=== PATIENT | female | born 1945 | race Caucasian/White ===

== ENCOUNTER 2017-10-21 12:00 | Outpatient (RCR) | payer MEDICARE, SELFPAY ==
--- NOTE | 2017-09-13 13:21 | HP.PTEVAL_ITS ---
Patient's Visit Information PETE SCHUMACHER is a 72 year old F referred to Physical Therapy by Jh Hewitt with a diagnosis of SPONDYLOSIS OF LUMBAR REGION WITHOUT MYELOPATHY, OA KNEES. Date of Evaluation: 09/13/17 Physical Therapist: Tomer Gonzalez PT, - Visit Plan Frequency: 2x /Week Duration: 4 Weeks Plan: Aquatic PT for GRADED PROGRESSION DLS ABD/BACK,POSTURAL EX'S ,LE ROM , STRENGTHEING - Subjective Subjective: This 72 y/o female presents to physical therapy with lumbar pain with radicular symptoms in legs. Patient has had lumbar pain and radicular symptosmfor about 4 months. Pain located right lumbar radicular symtpoms buttuck hams . Symptoms worse walking,standing less than 5 min,sitting,bending , lifting. Symptoms better with heat. Bowel/bladder good. Cough/sneezing increase symptoms. Pain affects sleeepnig. Patient pain affects ADL'S and housework tasks washing ,dishing,brushing teeth. Patient symptoms affect QOL . Patient has no prior PT or falls.Patient has h/o Alzheimers. Patient ambulates with rollator. SOCIAL: single. VOCATION: retired - Pain Right Back Pain Intensity (Out of 10): 10 Pain Intensity Range: 10 Right Lower Extremity Pain Intensity (Out of 10): 10 Pain Intensity Range: 10 - Objective POSTURE: mild foward posture. GAIT: ambulates with rollator reciprocal pattern mild foward posture. NEURO: c/o parathesia/tingling right leg ,reflexes L3-4,L4 -5,L5-S1 1/3. MMT: quads/hams/hip flexion 4-/5,ankle 4/5. SYMMTRIES: align. PALPATION: tender SI/LS. LUMBAR ROM: flexion mod loss pain,extension mod/ severe loss pain,side glides mod loss pain. FLEXABLITY: hams mod tight. AROM : supine knee flexion 0-130 degrees bilateral - Special Tests L/S Slump test left side: Negative L/S Slump test right side: Positive L/S Left Straight Leg Raise: Negative L/S Right Straight Leg Raise: Positive - Goals Goal 1:: Patient to be Independant with Aquatic PT Goal Time Frame: 4-6 Weeks Goal 2:: Patient to be Independant with posture to manage lumbar pain Goal Time Frame: 4-6 Weeks Goal 3:: Patient to decrease lumbar pain and radicylar symptosm by 50% or greater to improve function. Goal Time Frame: 4-6 Weeks Goal 4:: Patient to increase strength of BLE to 4/5 to improve walking and standing. Goal Time Frame: 4-6 Weeks Goal 5:: Patient be able to walk and standing greater than 10 min to improve ADL 'S Goal Time Frame: 4-6 Weeks - Rehabilitation Potential Physical Therapy Diagnosis: This patient complexity issues with lumbar pain with poor ROM ,decrease strength ,uses rollator ,thus affects standing and ADL' S . Patient will benifit from skilled PT Rehabilitation Potential: Good - Anticipated Interventions Patient/Client Instruction: Educate patient on: Condition, Plan of Care For the Purpose of:: To decrease pain, To increase ROM, To improve muscle performance and motor function, To increase tolerance to activity/condition/ position, To improve ability of physical actions for home/community/work/leisure , To improve health of tissue, To decrease soft tissue restriction, To improve ability to perform tasks related to life management Therapeutic Exercise to Include: Strength training, Body mechanics, Postural training, Flexibilty training, In an aquatic setting, Dynamic Lumbar Stabilization For the Purpose of:: To decrease pain, To increase ROM, To improve muscle performance and motor function, To improve ability to perform ADL's, To increase tolerance to activity/condition/position, To improve ability of physical actions for home/community/work/leisure, To improve health of tissue, To decrease soft tissue restriction, To increase flexibility/ROM, To improve ability to perform tasks related to life management Thank you for the opportunity to evaluate your patient. For Medicare and Medicare HMO plans, please review the plan of care and approve it. It will need to be FAXED BACK to us at [phone] for Medicare purposes. Please let me know if there are questions or concerns regarding this plan of care. Physician Signature: Date:
--- NOTE | 2017-10-21 12:25 | HP.PTREVAL_ITS ---
Jh Hewitt, It has been my pleasure to treat PETE SCHUMACHER over the last 5 visits for SPONDYLOSIS OF LUMBAR REGION WITHOUT MYELOPATHY,OA KNEES. Please see the progress note below for an update on the physical therapy plan of care! Subjective: Seen orthopedic Lumbar surgery .. Patient is high risk for. lumbar surgery. Plan for epidural injection. MD wants to cont with Aquatic Objective/Function: POSTURE: mod foward posture ,trunk flexed foward ,hips/ knees flexed. GAIT: ambulates with rollator hips/knees flexed foward posture reciprocal pattern slow christina. MMT: quads/hams3+/5 right,left 4-/5,hip flexion right. 3+/5,left 4-/5,ankle 4/5. LUMBAR ROM: flexion mod loss, extension severe loss Plan Plan: Cont with poc Goals Goal 1:: Patient to be Independant with Aquatic PT Goal Time Frame: 4-6 Weeks Goal Progress: Progressing Goal 2:: Patient to be Independant with posture to manage lumbar pain Goal Time Frame: 4-6 Weeks Goal Progress: Progressing Goal 3:: Patient to decrease lumbar pain and radicylar symptosm by 50% or greater to improve function. Goal Time Frame: 4-6 Weeks Goal Progress: Progressing Goal 4:: Patient to increase strength of BLE to 4/5 to improve walking and standing. Goal Time Frame: 4-6 Weeks Goal Progress: Progressing Goal 5:: Patient be able to walk and standing greater than 10 min to improve ADL 'S Goal Time Frame: 4-6 Weeks Anticipated Interventions Patient/Client Instruction: Educate patient on: Condition, Plan of Care For the Purpose of:: To decrease pain, To increase ROM, To improve muscle performance and motor function, To increase tolerance to activity/condition/ position, To improve ability of physical actions for home/community/work/leisure , To improve health of tissue, To decrease soft tissue restriction, To improve ability to perform tasks related to life management Therapeutic Exercise to Include: Strength training, Body mechanics, Postural training, Flexibilty training, In an aquatic setting, Dynamic Lumbar Stabilization For the Purpose of:: To decrease pain, To increase ROM, To improve muscle performance and motor function, To improve ability to perform ADL's, To increase tolerance to activity/condition/position, To improve ability of physical actions for home/community/work/leisure, To improve health of tissue, To decrease soft tissue restriction, To increase flexibility/ROM, To improve ability to perform tasks related to life management Please do not hesitate to contact me at [phone] by phone or Fax: if you have questions or concerns regarding this new plan of care! Sincerely, Tomer Gonzalez, PT,
--- NOTE | 2018-01-27 16:24 | HP.PTDCNRP_ITS ---
HP - Discharge Summary (1) - Patient Information PETE SCHUMACHER was seen in my office for initial evaluation on 09/13/17. The following Plan of Care was established for this patient: Initial Frequency: 2x /Week Initial Duration: 4 Weeks - Anticipated Interventions Patient/Client Instruction: Educate patient on: Condition, Plan of Care For the Purpose of:: To decrease pain, To increase ROM, To improve muscle performance and motor function, To increase tolerance to activity/condition/position, To improve ability of physical actions for home/community/work/leisure, To improve health of tissue, To decrease soft tissu e restriction, To improve ability to perform tasks related to life management Therapeutic Exercise to Include: Strength training, Body mechanics, Postural training, Flexibilty training, In an aquatic setting, Dynamic Lumbar Stabilization For the Purpose of:: To decrease pain, To increase ROM, To improve muscle performance and motor function, To improve ability to perform ADL's, To increase tolerance to activity/condition/position, To improve ability of physical actions for home/community/work/leisure, To improve health of tissue, To decrease soft tissue restriction, To increase flexibility/ROM, To improve ability to perform tasks related to life management This patient was last seen in our office 10/21/17. Pertinent comments regarding their Physical therapy will appear below: Patient seen for PT for lumbar pain for Aquatic PT for DLS,postural ex's,LE STRENGTHENING. Patient plans to have epidural injection and seen Orthopedic assistive technology specialist . Thus is d/c but plan to return. At this point I will be discontinuing this patient from physical therapy. I would be happy to see this patient again in the future if found appropriate by the physician. Thank you! Tomer Gonzalez, PT, Cert MDT, OCS
== END 2017-10-21 19:00 | disposition home or self-care (01) ==
LOC: PT 12:00
PROVIDERS: Family Provider Internal Medicine; PCP Internal Medicine; Visit Provider Internal Medicine
DX: M47.816 Spondylosis without myelopathy or radiculopathy, lumbar region (principal); M17.0 Bilateral primary osteoarthritis of knee
CPT/HCPCS: 97113; 97162; 97530

== ENCOUNTER 2018-04-07 10:30 | Outpatient (RCR) | payer MEDICARE, SELFPAY ==
--- NOTE | 2018-02-03 12:49 | HP.PTEVAL_ITS ---
Patient's Visit Information PETE SCHUMACHER is a 72 year old F referred to Physical Therapy by Tanner Lopez MD with a diagnosis of LUMBOSACRAL RADICULITIS,DDD OF LUMBOSACRAL INTERVERTBRAL DISC,SPONDYLOSIOS. Date of Evaluation: 02/03/18 Physical Therapist: Tomer Gonzalez, PT, Cert MDT, OCS - Visit Plan Frequency: 2x /Week Duration: 4 Weeks Plan: Aquatic PT for lumbar ROM ,strength/flexablity BLE ,conditioning - Subjective Findings: This 72 y/o female presents to physical therapy with lumbar pain for many years. Patient pain located symmtrical lumbar described as ache. Symptoms worse with walking,standing ,standing and ADL'S. Patient has DEVELOPMENT ADMINISTRATOR assist with bathing,cleaning and cooking. Patient symptoms better with rest and sitting. Symptoms affect sleeping . Patient has parathesia legs. Patient uses QC with gait for extended distances. Bowel/bladder good. Coughing/sneezing-. Patient seen pain management for injections which helped pain. Patient pain and weakness in legs affect QOL and function. Patient has had prior PT -Aquatics. SOCIAL: single. VOCATION: retired - Pain Bilateral Back Pain Intensity (Out of 10): 8 Pain Intensity Range: 10 - Objective POSTURE: mild foward posture hips/knees flexed. PALAPTION:tender L-S. NEURO: parathesia/tingling legs ,reflexes L3-4,L4-5,L5-S1 1/3. SYMMTRIES: align. GAIT: slow cadAnce mild foward posture with 2point using QC. MMT: quads/hams 4- /5,hip flexion 3+/5,ankle 4-/5. LUMBAR ROM: mod/severe loss flexion,extension severe,side glides mod/severe. FLEXABLITY: hams min tight - Special Tests L/S Slump test left side: Negative L/S Slump test right side: Negative L/S Left Straight Leg Raise: Negative L/S Right Straight Leg Raise: Negative - Goals Goal 1:: Independant with Aquatic PT Goal Time Frame: 4-6 Weeks Goal 2:: Patient to decrease lumbar pain by 50 % or greater to improve function Goal Time Frame: 4-6 Weeks Goal 3:: Patient to improve gait with less pain by 50% community distances Goal Time Frame: 4-6 Weeks Goal 4:: Patient to improve lumbar ROM for function recovery Goal Time Frame: 4-6 Weeks Goal 5:: Patient improve ANIKA lumbar score by 5 points for QOL. Goal Time Frame: 4-6 Weeks Goal 6:: Patient to participate with ADL'S with min limitations - Rehabilitation Potential Physical Therapy Diagnosis: This patient has multiple comorbities along with pain back and legs ,poor lumbar ROM ,strength,decrease gait and standing thus benifit from skilled PT Rehabilitation Potential: Good - Anticipated Interventions Patient/Client Instruction: Educate patient on: Condition, Plan of Care For the Purpose of:: To decrease pain, To increase ROM, To improve muscle performance and motor function, To improve ability to perform ADL's, To improve performance and independence with ADL's, To improve ability of physical actions for home/community/work/leisure, To improve health of tissue, To decrease soft tissue restriction, To increase flexibility/ROM, To improve ability to perform tasks related to life management Therapeutic Exercise to Include: Strength training, Body mechanics, Postural training, Flexibilty training, In an aquatic setting, Active ROM, Dynamic Lumbar Stabilization For the Purpose of:: To decrease pain, To increase ROM, To improve muscle performance and motor function, To improve ability to perform ADL's, To increase tolerance to activity/condition/position, To improve ability of physical actions for home/community/work/leisure, To improve gait and locomotor functions, To decrease soft tissue restriction, To improve balance, To improve ability to perform tasks related to life management Thank you for the opportunity to evaluate your patient. For Medicare and Medicare HMO plans, please review the plan of care and approve it. It will need to be FAXED BACK to us at [phone] for Medicare purposes. For Medicare only, by signing this I certify the plan of care. Please let me know if there are questions or concerns regarding this plan of care. Physician Signature: Date:
--- NOTE | 2018-03-08 10:57 | HP.PTREVAL ---
Tanner Lopez MD, It has been my pleasure to treat PETE SCHUMACHER over the last 5 visits for LUMBOSACRAL RADICULITIS,DDD OF LUMBOSACRAL INTERVERTBRAL DISC,SPONDYLOSIOS. Please see the progress note below for an update on the physical therapy plan of care! Subjective: Doing better overall ..able to bend. Able to perform my ADLS at home Objective/Function: POSTURE: mild foward posture. GAIT: ambulates with rollator mild foward posture reciprocal pattern. MMT: quads/hams 4/5,hip flexion 4-/5. LUMBAR ROM: flexion min loss,extension ,mod loss,side glides min/mod loss Plan Plan: cont with POC with Aquatic PT DLS,POSTURE EX'S,LUMBAR ROM,LE STRENGTHENING Goals Goal 1:: Independant with Aquatic PT Goal Time Frame: 4-6 Weeks Goal Progress: Progressing Goal 2:: Patient to decrease lumbar pain by 50 % or greater to improve function Goal Time Frame: 4-6 Weeks Goal 3:: Patient to improve gait with less pain by 50% community distances Goal Time Frame: 4-6 Weeks Goal 4:: Patient to improve lumbar ROM for function recovery Goal Time Frame: 4-6 Weeks Goal 5:: Patient improve ANIKA lumbar score by 5 points for QOL. Goal Time Frame: 4-6 Weeks Goal 6:: Patient to participate with ADL'S with min limitations Anticipated Interventions Patient/Client Instruction: Educate patient on: Condition, Plan of Care For the Purpose of:: To decrease pain, To increase ROM, To improve muscle performance and motor function, To improve ability to perform ADL's, To improve performance and independence with ADL's, To improve ability of physical actions for home/community/work/leisure, To improve health of tissue, To decrease soft tissue restriction, To increase flexibility/ROM, To improve ability to perform tasks related to life management Therapeutic Exercise to Include: Strength training, Body mechanics, Postural training, Flexibilty training, In an aquatic setting, Active ROM, Dynamic Lumbar Stabilization For the Purpose of:: To decrease pain, To increase ROM, To improve muscle performance and motor function, To improve ability to perform ADL's, To increase tolerance to activity/condition/position, To improve ability of physical actions for home/community/work/leisure, To improve gait and locomotor functions, To decrease soft tissue restriction, To improve balance, To improve ability to perform tasks related to life management Please do not hesitate to contact me at [phone] by phone or if you have questions or concerns regarding this new plan of care! Sincerely, Tomer Gonzalez, PT, Cert MDT, OCS
--- NOTE | 2018-07-20 10:10 | HP.PT.NRP ---
HP - Discharge Summary (1) - Patient Information PETE SCHUMACHER was seen in my office for initial evaluation on 02/03/18. The following Plan of Care was established for this patient: Initial Frequency: 2x /Week Initial Duration: 4 Weeks - Anticipated Interventions Patient/Client Instruction: Educate patient on: Condition, Plan of Care For the Purpose of:: To decrease pain, To increase ROM, To improve muscle performance and motor function, To improve ability to perform ADL's, To improve performance and independence with ADL's, To improve ability of physical actions for home/community/work/leisure, To improve health of tissue, To decrease soft tissue restriction, To increase flexibility/ROM, To improve ability to perform tasks related to life management Therapeutic Exercise to Include: Strength training, Body mechanics, Postural training, Flexibilty training, In an aquatic setting, Active ROM, Dynamic Lumbar Stabilization For the Purpose of:: To decrease pain, To increase ROM, To improve muscle performance and motor function, To improve ability to perform ADL's, To increase tolerance to activity/condition/position, To improve ability of physical actions for home/community/work/leisure, To improve gait and locomotor functions, To decrease soft tissue restriction, To improve balance, To improve ability to perform tasks related to life management This patient was last seen in our office . Pertinent comments regarding their Physical therapy will appear below: Patient seen for PT for lumbar radiculopathy for Aquatic therapy focusing on ROM,strength,thus is d/c. At this point I will be discontinuing this patient from physical therapy. I would be happy to see this patient again in the future if found appropriate by the physician. Thank you! Tomer Gonzalez, PT, Cert MDT, OCS
== END 2018-04-07 19:00 | disposition home or self-care (01) ==
LOC: PT 10:30
PROVIDERS: Family Provider Internal Medicine; PCP Internal Medicine; Referring Provider Anesthesiology Pain Medicine; Visit Provider Anesthesiology Pain Medicine
DX: M54.17 Radiculopathy, lumbosacral region (principal); M51.37 Other intervertebral disc degeneration, lumbosacral region; M47.817 Spondylosis without myelopathy or radiculopathy, lumbosacral region; M79.10 Myalgia, unspecified site; M46.96 Unspecified inflammatory spondylopathy, lumbar region
CPT/HCPCS: 97113; 97162; 97530

== ENCOUNTER 2018-05-10 01:23 | Emergency (ER) | payer MEDICARE, SELFPAY ==
[2018-05-10 01:24] VITALS: BP 111/67; PULSE 75; RESP 18; TEMP 36.6; O2SAT 95; BMI 30.4
--- NOTE | 2018-05-10 01:42 | CT_ITS ---
STUDY: CT BRAIN WITHOUT CONTRAST REASON FOR EXAM: Female, 73 years old. Passed out hitting head. Dementia. RADIATION DOSAGE (If Supplied By Facility): CTDIvol = ( 44.99 ) mGy, DLP = ( 762.36 ) mGycm TECHNIQUE: Transaxial CT imaging of the brain was performed without administration of intravenous contrast material. Individualized dose optimization techniques were used for this CT. COMPARISON: January 06, 2017. FINDINGS: Normal soft tissue structures. Normal calvarium. Normal size ventricles and extra-axial spaces for the patient's age. Normal white matter tracts of the cerebral hemispheres. Normal basal ganglia and thalami. Normal brainstem. Normal cerebellum. There is no intracranial hemorrhage. There are no findings of an acute ischemic infarction. Mild ethmoid, right maxillary and left sphenoid sinus mucosal thickening. CT/Brain/Head without Contrast IMPRESSION: Normal unenhanced CT scan of the brain for the patient's age. Mild paranasal sinus mucosal thickening which has developed since the prior study. Electronically Signed: Fitz Schilling MD at 3:35 EDT , Service support ,
--- NOTE | 2018-05-10 01:42 | EKG12_ITS ---
Test Reason : Blood Pressure : / mmHG Vent. Rate : 075 BPM Atrial Rate : 075 BPM P-R Int : 160 ms QRS Dur : 082 ms QT Int : 404 ms P-R-T Axes : 062 025 063 degrees QTc Int : 451 ms Sinus rhythm with Premature atrial complexes Low voltage QRS (Limb leads) Borderline ECG Confirmed by ISHAAN FELICIANO, NORMA ([id number]), rewrite editor AUDELIA PRASAD ([id number]) on 05/13/2018 11:36:33 AM Referred By: Tanner Lopez Confirmed By:NORMA QUIROS MD
--- NOTE | 2018-05-10 01:43 | RAD_ITS ---
HISTORY: fall, bilateral hip pain COMPARISON: 12/17/2015 FINDINGS: XR AP pelvis and bilateral hips 5 views With comparison to previous, no significant change. No fracture or dislocation. Degenerative arthritis with mild narrowing of the right hip and moderate narrowing of the left hip. The SI joints are not widened. Extensive atherosclerotic calcifications. Left SFA stent graft in place. RAD/Hips B/L min 2 views w/ Pelvis IMPRESSION: 1. No fracture or acute osseous abnormality. 2. Chronic changes, as above. at 0244 Reported and signed by: Sukh Chery MD Electronically Signed: Sukh Chery, at 2:43 EDT Tel , Service support ,
--- NOTE | 2018-05-10 01:44 | ED.VIS.GEN ---
History of Present Illness Chief Complaint: Fall Narrative: She stated that she got up to use the bathroom this evening. She had a syncopal episode in the bathroom. She got lightheaded and passed out. She fell onto her buttocks. She stated she had the back of her head. She is having worsening pain in her low back. She has chronic low back pain and gets injections. She is having some pain in her buttock bilateral in the hips as well. She was able to stand up and get herself back to the couch. She is normally supposed to walk with a walker but did not take it tonight. Patient has minimal head pain. She denies any neck pain. Family and patient stated that she gets frequent syncope. She states is not uncommon for her to get up too quickly and get lightheaded and passed out. She feels no dizziness currently. Denies any other symptoms. No home treatment. Brought in by EMS. - Past Medical History (1) Dehydration Status: Acute (2) Gastroenteritis Status: Acute (3) Renal azotemia Status: Acute (4) Anxiety disorder Status: Chronic (5) History of CVA (cerebrovascular accident) Status: Chronic (6) History of DVT (deep vein thrombosis) Status: Chronic Comment: 1982 (7) Hyperlipidemia Status: Chronic (8) Peripheral vascular disease Status: Chronic (9) Type 2 diabetes mellitus Status: Chronic (10) basal ganglion bleed, history of Status: Chronic Past Medical History - Allergies and Home Meds Allergies/Adverse Reactions: Allergies atorvastatin calcium [From Lipitor] Allergy (Verified 05/10/18 01:29) Unknown calcium Allergy (Verified 05/10/18 01:29) Unknown ibuprofen [From Motrin] Allergy (Verified 05/10/18 01:29) Unknown Primary Care Physician: Jh Hewitt MD [Primary Care Provider] - Prior records reviewed: Yes Surgical History: cholecystectomy Lives: With Family Smoking Status: Current every day smoker Alcohol: None Drugs: None - Family History Paternal Family History: Reports: No pertinent history Review of Systems General: Denies: Chills, Fever, Sweats Eyes: Denies: Visual changes - bilaterally, Diplopia ENT: Denies: Rhinorrhea, Sore throat Cardiovascular: Denies: Chest pain, Palpitations Respiratory: Denies: Dyspnea, Cough, Dyspnea on exertion Gastrointestinal: Denies: Abdominal pain, Nausea, Vomiting, Diarrhea, Melena, Hematochezia Genitourinary: Denies: Dysuria, Hematuria, Frequency Musculoskeletal: Reports: Back pain, Extremity Pain Skin: Denies: Rash, Wounds Neurological: Denies: Weakness, Numbness Physical Exam Vital Signs/Narrative: Vital Signs Temp Pulse Resp BP Pulse Ox 05/10/18 01:24 97.8 F 75 18 111/67 95 General: Well nourished, Well developed, No Acute Distress Head: Normocephalic, Atraumatic Eyes: Perrl, EOMI ENT: Moist mucous membranes, No rhinorrhea Neck: Supple, Nontender Cardiovascular: Regular rate, Regular rhythm, No murmurs Respiratory: No distress, CTA bilaterally, Chest nontender Abdomen: Soft, Nontender, Nondistended, Normal bowel sounds Back: Normal Inspection, Spinal tenderness - Lower lumbar diffuse tenderness without swelling or deformity. Negative for: Nontender Extremities: Nontender, No edema, - - Tenderness to her bilateral buttock. Decreased range of motion secondary to pain in the bilateral buttock. Skin: Normal color, No rash Neurological: Alert, Oriented x3, Cranial nerves II-XII grossly intact, Normal Strength, Normal Sensation Psychological: Normal affect, Normal Mood Diagnostic/Tx/Re-eval - Medical Decision Making Given IV fluids and a dose of morphine for the pain in her back and hips. Lab work and x-ray of her low back and bilateral hips obtained as well as EKG. x-ray of the hips showed nothing acute. X-ray of the lumbar spine shows L1 compression fracture indeterminate. Patient stated this is old and she is being treated for this chronically. I do not think she needs a CT of this area. She just fell on her buttocks. He has showed nothing acute. Reevaluation patient resting comfortably. I feel she can be discharged. He had multiple episodes like this in the past. Instructed to get up slowly and use her walker. I think she likely just had an orthostatic episode. ED Disposition - Plan for ED Patient: Diagnosis: Syncope, Acute exacerbation of chronic low back pain Instructions: What Is Syncope? Referrals: Jh Hewitt MD [Primary Care Provider] -
[2018-05-10] MEDS: Morphine 2 MG/ML Syringe IV (01:49)
[2018-05-10 01:54] VITALS: O2SAT 90
[2018-05-10 01:54] LABS: Absolute Lymphocyte Count 4.07 X10^3/ul (0.83-4.51); Absolute Neutrophil Count 3.9 X10^3/uL (2.0-7.7); Basophil# 0.03 X10^3/uL; Basophil% 0.3 % (0-1); Eosinophil# 0.18 X10^3/uL; Eosinophils% 2.1 % (0-5); Hematocrit 34.7 % (37-47); Hemoglobin 11.6 g/dl (12.0-15.0); Lymphocyte # 4.07 X10^3/ul (4.0); Lymphocyte % 46.6 % (19-41); Mean Corp Hgb Conc 33.4 g/gl (32-36); Mean Corpuscular Hgb 30.1 pg (27.0-32.0); Mean Corpuscular Volume 89.9 fL (81-99); Mean Platelet Vol. 10.6 fl (6.2-12.0); Monocyte# 0.57 X10^3/uL; Monocyte% 6.5 % (0-10); Neutrophil # 3.87 X10^3/uL (2.7-7.7); Neutrophil % 44.4 % (47-70); Platelet Count 212 K/mm3 (150-450); RBC Distribution Width CV 13.4 % (11.6-14.6); RBC Distribution Width SD 43.4 fl (35.1-43.9); Red Blood Count 3.86 M/mm3 (4.2-5.4); White Blood Count 8.7 K/mm3 (4.4-11.0)
[2018-05-10 01:55] LABS: POSITIVE COUNT NO; POSITIVE DIFFERENTIAL NO; POSITIVE MORPHOLOGY NO
[2018-05-10 02:13] LABS: Anion Gap 6 (5-15); BUN 22 mg/dL (7-18); BUN/Creat Ratio 22.6 RATIO (10-20); Calcium,Total 8.8 mg/dL (8.5-10.1); Chloride 105 mmol/L (98-107); Creatinine, Serum 0.97 mg/dL (0.55-1.02); EST Glomerular Filtration Rate 60 mL/min (>60); Est Glom Filt Rate - Afr Amer 73 mL/min (>60); Glucose 169 mg/dL (74-106); Potassium 3.7 mmol/L (3.5-5.1); Sodium Level 138 mmol/L (136-145)
--- NOTE | 2018-05-10 02:15 | RAD_ITS ---
STUDY: X-RAY - LUMBAR SPINE REASON FOR EXAM: Female, 73 years old. Low back pain after fall. TECHNIQUE: 3 view(s) of the lumbar spine were obtained. COMPARISON: December 17, 2015. FINDINGS: Normal lumbar lordosis. There is no substantial scoliosis. There is a normal alignment of the vertebrae. There is now a [id number] compression fracture L1 which has developed since the prior study. An acute fracture line is not identified. Mild disc space narrowing L1-L2 and L5-S1 not significantly changed. Small marginal osteophytes at several levels. Atherosclerotic calcification of the abdominal aorta without aneurysmal dilatation visualized. The soft tissue structures are unremarkable. RAD/Lumbar Spine 2 or 3 Views IMPRESSION: Compression fracture of L1 age indeterminate. If the patient has focal tenderness at this specific location correlate with cross-sectional imaging. Mild multilevel degenerative changes. Electronically Signed: Fitz Schilling MD at 3:31 EDT , Service support ,
[2018-05-10 03:14] VITALS: BP 113/68; PULSE 76; RESP 20; O2SAT 94
[2018-05-10 03:35] VITALS: BP 110/83; PULSE 81; RESP 16; O2SAT 95
== END 2018-05-10 03:48 | disposition home or self-care (01) ==
PROVIDERS: Emergency Provider Emergency Medicine; Family Provider Internal Medicine; PCP Internal Medicine
DX: R55 Syncope and collapse (principal); W19.XXXA Unspecified fall, initial encounter; Y93.9 Activity, unspecified; Y92.9 Unspecified place or not applicable; Y99.9 Unspecified external cause status; M54.5 Low back pain; G89.29 Other chronic pain; M25.552 Pain in left hip; M25.551 Pain in right hip; R51 Headache; E11.9 Type 2 diabetes mellitus without complications; E78.5 Hyperlipidemia, unspecified; I73.9 Peripheral vascular disease, unspecified; F41.9 Anxiety disorder, unspecified; F17.200 Nicotine dependence, unspecified, uncomplicated; Z79.82 Long term (current) use of aspirin; Z79.4 Long term (current) use of insulin; Z79.899 Other long term (current) drug therapy; Z86.718 Personal history of other venous thrombosis and embolism; Z86.73 Personal history of transient ischemic attack (TIA), and cerebral infarction without residual deficits
CPT/HCPCS: 70450; 72100; 73521; 80048; 84484; 85025; 93005; 96361; 96374; 99285; J7040; A4216

== ENCOUNTER 2018-11-16 19:04 | Observation (INO) | payer MEDICARE, SELFPAY ==
[2018-11-16 19:06] VITALS: BP 168/76; PULSE 79; PULSE 83; RESP 15; RESP 17; TEMP 36.4; TEMP 36.6; O2SAT 97; O2SAT 99; BMI 30.9
--- NOTE | 2018-11-16 19:57 | CT_ITS ---
STUDY: CT BRAIN WITHOUT CONTRAST REASON FOR EXAM: Female, 73 years old. Fall. Pain. RADIATION DOSAGE (If Supplied By Facility): CTDIvol = ( 44.99 ) mGy, DLP = ( 762.36 ) mGycm TECHNIQUE: Transaxial CT imaging of the brain was performed without administration of intravenous contrast material. Individualized dose optimization techniques were used for this CT. COMPARISON: 05/10/2018 FINDINGS: Normal soft tissue structures. Normal calvarium. Normal size ventricles and extra-axial spaces for the patient's age. Normal white matter tracts of the cerebral hemispheres. Normal basal ganglia and thalami. Normal brainstem. Normal cerebellum. There is no intracranial hemorrhage. There are no findings of an acute ischemic infarction. Normal visualized paranasal sinuses. CT/Brain/Head without Contrast IMPRESSION: Normal unenhanced CT scan of the brain. Electronically Signed: Mick Padron MD at 21:00 EDT , Service support ,
--- NOTE | 2018-11-16 19:58 | RAD_ITS ---
STUDY: X-RAY - PELVIS AND RIGHT HIP REASON FOR EXAM: Female, 73 years old. Fall. Pain. TECHNIQUE: 3 views of the pelvis and hip. COMPARISON: None. FINDINGS: There is a non-specific bowel gas pattern. There are atherosclerotic vascular calcifications of the pelvic arteries. Normal bilateral iliac wings, sacroiliac joints and visualized sacrum. Normal bilateral superior and inferior pubic rami. Normal pubic symphysis. Normal bilateral ischial tuberosities. Normal visualized femoral head. Normal acetabulum. Normal hip joint. RAD/HIP, UNI W/ Pelvis 2-3 Views IMPRESSION: No definite fractures or dislocations. Electronically Signed: Mick Padron MD at 21:01 EDT , Service support ,
--- NOTE | 2018-11-16 19:58 | EKG12_ITS ---
Test Reason : FALL Blood Pressure : / mmHG Vent. Rate : 085 BPM Atrial Rate : 085 BPM P-R Int : 160 ms QRS Dur : 082 ms QT Int : 380 ms P-R-T Axes : 062 029 054 degrees QTc Int : 452 ms Normal sinus rhythm Low voltage QRS Borderline ECG Confirmed by KAREEN FELICIANO, KARINA ([id number]), writer editor AUDELIA PRASAD ([id number]) on 11/23/2018 9:32:49 A M Referred By: Augustin Burciaga Confirmed By:KJ MATHUR MD
--- NOTE | 2018-11-16 20:04 | ED.DCSUM_ITS ---
- ER Visit Summary Date of Service: 11/16/18 Chief Complaint: Fall History of Present Illness: The patient is a 73 F presenting after fall. Patient was walking with her walker. She states the next thing she knows she woke up on the floor. She complains of right hip pain. She was able to get help to stand and was able to ambulate with pain after the fall. She states she has been getting dizzy recently and was seen by her primary care physician and had orthostatic vitals which were positive in the office. She denies chest pain or shortness of breath. Family states she has a history of dementia. She lives with her grandson. Physical Examination: Vitals are stable. Patient is afebrile. Alert no acute distress. HEENT exam is unremarkable. Neck is nontender Lungs are clear and equal bilaterally. Heart is regular rate and rhythm. Abdomen is soft nontender nondistended. Extremities right hip tenderness to palpation Skin is warm and dry. No focal neurologic deficit. Remainder of exam is unremarkable. Emergency Department Course and Treatment: EKG is sinus rate of 85. CBC normal except hemoglobin 11.5. Chemistries normal except BUN 25, creatinine 1.22. Urinalysis shows over 100 white blood cells. Urine culture was sent. Troponin is negative. Right hip x-ray shows no fracture. CT head shows no acute process. Patient was given Rocephin IV. She was given IV fluids, morphine, Zofran. Discussed with the hospitalist for observation. Disposition: Observation Impression: Syncope, UTI, right hip contusion This note was generated with [employer] dictation software. It may contain incorrect words, spelling, and punctuation that were not noted in review of the chart prior to signing ED Disposition - Plan for ED Patient: Referrals: Jh Hewitt MD [Primary Care Provider] -
[2018-11-16 20:20] LABS: Absolute Neutrophil Count 5.7 X10^3/uL (2.0-7.7); Basophil# 0.04 X10^3/uL; Basophil% 0.4 % (0-1); Hematocrit 36.4 % (37-47); Hemoglobin 11.5 g/dL (12.0-15.0); Lymphocyte % 39.2 % (19-41); Mean Corp Hgb Conc 31.6 g/dL (32-36); Mean Corpuscular Hgb 28.9 pg (27.0-32.0); Mean Corpuscular Volume 91.5 fL (81-99); Mean Platelet Vol. 11.9 fl (6.2-12.0); Monocyte% 4.8 % (0-10); NRBC Flagged by Analyzer 0 % (0-5); Neutrophil # 5.68 X10^3/uL (2.7-7.7); Neutrophil % 54.2 % (47-70); Platelet Count 209 K/mm3 (150-450); RBC Distribution Width SD 49.9 fl (35.1-43.9); Red Blood Count 3.98 M/mm3 (4.2-5.4); White Blood Count 10.5 K/mm3 (4.4-11.0)
[2018-11-16] MEDS: Ondansetron 4 MG/2 ML Vial IV (20:22)
[2018-11-16] MEDS: Morphine 2 MG/ML Syringe IV ×2 (20:24→21:52)
[2018-11-16 20:35] LABS: Anion Gap 9 (5-15); BUN 25 mg/dL (7-18); BUN/Creat Ratio 20.5 RATIO (10-20); Calcium,Total 8.9 mg/dL (8.5-10.1); Chloride 106 mmol/L (98-107); Creatinine, Serum 1.22 mg/dL (0.55-1.02); EST Glomerular Filtration Rate 46 mL/min (>60); Est Glom Filt Rate - Afr Amer 56 mL/min (>60); Estimated Creatinine Clearance 34.99 ml/min; Glucose 63 mg/dL (74-106); Potassium 4.2 mmol/L (3.5-5.1); Sodium Level 143 mmol/L (136-145)
[2018-11-16 20:36] LABS: Color, Urine Yellow (Yellow); Glucose, Dipstick Normal (Normal); Ketone-Dipstick Negative (Negative); Leukocyte Esterase-Dipstick 500 /ul (Negative); Mucous, Urine 0 SEEN /hpf (<or=2+); Nitrite-Dipstick Positive (Negative); Occult Blood-Urine 25 /ul (Negative); Protein-Dipstick 15 mg/dl (Negative); Red Blood Cells-Urine 0 SEEN /hpf (0-5); Urine Bilirubin Dipstick Negative (Negative); Urine Clarity Sl. Cloudy (Clear); Urine Urobilinogen Normal (Normal)
[2018-11-16 20:52] LABS: Bacteria 4+ /hpf (None Seen); Squamous Epithelial Cells - UA 0-5 SEEN /hpf (5-10); White Blood Cells >100 SEEN /hpf (0-5)
[2018-11-16 21:11] VITALS: BP 161/74; PULSE 85; RESP 20; O2SAT 97
[2018-11-16] MEDS: Ceftriaxone 1 GM/50 ML BAG IV (21:16)
[2018-11-16 21:54] VITALS: BP 153/73; PULSE 88; RESP 20; O2SAT 98
--- NOTE | 2018-11-16 21:56 | PCM.HP.STD ---
Problem List (1) Acute on recurrent syncope with collapse Status: Acute (2) Gastroenteritis Status: Inactive (3) Peripheral vascular disease Status: Chronic (4) History of DVT (deep vein thrombosis) Status: Chronic Comment: 1981 (5) basal ganglion bleed, history of Status: Chronic (6) Hyperlipidemia Status: Chronic (7) Type 2 diabetes mellitus Status: Chronic (8) History of CVA (cerebrovascular accident) Status: Chronic (9) Renal azotemia Status: Inactive (10) Anxiety disorder Status: Chronic (11) Acute on recurrent fall Status: Acute History of Present Illness Date of Admission: 11/16/18 Chief Complaint: Syncope with fall and collapse The patient is a 73 year old F with multiple comorbidities including 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 Patient said she was walking with walker and suddenly she passed out and fell on her right hip. Patient denies prodromal symptoms of dizziness, blurry vision. She passed out for a few minutes and woke up with drowsiness/lethargic and came back to normal senses after an hour. Similar event happened about a month ago when she also passed out with fall and at that time her walker was caught. She is back to her normal since. Complain of pain over right hip. Initial evaluation in ED with x-ray and CT head does not show acute change. No fracture or dislocation of hip and pelvis. At home, patient is on midodrine all the exact indication unclear what might have POTS/orthostatic hypotension. Vitals are stable. EKG shows normal sinus rhythm at 85 bpm. Previous EKG of May 2018 was also noted normal sinus rhythm with PACs. Patient complain of dysuria/burning micturition along with skin urgency for about 3 days. Patient also has suprapubic/perineal pain. UA is positive of pyuria more than 100 cells, 4+ bacteria, LE and nitrite positive. No leukocytosis on WBC count.. [] Past Medical History Past Medical History (Chronic Problems): Chronic Problems Peripheral vascular disease (Chronic) History of DVT (deep vein thrombosis) (Chronic) 1981 basal ganglion bleed, history of (Chronic) Hyperlipidemia (Chronic) Type 2 diabetes mellitus (Chronic) History of CVA (cerebrovascular accident) (Chronic) Anxiety disorder (Chronic) Allergies atorvastatin calcium [From Lipitor] Allergy (Verified 11/16/18 19:05) Unknown calcium Allergy (Verified 11/16/18 19:05) Unknown ibuprofen [From Motrin] Allergy (Verified 11/16/18 19:05) Unknown Home Medications: Ambulatory Orders Medication Instructions Recorded Aspirin [Aspirin, Baby] 81 mg PO DAILY@0800 03/09/13 Gabapentin [Neurontin] 100 mg PO TID 03/09/13 Metformin HCl [Glucophage] 1,000 mg PO BID 03/09/13 Pioglitazone [Actos] 45 mg PO DAILY 03/09/13 Clonazepam 0.5 mg PO BID PRN PRN 10/19/13 Omeprazole [Prilosec] 20 mg PO BID 10/19/13 Venlafaxine HCl [Effexor] 75 mg PO BID 10/19/13 Albuterol Inhaler [Ventolin Hfa] 1 puff INHALATION Q4H PRN PRN 01/03/14 Olanzapine [Zyprexa] 5 mg PO QHS 01/03/14 Fluticasone/Salmeterol [Advair 1 puff INHALATION BID #1 inhaler 05/15/14 250/50 Mcg Diskus] Insulin Glargine [Lantus SoloStar 65 units SC BID 05/15/14 Pen] Adalimumab [Humira] 40 mg SQ Q14D 05/25/15 Cholecalciferol (VIT D3) [Vitamin 1,000 mg PO DAILY 01/06/17 D3] Midodrine HCl [Proamatine] 10 mg PO TID 01/06/17 Rosuvastatin Calcium [Crestor] 20 mg PO QHS 01/06/17 Calcium Carbonate 500 mg PO BID 11/16/18 Hydrocortisone 2.5% Crm [Hytone] 1 applic TOPICAL BID 11/16/18 Insulin Lispro [Humalog KwikPen] 6 unit SQ TID 11/16/18 Memantine HCl 5 mg PO BID 11/16/18 Surgical History: cholecystectomy Smoking Status: Current every day smoker - *Family History Paternal History Items: No pertinent history Review of Systems Constitutional: Reports: Fatigue. Denies: Chills, Fever, Weight Change HEENT: Denies: Head Aches, Sinus Congestion, Sinus Drainage Cardiovascular: Denies: Chest Pain, Palpitations Respiratory: Denies: Cough, Shortness of breath at rest, Sputum production Gastrointestinal: Denies: Abdominal Pain, Nausea, Vomiting Genitourinary: Reports: Dysuria, Frequency, Hesitancy, Incontinence, Urgency Musculoskeletal: Reports: Joint Pain, Joint stiffness. Denies: Joint Tenderness Skin: Denies: Rash, Wounds Neurological: Reports: Balance problems - On walker, Incoordination. Denies: Blurred vision, Double vision, Focal weakness, Numbness, Tingling Psychiatric: Reports: Anxiety, Depression. Denies: Homicidal Ideations, Suicidal Ideations Hematologic/ Lymphatic: Denies: Easy Bruising, Easy Bleeding VTE Information - Inpt Only VTE Present on Admission: No VTE Mechan Device Prophylaxis: None VTE Pharm Prophylaxis ordered?: Yes Patient Problems: Active and Suspected Problems Acute on recurrent syncope with collapse (Acute) Acute on recurrent fall (Acute) - Physical Exam General: Alert, Oriented x3, Cooperative HEENT: Atraumatic, PERRLA, EOMI, Normocephalic Oral: Dry Mucosa Neck: Supple, No JVD, Negative Carotid Bruits Lungs: Clear to auscultation, Normal air movement, No rhonchi, No wheeze, No rales Cardiovascular: Regular rate, Regular Rhythm, Normal S1, Normal S2, No murmurs Abdomen: Bowel Sounds Present, Soft, Non-Distended, - - Mild suprapubic tenderness. Extremities: No edema, Capillary Refill Less than 3 Seconds Skin: No rashes, No breakdown Musculoskeletal: Arthritic Changes, Tenderness - Tenderness present over lateral aspect of right hip and pelvis. No point tenderness over groin area/hip joint Neurological: Cranial nerves II-XII grossly intact, Deep Tendon Reflexes 2+/4 and Symmetrical, Neuro grossly intact Psych/Mental Status: Normal Affect, Appropriate Vital Signs Temp Pulse Resp BP Pulse Ox 97.9 F 88 20 H 153/73 H 98 11/16/18 19:06 11/16/18 21:54 11/16/18 21:54 11/16/18 21:54 11/16/18 21:54 Oxygen Delivery Method Room Air Weight: 174 lb 6.17 oz Body Mass Index (BMI) 30.9 Laboratory Tests Past 24 Hrs 11/16/18 11/16/18 11/16/18 19:31 19:31 20:26 WBC 10.5 RBC 3.98 L Hgb 11.5 L Hct 36.4 L MCV 91.5 MCH 28.9 MCHC 31.6 L RDW Std Deviation 49.9 H RDW Coeff of Fadumo 15.0 H Plt Count 209 MPV 11.9 Immature Gran % (Auto) 0.400 Neut % (Auto) 54.2 Lymph % (Auto) 39.2 [place] % (Auto) 4.8 Eos % (Auto) 1.0 Baso % (Auto) 0.4 Absolute Neuts (auto) 5.7 Absolute Lymphs (auto) 4.10 Nucleated RBC % 0 Sodium 143 Potassium 4.2 Chloride 106 Carbon Dioxide 28.0 Anion Gap 9 BUN 25 H Creatinine 1.22 H Estim Creat Clear Calc 34.99 Est GFR (MDRD) Af Amer 56 L Est GFR (MDRD) Non-Af 46 L BUN/Creatinine Ratio 20.5 H Glucose 63 L Calcium 8.9 Troponin I < 0.015 Urine Color Yellow Urine Clarity Sl. 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 Patient said she was walking with walker and suddenly she passed out and fell on her right hip. Patient denies prodromal symptoms of dizziness, blurry vision. She passed out for a few minutes and woke up with drowsiness/lethargic and came back to normal senses after an hour. EKG shows normal sinus rhythm at 85 bpm. Previous EKG of May 2018 was also noted normal sinus rhythm with PACs. 1. Syncope with collapse and fall 2 times in last 1 month; possible related to UTI/polypharmacy as she is on multiple antipsychotic medications: Patient is being admitted in PCU. Orthostatic vitals, 2D echo tomorrow morning. Serial troponin enzymes. Patient denies history of coronary artery disease but has peripheral arterial disease. Previous echo of January 2017 shows EF 65% with a stage I diastolic dysfunction. Age-related changes of valves. Mild aortic stenosis. Otherwise unremarkable. IV fluid normal saline at 100 mL/h. PT and OT ordered 2. Cystitis/UTI: Patient HAS dysuria/burning micturition along with skin urgency for about 3 days. UA is positive of pyuria more than 100 cells, 4+ bacteria, LE and nitrite positive. No leukocytosis on WBC count.This may be degenerative for her syncope/fall. Started on IV Rocephin. Follow urine culture. Boyer catheter was inserted in ED, indication unclear 3. Type 2 diabetes mellitus: Accu-Chek before meals and at bedtime and cover with Humalog sliding scale. Glucose is 63 mg in BMP. Oral hypoglycemic agents on hold. 4. Multiple comorbidities including history of DVT and history of CVA, peripheral arterial disease of visceral arteries, celiac trunk and SMA.: Home meds reconciliation done. She is not on oral anticoagulants at home. 5. Patient also has dementia, anxiety and depression: Patient is on memantine, clonazepam, Zyprexa and Effexor. Hold medication if patient is lethargic, disoriented or confusion/sedated. DVT prophylaxis: Lovenox 40 mg subcu daily. Laboratory Results 11/16/18 19:31: WBC 10.5, RBC 3.98 L, Hgb 11.5 L, Hct 36.4 L, MCV 91.5, MCH 28.9, MCHC 31.6 L, RDW Std Deviation 49.9 H, RDW Coeff of Fadumo 15.0 H, Plt Count 209, MPV 11.9, Immature Gran % (Auto) 0.400, Neut % (Auto) 54.2, Lymph % (Auto) 39.2, [place] % (Auto) 4.8, Eos % (Auto) 1.0, Baso % (Auto) 0.4, Absolute Neuts (auto) 5.7, Absolute Lymphs (auto) 4.10, Nucleated RBC % 0 11/16/18 19:31: Sodium 143, Potassium 4.2, Chloride 106, Carbon Dioxide 28.0, Anion Gap 9, BUN 25 H, Creatinine 1.22 H, Estim Creat Clear Calc 34.99, Est GFR (MDRD) Af Amer 56 L, Est GFR (MDRD) Non-Af 46 L, BUN/Creatinine Ratio 20.5 H, Glucose 63 L, Calcium 8.9, Troponin I < 0.015 11/16/18 20:26: Urine Color Yellow, Urine Clarity Sl. Cloudy, Urine pH 8.0, Ur Specific Speculator 1.010, Urine Protein 15 H, Urine Glucose (UA) Normal, Urine Ketones Negative, Urine Occult Blood 25 H, Urine Nitrite Positive H, Urine Bilirubin Negative, Urine Urobilinogen Normal, Ur Leukocyte Esterase 500 H, Urine RBC 0 SEEN, Urine WBC >100 SEEN, Ur Squamous Epith Cells 0-5 SEEN, Urine Bacteria 4+, Urine Mucus 0 SEEN Clinical Impression(s) from Imaging Studies Brain CT 11/16/18 19:57 IMPRESSION: Normal unenhanced CT scan of the brain. Hip/Pelvis X-Ray 11/16/18 19:58 IMPRESSION: No definite fractures or dislocations. Code Visit OBSV E&M: 17396 Initial observation care L3
[2018-11-16 22:08] VITALS: BMI 29.6
[2018-11-16 22:15] VITALS: PULSE 82
[2018-11-16 22:17] VITALS: BP 120/64; BP 130/66; PULSE 82; RESP 18; TEMP 36.6; O2SAT 93
[2018-11-16 22:18] VITALS: BMI 29.6
[2018-11-16 22:55] LABS: Magnesium 1.4 mg/dL (1.6-2.6)
[2018-11-16 22:57] VITALS: BP 125/66; BP 66/36; BP 97/56; PULSE 82; PULSE 85; PULSE 90
[2018-11-16] MEDS: 0.9% Normal Saline 1,000 ML 75 ML IV (23:04)
[2018-11-16 23:26] LABS: Bedside Glucose 67 mg/dL (70-110)
[2018-11-16] MEDS: 0.9% NaCl Peripheral Flush Adult/Peds IV (23:48)
[2018-11-16] MEDS: 0.9% Normal Saline 1,000 ML 100 ML IV (23:50)
[2018-11-16] MEDS: Midodrine HCl 5 MG Tablet 10 MG PO (23:52)
[2018-11-16] MEDS: Gabapentin 100 MG Capsule PO (23:52)
[2018-11-16] MEDS: Enoxaparin 40 MG/0.4 ML Syringe SC (23:53)
[2018-11-16] MEDS: Rosuvastatin 20 MG Tablet PO (23:55)
[2018-11-16] MEDS: OLANZapine 5 MG/TAB TAB.RAPDIS PO (23:56)
[2018-11-17] VITALS (13 sets, daily range): BP systolic 95–123; BP diastolic 41–61; PULSE 78–95; RESP 16–18; TEMP 36.6–36.9; O2SAT 91–99
--- NOTE | 2018-11-17 02:30 | NURSING ---
Minerva self given report and taking over care of pt at this time.
[2018-11-17 03:03] LABS: ALB/GLOB Ratio 0.9 RATIO (0.9-2.4); AST(SGOT) 106 U/L (15-37); Alanine Aminotransfer ALT/SGPT 43 U/L (13-56); Alkaline Phosphatase 119 U/L (45-117); Anion Gap 4 (5-15); BUN 21 mg/dL (7-18); Calcium,Total 8.5 mg/dL (8.5-10.1); Chloride 109 mmol/L (98-107); Cholesterol 112 mg/dL (200); EST Glomerular Filtration Rate 58 mL/min (>60); Est Glom Filt Rate - Afr Amer 70 mL/min (>60); Estimated Creatinine Clearance 42.68 ml/min; Globulin 3.2 g/dL (2.2-4.2); Glucose 121 mg/dL (74-106); High Density Lipoprotein 41 mg/dL; Potassium 4.1 mmol/L (3.5-5.1); Protein, Total 6.2 g/dL (6.4-8.2); Sodium Level 142 mmol/L (136-145); Thyroid Stim Hormone (TSH) 2.32 uIU/mL (0.358-3.74); Triglycerides 132 mg/dL; Very Low Density Lipoprotein 26 mg/dL (5-40)
[2018-11-17 03:12] LABS: Hemoglobin A1c 7.9 % (4.2-6.3)
[2018-11-17] MEDS: oxyCODONE 5 MG Tablet PO ×3 (05:54→21:47)
[2018-11-17] MEDS: Gabapentin 100 MG Capsule PO ×3 (05:55→21:50)
[2018-11-17] MEDS: Midodrine HCl 5 MG Tablet 10 MG PO ×3 (05:55→21:49)
--- NOTE | 2018-11-17 05:55 | ECHOD_ITS ---
Reason For Study: SYNCOPE Procedure This was a 2D Doppler, Color Flow transthoracic echocardiogram. Exam performed portable in patient room. Left Ventricle Normal LV size. Concentric left ventricular hypertrophy. The estimated ejection fraction is 75 %. Stage 2 diastolic dysfunction. No regional wall motion abnormalities noted. Right Ventricle Normal RV size. Normal systolic function. Atria Normal left atrium. Normal right atrium. No doppler evidence for ASD. Mitral Valve There is mild to moderate mitral annular calcification. There is no mitral valve stenosis. No mitral valve insufficiency. Tricuspid Valve There is no tricuspid stenosis. Trivial tricuspid valve insufficiency. Pulmonary artery systolic pressure is 35 mmHg. Aortic Valve Trisinus/trileaflet aortic valve. Mild diffuse aortic valve thickening. Mild aortic stenosis. No aortic valve insufficiency. Pulmonic Valve There is no pulmonic valvular stenosis. No pulmonic valve insufficiency. Great Vessels Normal aortic root. Pericardium/Pleural No pericardial effusion. MMode/2D Measurements & Calculations LVIDd: 3.5 cm IVSd: 1.2 cm LVOT diam: 1.7 cm LVIDs: 2.1 cm LVPWd: 0.91 cm LVOT area: 2.4 cm2 RVDd: 3.3 cm FS: 39.9 % Ao root diam: 3.0 cm LAV(MOD-bp): 50.8 ml Aortic Valve Planimetry: 1.9 cm2 LAV(MOD-bp) Indexed: 28.4 ml/m2 LAV(MOD-sp2): 49.3 ml LAV(MOD-sp4): 48.3 ml LA dimension(2D): 4.2 cm LA A4 area: 19.2 cm2 RA A4 area: 15.1 cm2 Time Measurements MV dec time: 0.36 sec Doppler Measurements & Calculations MV E max rubio: 122.2 cm/sec Lat Peak E' Rubio: 8.9 cm/sec Med Peak E' Rubio: 5.6 cm/sec MV A max rubio: 150.6 cm/sec E/E' lat: 13.7 E/E' med: 22.0 MV E/A: 0.81 MV V2 max: 153.7 cm/sec Ao V2 max: 159.5 cm/sec LV V1 max: 121.5 cm/sec MV max P.5 mmHg Ao max P.2 mmHg LV V1 max P.9 mmHg MV V2 mean: 105.9 cm/sec Ao V2 mean: 118.2 cm/sec LV V1 mean P.8 mmHg MV mean P.8 mmHg Ao mean P.1 mmHg LV V1 mean: 94.2 cm/sec MV V2 VTI: 45.0 cm Ao V2 VTI: 36.5 cm LV V1 VTI: 29.5 cm MVA(VTI): 1.5 cm2 GRANT(I,D): 1.9 cm2 GRANT(V,D): 1.8 cm2 SV(LVOT): 69.5 ml TR max rubio: 259.6 cm/sec MV P1/2t-pr_phl: 109.2 msec TR max P.1 mmHg Interpretation Summary The estimated ejection fraction is 75 %. Stage 2 diastolic dysfunction. Mild diffuse aortic valve thickening. Mild aortic stenosis. Ordering Physician: Augustin Burciaga Referring Physician: JESS HART Performed By: Maxine Patel RDCS, RVT
--- NOTE | 2018-11-17 06:40 | NURSING ---
called breakfast for patient.
[2018-11-17 06:55] LABS: Bedside Glucose 120 mg/dL (70-110)
[2018-11-17] MEDS: Budesonide Respules 0.5 MG/2 ML AMPUL.NEB. INHALATION ×2 (07:23→19:30)
[2018-11-17] MEDS: Albuterol 2.5 MG/3 ML VIAL.NEB. INHALATION ×2 (07:23→19:30)
[2018-11-17] MEDS: Calcium (Elemental) 500 MG Tablet PO ×2 (08:25→16:19)
[2018-11-17] MEDS: Aspirin 81 MG TAB.CHEW PO (08:25)
[2018-11-17] MEDS: Venlafaxine HCl 75 MG Tablet PO ×2 (08:25→21:44)
[2018-11-17] MEDS: Polyethylene Glycol 3350 17 GM PACKET PO (08:26)
[2018-11-17] MEDS: Pantoprazole Sodium 20 MG Tablet PO ×2 (08:26→21:49)
[2018-11-17] MEDS: Enoxaparin 40 MG/0.4 ML Syringe SC (08:26)
[2018-11-17] MEDS: 0.9% Normal Saline 1,000 ML 100 ML IV ×2 (08:29→18:30)
[2018-11-17] MEDS: Insulin Lispro 100 UNIT/ML INSULN.PEN SC ×2 (11:28→21:45)
[2018-11-17 11:36] LABS: Bedside Glucose 164 mg/dL (70-110)
--- NOTE | 2018-11-17 12:39 | PN_ITS ---
<Avelina Goodwin - Last Filed: 11/17/18 12:48> Patient Problems: Active and Suspected Problems Acute on recurrent syncope with collapse (Acute) Acute on recurrent fall (Acute) Subjective: Patient seen and examined. Drowsy during assessment. Patient reports she has had recurrent falls in the past month. Denies current complaints. - Physical Exam General: Alert, Oriented x3, Cooperative HEENT: Atraumatic, PERRLA, EOMI, Normocephalic Neck: Supple, No JVD, Negative Carotid Bruits Lungs: Clear to auscultation, Normal air movement Cardiovascular: Regular rate, Regular Rhythm, Normal S1, Normal S2, No murmurs Abdomen: Bowel Sounds Present, Soft, Non Tender, Non-Distended, Obese Extremities: No clubbing, No cyanosis, No edema, Capillary Refill Less than 3 Seconds Skin: No rashes, No breakdown Musculoskeletal: No Tenderness to Palpation of Joints or Extremities Neurological: Cranial nerves II-XII grossly intact, Neuro grossly intact Psych/Mental Status: Flat Affect Vital Signs Temp Pulse Resp BP Pulse Ox 97.8 F 85 16 112/54 L 99 11/17/18 11:00 11/17/18 11:00 11/17/18 11:00 11/17/18 11:00 11/17/18 11:00 Oxygen Delivery Method Room Air Weight: 167 lb 5.294 oz Body Mass Index (BMI) 29.6 Orthostatic Vital Signs Start: 11/16/18 22:57 Freq: q24h Status: Active Protocol: Activity Type Activity Date Activity User E-Sign Co-Sign Detail Recorded Client Recorded Date Recorded By Document 11/17/18 06:12 AMB [id number] 11/17/18 06:13 AMB 11/17/18 06:12 Orthostatic Vitals Standing -Blood Pressure (90/60-120/80) 96/41 L -Extremity Use Right Arm -Pulse Rate (60-100) 90 Sitting -Blood Pressure (90/60-120/80) 95/54 L -Extremity Use Right Arm -Pulse Rate (60-100) 95 Lying -Blood Pressure (90/60-120/80) 107/55 L -Extremity Use Right Arm -Pulse Rate (60-100) 79 Intake and Output for Last 24 Hours 11/15/18 11/16/18 11/17/18 23:59 23:59 23:59 Intake Total 606.25 / 966.25 2944 / 2944 Output Total 1650 / 1650 Balance 606.25 / 966.25 1294 / 1294 Laboratory Tests Past 24 Hrs 11/16/18 11/16/18 11/16/18 19:31 19:31 19:31 WBC 10.5 RBC 3.98 L Hgb 11.5 L Hct 36.4 L MCV 91.5 MCH 28.9 MCHC 31.6 L RDW Std Deviation 49.9 H RDW Coeff of Fadumo 15.0 H Plt Count 209 MPV 11.9 Immature Gran % (Auto) 0.400 Neut % (Auto) 54.2 Lymph % (Auto) 39.2 [place] % (Auto) 4.8 Eos % (Auto) 1.0 Baso % (Auto) 0.4 Absolute Neuts (auto) 5.7 Absolute Lymphs (auto) 4.10 Nucleated RBC % 0 Sodium 143 Potassium 4.2 Chloride 106 Carbon Dioxide 28.0 Anion Gap 9 BUN 25 H Creatinine 1.22 H Estim Creat Clear Calc 34.99 Est GFR (MDRD) Af Amer 56 L Est GFR (MDRD) Non-Af 46 L BUN/Creatinine Ratio 20.5 H Glucose 63 L Hemoglobin A1c Calcium 8.9 Magnesium 1.4 L Total Bilirubin AST ALT Alkaline Phosphatase Troponin I < 0.015 Total Protein Albumin Globulin Albumin/Globulin Ratio Triglycerides Cholesterol LDL Cholesterol VLDL Cholesterol HDL Cholesterol TSH Urine Color Urine Clarity Urine pH Ur Specific [place] Urine Protein Urine Glucose (UA) Urine Ketones Urine Occult Blood Urine Nitrite Urine Bilirubin Urine Urobilinogen Ur Leukocyte Esterase Urine RBC Urine WBC Ur Squamous Epith Cells Urine Bacteria Urine Mucus 11/16/18 11/16/18 11/17/18 20:26 22:50 01:45 WBC RBC Hgb Hct MCV MCH MCHC RDW Std Deviation RDW Coeff of Fadumo Plt Count MPV Immature Gran % (Auto) Neut % (Auto) Lymph % (Auto) [place] % (Auto) Eos % (Auto) Baso % (Auto) Absolute Neuts (auto) Absolute Lymphs (auto) Nucleated RBC % Sodium 142 Potassium 4.1 Chloride 109 H Carbon Dioxide 29.0 Anion Gap 4 L BUN 21 H Creatinine 1.00 Estim Creat Clear Calc 42.68 Est GFR (MDRD) Af Amer 70 Est GFR (MDRD) Non-Af 58 L BUN/Creatinine Ratio 21.0 H Glucose 121 H Hemoglobin A1c Calcium 8.5 Magnesium Total Bilirubin 0.20 AST 106 H ALT 43 Alkaline Phosphatase 119 H Troponin I < 0.015 Total Protein 6.2 L Albumin 3.0 L Globulin 3.2 Albumin/Globulin Ratio 0.9 Triglycerides 132 Cholesterol 112 LDL Cholesterol 45 VLDL Cholesterol 26 HDL Cholesterol 41 TSH 2.32 Urine Color Yellow Urine Clarity Sl. Cloudy Urine pH 8.0 Ur Specific Gilbert 1.010 Urine Protein 15 H Urine Glucose (UA) Normal Urine Ketones Negative Urine Occult Blood 25 H Urine Nitrite Positive H Urine Bilirubin Negative Urine Urobilinogen Normal Ur Leukocyte Esterase 500 H Urine RBC 0 SEEN Urine WBC >100 SEEN Ur Squamous Epith Cells 0-5 SEEN Urine Bacteria 4+ Urine Mucus 0 SEEN 11/17/18 11/17/18 01:45 01:45 WBC RBC Hgb Hct MCV MCH MCHC RDW Std Deviation RDW Coeff of Fadumo Plt Count MPV Immature Gran % (Auto) Neut % (Auto) Lymph % (Auto) [place] % (Auto) Eos % (Auto) Baso % (Auto) Absolute Neuts (auto) Absolute Lymphs (auto) Nucleated RBC % Sodium Potassium Chloride Carbon Dioxide Anion Gap BUN Creatinine Estim Creat Clear Calc Est GFR (MDRD) Af Amer Est GFR (MDRD) Non-Af BUN/Creatinine Ratio Glucose Hemoglobin A1c 7.9 H Calcium Magnesium Total Bilirubin AST ALT Alkaline Phosphatase Troponin I < 0.015 Total Protein Albumin Globulin Albumin/Globulin Ratio Triglycerides Cholesterol LDL Cholesterol VLDL Cholesterol HDL Cholesterol TSH Urine Color Urine Clarity Urine pH Ur Specific [place] Urine Protein Urine Glucose (UA) Urine Ketones Urine Occult Blood Urine Nitrite Urine Bilirubin Urine Urobilinogen Ur Leukocyte Esterase Urine RBC Urine WBC Ur Squamous Epith Cells Urine Bacteria Urine Mucus POC Glucose 11/17/18 11/17/18 11/16/18 11:26 06:50 23:15 POC Glucose 164 H 120 H 67 L Medical Necessity - Tobacco Use Smoking Status: Current every day smoker Tobacco Use: Cigarettes Assessment/Plan All Active Problems Acute on recurrent syncope with collapse (Acute) Acute on recurrent fall (Acute) 1. Syncope with collapse-troponin negative. Orthostatic vitals negative. Obtain echocardiogram. Fall precautions. Treat underlying UTI. PT/OT. 2. Recent history of falls- PT/OT. CM consult for DC planning. PT recommending further therapy. 3. Acute UTI-urinalysis with 4+ bacteria, positive nitrite. Urine culture pending. Continue IV Rocephin. 4. Type 2 diabetes [id number] ACHS with sliding scale insulin. Continue home insulin regimen. Hold metformin. 5. History of CVA-continue aspirin, statin. 6. History of DVT-no longer on anticoagulation. 7. PAD-continue aspirin, statin. 8. Dementia/anxiety/depression-continue memantine, clonazepam, Zyprexa and Effexor regimen. DVT prophylaxis-Lovenox subcu This patient was seen by REBA Ramos under the supervision of Dr. Trammell. <Alin Trammell - Last Filed: 11/17/18 13:00> - Physical Exam Vital Signs Temp Pulse Resp BP Pulse Ox 97.8 F 85 16 112/54 L 99 11/17/18 11:00 11/17/18 11:00 11/17/18 11:00 11/17/18 11:00 11/17/18 11:00 Oxygen Delivery Method Room Air Weight: 75.9 kg Body Mass Index (BMI) 29.6 Orthostatic Vital Signs Start: 11/16/18 22:57 Freq: q24h Status: Active Protocol: Activity Type Activity Date Activity User E-Sign Co-Sign Detail Recorded Client Recorded Date Recorded By Document 11/17/18 06:12 AMB [id number] 11/17/18 06:13 AMB 11/17/18 06:12 Orthostatic Vitals Standing -Blood Pressure (90/60-120/80) 96/41 L -Extremity Use Right Arm -Pulse Rate (60-100) 90 Sitting -Blood Pressure (90/60-120/80) 95/54 L -Extremity Use Right Arm -Pulse Rate (60-100) 95 Lying -Blood Pressure (90/60-120/80) 107/55 L -Extremity Use Right Arm -Pulse Rate (60-100) 79 Intake and Output for Last 24 Hours 11/15/18 11/16/18 11/17/18 23:59 23:59 23:59 Intake Total 606.25 / 966.25 2944 / 2944 Output Total 1650 / 1650 Balance 606.25 / 966.25 1294 / 1294 Microbiology Past 72 Hours 11/16/18 20:26 Urine Culture - Preliminary Urine Catheter - Catheter GNR lactose horse doctor Laboratory Tests Past 24 Hrs 11/16/18 11/16/18 11/16/18 19:31 19:31 19:31 WBC 10.5 RBC 3.98 L Hgb 11.5 L Hct 36.4 L MCV 91.5 MCH 28.9 MCHC 31.6 L RDW Std Deviation 49.9 H RDW Coeff of Fadumo 15.0 H Plt Count 209 MPV 11.9 Immature Gran % (Auto) 0.400 Neut % (Auto) 54.2 Lymph % (Auto) 39.2 [place] % (Auto) 4.8 Eos % (Auto) 1.0 Baso % (Auto) 0.4 Absolute Neuts (auto) 5.7 Absolute Lymphs (auto) 4.10 Nucleated RBC % 0 Sodium 143 Potassium 4.2 Chloride 106 Carbon Dioxide 28.0 Anion Gap 9 BUN 25 H Creatinine 1.22 H Estim Creat Clear Calc 34.99 Est GFR (MDRD) Af Amer 56 L Est GFR (MDRD) Non-Af 46 L BUN/Creatinine Ratio 20.5 H Glucose 63 L Hemoglobin A1c Calcium 8.9 Magnesium 1.4 L Total Bilirubin AST ALT Alkaline Phosphatase Troponin I < 0.015 Total Protein Albumin Globulin Albumin/Globulin Ratio Triglycerides Cholesterol LDL Cholesterol VLDL Cholesterol HDL Cholesterol TSH Urine Color Urine Clarity Urine pH Ur Specific [place] Urine Protein Urine Glucose (UA) Urine Ketones Urine Occult Blood Urine Nitrite Urine Bilirubin Urine Urobilinogen Ur Leukocyte Esterase Urine RBC Urine WBC Ur Squamous Epith Cells Urine Bacteria Urine Mucus 11/16/18 11/16/18 11/17/18 20:26 22:50 01:45 WBC RBC Hgb Hct MCV MCH MCHC RDW Std Deviation RDW Coeff of Fadumo Plt Count MPV Immature Gran % (Auto) Neut % (Auto) Lymph % (Auto) [place] % (Auto) Eos % (Auto) Baso % (Auto) Absolute Neuts (auto) Absolute Lymphs (auto) Nucleated RBC % Sodium 142 Potassium 4.1 Chloride 109 H Carbon Dioxide 29.0 Anion Gap 4 L BUN 21 H Creatinine 1.00 Estim Creat Clear Calc 42.68 Est GFR (MDRD) Af Amer 70 Est GFR (MDRD) Non-Af 58 L BUN/Creatinine Ratio 21.0 H Glucose 121 H Hemoglobin A1c Calcium 8.5 Magnesium Total Bilirubin 0.20 AST 106 H ALT 43 Alkaline Phosphatase 119 H Troponin I < 0.015 Total Protein 6.2 L Albumin 3.0 L Globulin 3.2 Albumin/Globulin Ratio 0.9 Triglycerides 132 Cholesterol 112 LDL Cholesterol 45 VLDL Cholesterol 26 HDL Cholesterol 41 TSH 2.32 Urine Color Yellow Urine Clarity Sl. Cloudy Urine pH 8.0 Ur Specific Gilbert 1.010 Urine Protein 15 H Urine Glucose (UA) Normal Urine Ketones Negative Urine Occult Blood 25 H Urine Nitrite Positive H Urine Bilirubin Negative Urine Urobilinogen Normal Ur Leukocyte Esterase 500 H Urine RBC 0 SEEN Urine WBC >100 SEEN Ur Squamous Epith Cells 0-5 SEEN Urine Bacteria 4+ Urine Mucus 0 SEEN 11/17/18 11/17/18 01:45 01:45 WBC RBC Hgb Hct MCV MCH MCHC RDW Std Deviation RDW Coeff of Fadumo Plt Count MPV Immature Gran % (Auto) Neut % (Auto) Lymph % (Auto) [place] % (Auto) Eos % (Auto) Baso % (Auto) Absolute Neuts (auto) Absolute Lymphs (auto) Nucleated RBC % Sodium Potassium Chloride Carbon Dioxide Anion Gap BUN Creatinine Estim Creat Clear Calc Est GFR (MDRD) Af Amer Est GFR (MDRD) Non-Af BUN/Creatinine Ratio Glucose Hemoglobin A1c 7.9 H Calcium Magnesium Total Bilirubin AST ALT Alkaline Phosphatase Troponin I < 0.015 Total Protein Albumin Globulin Albumin/Globulin Ratio Triglycerides Cholesterol LDL Cholesterol VLDL Cholesterol HDL Cholesterol TSH Urine Color Urine Clarity Urine pH Ur Specific [place] Urine Protein Urine Glucose (UA) Urine Ketones Urine Occult Blood Urine Nitrite Urine Bilirubin Urine Urobilinogen Ur Leukocyte Esterase Urine RBC Urine WBC Ur Squamous Epith Cells Urine Bacteria Urine Mucus POC Glucose 11/17/18 11/17/18 11/16/18 11:26 06:50 23:15 POC Glucose 164 H 120 H 67 L Assessment/Plan This patient was seen in conjunction with REBA Ramos . I have independently interviewed and examined the patient and reviewed pertinent h istorical, laboratory, and other data. Please refer to REBA Ramos note for details of this patient's presentation, findings, and recommendations. I have reviewed REBA Ramos note and concur with documented findings. In brief, patient is a 73-year-old female admitted following syncopal episode Physical Examination: GENERAL: cooperative HEENT: Atraumatic; EYES; Anicteric, Normal Conjunctiva NECK; supple, normal thyroid, RESPIRATORY: Diminished to auscultation CARDIOVASCULAR: Regular S1 S2, GI: soft, non-tender, normoactive bowel sounds, SKIN: No Rash PSYCH; flat affect Assessment: Syncopal episode 2. Positive orthostatics 3. Acute cystitis 4. Physical deconditioning with recurrent falls 5. Diabetes mellitus type 2 6. Previous history of DVT completed anticoagulation treatment 7. History of CVA 8. Peripheral arterial disease 9. Dementia 10. Depression with anxiety Recommendations: 1. I have discussed the results of my overview and impressions with the patient 2. Options for management were reviewed Code Visit Inpatient E&M: 91437 Subs Hosp L3
[2018-11-17 17:20] LABS: Bedside Glucose 137 mg/dL (70-110)
[2018-11-17] MEDS: Ceftriaxone 1 GM/50 ML BAG IV (21:42)
[2018-11-17] MEDS: Rosuvastatin 20 MG Tablet PO (21:44)
[2018-11-17 22:01] LABS: Bedside Glucose 179 mg/dL (70-110)
[2018-11-18] VITALS (7 sets, daily range): BP systolic 117–154; BP diastolic 56–75; PULSE 57–86; RESP 18; TEMP 36.6–36.9; O2SAT 94–96
--- NOTE | 2018-11-18 01:18 | NURSING ---
Report given to Zac DOUGLASS at this time, he took over care of pt at this time.
[2018-11-18] MEDS: 0.9% Normal Saline 1,000 ML 100 ML IV (03:47)
[2018-11-18] MEDS: oxyCODONE 5 MG Tablet PO ×2 (03:58→08:30)
[2018-11-18] MEDS: 0.9% NaCl Peripheral Flush Adult/Peds IV (04:26)
[2018-11-18 05:15] LABS: Absolute Lymphocyte Count 3.63 X10^3/uL (0.83-4.51); Absolute Neutrophil Count 3.5 X10^3/uL (2.0-7.7); Basophil# 0.05 X10^3/uL; Basophil% 0.6 % (0-1); Eosinophil# 0.14 X10^3/uL; Eosinophils% 1.8 % (0-5); Hematocrit 34.8 % (37-47); Hemoglobin 10.7 g/dL (12.0-15.0); Lymphocyte # 3.63 X10^3/ul (4.0); Lymphocyte % 46.4 % (19-41); Mean Corp Hgb Conc 30.7 g/dL (32-36); Mean Corpuscular Hgb 28.5 pg (27.0-32.0); Mean Corpuscular Volume 92.6 fL (81-99); Mean Platelet Vol. 11.2 fl (6.2-12.0); Monocyte# 0.52 X10^3/uL; Monocyte% 6.6 % (0-10); NRBC Flagged by Analyzer 0 % (0-5); Neutrophil # 3.46 X10^3/uL (2.7-7.7); Neutrophil % 44.3 % (47-70); Platelet Count 230 K/mm3 (150-450); RBC Distribution Width CV 15.4 % (11.6-14.6); RBC Distribution Width SD 52.1 fl (35.1-43.9); Red Blood Count 3.76 M/mm3 (4.2-5.4); White Blood Count 7.8 K/mm3 (4.4-11.0)
[2018-11-18 05:31] LABS: Anion Gap 6 (5-15); BUN 20 mg/dL (7-18); BUN/Creat Ratio 21.7 RATIO (10-20); Calcium,Total 8.3 mg/dL (8.5-10.1); Chloride 111 mmol/L (98-107); Creatinine, Serum 0.92 mg/dL (0.55-1.02); EST Glomerular Filtration Rate 64 mL/min (>60); Est Glom Filt Rate - Afr Amer 77 mL/min (>60); Glucose 159 mg/dL (74-106); Magnesium 1.4 mg/dL (1.6-2.6); Potassium 4.5 mmol/L (3.5-5.1); Sodium Level 144 mmol/L (136-145)
[2018-11-18] MEDS: Midodrine HCl 5 MG Tablet 10 MG PO (06:01)
[2018-11-18] MEDS: Gabapentin 100 MG Capsule PO (06:01)
[2018-11-18] MEDS: Insulin Lispro 100 UNIT/ML INSULN.PEN SC ×2 (06:39→11:27)
[2018-11-18 06:45] LABS: Bedside Glucose 164 mg/dL (70-110)
[2018-11-18] MEDS: Budesonide Respules 0.5 MG/2 ML AMPUL.NEB. INHALATION (06:57)
[2018-11-18] MEDS: Albuterol 2.5 MG/3 ML VIAL.NEB. INHALATION (06:57)
[2018-11-18] MEDS: Enoxaparin 40 MG/0.4 ML Syringe SC (08:17)
[2018-11-18] MEDS: Venlafaxine HCl 75 MG Tablet PO (08:17)
[2018-11-18] MEDS: Calcium (Elemental) 500 MG Tablet PO (08:17)
[2018-11-18] MEDS: Pantoprazole Sodium 20 MG Tablet PO (08:17)
[2018-11-18] MEDS: Aspirin 81 MG TAB.CHEW PO (08:18)
[2018-11-18] MEDS: Polyethylene Glycol 3350 17 GM PACKET PO (08:18)
--- NOTE | 2018-11-18 10:04 | CASEMGMT ---
BRAYAN called [facility] and spoke with Diane on the coverage line. Patient is active with [employer]. Her Auto Design Detailer is Mya Das. She has [facility] for her aides. They come daily for 2 hours a day. They also come M,W, and F for an hour to help her get ready for daycare. She goes to [facility] M,W, and F. She also has a life alert button. BRAYAN notified Diane that patient will likely be discharged today. Daly ARCHULETA MSW
--- NOTE | 2018-11-18 10:34 | CASEMGMT ---
RAFAT HIGGINBOTHAM NOTE: To room to meet with pt. Pt sitting up in recliner chair. Awake/alert/oriented. Introduced self and role of RAFAT HIGGINBOTHAM. Reviewed [facility] form with pt. Form signed by pt, copy made and placed on chart, and original given to pt. She denies having any questions. PT/OT evals have been reviewed and further therapy has been recommended. To room to talk with pt. Pt states she has been to [facility] in the past for OP therapy and wishes to go there again. Script obtained from ROSA Ramos, and given to pt. She states she does not want RAFAT HIGGINBOTHAM to fax it to [facility]. She states she wishes to take the script in to [facility] on her own and make the appts. She plans to get transportation to [facility] through [employer]. Pt denies having any further questions/concerns/needs. Pt made aware to ask for RAFAT HIGGINBOTHAM if she has any questions or concerns w/discharge. She voices understanding. Emilia ESQUEDA RN, CM
--- NOTE | 2018-11-18 10:55 | DCINST_ITS ---
- Discharge Diagnoses Current Active Problems: Current Active and Chronic Problems Acute on recurrent syncope with collapse (Acute) Acute UTI You will use the following diet at home:: Calorie/Carbohydrate Controlled (specify 1200, 1400, etc), Cardiac Discharge Activity: Return to Normal Activity Call your doctor if you observe: Dizziness, Fainting spells, Chest pain Allergies/Adverse Reactions: Allergies atorvastatin calcium [From Lipitor] Allergy (Verified 11/16/18 19:05) Unknown calcium Allergy (Verified 11/16/18 19:05) Unknown ibuprofen [From Motrin] Allergy (Verified 11/16/18 19:05) Unknown Medications to take at Discharge Aspirin [Aspirin, Baby] 81 mg PO DAILY@0800 03/09/13 Gabapentin [Neurontin] 100 mg PO TID 03/09/13 Metformin HCl [Glucophage] 1,000 mg PO BID 03/09/13 Pioglitazone [Actos] 45 mg PO DAILY 03/09/13 Clonazepam 0.5 mg PO BID PRN PRN 10/19/13 Omeprazole [Prilosec] 20 mg PO BID 10/19/13 Venlafaxine HCl [Effexor] 75 mg PO BID 10/19/13 Albuterol Inhaler [Ventolin Hfa] 1 puff INHALATION Q4H PRN PRN 01/03/14 Olanzapine [Zyprexa] 5 mg PO QHS 01/03/14 Insulin Glargine [Lantus SoloStar Pen] 65 units SC BID 05/15/14 Cholecalciferol (VIT D3) [Vitamin D3] 1,000 mg PO DAILY 01/06/17 Midodrine HCl [Proamatine] 10 mg PO TID 01/06/17 Rosuvastatin Calcium [Crestor] 20 mg PO QHS 01/06/17 Calcium Carbonate 500 mg PO BID 11/16/18 Fluticasone/Salmeterol [Advair 250/50 Mcg Diskus] 1 puff INHALATION BID 11/16/18 Hydrocortisone 2.5% Crm [Hytone] 1 applic TOPICAL BID 11/16/18 Insulin Lispro [Humalog KwikPen] 6 unit SQ TIDCM 11/16/18 Memantine HCl 5 mg PO BID 11/16/18 Acetaminophen [Tylenol Extra Strength] 1,000 mg PO Q8H PRN PRN #20 tab 11/18/18 Cefadroxil [Duricef] 500 mg PO BID #10 cap 11/18/18 The following prescriptions were given: Cefadroxil [Duricef] 500 mg PO BID #10 cap Transmission Status: Pending to [id number] Acetaminophen [Tylenol Extra Strength] 1,000 mg PO Q8H PRN PRN #20 tab PRN Reason: Pain Transmission Status: Pending to [id number] Primary Care Physician: Jh Hewitt MD [Primary Care Provider] - Please follow up with your Primary Care Physician in: 1 Week Test Results: Test results from this visit will be discussed in further detail at your follow- up appointment, if applicable. Proposed Discharge Date: 11/18/18
--- NOTE | 2018-11-18 10:57 | DS.PCM_ITS ---
<Avelina Goodwin - Last Filed: 11/18/18 11:05> Discharge Date and Diagnosis Date of Admission: 11/16/18 Date of Discharge: 11/18/18 - Primary Discharge Diagnosis Active and Suspected Problems 1. Syncope with collapse, suspect secondary to orthostasis 2. Recent history of falls 3. Acute GNR UTI 4. Type 2 diabetes mellitus 5. History of CVA 6. History of DVT 7. PAD 8. Dementia/anxiety/depression - Secondary Discharge Diagnosis Chronic Problems Peripheral vascular disease (Chronic) History of DVT (deep vein thrombosis) (Chronic) 1982 basal ganglion bleed, history of (Chronic) Hyperlipidemia (Chronic) Type 2 diabetes mellitus (Chronic) History of CVA (cerebrovascular accident) (Chronic) Anxiety disorder (Chronic) Hospital Course and Treatment Imaging Results: Diagnostic Data Brain CT 11/16/18 19:57 IMPRESSION: Normal unenhanced CT scan of the brain. Electronically Signed: Mick Padron MD at 21:00 EDT , Service support , Hip/Pelvis X-Ray 11/16/18 19:58 IMPRESSION: No definite fractures or dislocations. Electronically Signed: Mick Padron MD at 21:01 EDT , Service support , Operations: None Procedures: 2-D Echocardiogram Summary of Care Provided: The patient is a 73 year old F admitted 11/16/2017 due to syncope with fall and collapse. 1. Syncope with collapse-suspect secondary to orthostasis. Complicated by underlying UTI. Troponin negative. Initially positive, repeat negative following fluids. Echocardiogram demonstrated an EF of 75%, stage II diastolic dysfunction, mild aortic stenosis. No arrhythmias on telemetry. Follow-up with primary care provider in 1 week. 2. Recent history of falls- Home PT at discharge. Patient previously has home health aide. 3. Acute GNR UTI-urinalysis with 4+ bacteria, positive nitrite. Urine culture preliminary GNR. Final culture pending. IV Rocephin during admission. Discharge on Duricef 500 mg twice daily for 5 days. 4. Type 2 diabetes mellitus-continue home oral and insulin regimen. 5. History of CVA-continue aspirin, statin. 6. History of DVT-no longer on anticoagulation. 7. PAD-continue aspirin, statin. 8. Dementia/anxiety/depression-continue memantine, clonazepam, Zyprexa and Effexor regimen. General: Alert, Oriented x3, Cooperative HEENT: Atraumatic, PERRLA, EOMI, Normocephalic Neck: Supple, No JVD, Negative Carotid Bruits Lungs: Clear to auscultation, Normal air movement Cardiovascular: Regular rate, Regular Rhythm, Normal S1, Normal S2, No murmurs Abdomen: Bowel Sounds Present, Soft, Non Tender, Non-Distended, Obese Extremities: No clubbing, No cyanosis, No edema, Capillary Refill Less than 3 Seconds Skin: No rashes, No breakdown Musculoskeletal: No Tenderness to Palpation of Joints or Extremities Neurological: Cranial nerves II-XII grossly intact, Neuro grossly intact Psych/Mental Status: Normal Affect, appropriate Patient seen and examined prior to discharge. Physical assessment as noted above. Patient is stable for discharge with follow up recommendations as noted above. This patient was seen by REBA Ramos under the supervision of Dr. Trammell. - Physical Exam Vital Signs Temp Pulse Resp BP Pulse Ox 97.8 F 57 L 18 138/68 H 96 11/18/18 08:14 11/18/18 08:14 11/18/18 08:14 11/18/18 08:14 11/18/18 08:14 Oxygen Delivery Method Room Air Weight: 167 lb 5.294 oz Body Mass Index (BMI) 29.6 Orthostatic Vital Signs Start: 11/16/18 22:57 Freq: q24h Status: Active Protocol: Activity Type Activity Date Activity User E-Sign Co-Sign Detail Recorded Client Recorded Date Recorded By Document 11/18/18 05:46 [facility] [id number] 11/18/18 05:55 CMS 11/18/18 05:46 Orthostatic Vitals Standing -Blood Pressure (90/60-120/80) 154/73 H -Extremity Use Left Arm Sitting -Blood Pressure (90/60-120/80) 152/75 H -Extremity Use Left Arm -Pulse Rate (60-100) 77 Lying -Blood Pressure (90/60-120/80) 143/71 H -Extremity Use Left Arm -Pulse Rate (60-100) 74 Intake and Output for Last 24 Hours 11/16/18 11/17/18 11/18/18 23:59 23:59 23:59 Intake Total 606.25 / 966.25 4895.67 / 4895.67 986.67 / 986.67 Output Total 1650 / 1650 Balance 606.25 / 966.25 3245.67 / 3245.67 986.67 / 986.67 Microbiology Past 72 Hours 11/16/18 20:26 Urine Culture - Final Urine Catheter - Catheter Klebsiella pneumoniae sp pneum Laboratory Tests Past 24 Hrs 11/18/18 11/18/18 04:48 04:48 WBC 7.8 RBC 3.76 L Hgb 10.7 L Hct 34.8 L MCV 92.6 MCH 28.5 MCHC 30.7 L RDW Std Deviation 52.1 H RDW Coeff of Fadumo 15.4 H Plt Count 230 MPV 11.2 Immature Gran % (Auto) 0.300 Neut % (Auto) 44.3 L Lymph % (Auto) 46.4 H Frontier % (Auto) 6.6 Eos % (Auto) 1.8 Baso % (Auto) 0.6 Absolute Neuts (auto) 3.5 Absolute Lymphs (auto) 3.63 Nucleated RBC % 0 Sodium 144 Potassium 4.5 Chloride 111 H Carbon Dioxide 27.0 Anion Gap 6 BUN 20 H Creatinine 0.92 Estim Creat Clear Calc 46.40 Est GFR (MDRD) Af Amer 77 Est GFR (MDRD) Non-Af 64 BUN/Creatinine Ratio 21.7 H Glucose 159 H Calcium 8.3 L Magnesium 1.4 L POC Glucose 11/18/18 11/17/18 11/17/18 06:37 21:34 16:18 POC Glucose 164 H 179 H 137 H 11/17/18 11:26 POC Glucose 164 H Discharge Diet: Low fat/ Low Cholesterol, Carb Control Diet Discharge Activity: Return to Normal Activity Call your doctor if you observe: Dizziness, Fainting spells, Chest pain Home Medications: Medications to take at Discharge Aspirin [Aspirin, Baby] 81 mg PO DAILY@0800 03/09/13 Gabapentin [Neurontin] 100 mg PO TID 03/09/13 Metformin HCl [Glucophage] 1,000 mg PO BID 03/09/13 Pioglitazone [Actos] 45 mg PO DAILY 03/09/13 Clonazepam 0.5 mg PO BID PRN PRN 10/19/13 Omeprazole [Prilosec] 20 mg PO BID 10/19/13 Venlafaxine HCl [Effexor] 75 mg PO BID 10/19/13 Albuterol Inhaler [Ventolin Hfa] 1 puff INHALATION Q4H PRN PRN 01/03/14 Olanzapine [Zyprexa] 5 mg PO QHS 01/03/14 Insulin Glargine [Lantus SoloStar Pen] 65 units SC BID 05/15/14 Cholecalciferol (VIT D3) [Vitamin D3] 1,000 mg PO DAILY 01/06/17 Midodrine HCl [Proamatine] 10 mg PO TID 01/06/17 Rosuvastatin Calcium [Crestor] 20 mg PO QHS 01/06/17 Calcium Carbonate 500 mg PO BID 11/16/18 Fluticasone/Salmeterol [Advair 250/50 Mcg Diskus] 1 puff INHALATION BID 11/16/18 Hydrocortisone 2.5% Crm [Hytone] 1 applic TOPICAL BID 11/16/18 Insulin Lispro [Humalog KwikPen] 6 unit SQ TIDCM 11/16/18 Memantine HCl 5 mg PO BID 11/16/18 Acetaminophen [Tylenol Extra Strength] 1,000 mg PO Q8H PRN PRN #20 tab 11/18/18 Cefadroxil [Duricef] 500 mg PO BID #10 cap 11/18/18 Following Prescrptions Were Given to Patient: Cefadroxil [Duricef] 500 mg PO BID #10 cap Transmission Status: Received by [facility] #[id number] Acetaminophen [Tylenol Extra Strength] 1,000 mg PO Q8H PRN PRN #20 tab PRN Reason: Pain Transmission Status: Received by [id number] Primary Care Physician: Jh Hewitt MD [Primary Care Provider] - Please follow up with your Primary Care Physician in: 1 Week Disposition: Home Minutes spent on discharge:: 35 Patient Condition:: Stable Medical Necessity - Tobacco Use Smoking Status: Current every day smoker Tobacco Use: Cigarettes Meaningful Use Info Meaningful Use Diagnoses (Choose all that apply): None applicable <Alin Trammell - Last Filed: 11/18/18 11:15> Discharge Date and Diagnosis - Secondary Discharge Diagnosis Chronic Problems Peripheral vascular disease (Chronic) History of DVT (deep vein thrombosis) (Chronic) 1982 basal ganglion bleed, history of (Chronic) Hyperlipidemia (Chronic) Type 2 diabetes mellitus (Chronic) History of CVA (cerebrovascular accident) (Chronic) Anxiety disorder (Chronic) Hospital Course and Treatment Summary of Care Provided: This patient was seen in conjunction with REBA Ramos . I have independently interviewed and examined the patient and reviewed pertinent historical, laboratory, and other data. Please refer to REBA Ramos note for details of this patient's presentation, findings, and recommendations. I have reviewed REBA Ramos note and concur with documented findings. In brief, patient is a 73-year-old female admitted following syncopal episode Assessment: Syncopal episode 2. Positive orthostatics 3. Acute cystitis 4. Physical deconditioning with recurrent falls 5. Diabetes mellitus type 2 6. Previous history of DVT completed anticoagulation treatment 7. History of CVA 8. Peripheral arterial disease 9. Dementia 10. Depression with anxiety Hospital course; as documented above - Physical Exam Vital Signs Temp Pulse Resp BP Pulse Ox 97.8 F 57 L 18 138/68 H 96 11/18/18 08:14 11/18/18 08:14 11/18/18 08:14 11/18/18 08:14 11/18/18 08:14 Oxygen Delivery Method Room Air Weight: 75.9 kg Body Mass Index (BMI) 29.6 Orthostatic Vital Signs Start: 11/16/18 22:57 Freq: q24h Status: Active Protocol: Activity Type Activity Date Activity User E-Sign Co-Sign Detail Recorded Client Recorded Date Recorded By Document 11/18/18 05:46 [facility] [id number] 11/18/18 05:55 [facility] 11/18/18 05:46 Orthostatic Vitals Standing -Blood Pressure (90/60-120/80) 154/73 H -Extremity Use Left Arm Sitting -Blood Pressure (90/60-120/80) 152/75 H -Extremity Use Left Arm -Pulse Rate (60-100) 77 Lying -Blood Pressure (90/60-120/80) 143/71 H -Extremity Use Left Arm -Pulse Rate (60-100) 74 Intake and Output for Last 24 Hours 11/16/18 11/17/18 11/18/18 23:59 23:59 23:59 Intake Total 606.25 / 966.25 4895.67 / 4895.67 2434.00 / 2434.00 Output Total 1650 / 1650 Balance 606.25 / 966.25 3245.67 / 3245.67 2434.00 / 2434.00 Microbiology Past 72 Hours 11/16/18 20:26 Urine Culture - Final Urine Catheter - Catheter Klebsiella pneumoniae sp pneum Laboratory Tests Past 24 Hrs 11/18/18 11/18/18 04:48 04:48 WBC 7.8 RBC 3.76 L Hgb 10.7 L Hct 34.8 L MCV 92.6 MCH 28.5 MCHC 30.7 L RDW Std Deviation 52.1 H RDW Coeff of Fadumo 15.4 H Plt Count 230 MPV 11.2 Immature Gran % (Auto) 0.300 Neut % (Auto) 44.3 L Lymph % (Auto) 46.4 H Frontier % (Auto) 6.6 Eos % (Auto) 1.8 Baso % (Auto) 0.6 Absolute Neuts (auto) 3.5 Absolute Lymphs (auto) 3.63 Nucleated RBC % 0 Sodium 144 Potassium 4.5 Chloride 111 H Carbon Dioxide 27.0 Anion Gap 6 BUN 20 H Creatinine 0.92 Estim Creat Clear Calc 46.40 Est GFR (MDRD) Af Amer 77 Est GFR (MDRD) Non-Af 64 BUN/Creatinine Ratio 21.7 H Glucose 159 H Calcium 8.3 L Magnesium 1.4 L POC Glucose 11/18/18 11/18/18 11/17/18 11:07 06:37 21:34 POC Glucose 247 H 164 H 179 H 11/17/18 11/17/18 16:18 11:26 POC Glucose 137 H 164 H Code Visit Inpatient E&M: 87394 Disch Hosp
[2018-11-18 11:10] LABS: Bedside Glucose 247 mg/dL (70-110)
== END 2018-11-18 10:50 | disposition home or self-care (01) ==
LOC: ED 19:48 → PCU 21:49
PROVIDERS: Admitting Provider Internal Medicine; Emergency Provider Emergency Medicine; Family Provider Internal Medicine; PCP Internal Medicine; Referring Provider Internal Medicine; Visit Provider Internal Medicine
DX: R55 Syncope and collapse (principal); N30.00 Acute cystitis without hematuria; B96.89 Other specified bacterial agents as the cause of diseases classified elsewhere; S70.01XA Contusion of right hip, initial encounter; F03.90 Unspecified dementia, unspecified severity, without behavioral disturbance, psychotic disturbance, mood disturbance, and anxiety; E11.51 Type 2 diabetes mellitus with diabetic peripheral angiopathy without gangrene; W18.39XA Other fall on same level, initial encounter; F17.210 Nicotine dependence, cigarettes, uncomplicated; E78.5 Hyperlipidemia, unspecified; F41.8 Other specified anxiety disorders; Z91.81 History of falling; Y93.01 Activity, walking, marching and hiking; Y92.9 Unspecified place or not applicable; Z79.899 Other long term (current) drug therapy; Z86.73 Personal history of transient ischemic attack (TIA), and cerebral infarction without residual deficits; Z79.82 Long term (current) use of aspirin; Z86.718 Personal history of other venous thrombosis and embolism; Z79.4 Long term (current) use of insulin
CPT/HCPCS: 36415; 70450; 73502; 80048; 80053; 80061; 81001; 82962; 83036; 83735; 84443; 84484; 85025; 87077; 87086; 87088; 87186; 93005; 93306; 94640; 96361; 96365; 96366; 96372; 96375; 96376; 97116; 97162; 97166; 97530; 99218; 99285; J7030; J7040; A4216; G0378; J2405

== ENCOUNTER 2019-01-17 09:30 | Outpatient (RCR) | payer MEDICARE, SELFPAY ==
--- NOTE | 2018-12-21 12:42 | HP.PTEVAL ---
Patient's Visit Information PETE SCHUMACHER is a 73 year old F referred to Physical Therapy by REBA Ramos with a diagnosis of Falls. Date of Evaluation: 12/21/18 Physical Therapist: Blanka Rowe DPT - Visit Plan Frequency: 2x /Week Duration: 4 Weeks Plan: Aquatic Therapy- focus on LE and core strength/stabilization- Balance - Subjective Findings: Patient reports fell at home Nov 16, 2018 at home. Winifred picked up her and called 911. Spent some days in [place] and took x-rays of the right hip which was not broken. Then went home and picked up a bug-and was down for the count for a little bit. 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 No radiating- describes the pain as sharp/shooting. Current: 09/17. Went to PCP who told her that she was having muscle spasms from the fall. Is a fall risk- but this has been the worst- does use a rollerator all the time. Worst: 11/17 Agg: if she is up doing something Eases: sitting down Best: 08/17. No back pain- had water therapy for her back and injections which now has made her back good- summer 2018. Wants to do water therapy for her right leg. Winifred lives with her and has an aide that comes daily with the housework- single story home with no stairs to enter- no problems getting in/out. Does not drive. No N/T in the LE but does have neuropathy from DM. Sleep is distrurbed. Reports that she normally falls sideways- Has fallen 3x this year- was diagnosed with Alzhiemers and the meds were counter acting her BP meds- so they have adjusted that and has not fallen siince. PMHx/Meds:only change is added Magnesium since admission. - Objective Posture: Fh, RS, increased kyphosis- can correct with tactile cues but does not maintain. Stairs: non recip with 2 HR and SBA. Gait: antalgic- rollerator- decreased stance on the right LE with slow candence. HR/TR: able with bilateral UE A and reports pain in the right hip. SLS: WS but unable to SLS without UE A. ROM: lumbar: flexion: hands to mid thigh, extn: unable, SB/Rot: decreasedby 75% with pain, Right Hip: flexion: 90 degrees, Abd: WFL, IR/ER: limited by 50% with pain, Extn: neutral with pain, Knee: WFL, Ankle: WFL. Strength: poor testing ability and reports 10/10 pain. Core: poor, Hip: 3-/5 throughout, Knee: 3+/5, Ankle: 4/5. Flex: HS: severe, Gastroc: moderate. No balance testing performed due to extreme pain- will attempe to use pool as modality to decrease pain and increase tolerance. - Goals Goal 1:: Patient will be I with HEP and progression Goal Time Frame: 4-6 Weeks Goal 2:: Patient will asc/desc 8 stairs recip with 2 HR Goal Time Frame: 4-6 Weeks Goal 3:: Patient will demo 4/5 strength in right hip Goal Time Frame: 4-6 Weeks Goal 4:: Patient will report 5/10 hip pain for 1 week Goal Time Frame: 4-6 Weeks - Rehabilitation Potential Physical Therapy Diagnosis: Patient presents with right hip pain and hypomobility- she has decreased ROM, strength, flex and muscular endurance leading to increased pain with ADL's. Rehabilitation Potential: Fair - Anticipated Interventions Patient/Client Instruction: Educate patient on: Benefits of Fitness Program Therapeutic Exercise to Include: Strength training, Endurance training, Balance training, Body mechanics, Postural training, Flexibilty training, Gait and locomotor training, In an aquatic setting, Dynamic Lumbar Stabilization For the Purpose of:: To improve muscle performance and motor function Thank you for the opportunity to evaluate your patient. For Medicare and Medicare HMO plans, please review the plan of care and approve it. It will need to be FAXED BACK to us at [phone] for Medicare purposes. For Medicare only, by signing this I certify the plan of care. Please let me know if there are questions or concerns regarding this plan of care. Physician Signature: Date:
== END 2019-01-17 19:00 | disposition home or self-care (01) ==
LOC: PT 09:30
PROVIDERS: Family Provider Internal Medicine; PCP Internal Medicine; Visit Provider Internal Medicine
DX: R29.6 Repeated falls (principal); M62.81 Muscle weakness (generalized); R26.89 Other abnormalities of gait and mobility
CPT/HCPCS: 97113; 97161

== ENCOUNTER 2019-11-15 10:00 | Inpatient (IN) | payer MEDICARE, SELFPAY ==
[2019-11-15] VITALS (31 sets, daily range): BP systolic 117–209; BP diastolic 43–116; PULSE 88–124; RESP 14–147; TEMP 36.6–37.9; O2SAT 90–100; BMI 30.9; BMI 29.2
--- NOTE | 2019-11-15 10:01 | EKG12_ITS ---
Test Reason : STROKE Blood Pressure : / mmHG Vent. Rate : 124 BPM Atrial Rate : 124 BPM P-R Int : 148 ms QRS Dur : 082 ms QT Int : 322 ms P-R-T Axes : 080 049 078 degrees QTc Int : 462 ms Sinus tachycardia with Premature atrial complexes Low voltage QRS Borderline ECG Confirmed by CHIN FELICIANO, CONSUELO ([id number]), film editor supervisor AUDELIA PRASAD ([id number]) on 11/16/2019 10:04:48 AM Referred By: LEONELA Confirmed By:CONSUELO NEELY MD
--- NOTE | 2019-11-15 10:01 | CT_ITS ---
We are attempting to reach an attending provider to discuss findings. An addendum with communication details will be sent when the communication is complete. STUDY: CT BRAIN WITHOUT CONTRAST REASON FOR EXAM: Female, 74 years old. STROKE RADIATION DOSAGE (If Supplied By Facility): CTDIvol = ( 44.99 ) mGy, DLP = ( 765.18 ) mGycm TECHNIQUE: Transaxial CT imaging of the brain was performed without administration of intravenous contrast material. Individualized dose optimization techniques were used for this CT. COMPARISON: No relevant priors. FINDINGS: Normal soft tissue structures. Normal calvarium. Normal size ventricles and extra-axial spaces for the patient''s age. Normal white matter tracts of the cerebral hemispheres. Normal basal ganglia and thalami. Normal brainstem. Normal cerebellum. There is no intracranial hemorrhage. There are no findings of an acute ischemic infarction. Normal visualized paranasal sinuses. CT/Brain/Head without Contrast IMPRESSION: No acute intracranial abnormality. Electronically Signed: Edin Glasogw, at 10:48 EDT Tel , Service support ,
--- NOTE | 2019-11-15 10:02 | CT_ITS ---
We are attempting to reach an attending provider to discuss findings. An addendum with communication details will be sent when the communication is complete. STUDY: CTA HEAD AND NECK WITH CONTRAST REASON FOR EXAM: Female, 74 years old. STROKE RADIATION DOSAGE (If Supplied By Facility): CTDIvol = ( 14.49 ) mGy, DLP = ( 582.57 ) mGycm TECHNIQUE: CT angiography was performed with a multi-detector CT scanner. Data acquisition was obtained from the skull base through the vertex following intravenous administration of IV 100mL Isovue-370. MIP images were reconstructed from the axial data set. Post-processing of the angiographic images was performed, with multiplanar reformation and 3D reconstruction. Individualized dose optimization techniques were used for this CT. COMPARISON: No relevant priors. FINDINGS: Normal bilateral petrous carotid arteries. Normal right cavernous carotid artery with a normal supraclinoid bifurcation. Normal left cavernous carotid artery with a normal supraclinoid bifurcation. Normal right A1 segments of the anterior cerebral artery. Normal left A1 segments of the anterior cerebral artery. Normal intact anterior communicating artery (ACOM). Normal bilateral A2 segments of the anterior cerebral arteries. Normal right M1 and M2 segments of the middle cerebral arteries, with a normal M1 bifurcation. Normal left M1 and M2 segments of the middle cerebral arteries, with a normal M1 bifurcation. Normal right posterior communicating artery (PCOM). Normal left posterior communicating artery (PCOM). Normal bilateral vertebral arteries. Normal basilar artery with a normal basilar bifurcation. The visualized bilateral superior cerebellar (SCA) arteries are normal. Normal bilateral P1, P2 and visualized P3 segments of the posterior cerebral arteries. There is no demonstrated aneurysm of the [place]. There is no demonstrated abnormality of the visualized brain. AORTIC ARCH: Normal visualized aortic arch. Normal origins of the brachiocephalic, left common carotid, and left subclavian arteries. RIGHT CAROTID ARTERIES: Normal right common carotid artery (CCA). There is mild atherosclerotic plaque formation with minimal narrowing of the right carotid bulb. Normal origin of the right internal carotid (ICA) artery without a hemodynamically significant stenosis. Normal visualized cervical portion of the right internal carotid artery. Normal origin of the right external carotid artery (ECA). LEFT CAROTID ARTERIES: Normal left common carotid artery (CCA). There is mild atherosclerotic plaque formation with minimal narrowing of the left carotid bulb. Normal origin of the left internal carotid (ICA) artery without a hemodynamically significant stenosis. Normal visualized cervical portion of the left internal carotid artery. Normal origin of the left external carotid artery (ECA). VERTEBRAL ARTERIES: Normal bilateral vertebral arteries. CT/CTA Head AND Neck W/ Contrast IMPRESSION: Unremarkable CTA Head and neck with contrast. Electronically Signed: Edin Glasgow, at 10:51 EDT Tel , Service support ,
[2019-11-15 10:10] LABS: Absolute Lymphocyte Count 1.25 X10^3/uL (0.83-4.51); Basophil# 0.02 X10^3/uL; Basophil% 0.2 % (0-1); Hematocrit 38.2 % (37-47); Hemoglobin 12.2 g/dL (12.0-15.0); Lymphocyte # 1.25 X10^3/ul (4.0); Lymphocyte % 10.8 % (19-41); Mean Corp Hgb Conc 31.9 g/dL (32-36); Mean Corpuscular Hgb 27.9 pg (27.0-32.0); Mean Corpuscular Volume 87.4 fL (81-99); Mean Platelet Vol. 11.3 fl (6.2-12.0); Monocyte# 0.31 X10^3/uL; Monocyte% 2.7 % (0-10); NRBC Flagged by Analyzer 0 % (0-5); Neutrophil # 9.98 X10^3/uL (2.7-7.7); Neutrophil % 85.9 % (47-70); Platelet Count 313 K/mm3 (150-450); RBC Distribution Width CV 16.8 % (11.6-14.6); RBC Distribution Width SD 53.2 fl (35.1-43.9); Red Blood Count 4.37 M/mm3 (4.2-5.4); White Blood Count 11.6 K/mm3 (4.4-11.0)
--- NOTE | 2019-11-15 10:12 | RAD_ITS ---
STUDY: X-RAY CHEST REASON FOR EXAM: Female, 74 years old. ETT AND OG PLACEMENT, STROKE PROTOCOL, LAST KNOWN WELL YESTERDAY AT 1800. FOUND UNRESPONSIVE THIS AM WITH LEFT FACIAL DROOP TECHNIQUE: AP COMPARISON: 01/06/2017 FINDINGS: Endotracheal tube is present with the tip terminating 2.2 cm above the albert. Enteric tube extends to left upper abdomen. Relative volume loss of the left hemithorax with patchy parenchymal opacities of the upper, middle and lower lung zones with obscuration of the left hemidiaphragm and left heart border. Right lung is clear. Normal size heart. Normal mediastinum and kwasi. Normal visualized pulmonary arteries. There is atherosclerotic calcification of the aortic arch with tortuosity. No acute bony process. There is no demonstrated abnormality of the visualized soft tissue structures of the upper abdomen. RAD/Chest 1 View (Portable) IMPRESSION: 1. Endotracheal and enteric tubes, as above. 2. Multilobar left pulmonary infiltrates particularly at the left lung base. Pneumonia and/or atelectasis suggested. Electronically Signed: Gerardo Flores MD ([place]) at 12:03 EDT , Service support ,
[2019-11-15] MEDS: 0.9% Normal Saline 1,000 ML 100 ML IV (10:16)
[2019-11-15 10:18] LABS: International Normalized Ratio 0.9; Prothrombin Time (Protime)PT. 11.9 SECONDS (11.7-14.9)
[2019-11-15 10:20] LABS: Bedside Glucose 69 mg/dL (70-110)
[2019-11-15 10:20] LABS: Partial Thromboplast Time 28.9 Seconds (24.1-36.2)
--- NOTE | 2019-11-15 10:21 | CM.ED ---
Social Work Responding to stroke alert. Patient daughter, Hellen present. Support provided. Hellen reports that patient has been living alone for the past few weeks. Hellen states that patient HCPOA is patient son, Ferdinand. Ferdinand is currently in route to the hospital per Hellen. Will continue to follow for support. Roger Seals MSW, PAUL
[2019-11-15 10:27] LABS: Anion Gap 6 (5-15); BUN 30 mg/dL (7-18); BUN/Creat Ratio 36.6 RATIO (10-20); Chloride 109 mmol/L (98-107); Creatinine, Serum 0.82 mg/dL (0.55-1.02); EST Glomerular Filtration Rate 73 mL/min (>60); Est Glom Filt Rate - Afr Amer 88 mL/min (>60); Glucose 65 mg/dL (74-106); Potassium 3.7 mmol/L (3.5-5.1); Sodium Level 141 mmol/L (136-145)
[2019-11-15] MEDS: fentaNYL 100 MCG/2 ML Ampul 50 MCG IV (10:28)
[2019-11-15] MEDS: Etomidate 20 MG/10 ML Vial IV (10:28)
--- NOTE | 2019-11-15 10:28 | ED.DCSUM_ITS ---
- ER Visit Summary Date of Service: 11/15/19 Chief Complaint: Unresponsive History of Present Illness: The patient is a [address] Hewitt. The family last saw the patient at 6:00 yesterday evening. They were unable to reach her this morning. They went out to check on her and found her unrespons augie with right facial droop. Accu-Chek by squad was 75. End-tidal CO2 by squad was 22. Her pulse ox was 88% on room air. Physical Examination: Vitals: 99.5, 184/94, 124, 18, 88% on room air which is hypoxic. General: Well-nourished and well-developed. Head: Normocephalic atraumatic. Neck: Supple, no lymphadenopathy. No JVD. Nontender. Cardiovascular: Tachycardic regular rhythm with a 2 out of 6 stock murmur Respiratory: Moderate respiratory distress with rhonchi on the right only Abdominal: Soft, nondistended, normal bowel sounds. Back: Nontender. Extremities: Nontender, no edema. Skin: Normal color, no rash. Neurologic: Unresponsive. She does not withdraw or localize to painful stimuli. Test Results: CBC shows a white count 11.6 with 86 neutrophils and 11 lymphocytes. Chem-7 shows a chloride of 109, BUN of 30, glucose of 65. INR 0.9. PTT is 28.9. Troponin is negative. Chest x-ray shows the tube to be approximately 0.78 cm above the albert. She is rotated. Urinalysis shows leukocytes, nitrites, ketones, and blood. There is 3+ bacteria. Emergency Department Course and Treatment: Patient is not protecting her airway. She was given etomidate and succinylcholine and intubated on the first attempt. She was then given a dose of fentanyl IV and started on a fentanyl drip. She was given D50 IV. She is biting down so she was given vecuronium to place the OG tube. I suspect that she aspirated so she was given Unasyn IV. Patient's NIH scale is 36. However, she is not a TPA candidate due to the timeframe. Her last known well was greater than 12 hours ago. Treatment Plan: Patient was discussed with Dr. schafer. She will be admitted to the ICU for further evaluation and treatment. Disposition: Admitted in critical condition. Impression: 1. Unresponsive. 2. Intubation by ED physician. 3. Critical care time 33 minutes. This note was generated with [employer] dictation software. It may contain incorrect words, spelling, and punctuation that were not noted in review of the chart prior to signing ED Disposition - Plan for ED Patient: Referrals: Jh Hewitt MD [Primary Care Provider] -
[2019-11-15] MEDS: Succinylcholine Chloride 200 MG/10 ML Vial 100 MG IV (10:29)
[2019-11-15] MEDS: Vecuronium Bromide 10 MG/10 ML Vial IV (10:36)
[2019-11-15] MEDS: Labetalol (Prefilled) 20 MG/4 ML IV (10:36)
[2019-11-15] MEDS: HYDROmorphone 1 MG/ML Syringe IV (10:41)
[2019-11-15] MEDS: Ipratropium/Albuterol Sulfate 3 ML AMPUL.NEB INHALATION (10:52)
[2019-11-15 10:59] LABS: Mucous, Urine 0 SEEN /hpf (<or=2+); Squamous Epithelial Cells - UA 0 SEEN /hpf (5-10)
[2019-11-15 11:01] LABS: Color, Urine Yellow (Yellow); Glucose, Dipstick Normal (Normal); Ketone-Dipstick 15 mg/dl (Negative); Leukocyte Esterase-Dipstick 100 /ul (Negative); Nitrite-Dipstick Positive (Negative); Occult Blood-Urine 50 /ul (Negative); Protein-Dipstick 100 mg/dl (Negative); Specific Gravity, Urine 1.015 (1.002-1.030); Urine Bilirubin Dipstick Negative (Negative); Urine Clarity Clear (Clear); Urine Urobilinogen Normal (Normal)
--- NOTE | 2019-11-15 11:05 | CM.ED ---
Social Work Patient son, Ferdinand (POA) now present. Support provided. Ferdinand reports to have spoken with the doctor and to have no further questions currently. Will continue to follow as needed. Roger HERNANDEZ, PAUL
[2019-11-15 11:06] LABS: Bacteria 3+ /hpf (None Seen); Red Blood Cells-Urine 0-5 SEEN /hpf (0-5); White Blood Cells 0-5 SEEN /hpf (0-5)
[2019-11-15] MEDS: Dextrose 50%-Water 25 GM/50 ML DISP.SYRIN IV (11:13)
--- NOTE | 2019-11-15 11:47 | NURSING ---
ICU ALTERED MENTAL STATUS KITTOE
--- NOTE | 2019-11-15 12:03 | HP.PCM_ITS ---
Problem List (1) Anxiety disorder Status: Chronic (2) History of CVA (cerebrovascular accident) Status: Chronic (3) History of DVT (deep vein thrombosis) Status: Chronic Comment: 1981 (4) Hyperlipidemia Status: Chronic (5) Peripheral vascular disease Status: Chronic (6) Type 2 diabetes mellitus Status: Chronic (7) basal ganglion bleed, history of Status: Chronic (8) Suspected cerebrovascular accident (CVA) Status: Acute (9) Aspiration pneumonia Status: Acute (10) Acute cystitis Status: Acute History of Present Illness Date of Admission: 11/15/19 Chief Complaint: Unresponsiveness The patient is a 74 year old F with multiple comorbidities including diabetes mellitus type 2, previous history of CVA depression with anxiety who was brought to the emergency department unresponsive. Patient was last known well around 6 PM the day prior. Her daughter who calls her every morning called several times without patient answering. Patient grandson was called to go check up on the patient who found patient unresponsive on her couch. The EMS squad was called patient was brought to the emergency department. Stroke alert was called. Patient was not given TPA is since she was outside the window for TPA. Head CT negative for acute bleed. X x-ray obtained was consistent with suspected aspiration pneumonia patient was intubated and admitted to the intensive care unit for further management Past Medical History Past Medical History (Chronic Problems): Chronic Problems Peripheral vascular disease (Chronic) History of DVT (deep vein thrombosis) (Chronic) 1981 basal ganglion bleed, history of (Chronic) Hyperlipidemia (Chronic) Type 2 diabetes mellitus (Chronic) History of CVA (cerebrovascular accident) (Chronic) Anxiety disorder (Chronic) Allergies atorvastatin calcium [From Lipitor] Allergy (Verified 11/16/18 19:05) Unknown calcium Allergy (Verified 11/16/18 19:05) Unknown ibuprofen [From Motrin] Allergy (Verified 11/16/18 19:05) Unknown Home Medications: Ambulatory Orders Medication Instructions Recorded Aspirin [Aspirin, Baby] 81 mg PO DAILY@0800 03/09/13 Gabapentin [Neurontin] 100 mg PO TID 03/09/13 Metformin HCl [Glucophage] 1,000 mg PO BID 03/09/13 Pioglitazone [Actos] 45 mg PO DAILY 03/09/13 Clonazepam 0.5 mg PO BID PRN PRN 10/19/13 Omeprazole [Prilosec] 20 mg PO BID 10/19/13 Venlafaxine HCl [Effexor] 75 mg PO BID 10/19/13 Albuterol Inhaler [Ventolin Hfa] 1 puff INHALATION Q4H PRN PRN 01/03/14 Olanzapine [Zyprexa] 5 mg PO QHS 01/03/14 Insulin Glargine [Lantus SoloStar 65 units SC BID 05/15/14 Pen] Cholecalciferol (VIT D3) [Vitamin 1,000 mg PO DAILY 01/06/17 D3] Rosuvastatin Calcium [Crestor] 20 mg PO QHS 01/06/17 Calcium Carbonate 500 mg PO BID 11/16/18 Hydrocortisone 2.5% Crm [Hytone] 1 applic TOPICAL BID 11/16/18 Insulin Lispro [Humalog KwikPen] 6 unit SQ TIDCM 11/16/18 Memantine HCl 5 mg PO BID 11/16/18 Acetaminophen [Tylenol Extra 1,000 mg PO Q8H PRN PRN #20 tab 11/18/18 Strength] Insulin Lispro [Humalog KwikPen] 8 unit SQ DINNER 11/15/19 Surgical History: cholecystectomy Smoking Status: Current every day smoker - *Family History Paternal History Items: - - Unable to obtain given patient current condition (unresponsive) Review of Systems Unable to obtain accurate/complete ROS d/t: Unable to obtain due to patient being unresponsive VTE Information - Inpt Only VTE Present on Admission: No VTE Mechan Device Prophylaxis: None VTE Pharm Prophylaxis ordered?: Yes Patient Problems: Active and Suspected Problems Suspected cerebrovascular accident (CVA) (Acute) Aspiration pneumonia (Acute) Acute cystitis (Acute) Objective: GENERAL: Patient unresponsive HEENT: Atraumatic; EYES; Anicteric, pupils nonreactive NECK; supple, normal thyroid, RESPIRATORY: Diminished to auscultation CARDIOVASCULAR: Regular S1 S2, GI: soft, normoactive bowel sounds, : Catheter in place EXTREMITIES: , no clubbing, MUSCULOSKELETAL: no muscle waisting NEURO: Patient obtunded SKIN: No Rash PSYCH; unable to assess - Physical Exam Vitals/I&O's: Vital Signs Temp Pulse Resp BP Pulse Ox 99.4 F H 93 22 H 137/66 H 100 11/15/19 11:30 11/15/19 11:30 11/15/19 11:30 11/15/19 11:30 11/15/19 11:30 Oxygen Delivery Method Mechanical Ventilator Weight: 79.2 kg Body Mass Index (BMI) 30.9 Finger Stick Blood Glucose 69 Laboratory Results 11/15/19 10:03: WBC 11.6 H, RBC 4.37, Hgb 12.2, Hct 38.2, MCV 87.4, MCH 27.9, MCHC 31.9 L, RDW Std Deviation 53.2 H, RDW Coeff of Fadumo 16.8 H, Plt Count 313, MPV 11.3, Immature Gran % (Auto) 0.400, Neut % (Auto) 85.9 H, Lymph % (Auto) 10.8 L, [place] % (Auto) 2.7, Eos % (Auto) 0.0, Baso % (Auto) 0.2, Absolute Neuts (auto) 10.0 H, Absolute Lymphs (auto) 1.25, Nucleated RBC % 0 11/15/19 10:03: PT 11.9, INR 0.9, APTT 28.9 11/15/19 10:03: Sodium 141, Potassium 3.7, Chloride 109 H, Carbon Dioxide 26.0, Anion Gap 6, BUN 30 H, Creatinine 0.82, Estim Creat Clear Calc 51.30, Est GFR (MDRD) Af Amer 88, Est GFR (MDRD) Non-Af 73, BUN/Creatinine Ratio 36.6 H, Glucose 65 L, Calcium 10.0, Troponin I < 0.015 11/15/19 10:16: POC Glucose 69 L 11/15/19 10:35: Urine Color Yellow, Urine Clarity Clear, Urine pH 8.0, Ur Specific [place] 1.015, Urine Protein 100 H, Urine Glucose (UA) Normal, Urine Ketones 15 H, Urine Occult Blood 50 H, Urine Nitrite Positive H, Urine Bilirubin Negative, Urine Urobilinogen Normal, Ur Leukocyte Esterase 100 H, Urine RBC 0-5 SEEN, Urine WBC 0-5 SEEN, Ur Squamous Epith Cells 0 SEEN, Urine Bacteria 3+, Urine Mucus 0 SEEN Current Medications Sodium Chloride () 1,000 mls @ 100 mls/hr IV .Q10H ONE Stop: 11/15/19 20:01 Last Admin: 11/15/19 10:16 Dose: 100 mls/hr Documented by: Fentanyl () 100 mls @ 5 mls/hr IV UD JOCELINE; Protocol Labetalol HCl (Trandate) 20 mg IV X1 PRN PRN Reason: BLOOD PRESSURE Last Admin: 11/15/19 10:36 Dose: 20 mg Documented by: Assessment/Plan All Active Problems Suspected cerebrovascular accident (CVA) (Acute) Aspiration pneumonia (Acute) Acute cystitis (Acute) Acute on recurrent syncope with collapse (Resolved) Acute on recurrent fall (Resolved) Patient is a 74-year-old lady brought in unresponsive 1. Acute encephalopathy ?With high suspicion for acute ischemic CVA. Patient was deemed not to TPA candidate since last known to be well over 15 hours. Patient started on antiplatelet therapy with aspirin per rectum admitted to the intensive care unit. Plan is for patient to undergo subsequent evaluation with a 2D echo and MRI if patient is weaned from the vent 2. Acute hypoxic respiratory failure ?Patient was found to be saturating around 88% when first brought to the ED was intubated. Patient admitted to the intensive care unit consult placed to pulmonary medicine for vent management 3. Aspiration pneumonia ?. Patient intubated as stated above started on Unasyn and Levaquin after cultures were sent 4. Acute cystitis ?Patient is on antibiotics as discussed above plan is adjust antibiotic therapy based on culture result 5. Diabetes mellitus type 2 ?Held patient home regimen please on Accu-Cheks Accu-Cheks every 6 with sliding scale coverage 6. Previous history of DVT ?Patient completed anticoagulation therapy 7. 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 Peripheral arterial disease ?Antiplatelet therapy with aspirin at home 9. Dyslipidemia -patient is on rosuvastatin at home 10. GERD ?On PPI at home 11. Diabetic polyneuropathy ?Patient is on gabapentin at home 12. Depression with anxiety - She is on Effexor at home 13. DVT prophylaxis - On enoxaparin Advance planning; did discuss with the patient condition and prognosis with her daughter and his son CRISTINE. All questions were answered. Plan is for patient to be kept on the vent and a full CODE STATUS at this point. Family to review and decide if there is a need to change the CODE STATUS after 24 hours Order was placed. Time spent on discussion 18 minutes. Inpatient E&M: 43910 Init Hosp L3 Procedures: 12071 Advncd Care Plan 30 Min
[2019-11-15] MEDS: fentaNYL drip 100 ML 5 MCG IV (12:11)
--- NOTE | 2019-11-15 12:18 | NURSING ---
ICU 3
--- NOTE | 2019-11-15 12:30 | CON.PCM_ITS ---
Reason for Consult Date of Consultation: 11/15/19 Reason for Consultation: Acute respiratory failure History of Present Illness: The patient is a 74-year-old female, with a history as outlined below, who presented to the emergency department via EMS on the morning of November 14 after being found unresponsive by family members. The patient was last known to be in her normal state of health last evening around 6 PM. Her grandson apparently checked on her this morning over concerns by other family members and found her unresponsive on the couch. On presentation to the emergency department, the patient was noted to have a low-grade fever and was tachycardic and hypertensive. Laboratory evaluation revealed a mildly elevated white blood cell count. Coagulation profile was within normal limits. Chemistry profile was largely unrevealing. Blood glucose was low at 65. Troponin was negative. Urine analysis was positive for nitrites, leukocyte esterase and 3+ urine bacteria. CT head revealed no acute intracranial pathology. CTA head neck was largely unremarkable. On arrival to the ED, the patient's mentation was so depressed that she was unable to protect her airway. Her initial NIH score was noted to be 36. She was not deemed to be a TPA candidate. The patient was intubated in the emergency department and started on Unasyn over concerns for possible aspiration. The patient was subsequently admitted to the medical intensive care unit for further management. Past Medical History Past Medical History (Chronic Problems): Chronic Problems Peripheral vascular disease (Chronic) History of DVT (deep vein thrombosis) (Chronic) 1982 basal ganglion bleed, history of (Chronic) Hyperlipidemia (Chronic) Type 2 diabetes mellitus (Chronic) History of CVA (cerebrovascular accident) (Chronic) Anxiety disorder (Chronic) Allergies atorvastatin calcium [From Lipitor] Allergy (Verified 11/16/18 19:05) Unknown calcium Allergy (Verified 11/16/18 19:05) Unknown ibuprofen [From Motrin] Allergy (Verified 11/16/18 19:05) Unknown Home Medications: Ambulatory Orders Medication Instructions Recorded Aspirin [Aspirin, Baby] 81 mg PO DAILY@0800 03/09/13 Gabapentin [Neurontin] 100 mg PO TID 03/09/13 Metformin HCl [Glucophage] 1,000 mg PO BID 03/09/13 Pioglitazone [Actos] 45 mg PO DAILY 03/09/13 Clonazepam 0.5 mg PO BID PRN PRN 10/19/13 Omeprazole [Prilosec] 20 mg PO BID 10/19/13 Venlafaxine HCl [Effexor] 75 mg PO BID 10/19/13 Albuterol Inhaler [Ventolin Hfa] 1 puff INHALATION Q4H PRN PRN 01/03/14 Olanzapine [Zyprexa] 5 mg PO QHS 01/03/14 Insulin Glargine [Lantus SoloStar 65 units SC QHS 05/15/14 Pen] Cholecalciferol (VIT D3) [Vitamin 1,000 mg PO DAILY 01/06/17 D3] Rosuvastatin Calcium [Crestor] 20 mg PO QHS 01/06/17 Calcium Carbonate 500 mg PO BID 11/16/18 Hydrocortisone 2.5% Crm [Hytone] 1 applic TOPICAL BID 11/16/18 Insulin Lispro [Humalog KwikPen] 6 unit SQ TIDCM 11/16/18 Memantine HCl 5 mg PO BID 11/16/18 Acetaminophen [Tylenol Extra 1,000 mg PO Q8H PRN PRN #20 tab 11/18/18 Strength] Insulin Lispro [Humalog KwikPen] 8 unit SQ DINNER 11/15/19 Surgical History: cholecystectomy Smoking Status: Current every day smoker - *Family History Paternal History Items: - - Unable to obtain given patient current condition (unresponsive) Review of Systems Unable to obtain accurate/complete ROS d/t: Due to current intubation and mechanical ventilation status. Patient Problems: Active and Suspected Problems Suspected cerebrovascular accident (CVA) (Acute) Aspiration pneumonia (Acute) Acute cystitis (Acute) Objective: The patient's most recent lab work, culture data and imaging studies have all been personally reviewed. - Physical Exam Vitals/I&O's: Vital Signs Temp Pulse Resp BP Pulse Ox 99.5 F H 94 14 131/66 H 100 11/15/19 12:20 11/15/19 12:20 11/15/19 12:20 11/15/19 12:20 11/15/19 12:20 Oxygen Delivery Method Mechanical Ventilator Weight: 174 lb 9.698 oz Body Mass Index (BMI) 30.9 Finger Stick Blood Glucose 69 Intake and Output for Last 24 Hours 11/13/19 11/14/19 11/15/19 23:59 23:59 23:59 Intake Total 112 / 112 Balance 112 / 112 General: - - The patient is essentially comatose, intubated and mechanically ventilated. HEENT: Atraumatic, Sluggish Pupils Oral: No Gingival or Mucosal Lesions/ Ulcerations, - - Endotracheal and OG tubes in place Neck: Supple, No Nodes, Trachea Midline Lungs: No rhonchi, No wheeze, No rales, Diminished Cardiovascular: Regular rate, Regular Rhythm Abdomen: Bowel Sounds Present, Soft, Non Tender Extremities: No clubbing, No cyanosis, No edema Skin: No breakdown Musculoskeletal: No Muscle Wasting Lymphatic: No Cervical, Supraclavicular, or Inguinal Adenopathy Neurological: - - No purposeful movements. The patient does initiate spontaneous breaths on CPAP mode mechanical ventilation. Labs (Last 48 Hours) 11/15/19 11/15/19 11/15/19 10:03 10:03 10:03 WBC 11.6 H RBC 4.37 Hgb 12.2 Hct 38.2 MCV 87.4 MCH 27.9 MCHC 31.9 L RDW Std Deviation 53.2 H RDW Coeff of Fadumo 16.8 H Plt Count 313 MPV 11.3 Immature Gran % (Auto) 0.400 Neut % (Auto) 85.9 H Lymph % (Auto) 10.8 L [place] % (Auto) 2.7 Eos % (Auto) 0.0 Baso % (Auto) 0.2 Absolute Neuts (auto) 10.0 H Absolute Lymphs (auto) 1.25 Nucleated RBC % 0 PT 11.9 INR 0.9 APTT 28.9 Sodium 141 Potassium 3.7 Chloride 109 H Carbon Dioxide 26.0 Anion Gap 6 BUN 30 H Creatinine 0.82 Estim Creat Clear Calc 51.30 Est GFR (MDRD) Af Amer 88 Est GFR (MDRD) Non-Af 73 BUN/Creatinine Ratio 36.6 H Glucose 65 L Calcium 10.0 Troponin I < 0.015 Urine Color Urine Clarity Urine pH Ur Specific [place] Urine Protein Urine Glucose (UA) Urine Ketones Urine Occult Blood Urine Nitrite Urine Bilirubin Urine Urobilinogen Ur Leukocyte Esterase Urine RBC Urine WBC Ur Squamous Epith Cells Urine Bacteria Urine Mucus POC Glucose 11/15/19 11/15/19 10:16 10:35 WBC RBC Hgb Hct MCV MCH MCHC RDW Std Deviation RDW Coeff of Fadumo Plt Count MPV Immature Gran % (Auto) Neut % (Auto) Lymph % (Auto) [place] % (Auto) Eos % (Auto) Baso % (Auto) Absolute Neuts (auto) Absolute Lymphs (auto) Nucleated RBC % PT INR APTT Sodium Potassium Chloride Carbon Dioxide Anion Gap BUN Creatinine Estim Creat Clear Calc Est GFR (MDRD) Af Amer Est GFR (MDRD) Non-Af BUN/Creatinine Ratio Glucose Calcium Troponin I Urine Color Yellow Urine Clarity Clear Urine pH 8.0 Ur Specific [place] 1.015 Urine Protein 100 H Urine Glucose (UA) Normal Urine Ketones 15 H Urine Occult Blood 50 H Urine Nitrite Positive H Urine Bilirubin Negative Urine Urobilinogen Normal Ur Leukocyte Esterase 100 H Urine RBC 0-5 SEEN Urine WBC 0-5 SEEN Ur Squamous Epith Cells 0 SEEN Urine Bacteria 3+ Urine Mucus 0 SEEN POC Glucose 69 L Clinical Impression(s) from Imaging Studies Brain CT 11/15/19 10:01 IMPRESSION: No acute intracranial abnormality. Electronically Signed: Edin Glasgow at 10:48 EDT Tel , Service support , ADDENDUM: 11/15/19 1206 Head/Neck CTA 11/15/19 10:02 IMPRESSION: Unremarkable CTA Head and neck with contrast. Electronically Signed: Edin Glasgow, at 10:51 EDT Tel , Service support , ADDENDUM: 11/15/19 1205 Chest X-Ray 11/15/19 10:12 IMPRESSION: 1. Endotracheal and enteric tubes, as above. 2. Multilobar left pulmonary infiltrates particularly at the left lung base. Pneumonia and/or atelectasis suggested. Electronically Signed: Gerardo Flores MD ([place]) at 12:03 EDT , Service support , Current Medications Sodium Chloride () 1,000 mls @ 100 mls/hr IV .Q10H ONE Stop: 11/15/19 20:01 Last Admin: 11/15/19 10:16 Dose: 100 mls/hr Documented by: Fentanyl () 100 mls @ 5 mls/hr IV UD JOCELINE; Protocol Last Admin: 11/15/19 12:11 Dose: 50 mcg/hr, 5 mls/hr Documented by: Labetalol HCl (Trandate) 20 mg IV X1 PRN PRN Reason: BLOOD PRESSURE Last Admin: 11/15/19 10:36 Dose: 20 mg Documented by: Assessment/Plan Active and Suspected Problems Suspected cerebrovascular accident (CVA) (Acute) Aspiration pneumonia (Acute) Acute cystitis (Acute) RECOMMENDATIONS: 1. Continue empiric antimicrobials, pending infectious work-up. 2. Continue to withhold all sedating medications. 3. Wean FiO2 to maintain oxygen saturations at or above 90%. 4. Obtain neurology consultation. Consider obtaining MRI to assist with prognostication. 5. Start appropriate ICU prophylaxis. IMPRESSIONS: 1. Acute Respiratory Failure Although the patient was not initially documented to be hypoxemic on arrival, she was unable to protect her airway and was subsequently intubated for airway protection. Further work-up including chest x-ray did reveal evidence of a left lower lobe airspace opacity concerning for possible pneumonia. The patient is currently on appropriate antimicrobials. Arterial blood gases within normal limits. Plan to continue current supportive measures including invasive mechanical ventilatory support with a goal to wean FiO2 to maintain oxygen saturations at or above 90%. I would recommend that all sedating medications be placed on hold at this time. 2. Encephalopathy Clinical suspicion for acute CVA versus seizure with subsequent postictal state. The patient was last known well at 6 PM on November 13. She was noted to be outside of the window for TPA administration. At this time, the patient's fentanyl has been discontinued. Recommend obtaining neurology consultation with possible MRI to assist with prognostication. 3. Acute cystitis The patient did present with findings concerning for urinary tract source of infection as well. This may also have been contributing to the patient's altered mentation. Plan to continue antibiotics as ordered. Urine culture is pending. 4. Advanced age/diabetes mellitus/history of venous thrombosis/hyperlipidemia/GERD/neuropathy/depression/anxiety Complicates care, management, recovery and prognosis. Continue home medications as indicated. TIME: 38 minutes of critical care time, independent of procedures, was spent addressing the patient's acute respiratory failure, encephalopathy, questionable CVA, acute cystitis, review of all data and collaboration with the care team. [id number]) [phone] [id number] Critical care first hour
--- NOTE | 2019-11-15 12:56 | ECHOD_ITS ---
Reason For Study: TIA/CVA Procedure This was a 2D Doppler, Color Flow transthoracic echocardiogram. The study was technically difficult. Contrast injection was performed. Difficult bubble study, IV placed in patients left wrist, nurse Charley in ICU pushed bubble x2 (first no succuess, second little success). Exam performed portable in ICU/CCU. Left Ventricle Normal LV size. The estimated ejection fraction is 70 %. No evidence for diastolic dysfunction. No regional wall motion abnormalities noted. Right Ventricle Normal RV size. Normal systolic function. Atria Normal left atrium. Normal right atrium. bubble study was suboptimal. Mitral Valve There is moderate mitral annular calcification. There is no mitral valve stenosis. No mitral valve insufficiency. Tricuspid Valve There is no tricuspid stenosis. Trivial tricuspid valve insufficiency. Pulmonary artery systolic pressure is 30 mmHg. Aortic Valve Moderate diffuse aortic valve calcification. There is no aortic stenosis. No aortic valve insufficiency. Pulmonic Valve There is no pulmonic valvular stenosis. No pulmonic valve insufficiency identified. Great Vessels Normal aortic root. Pericardium/Pleural No pericardial effusion. Medication Performed a rapid injection of agitated mix of 9 cc saline and 1cc air to assess for atrial septal defect. MMode/2D Measurements & Calculations LVIDd: 2.6 cm IVSd: 1.6 cm LA dimension: 3.3 cm LVIDs: 1.8 cm LVPWd: 1.2 cm RVDd: 3.3 cm FS: 29.4 % LAV(MOD-bp): 30.2 ml LA A4 area: 14.4 cm2 RA A4 area: 12.5 cm2 LAV(MOD-bp) Indexed: 16.6 ml/m2 LAV(MOD-sp2): 25.1 ml LAV(MOD-sp4): 36.6 ml Time Measurements MV dec time: 0.29 sec Doppler Measurements & Calculations MV E max rubio: 92.7 cm/sec Lat Peak E' Rubio: 6.7 cm/sec Med Peak E' Rubio: 6.7 cm/sec MV A max rubio: 158.0 cm/sec E/E' lat: 13.8 E/E' med: 13.8 MV E/A: 0.59 MV V2 max: 195.5 cm/sec MV P1/2t max rubio: 126.2 cm/sec Ao V2 max: 133.6 cm/sec MV max P.3 mmHg MV P1/2t: 67.6 msec Ao max P.1 mmHg MV V2 mean: 103.3 cm/sec MV dec slope: 546.3 cm/sec2 MV mean P.1 mmHg MV V2 VTI: 36.2 cm MVA(P1/2t): 3.3 cm2 LV V1 max: 112.2 cm/sec PA V2 max: 127.3 cm/sec TR max rubio: 225.6 cm/sec LV V1 max P.0 mmHg TR max P.4 mmHg Interpretation Summary The estimated ejection fraction is 70 %. No evidence for diastolic dysfunction. There is moderate mitral annular calcification. Moderate diffuse aortic valve calcification. Ordering Physician: Alin Trammell Referring Physician: Jh Hewitt M.D. Performed By: Tony Ruano RCS
--- NOTE | 2019-11-15 13:41 | TELEMED_ITS ---
[facility] Tele[facility] has confirmed receipt of a request for visit. This document confirms receipt of the order initiating the consult. To find the results of the consultation, please view the patient's reports for the scanned Telemed Consult.
[2019-11-15] MEDS: Enoxaparin 40 MG/0.4 ML Syringe SC (14:28)
[2019-11-15] MEDS: Aspirin 300 MG Suppository RECTAL (14:28)
[2019-11-15 14:47] LABS: Lactic Acid 1.5 mmol/L (0.4-1.9)
--- NOTE | 2019-11-15 15:00 | CASEMGMT ---
BRAYAN noted from a previous visit that patient is active with [employer]. SW called [facility] and spoke with coverage line. Patient is still active with [employer]. Mya Das is her behavioral health case manager. She gets home health aides from [place] 3 hours a day M- and she has a medical alert button. She will notify Mya Das and patient's providers. Daly ARCHULETA MSW
[2019-11-15 15:21] LABS: M R Staph aureus DNA By PCR Negative (Negative); Probe Check PASS; Specimen Processing Control PASS
[2019-11-15 16:51] LABS: Allen Test Positive; Blood Gas Specimen Type ART; SITE R RADIAL
[2019-11-15 16:52] LABS: FI02 70; Mode AC/VC; O2 Delivery Device ADULT VENTILATOR; PEEP 5; RR 14; Vt 450
[2019-11-15 16:53] LABS: Bicarbonate 23.6 mmol/L (22-26); PO2 114 mmHG (75-100); Total Carbon Dioxide 25 mmol/L; pCO2 33.7 mmHg (35-45); pH 7.45 (7.35-7.45)
[2019-11-15 16:54] LABS: SO2 99 % (95-99)
[2019-11-15] MEDS: Insulin Lispro 100 UNIT/ML INSULN.PEN SC (17:02)
[2019-11-15 17:06] LABS: Bedside Glucose 203 mg/dL (70-110)
[2019-11-15] MEDS: Famotidine 20 MG Tablet PO (21:05)
[2019-11-15] MEDS: Chlorhexidine 15 ML PO (21:06)
[2019-11-16] VITALS (37 sets, daily range): BP systolic 96–189; BP diastolic 45–93; PULSE 72–127; RESP 11–27; TEMP 36.2–38.3; O2SAT 93–100; BMI 29.2; BMI 27.5
[2019-11-16] MEDS: 0.9% Saline Lock 10 ML Syringe IV ×2 (00:06→23:50)
[2019-11-16] MEDS: Insulin Lispro 100 UNIT/ML INSULN.PEN SC ×4 (00:06→23:49)
[2019-11-16 00:10] LABS: Bedside Glucose 229 mg/dL (70-110)
[2019-11-16 04:21] LABS: Absolute Lymphocyte Count 1.85 X10^3/uL (0.83-4.51); Absolute Neutrophil Count 11.2 X10^3/uL (2.0-7.7); Basophil# 0.04 X10^3/uL; Basophil% 0.3 % (0-1); Eosinophil# 0.01 X10^3/uL; Eosinophils% 0.1 % (0-5); Hematocrit 33.3 % (37-47); Hemoglobin 10.5 g/dL (12.0-15.0); Lymphocyte # 1.85 X10^3/ul (4.0); Lymphocyte % 13.2 % (19-41); Mean Corp Hgb Conc 31.5 g/dL (32-36); Mean Corpuscular Hgb 27.6 pg (27.0-32.0); Mean Corpuscular Volume 87.4 fL (81-99); Mean Platelet Vol. 10.9 fl (6.2-12.0); Monocyte# 0.83 X10^3/uL; Monocyte% 5.9 % (0-10); NRBC Flagged by Analyzer 0 % (0-5); Neutrophil # 11.23 X10^3/uL (2.7-7.7); Neutrophil % 80.2 % (47-70); Platelet Count 239 K/mm3 (150-450); RBC Distribution Width CV 16.7 % (11.6-14.6); Red Blood Count 3.81 M/mm3 (4.2-5.4)
[2019-11-16 04:39] LABS: AST(SGOT) 22 U/L (15-37); Alanine Aminotransfer ALT/SGPT 12 U/L (13-56); Alkaline Phosphatase 95 U/L (45-117); Anion Gap 10 (5-15); BUN 27 mg/dL (7-18); BUN/Creat Ratio 28.2 RATIO (10-20); Bilirubin, Direct 0.12 mg/dL (0.00-0.30); Calcium,Total 8.5 mg/dL (8.5-10.1); Chloride 105 mmol/L (98-107); Cholesterol 118 mg/dL (200); Creatinine, Serum 0.96 mg/dL (0.55-1.02); EST Glomerular Filtration Rate 61 mL/min (>60); Est Glom Filt Rate - Afr Amer 74 mL/min (>60); Estimated Creatinine Clearance 41.89 ml/min; Globulin 3.8 g/dL (2.2-4.2); Glucose 238 mg/dL (74-106); High Density Lipoprotein 51 mg/dL; Magnesium 1.5 mg/dL (1.6-2.6); Potassium 3.4 mmol/L (3.5-5.1); Protein, Total 6.8 g/dL (6.4-8.2); Sodium Level 140 mmol/L (136-145); Triglycerides 190 mg/dL; Very Low Density Lipoprotein 38 mg/dL (5-40)
--- NOTE | 2019-11-16 06:13 | PN_ITS ---
Subjective: The patient was seen and examined at the bedside this morning. Events from the last 24 hours have been reviewed. The patient is currently febrile with a T-max overnight of 100.2 ?F. The patient remains hemodynamically stable with minimal ventilatory requirement. Potassium is low this morning at 3.4. Neurology consultation was obtained yesterday following arrival to the ICU. Neurology recommended holding all sedation and if no improvement in mentation this morning, obtaining MRI and EEG. Overnight, the patient has remained off of all forms of continuous sedation. She is more awake this morning, moving all extremities, but is not alert or following commands. Thick yellow secretions have been suctioned from her endotracheal tube. Objective: The patient's most recent lab work, culture data and imaging studies have all been personally reviewed. Surface echocardiogram revealed normal LV size with an ejection fraction of 70%. Pulmonary artery systolic pressure was estimated to be 30 mmHg. Strep and urine Legionella antigens were negative. Blood, urine and sputum cultures are pending. General: - - The patient remains intubated and mechanically ventilated. No ventilator dyssynchrony noted. HEENT: Atraumatic, Normocephalic Oral: No Gingival or Mucosal Lesions/ Ulcerations, - - Endotracheal and OG tubes remain in place Neck: Supple, No Nodes, Trachea Midline Lungs: Diminished, Rhonchi Cardiovascular: Normal S1, Normal S2, No murmurs, Tachycardic Abdomen: Bowel Sounds Present, Soft, Non Tender Extremities: No clubbing, No cyanosis, No edema Skin: No breakdown Musculoskeletal: No Muscle Wasting Lymphatic: No Cervical, Supraclavicular, or Inguinal Adenopathy Neurological: - - Opens eyes to verbal cues but stares blankly. Does not respond to visual threat. Moving extremities spontaneously. Does not follow commands. Vital Signs Temp Pulse Resp BP Pulse Ox 100.2 F H 127 H 15 149/65 H 94 11/16/19 06:00 11/16/19 06:00 11/16/19 06:00 11/16/19 06:00 11/16/19 06:00 Oxygen Delivery Method Mechanical Ventilator Weight: 155 lb 3.287 oz Body Mass Index (BMI) 29.2 Finger Stick Blood Glucose 69 Intake and Output for Last 24 Hours 11/14/19 11/15/19 11/16/19 23:59 23:59 23:59 Intake Total 670.25 / 670.25 50 / 50 Output Total 510 / 610 535 / 535 Balance 160.25 / 60.25 -485 / -485 Labs (Last 48 Hours) 11/15/19 11/15/19 11/15/19 10:03 10:03 10:03 WBC 11.6 H RBC 4.37 Hgb 12.2 Hct 38.2 MCV 87.4 MCH 27.9 MCHC 31.9 L RDW Std Deviation 53.2 H RDW Coeff of Fadumo 16.8 H Plt Count 313 MPV 11.3 Immature Gran % (Auto) 0.400 Neut % (Auto) 85.9 H Lymph % (Auto) 10.8 L [place] % (Auto) 2.7 Eos % (Auto) 0.0 Baso % (Auto) 0.2 Absolute Neuts (auto) 10.0 H Absolute Lymphs (auto) 1.25 Nucleated RBC % 0 PT 11.9 INR 0.9 APTT 28.9 Specimen Type Sample Site pH Bicarbonate Actual Total CO2 Base Excess O2 Saturation O2 % ABG pCO2 ABG pO2 Christofer Test Respiration Rate O2 Delivery Device Vent Mode Tidal Volume POC PEEP Sodium 141 Potassium 3.7 Chloride 109 H Carbon Dioxide 26.0 Anion Gap 6 BUN 30 H Creatinine 0.82 Estim Creat Clear Calc 51.30 Est GFR (MDRD) Af Amer 88 Est GFR (MDRD) Non-Af 73 BUN/Creatinine Ratio 36.6 H Glucose 65 L Lactic Acid Calcium 10.0 Magnesium Total Bilirubin Direct Bilirubin AST ALT Alkaline Phosphatase Troponin I < 0.015 Total Protein Albumin Globulin Triglycerides Cholesterol LDL Cholesterol VLDL Cholesterol HDL Cholesterol Urine Color Urine Clarity Urine pH Ur Specific Daniel Urine Protein Urine Glucose (UA) Urine Ketones Urine Occult Blood Urine Nitrite Urine Bilirubin Urine Urobilinogen Ur Leukocyte Esterase Urine RBC Urine WBC Ur Squamous Epith Cells Urine Bacteria Urine Mucus MRSA (PCR) POC Glucose 11/15/19 11/15/19 11/15/19 10:16 10:35 11:48 WBC RBC Hgb Hct MCV MCH MCHC RDW Std Deviation RDW Coeff of Fadumo Plt Count MPV Immature Gran % (Auto) Neut % (Auto) Lymph % (Auto) [place] % (Auto) Eos % (Auto) Baso % (Auto) Absolute Neuts (auto) Absolute Lymphs (auto) Nucleated RBC % PT INR APTT Specimen Type ART Sample Site R RADIAL pH 7.45 Bicarbonate Actual 23.6 Total CO2 25 Base Excess -0 O2 Saturation 99 O2 % 70 ABG pCO2 33.7 L ABG pO2 114 H Christofer Test Positive Respiration Rate 14 O2 Delivery Device ADULT VENTILATOR Vent Mode AC/VC Tidal Volume 450 POC PEEP 5 Sodium Potassium Chloride Carbon Dioxide Anion Gap BUN Creatinine Estim Creat Clear Calc Est GFR (MDRD) Af Amer Est GFR (MDRD) Non-Af BUN/Creatinine Ratio Glucose Lactic Acid Calcium Magnesium Total Bilirubin Direct Bilirubin AST ALT Alkaline Phosphatase Troponin I Total Protein Albumin Globulin Triglycerides Cholesterol LDL Cholesterol VLDL Cholesterol HDL Cholesterol Urine Color Yellow Urine Clarity Clear Urine pH 8.0 Ur Specific Daniel 1.015 Urine Protein 100 H Urine Glucose (UA) Normal Urine Ketones 15 H Urine Occult Blood 50 H Urine Nitrite Positive H Urine Bilirubin Negative Urine Urobilinogen Normal Ur Leukocyte Esterase 100 H Urine RBC 0-5 SEEN Urine WBC 0-5 SEEN Ur Squamous Epith Cells 0 SEEN Urine Bacteria 3+ Urine Mucus 0 SEEN MRSA (PCR) POC Glucose 69 L 11/15/19 11/15/19 11/15/19 13:55 13:55 13:55 WBC RBC Hgb Hct MCV MCH MCHC RDW Std Deviation RDW Coeff of Fadumo Plt Count MPV Immature Gran % (Auto) Neut % (Auto) Lymph % (Auto) [place] % (Auto) Eos % (Auto) Baso % (Auto) Absolute Neuts (auto) Absolute Lymphs (auto) Nucleated RBC % PT INR APTT Specimen Type Sample Site pH Bicarbonate Actual Total CO2 Base Excess O2 Saturation O2 % ABG pCO2 ABG pO2 Christofer Test Respiration Rate O2 Delivery Device Vent Mode Tidal Volume POC PEEP Sodium Potassium Chloride Carbon Dioxide Anion Gap BUN Creatinine Estim Creat Clear Calc Est GFR (MDRD) Af Amer Est GFR (MDRD) Non-Af BUN/Creatinine Ratio Glucose Lactic Acid 1.5 Calcium Magnesium Total Bilirubin Direct Bilirubin AST ALT Alkaline Phosphatase Troponin I < 0.015 Total Protein Albumin Globulin Triglycerides Cholesterol LDL Cholesterol VLDL Cholesterol HDL Cholesterol Urine Color Urine Clarity Urine pH Ur Specific Daniel Urine Protein Urine Glucose (UA) Urine Ketones Urine Occult Blood Urine Nitrite Urine Bilirubin Urine Urobilinogen Ur Leukocyte Esterase Urine RBC Urine WBC Ur Squamous Epith Cells Urine Bacteria Urine Mucus MRSA (PCR) Negative POC Glucose 11/15/19 11/15/19 11/15/19 16:55 16:58 20:05 WBC RBC Hgb Hct MCV MCH MCHC RDW Std Deviation RDW Coeff of Fadumo Plt Count MPV Immature Gran % (Auto) Neut % (Auto) Lymph % (Auto) [place] % (Auto) Eos % (Auto) Baso % (Auto) Absolute Neuts (auto) Absolute Lymphs (auto) Nucleated RBC % PT INR APTT Specimen Type Sample Site pH Bicarbonate Actual Total CO2 Base Excess O2 Saturation O2 % ABG pCO2 ABG pO2 Christofer Test Respiration Rate O2 Delivery Device Vent Mode Tidal Volume POC PEEP Sodium Potassium Chloride Carbon Dioxide Anion Gap BUN Creatinine Estim Creat Clear Calc Est GFR (MDRD) Af Amer Est GFR (MDRD) Non-Af BUN/Creatinine Ratio Glucose Lactic Acid Calcium Magnesium Total Bilirubin Direct Bilirubin AST ALT Alkaline Phosphatase Troponin I < 0.015 < 0.015 Total Protein Albumin Globulin Triglycerides Cholesterol LDL Cholesterol VLDL Cholesterol HDL Cholesterol Urine Color Urine Clarity Urine pH Ur Specific Daniel Urine Protein Urine Glucose (UA) Urine Ketones Urine Occult Blood Urine Nitrite Urine Bilirubin Urine Urobilinogen Ur Leukocyte Esterase Urine RBC Urine WBC Ur Squamous Epith Cells Urine Bacteria Urine Mucus MRSA (PCR) POC Glucose 203 H 11/16/19 11/16/19 11/16/19 00:03 04:15 04:15 WBC 14.0 H RBC 3.81 L Hgb 10.5 L Hct 33.3 L MCV 87.4 MCH 27.6 MCHC 31.5 L RDW Std Deviation 54.0 H RDW Coeff of Fadumo 16.7 H Plt Count 239 MPV 10.9 Immature Gran % (Auto) 0.300 Neut % (Auto) 80.2 H Lymph % (Auto) 13.2 L [place] % (Auto) 5.9 Eos % (Auto) 0.1 Baso % (Auto) 0.3 Absolute Neuts (auto) 11.2 H Absolute Lymphs (auto) 1.85 Nucleated RBC % 0 PT INR APTT Specimen Type Sample Site pH Bicarbonate Actual Total CO2 Base Excess O2 Saturation O2 % ABG pCO2 ABG pO2 Christofer Test Respiration Rate O2 Delivery Device Vent Mode Tidal Volume POC PEEP Sodium 140 Potassium 3.4 L Chloride 105 Carbon Dioxide 25.0 Anion Gap 10 BUN 27 H Creatinine 0.96 Estim Creat Clear Calc 41.89 Est GFR (MDRD) Af Amer 74 Est GFR (MDRD) Non-Af 61 BUN/Creatinine Ratio 28.2 H Glucose 238 H Lactic Acid Calcium 8.5 Magnesium 1.5 L Total Bilirubin 0.40 Direct Bilirubin 0.12 AST 22 ALT 12 L Alkaline Phosphatase 95 Troponin I Total Protein 6.8 Albumin 3.0 L Globulin 3.8 Triglycerides 190 Cholesterol 118 LDL Cholesterol 29 VLDL Cholesterol 38 HDL Cholesterol 51 Urine Color Urine Clarity Urine pH Ur Specific Daniel Urine Protein Urine Glucose (UA) Urine Ketones Urine Occult Blood Urine Nitrite Urine Bilirubin Urine Urobilinogen Ur Leukocyte Esterase Urine RBC Urine WBC Ur Squamous Epith Cells Urine Bacteria Urine Mucus MRSA (PCR) POC Glucose 229 H Microbiology 11/15/19 14:20 Urine Catheter - Boyer Legionella Antigen - Final 11/15/19 14:20 Urine Catheter - Boyer Streptococcus pneumoniae Antigen (M - Final Clinical Impression(s) from Imaging Studies Brain CT 11/15/19 10:01 IMPRESSION: No acute intracranial abnormality. Electronically Signed: Edin Glasgow at 10:48 EDT Tel , Service support , ADDENDUM: 11/15/19 1206 Head/Neck CTA 11/15/19 10:02 IMPRESSION: Unremarkable CTA Head and neck with contrast. Electronically Signed: Edin Glasgow at 10:51 EDT Tel , Service support , ADDENDUM: 11/15/19 1205 Chest X-Ray 11/15/19 10:12 IMPRESSION: 1. Endotracheal and enteric tubes, as above. 2. Multilobar left pulmonary infiltrates particularly at the left lung base. Pneumonia and/or atelectasis suggested. Electronically Signed: Gerardo Flores MD ([place]) at 12:03 EDT , Service support , Medical Necessity - Tobacco Use Smoking Status: Current every day smoker Assessment/Plan All Active Problems Suspected cerebrovascular accident (CVA) (Acute) Aspiration pneumonia (Acute) Acute cystitis (Acute) Acute on recurrent syncope with collapse (Resolved) Acute on recurrent fall (Resolved) RECOMMENDATIONS: 1. Continue current supportive measures including invasive mechanical ventilatory support. 2. Wean FiO2 to maintain oxygen saturations at or above 90%. 3. Continue empiric antimicrobials. 4. Continue to withhold all sedating medications. 5. Obtain EEG and MRI brain. 6. Okay to start tube feeds from my perspective. 7. Continue appropriate ICU prophylaxis. IMPRESSIONS: 1. Acute Respiratory Failure Although the patient was not initially documented to be hypoxemic on arrival, she was unable to protect her airway and was subsequently intubated for airway protection. Further work-up including chest x-ray did reveal evidence of a left lower lobe airspace opacity concerning for possible pneumonia. The patient is currently on appropriate antimicrobials. Plan to continue current supportive measures including invasive mechanical ventilatory support with a goal to wean FiO2 to maintain oxygen saturations at or above 90%. 2. Encephalopathy Clinical suspicion for acute CVA versus seizure with post ictal state. The patient was last known well at 6 PM on November 13. She was noted to be outside of the window for TPA administration. Plan at this time will include holding all sedating medications. EEG and MRI brain will be obtained today. 3. Acute cystitis The patient did present with findings concerning for urinary tract source of infection as well. This may also have been contributing to the patient's altered mentation. Plan to continue antibiotics as ordered. Urine culture is pending. 4. Advanced age/diabetes mellitus/history of venous thrombosis/hyperlipidemia/GERD/neuropathy/depression/anxiety Complicates care, management, recovery and prognosis. Continue home medications as indicated. TIME: 36 minutes of critical care time, independent of procedures, was spent addressing the patient's acute respiratory failure, encephalopathy, questionable CVA, acute cystitis, review of all data and collaboration with the care team. ([id number]) [id number] Critical care first hour
--- NOTE | 2019-11-16 06:31 | MRI_ITS ---
STUDY: MRI BRAIN WITHOUT CONTRAST REASON FOR EXAM: Female, 74 years old. cva, unresponsive TECHNIQUE: Standardized multiplanar fat and water weighted pulse sequences were obtained. COMPARISON: CT 11/15/2019, MRI 11/11/2009 FINDINGS: There is mild cerebral atrophy with widening of the extra-axial spaces and ventricular dilatation. There are a limited number of small white matter hyperintensities, distributed throughout the deep white matter tracts of the cerebral hemispheres, consistent with mild chronic white matter ischemic changes. There is no evidence for recent intracranial ischemia or other cause of cytotoxic edema on diffusion weighted imaging (DWI). Normal T2* images of the brain without demonstrated susceptibility artifact. There is no demonstrated hemosiderin stain. Normal bilateral basal ganglia. Normal thalami. There is no extra-axial fluid accumulation. Normal flow voids within the major intracranial circulation suggesting patency by spin echo criteria. Normal sella turcica, pituitary gland, infundibular stalk, optic chiasm and hypothalamus. Normal tectal plate and pineal gland. Normal midbrain, octavio and medulla. Normal cerebellum. Normal basal cisterns. 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 Normal bilateral internal auditory canals. There are bilateral ocular lens implants with otherwise normal intraorbital contents. Normal visualized paranasal sinuses. Normal calvarium and skull base. Normal visualized soft tissue structures. Normal visualized upper cervical spine. MRI/Brain without Contrast IMPRESSION: Involutional changes of the brain, as described above. No acute infarct. Electronically Signed: Benjy Raphael MD at 13:36 EDT Tel , Service support ,
--- NOTE | 2019-11-16 07:29 | PCM.PN.HOSP ---
Patient Problems: Active and Suspected Problems Suspected cerebrovascular accident (CVA) (Acute) Aspiration pneumonia (Acute) Acute cystitis (Acute) Reason for Visit: Acute encephalopathy Subjective: Patient is a 74-year-old lady brought in unresponsive with a suspicion of acute CVA was made admitted to the intensive care unit after patient was intubated Objective: GENERAL: Remains on the vent but moving extremities spontaneously HEENT: Atraumatic; EYES; Anicteric, pupils nonreactive NECK; supple, normal thyroid, RESPIRATORY: Diminished to auscultation CARDIOVASCULAR: Regular S1 S2, GI: soft, normoactive bowel sounds, : Catheter in place EXTREMITIES: , no clubbing, MUSCULOSKELETAL: no muscle waisting NEURO: Patient obtunded SKIN: No Rash PSYCH; unable to assess Vitals/I&O's: Vital Signs Temp Pulse Resp BP Pulse Ox 100.2 F H 115 H 19 H 179/89 H 99 11/16/19 07:00 11/16/19 07:09 11/16/19 07:09 11/16/19 07:00 11/16/19 07:09 Oxygen Delivery Method Mechanical Ventilator Weight: 70.4 kg Body Mass Index (BMI) 29.2 Finger Stick Blood Glucose 69 Intake and Output for Last 24 Hours 11/14/19 11/15/19 11/16/19 23:59 23:59 23:59 Intake Total 670.25 / 670.25 50 / 50 Output Total 510 / 610 535 / 535 Balance 160.25 / 60.25 -485 / -485 Microbiology Past 72 Hours 11/15/19 14:20 Urine Catheter - Boyer Legionella Antigen - Final 11/15/19 14:20 Urine Catheter - Boyer Streptococcus pneumoniae Antigen (M - Final Laboratory Results 11/15/19 10:03: WBC 11.6 H, RBC 4.37, Hgb 12.2, Hct 38.2, MCV 87.4, MCH 27.9, MCHC 31.9 L, RDW Std Deviation 53.2 H, RDW Coeff of Fadumo 16.8 H, Plt Count 313, MPV 11.3, Immature Gran % (Auto) 0.400, Neut % (Auto) 85.9 H, Lymph % (Auto) 10.8 L, [place] % (Auto) 2.7, Eos % (Auto) 0.0, Baso % (Auto) 0.2, Absolute Neuts (auto) 10.0 H, Absolute Lymphs (auto) 1.25, Nucleated RBC % 0 11/15/19 10:03: PT 11.9, INR 0.9, APTT 28.9 11/15/19 10:03: Sodium 141, Potassium 3.7, Chloride 109 H, Carbon Dioxide 26.0, Anion Gap 6, BUN 30 H, Creatinine 0.82, Estim Creat Clear Calc 51.30, Est GFR (MDRD) Af Amer 88, Est GFR (MDRD) Non-Af 73, BUN/Creatinine Ratio 36.6 H, Glucose 65 L, Calcium 10.0, Troponin I < 0.015 11/15/19 10:16: POC Glucose 69 L 11/15/19 10:35: Urine Color Yellow, Urine Clarity Clear, Urine pH 8.0, Ur Specific [place] 1.015, Urine Protein 100 H, Urine Glucose (UA) Normal, Urine Ketones 15 H, Urine Occult Blood 50 H, Urine Nitrite Positive H, Urine Bilirubin Negative, Urine Urobilinogen Normal, Ur Leukocyte Esterase 100 H, Urine RBC 0-5 SEEN, Urine WBC 0-5 SEEN, Ur Squamous Epith Cells 0 SEEN, Urine Bacteria 3+, Urine Mucus 0 SEEN 11/15/19 11:48: Specimen Type ART, Sample Site R RADIAL, pH 7.45, Bicarbonate Actual 23.6, Total CO2 25, Base Excess -0, O2 Saturation 99, O2 % 70, ABG pCO2 33.7 L, ABG pO2 114 H, Christofer Test Positive, Respiration Rate 14, O2 Delivery Device ADULT VENTILATOR, Vent Mode AC/VC, Tidal Volume 450, POC PEEP 5 11/15/19 13:55: Lactic Acid 1.5 11/15/19 13:55: Troponin I < 0.015 11/15/19 13:55: MRSA (PCR) Negative 11/15/19 16:55: Troponin I < 0.015 11/15/19 16:58: POC Glucose 203 H 11/15/19 20:05: Troponin I < 0.015 11/16/19 00:03: POC Glucose 229 H 11/16/19 04:15: WBC 14.0 H, RBC 3.81 L, Hgb 10.5 L, Hct 33.3 L, MCV 87.4, MCH 27.6, MCHC 31.5 L, RDW Std Deviation 54.0 H, RDW Coeff of Fadumo 16.7 H, Plt Count 239, MPV 10.9, Immature Gran % (Auto) 0.300, Neut % (Auto) 80.2 H, Lymph % (Auto) 13.2 L, [place] % (Auto) 5.9, Eos % (Auto) 0.1, Baso % (Auto) 0.3, Absolute Neuts (auto) 11.2 H, Absolute Lymphs (auto) 1.85, Nucleated RBC % 0 11/16/19 04:15: Sodium 140, Potassium 3.4 L, Chloride 105, Carbon Dioxide 25.0, Anion Gap 10, BUN 27 H, Creatinine 0.96, Estim Creat Clear Calc 41.89, Est GFR (MDRD) Af Amer 74, Est GFR (MDRD) Non-Af 61, BUN/Creatinine Ratio 28.2 H, Glucose 238 H, Calcium 8.5, Magnesium 1.5 L, Total Bilirubin 0.40, Direct Bilirubin 0.12, AST 22, ALT 12 L, Alkaline Phosphatase 95, Total Protein 6.8, Albumin 3.0 L, Globulin 3.8, Triglycerides 190, Cholesterol 118, LDL Cholesterol 29, VLDL Cholesterol 38, HDL Cholesterol 51 Current Medications Acetaminophen (Tylenol) 650 mg RECTAL Q4H PRN PRN PRN Reason: Pain Score 1-10/Temp > 100.7 F Albuterol Sulfate (Ventolin Aerosols) 2.5 mg INHALATION Q2H PRN PRN PRN Reason: SOB/Wheezing Aspirin (Aspirin) 300 mg RECTAL DAILY [facility] Last Admin: 11/15/19 14:28 Dose: 300 mg Documented by: Chlorhexidine Gluconate () 15 ml PO BID [facility] Last Admin: 11/15/19 21:06 Dose: 15 ml Documented by: Dextrose (D50w Syringe) 0 gm IV X1 PRN; Protocol PRN Reason: Hypoglycemia Enoxaparin Sodium (Lovenox) 40 mg SC DAILY [facility] Last Admin: 11/15/19 14:28 Dose: 40 mg Documented by: Famotidine (Pepcid) 20 mg PO BID [facility] Last Admin: 11/15/19 21:05 Dose: 20 mg Documented by: Glucagon () 1 mg IM .X1 PRN PRN Reason: Hypoglycemia Hydralazine HCl (Apresoline Iv) 5 mg IV Q30M PRN PRN Reason: to maintain BP goals Piperacillin Sod/Tazobactam (Sod 3.375 gm/ Sodium Chloride) 50 mls @ 12.5 mls/hr IV Q8 [facility] Last Admin: 11/16/19 06:34 Dose: 12.5 mls/hr Documented by: Sodium Chloride () 250 mls @ 15 mls/hr IV .[id number] PRN PRN Reason: Saline Flush Sodium Chloride () 250 mls @ 15 mls/hr IV .[id number] PRN PRN Reason: Additional IVPB Infusion Levetiracetam () 1,000 mg in 100 mls @ 400 mls/hr IV Q12 JOCELINE Insulin Human Lispro (Humalog Kwikpen (Bkc)) 0 unit SC Q6 JOCELINE; Protocol Last Admin: 11/16/19 06:34 Dose: 2 u Documented by: Labetalol HCl (Trandate) 10 - 20 mg IV Q10M PRN PRN PRN Reason: to Maintain BP Goals Ondansetron HCl (Zofran) 4 mg IV Q8H PRN PRN PRN Reason: NAUSEA/VOMITING Sodium Chloride () 10 - 40 ml IV UD PRN PRN Reason: SALINE FLUSH Last Admin: 11/16/19 00:06 Dose: 10 ml Documented by: STROKE Vital Signs/Narrative: Vital Signs Temp Pulse Resp BP Pulse Ox 11/16/19 07:09 115 H 19 H 99 11/16/19 07:00 100.2 F H 122 H 21 H 179/89 H 98 11/16/19 06:00 100.2 F H 127 H 15 149/65 H 94 11/16/19 05:00 100.2 F H 105 H 17 123/52 H 98 11/16/19 04:00 99.9 F H 104 H 11 L 139/59 H 98 11/16/19 03:45 100 14 99 Medical Necessity - Tobacco Use Smoking Status: Current every day smoker Assessment/Plan All Active Problems Suspected cerebrovascular accident (CVA) (Acute) Aspiration pneumonia (Acute) Acute cystitis (Acute) Acute on recurrent syncope with collapse (Resolved) Acute on recurrent fall (Resolved) Patient is a 74-year-old lady brought in unresponsive with a suspicion of acute CVA was made admitted to the intensive care unit after patient was intubated 1. Acute encephalopathy ?With high suspicion for acute ischemic CVA. Patient was deemed not to TPA candidate since last known to be well over 15 hours. Patient started on antiplatelet therapy with aspirin per rectum admitted to the intensive care unit. Plan is for patient to undergo subsequent evaluation with a 2D echo and MRI if patient is weaned from the vent ?11/16/2019 patient remains on the vent without any sedation per recommendations from neurology. She is able to move all extremities plan is for patient to undergo EEG and MRI. 2. Acute hypoxic respiratory failure ?Patient was found to be saturating around 88% when first brought to the ED was intubated. Patient admitted to the intensive care unit consult placed to pulmonary medicine for vent management 3. Aspiration pneumonia ?. Patient intubated as stated above started on Unasyn and Levaquin after cultures were sent 4. Acute cystitis ?Patient is on antibiotics as discussed above plan is adjust antibiotic therapy based on culture result 5. Diabetes mellitus type 2 ?Held patient home regimen please on Accu-Cheks Accu-Cheks every 6 with sliding scale coverage 6. Previous history of DVT ?Patient completed anticoagulation therapy 7. 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 Peripheral arterial disease ?Antiplatelet therapy with aspirin at home 9. Dyslipidemia -patient is on rosuvastatin at home 10. GERD ?On PPI at home 11. Diabetic polyneuropathy ?Patient is on gabapentin at home 12. Depression with anxiety - She is on Effexor at home 13. DVT prophylaxis - On enoxaparin Inpatient E&M: [id number] [facility] L3
[2019-11-16] MEDS: Famotidine 20 MG Tablet PO ×2 (08:55→22:15)
[2019-11-16] MEDS: Enoxaparin 40 MG/0.4 ML Syringe SC (08:55)
[2019-11-16] MEDS: levETIRAcetam IV 1,000 MG/100 ML BAG 400 MG IV ×2 (08:56→22:14)
--- NOTE | 2019-11-16 10:42 | PCM.NTREPORT ---
Nutrition Therapy Report - History Nutrition Services has been consulted to:: Manage enteral nutrition Current diet / nutrition support order:: NPO - Anthropometric Measurements Height:: 5 ft 2.99 in Weight:: 70.4 kg Body Mass Index (BMI):: 27.5 - Relevant Labs Relevant Labs:: WBC 14.0 K/mm3 (4.4-11.0) H 11/16/19 04:15 RBC 3.81 M/mm3 (4.2-5.4) L 11/16/19 04:15 Hgb 10.5 g/dL (12.0-15.0) L 11/16/19 04:15 Hct 33.3 % (37-47) L 11/16/19 04:15 MCHC 31.5 g/dL (32-36) L 11/16/19 04:15 RDW Std Deviation 54.0 fl (35.1-43.9) H 11/16/19 04:15 RDW Coeff of Fadumo 16.7 % (11.6-14.6) H 11/16/19 04:15 Neut % (Auto) 80.2 % (47-70) H 11/16/19 04:15 Lymph % (Auto) 13.2 % (19-41) L 11/16/19 04:15 Absolute Neuts (auto) 11.2 X10^3/uL (2.0-7.7) H 11/16/19 04:15 Potassium 3.4 mmol/L (3.5-5.1) L 11/16/19 04:15 Chloride 109 mmol/L (98-107) H 11/15/19 10:03 BUN 27 mg/dL (7-18) H 11/16/19 04:15 BUN/Creatinine Ratio 28.2 RATIO (10-20) H 11/16/19 04:15 Glucose 238 mg/dL (74-106) H 11/16/19 04:15 Magnesium 1.5 mg/dL (1.6-2.6) L 11/16/19 04:15 ALT 12 U/L (13-56) L 11/16/19 04:15 Albumin 3.0 g/dL (3.2-5.0) L 11/16/19 04:15 - Assessment Food / Nutrition-Related History:: Discussed in ICU rounds. Pt is currently intubated w/ OG in place. Pt was unable to answer nutrition screen questions upon admission. Per EMR, wt ~1 year ago was 167.3# on 11/16/18. CBW 155.2#, suggesting a 12.1#/7.2% wt loss. Plans for MRI today- etiology of clinical state yet to be determined (stroke vs seizure). Per Dr. Willi fragoso to start enteral nutrition support today. - Nutrition Diagnosis Problem / Etiology / Signs & Symptoms (PES):: Inadequate oral intake related to respiratory status, intubation as evidenced by no PO intake since admission. Evidence of Malnutrition Exists:: No - Nutrition Intervention Nutrition Prescription:: 3744-3787 calories, 105-140 g protein per day - Food / Nutrient Delivery Interventions Summary of nutrition intervention:: 7.2% wt loss over unknown timeframe- if occured in 3 months or less, may be significant for malnutrition if wt loss was not intentional. Will start enteral nutrition support today- see below. Nutrition support ordered as / adjusted to:: If pt to remain intubated, recommend enteral nutrition support via OG- Vital AF 1.2 at 60mL/hour w/ 100mL H2O flush every 4 hours to provide 1728 calories, 108 g protein, and 1767mL total fluid/day. Enteral nutrition support will be administered via gravity feed bag. Total formula to be administered in 24 hours: 1440mL. Recommend 120mL for first 4 hours (approx. 10 drops/minute, 3 drops per 15 seconds); increase to 180mL for next 4 hours as tolerated (approx. 15 drops/minute, 4 drops per 15 seconds). Goal rate is 240mL per 4 hours (approx. 18 drops/minute, 5 drops per 15 seconds). Nutrition education provided?: No - MNT Monitoring Further MNT monitoring and evaluation required?: Yes MNT Follow-up in:: 1-2 days
[2019-11-16] MEDS: Aspirin 300 MG Suppository RECTAL (10:45)
[2019-11-16] MEDS: Chlorhexidine 15 ML PO ×2 (10:45→21:45)
--- NOTE | 2019-11-16 12:40 | NURSING ---
PT TOLERATED TRANSPORT TO MRI BY THIS RN AND PETRA, MAG, WELL. PT TRANSFERRED TO MRI TABLE WITH SLIDING BOARD AND ATTACHED TO MRI MONITOR AND VENT.
--- NOTE | 2019-11-16 12:44 | NURSING ---
PT'S LEGS SECURED WITH LEG STRAP TO CONTROL SMALL LEG MOVEMENTS. MRI RESUMED. PT OTHERWISE REMAINING STILL AND TOLERATING MRI.
[2019-11-16 13:00] LABS: Bedside Glucose 255 mg/dL (70-110)
--- NOTE | 2019-11-16 15:39 | NURSING ---
PT TOLERATED MRI WELL. RAFTA HOYT AWARE, PT DID NOT NEED PROPROFOL FOR SEDATION. TRANSPORTED BACK TO ICU BY THIS RN AND PETRA, MAG.
--- NOTE | 2019-11-16 15:47 | CASEMGMT ---
Pt noted to be intubated on mechanical ventilator and unable to participate in initial transition planning/care coordination assessment. This RN ANAHY phoned pt's son/HPJOSY Streeter, introduced self and role at [facility], Ferdinand voiced understanding. Care providers, pharmacy, and demographics verified. PCP: Dr. Hewitt Specialists: Dr. Clemons (neurologist-[place]) Preferred Pharmacy: [facility] Insurance: [place] Prescription Benefit: Yes Living Will/HPOA: Ferdinand is HPOA. He states he thinks pt has living will papers also but he is not certain. LNOK: Son Ferdinand Living Arrangements: Pt lives in a single story apartment with her grandson. There are no steps to enter the home. Pt requires assistance with bathing and uses a rollator with ambulation. Transportation: Pt's family provides transportation to appointments. Her ANALYSIS ANALYST completes errands. DME: Pt has a tub bench, raised toilet seat, hand held shower, rollator, and medical alert. Pt has a prescription for a lift chair but has not yet received it. HHC: Pt has Passport services including an aide 5 days/week for 3hrs/day (pt's quinton is the caregiver employed through [employer] [employer]) and christian science nurse. No senior care services currently being provided. ANALYSIS ANALYST assists pt with ADLs including bathing, cooking, cleaning, obtaining groceries, and running errands. SNF: Pt has not had any previous SNF stays. Plan: To be determined. Will continue to monitor pt's progress to determine discharge disposition/needs. John Shanks RN CM
[2019-11-16 18:46] LABS: Bedside Glucose 182 mg/dL (70-110)
[2019-11-16] MEDS: Vital AF 1.2 Cal Liquid 1,000 ML 25 ML GT (18:48)
[2019-11-17] VITALS (42 sets, daily range): BP systolic 114–175; BP diastolic 38–81; PULSE 64–117; RESP 0–30; TEMP 37.4–37.7; O2SAT 94–100; BMI 27.5
[2019-11-17 00:16] LABS: Bedside Glucose 208 mg/dL (70-110)
[2019-11-17] MEDS: Vital AF 1.2 Cal Liquid 1,000 ML 60 ML GT (03:00)
[2019-11-17 04:07] LABS: Absolute Lymphocyte Count 3.09 X10^3/uL (0.83-4.51); Absolute Neutrophil Count 7.5 X10^3/uL (2.0-7.7); Basophil# 0.04 X10^3/uL; Basophil% 0.4 % (0-1); Eosinophil# 0.02 X10^3/uL; Eosinophils% 0.2 % (0-5); Hematocrit 33.3 % (37-47); Hemoglobin 10.4 g/dL (12.0-15.0); Lymphocyte # 3.09 X10^3/ul (4.0); Lymphocyte % 27.2 % (19-41); Mean Corp Hgb Conc 31.2 g/dL (32-36); Mean Corpuscular Hgb 27.5 pg (27.0-32.0); Mean Corpuscular Volume 88.1 fL (81-99); Mean Platelet Vol. 11.5 fl (6.2-12.0); Monocyte# 0.68 X10^3/uL; NRBC Flagged by Analyzer 0 % (0-5); Neutrophil # 7.48 X10^3/uL (2.7-7.7); Neutrophil % 65.8 % (47-70); Platelet Count 259 K/mm3 (150-450); RBC Distribution Width CV 16.8 % (11.6-14.6); RBC Distribution Width SD 54.2 fl (35.1-43.9); Red Blood Count 3.78 M/mm3 (4.2-5.4); White Blood Count 11.4 K/mm3 (4.4-11.0)
[2019-11-17 05:41] LABS: Anion Gap 9 (5-15); BUN 30 mg/dL (7-18); BUN/Creat Ratio 32.3 RATIO (10-20); Calcium,Total 8.3 mg/dL (8.5-10.1); Chloride 108 mmol/L (98-107); Creatinine, Serum 0.93 mg/dL (0.55-1.02); EST Glomerular Filtration Rate 63 mL/min (>60); Est Glom Filt Rate - Afr Amer 76 mL/min (>60); Estimated Creatinine Clearance 43.25 ml/min; Glucose 276 mg/dL (74-106); Potassium 3.1 mmol/L (3.5-5.1); Sodium Level 143 mmol/L (136-145)
--- NOTE | 2019-11-17 06:18 | PN_ITS ---
Subjective: The patient was seen and examined at the bedside this morning. Events from the last 24 hours have been reviewed. The patient is currently afebrile, hemodynamically stable and maintaining appropriate oxygen saturations on assist control mode of mechanical ventilation with an FiO2 requirement of 30%. Potassium is low this morning at 3.1. When placed on spontaneous mode of mechanical ventilation this morning, the patient remained apneic. No gross seizure activity has been noted by the nursing staff. The patient remains off of all forms of sedation. Objective: The patient's most recent lab work, culture data and imaging studies have all been personally reviewed. Surface echocardiogram revealed normal LV size with an ejection fraction of 70%. Pulmonary artery systolic pressure was estimated to be 30 mmHg. Brain MRI revealed involutional changes of the brain without acute infarction. Strep and urine Legionella antigens were negative. Blood, urine and sputum cultures are pending. General: - - Remains intubated and mechanically ventilated. Apnea backup ventilation occurs when patient is placed on spontaneous mode of mechanical ventilation. HEENT: Atraumatic, Normocephalic Oral: No Gingival or Mucosal Lesions/ Ulcerations, - - Endotracheal and OG tubes remain in place. Neck: Supple, No Nodes, Trachea Midline Lungs: No rhonchi, No wheeze, No rales, Diminished Cardiovascular: Regular rate, Regular Rhythm Abdomen: Bowel Sounds Present, Soft, Non Tender Extremities: No clubbing, No cyanosis, No edema Skin: No breakdown Musculoskeletal: No Tenderness to Palpation of Joints or Extremities Lymphatic: No Cervical, Supraclavicular, or Inguinal Adenopathy Neurological: - - Opens eyes to verbal cues but will not follow commands. Moves extremities spontaneously. Psych/Mental Status: Flat Affect Vital Signs Temp Pulse Resp BP Pulse Ox 99.8 F H 72 14 126/44 H 98 11/17/19 06:00 11/17/19 06:00 11/17/19 06:00 11/17/19 06:00 11/17/19 06:00 Oxygen Delivery Method Mechanical Ventilator Weight: 154 lb 1.65 oz Body Mass Index (BMI) 27.5 Finger Stick Blood Glucose 69 Intake and Output for Last 24 Hours 11/15/19 11/16/19 11/17/19 23:59 23:59 23:59 Intake Total 670.25 / 670.25 550 / 550 350 / 350 Output Total 510 / 610 770 / 770 125 / 125 Balance 160.25 / 60.25 -220 / -220 225 / 225 Labs (Last 48 Hours) 11/15/19 11/15/19 11/15/19 10:03 10:03 10:03 WBC 11.6 H RBC 4.37 Hgb 12.2 Hct 38.2 MCV 87.4 MCH 27.9 MCHC 31.9 L RDW Std Deviation 53.2 H RDW Coeff of Fadumo 16.8 H Plt Count 313 MPV 11.3 Immature Gran % (Auto) 0.400 Neut % (Auto) 85.9 H Lymph % (Auto) 10.8 L Campbell % (Auto) 2.7 Eos % (Auto) 0.0 Baso % (Auto) 0.2 Absolute Neuts (auto) 10.0 H Absolute Lymphs (auto) 1.25 Nucleated RBC % 0 PT 11.9 INR 0.9 APTT 28.9 Specimen Type Sample Site pH Bicarbonate Actual Total CO2 Base Excess O2 Saturation O2 % ABG pCO2 ABG pO2 Christofer Test Respiration Rate O2 Delivery Device Vent Mode Tidal Volume POC PEEP Sodium 141 Potassium 3.7 Chloride 109 H Carbon Dioxide 26.0 Anion Gap 6 BUN 30 H Creatinine 0.82 Estim Creat Clear Calc 51.30 Est GFR (MDRD) Af Amer 88 Est GFR (MDRD) Non-Af 73 BUN/Creatinine Ratio 36.6 H Glucose 65 L Lactic Acid Calcium 10.0 Magnesium Total Bilirubin Direct Bilirubin AST ALT Alkaline Phosphatase Troponin I < 0.015 Total Protein Albumin Globulin Triglycerides Cholesterol LDL Cholesterol VLDL Cholesterol HDL Cholesterol Urine Color Urine Clarity Urine pH Ur Specific [place] Urine Protein Urine Glucose (UA) Urine Ketones Urine Occult Blood Urine Nitrite Urine Bilirubin Urine Urobilinogen Ur Leukocyte Esterase Urine RBC Urine WBC Ur Squamous Epith Cells Urine Bacteria Urine Mucus MRSA (PCR) POC Glucose 11/15/19 11/15/19 11/15/19 10:16 10:35 11:48 WBC RBC Hgb Hct MCV MCH MCHC RDW Std Deviation RDW Coeff of Fadumo Plt Count MPV Immature Gran % (Auto) Neut % (Auto) Lymph % (Auto) Campbell % (Auto) Eos % (Auto) Baso % (Auto) Absolute Neuts (auto) Absolute Lymphs (auto) Nucleated RBC % PT INR APTT Specimen Type ART Sample Site R RADIAL pH 7.45 Bicarbonate Actual 23.6 Total CO2 25 Base Excess -0 O2 Saturation 99 O2 % 70 ABG pCO2 33.7 L ABG pO2 114 H Christofer Test Positive Respiration Rate 14 O2 Delivery Device ADULT VENTILATOR Vent Mode AC/VC Tidal Volume 450 POC PEEP 5 Sodium Potassium Chloride Carbon Dioxide Anion Gap BUN Creatinine Estim Creat Clear Calc Est GFR (MDRD) Af Amer Est GFR (MDRD) Non-Af BUN/Creatinine Ratio Glucose Lactic Acid Calcium Magnesium Total Bilirubin Direct Bilirubin AST ALT Alkaline Phosphatase Troponin I Total Protein Albumin Globulin Triglycerides Cholesterol LDL Cholesterol VLDL Cholesterol HDL Cholesterol Urine Color Yellow Urine Clarity Clear Urine pH 8.0 Ur Specific [place] 1.015 Urine Protein 100 H Urine Glucose (UA) Normal Urine Ketones 15 H Urine Occult Blood 50 H Urine Nitrite Positive H Urine Bilirubin Negative Urine Urobilinogen Normal Ur Leukocyte Esterase 100 H Urine RBC 0-5 SEEN Urine WBC 0-5 SEEN Ur Squamous Epith Cells 0 SEEN Urine Bacteria 3+ Urine Mucus 0 SEEN MRSA (PCR) POC Glucose 69 L 11/15/19 11/15/19 11/15/19 13:55 13:55 13:55 WBC RBC Hgb Hct MCV MCH MCHC RDW Std Deviation RDW Coeff of Fadumo Plt Count MPV Immature Gran % (Auto) Neut % (Auto) Lymph % (Auto) Campbell % (Auto) Eos % (Auto) Baso % (Auto) Absolute Neuts (auto) Absolute Lymphs (auto) Nucleated RBC % PT INR APTT Specimen Type Sample Site pH Bicarbonate Actual Total CO2 Base Excess O2 Saturation O2 % ABG pCO2 ABG pO2 Christofer Test Respiration Rate O2 Delivery Device Vent Mode Tidal Volume POC PEEP Sodium Potassium Chloride Carbon Dioxide Anion Gap BUN Creatinine Estim Creat Clear Calc Est GFR (MDRD) Af Amer Est GFR (MDRD) Non-Af BUN/Creatinine Ratio Glucose Lactic Acid 1.5 Calcium Magnesium Total Bilirubin Direct Bilirubin AST ALT Alkaline Phosphatase Troponin I < 0.015 Total Protein Albumin Globulin Triglycerides Cholesterol LDL Cholesterol VLDL Cholesterol HDL Cholesterol Urine Color Urine Clarity Urine pH Ur Specific [place] Urine Protein Urine Glucose (UA) Urine Ketones Urine Occult Blood Urine Nitrite Urine Bilirubin Urine Urobilinogen Ur Leukocyte Esterase Urine RBC Urine WBC Ur Squamous Epith Cells Urine Bacteria Urine Mucus MRSA (PCR) Negative POC Glucose 11/15/19 11/15/19 11/15/19 16:55 16:58 20:05 WBC RBC Hgb Hct MCV MCH MCHC RDW Std Deviation RDW Coeff of Fadumo Plt Count MPV Immature Gran % (Auto) Neut % (Auto) Lymph % (Auto) Campbell % (Auto) Eos % (Auto) Baso % (Auto) Absolute Neuts (auto) Absolute Lymphs (auto) Nucleated RBC % PT INR APTT Specimen Type Sample Site pH Bicarbonate Actual Total CO2 Base Excess O2 Saturation O2 % ABG pCO2 ABG pO2 Christofer Test Respiration Rate O2 Delivery Device Vent Mode Tidal Volume POC PEEP Sodium Potassium Chloride Carbon Dioxide Anion Gap BUN Creatinine Estim Creat Clear Calc Est GFR (MDRD) Af Amer Est GFR (MDRD) Non-Af BUN/Creatinine Ratio Glucose Lactic Acid Calcium Magnesium Total Bilirubin Direct Bilirubin AST ALT Alkaline Phosphatase Troponin I < 0.015 < 0.015 Total Protein Albumin Globulin Triglycerides Cholesterol LDL Cholesterol VLDL Cholesterol HDL Cholesterol Urine Color Urine Clarity Urine pH Ur Specific [place] Urine Protein Urine Glucose (UA) Urine Ketones Urine Occult Blood Urine Nitrite Urine Bilirubin Urine Urobilinogen Ur Leukocyte Esterase Urine RBC Urine WBC Ur Squamous Epith Cells Urine Bacteria Urine Mucus MRSA (PCR) POC Glucose 203 H 11/16/19 11/16/19 11/16/19 00:03 04:15 04:15 WBC 14.0 H RBC 3.81 L Hgb 10.5 L Hct 33.3 L MCV 87.4 MCH 27.6 MCHC 31.5 L RDW Std Deviation 54.0 H RDW Coeff of Fadumo 16.7 H Plt Count 239 MPV 10.9 Immature Gran % (Auto) 0.300 Neut % (Auto) 80.2 H Lymph % (Auto) 13.2 L Campbell % (Auto) 5.9 Eos % (Auto) 0.1 Baso % (Auto) 0.3 Absolute Neuts (auto) 11.2 H Absolute Lymphs (auto) 1.85 Nucleated RBC % 0 PT INR APTT Specimen Type Sample Site pH Bicarbonate Actual Total CO2 Base Excess O2 Saturation O2 % ABG pCO2 ABG pO2 Christofer Test Respiration Rate O2 Delivery Device Vent Mode Tidal Volume POC PEEP Sodium 140 Potassium 3.4 L Chloride 105 Carbon Dioxide 25.0 Anion Gap 10 BUN 27 H Creatinine 0.96 Estim Creat Clear Calc 41.89 Est GFR (MDRD) Af Amer 74 Est GFR (MDRD) Non-Af 61 BUN/Creatinine Ratio 28.2 H Glucose 238 H Lactic Acid Calcium 8.5 Magnesium 1.5 L Total Bilirubin 0.40 Direct Bilirubin 0.12 AST 22 ALT 12 L Alkaline Phosphatase 95 Troponin I Total Protein 6.8 Albumin 3.0 L Globulin 3.8 Triglycerides 190 Cholesterol 118 LDL Cholesterol 29 VLDL Cholesterol 38 HDL Cholesterol 51 Urine Color Urine Clarity Urine pH Ur Specific [place] Urine Protein Urine Glucose (UA) Urine Ketones Urine Occult Blood Urine Nitrite Urine Bilirubin Urine Urobilinogen Ur Leukocyte Esterase Urine RBC Urine WBC Ur Squamous Epith Cells Urine Bacteria Urine Mucus MRSA (PCR) POC Glucose 229 H 11/16/19 11/16/19 11/16/19 06:20 18:37 23:47 WBC RBC Hgb Hct MCV MCH MCHC RDW Std Deviation RDW Coeff of Fadumo Plt Count MPV Immature Gran % (Auto) Neut % (Auto) Lymph % (Auto) Campbell % (Auto) Eos % (Auto) Baso % (Auto) Absolute Neuts (auto) Absolute Lymphs (auto) Nucleated RBC % PT INR APTT Specimen Type Sample Site pH Bicarbonate Actual Total CO2 Base Excess O2 Saturation O2 % ABG pCO2 ABG pO2 Christofer Test Respiration Rate O2 Delivery Device Vent Mode Tidal Volume POC PEEP Sodium Potassium Chloride Carbon Dioxide Anion Gap BUN Creatinine Estim Creat Clear Calc Est GFR (MDRD) Af Amer Est GFR (MDRD) Non-Af BUN/Creatinine Ratio Glucose Lactic Acid Calcium Magnesium Total Bilirubin Direct Bilirubin AST ALT Alkaline Phosphatase Troponin I Total Protein Albumin Globulin Triglycerides Cholesterol LDL Cholesterol VLDL Cholesterol HDL Cholesterol Urine Color Urine Clarity Urine pH Ur Specific [place] Urine Protein Urine Glucose (UA) Urine Ketones Urine Occult Blood Urine Nitrite Urine Bilirubin Urine Urobilinogen Ur Leukocyte Esterase Urine RBC Urine WBC Ur Squamous Epith Cells Urine Bacteria Urine Mucus MRSA (PCR) POC Glucose 255 H 182 H 208 H 11/17/19 11/17/19 03:45 03:45 WBC 11.4 H RBC 3.78 L Hgb 10.4 L Hct 33.3 L MCV 88.1 MCH 27.5 MCHC 31.2 L RDW Std Deviation 54.2 H RDW Coeff of Fadumo 16.8 H Plt Count 259 MPV 11.5 Immature Gran % (Auto) 0.400 Neut % (Auto) 65.8 Lymph % (Auto) 27.2 Campbell % (Auto) 6.0 Eos % (Auto) 0.2 Baso % (Auto) 0.4 Absolute Neuts (auto) 7.5 Absolute Lymphs (auto) 3.09 Nucleated RBC % 0 PT INR APTT Specimen Type Sample Site pH Bicarbonate Actual Total CO2 Base Excess O2 Saturation O2 % ABG pCO2 ABG pO2 Christofer Test Respiration Rate O2 Delivery Device Vent Mode Tidal Volume POC PEEP Sodium 143 Potassium 3.1 L Chloride 108 H Carbon Dioxide 26.0 Anion Gap 9 BUN 30 H Creatinine 0.93 Estim Creat Clear Calc 43.25 Est GFR (MDRD) Af Amer 76 Est GFR (MDRD) Non-Af 63 BUN/Creatinine Ratio 32.3 H Glucose 276 H Lactic Acid Calcium 8.3 L Magnesium Total Bilirubin Direct Bilirubin AST ALT Alkaline Phosphatase Troponin I Total Protein Albumin Globulin Triglycerides Cholesterol LDL Cholesterol VLDL Cholesterol HDL Cholesterol Urine Color Urine Clarity Urine pH Ur Specific [place] Urine Protein Urine Glucose (UA) Urine Ketones Urine Occult Blood Urine Nitrite Urine Bilirubin Urine Urobilinogen Ur Leukocyte Esterase Urine RBC Urine WBC Ur Squamous Epith Cells Urine Bacteria Urine Mucus MRSA (PCR) POC Glucose Microbiology 11/15/19 Unknown Sputum, Induced/Lukens Gram Stain - Final 11/15/19 Unknown Sputum, Induced/Lukens Respiratory Culture - Preliminary Alpha hemolytic organism 11/15/19 14:20 Urine Catheter - Boyer Urine Culture - Preliminary Gram negative janett 11/15/19 14:20 Urine Catheter - [place] Legionella Antigen - Final 11/15/19 14:20 Urine Catheter - [place] Streptococcus pneumoniae Antigen (M - Final Clinical Impression(s) from Imaging Studies Brain CT 11/15/19 10:01 IMPRESSION: No acute intracranial abnormality. Electronically Signed: Edin Glasgow at 10:48 EDT Tel , Service support , ADDENDUM: 11/15/19 1206 Head/Neck CTA 11/15/19 10:02 IMPRESSION: Unremarkable CTA Head and neck with contrast. Electronically Signed: Edin Glasgow at 10:51 EDT Tel , Service support , ADDENDUM: 11/15/19 1205 Chest X-Ray 11/15/19 10:12 IMPRESSION: 1. Endotracheal and enteric tubes, as above. 2. Multilobar left pulmonary infiltrates particularly at the left lung base. Pneumonia and/or atelectasis suggested. Electronically Signed: Gerardo Flores MD ([place]) at 12:03 EDT , Service support , Brain MRI 11/16/19 06:31 IMPRESSION: Involutional changes of the brain, as described above. No acute infarct. Electronically Signed: Benjy Raphael MD at 13:36 EDT Tel , Service support , Medical Necessity - Tobacco Use Smoking Status: Never smoker Assessment/Plan All Active Problems Suspected cerebrovascular accident (CVA) (Acute) Aspiration pneumonia (Acute) Acute cystitis (Acute) Acute on recurrent syncope with collapse (Resolved) Acute on recurrent fall (Resolved) RECOMMENDATIONS: 1. Continue current supportive measures including invasive mechanical ventilatory support. 2. Wean FiO2 to maintain oxygen saturations at or above 90%. 3. Continue empiric antimicrobials. 4. Continue to withhold all sedating medications. 5. Obtain arterial blood gas, ammonia and TSH. 6. Obtain repeat, prolonged EEG this morning. Consider neurology follow-up after completion of EEG. 7. Continue tube feeds as tolerated along with appropriate ICU prophylaxis. IMPRESSIONS: 1. Acute Respiratory Failure Although the patient was not initially documented to be hypoxemic on arrival, she was unable to protect her airway and was subsequently intubated for airway protection. Further work-up including chest x-ray did reveal evidence of a left lower lobe airspace opacity concerning for possible pneumonia. The patient is currently on appropriate antimicrobials. Plan to continue current supportive measures including invasive mechanical ventilatory support with a goal to wean FiO2 to maintain oxygen saturations at or above 90%. 2. Encephalopathy Clinical suspicion for acute CVA versus seizure with post ictal state. The patient was last known well at 6 PM on November 13. She was noted to be outside of the window for TPA administration. Plan at this time will include holding all sedating medications. EEG and MRI brain will be obtained today. 3. Acute cystitis The patient did present with findings concerning for urinary tract source of infection as well. This may also have been contributing to the patient's altered mentation. Plan to continue antibiotics as ordered. Urine culture is pending. 4. Advanced age/diabetes mellitus/history of venous thrombosis/hyperlipidemia/GERD/neuropathy/depression/anxiety Complicates care, management, recovery and prognosis. Continue home medications as indicated. TIME: 36 minutes of critical care time, independent of procedures, was spent addressing the patient's acute respiratory failure, encephalopathy, questionable CVA, acute cystitis, review of all data and collaboration with the care team. [id number]) [id number] Critical care first hour
[2019-11-17] MEDS: Insulin Lispro 100 UNIT/ML INSULN.PEN SC ×3 (06:20→17:22)
[2019-11-17 07:15] LABS: Allen Test Positive; Base Excess 4 mmol/L (-2 to +2); Bicarbonate 27.1 mmol/L (22-26); Blood Gas Specimen Type ART; FI02 30; Mode AC; O2 Delivery Device Adult Vent; PO2 100 mmHG (75-100); SITE L Radial; SO2 98 % (95-99); Total Carbon Dioxide 28 mmol/L; Vt 450; pCO2 33.8 mmHg (35-45); pH 7.51 (7.35-7.45)
--- NOTE | 2019-11-17 07:23 | PCM.PN.HOSP ---
Patient Problems: Active and Suspected Problems Suspected cerebrovascular accident (CVA) (Acute) Aspiration pneumonia (Acute) Acute cystitis (Acute) Reason for Visit: Suspected CVA Subjective: Patient is a 74-year-old lady brought in unresponsive with a suspicion of acute CVA was made admitted to the intensive care unit after patient was intubated. Attempts at weaning patient event so far unsuccessful since patient goes apneic. EEG obtained the day prior was nonconclusive Objective: GENERAL:moves extremities spontaneously HEENT: Atraumatic; EYES; Anicteric, pupils nonreactive NECK; supple, normal thyroid, RESPIRATORY: Diminished to auscultation CARDIOVASCULAR: Regular S1 S2, GI: soft, normoactive bowel sounds, : Catheter in place EXTREMITIES: , no clubbing, MUSCULOSKELETAL: no muscle waisting NEURO: Patient obtunded SKIN: No Rash PSYCH; unable to assess Vitals/I&O's: Vital Signs Temp Pulse Resp BP Pulse Ox 99.8 F H 72 14 126/44 H 98 11/17/19 06:00 11/17/19 06:00 11/17/19 06:00 11/17/19 06:00 11/17/19 06:00 Oxygen Delivery Method Mechanical Ventilator Weight: 69.9 kg Body Mass Index (BMI) 27.5 Finger Stick Blood Glucose 69 Intake and Output for Last 24 Hours 11/15/19 11/16/19 11/17/19 23:59 23:59 23:59 Intake Total 670.25 / 670.25 550 / 550 350 / 350 Output Total 510 / 610 770 / 770 125 / 125 Balance 160.25 / 60.25 -220 / -220 225 / 225 Microbiology Past 72 Hours 11/15/19 Unknown Sputum, Induced/Lukens Gram Stain - Final 11/15/19 Unknown Sputum, Induced/Lukens Respiratory Culture - Preliminary Alpha hemolytic organism 11/15/19 14:20 Urine Catheter - Boyer Urine Culture - Preliminary Gram negative janett 11/15/19 14:20 Urine Catheter - [facility] Legionella Antigen - Final 11/15/19 14:20 Urine Catheter - [facility] Streptococcus pneumoniae Antigen (M - Final Laboratory Results 11/16/19 06:20: POC Glucose 255 H 11/16/19 18:37: POC Glucose 182 H 11/16/19 23:47: POC Glucose 208 H 11/17/19 03:45: WBC 11.4 H, RBC 3.78 L, Hgb 10.4 L, Hct 33.3 L, MCV 88.1, MCH 27.5, MCHC 31.2 L, RDW Std Deviation 54.2 H, RDW Coeff of Fadumo 16.8 H, Plt Count 259, MPV 11.5, Immature Gran % (Auto) 0.400, Neut % (Auto) 65.8, Lymph % (Auto) 27.2, [place] % (Auto) 6.0, Eos % (Auto) 0.2, Baso % (Auto) 0.4, Absolute Neuts (auto) 7.5, Absolute Lymphs (auto) 3.09, Nucleated RBC % 0 11/17/19 03:45: Sodium 143, Potassium 3.1 L, Chloride 108 H, Carbon Dioxide 26.0, Anion Gap 9, BUN 30 H, Creatinine 0.93, Estim Creat Clear Calc 43.25, Est GFR (MDRD) Af Amer 76, Est GFR (MDRD) Non-Af 63, BUN/Creatinine Ratio 32.3 H, Glucose 276 H, Calcium 8.3 L 11/17/19 07:00: TSH Pending 11/17/19 07:00: Ammonia Pending 11/17/19 07:07: Specimen Type ART, Sample Site L Radial, pH 7.51 H, Bicarbonate Actual 27.1 H, Total CO2 28, Base Excess 4 H, O2 Saturation 98, O2 % 30, ABG pCO2 33.8 L, ABG pO2 100, Christofer Test Positive, Respiration Rate 14.0000, O2 Delivery Device Adult Vent, Vent Mode AC, Tidal Volume 450, POC PEEP 5.0000 Current Medications Acetaminophen (Tylenol) 650 mg RECTAL Q4H PRN PRN PRN Reason: Pain Score 1-10/Temp > 100.7 F Albuterol Sulfate (Ventolin Aerosols) 2.5 mg INHALATION Q2H PRN PRN PRN Reason: SOB/Wheezing Aspirin (Aspirin) 300 mg RECTAL DAILY [facility] Last Admin: 11/16/19 10:45 Dose: 300 mg Documented by: Chlorhexidine Gluconate () 15 ml PO BID [facility] Last Admin: 11/16/19 21:45 Dose: 15 ml Documented by: Dextrose (D50w Syringe) 0 gm IV X1 PRN; Protocol PRN Reason: Hypoglycemia Enoxaparin Sodium (Lovenox) 40 mg SC DAILY [facility] Last Admin: 11/16/19 08:55 Dose: 40 mg Documented by: Famotidine (Pepcid) 20 mg PO BID [facility] Last Admin: 11/16/19 22:15 Dose: 20 mg Documented by: Glucagon () 1 mg IM .X1 PRN PRN Reason: Hypoglycemia Hydralazine HCl (Apresoline Iv) 5 mg IV Q30M PRN PRN Reason: to maintain BP goals Piperacillin Sod/Tazobactam (Sod 3.375 gm/ Sodium Chloride) 50 mls @ 12.5 mls/hr IV Q8 [facility] Last Admin: 11/17/19 05:11 Dose: 12.5 mls/hr Documented by: Sodium Chloride () 250 mls @ 15 mls/hr IV .[id number] PRN PRN Reason: Saline Flush Sodium Chloride () 250 mls @ 15 mls/hr IV .[id number] PRN PRN Reason: Additional IVPB Infusion Levetiracetam () 1,000 mg in 100 mls @ 400 mls/hr IV Q12 [facility] Last Infusion: 11/16/19 22:38 Dose: Infused Documented by: Enteral Nutritional Formula (Vital Af 1.2 Fox Liquid) 1,000 mls @ 60 mls/hr GT .[id number] [facility] Last Admin: 11/17/19 03:00 Dose: 60 mls/hr Documented by: Potassium Chloride () 10 meq in 100 mls @ 100 mls/hr IV BOLUS Q1H [facility] Stop: 11/17/19 10:44 Insulin Glargine (Lantus (Bk)) 10 units SC DAILY [facility] Last Admin: 11/16/19 12:03 Dose: 10 u Documented by: Insulin Human Lispro (Humalog Kwikpen ([facility])) 0 unit SC Q6 [facility]; Protocol Last Admin: 11/17/19 06:20 Dose: 2 u Documented by: Labetalol HCl (Trandate) 10 - 20 mg IV Q10M PRN PRN PRN Reason: to Maintain BP Goals Ondansetron HCl (Zofran) 4 mg IV Q8H PRN PRN PRN Reason: NAUSEA/VOMITING Sodium Chloride () 10 - 40 ml IV UD PRN PRN Reason: SALINE FLUSH Last Admin: 11/16/19 23:50 Dose: 10 ml Documented by: STROKE Vital Signs/Narrative: Vital Signs Temp Pulse Resp BP BP Pulse Ox 11/17/19 06:00 99.8 F H 72 14 126/44 H 98 11/17/19 05:38 105 H 16 97 11/17/19 05:00 94 15 154/69 H 99 11/17/19 04:00 99.8 F H 64 14 114/38 L 98 11/17/19 03:55 104 H Medical Necessity - Tobacco Use Smoking Status: Never smoker Assessment/Plan All Active Problems Suspected cerebrovascular accident (CVA) (Acute) Aspiration pneumonia (Acute) Acute cystitis (Acute) Acute on recurrent syncope with collapse (Resolved) Acute on recurrent fall (Resolved) Patient is a 74-year-old lady brought in unresponsive with a suspicion of acute CVA was made admitted to the intensive care unit after patient was intubated 1. Acute encephalopathy ?With high suspicion for acute ischemic CVA. Patient was deemed not to TPA candidate since last known to be well over 15 hours. Patient started on antiplatelet therapy with aspirin per rectum admitted to the intensive care unit. Plan is for patient to undergo subsequent evaluation with a 2D echo and MRI if patient is weaned from the vent ?11/16/2019 patient remains on the vent without any sedation per recommendations from neurology. She is able to move all extremities plan is for patient to undergo EEG and MRI. Prior to making further decision 2. Acute hypoxic respiratory failure ?Patient was found to be saturating around 88% when first brought to the ED was intubated. Patient admitted to the intensive care unit consult placed to pulmonary medicine for vent management 3. Aspiration pneumonia ?. Patient intubated as stated above started on Unasyn and Levaquin after cultures were sent 4. Acute cystitis ?Patient is on antibiotics as discussed above plan is adjust antibiotic therapy based on culture result 5. Diabetes mellitus type 2 ?Held patient home regimen please on Accu-Cheks Accu-Cheks every 6 with sliding scale coverage 6. Previous history of DVT ?Patient completed anticoagulation therapy 7. 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 Peripheral arterial disease ?Antiplatelet therapy with aspirin at home 9. Dyslipidemia -patient is on rosuvastatin at home 10. GERD ?On PPI at home 11. Diabetic polyneuropathy ?Patient is on gabapentin at home 12. Depression with anxiety - She is on Effexor at home 13. DVT prophylaxis - On enoxaparin Inpatient E&M: 19870 Subs Hosp L3
[2019-11-17] MEDS: Potassium Chloride 10mEq/100mL 10 MEQ/100 ML IV.SOLN. 100 MEQ IV BOLUS ×4 (07:37→10:26)
[2019-11-17 07:40] LABS: Thyroid Stim Hormone (TSH) 1.53 uIU/mL (0.358-3.74)
[2019-11-17] MEDS: Chlorhexidine 15 ML PO (09:20)
[2019-11-17] MEDS: Aspirin 300 MG Suppository RECTAL (09:21)
[2019-11-17] MEDS: Enoxaparin 40 MG/0.4 ML Syringe SC (09:21)
[2019-11-17] MEDS: Famotidine 20 MG Tablet PO (09:21)
[2019-11-17] MEDS: levETIRAcetam IV 1,000 MG/100 ML BAG 400 MG IV ×2 (10:04→22:00)
--- NOTE | 2019-11-17 10:10 | CASEMGMT ---
Insurance review for hospitals In-network with [facility] Insurance if transfer is recommended is as follows: [facility], Ahsan, CC, [facility], [facility], [facility], [facility] and . Emilia BSN RN CM
--- NOTE | 2019-11-17 10:50 | CPS ---
Patient switched to CPAP per Dr. Sanders at 1050.
[2019-11-17 12:21] LABS: Bedside Glucose 182 mg/dL (70-110)
--- NOTE | 2019-11-17 13:30 | CPS ---
PATIENT FAILED SBT DUE TO NIF, RSBI,ALSO NOT FULLY AWAKE
--- NOTE | 2019-11-17 15:45 | DS.PCM_ITS ---
Discharge Date and Diagnosis - Problem List Patient Problems: Active and Suspected Problems Suspected cerebrovascular accident (CVA) (Acute) Aspiration pneumonia (Acute) Acute cystitis (Acute) Date of Admission: 11/15/19 Date of Discharge: 11/17/19 - Primary Discharge Diagnosis Acute Problems: Active Problems Suspected cerebrovascular accident (CVA) (Acute) Aspiration pneumonia (Acute) Acute cystitis (Acute) - Secondary Discharge Diagnosis Chronic Problems: Chronic Problems Peripheral vascular disease (Chronic) History of DVT (deep vein thrombosis) (Chronic) 1982 basal ganglion bleed, history of (Chronic) Hyperlipidemia (Chronic) Type 2 diabetes mellitus (Chronic) History of CVA (cerebrovascular accident) (Chronic) Anxiety disorder (Chronic) Hospital Course and Treatment Imaging Results: Clinical Impression(s) from Imaging Studies Brain CT 11/15/19 10:01 IMPRESSION: No acute intracranial abnormality. Electronically Signed: Edin Glasgow at 10:48 EDT Tel , Service support , ADDENDUM: 11/15/19 1206 Head/Neck CTA 11/15/19 10:02 IMPRESSION: Unremarkable CTA Head and neck with contrast. Electronically Signed: Edin Glasgow at 10:51 EDT Tel , Service support , ADDENDUM: 11/15/19 1205 Chest X-Ray 11/15/19 10:12 IMPRESSION: 1. Endotracheal and enteric tubes, as above. 2. Multilobar left pulmonary infiltrates particularly at the left lung base. Pneumonia and/or atelectasis suggested. Electronically Signed: Gerardo Flores MD ([place]) at 12:03 EDT , Service support , Brain MRI 11/16/19 06:31 IMPRESSION: Involutional changes of the brain, as described above. No acute infarct. Electronically Signed: Benjy Raphael MD at 13:36 EDT Tel , Service support , Operations: None Summary of Care Provided: Patient is a 74-year-old lady brought in unresponsive with a suspicion of acute CVA was made admitted to the intensive care unit after patient was intubated 1. Acute encephalopathy suspected to be secondary to seizures ?There was an initial high suspicion for acute ischemic CVA. Patient was deemed not to TPA candidate since last known to be well over 15 hours. Patient started on antiplatelet therapy with aspirin per rectum admitted to the intensive care unit. Subsequent MRI however did not demonstrate any ischemic CVA. EEG obtained demonstrated an abnormal activity involving the frontal lobe. It was felt patient was experiencing status epilepticus. With nonavailability of 24- hour EEG [facility] decision was made after discussing with consulting physicians on the case as well as family to have patient be transferred to a tertiary care center for subsequent management patient was started on Keppra prior to being transferred 2. Acute hypoxic respiratory failure ?Patient was found to be saturating around 88% when first brought to the ED was intubated. Patient admitted to the intensive care unit consult placed to pulmonary medicine for vent management 3. Aspiration pneumonia ?. Patient intubated as stated above started on Unasyn and Levaquin after cultures were sent 4. Acute cystitis ?Patient is on antibiotics as discussed above plan is adjust antibiotic therapy based on culture result 5. Diabetes mellitus type 2 ?Held patient home regimen please on Accu-Cheks Accu-Cheks every 6 with sliding scale coverage 6. Previous history of DVT ?Patient completed anticoagulation therapy 7. 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 Peripheral arterial disease ?Antiplatelet therapy with aspirin at home 9. Dyslipidemia -patient is on rosuvastatin at home 10. GERD ?On PPI at home 11. Diabetic polyneuropathy ?Patient is on gabapentin at home 12. Depression with anxiety - She is on Effexor at home 13. DVT prophylaxis - On enoxaparin Patient Problems: Active and Suspected Problems Suspected cerebrovascular accident (CVA) (Acute) Aspiration pneumonia (Acute) Acute cystitis (Acute) Objective: GENERAL:moves extremities spontaneously HEENT: Atraumatic; EYES; Anicteric, pupils nonreactive NECK; supple, normal thyroid, RESPIRATORY: Diminished to auscultation CARDIOVASCULAR: Regular S1 S2, GI: soft, normoactive bowel sounds, : Catheter in place EXTREMITIES: , no clubbing, MUSCULOSKELETAL: no muscle waisting NEURO: Patient obtunded SKIN: No Rash PSYCH; unable to assess - Physical Exam Vitals/I&O's: Vital Signs Temp Pulse Resp BP Pulse Ox 99.4 F H 117 H 16 148/62 H 95 11/17/19 14:00 11/17/19 15:07 11/17/19 15:00 11/17/19 15:00 11/17/19 15:00 Oxygen Delivery Method Mechanical Ventilator Weight: 69.9 kg Body Mass Index (BMI) 27.5 Finger Stick Blood Glucose 69 Intake and Output for Last 24 Hours 11/15/19 11/16/19 11/17/19 23:59 23:59 23:59 Intake Total 670.25 / 670.25 550 / 550 1186.67 / 1186.67 Output Total 510 / 610 770 / 770 565 / 565 Balance 160.25 / 60.25 -220 / -220 621.67 / 621.67 Microbiology Past 72 Hours 11/15/19 14:20 Urine Catheter - Boyer Urine Culture - Preliminary Gram negative janett GPC Poss Enterococcus sp 11/15/19 Unknown Sputum, Induced/Lukens Gram Stain - Final 11/15/19 Unknown Sputum, Induced/Lukens Respiratory Culture - Preliminary Alpha hemolytic organism Presumptive C albicans 11/15/19 13:55 Blood Culture (Wb) - Anticubital Left Blood Culture - Preliminary No growth in 48 hours. 11/15/19 14:20 Urine Catheter - Boyer Legionella Antigen - Final 11/15/19 14:20 Urine Catheter - [facility]er Streptococcus pneumoniae Antigen (M - Final Laboratory Results 11/16/19 18:37: POC Glucose 182 H 11/16/19 23:47: POC Glucose 208 H 11/17/19 03:45: WBC 11.4 H, RBC 3.78 L, Hgb 10.4 L, Hct 33.3 L, MCV 88.1, MCH 27.5, MCHC 31.2 L, RDW Std Deviation 54.2 H, RDW Coeff of Fadumo 16.8 H, Plt Count 259, MPV 11.5, Immature Gran % (Auto) 0.400, Neut % (Auto) 65.8, Lymph % (Auto) 27.2, Heard % (Auto) 6.0, Eos % (Auto) 0.2, Baso % (Auto) 0.4, Absolute Neuts (auto) 7.5, Absolute Lymphs (auto) 3.09, Nucleated RBC % 0 11/17/19 03:45: Sodium 143, Potassium 3.1 L, Chloride 108 H, Carbon Dioxide 26.0, Anion Gap 9, BUN 30 H, Creatinine 0.93, Estim Creat Clear Calc 43.25, Est GFR (MDRD) Af Amer 76, Est GFR (MDRD) Non-Af 63, BUN/Creatinine Ratio 32.3 H, Glucose 276 H, Calcium 8.3 L 11/17/19 07:00: TSH 1.53 11/17/19 07:00: Ammonia 21.0 11/17/19 07:07: Specimen Type ART, Sample Site L Radial, pH 7.51 H, Bicarbonate Actual 27.1 H, Total CO2 28, Base Excess 4 H, O2 Saturation 98, O2 % 30, ABG pCO2 33.8 L, ABG pO2 100, Christofer Test Positive, Respiration Rate 14.0000, O2 Delivery Device Adult Vent, Vent Mode AC, Tidal Volume 450, POC PEEP 5.0000 11/17/19 12:01: POC Glucose 182 H 11/17/19 15:37: COVID-19 (KAREN) Pending Current Medications Acetaminophen (Tylenol) 650 mg RECTAL Q4H PRN PRN PRN Reason: Pain Score 1-10/Temp > 100.7 F Albuterol Sulfate (Ventolin Aerosols) 2.5 mg INHALATION Q2H PRN PRN PRN Reason: SOB/Wheezing Aspirin (Aspirin) 300 mg RECTAL DAILY [facility] Last Admin: 11/17/19 09:21 Dose: 300 mg Documented by: Chlorhexidine Gluconate () 15 ml PO BID [facility] Last Admin: 11/17/19 09:20 Dose: 15 ml Documented by: Dextrose (D50w Syringe) 0 gm IV X1 PRN; Protocol PRN Reason: Hypoglycemia Enoxaparin Sodium (Lovenox) 40 mg SC DAILY [facility] Last Admin: 11/17/19 09:21 Dose: 40 mg Documented by: Famotidine (Pepcid) 20 mg PO BID [facility] Last Admin: 11/17/19 09:21 Dose: 20 mg Documented by: Glucagon () 1 mg IM .X1 PRN PRN Reason: Hypoglycemia Hydralazine HCl (Apresoline Iv) 5 mg IV Q30M PRN PRN Reason: to maintain BP goals Piperacillin Sod/Tazobactam (Sod 3.375 gm/ Sodium Chloride) 50 mls @ 12.5 mls/hr IV Q8 [facility] Last Admin: 11/17/19 12:47 Dose: 12.5 mls/hr Documented by: Sodium Chloride () 250 mls @ 15 mls/hr IV .[id number] PRN PRN Reason: Saline Flush Sodium Chloride () 250 mls @ 15 mls/hr IV .[id number] PRN PRN Reason: Additional IVPB Infusion Levetiracetam () 1,000 mg in 100 mls @ 400 mls/hr IV Q12 [facility] Last Infusion: 11/17/19 10:28 Dose: Infused Documented by: Enteral Nutritional Formula (Vital Af 1.2 Fox Liquid) 1,000 mls @ 60 mls/hr GT .[id number] [facility] Last Admin: 11/17/19 03:00 Dose: 60 mls/hr Documented by: Insulin Glargine (Lantus (Bk)) 10 units SC DAILY [facility] Last Admin: 11/17/19 09:20 Dose: 10 u Documented by: Insulin Human Lispro (Humalog Kwikpen ([facility])) 0 unit SC Q6 [facility]; Protocol Last Admin: 11/17/19 12:20 Dose: 1 u Documented by: Labetalol HCl (Trandate) 10 - 20 mg IV Q10M PRN PRN PRN Reason: to Maintain BP Goals Ondansetron HCl (Zofran) 4 mg IV Q8H PRN PRN PRN Reason: NAUSEA/VOMITING Sodium Chloride () 10 - 40 ml IV UD PRN PRN Reason: SALINE FLUSH Last Admin: 11/16/19 23:50 Dose: 10 ml Documented by: Home Medications: Medications to take at Discharge Aspirin [Aspirin, Baby] 81 mg PO DAILY@0800 03/09/13 Gabapentin [Neurontin] 100 mg PO TID 03/09/13 Metformin HCl [Glucophage] 1,000 mg PO BID 03/09/13 Pioglitazone [Actos] 45 mg PO DAILY 03/09/13 Clonazepam 0.5 mg PO BID PRN PRN 10/19/13 Omeprazole [Prilosec] 20 mg PO BID 10/19/13 Venlafaxine HCl [Effexor] 75 mg PO BID 10/19/13 Albuterol Inhaler [Ventolin Hfa] 1 puff INHALATION Q4H PRN PRN 01/03/14 Olanzapine [Zyprexa] 5 mg PO QHS 01/03/14 Insulin Glargine [Lantus SoloStar Pen] 65 units SC QHS 05/15/14 Cholecalciferol (VIT D3) [Vitamin D3] 1,000 mg PO DAILY 01/06/17 Rosuvastatin Calcium [Crestor] 20 mg PO QHS 01/06/17 Calcium Carbonate 500 mg PO BID 11/16/18 Hydrocortisone 2.5% Crm [Hytone] 1 applic TOPICAL BID 11/16/18 Insulin Lispro [Humalog KwikPen] 6 unit SQ TIDCM 11/16/18 Memantine HCl 5 mg PO BID 11/16/18 Acetaminophen [Tylenol Extra Strength] 1,000 mg PO Q8H PRN PRN #20 tab 11/18/18 Insulin Lispro [Humalog KwikPen] 8 unit SQ DINNER 11/15/19 Primary Care Physician: Jh Hewitt MD [Primary Care Provider] - Disposition: Acute care Hospital Minutes spent on discharge:: 35 Patient Condition:: Stable Medical Necessity - Tobacco Use Smoking Status: Never smoker Meaningful Use Info Meaningful Use Diagnoses (Choose all that apply): None applicable Inpatient E&M: 99292 Disch Hosp
--- NOTE | 2019-11-17 17:16 | CASEMGMT ---
Social work SW spoke with Mya Das CM at [facility] and provided update on pt. Pt to transfer to tertiary facility. D/C summary faxed to [facility]. YULISSA Ingram
[2019-11-17 17:26] LABS: Bedside Glucose 238 mg/dL (70-110)
[2019-11-18] VITALS (28 sets, daily range): BP systolic 108–162; BP diastolic 39–79; PULSE 56–113; RESP 12–31; TEMP 37.3–37.8; O2SAT 93–100; BMI 27.5
[2019-11-18] MEDS: Famotidine 20 MG Tablet PO (00:18)
[2019-11-18] MEDS: Chlorhexidine 15 ML PO (00:18)
[2019-11-18] MEDS: Insulin Lispro 100 UNIT/ML INSULN.PEN SC ×4 (00:19→18:45)
[2019-11-18] MEDS: Vital AF 1.2 Cal Liquid 1,000 ML 60 ML GT (00:27)
[2019-11-18 00:36] LABS: Bedside Glucose 245 mg/dL (70-110)
[2019-11-18 05:40] LABS: Bedside Glucose 244 mg/dL (70-110)
[2019-11-18 06:01] LABS: Absolute Lymphocyte Count 2.42 X10^3/uL (0.83-4.51); Absolute Neutrophil Count 7.7 X10^3/uL (2.0-7.7); Basophil# 0.04 X10^3/uL; Basophil% 0.4 % (0-1); Eosinophil# 0.09 X10^3/uL; Eosinophils% 0.8 % (0-5); Hematocrit 34.6 % (37-47); Hemoglobin 10.8 g/dL (12.0-15.0); Lymphocyte # 2.42 X10^3/ul (4.0); Lymphocyte % 22.1 % (19-41); Mean Corp Hgb Conc 31.2 g/dL (32-36); Mean Corpuscular Hgb 27.8 pg (27.0-32.0); Mean Corpuscular Volume 89.2 fL (81-99); Mean Platelet Vol. 11.4 fl (6.2-12.0); Monocyte% 6.4 % (0-10); NRBC Flagged by Analyzer 0 % (0-5); Neutrophil # 7.66 X10^3/uL (2.7-7.7); Neutrophil % 69.8 % (47-70); Platelet Count 273 K/mm3 (150-450); RBC Distribution Width CV 16.7 % (11.6-14.6); RBC Distribution Width SD 54.8 fl (35.1-43.9); Red Blood Count 3.88 M/mm3 (4.2-5.4)
[2019-11-18 06:07] LABS: Anion Gap 7 (5-15); BUN 22 mg/dL (7-18); BUN/Creat Ratio 32.7 RATIO (10-20); Calcium,Total 8.7 mg/dL (8.5-10.1); Chloride 108 mmol/L (98-107); Creatinine, Serum 0.67 mg/dL (0.55-1.02); EST Glomerular Filtration Rate 92 mL/min (>60); Est Glom Filt Rate - Afr Amer 111 mL/min (>60); Estimated Creatinine Clearance 40.22 ml/min; Glucose 237 mg/dL (74-106); Potassium 3.8 mmol/L (3.5-5.1); Sodium Level 141 mmol/L (136-145)
--- NOTE | 2019-11-18 07:06 | PN_ITS ---
Patient Problems: Active and Suspected Problems Suspected cerebrovascular accident (CVA) (Acute) Aspiration pneumonia (Acute) Acute cystitis (Acute) Reason for Visit: Acute encephalopathy Subjective: Was for patient to have been transferred to [facility] for continuous EEG monitoring Patient was successfully extubated this a.m. Did discuss with pulmonary medicine as well as patient son plan to transfer patient to [facility] subsequently discontinued Objective: GENERAL: Patient quite lethargic but answers questions appropriately and follows commands HEENT: Atraumatic; EYES; Anicteric, pupils nonreactive NECK; supple, normal thyroid, RESPIRATORY: Diminished to auscultation CARDIOVASCULAR: Regular S1 S2, GI: soft, normoactive bowel sounds, : Catheter in place EXTREMITIES: , no clubbing, MUSCULOSKELETAL: no muscle waisting NEURO: No lateralizing signs SKIN: No Rash PSYCH; unable to assess Vitals/I&O's: Vital Signs Temp Pulse Resp BP Pulse Ox 99.7 F H 103 H 21 H 161/65 H 96 11/18/19 06:00 11/18/19 06:00 11/18/19 06:00 11/18/19 06:00 11/18/19 06:00 Oxygen Delivery Method Mechanical Ventilator Weight: 70.2 kg Body Mass Index (BMI) 27.5 Finger Stick Blood Glucose 69 Intake and Output for Last 24 Hours 11/16/19 11/17/19 11/18/19 23:59 23:59 23:59 Intake Total 550 / 550 1536.67 / 1636.67 250 / 250 Output Total 770 / 770 1015 / 1015 860 / 860 Balance -220 / -220 521.67 / 621.67 -610 / -610 Microbiology Past 72 Hours 11/15/19 14:20 Urine Catheter - Boyer Urine Culture - Preliminary Gram negative janett GPC Poss Enterococcus sp 11/15/19 Unknown Sputum, Induced/Lukens Gram Stain - Final 11/15/19 Unknown Sputum, Induced/Lukens Respiratory Culture - Preliminary Alpha hemolytic organism Presumptive C albicans 11/15/19 13:55 Blood Culture (Wb) - Anticubital Left Blood Culture - Preliminary No growth in 48 hours. 11/15/19 14:20 Urine Catheter - Boyer Legionella Antigen - Final 11/15/19 14:20 Urine Catheter - Boyer Streptococcus pneumoniae Antigen (M - Final Laboratory Results 11/17/19 07:00: TSH 1.53 11/17/19 07:00: Ammonia 21.0 11/17/19 07:07: Specimen Type ART, Sample Site L Radial, pH 7.51 H, Bicarbonate Actual 27.1 H, Total CO2 28, Base Excess 4 H, O2 Saturation 98, O2 % 30, ABG pCO2 33.8 L, ABG pO2 100, Christofer Test Positive, Respiration Rate 14.0000, O2 Delivery Device Adult Vent, Vent Mode AC, Tidal Volume 450, POC PEEP 5.0000 11/17/19 12:01: POC Glucose 182 H 11/17/19 15:37: COVID-19 (KAREN) Not Detected 11/17/19 17:20: POC Glucose 238 H 11/18/19 00:15: POC Glucose 245 H 11/18/19 05:27: POC Glucose 244 H 11/18/19 05:30: WBC 11.0, RBC 3.88 L, Hgb 10.8 L, Hct 34.6 L, MCV 89.2, MCH 27.8, MCHC 31.2 L, RDW Std Deviation 54.8 H, RDW Coeff of Fadumo 16.7 H, Plt Count 273, MPV 11.4, Immature Gran % (Auto) 0.500, Neut % (Auto) 69.8, Lymph % (Auto) 22.1, [place] % (Auto) 6.4, Eos % (Auto) 0.8, Baso % (Auto) 0.4, Absolute Neuts (auto) 7.7, Absolute Lymphs (auto) 2.42, Nucleated RBC % 0 11/18/19 05:30: Sodium 141, Potassium 3.8, Chloride 108 H, Carbon Dioxide 26.0, Anion Gap 7, BUN 22 H, Creatinine 0.67, Estim Creat Clear Calc 40.22, Est GFR (MDRD) Af Amer 111, Est GFR (MDRD) Non-Af 92, BUN/Creatinine Ratio 32.7 H, Glucose 237 H, Calcium 8.7 Current Medications Acetaminophen (Tylenol) 650 mg RECTAL Q4H PRN PRN PRN Reason: Pain Score 1-10/Temp > 100.7 F Albuterol Sulfate (Ventolin Aerosols) 2.5 mg INHALATION Q2H PRN PRN PRN Reason: SOB/Wheezing Aspirin (Aspirin) 300 mg RECTAL DAILY JOCELINE Last Admin: 11/17/19 09:21 Dose: 300 mg Documented by: Chlorhexidine Gluconate () 15 ml PO BID [facility] Last Admin: 11/18/19 00:18 Dose: 15 ml Documented by: Dextrose (D50w Syringe) 0 gm IV X1 PRN; Protocol PRN Reason: Hypoglycemia Enoxaparin Sodium (Lovenox) 40 mg SC DAILY [facility] Last Admin: 11/17/19 09:21 Dose: 40 mg Documented by: Famotidine (Pepcid) 20 mg PO BID [facility] Last Admin: 11/18/19 00:18 Dose: 20 mg Documented by: Glucagon () 1 mg IM .X1 PRN PRN Reason: Hypoglycemia Hydralazine HCl (Apresoline Iv) 5 mg IV Q30M PRN PRN Reason: to maintain BP goals Piperacillin Sod/Tazobactam (Sod 3.375 gm/ Sodium Chloride) 50 mls @ 12.5 mls/hr IV Q8 [facility] Last Admin: 11/18/19 05:30 Dose: 12.5 mls/hr Documented by: Sodium Chloride () 250 mls @ 15 mls/hr IV .[id number] PRN PRN Reason: Saline Flush Sodium Chloride () 250 mls @ 15 mls/hr IV .[id number] PRN PRN Reason: Additional IVPB Infusion Levetiracetam () 1,000 mg in 100 mls @ 400 mls/hr IV Q12 [facility] Last Infusion: 11/17/19 22:20 Dose: Infused Documented by: Enteral Nutritional Formula (Vital Af 1.2 Fox Liquid) 1,000 mls @ 60 mls/hr GT .[id number] [facility] Last Admin: 11/18/19 00:27 Dose: 60 mls/hr Documented by: Insulin Glargine (Lantus (Bk)) 10 units SC DAILY [facility] Last Admin: 11/17/19 09:20 Dose: 10 u Documented by: Insulin Human Lispro (Humalog Kwikpen ([facility])) 0 unit SC Q6 [facility]; Protocol Last Admin: 11/18/19 05:31 Dose: 2 u Documented by: Labetalol HCl (Trandate) 10 - 20 mg IV Q10M PRN PRN PRN Reason: to Maintain BP Goals Ondansetron HCl (Zofran) 4 mg IV Q8H PRN PRN PRN Reason: NAUSEA/VOMITING Sodium Chloride () 10 - 40 ml IV UD PRN PRN Reason: SALINE FLUSH Last Admin: 11/16/19 23:50 Dose: 10 ml Documented by: STROKE Vital Signs/Narrative: Vital Signs Temp Pulse Resp BP Pulse Ox 11/18/19 06:00 99.7 F H 103 H 21 H 161/65 H 96 11/18/19 05:03 96 19 H 99 11/18/19 05:00 99.8 F H 98 15 125/65 H 100 11/18/19 04:00 99.8 F H 96 12 113/58 L 99 Medical Necessity - Tobacco Use Smoking Status: Never smoker Assessment/Plan All Active Problems Suspected cerebrovascular accident (CVA) (Acute) Aspiration pneumonia (Acute) Acute cystitis (Acute) Acute on recurrent syncope with collapse (Resolved) Acute on recurrent fall (Resolved) Patient is a 74-year-old lady brought in unresponsive with a suspicion of acute CVA was made admitted to the intensive care unit after patient was intubated 1. Acute encephalopathy suspected to be secondary to seizures ?There was an initial high suspicion for acute ischemic CVA. Patient was deemed not to TPA candidate since last known to be well over 15 hours. Patient started on antiplatelet therapy with aspirin per rectum admitted to the intensive care unit. Subsequent MRI however did not demonstrate any ischemic CVA. EEG obtained demonstrated an abnormal activity involving the frontal lobe. It was felt patient was experiencing status epilepticus. With nonavailability of 24- hour EEG [facility] decision was made after discussing with consulting physicians on the case as well as family to have patient be transferred to a tertiary care center for subsequent management patient was started on Keppra prior to being transferred -11/18/2019. Patient was successfully weaned off the vent this AM. Plan to transfer patient to [facility] subsequently discontinued 2. Acute hypoxic respiratory failure ?Patient was found to be saturating around 88% when first brought to the ED was intubated. Patient admitted to the intensive care unit consult placed to pulmonary medicine for vent management 3. Aspiration pneumonia ?. Patient intubated as stated above started on Unasyn and Levaquin after cultures were sent -11/18/2019: Successfully weaned off the vent -Sputum cultures came back positive for Streptococcus pneumoniae. Patient on appropriate antibiotics 4. Acute cystitis with Enterococcus faecalis ?Patient is on antibiotics as discussed above plan is adjust antibiotic therapy based on culture result -Urine cultures came back positive for Enterococcus faecalis 5. Diabetes mellitus type 2 ?Held patient home regimen please on Accu-Cheks Accu-Cheks every 6 with sliding scale coverage 6. Previous history of DVT ?Patient completed anticoagulation therapy 7. 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 Peripheral arterial disease ?Antiplatelet therapy with aspirin at home 9. Dyslipidemia -patient is on rosuvastatin at home 10. GERD ?On PPI at home 11. Diabetic polyneuropathy ?Patient is on gabapentin at home 12. Depression with anxiety - She is on Effexor at home 13. DVT prophylaxis - On enoxaparin Inpatient E&M: [id number] [facility] L3
--- NOTE | 2019-11-18 07:09 | PCM.PN.INT ---
Subjective: The patient was seen and examined at the bedside this morning. Events from the last 24 hours have been reviewed. The patient is currently afebrile, hemodynamically stable and maintaining appropriate oxygen saturations on spontaneous mode of mechanical ventilation with an FiO2 requirement of 30%. The patient did well overnight without any seizure-like activity. This morning, the patient was alert to verbal cues and able to follow simple commands. She did well with her spontaneous breathing trial. Secretions are minimal. Objective: The patient's most recent lab work, culture data and imaging studies have all been personally reviewed. Surface echocardiogram revealed normal LV size with an ejection fraction of 70%. Pulmonary artery systolic pressure was estimated to be 30 mmHg. Brain MRI revealed involutional changes of the brain without acute infarction. Strep and urine Legionella antigens were negative. General: - - Remains intubated and mechanically ventilated. Currently tolerating spontaneous mode of mechanical ventilation without issue. HEENT: Atraumatic, Normocephalic Oral: No Gingival or Mucosal Lesions/ Ulcerations, - - Endotracheal and OG tubes remain in place Neck: Supple, No Nodes, Trachea Midline Lungs: No rhonchi, No wheeze, No rales, Diminished Cardiovascular: Regular rate, Regular Rhythm, Normal S1, Normal S2 Abdomen: Bowel Sounds Present, Soft, Non Tender Extremities: No clubbing, No cyanosis, No edema Skin: No breakdown Musculoskeletal: No Tenderness to Palpation of Joints or Extremities Lymphatic: No Cervical, Supraclavicular, or Inguinal Adenopathy Neurological: - - No focal neurological deficits. The patient is able to open her eyes and follow simple commands. Vital Signs Temp Pulse Resp BP Pulse Ox 99.7 F H 103 H 21 H 161/65 H 96 11/18/19 06:00 11/18/19 06:00 11/18/19 06:00 11/18/19 06:00 11/18/19 06:00 Oxygen Delivery Method Mechanical Ventilator Weight: 154 lb 12.232 oz Body Mass Index (BMI) 27.5 Finger Stick Blood Glucose 69 Intake and Output for Last 24 Hours 11/16/19 11/17/19 11/18/19 23:59 23:59 23:59 Intake Total 550 / 550 1536.67 / 1636.67 250 / 250 Output Total 770 / 770 1015 / 1015 860 / 860 Balance -220 / -220 521.67 / 621.67 -610 / -610 Labs (Last 48 Hours) 11/16/19 11/16/19 11/16/19 06:20 18:37 23:47 WBC RBC Hgb Hct MCV MCH MCHC RDW Std Deviation RDW Coeff of Fadumo Plt Count MPV Immature Gran % (Auto) Neut % (Auto) Lymph % (Auto) [place] % (Auto) Eos % (Auto) Baso % (Auto) Absolute Neuts (auto) Absolute Lymphs (auto) Nucleated RBC % Specimen Type Sample Site pH Bicarbonate Actual Total CO2 Base Excess O2 Saturation O2 % ABG pCO2 ABG pO2 Christofer Test Respiration Rate O2 Delivery Device Vent Mode Tidal Volume POC PEEP Sodium Potassium Chloride Carbon Dioxide Anion Gap BUN Creatinine Estim Creat Clear Calc Est GFR (MDRD) Af Amer Est GFR (MDRD) Non-Af BUN/Creatinine Ratio Glucose Calcium Ammonia TSH COVID-19 (KAREN) POC Glucose 255 H 182 H 208 H 11/17/19 11/17/19 11/17/19 03:45 03:45 07:00 WBC 11.4 H RBC 3.78 L Hgb 10.4 L Hct 33.3 L MCV 88.1 MCH 27.5 MCHC 31.2 L RDW Std Deviation 54.2 H RDW Coeff of Fadumo 16.8 H Plt Count 259 MPV 11.5 Immature Gran % (Auto) 0.400 Neut % (Auto) 65.8 Lymph % (Auto) 27.2 [place] % (Auto) 6.0 Eos % (Auto) 0.2 Baso % (Auto) 0.4 Absolute Neuts (auto) 7.5 Absolute Lymphs (auto) 3.09 Nucleated RBC % 0 Specimen Type Sample Site pH Bicarbonate Actual Total CO2 Base Excess O2 Saturation O2 % ABG pCO2 ABG pO2 Christofer Test Respiration Rate O2 Delivery Device Vent Mode Tidal Volume POC PEEP Sodium 143 Potassium 3.1 L Chloride 108 H Carbon Dioxide 26.0 Anion Gap 9 BUN 30 H Creatinine 0.93 Estim Creat Clear Calc 43.25 Est GFR (MDRD) Af Amer 76 Est GFR (MDRD) Non-Af 63 BUN/Creatinine Ratio 32.3 H Glucose 276 H Calcium 8.3 L Ammonia TSH 1.53 COVID-19 (KAREN) POC Glucose 11/17/19 11/17/19 11/17/19 07:00 07:07 12:01 WBC RBC Hgb Hct MCV MCH MCHC RDW Std Deviation RDW Coeff of Fadumo Plt Count MPV Immature Gran % (Auto) Neut % (Auto) Lymph % (Auto) [place] % (Auto) Eos % (Auto) Baso % (Auto) Absolute Neuts (auto) Absolute Lymphs (auto) Nucleated RBC % Specimen Type ART Sample Site L Radial pH 7.51 H Bicarbonate Actual 27.1 H Total CO2 28 Base Excess 4 H O2 Saturation 98 O2 % 30 ABG pCO2 33.8 L ABG pO2 100 Christofer Test Positive Respiration Rate 14.0000 O2 Delivery Device Adult Vent Vent Mode AC Tidal Volume 450 POC PEEP 5.0000 Sodium Potassium Chloride Carbon Dioxide Anion Gap BUN Creatinine Estim Creat Clear Calc Est GFR (MDRD) Af Amer Est GFR (MDRD) Non-Af BUN/Creatinine Ratio Glucose Calcium Ammonia 21.0 TSH COVID-19 (KAREN) POC Glucose 182 H 11/17/19 11/17/19 11/18/19 15:37 17:20 00:15 WBC RBC Hgb Hct MCV MCH MCHC RDW Std Deviation RDW Coeff of Fadumo Plt Count MPV Immature Gran % (Auto) Neut % (Auto) Lymph % (Auto) [place] % (Auto) Eos % (Auto) Baso % (Auto) Absolute Neuts (auto) Absolute Lymphs (auto) Nucleated RBC % Specimen Type Sample Site pH Bicarbonate Actual Total CO2 Base Excess O2 Saturation O2 % ABG pCO2 ABG pO2 Christofer Test Respiration Rate O2 Delivery Device Vent Mode Tidal Volume POC PEEP Sodium Potassium Chloride Carbon Dioxide Anion Gap BUN Creatinine Estim Creat Clear Calc Est GFR (MDRD) Af Amer Est GFR (MDRD) Non-Af BUN/Creatinine Ratio Glucose Calcium Ammonia TSH COVID-19 (KAREN) Not Detected POC Glucose 238 H 245 H 11/18/19 11/18/19 11/18/19 05:27 05:30 05:30 WBC 11.0 RBC 3.88 L Hgb 10.8 L Hct 34.6 L MCV 89.2 MCH 27.8 MCHC 31.2 L RDW Std Deviation 54.8 H RDW Coeff of Fadumo 16.7 H Plt Count 273 MPV 11.4 Immature Gran % (Auto) 0.500 Neut % (Auto) 69.8 Lymph % (Auto) 22.1 [place] % (Auto) 6.4 Eos % (Auto) 0.8 Baso % (Auto) 0.4 Absolute Neuts (auto) 7.7 Absolute Lymphs (auto) 2.42 Nucleated RBC % 0 Specimen Type Sample Site pH Bicarbonate Actual Total CO2 Base Excess O2 Saturation O2 % ABG pCO2 ABG pO2 Christofer Test Respiration Rate O2 Delivery Device Vent Mode Tidal Volume POC PEEP Sodium 141 Potassium 3.8 Chloride 108 H Carbon Dioxide 26.0 Anion Gap 7 BUN 22 H Creatinine 0.67 Estim Creat Clear Calc 40.22 Est GFR (MDRD) Af Amer 111 Est GFR (MDRD) Non-Af 92 BUN/Creatinine Ratio 32.7 H Glucose 237 H Calcium 8.7 Ammonia TSH COVID-19 (KAREN) POC Glucose 244 H Microbiology 11/15/19 14:20 Urine Catheter - Boyer Urine Culture - Preliminary Gram negative janett GPC Poss Enterococcus sp 11/15/19 Unknown Sputum, Induced/Lukens Gram Stain - Final 11/15/19 Unknown Sputum, Induced/Lukens Respiratory Culture - Preliminary Alpha hemolytic organism Presumptive C albicans 11/15/19 13:55 Blood Culture (Wb) - Anticubital Left Blood Culture - Preliminary No growth in 48 hours. Clinical Impression(s) from Imaging Studies Brain CT 11/15/19 10:01 IMPRESSION: No acute intracranial abnormality. Electronically Signed: Edin Glasgow at 10:48 EDT Tel , Service support , ADDENDUM: 11/15/19 1206 Head/Neck CTA 11/15/19 10:02 IMPRESSION: Unremarkable CTA Head and neck with contrast. Electronically Signed: Edin Glasgow at 10:51 EDT Tel , Service support , ADDENDUM: 11/15/19 1205 Chest X-Ray 11/15/19 10:12 IMPRESSION: 1. Endotracheal and enteric tubes, as above. 2. Multilobar left pulmonary infiltrates particularly at the left lung base. Pneumonia and/or atelectasis suggested. Electronically Signed: Gerardo Flores MD ([place]) at 12:03 EDT , Service support , Brain MRI 11/16/19 06:31 IMPRESSION: Involutional changes of the brain, as described above. No acute infarct. Electronically Signed: Benjy Raphael MD at 13:36 EDT Tel , Service support , Medical Necessity - Tobacco Use Smoking Status: Never smoker Assessment/Plan All Active Problems Suspected cerebrovascular accident (CVA) (Acute) Aspiration pneumonia (Acute) Acute cystitis (Acute) Acute on recurrent syncope with collapse (Resolved) Acute on recurrent fall (Resolved) RECOMMENDATIONS: 1. Proceed with a trial of extubation this morning. 2. Once extubated, wean supplemental oxygen to maintain saturations at or above 90%. 3. Obtain speech therapy evaluation, prior to advancing diet. 4. Continue antimicrobials, with plans to complete a 7-day treatment course. 5. Encourage incentive spirometer use and mobilize patient as tolerated. IMPRESSIONS: 1. Acute Respiratory Failure Although the patient was not initially documented to be hypoxemic on arrival, she was unable to protect her airway and was subsequently intubated for airway protection. Further work-up including chest x-ray did reveal evidence of a left lower lobe airspace opacity concerning for possible pneumonia. The patient is currently on appropriate antimicrobials. Although the patient has had a waxing and waning mental status course over the period of her hospitalization, she is currently alert and appropriately interactive. Therefore, an attempted extubation will be undertaken this morning. Once extubated, supplemental oxygen will be weaned to maintain saturations at or above 90%. I would recommend a speech therapy evaluation prior to considering advancing diet. 2. Encephalopathy Initial clinical suspicion was for acute CVA versus seizure with postictal state. However, further work-up including MRI failed to demonstrate an acute CVA. The patient was initially started on Keppra with follow-up EEG is failing to demonstrate epileptiform discharges. It is certainly possible that the patient's presenting symptoms may have been metabolic in nature and/or related to underlying infection. She remains on appropriate antimicrobials. All sedating medications have been withheld. We will plan to extubate the patient this morning and reassess her baseline neurological status once liberated from invasive mechanical ventilatory support. 3. Acute cystitis The patient did present with findings concerning for urinary tract source of infection as well. This may also have been contributing to the patient's altered mentation. Plan to continue antibiotics as ordered. Urine culture is pending. 4. Advanced age/diabetes mellitus/history of venous thrombosis/hyperlipidemia/GERD/neuropathy/depression/anxiety Complicates care, management, recovery and prognosis. Continue home medications as indicated. TIME: 35 minutes of critical care time, independent of procedures, was spent addressing the patient's acute respiratory failure, encephalopathy, acute cystitis, review of all data and collaboration with the care team. [id number]) [phone] [id number] Critical care first hour
--- NOTE | 2019-11-18 10:06 | CM.UR ---
Participated in interdisciplinary rounds this am. Patient was extubated this am. Transfer to [facility] will be canceled at this time with patient continuing to receive care here. Patient will be re-evaluated for discharge planning. Sue Acuña RN, [facility].
[2019-11-18] MEDS: levETIRAcetam IV 1,000 MG/100 ML BAG 400 MG IV ×2 (10:38→20:35)
[2019-11-18] MEDS: Enoxaparin 40 MG/0.4 ML Syringe SC (10:41)
[2019-11-18] MEDS: Aspirin 300 MG Suppository RECTAL (11:33)
[2019-11-18 12:26] LABS: Bedside Glucose 219 mg/dL (70-110)
[2019-11-18 18:46] LABS: Bedside Glucose 197 mg/dL (70-110)
[2019-11-19] VITALS (15 sets, daily range): BP systolic 112–165; BP diastolic 46–84; PULSE 54–119; RESP 16–25; TEMP 36.6–37.7; O2SAT 91–99; BMI 27.5
[2019-11-19] MEDS: Insulin Lispro 100 UNIT/ML INSULN.PEN SC ×3 (00:30→13:42)
[2019-11-19 00:36] LABS: Bedside Glucose 197 mg/dL (70-110)
[2019-11-19 05:26] LABS: Bedside Glucose 192 mg/dL (70-110)
[2019-11-19 05:27] LABS: Absolute Neutrophil Count 5.5 X10^3/uL (2.0-7.7); Basophil# 0.04 X10^3/uL; Basophil% 0.4 % (0-1); Eosinophils% 2.2 % (0-5); Hematocrit 34.3 % (37-47); Hemoglobin 10.6 g/dL (12.0-15.0); Lymphocyte % 32.4 % (19-41); Mean Corp Hgb Conc 30.9 g/dL (32-36); Mean Corpuscular Hgb 27.6 pg (27.0-32.0); Mean Corpuscular Volume 89.3 fL (81-99); Mean Platelet Vol. 10.5 fl (6.2-12.0); Monocyte# 0.51 X10^3/uL; Monocyte% 5.5 % (0-10); NRBC Flagged by Analyzer 0 % (0-5); Neutrophil # 5.47 X10^3/uL (2.7-7.7); Neutrophil % 59.1 % (47-70); Platelet Count 283 K/mm3 (150-450); RBC Distribution Width CV 16.4 % (11.6-14.6); RBC Distribution Width SD 53.9 fl (35.1-43.9); Red Blood Count 3.84 M/mm3 (4.2-5.4); White Blood Count 9.3 K/mm3 (4.4-11.0)
[2019-11-19 05:41] LABS: Anion Gap 7 (5-15); BUN 23 mg/dL (7-18); BUN/Creat Ratio 31.9 RATIO (10-20); Calcium,Total 8.6 mg/dL (8.5-10.1); Chloride 109 mmol/L (98-107); Creatinine, Serum 0.72 mg/dL (0.55-1.02); EST Glomerular Filtration Rate 84 mL/min (>60); Est Glom Filt Rate - Afr Amer 102 mL/min (>60); Estimated Creatinine Clearance 40.22 ml/min; Glucose 191 mg/dL (74-106); Potassium 3.4 mmol/L (3.5-5.1); Sodium Level 142 mmol/L (136-145)
--- NOTE | 2019-11-19 06:58 | PCM.PN.INT ---
Subjective: The patient was seen and examined at the bedside this morning. Events from the last 24 hours have been reviewed. The patient is currently afebrile, hemodynamically stable and maintaining appropriate oxygen saturations on 1 L/min via nasal cannula. The patient failed her swallow evaluation yesterday and remains n.p.o. There are plans for speech therapy reevaluation today. The patient is alert and oriented to person and place. Objective: The patient's most recent lab work, culture data and imaging studies have all been personally reviewed. Surface echocardiogram revealed normal LV size with an ejection fraction of 70%. Pulmonary artery systolic pressure was estimated to be 30 mmHg. Brain MRI revealed involutional changes of the brain without acute infarction. Strep and urine Legionella antigens were negative. Sputum culture was positive for Streptococcus pneumonia. Urine culture was positive for Enterococcus faecalis. General: Alert, Cooperative, No apparent distress, Confused HEENT: Atraumatic, Normocephalic Oral: No Gingival or Mucosal Lesions/ Ulcerations Neck: Supple, No Nodes, Trachea Midline Lungs: Diminished Cardiovascular: Normal S1, Normal S2, Tachycardic Abdomen: Bowel Sounds Present, Soft, Non Tender Extremities: No clubbing, No cyanosis, No edema Skin: No breakdown Musculoskeletal: No Tenderness to Palpation of Joints or Extremities Lymphatic: No Cervical, Supraclavicular, or Inguinal Adenopathy Neurological: Cranial nerves II-XII grossly intact Psych/Mental Status: Flat Affect Vital Signs Temp Pulse Resp BP Pulse Ox 99.7 F H 107 H 17 153/84 H 98 11/19/19 06:00 11/19/19 06:00 11/19/19 06:00 11/19/19 06:00 11/19/19 06:00 Oxygen Flow Rate (L/min) 1 Oxygen Delivery Method Nasal Cannula Weight: 149 lb 14.629 oz Body Mass Index (BMI) 27.5 Finger Stick Blood Glucose 69 Intake and Output for Last 24 Hours 11/17/19 11/18/19 11/19/19 23:59 23:59 23:59 Intake Total 1536.67 / 1636.67 550 / 550 50 / 50 Output Total 1015 / 1015 1570 / 1630 295 / 295 Balance 521.67 / 621.67 -1020 / -1080 -245 / -245 Labs (Last 48 Hours) 11/17/19 11/17/19 11/17/19 07:00 07:00 07:07 WBC RBC Hgb Hct MCV MCH MCHC RDW Std Deviation RDW Coeff of Fadumo Plt Count MPV Immature Gran % (Auto) Neut % (Auto) Lymph % (Auto) Hooker % (Auto) Eos % (Auto) Baso % (Auto) Absolute Neuts (auto) Absolute Lymphs (auto) Nucleated RBC % Specimen Type ART Sample Site L Radial pH 7.51 H Bicarbonate Actual 27.1 H Total CO2 28 Base Excess 4 H O2 Saturation 98 O2 % 30 ABG pCO2 33.8 L ABG pO2 100 Christofer Test Positive Respiration Rate 14.0000 O2 Delivery Device Adult Vent Vent Mode AC Tidal Volume 450 POC PEEP 5.0000 Sodium Potassium Chloride Carbon Dioxide Anion Gap BUN Creatinine Estim Creat Clear Calc Est GFR (MDRD) Af Amer Est GFR (MDRD) Non-Af BUN/Creatinine Ratio Glucose Calcium Ammonia 21.0 TSH 1.53 COVID-19 (KAREN) POC Glucose 11/17/19 11/17/19 11/17/19 12:01 15:37 17:20 WBC RBC Hgb Hct MCV MCH MCHC RDW Std Deviation RDW Coeff of Fadumo Plt Count MPV Immature Gran % (Auto) Neut % (Auto) Lymph % (Auto) [place]er % (Auto) Eos % (Auto) Baso % (Auto) Absolute Neuts (auto) Absolute Lymphs (auto) Nucleated RBC % Specimen Type Sample Site pH Bicarbonate Actual Total CO2 Base Excess O2 Saturation O2 % ABG pCO2 ABG pO2 Christofer Test Respiration Rate O2 Delivery Device Vent Mode Tidal Volume POC PEEP Sodium Potassium Chloride Carbon Dioxide Anion Gap BUN Creatinine Estim Creat Clear Calc Est GFR (MDRD) Af Amer Est GFR (MDRD) Non-Af BUN/Creatinine Ratio Glucose Calcium Ammonia TSH COVID-19 (KAREN) Not Detected POC Glucose 182 H 238 H 11/18/19 11/18/19 11/18/19 00:15 05:27 05:30 WBC 11.0 RBC 3.88 L Hgb 10.8 L Hct 34.6 L MCV 89.2 MCH 27.8 MCHC 31.2 L RDW Std Deviation 54.8 H RDW Coeff of Fadumo 16.7 H Plt Count 273 MPV 11.4 Immature Gran % (Auto) 0.500 Neut % (Auto) 69.8 Lymph % (Auto) 22.1 Hooker % (Auto) 6.4 Eos % (Auto) 0.8 Baso % (Auto) 0.4 Absolute Neuts (auto) 7.7 Absolute Lymphs (auto) 2.42 Nucleated RBC % 0 Specimen Type Sample Site pH Bicarbonate Actual Total CO2 Base Excess O2 Saturation O2 % ABG pCO2 ABG pO2 Christofer Test Respiration Rate O2 Delivery Device Vent Mode Tidal Volume POC PEEP Sodium Potassium Chloride Carbon Dioxide Anion Gap BUN Creatinine Estim Creat Clear Calc Est GFR (MDRD) Af Amer Est GFR (MDRD) Non-Af BUN/Creatinine Ratio Glucose Calcium Ammonia TSH COVID-19 (KAREN) POC Glucose 245 H 244 H 11/18/19 11/18/19 11/18/19 05:30 12:15 18:43 WBC RBC Hgb Hct MCV MCH MCHC RDW Std Deviation RDW Coeff of Fadumo Plt Count MPV Immature Gran % (Auto) Neut % (Auto) Lymph % (Auto) Hooker % (Auto) Eos % (Auto) Baso % (Auto) Absolute Neuts (auto) Absolute Lymphs (auto) Nucleated RBC % Specimen Type Sample Site pH Bicarbonate Actual Total CO2 Base Excess O2 Saturation O2 % ABG pCO2 ABG pO2 Christofer Test Respiration Rate O2 Delivery Device Vent Mode Tidal Volume POC PEEP Sodium 141 Potassium 3.8 Chloride 108 H Carbon Dioxide 26.0 Anion Gap 7 BUN 22 H Creatinine 0.67 Estim Creat Clear Calc 40.22 Est GFR (MDRD) Af Amer 111 Est GFR (MDRD) Non-Af 92 BUN/Creatinine Ratio 32.7 H Glucose 237 H Calcium 8.7 Ammonia TSH COVID-19 (KAREN) POC Glucose 219 H 197 H 11/19/19 11/19/19 11/19/19 00:25 05:15 05:15 WBC 9.3 RBC 3.84 L Hgb 10.6 L Hct 34.3 L MCV 89.3 MCH 27.6 MCHC 30.9 L RDW Std Deviation 53.9 H RDW Coeff of Fadumo 16.4 H Plt Count 283 MPV 10.5 Immature Gran % (Auto) 0.400 Neut % (Auto) 59.1 Lymph % (Auto) 32.4 Hooker % (Auto) 5.5 Eos % (Auto) 2.2 Baso % (Auto) 0.4 Absolute Neuts (auto) 5.5 Absolute Lymphs (auto) 3.00 Nucleated RBC % 0 Specimen Type Sample Site pH Bicarbonate Actual Total CO2 Base Excess O2 Saturation O2 % ABG pCO2 ABG pO2 Christofer Test Respiration Rate O2 Delivery Device Vent Mode Tidal Volume POC PEEP Sodium 142 Potassium 3.4 L Chloride 109 H Carbon Dioxide 26.0 Anion Gap 7 BUN 23 H Creatinine 0.72 Estim Creat Clear Calc 40.22 Est GFR (MDRD) Af Amer 102 Est GFR (MDRD) Non-Af 84 BUN/Creatinine Ratio 31.9 H Glucose 191 H Calcium 8.6 Ammonia TSH COVID-19 (KAREN) POC Glucose 197 H 11/19/19 05:17 WBC RBC Hgb Hct MCV MCH MCHC RDW Std Deviation RDW Coeff of Fadumo Plt Count MPV Immature Gran % (Auto) Neut % (Auto) Lymph % (Auto) Hooker % (Auto) Eos % (Auto) Baso % (Auto) Absolute Neuts (auto) Absolute Lymphs (auto) Nucleated RBC % Specimen Type Sample Site pH Bicarbonate Actual Total CO2 Base Excess O2 Saturation O2 % ABG pCO2 ABG pO2 Christofer Test Respiration Rate O2 Delivery Device Vent Mode Tidal Volume POC PEEP Sodium Potassium Chloride Carbon Dioxide Anion Gap BUN Creatinine Estim Creat Clear Calc Est GFR (MDRD) Af Amer Est GFR (MDRD) Non-Af BUN/Creatinine Ratio Glucose Calcium Ammonia TSH COVID-19 (KAREN) POC Glucose 192 H Microbiology 11/15/19 Unknown Sputum, Induced/Lukens Gram Stain - Final 11/15/19 Unknown Sputum, Induced/Lukens Respiratory Culture - Preliminary Streptococcus pneumoniae Presumptive C albicans 11/15/19 14:20 Urine Catheter - Boyer Urine Culture - Final Enterobacter cloacae complex Enterococcus faecalis 11/15/19 13:55 Blood Culture (Wb) - Anticubital Left Blood Culture - Preliminary No growth in 48 hours. Clinical Impression(s) from Imaging Studies Brain CT 11/15/19 10:01 IMPRESSION: No acute intracranial abnormality. Electronically Signed: Edin Glasgow, at 10:48 EDT Tel , Service support , ADDENDUM: 11/15/19 1206 Head/Neck CTA 11/15/19 10:02 IMPRESSION: Unremarkable CTA Head and neck with contrast. Electronically Signed: Edin Glasgow at 10:51 EDT Tel , Service support , ADDENDUM: 11/15/19 1205 Chest X-Ray 11/15/19 10:12 IMPRESSION: 1. Endotracheal and enteric tubes, as above. 2. Multilobar left pulmonary infiltrates particularly at the left lung base. Pneumonia and/or atelectasis suggested. Electronically Signed: Gerardo Flores MD ([place]) at 12:03 EDT , Service support , Brain MRI 11/16/19 06:31 IMPRESSION: Involutional changes of the brain, as described above. No acute infarct. Electronically Signed: Benjy Raphael MD at 13:36 EDT Tel , Service support , Medical Necessity - Tobacco Use Smoking Status: Never smoker Assessment/Plan All Active Problems Suspected cerebrovascular accident (CVA) (Acute) Aspiration pneumonia (Acute) Acute cystitis (Acute) Acute on recurrent syncope with collapse (Resolved) Acute on recurrent fall (Resolved) RECOMMENDATIONS: 1. Continue to wean supplemental oxygen to maintain saturations at or above 90%. 2. Encourage incentive spirometer use and mobilize patient as tolerated. 3. Potassium repletion. 4. Continue Keppra with further neurology follow-up as indicated. 5. Speech therapy reevaluation today. 6. Physical therapy to continue to work with the patient. 7. The patient is medically stable for transfer out of the intensive care unit. Given the patient's lack of further ICU needs, will sign off. Call with any additional questions. IMPRESSIONS: 1. Acute Respiratory Failure Improved. Although the patient was not initially documented to be hypoxemic on arrival, she was unable to protect her airway and was subsequently intubated for airway protection. Further work-up including chest x-ray did reveal evidence of a left lower lobe airspace opacity concerning for possible pneumonia. The patient is currently on appropriate antimicrobials. The patient was able to be successfully extubated on November 17 and has minimal supplemental oxygen requirement. She does have pneumococcal pneumonia, which is being managed by antimicrobials. Plan to continue to wean supplemental oxygen to maintain saturations at or above 90%. Encourage incentive spirometer use and mobilize patient as tolerated. 2. Encephalopathy Improved. Initial clinical suspicion was for acute CVA versus seizure with postictal state. However, further work-up including MRI failed to demonstrate an acute CVA. The patient was initially started on Keppra with follow-up EEG failing to demonstrate epileptiform discharges. It is certainly possible that the patient's presenting symptoms may have been metabolic in nature and/or related to underlying infection. She remains on appropriate antimicrobials. All sedating medications have been withheld. 3. Pneumococcal pneumonia/enterococcus cystitis The patient has evidence of both pneumococcal pneumonia and enterococcus cystitis, which is being managed by antimicrobial therapy. 4. Advanced age/diabetes mellitus/history of venous thrombosis/hyperlipidemia/GERD/neuropathy/depression/anxiety Complicates care, management, recovery and prognosis. Continue home medications as indicated. This note was generated with [employer] dictation software. It may contain incorrect words, spelling, and punctuation that were not noted in checking the note before signing. Inpatient E&M: [id number] [facility] Hosp L3
--- NOTE | 2019-11-19 07:03 | PCM.PN.HOSP ---
Patient Problems: Active and Suspected Problems Suspected cerebrovascular accident (CVA) (Acute) Aspiration pneumonia (Acute) Acute cystitis (Acute) Reason for Visit: Acute encephalopathy Subjective: Patient seen overall clinical condition continues to improve. Patient is able to carry a purposeful conversation. Plan is for patient to be transferred from the ICU to regular nursing floor. Patient is scheduled to undergo speech and swallow eval. She did fail her swallow eval the day prior. Objective: GENERAL: Patient is cooperative HEENT: Atraumatic; EYES; Anicteric, pupils nonreactive NECK; supple, normal thyroid, RESPIRATORY: Diminished to auscultation CARDIOVASCULAR: Regular S1 S2, GI: soft, normoactive bowel sounds, : Catheter in place EXTREMITIES: , no clubbing, MUSCULOSKELETAL: no muscle waisting NEURO: No lateralizing signs SKIN: No Rash PSYCH; flat affect Vitals/I&O's: Vital Signs Temp Pulse Resp BP Pulse Ox 99.6 F H 102 H 18 165/77 H 95 11/19/19 07:00 11/19/19 07:00 11/19/19 07:00 11/19/19 07:00 11/19/19 07:00 Oxygen Flow Rate (L/min) 1 Oxygen Delivery Method Nasal Cannula Weight: 68 kg Body Mass Index (BMI) 27.5 Finger Stick Blood Glucose 69 Intake and Output for Last 24 Hours 11/17/19 11/18/19 11/19/19 23:59 23:59 23:59 Intake Total 1536.67 / 1636.67 550 / 550 50 / 50 Output Total 1015 / 1015 1570 / 1630 295 / 295 Balance 521.67 / 621.67 -1020 / -1080 -245 / -245 Microbiology Past 72 Hours 11/15/19 Unknown Sputum, Induced/Lukens Gram Stain - Final 11/15/19 Unknown Sputum, Induced/Lukens Respiratory Culture - Preliminary Streptococcus pneumoniae Presumptive C albicans 11/15/19 14:20 Urine Catheter - Boyer Urine Culture - Final Enterobacter cloacae complex Enterococcus faecalis 11/15/19 13:55 Blood Culture (Wb) - Anticubital Left Blood Culture - Preliminary No growth in 48 hours. Laboratory Results 11/18/19 12:15: POC Glucose 219 H 11/18/19 18:43: POC Glucose 197 H 11/19/19 00:25: POC Glucose 197 H 11/19/19 05:15: WBC 9.3, RBC 3.84 L, Hgb 10.6 L, Hct 34.3 L, MCV 89.3, MCH 27.6, MCHC 30.9 L, RDW Std Deviation 53.9 H, RDW Coeff of Fadumo 16.4 H, Plt Count 283, MPV 10.5, Immature Gran % (Auto) 0.400, Neut % (Auto) 59.1, Lymph % (Auto) 32.4, [place] % (Auto) 5.5, Eos % (Auto) 2.2, Baso % (Auto) 0.4, Absolute Neuts (auto) 5.5, Absolute Lymphs (auto) 3.00, Nucleated RBC % 0 11/19/19 05:15: Sodium 142, Potassium 3.4 L, Chloride 109 H, Carbon Dioxide 26.0, Anion Gap 7, BUN 23 H, Creatinine 0.72, Estim Creat Clear Calc 40.22, Est GFR (MDRD) Af Amer 102, Est GFR (MDRD) Non-Af 84, BUN/Creatinine Ratio 31.9 H, Glucose 191 H, Calcium 8.6 11/19/19 05:17: POC Glucose 192 H Current Medications Acetaminophen (Tylenol) 650 mg RECTAL Q4H PRN PRN PRN Reason: Pain Score 1-10/Temp > 100.7 F Albuterol Sulfate (Ventolin Aerosols) 2.5 mg INHALATION Q2H PRN PRN PRN Reason: SOB/Wheezing Aspirin (Aspirin) 300 mg RECTAL DAILY [facility] Last Admin: 11/18/19 11:33 Dose: 300 mg Documented by: Dextrose (D50w Syringe) 0 gm IV X1 PRN; Protocol PRN Reason: Hypoglycemia Enoxaparin Sodium (Lovenox) 40 mg SC DAILY [facility] Last Admin: 11/18/19 10:41 Dose: 40 mg Documented by: Famotidine (Pepcid) 20 mg PO BID [facility] Last Admin: 11/18/19 22:11 Dose: Not Given Documented by: Glucagon () 1 mg IM .X1 PRN PRN Reason: Hypoglycemia Hydralazine HCl (Apresoline Iv) 5 mg IV Q30M PRN PRN Reason: to maintain BP goals Piperacillin Sod/Tazobactam (Sod 3.375 gm/ Sodium Chloride) 50 mls @ 12.5 mls/hr IV Q8 JOCELINE Last Admin: 11/19/19 05:14 Dose: 12.5 mls/hr Documented by: Sodium Chloride () 250 mls @ 15 mls/hr IV .[id number] PRN PRN Reason: Saline Flush Sodium Chloride () 250 mls @ 15 mls/hr IV .[id number] PRN PRN Reason: Additional IVPB Infusion Levetiracetam () 1,000 mg in 100 mls @ 400 mls/hr IV Q12 JOCELINE Last Infusion: 11/18/19 20:50 Dose: Infused Documented by: Insulin Glargine (Lantus ([facility])) 10 units SC DAILY J[facility]EL[facility] Last Admin: 11/18/19 12:17 Dose: Not Given Documented by: Insulin Human Lispro (Humalog Kwikpen ([facility])) 0 unit SC Q6 JOCELINE; Protocol Last Admin: 11/19/19 05:19 Dose: 1 u Documented by: Labetalol HCl (Trandate) 10 - 20 mg IV Q10M PRN PRN PRN Reason: to Maintain BP Goals Ondansetron HCl (Zofran) 4 mg IV Q8H PRN PRN PRN Reason: NAUSEA/VOMITING Sodium Chloride () 10 - 40 ml IV UD PRN PRN Reason: SALINE FLUSH Last Admin: 11/16/19 23:50 Dose: 10 ml Documented by: STROKE Vital Signs/Narrative: Vital Signs Temp Pulse Resp BP Pulse Ox 11/19/19 07:00 99.6 F H 102 H 18 165/77 H 95 11/19/19 06:00 99.7 F H 107 H 17 153/84 H 98 11/19/19 05:00 99.8 F H 119 H 21 H 163/73 H 92 11/19/19 04:00 99.7 F H 109 H 21 H 118/46 L 95 Medical Necessity - Tobacco Use Smoking Status: Never smoker Assessment/Plan All Active Problems Suspected cerebrovascular accident (CVA) (Acute) Aspiration pneumonia (Acute) Acute cystitis (Acute) Acute on recurrent syncope with collapse (Resolved) Acute on recurrent fall (Resolved) Patient is a 74-year-old lady brought in unresponsive with a suspicion of acute CVA was made admitted to the intensive care unit after patient was intubated. There was an initial suspicion for possible CVA however this was ruled out with imaging studies. EEG obtained was consistent with seizures involving the right frontal lobe. Plan was for patient to have been transferred to [facility] for 24 EEG monitoring patient condition however did not improve resulting in patient being weaned off the vent. Transferred to [facility] subsequently discontinued. Patient sputum cultures so far positive for Streptococcus pneumonia, urine cultures positive for Enterococcus faecalis on appropriate antibiotic therapy 1. Acute encephalopathy suspected to be secondary to seizures ?There was an initial high suspicion for acute ischemic CVA. Patient was deemed not to TPA candidate since last known to be well over 15 hours. Patient started on antiplatelet therapy with aspirin per rectum admitted to the intensive care unit. Subsequent MRI however did not demonstrate any ischemic CVA. EEG obtained demonstrated an abnormal activity involving the frontal lobe. It was felt patient was experiencing status epilepticus. With nonavailability of 24-hour EEG [facility] decision was made after discussing with consulting physicians on the case as well as family to have patient be transferred to a tertiary care center for subsequent management patient was started on Keppra prior to being transferred -11/18/2019. Patient was successfully weaned off the vent this AM. Plan to transfer patient to [facility] subsequently discontinued -.Patient seen overall clinical condition continues to improve. Patient is able to carry a purposeful conversation. Plan is for patient to be transferred from the ICU to regular nursing floor. Patient is scheduled to undergo speech and swallow eval. She did fail her swallow eval the day prior. 2. Acute hypoxic respiratory failure ?Patient was found to be saturating around 88% when first brought to the ED was intubated. Patient admitted to the intensive care unit consult placed to pulmonary medicine for vent management 3. Aspiration pneumonia ?. Patient intubated as stated above started on Unasyn and Levaquin after cultures were sent -11/18/2019: Successfully weaned off the vent -Sputum cultures came back positive for Streptococcus pneumoniae. Patient on appropriate antibiotics 4. Acute cystitis with Enterococcus faecalis ?Patient is on antibiotics as discussed above plan is adjust antibiotic therapy based on culture result -Urine cultures came back positive for Enterococcus faecalis 5. Diabetes mellitus type 2 ?Held patient home regimen please on Accu-Cheks Accu-Cheks every 6 with sliding scale coverage 6. Previous history of DVT ?Patient completed anticoagulation therapy 7. 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 Peripheral arterial disease ?Antiplatelet therapy with aspirin at home 9. Dyslipidemia -patient is on rosuvastatin at home 10. GERD ?On PPI at home 11. Diabetic polyneuropathy ?Patient is on gabapentin at home 12. Depression with anxiety - She is on Effexor at home 13. DVT prophylaxis - On enoxaparin 14. Hypokalemia ?Corrected per protocol Inpatient E&M: 94045 [facility] Hosp L2
[2019-11-19] MEDS: Enoxaparin 40 MG/0.4 ML Syringe SC (10:02)
[2019-11-19] MEDS: Aspirin 300 MG Suppository RECTAL (11:00)
[2019-11-19] MEDS: 0.9% Saline Lock 10 ML Syringe IV (11:38)
[2019-11-19 13:56] LABS: Bedside Glucose 180 mg/dL (70-110)
[2019-11-19] MEDS: Dextrose 5%/0.9% NaCl 1,000 ML 75 ML IV (18:18)
[2019-11-19 18:31] LABS: Bedside Glucose 147 mg/dL (70-110)
[2019-11-20] MEDS: Insulin Lispro 100 UNIT/ML INSULN.PEN SC ×5 (00:07→23:31)
[2019-11-20 00:16] LABS: Bedside Glucose 204 mg/dL (70-110)
[2019-11-20] MEDS: Menthol/Lanolin/Calamine/Znox 113 GM Tube 1 APPLIC TOPICAL ×2 (02:17→12:51)
[2019-11-20 02:19] VITALS: BP 137/68; PULSE 89; RESP 16; TEMP 37.1; O2SAT 95
[2019-11-20 03:08] VITALS: BMI 27.5
[2019-11-20 06:12] LABS: Absolute Lymphocyte Count 2.59 X10^3/uL (0.83-4.51); Absolute Neutrophil Count 4.7 X10^3/uL (2.0-7.7); Basophil# 0.04 X10^3/uL; Basophil% 0.5 % (0-1); Eosinophil# 0.17 X10^3/uL; Eosinophils% 2.1 % (0-5); Hematocrit 35.1 % (37-47); Hemoglobin 10.8 g/dL (12.0-15.0); Lymphocyte # 2.59 X10^3/ul (4.0); Lymphocyte % 32.6 % (19-41); Mean Corp Hgb Conc 30.8 g/dL (32-36); Mean Corpuscular Hgb 27.9 pg (27.0-32.0); Mean Corpuscular Volume 90.7 fL (81-99); Mean Platelet Vol. 10.4 fl (6.2-12.0); Monocyte# 0.43 X10^3/uL; Monocyte% 5.4 % (0-10); NRBC Flagged by Analyzer 0 % (0-5); Neutrophil # 4.67 X10^3/uL (2.7-7.7); Neutrophil % 58.8 % (47-70); Platelet Count 291 K/mm3 (150-450); RBC Distribution Width SD 53.1 fl (35.1-43.9); Red Blood Count 3.87 M/mm3 (4.2-5.4)
[2019-11-20] MEDS: Dextrose 5%/0.9% NaCl 1,000 ML 75 ML IV ×2 (06:23→18:51)
[2019-11-20 06:30] LABS: Bedside Glucose 229 mg/dL (70-110)
[2019-11-20 06:36] LABS: Anion Gap 10 (5-15); BUN 17 mg/dL (7-18); BUN/Creat Ratio 26.5 RATIO (10-20); Calcium,Total 8.5 mg/dL (8.5-10.1); Chloride 109 mmol/L (98-107); Creatinine, Serum 0.64 mg/dL (0.55-1.02); EST Glomerular Filtration Rate 96 mL/min (>60); Est Glom Filt Rate - Afr Amer 117 mL/min (>60); Estimated Creatinine Clearance 40.22 ml/min; Glucose 215 mg/dL (74-106); Sodium Level 142 mmol/L (136-145)
[2019-11-20 08:00] VITALS: O2SAT 93
[2019-11-20 09:05] VITALS: BP 152/80; PULSE 101; RESP 18; TEMP 37.1; O2SAT 93
[2019-11-20 09:45] VITALS: BMI 27.5
[2019-11-20 11:11] LABS: Bedside Glucose 218 mg/dL (70-110)
[2019-11-20] MEDS: Enoxaparin 40 MG/0.4 ML Syringe SC (11:12)
--- NOTE | 2019-11-20 12:20 | CASEMGMT ---
Addendum entered by Hermelinda Matos 11/20/19 13:59: BRAYAN updated that Ferdinand would now like pt to go to TCU. BRAYAN placed a call to Therese in TCU and provided referral. Therese states she is able to accept pt and will submit for pre-cert. BRAYAN in to speak with pt and Ephraimjoyce. Ferdinand confirms he would like pt to admit to TCU. BRAYAN explained pre-cert process. Ferdinand states understanding. Plan: TCU pending pre-cert Original Note: Social Work Note SW in to speak with pt to discuss discharge plans. Pt's son Ferdinand present in room. Ephraimhavengil states if able he would like to take pt home at discharge and he has arranged with family to have 24/7 care in the home. Ephraimhavengil confirms that pt currently has aide services through [facility] for 3 hours a day 5 days a week. Anjugil states he would like to have HHC through [facility] if able and get pt a better walker. BRAYAN updated RN CM. Hermelinda Matos [employer], [employer] ENG[employer]
--- NOTE | 2019-11-20 12:23 | PN_ITS ---
Patient Problems: Active and Suspected Problems Suspected cerebrovascular accident (CVA) (Acute) Aspiration pneumonia (Acute) Acute cystitis (Acute) Subjective: Pt sleepy but states that she is doing ok. Son at bedside and he was updated. Would like her to go to TCU if she needs continued therapies. He states that she is slowly getting better. Waiting for PARANORMAL INVESTIGATOR to see pt today. Vitals/I&O's: Vital Signs Temp Pulse Resp BP Pulse Ox 98.8 F 101 H 18 152/80 H 93 11/20/19 09:05 11/20/19 09:05 11/20/19 09:05 11/20/19 09:05 11/20/19 09:05 Oxygen Flow Rate (L/min) 2 Oxygen Delivery Method Room Air Weight: 72.6 kg Body Mass Index (BMI) 27.5 Finger Stick Blood Glucose 69 Intake and Output for Last 24 Hours 11/18/19 11/19/19 11/20/19 23:59 23:59 23:59 Intake Total 550 / 550 360 / 360 1111.25 / 1111.25 Output Total 1570 / 1630 745 / 745 750 / 750 Balance -1020 / -1080 -385 / -385 361.25 / 361.25 General: Alert, Cooperative, No apparent distress, Well developed, Well nourished, - - WF who appears older than stated age, lying in bed, appears comfortable, son at bedside Lungs: Clear to auscultation, Normal air movement, No wheeze, No rales Cardiovascular: Regular rate, Regular Rhythm, Normal S1, Normal S2, No murmurs, No Ectopic Activity, No rub noted, No Gallop Abdomen: Bowel Sounds Present, Soft, Non Tender, Non-Distended, No Hepato- splenomegaly, Obese Extremities: No clubbing, No cyanosis, No edema, Capillary Refill Less than 3 Seconds, Peripheral Pulses Normal Skin: No rashes, No breakdown Neurological: Facial Droop - R, - - Generalized weakness Psych/Mental Status: Normal Affect, Flat Affect, - - confused Microbiology Past 72 Hours 11/15/19 Unknown Sputum, Induced/Lukens Gram Stain - Final 11/15/19 Unknown Sputum, Induced/Lukens Respiratory Culture - Final Streptococcus pneumoniae Presumptive C albicans 11/15/19 14:20 Urine Catheter - [place] Urine Culture - Final Enterobacter cloacae complex Enterococcus faecalis 11/15/19 13:55 Blood Culture (Wb) - Anticubital Left Blood Culture - Preliminary No growth in 48 hours. Laboratory Results 11/19/19 13:39: POC Glucose 180 H 11/19/19 18:04: POC Glucose 147 H 11/20/19 00:05: POC Glucose 204 H 11/20/19 05:50: WBC 8.0, RBC 3.87 L, Hgb 10.8 L, Hct 35.1 L, MCV 90.7, MCH 27.9, MCHC 30.8 L, RDW Std Deviation 53.1 H, RDW Coeff of Fadumo 16.0 H, Plt Count 291, MPV 10.4, Immature Gran % (Auto) 0.600, Neut % (Auto) 58.8, Lymph % (Auto) 32.6, [place] % (Auto) 5.4, Eos % (Auto) 2.1, Baso % (Auto) 0.5, Absolute Neuts (auto) 4.7, Absolute Lymphs (auto) 2.59, Nucleated RBC % 0 11/20/19 05:50: Sodium 142, Potassium 3.0 L, Chloride 109 H, Carbon Dioxide 23.0, Anion Gap 10, BUN 17, Creatinine 0.64, Estim Creat Clear Calc 40.22, Est GFR (MDRD) Af Amer 117, Est GFR (MDRD) Non-Af 96, BUN/Creatinine Ratio 26.5 H, Glucose 215 H, Calcium 8.5 11/20/19 06:19: POC Glucose 229 H 11/20/19 11:02: POC Glucose 218 H Current Medications Acetaminophen (Tylenol) 650 mg RECTAL Q4H PRN PRN PRN Reason: Pain Score 1-10/Temp > 100.7 F Albuterol Sulfate (Ventolin Aerosols) 2.5 mg INHALATION Q2H PRN PRN PRN Reason: SOB/Wheezing Aspirin (Aspirin) 300 mg RECTAL DAILY [facility] Last Admin: 11/19/19 11:00 Dose: 300 mg Documented by: Calamine/Phenol (Calmoseptine Ointment) 1 applic TOPICAL BID PRN; Protocol PRN Reason: rectal/buttocks irritation Last Admin: 11/20/19 02:17 Dose: 1 applic Documented by: Dextrose (D50w Syringe) 0 gm IV X1 PRN; Protocol PRN Reason: Hypoglycemia Enoxaparin Sodium (Lovenox) 40 mg SC DAILY [facility] Last Admin: 11/20/19 11:12 Dose: 40 mg Documented by: Famotidine (Pepcid) 20 mg PO BID [facility] Last Admin: 11/19/19 20:57 Dose: Not Given Documented by: Glucagon () 1 mg IM .X1 PRN PRN Reason: Hypoglycemia Hydralazine HCl (Apresoline Iv) 5 mg IV Q30M PRN PRN Reason: to maintain BP goals Piperacillin Sod/Tazobactam (Sod 3.375 gm/ Sodium Chloride) 50 mls @ 12.5 mls/hr IV Q8 [facility] Last Infusion: 11/20/19 10:21 Dose: Infused Documented by: Sodium Chloride () 250 mls @ 15 mls/hr IV .[id number] PRN PRN Reason: Saline Flush Sodium Chloride () 250 mls @ 15 mls/hr IV .[id number] PRN PRN Reason: Additional IVPB Infusion Levetiracetam 500 mg/ Sodium (Chloride) 105 mls @ 400 mls/hr IV Q12 [facility] Last Infusion: 11/20/19 11:28 Dose: Infused Documented by: Dextrose/Sodium Chloride (Dextrose 5%/0.9% Nacl) 1,000 mls @ 75 mls/hr IV .[id number] [facility] Last Admin: 11/20/19 06:23 Dose: 75 mls/hr Documented by: Insulin Glargine (Lantus ([facility])) 10 units SC DAILY [facility] Last Admin: 11/20/19 11:12 Dose: Not Given Documented by: Insulin Human Lispro (Humalog Kwikpen ([facility])) 0 unit SC Q6 [facility]; Protocol Last Admin: 11/20/19 11:12 Dose: 1 u Documented by: Labetalol HCl (Trandate) 10 - 20 mg IV Q10M PRN PRN PRN Reason: to Maintain BP Goals Ondansetron HCl (Zofran) 4 mg IV Q8H PRN PRN PRN Reason: NAUSEA/VOMITING Sodium Chloride () 10 - 40 ml IV UD PRN PRN Reason: SALINE FLUSH Last Admin: 11/19/19 11:38 Dose: 10 ml Documented by: STROKE Vital Signs/Narrative: Vital Signs Temp Pulse Resp BP Pulse Ox 11/20/19 09:05 98.8 F 101 H 18 152/80 H 93 Medical Necessity - Tobacco Use Smoking Status: Never smoker Assessment/Plan All Active Problems Suspected cerebrovascular accident (CVA) (Acute) Aspiration pneumonia (Acute) Acute cystitis (Acute) Acute on recurrent syncope with collapse (Resolved) Acute on recurrent fall (Resolved) Acute Respiratory Failure 2/2 lack of Airway Protection/S.Pneumo PNA/Aspiration PNA -pt was unresponsive and not protecting her airway on admission and was intubated in the ED -was able to be extubated on 11/18/2019 -now resolved and pt is on RA with SpO2 93-95% S. Pneumo PNA/Aspiration PNA -on Zosyn day 06/14 Enterococcus Faecalis UTI -treatment completed as pt has had > 3 days of Abx and infection is uncomplicated Dysphagia -initially failed swallow eval -awaiting PARANORMAL INVESTIGATOR to see today -Pt is NPO -will start diet as soon as able -if does poorly on swallow eval may need to discuss [place] Metabolic Encephalopathy 2/2 Seizures -MRI was neg for infarct -EEG obtained demonstrated an abnormal activity involving the frontal lobe -there was concern about status and the plan was to transfer to [facility] for [facility] but pt successfully extubated on 11/17 and [facility] transfer was d/c -continue Keppra and switch to PO once able -MS is improving slowly -will need f/u with neurology after d/c DM-2 -at home is on Lantus 65 u at HS, Lispro 6 u with breakfast and lunch and 8 u with dinner, metformin, Actos -will consider d/c of Actos at d/c -currently on 10 u Lantus at HS and SSI -BGT are a bit elevated with this--> but per d/w nursing Lantus has not been being give as she is NPO -advised to give Lantus 10 HPL -continue Statin once able to take PO Hypokalemia -will give 40 PO and recheck in am if passes swallow eval -check am mag Anemia -appears chronic and stable H/O DVT -completed treatment H/O stroke -continue statin and asa once able to take PO GERD -H2 gisela Diabetic Neuropathy -restart Gabapentin once able to take PO Depression/Anxiety -restart Effexor once passes for diet -restart Zyprexa when able Dementia -pt on Namenda at baseline -restart when able -pt still living alone and mostly IADL's at this time per son DVT Prophylaxis -Lovenox Code Status -Full Dispo -SNF vs rehab/TCU in 2 days depending on progress Inpatient E&M: 98149 Subs Hosp L3
[2019-11-20] MEDS: Aspirin 300 MG Suppository RECTAL (12:47)
[2019-11-20] MEDS: Famotidine 20 MG Tablet PO ×2 (14:44→22:08)
[2019-11-20 15:30] VITALS: BP 154/85; PULSE 90; RESP 18; TEMP 37; O2SAT 95
[2019-11-20 15:41] LABS: Bedside Glucose 228 mg/dL (70-110)
[2019-11-20 17:40] LABS: Bedside Glucose 221 mg/dL (70-110)
[2019-11-20 22:11] VITALS: BP 157/85; PULSE 82; RESP 18; TEMP 36.8; O2SAT 98
[2019-11-20 22:14] VITALS: BMI 27.5
[2019-11-20 22:46] VITALS: PULSE 82; RESP 18; O2SAT 98
[2019-11-20 23:35] LABS: Bedside Glucose 246 mg/dL (70-110)
[2019-11-21 04:37] VITALS: BP 137/88; PULSE 90; RESP 18; TEMP 36.8; O2SAT 96
[2019-11-21 04:40] VITALS: PULSE 90; RESP 18; O2SAT 96
[2019-11-21 05:59] LABS: Absolute Lymphocyte Count 2.83 X10^3/uL (0.83-4.51); Basophil# 0.05 X10^3/uL; Basophil% 0.6 % (0-1); Eosinophil# 0.14 X10^3/uL; Eosinophils% 1.7 % (0-5); Hematocrit 34.8 % (37-47); Hemoglobin 10.8 g/dL (12.0-15.0); Lymphocyte # 2.83 X10^3/ul (4.0); Lymphocyte % 33.4 % (19-41); Mean Corpuscular Hgb 27.3 pg (27.0-32.0); Mean Corpuscular Volume 87.9 fL (81-99); Mean Platelet Vol. 10.1 fl (6.2-12.0); Monocyte# 0.45 X10^3/uL; Monocyte% 5.3 % (0-10); NRBC Flagged by Analyzer 0 % (0-5); Neutrophil # 4.96 X10^3/uL (2.7-7.7); Neutrophil % 58.4 % (47-70); Platelet Count 288 K/mm3 (150-450); RBC Distribution Width CV 15.9 % (11.6-14.6); RBC Distribution Width SD 50.9 fl (35.1-43.9); Red Blood Count 3.96 M/mm3 (4.2-5.4); White Blood Count 8.5 K/mm3 (4.4-11.0)
[2019-11-21 06:19] LABS: Anion Gap 6 (5-15); BUN 9 mg/dL (7-18); BUN/Creat Ratio 13.4 RATIO (10-20); Calcium,Total 8.2 mg/dL (8.5-10.1); Chloride 110 mmol/L (98-107); Creatinine, Serum 0.67 mg/dL (0.55-1.02); EST Glomerular Filtration Rate 91 mL/min (>60); Est Glom Filt Rate - Afr Amer 111 mL/min (>60); Estimated Creatinine Clearance 40.22 ml/min; Glucose 245 mg/dL (74-106); Magnesium 1.5 mg/dL (1.6-2.6); Sodium Level 141 mmol/L (136-145)
[2019-11-21] MEDS: Insulin Lispro 100 UNIT/ML INSULN.PEN SC ×3 (06:21→16:52)
[2019-11-21 07:19] VITALS: O2SAT 94
[2019-11-21 07:42] LABS: Bedside Glucose 246 mg/dL (70-110)
[2019-11-21] MEDS: Dextrose 5%/0.9% NaCl 1,000 ML 75 ML IV (09:17)
--- NOTE | 2019-11-21 09:38 | PN_ITS ---
Patient Problems: Active and Suspected Problems Suspected cerebrovascular accident (CVA) (Acute) Aspiration pneumonia (Acute) Acute cystitis (Acute) Subjective: Pt states that she is feeling well. PICKLE SOLUTION MAKER and OT at bedside. Pt very interactive but fatigues quickly. Vitals/I&O's: Vital Signs Temp Pulse Resp BP Pulse Ox 98.3 F 90 18 137/88 H 94 11/21/19 04:37 11/21/19 04:40 11/21/19 04:40 11/21/19 04:37 11/21/19 07:19 Oxygen Flow Rate (L/min) 2 Oxygen Delivery Method Room Air Weight: 71.5 kg Body Mass Index (BMI) 27.5 Finger Stick Blood Glucose 69 Intake and Output for Last 24 Hours 11/19/19 11/20/19 11/21/19 23:59 23:59 23:59 Intake Total 360 / 360 2421.25 / 2471.25 1179.5 / 1179.5 Output Total 745 / 745 1300 / 1300 Balance -385 / -385 1121.25 / 1171.25 1179.5 / 1179.5 General: Alert, Cooperative, No apparent distress, Well developed, Well nourished, - - Sitting at EOB and therapies at bedside HEENT: Atraumatic, PERRLA, EOMI, Normocephalic, EAC Clear Oral: Moist Mucosa, No Gingival or Mucosal Lesions/ Ulcerations Neck: Supple, Trachea Midline, Thyroid Normal Size and Texture Lungs: Clear to auscultation, Normal air movement, No rhonchi, No wheeze, No rales Cardiovascular: Regular rate, Regular Rhythm, Normal S1, Normal S2, No murmurs, No Ectopic Activity, No rub noted, No Gallop Abdomen: Bowel Sounds Present, Soft, Non Tender, Non-Distended, Obese Extremities: No clubbing, No cyanosis, No edema, Capillary Refill Less than 3 Seconds, Peripheral Pulses Normal Skin: No rashes, No breakdown Musculoskeletal: No Tenderness to Palpation of Joints or Extremities, Arthritic Changes, - - generalized weakness Lymphatic: No Cervical, Supraclavicular, or Inguinal Adenopathy Neurological: Neuro grossly intact, Facial Droop - R, - - mild dysarthria, fatigues quickly Psych/Mental Status: Normal Affect, Appropriate Microbiology Past 72 Hours 11/15/19 13:55 Blood Culture (Wb) - Anticubital Left Blood Culture - Final No growth in 5 days. 11/15/19 Unknown Sputum, Induced/Lukens Gram Stain - Final 11/15/19 Unknown Sputum, Induced/Lukens Respiratory Culture - Final Streptococcus pneumoniae Presumptive C albicans 11/15/19 14:20 Urine Catheter - [facility] Urine Culture - Final Enterobacter cloacae complex Enterococcus faecalis Laboratory Results 11/20/19 11:02: POC Glucose 218 H 11/20/19 15:27: POC Glucose 228 H 11/20/19 17:28: POC Glucose 221 H 11/20/19 23:30: POC Glucose 246 H 11/21/19 05:36: WBC 8.5, RBC 3.96 L, Hgb 10.8 L, Hct 34.8 L, MCV 87.9, MCH 27.3, MCHC 31.0 L, RDW Std Deviation 50.9 H, RDW Coeff of Fadumo 15.9 H, Plt Count 288, MPV 10.1, Immature Gran % (Auto) 0.600, Neut % (Auto) 58.4, Lymph % (Auto) 33.4, [place] % (Auto) 5.3, Eos % (Auto) 1.7, Baso % (Auto) 0.6, Absolute Neuts (auto) 5.0, Absolute Lymphs (auto) 2.83, Nucleated RBC % 0 11/21/19 05:36: Sodium 141, Potassium 3.0 L, Chloride 110 H, Carbon Dioxide 25.0 , Anion Gap 6, BUN 9, Creatinine 0.67, Estim Creat Clear Calc 40.22, Est GFR (MDRD) Af Amer 111, Est GFR (MDRD) Non-Af 91, BUN/Creatinine Ratio 13.4, Glucose 245 H, Calcium 8.2 L, Magnesium 1.5 L 11/21/19 06:18: POC Glucose 246 H Current Medications Acetaminophen (Acetaminophen 325 Mg Tablet) 650 mg PO Q6H PRN PRN PRN Reason: Pain 1-10 or Fever Albuterol Sulfate (Ventolin Aerosols) 2.5 mg INHALATION Q2H PRN PRN PRN Reason: SOB/Wheezing Aspirin (Aspirin) 300 mg RECTAL DAILY [facility] Last Admin: 11/20/19 12:47 Dose: 300 mg Documented by: Aspirin (Aspirin 81 Mg Tab.Chew) 81 mg PO DAILY@0800 [facility] Calamine/Phenol (Calmoseptine Ointment) 1 applic TOPICAL BID PRN; Protocol PRN Reason: rectal/buttocks irritation Last Admin: 11/20/19 12:51 Dose: 1 applic Documented by: Dextrose (D50w Syringe) 0 gm IV X1 PRN; Protocol PRN Reason: Hypoglycemia Enoxaparin Sodium (Lovenox) 40 mg SC DAILY [facility] Last Admin: 11/20/19 11:12 Dose: 40 mg Documented by: Famotidine (Pepcid) 20 mg PO BID [facility] Last Admin: 11/20/19 22:08 Dose: 20 mg Documented by: Gabapentin (Gabapentin 100 Mg Capsule) 100 mg PO TIDCM [facility] Glucagon () 1 mg IM .X1 PRN PRN Reason: Hypoglycemia Hydralazine HCl (Apresoline Iv) 5 mg IV Q30M PRN PRN Reason: to maintain BP goals Piperacillin Sod/Tazobactam (Sod 3.375 gm/ Sodium Chloride) 50 mls @ 12.5 mls/hr IV Q8 [facility] Last Admin: 11/21/19 06:13 Dose: 12.5 mls/hr Documented by: Sodium Chloride () 250 mls @ 15 mls/hr IV .[id number] PRN PRN Reason: Saline Flush Last Infusion: 11/21/19 06:13 Dose: 0 mls/hr Documented by: Sodium Chloride () 250 mls @ 15 mls/hr IV .[id number] PRN PRN Reason: Additional IVPB Infusion Magnesium Sulfate 2 gm/ Sodium (Chloride) 104 mls @ 52 mls/hr IV X1 ONE Stop: 11/21/19 11:33 Insulin Glargine (Insulin Glargine 100 Units/Ml Pen) 25 units SC DAILY [facility] Labetalol HCl (Trandate) 10 - 20 mg IV Q10M PRN PRN PRN Reason: to Maintain BP Goals Levetiracetam (Levetiracetam Oral Solution 500 Mg/5 Ml) 500 mg PO BID [facility] Memantine (Memantine Hydrochloride 5 Mg Tablet) 5 mg PO BID [facility] Ondansetron HCl (Zofran) 4 mg IV Q8H PRN PRN PRN Reason: NAUSEA/VOMITING Potassium Chloride (Potassium Chl Soln 20 Meq/15 Ml Udc) 40 meq PO X1 ONE Stop: 11/21/19 09:34 Sodium Chloride () 10 - 40 ml IV UD PRN PRN Reason: SALINE FLUSH Last Admin: 11/19/19 11:38 Dose: 10 ml Documented by: Venlafaxine HCl (Venlafaxine Hcl 75 Mg Tablet) 75 mg PO BID [facility] STROKE Vital Signs/Narrative: Vital Signs Pulse Ox 11/21/19 07:19 94 Medical Necessity - Tobacco Use Smoking Status: Never smoker Assessment/Plan All Active Problems Suspected cerebrovascular accident (CVA) (Acute) Aspiration pneumonia (Acute) Acute cystitis (Acute) Acute on recurrent syncope with collapse (Resolved) Acute on recurrent fall (Resolved) Acute Respiratory Failure 2/2 lack of Airway Protection/S.Pneumo PNA/Aspiration PNA -pt was unresponsive and not protecting her airway on admission and was intubated in the ED -was able to be extubated on 11/18/2019 -now resolved and pt is on RA with SpO2 94-98% S. Pneumo PNA/Aspiration PNA -on Zosyn day 07/15 Enterococcus Faecalis UTI -treatment completed as pt has had > 3 days of Abx and infection is uncomplicated Dysphagia -passed for modified diet of puree with thin liquids (sm bites/sips with slow rate) Metabolic Encephalopathy 2/2 Seizures -MRI was neg for infarct -EEG obtained demonstrated an abnormal activity involving the frontal lobe -there was concern about status and the plan was to transfer to [facility] for [facility] hr EEG but pt successfully extubated on 11/17 and [facility] transfer was d/c -continue Keppra and switch to PO liquid today -MS is improving slowly -will need f/u with neurology after d/c DM-2 -at home is on Lantus 65 u at HS, Lispro 6 u with breakfast and lunch and 8 u with dinner, metformin, Actos--> per son doses were going up but pt not taking consistently -will consider d/c of Actos at d/c -currently on 10 u Lantus and SSI -BGT remain elevated--> increase to 25 u Lantus and Mod dose SSI with meals -monitor with changes HPL -continue Statin once able to take PO Hypokalemia -40 mEq today -repeat in am -correct mag Hypomagnesemia -2 gm bolus -repeat in am Anemia -appears chronic and stable H/O DVT -completed treatment H/O stroke -continue statin and asa once able to take PO GERD -H2 gisela Diabetic Neuropathy -restart Gabapentin 100 tid Depression/Anxiety -Effexor 75 BID -hold zyprexa Dementia -restart Namenda -pt still living alone and mostly IADL's at this time per son DVT Prophylaxis -Lovenox Code Status -Full Dispo -TCU tomorrow if able Inpatient E&M: 27467 Subs Hosp L3
[2019-11-21 10:30] VITALS: BP 145/84; PULSE 86; RESP 14; TEMP 36.6; O2SAT 96
[2019-11-21] MEDS: Gabapentin 100 MG Capsule PO ×2 (11:10→16:54)
[2019-11-21] MEDS: Famotidine 20 MG Tablet PO ×2 (11:10→23:26)
[2019-11-21] MEDS: Memantine Hydrochloride 5 MG Tablet PO ×2 (11:11→23:26)
[2019-11-21] MEDS: Enoxaparin 40 MG/0.4 ML Syringe SC (11:11)
[2019-11-21] MEDS: Venlafaxine HCl 75 MG Tablet PO ×2 (11:11→23:27)
[2019-11-21] MEDS: Aspirin 81 MG TAB.CHEW PO (11:11)
[2019-11-21] MEDS: levETIRAcetam Oral Solution 500 MG/5 ML PO ×2 (11:12→23:27)
[2019-11-21 12:16] LABS: Bedside Glucose 288 mg/dL (70-110)
--- NOTE | 2019-11-21 13:11 | CASEMGMT ---
Social Work Note SW updated that pt is not medically cleared for discharge today, possibly tomorrow. BRAYAN placed a call to Therese in TCU and left message updating her on this. At this time, pre-cert is still pending. Plan: TCU pending pre-cert Hermelinda Matos MSW, SENIOR DRAFTER
[2019-11-21 13:53] VITALS: BMI 27.5
[2019-11-21 16:56] VITALS: BP 140/72; PULSE 84; RESP 14; TEMP 36.9; O2SAT 97
[2019-11-21 17:10] LABS: Bedside Glucose 245 mg/dL (70-110)
[2019-11-21 20:43] VITALS: BMI 27.5
[2019-11-21 22:54] VITALS: BP 158/78; PULSE 80; RESP 18; TEMP 36.7; O2SAT 94
[2019-11-21] MEDS: Menthol/Lanolin/Calamine/Znox 113 GM Tube 1 APPLIC TOPICAL (23:05)
[2019-11-21 23:06] LABS: Bedside Glucose 128 mg/dL (70-110)
[2019-11-21] MEDS: 0.9% Saline Lock 10 ML Syringe IV (23:26)
[2019-11-22 03:10] VITALS: BP 160/72; PULSE 81; RESP 18; TEMP 36.9; O2SAT 94
[2019-11-22] MEDS: Menthol/Lanolin/Calamine/Znox 113 GM Tube 1 APPLIC TOPICAL ×2 (06:01→20:15)
[2019-11-22 06:22] LABS: Anion Gap 7 (5-15); BUN 8 mg/dL (7-18); BUN/Creat Ratio 11.3 RATIO (10-20); Calcium,Total 8.6 mg/dL (8.5-10.1); Chloride 110 mmol/L (98-107); EST Glomerular Filtration Rate 87 mL/min (>60); Est Glom Filt Rate - Afr Amer 105 mL/min (>60); Estimated Creatinine Clearance 40.22 ml/min; Glucose 166 mg/dL (74-106); Magnesium 1.8 mg/dL (1.6-2.6); Sodium Level 143 mmol/L (136-145)
[2019-11-22 06:25] LABS: Bedside Glucose 167 mg/dL (70-110)
[2019-11-22] MEDS: Insulin Lispro 100 UNIT/ML INSULN.PEN SC ×3 (06:50→16:59)
[2019-11-22] MEDS: Gabapentin 100 MG Capsule PO ×3 (08:38→16:58)
[2019-11-22] MEDS: Venlafaxine HCl 75 MG Tablet PO ×2 (08:38→22:29)
[2019-11-22] MEDS: Aspirin 81 MG TAB.CHEW PO (08:38)
[2019-11-22] MEDS: Memantine Hydrochloride 5 MG Tablet PO ×2 (08:38→22:29)
[2019-11-22] MEDS: Famotidine 20 MG Tablet PO ×2 (08:38→22:29)
[2019-11-22] MEDS: Enoxaparin 40 MG/0.4 ML Syringe SC (08:51)
[2019-11-22] MEDS: levETIRAcetam Oral Solution 500 MG/5 ML PO ×2 (08:52→22:30)
[2019-11-22 09:15] VITALS: BP 153/72; PULSE 74; RESP 16; TEMP 37.1; O2SAT 95
--- NOTE | 2019-11-22 09:44 | CASEMGMT ---
Addendum entered by Hermelinda Matos 11/22/19 11:05: BRAYAN received call from Ria in TCU. Aaliyah is stating that TCU is not in network. SW in to speak with pt and pt's son Ferdinand present in room. SW updated pt and Anjue that Aaliyah is stating TCU is not in network so pt would need to go to different SNF. BRAYAN provided Ferdinand with list of SNF that accept pt's insurance. Ephraimhavengil states he would like to review list and then let this worker know plan. Original Note: Social Work Note SW received call message from Ria in TCU stating [email or web address] [place] [facility] [place]. Therese had mentioned to Ria that she had this problem earlier in the year and thought it had resolved. Ria states she will be speaking with Therese around 10:30-11:00am again this morning to confirm if TCU takes pt's insurance or not and if TCU doesn't take pt's insurance, then a new referral and new precert will need to be submitted. BRAYAN waiting for call back from Ria in TCU. Hermelinda Matos CABLE TENDER, TOW MOTOR OPERATOR
[2019-11-22] MEDS: amLODIPine 10 MG Tablet PO (10:57)
--- NOTE | 2019-11-22 11:34 | PCM.PN.HOSP ---
Patient Problems: Active and Suspected Problems Suspected cerebrovascular accident (CVA) (Acute) Aspiration pneumonia (Acute) Acute cystitis (Acute) Subjective: Pt has no complaints. Still with some confusion to month and year (Dec 2014) but knows where she is and the POTUS. Denies pain. Fatigues easily. Her insurance isn't contracted with the TCU so a new place will need to be found and precert initiated. Vitals/I&O's: Vital Signs Temp Pulse Resp BP Pulse Ox 98.7 F 74 16 153/72 H 95 11/22/19 09:15 11/22/19 09:15 11/22/19 09:15 11/22/19 09:15 11/22/19 09:15 Oxygen Flow Rate (L/min) 2 Oxygen Delivery Method Room Air Weight: 72.439 kg Body Mass Index (BMI) 27.5 Finger Stick Blood Glucose 69 Intake and Output for Last 24 Hours 11/20/19 11/21/19 11/22/19 23:59 23:59 23:59 Intake Total 2421.25 / 2471.25 2565.50 / 2565.50 374.25 / 374.25 Output Total 1300 / 1300 Balance 1121.25 / 1171.25 2565.50 / 2565.50 374.25 / 374.25 General: Alert, Cooperative, No apparent distress, Well developed, Well nourished, - - WF who appears older than stated age is reclining in the chair and appears comfortable, non-toxic appearing Oral: Moist Mucosa Neck: Supple, Trachea Midline Lungs: Clear to auscultation, Normal air movement, No rhonchi, No wheeze, No rales Cardiovascular: Regular rate, Regular Rhythm, Normal S1, Normal S2, No murmurs, No Ectopic Activity, No rub noted, No Gallop Abdomen: Bowel Sounds Present, Soft, Non Tender, Non-Distended, Obese Extremities: No clubbing, No cyanosis, No edema, Capillary Refill Less than 3 Seconds, Peripheral Pulses Normal Skin: No rashes, No breakdown Musculoskeletal: Arthritic Changes Psych/Mental Status: Normal Affect, Appropriate, - - Oriented to self, place and POTUS tells me its Dec Microbiology Past 72 Hours 11/15/19 13:55 Blood Culture (Wb) - Anticubital Left Blood Culture - Final No growth in 5 days. 11/15/19 Unknown Sputum, Induced/Lukens Gram Stain - Final 11/15/19 Unknown Sputum, Induced/Lukens Respiratory Culture - Final Streptococcus pneumoniae Presumptive C albicans Laboratory Results 11/21/19 11:04: POC Glucose 288 H 11/21/19 16:51: POC Glucose 245 H 11/21/19 22:52: POC Glucose 128 H 11/22/19 05:45: Sodium 143, Potassium 3.0 L, Chloride 110 H, Carbon Dioxide 26.0, Anion Gap 7, BUN 8, Creatinine 0.70, Estim Creat Clear Calc 40.22, Est GFR (MDRD) Af Amer 105, Est GFR (MDRD) Non-Af 87, BUN/Creatinine Ratio 11.3, Glucose 166 H, Calcium 8.6, Magnesium 1.8 11/22/19 06:18: POC Glucose 167 H Current Medications Acetaminophen (Acetaminophen 325 Mg Tablet) 650 mg PO Q6H PRN PRN PRN Reason: Pain 1-10 or Fever Albuterol Sulfate (Ventolin Aerosols) 2.5 mg INHALATION Q2H PRN PRN PRN Reason: SOB/Wheezing Amlodipine Besylate (Amlodipine 10 Mg Tablet) 10 mg PO DAILY [facility] Last Admin: 11/22/19 10:57 Dose: 10 mg Documented by: Aspirin (Aspirin) 300 mg RECTAL DAILY [facility] Last Admin: 11/22/19 08:36 Dose: Not Given Documented by: Aspirin (Aspirin 81 Mg Tab.Chew) 81 mg PO DAILY@0800 [facility] Last Admin: 11/22/19 08:38 Dose: 81 mg Documented by: Calamine/Phenol (Calmoseptine Ointment) 1 applic TOPICAL BID PRN; Protocol PRN Reason: rectal/buttocks irritation Last Admin: 11/22/19 06:01 Dose: 1 applic Documented by: Dextrose (D50w Syringe) 0 gm IV X1 PRN; Protocol PRN Reason: Hypoglycemia Enoxaparin Sodium (Lovenox) 40 mg SC DAILY [facility] Last Admin: 11/22/19 08:51 Dose: 40 mg Documented by: Famotidine (Pepcid) 20 mg PO BID [facility] Last Admin: 11/22/19 08:38 Dose: 20 mg Documented by: Gabapentin (Gabapentin 100 Mg Capsule) 100 mg PO TIDCM [facility] Last Admin: 11/22/19 11:10 Dose: 100 mg Documented by: Glucagon () 1 mg IM .X1 PRN PRN Reason: Hypoglycemia Hydralazine HCl (Apresoline Iv) 5 mg IV Q30M PRN PRN Reason: to maintain BP goals Piperacillin Sod/Tazobactam (Sod 3.375 gm/ Sodium Chloride) 50 mls @ 12.5 mls/hr IV Q8 [facility] Stop: 11/22/19 23:55 Last Infusion: 11/22/19 10:10 Dose: Infused Documented by: Sodium Chloride () 250 mls @ 15 mls/hr IV .[id number] PRN PRN Reason: Saline Flush Last Infusion: 11/22/19 10:10 Dose: 15 mls/hr Documented by: Sodium Chloride () 250 mls @ 15 mls/hr IV .[id number] PRN PRN Reason: Additional IVPB Infusion Insulin Glargine (Insulin Glargine 100 Units/Ml Pen) 25 units SC DAILY [facility] Last Admin: 11/22/19 11:04 Dose: 25 u Documented by: Insulin Human Lispro (Insulin Lispro 100 Unit/Ml Insuln.Pen) 0 unit SC ACHS [facility]; Protocol Last Admin: 11/22/19 11:05 Dose: 3 u Documented by: Labetalol HCl (Trandate) 10 - 20 mg IV Q10M PRN PRN PRN Reason: to Maintain BP Goals Levetiracetam (Levetiracetam Oral Solution 500 Mg/5 Ml) 500 mg PO BID [facility] Last Admin: 11/22/19 08:52 Dose: 500 mg Documented by: Memantine (Memantine Hydrochloride 5 Mg Tablet) 5 mg PO BID [facility] Last Admin: 11/22/19 08:38 Dose: 5 mg Documented by: Ondansetron HCl (Zofran) 4 mg IV Q8H PRN PRN PRN Reason: NAUSEA/VOMITING Potassium Chloride (Potassium Chl Soln 20 Meq/15 Ml Udc) 40 meq PO DAILY [facility] Last Admin: 11/22/19 10:58 Dose: 40 meq Documented by: Sodium Chloride () 10 - 40 ml IV UD PRN PRN Reason: SALINE FLUSH Last Admin: 11/21/19 23:26 Dose: 10 ml Documented by: Venlafaxine HCl (Venlafaxine Hcl 75 Mg Tablet) 75 mg PO BID [facility] Last Admin: 11/22/19 08:38 Dose: 75 mg Documented by: STROKE Vital Signs/Narrative: Vital Signs Temp Pulse Resp BP Pulse Ox 11/22/19 09:15 98.7 F 74 16 153/72 H 95 Medical Necessity - Tobacco Use Smoking Status: Never smoker Assessment/Plan All Active Problems Suspected cerebrovascular accident (CVA) (Acute) Aspiration pneumonia (Acute) Acute cystitis (Acute) Acute on recurrent syncope with collapse (Resolved) Acute on recurrent fall (Resolved) Acute Respiratory Failure 2/2 lack of Airway Protection/S.Pneumo PNA/Aspiration PNA -pt was unresponsive and not protecting her airway on admission and was intubated in the ED -was able to be extubated on 11/18/2019 -now resolved and pt is on RA with SpO2 95% S. Pneumo PNA/Aspiration PNA -on Zosyn day 08/14--> stop time placed Enterococcus Faecalis UTI -treatment completed as pt has had > 3 days of Abx and infection is uncomplicated Dysphagia -passed for modified diet of puree with thin liquids (sm bites/sips with slow rate) Metabolic Encephalopathy 2/2 Seizures -MRI was neg for infarct -EEG obtained demonstrated an abnormal activity involving the frontal lobe -there was concern about status and the plan was to transfer to [facility] for 24 hr EEG but pt successfully extubated on 11/17 and [facility] transfer was d/c -continue Keppra PO liquid today -MS is improving slowly -will need f/u with neurology after d/c DM-2 -at home is on Lantus 65 u at HS, Lispro 6 u with breakfast and lunch and 8 u with dinner, metformin, Actos--> per son doses were going up on Lantus doses but pt not taking consistently and he this she was getting too much insulin -will consider d/c of Actos at d/c -increase to Lantus 30 u with am fasting BGT of 166 and add 8 u log with meals + SSI HPL -continue Statin Hypokalemia -40 mEq again today -repeat in am Hypomagnesemia -resolved Anemia -appears chronic and stable H/O DVT -completed treatment H/O stroke -continue statin and asa GERD -H2 gisela Diabetic Neuropathy -cont Gabapentin 100 tid Depression/Anxiety -Effexor 75 BID -hold zyprexa Dementia -continue Namenda -pt still living alone and mostly IADL's at this time per son DVT Prophylaxis -Lovenox Code Status -Full Dispo -medically stable for d/c -TCU not able to take pt 2/2 insurance issues and new plan is being formulated Inpatient E&M: 83761 Subs Hosp L2
[2019-11-22 12:06] VITALS: BMI 27.5
[2019-11-22 12:16] LABS: Bedside Glucose 248 mg/dL (70-110)
[2019-11-22 16:55] VITALS: BP 142/50; PULSE 91; RESP 16; TEMP 37; O2SAT 94
[2019-11-22] MEDS: Insulin Lispro 100 UNIT/ML INSULN.PEN 8 UNIT SC (16:59)
[2019-11-22 21:05] VITALS: BP 134/70; PULSE 71; RESP 18; TEMP 37.2; O2SAT 93
[2019-11-22 22:45] LABS: Bedside Glucose 78 mg/dL (70-110)
[2019-11-23 00:46] LABS: Bedside Glucose 209 mg/dL (70-110)
[2019-11-23 03:10] VITALS: BP 151/86; PULSE 82; RESP 18; TEMP 37; O2SAT 92
[2019-11-23 05:17] VITALS: BMI 27.5
[2019-11-23 05:19] VITALS: BMI 27.5
[2019-11-23 07:00] LABS: Anion Gap 7 (5-15); BUN 7 mg/dL (7-18); BUN/Creat Ratio 10.2 RATIO (10-20); Calcium,Total 8.8 mg/dL (8.5-10.1); Chloride 109 mmol/L (98-107); Creatinine, Serum 0.68 mg/dL (0.55-1.02); EST Glomerular Filtration Rate 90 mL/min (>60); Est Glom Filt Rate - Afr Amer 109 mL/min (>60); Estimated Creatinine Clearance 40.22 ml/min; Glucose 134 mg/dL (74-106); Potassium 3.1 mmol/L (3.5-5.1); Sodium Level 142 mmol/L (136-145)
[2019-11-23 07:07] VITALS: O2SAT 93
[2019-11-23 07:30] VITALS: BP 146/76; PULSE 92; RESP 18; TEMP 37.3; O2SAT 99
[2019-11-23] MEDS: Aspirin 81 MG TAB.CHEW PO (07:37)
[2019-11-23] MEDS: Gabapentin 100 MG Capsule PO (07:37)
[2019-11-23] MEDS: amLODIPine 10 MG Tablet PO (07:40)
[2019-11-23] MEDS: Memantine Hydrochloride 5 MG Tablet PO (07:40)
[2019-11-23] MEDS: Enoxaparin 40 MG/0.4 ML Syringe SC (07:40)
[2019-11-23] MEDS: levETIRAcetam Oral Solution 500 MG/5 ML PO (07:41)
[2019-11-23] MEDS: Insulin Lispro 100 UNIT/ML INSULN.PEN 8 UNIT SC (07:41)
[2019-11-23] MEDS: Venlafaxine HCl 75 MG Tablet PO (07:41)
[2019-11-23 08:01] LABS: Bedside Glucose 134 mg/dL (70-110)
--- NOTE | 2019-11-23 09:06 | DCINST_ITS ---
- Discharge Diagnoses Current Active Problems: Current Active and Chronic Problems Suspected cerebrovascular accident (CVA) (Acute) Aspiration pneumonia (Acute) Acute cystitis (Acute) You will use the following diet at home:: Calorie/Carbohydrate Controlled (specify 1200, 1400, etc) Your food should be the consistency of: Mechanical soft (ground) - Pt sitting upright and small bites, please supervise at all times while eating Your liquids should be the consistency of: Regular/Thin Discharge Activity: Return to Normal Activity, No Restrictions Call your doctor if you observe: Fever of 101 or Higher Allergies/Adverse Reactions: Allergies atorvastatin calcium [From Lipitor] Allergy (Verified 11/16/18 19:05) Unknown calcium Allergy (Verified 11/16/18 19:05) Unknown ibuprofen [From Motrin] Allergy (Verified 11/16/18 19:05) Unknown Medications to take at Discharge Aspirin [Aspirin, Baby] 81 mg PO DAILY@0800 03/09/13 Gabapentin [Neurontin] 100 mg PO TID 03/09/13 Metformin HCl [Glucophage] 1,000 mg PO BID 03/09/13 Clonazepam 0.5 mg PO BID PRN PRN 10/19/13 Omeprazole [Prilosec] 20 mg PO BID 10/19/13 Venlafaxine HCl [Effexor] 75 mg PO BID 10/19/13 Albuterol Inhaler [Ventolin Hfa] 1 puff INHALATION Q4H PRN PRN 01/03/14 Olanzapine [Zyprexa] 5 mg PO QHS 01/03/14 Cholecalciferol (VIT D3) [Vitamin D3] 1,000 mg PO DAILY 01/06/17 Rosuvastatin Calcium [Crestor] 20 mg PO QHS 01/06/17 Calcium Carbonate 500 mg PO BID 11/16/18 Hydrocortisone 2.5% Crm [Hytone] 1 applic TOPICAL BID 11/16/18 Memantine HCl 5 mg PO BID 11/16/18 Acetaminophen [Tylenol] 1,000 mg PO Q8H PRN PRN #20 tab 11/18/18 Amlodipine [Norvasc] 10 mg PO DAILY #30 tab 11/23/19 Insulin Glargine [Lantus SoloStar Pen] 30 units SC DAILY #0 pen 11/23/19 Insulin Lispro [Humalog KwikPen] 8 unit SC TIDAC insuln.pen 11/23/19 Potassium Chl Soln 20 meq PO DAILY #1 udc 11/23/19 levETIRAcetam oral solution [Keppra Solution] 500 mg PO BID #1 udc 11/23/19 The following prescriptions were given: levETIRAcetam oral solution [Keppra Solution] 500 mg PO BID #1 udc Transmission Status: [facility] to [id number] Amlodipine [Norvasc] 10 mg PO DAILY #30 tab Transmission Status: [facility] to [id number] Potassium Chl Soln 20 meq PO DAILY #1 udc Transmission Status: [facility]ending to [id number] Primary Care Physician: Jh Hewitt MD [Primary Care Provider] - Please follow up with your Primary Care Physician in: 1 week-call for appt today Test Results: Test results from this visit will be discussed in further detail at your follow- up appointment, if applicable.
[2019-11-23] MEDS: Famotidine 20 MG Tablet PO (09:13)
--- NOTE | 2019-11-23 17:48 | DS.PCM_ITS ---
Discharge Date and Diagnosis - Problem List Patient Problems: Active and Suspected Problems Suspected cerebrovascular accident (CVA) (Acute) Aspiration pneumonia (Acute) Acute cystitis (Acute) Date of Admission: 11/15/19 Date of Discharge: 11/23/19 - Primary Discharge Diagnosis Acute Problems: Active Problems Suspected cerebrovascular accident (CVA) (Acute) Aspiration pneumonia (Acute) Acute cystitis (Acute) - Secondary Discharge Diagnosis Chronic Problems: Chronic Problems Peripheral vascular disease (Chronic) History of DVT (deep vein thrombosis) (Chronic) 1982 basal ganglion bleed, history of (Chronic) Hyperlipidemia (Chronic) Type 2 diabetes mellitus (Chronic) History of CVA (cerebrovascular accident) (Chronic) Anxiety disorder (Chronic) Hospital Course and Treatment Imaging Results: STUDY: MRI BRAIN WITHOUT CONTRAST REASON FOR EXAM: Female, 74 years old. cva, unresponsive TECHNIQUE: Standardized multiplanar fat and water weighted pulse sequences were obtained. COMPARISON: CT 11/15/2019, MRI 11/11/2009 FINDINGS: There is mild cerebral atrophy with widening of the extra-axial spaces and ventricular dilatation. There are a limited number of small white matter hyperintensities, distributed throughout the deep white matter tracts of the cerebral hemispheres, consistent with mild chronic white matter ischemic changes. There is no evidence for recent intracranial ischemia or other cause of cytotoxic edema on diffusion weighted imaging (DWI). Normal T2* images of the brain without demonstrated susceptibility artifact. There is no demonstrated hemosiderin stain. Normal bilateral basal ganglia. Normal thalami. There is no extra-axial fluid accumulation. Normal flow voids within the major intracranial circulation suggesting patency by spin echo criteria. Normal sella turcica, pituitary gland, infundibular stalk, optic chiasm and hypothalamus. Normal tectal plate and pineal gland. Normal midbrain, octavio and medulla. Normal cerebellum. Normal basal cisterns. 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 Normal bilateral internal auditory canals. There are bilateral ocular lens implants with otherwise normal intraorbital contents. Normal visualized paranasal sinuses. Normal calvarium and skull base. Normal visualized soft tissue structures. Normal visualized upper cervical spine. MRI/Brain without Contrast IMPRESSION: Involutional changes of the brain, as described above. No acute infarct. Electronically Signed: Benjy Raphael MD at 13:36 EDT Tel , Service support , EEG obtained demonstrated an abnormal activity involving the frontal lobe Reason For Study: TIA/CVA Procedure This was a 2D Doppler, Color Flow transthoracic echocardiogram. The study was technically difficult. Contrast injection was performed. Difficult bubble study, IV placed in patients left wrist, nurse Charley in ICU pushed bubble x2 (first no succuess, second little success). Exam performed portable in ICU/CCU. Left Ventricle Normal LV size. The estimated ejection fraction is 70 %. No evidence for diastolic dysfunction. No regional wall motion abnormalities noted. Right Ventricle Normal RV size. Normal systolic function. Atria Normal left atrium. Normal right atrium. bubble study was suboptimal. Mitral Valve There is moderate mitral annular calcification. There is no mitral valve stenosis. No mitral valve insufficiency. Tricuspid Valve There is no tricuspid stenosis. Trivial tricuspid valve insufficiency. Pulmonary artery systolic pressure is 30 mmHg. Aortic Valve Moderate diffuse aortic valve calcification. There is no aortic stenosis. No aortic valve insufficiency. Pulmonic Valve There is no pulmonic valvular stenosis. No pulmonic valve insufficiency identified. Great Vessels Normal aortic root. Pericardium/Pleural No pericardial effusion. Medication Performed a rapid injection of agitated mix of 9 cc saline and 1cc air to assess for atrial septal defect. MMode/2D Measurements & Calculations LVIDd: 2.6 cm IVSd: 1.6 cm LA dimension: 3.3 cm LVIDs: 1.8 cm LVPWd: 1.2 cm RVDd: 3.3 cm FS: 29.4 % _ LAV(MOD-bp): 30.2 ml LA A4 area: 14.4 cm2 RA A4 area: 12.5 cm2 LAV(MOD-bp) Indexed: 16.6 ml/m2 LAV(MOD-sp2): 25.1 ml LAV(MOD-sp4): 36.6 ml Time Measurements MV dec time: 0.29 sec Doppler Measurements & Calculations MV E max rubio: 92.7 cm/sec Lat Peak E' Rubio: 6.7 cm/sec Med Peak E' Rubio: 6.7 cm/sec MV A max rubio: 158.0 cm/sec E/E' lat: 13.8 E/E' med: 13.8 MV E/A: 0.59 _ MV V2 max: 195.5 cm/sec MV P1/2t max rubio: 126.2 cm/sec Ao V2 max: 133.6 cm/sec MV max P.3 mmHg MV P1/2t: 67.6 msec Ao max P.1 mmHg MV V2 mean: 103.3 cm/sec MV dec slope: 546.3 cm/sec2 MV mean P.1 mmHg MV V2 VTI: 36.2 cm MVA(P1/2t): 3.3 cm2 _ LV V1 max: 112.2 cm/sec PA V2 max: 127.3 cm/sec TR max rubio: 225.6 cm/sec LV V1 max P.0 mmHg TR max P.4 mmHg Interpretation Summary The estimated ejection fraction is 70 %. No evidence for diastolic dysfunction. There is moderate mitral annular calcification. Moderate diffuse aortic valve calcification. Operations: None Procedures: 2-D Echocardiogram, Electroencephalogram, - - MRI Summary of Care Provided: Acute Respiratory Failure 2/2 lack of Airway Protection/S.Pneumo PNA/Aspiration PNA -pt was unresponsive and not protecting her airway on admission and was intubated in the ED -was able to be extubated on 11/18/2019 -now resolved and pt is on RA with SpO2 >92% for several days S. Pneumo PNA/Aspiration PNA -abx completed 11/23/2019 Enterococcus Faecalis UTI -treatment completed as pt has had > 3 days of Abx and infection is uncomplicated Dysphagia -passed for modified diet of mech soft with thin liquids (sm bites/sips with slow rate) Metabolic Encephalopathy 2/2 Seizures -MRI was neg for infarct -EEG obtained demonstrated an abnormal activity involving the frontal lobe -there was concern about status and the plan was to transfer to [facility] for 24 hr EEG but pt successfully extubated on 11/17 and [facility] transfer was d/c -continue Keppra PO liquid today 500 mg BID -MS is improving slowly and per son close to baseline -will need f/u with neurology after d/c--> son aware and appt made DM-2 -at home is on Lantus 65 u at HS, Lispro 6 u with breakfast and lunch and 8 u with dinner, metformin, Actos--> per son doses were going up on Lantus doses but pt not taking consistently and he this she was getting too much insulin -discharged on Lantus 30 u and add 8 u log with meals + SSI and d/c actos HPL -continue Statin Hypokalemia -40 mEq again today -start 20 mEq daily at home of the liquid -will need BMP in 1 week Hypomagnesemia -resolved Anemia -appears chronic and stable H/O DVT -completed treatment H/O stroke -continue statin and asa GERD -H2 gisela Diabetic Neuropathy -cont Gabapentin 100 tid Depression/Anxiety -Effexor 75 BID -hold zyprexa Dementia -continue Namenda -pt still living alone and mostly IADL's at this time per son -pt will have 31/08 care at home and receive home health services Patient Problems: Active and Suspected Problems Suspected cerebrovascular accident (CVA) (Acute) Aspiration pneumonia (Acute) Acute cystitis (Acute) Subjective: Pt states that she is feeling well and is ready to go home. - Physical Exam Vitals/I&O's: Vital Signs Temp Pulse Resp BP Pulse Ox 99.2 F H 92 18 146/76 H 99 11/23/19 07:30 11/23/19 07:30 11/23/19 07:30 11/23/19 07:30 11/23/19 07:30 Oxygen Flow Rate (L/min) 2 Oxygen Delivery Method Room Air Weight: 71.3 kg Body Mass Index (BMI) 27.5 Finger Stick Blood Glucose 69 Intake and Output for Last 24 Hours 11/21/19 11/22/19 11/23/19 23:59 23:59 23:59 Intake Total 2565.50 / 2565.50 2051. / 300 / 300 Balance 2565.50 / 2565.50 2051. / 300 / 300 General: Alert, Cooperative, No apparent distress, Well developed, Well nourished HEENT: Atraumatic, Normocephalic Oral: Moist Mucosa Neck: Supple, Trachea Midline Lungs: Clear to auscultation, Normal air movement, No rhonchi, No wheeze, No rales Cardiovascular: Regular rate, Regular Rhythm, Normal S1, Normal S2, No murmurs, No rub noted, No Gallop Abdomen: Bowel Sounds Present, Soft, Non Tender, Non-Distended, No hernias noted Extremities: No clubbing, No cyanosis, No edema, Capillary Refill Less than 3 Seconds, Peripheral Pulses Normal Skin: No rashes, No breakdown Neurological: Neuro grossly intact Psych/Mental Status: Normal Affect, - - pleasantly confused Microbiology Past 72 Hours 11/15/19 13:55 Blood Culture (Wb) - Anticubital Left Blood Culture - Final No growth in 5 days. Laboratory Results 11/22/19 16:54: POC Glucose 209 H 11/22/19 22:33: POC Glucose 78 11/23/19 06:25: Sodium 142, Potassium 3.1 L, Chloride 109 H, Carbon Dioxide 26.0, Anion Gap 7, BUN 7, Creatinine 0.68, Estim Creat Clear Calc 40.22, Est GFR (MDRD) Af Amer 109, Est GFR (MDRD) Non-Af 90, BUN/Creatinine Ratio 10.2, Glucose 134 H, Calcium 8.8 11/23/19 07:34: POC Glucose 134 H Discharge Activity: Return to Normal Activity, No Restrictions Call your doctor if you observe: Fever of 101 or Higher Home Medications: Medications to take at Discharge Aspirin [Aspirin, Baby] 81 mg PO DAILY@0800 03/09/13 Gabapentin [Neurontin] 100 mg PO TID 03/09/13 Metformin HCl [Glucophage] 1,000 mg PO BID 03/09/13 Clonazepam 0.5 mg PO BID PRN PRN 10/19/13 Omeprazole [Prilosec] 20 mg PO BID 10/19/13 Venlafaxine HCl [Effexor] 75 mg PO BID 10/19/13 Albuterol Inhaler [Ventolin Hfa] 1 puff INHALATION Q4H PRN PRN 01/03/14 Olanzapine [Zyprexa] 5 mg PO QHS 01/03/14 Cholecalciferol (VIT D3) [Vitamin D3] 1,000 mg PO DAILY 01/06/17 Rosuvastatin Calcium [Crestor] 20 mg PO QHS 01/06/17 Calcium Carbonate 500 mg PO BID 11/16/18 Hydrocortisone 2.5% Crm [Hytone] 1 applic TOPICAL BID 11/16/18 Memantine HCl 5 mg PO BID 11/16/18 Acetaminophen [Tylenol] 1,000 mg PO Q8H PRN PRN #20 tab 11/18/18 Amlodipine [Norvasc] 10 mg PO DAILY #30 tab 11/23/19 Insulin Glargine [Lantus SoloStar Pen] 30 units SC DAILY #0 pen 11/23/19 Insulin Lispro [Humalog KwikPen] 8 unit SC TIDAC insuln.pen 11/23/19 Potassium Chl Soln 20 meq PO DAILY #1 udc 11/23/19 levETIRAcetam oral solution [Keppra Solution] 500 mg PO BID #1 udc 11/23/19 Following Prescriptions Were Given to Patient: levETIRAcetam oral solution [Keppra Solution] 500 mg PO BID #1 udc Transmission Status: [id number] Amlodipine [Norvasc] 10 mg PO DAILY #30 tab Transmission Status: [id number] Potassium Chl Soln 20 meq PO DAILY #1 udc Transmission Status: [facility] by [id number] Primary Care Physician: Jh Hewitt MD [Primary Care Provider] - Please follow up with your Primary Care Physician in: 1 week-call for appt today Please Follow Up With: Cesar Tinoco PA Medical Necessity - Tobacco Use Smoking Status: Never smoker Meaningful Use Info Meaningful Use Diagnoses (Choose all that apply): None applicable Inpatient E&M: [id number] [facility] Hosp
--- NOTE | 2019-11-24 16:27 | CASEMGMT ---
RAFAT HIGGINBOTHAM Discharge Follow-up Phone Call: ADAM: 3 Strata: 13 Call Date: 11/24/19 Discharge Date: 11/23/19 Time of Call: 1430 Duration: 5 min Admitting Diagnosis: AMS RAFAT HIGGINBOTHAM completed follow-up phone call after recent hospitalization. Son Ferdinand states patient is doing well and working with exercises. RAFAT HIGGINBOTHAM updated son that [facility] Son had no questions or concerns at this time. Son was able to picker operator meds without any issues. Patient has follow-up appts scheduled. Son has no further questions or concerns at this time.
== END 2019-11-23 10:39 | disposition home health service (06) | DRG 208 ==
LOC: ED 12:10 → ICU 12:21 → MS3 11-19 09:16
PROVIDERS: Internal Medicine Critical Care Medicine; Admitting Provider Internal Medicine; Emergency Provider Emergency Medicine; PCP Internal Medicine; Visit Provider Internal Medicine
DX: J69.0 Pneumonitis due to inhalation of food and vomit (principal); J96.01 Acute respiratory failure with hypoxia; N30.00 Acute cystitis without hematuria; B95.2 Enterococcus as the cause of diseases classified elsewhere; R56.9 Unspecified convulsions; J13 Pneumonia due to Streptococcus pneumoniae; E87.6 Hypokalemia; E83.42 Hypomagnesemia; R13.10 Dysphagia, unspecified; E11.51 Type 2 diabetes mellitus with diabetic peripheral angiopathy without gangrene; E11.42 Type 2 diabetes mellitus with diabetic polyneuropathy; J44.9 Chronic obstructive pulmonary disease, unspecified; F03.90 Unspecified dementia, unspecified severity, without behavioral disturbance, psychotic disturbance, mood disturbance, and anxiety; E78.5 Hyperlipidemia, unspecified; K21.9 Gastro-esophageal reflux disease without esophagitis; F32.9 Major depressive disorder, single episode, unspecified; F41.9 Anxiety disorder, unspecified; F17.200 Nicotine dependence, unspecified, uncomplicated; Z79.4 Long term (current) use of insulin; Z79.82 Long term (current) use of aspirin; Z79.899 Other long term (current) drug therapy; Z86.718 Personal history of other venous thrombosis and embolism; Z86.73 Personal history of transient ischemic attack (TIA), and cerebral infarction without residual deficits
CPT/HCPCS: 31500; 31720; 36415; 36600; 51702; 70450; 70496; 70498; 70551; 71045; 80048; 80061; 80076; 81001; 82140; 82803; 82962; 83605; 83735; 84443; 84484; 85025; 85610; 85730; 87040; 87070; 87077; 87086; 87088; 87186; 87205; 87449; 87635; 87641; 92523; 92526; 93005; 93306; 94002; 94003; 94640; 94660; 94667; 94762; 95812; 95819; 97110; 97116; 97161; 97162; 97165; 97530; 97535; 97802; 97803; 99251; 99285; J7030; J7040; J7050; Q9957; Q9967; A4216; G0463; J0295; J0330; U0003

== ENCOUNTER 2019-12-07 15:04 | Outpatient (RCR) | payer MEDICARE, MEDICAID, SELFPAY ==
[2019-12-07 16:24] LABS: Anion Gap 6 (5-15); BUN 28 mg/dL (7-18); BUN/Creat Ratio 34.7 RATIO (10-20); Calcium,Total 9.2 mg/dL (8.5-10.1); Chloride 108 mmol/L (98-107); Creatinine, Serum 0.81 mg/dL (0.55-1.02); EST Glomerular Filtration Rate 74 mL/min (>60); Est Glom Filt Rate - Afr Amer 90 mL/min (>60); Glucose 113 mg/dL (74-106); Potassium 4.6 mmol/L (3.5-5.1); Sodium Level 142 mmol/L (136-145)
[2019-12-13 09:11] LABS: KEPPRA (LEVETIRACETAM) 17.8 ug/mL (10.0-40.0)
== END 2019-12-07 18:00 | disposition home or self-care (01) ==
LOC: HHLAB 15:04
PROVIDERS: PCP Internal Medicine; Referring Provider Internal Medicine; Visit Provider Internal Medicine
DX: E11.40 Type 2 diabetes mellitus with diabetic neuropathy, unspecified (principal); Z79.4 Long term (current) use of insulin; G93.41 Metabolic encephalopathy
CPT/HCPCS: 80048; 80177

== ENCOUNTER 2019-12-18 11:07 | Outpatient (RCR) | payer MEDICARE, MEDICAID, SELFPAY | END 2019-12-18 18:00 | disposition home or self-care (01) | LOC: HHLAB 11:07 | PROVIDERS: PCP Internal Medicine; Referring Provider Internal Medicine; Visit Provider Internal Medicine | DX: E11.40 Type 2 diabetes mellitus with diabetic neuropathy, unspecified (principal); Z79.4 Long term (current) use of insulin; G93.41 Metabolic encephalopathy; Z79.899 Other long term (current) drug therapy | CPT/HCPCS: 87077; 87086; 87088; 87186 ==

== ENCOUNTER 2020-10-28 12:46 | Day surgery (SDC) | payer MEDICARE, MEDICAID, SELFPAY ==
[2020-10-28] VITALS (7 sets, daily range): BP systolic 135–154; BP diastolic 59–84; PULSE 72–78; RESP 16; TEMP 36.1–36.6; O2SAT 93–98; BMI 32.8
--- NOTE | 2020-10-28 | IMM_PTH ---
PATIENT: PETE SCHUMACHER LOC: [facility] U#:[id number] AGE/SX: 75/F ROOM: RE10/28/[address]: Dr. Tanner Lopez MD : 1945 BED: DIS: 10/28/2020 SPEC #: [id number] RECD: 10/30/20 11:52 STATUS: DOMI REQ #: [id number] TIA: 10/28/20 00:[address]: Tanner Lopez DEPT: IMMUNOHISTOCHEMISTRY RECD BY: Francisca Smith ENTERED: 10/30/20 11:54 SP TYPE: IMMUNO OTHR DR: Dr. Jh Hewitt MD Tissues: Intervertebral disc, NOS Procedures: BCL-2 (add) BCL-6 (add) CD10 (add) CD15 (add) CD20 (add) CD23 (add) CD3 (add) CD30 (add) CD43 (add) CD45 (add) CD5 (add) CD79A (add) CYCLIN (add) MUM1 (add) Pankeratin (initial) PHYSICIAN & [address] [address] SPECIMEN INFORMATION: Tissue Source: L1 bone, biopsy Clinical Info: Compression fracture L1, osteoporosis Specimen Number: [id number] CPT code: 74484, 99332 x14 METHODOLOGY: Deparaffinized sections of prefer/formalin-fixed tissue or PAP/DQ stained slides are incubated with monoclonal/polyclonal antibodies/oligonucleotide probes. Localization is made via biotin free immunoperoxidase method. Appropriate controls are performed and reacted as expected. Results on target cell population are indicated in the following table: RESULTS: ANTIBODY / CLONE RESULT AE1-3 (AE1/AE3/PCK26) negative CD3 (PS1) negative CD5 (SP10) negative CD10 (56C6) negative CD15 (MMA) negative CD20 (L26) positive CD23 (1B12) negative CD30 (Perico-H2) negative CD43 (L60) negative CD45 (RP2/18) positive CD79a (11E3) positive BCL-2 (bcl-2/100/D5) positive BCL-6 (ZB172V/A8) negative Cyclin D1/BCL-1 (SP4) negative MUM1 (MRQ-43) negative These tests were developed and their performance characteristics determined by [facility]. They may not have been cleared or approved by the U.S. Food and Drug Administration. The FDA has determined that such clearance or approval is not necessary. The above immunohistochemical/dualISH markers are ordered and reviewed by the Pathologist. INTERPRETATION: L1 bone, biopsy: Atypical paratrabecular lymphoid aggregate present. AM:jason 11/01/2020 Case has been reviewed in consultation with Dr. Noyola who concurs with the above diagnosis. IDC:SJ
[2020-10-28] MEDS: Lactated Ringers 1,000 ML 100 ML IV (13:32)
[2020-10-28 13:40] LABS: Bedside Glucose 157 mg/dL (70-110)
--- NOTE | 2020-10-28 14:30 | RAD_ITS ---
CLINICAL HISTORY: Female, 75 years old. Lumbar compression fracture. PROCEDURE: KYPHOPLASTY - L1 FLUOROSCOPY TIME (if supplied): (66.4 seconds) minutes/seconds. 22 images were obtained. TECHNIQUE: (All elements of maximal sterile barrier technique followed, including US elements as applicable) RAD/Spine 1 View Any Level IMPRESSION: Intraoperative imaging provided for kyphoplasty of the L1 vertebrae. Electronically Signed: Joaquín Kirby MD at 15:39 EDT , Service support ,
[2020-10-28] MEDS: Cefazolin 2 GM in 0.9% Normal Saline 100 ML IV (14:33)
[2020-10-28] MEDS: Bupivacaine Mpf 0.5% 30 ML VIAL (14:36)
[2020-10-28] MEDS: Lidocaine 1% (30 ml sdv) 30 ML Vial (14:36)
--- NOTE | 2020-10-28 14:40 | BON_PTH ---
PATIENT: PETE SCHUMACHER LOC: [facility] [place] U#:[id number] AGE/SX: 75/F ROOM: RE10/28/[address]: Dr. Tanner Lopez MD : 1945 BED: DIS: 10/28/2020 SPEC #: [id number] RECD: 10/29/20 07:36 STATUS: DOMI ESTRADA #: [id number] TIA: 10/28/20 14:[address]: Tanner Lopez DEPT: SURGICAL PATHOLOGY RECD BY: Dwight Vasques ENTERED: 10/29/20 10:34 SP TYPE: Bone OTHR DR: Dr. Jh Hewitt MD Tissues: Vertebra, NOS Procedures: Decalcification bone/plaque Surgery Specimen Level V HEADER OPERATION: Balloon kyphoplasty L1 PRE-OP DIAGNOSIS: Compression fracture L1, osteoporosis, chronic pain TISSUE SUBMITTED: Bone biopsy L1 MICROSCOPIC DIAGNOSIS L1 bone, biopsy: Atypical para-trabecular lymphoid aggregate. See comment. AM:jason 10/30/2020 COMMENT Immunohistochemistry ([id number]) supports the above diagnosis and reveals the aggregate to be primarily B-cell in origin. Clinical correlation is necessary. Case has been reviewed in consultation with Dr. Noyola who concurs with the above diagnosis. IDC:MARIA DEL CARMEN MICROSCOPIC DESCRIPTION Slides are reviewed. GROSS DESCRIPTION Received in fixative is one container labeled with the patient's name and designated bone biopsy L1. The specimen consists of multiple fragments of blood clot mixed with fragments of bone that in aggregate measure 2.5 x 1.5 x 1 cm. The entire specimen is submitted in one cassette after decalcification. / MARIA DEL CARMEN:jason 10/29/20 TC:? CPT: 35687, 69268
[2020-10-28] MEDS: Bacitracin 500 UNITS/GM PACKET (14:58)
--- NOTE | 2020-10-28 15:41 | PCM.OPRPT ---
Report of Operation Date of Procedure: 10/28/20 Description of Surgical Findings:: PROCEDURES: 1. [place] balloon kyphoplasty at L1 Level 2. Insertion of [place] HV-R bone cement under low pressure at L1 Level 3. Bone biopsy L1 4. Fluoroscopic guidance and interpretation of images PREOPERATIVE DIAGNOSES: Osteoporosis, compression fracture of L1, chronic pain POSTOPERATIVE DIAGNOSES: Osteoporosis, compression fracture of L1, chronic pain ANESTHESIA: MAC COMPLICATIONS: None BLOOD LOSS: Minimal PROCEDURE IN DETAIL: History and physical today was reviewed. Risks and benefits of procedure explained. The patient understood, agreed to procedure, informed consent was obtained. IV inserted per routine protocol. The patient was taken to the operating room, placed in the prone position with a pillow positioned underneath the chest. A 2 g of Ancef IV piggyback was infused per anesthesia. The upper and middle back area was prepped and draped in a sterile fashion using iodine x3. Under direct visualization with fluoroscopy with the C-arm, which brought into position on AP as well as lateral view at the L1 level., the L1 pedicle was then identified. In the view of the collapsed L1, a transpedicular approach to the vertebral body was appropriate. Starting on the left side at [id number], an 11-gauge needle was advanced through the L1 pedicle through the junction of the pedicle and the vertebral body on the left side. Position was then confirmed on AP as well as lateral view. Following satisfactory placement of the needle to make sure it is further off the midline and interlaminar space, advancement was then made through AP as well as lateral view once the needle was positioned at approximately 3 mm of the posterior body of L1 the needle was then advanced more medial once safety was confirmed by avoiding the interlaminar and neuroforamen the needle was then advanced under direct visualization fluoroscopy on AP as well as lateral view the stylette of the needle was then removed a drill was then advanced into the vertebral body under fluoroscopic guidance towards the anterior cortex creating a channel. The anterior cortex were then probed with guide pen to ensure no perforation in the anterior cortex. After completion of the entry into the vertebral body, a 30 mL inflatable bone tamp was then inserted through the cannula and advanced under direct fluoroscopic guidance into the vertebral body near the anterior cortex., The biopsy was then taken at the L1 level. After completion of the entry into the vertebral body, a balloon tamp utilizing radiopaque marker bands on the bone tamp were identified using AP and lateral images, they were inflated to approximately 2 mL and making sure that the pressure is not passing 250 psi. Expansion of the bone tamp was then done sequentially in an increments of 0.25 to 0.5 mL of contrast with a careful attention was being paid to the inflation pressure and the balloon position. The inflation was then monitored on AP and lateral view images. The final balloon volume was 2.2 mL at L1. There was no breach of the lateral wall or the anterior cortex of the vertebral body. Direct reduction of the fracture was then achieved. . Under fluoroscopic imaging and a bone void filler, internal fixation was achieved through a low pressure injection of a [place] HV-R bone cement. The cavity was then filled with a total volume of 4.6 mL on the left side at L1. Once the bone cement had hardened, the cannula was then removed. Once the cannula was removed and satisfactory hemostasis was maintained, the incision as then closed with a 4-0 Vicryl at the skin. The patient was kept in the prone position for approximately 10 minutes post-cement injection, the patient was then turned into supine position, monitored briefly and returned to PACU. The patient was moving both of her lower extremities at the same time without any apparent neurological deficits. Throughout the procedure, there were no intraoperative complications, Motor as well as sensory exam was unchanged from prior to procedure. ESTIMATED BLOOD LOSS: Minimal less than 10 mL ASSESSMENT AND PLAN: This is a 75-year-old Female with chronic pain status post compression fracture of L1, osteoporosis status post Wellington balloon kyphoplasty at L1 under low pressure and insertion of an HV?R bone cement under low pressure biopsy of L1 under fluoroscopic guidance. The patient will continue her current medication. The patient will follow-up in approximately 1 week for re-evaluation.
== END 2020-10-28 16:17 | disposition home or self-care (01) ==
LOC: SDC 12:53 → AC 12:53
PROVIDERS: PCP Internal Medicine; Referring Provider Anesthesiology Pain Medicine; Visit Provider Anesthesiology Pain Medicine
PROC: (CPT 22514; principal; 2020-10-28 14:25)
DX: M48.56XA Collapsed vertebra, not elsewhere classified, lumbar region, initial encounter for fracture (principal); M81.0 Age-related osteoporosis without current pathological fracture; M51.17 Intervertebral disc disorders with radiculopathy, lumbosacral region; M47.27 Other spondylosis with radiculopathy, lumbosacral region; E11.51 Type 2 diabetes mellitus with diabetic peripheral angiopathy without gangrene; E11.40 Type 2 diabetes mellitus with diabetic neuropathy, unspecified; M46.96 Unspecified inflammatory spondylopathy, lumbar region; M79.10 Myalgia, unspecified site; G89.29 Other chronic pain; J44.9 Chronic obstructive pulmonary disease, unspecified; E78.5 Hyperlipidemia, unspecified; F32.9 Major depressive disorder, single episode, unspecified; Z79.4 Long term (current) use of insulin; Z79.891 Long term (current) use of opiate analgesic; Z79.890 Hormone replacement therapy; Z79.899 Other long term (current) drug therapy; Z86.73 Personal history of transient ischemic attack (TIA), and cerebral infarction without residual deficits
CPT/HCPCS: 22514; 72020; 76000; 82962; 88305; 88307; 88311; 88341; 88342; J7120

== ENCOUNTER 2022-07-01 17:50 | Emergency (ER) | payer MEDICARE, MEDICAID, SELFPAY ==
[2022-07-01 17:51] VITALS: PULSE 89; RESP 16; TEMP 36.9; O2SAT 93; BMI 19.8
--- NOTE | 2022-07-01 18:09 | EX.ED.DYSGE1 ---
HPI History of Present Illness Chief Complaint: Flank Pain Informant: patient Onset/Context/Timing Onset: Yesterday Context: Gradual Onset Narrative Narrative: Patient presents secondary to right flank pain. She states that she started treatment for UTI last week. Yesterday she developed right flank pain. She was given Tylenol earlier today without improvement. On review of her records from [facility] it appears she was started on Keflex 500 3 times daily on the . I do not have any prior lab work or urinalysis results to review. [facility] Medical History Anxiety Arthritis Back pain Bladder disease Cardiology follow-up encounter COPD (chronic obstructive pulmonary disease) Dementia Depression Dietary restriction DVT (deep venous thrombosis) Gastric reflux High cholesterol History of echocardiogram History of edema History of hypotension History of pain when walking History of steroid therapy History of stress test Hx of diabetic neuropathy Injury of back Insulin dependent diabetes mellitus Leg cramps Loss of consciousness Low iron Restless legs Seizures Shortness of breath on exertion Smoker Stroke/cerebrovascular accident Syncope Uses wheelchair Wears dentures Wears glasses Home Medications aspirin 81 mg chewable tablet 81 mg PO DAILY@0800 heart health 03/09/13 [History Last Taken 11/16/18] gabapentin 100 mg capsule 100 mg PO TID neuropathy 03/09/13 [History Last Taken 11/16/18] metformin 1,000 mg tablet (Glucophage) 1,000 mg PO BID diabetes 03/09/13 [History Last Taken 11/16/18] clonazepam 0.5 mg tablet 0.5 mg PO BID 10/19/13 [History Last Taken 11/16/18] omeprazole 20 mg capsule,delayed release 40 mg PO DAILY gerd 10/19/13 [History Last Taken 11/16/18] venlafaxine 75 mg tablet 75 mg PO BID depression 10/19/13 [History Last Taken 11/16/18] albuterol sulfate 90 mcg/actuation aerosol inhaler (Ventolin HFA) 1 puff inhalation Q4H PRN PRN Wheezing 01/03/14 [History Last Taken 05/14/14] olanzapine 5 mg tablet (Zyprexa) 10 mg PO QHS depression 01/03/14 [History Last Taken 11/15/18] cholecalciferol (vitamin D3) 25 mcg (1,000 unit) tablet (Vitamin D3) 25 mcg PO DAILY supplement 01/06/17 [History Last Taken 11/16/18] rosuvastatin 20 mg tablet (Crestor) 20 mg PO QHS cholesterol 01/06/17 [History Last Taken 11/15/18] calcium carbonate 500 mg calcium (1,250 mg) tablet 500 mg PO PRN PRN Indigestion 11/16/18 [History Last Taken 11/16/18] hydrocortisone 2.5 % topical cream 1 applic topical BID PRN Dry Skin 11/16/18 [History Last Taken 11/16/18] memantine 5 mg tablet 10 mg PO BID 11/16/18 [History Last Taken 11/16/18] acetaminophen 500 mg tablet 1,000 mg PO Q8H PRN PRN Pain #20 tabs 11/18/18 [Rx Last Taken Unknown] fluticasone furoate 100 mcg-vilanterol 25 mcg/dose inhalation powder (Breo Ellipta) 1 inh inhalation DAILY 10/22/20 [History Last Taken Unknown] insulin glargine 100 unit/mL (3 mL) subcutaneous pen (Lantus Solostar U-100 Insulin) 6 unit subcut DAILY 10/22/20 [History Last Taken Unknown] insulin glargine 100 unit/mL (3 mL) subcutaneous pen (Lantus Solostar U-100 Insulin) 16 unit subcut QPM 10/22/20 [History Last Taken Unknown] insulin lispro 200 unit/mL (3 mL) subcutaneous pen (Humalog KwikPen U-200 Insulin) 0 unit subcut TID sliding scale 10/22/20 [History Last Taken Unknown] levetiracetam 500 mg tablet 500 mg PO BID 10/22/20 [History Last Taken Unknown] magnesium oxide 400 mg PO DAILY 10/22/20 [History Last Taken Unknown] methylprednisolone 4 mg tablet 4 mg PO DAILY 10/22/20 [History Last Taken Unknown] Allergy/AdvReac Type Severity Reaction Status Date / Time atorvastatin calcium Allergy Unknown Verified 10/22/20 10:33 [From Lipitor] calcium Allergy Unknown Verified 10/22/20 10:33 ibuprofen [From Motrin] Allergy Unknown Verified 10/22/20 10:33 Surgical History History of angioplasty of peripheral vessel History of esophagogastroduodenoscopy (EGD) Hx laparoscopic cholecystectomy Hx of breast biopsy Hx of cataract extraction Hx of colonoscopy Social History Smoking Status: Current every day smoker tobacco type: cigarettes ROS ROS ED Constitutional Constitutional ED: Denies chills or fever(s) Eyes Eyes: Denies discharge from eye(s) ENT ENT ED: Denies discharge from eye(s), rhinorrhea or sore throat Cardiovascular Cardiovascular: Denies chest pain or palpitations Respiratory/Chest Respiratory/Chest: Denies cough or dyspnea Gastrointestinal Gastrointestinal: Reports abdominal pain; Denies diarrhea, nausea or vomiting Genitourinary Genitourinary ED: Reports dysuria Musculoskeletal Musculoskeletal: Reports back pain; Denies extremity pain Integumentary Denies Abrasions or rash Neurologic Neurologic: Denies headache(s) or weakness Endocrine Endocrinology: Denies polydipsia or polyuria Allergic/Immunologic Allergic/Immunologic ED: Denies lip swelling or urticaria EXAM Physical Exam Const Vital Signs: 07/01/22 17:51 07/01/22 18:23 07/01/22 18:42 Temperature 98.4 F 98.4 F Temperature Source Temporal Oral Pulse Rate 89 99 Respiratory Rate 16 20 H Respiratory Effort Normal Respiratory Pattern Normal Blood Pressure 125/65 H Blood Pressure Mean 85 Pulse Ox 93 92 Oxygen Delivery Method Room Air Room Air 07/01/22 19:51 Temperature Temperature Source Pulse Rate Respiratory Rate Respiratory Effort Respiratory Pattern Blood Pressure 112/65 Blood Pressure Mean 80 Pulse Ox Oxygen Delivery Method Positive well nourished and well developed General Appearance ED: well developed HEENT Reports moist mucous membranes Eyes EOMs intact bilaterally Chest Wall inspection of chest normal and palpation of chest normal Resp normal respiratory effort and clear to auscultation bilaterally Cardio regular rate and regular rhythm GI GI Narrative: Abdomen soft and nontender. Back/Spine General Back: CVA tenderness right Extremity normal to inspection Neuro Neuro Narrative: Patient alert with no focal neurodeficits. Skin no rashes or lesions noted MDM MDM MDM Narrative Medical decision making narrative: Labwork obtained to evaluate for leukocytosis, anemia, and electrolyte derangement. Urinalysis obtained to evaluate for infection/hematuria. Patient given IV fluids along with a small dose of fentanyl and Zofran. Lab Data Attestation: I reviewed the patient's lab results. Labs: Laboratory Results - last 24 hr 07/01/22 07/01/22 07/01/22 17:55 17:55 18:30 WBC 11.2 H RBC 4.00 L Hgb 9.8 L Hct 33.4 L MCV 83.5 MCH 24.5 L MCHC 29.3 L RDW Std Deviation 48.7 H RDW Coeff of Fadumo 16.0 H Plt Count 270 MPV 11.4 Immature Gran % (Auto) 0.200 Neut % (Auto) 46.4 L Lymph % (Auto) 44.9 H [place] % (Auto) 6.0 Eos % (Auto) 2.1 Baso % (Auto) 0.4 Absolute Neuts (auto) 5.2 Absolute Lymphs (auto) 5.03 H Nucleated RBC % 0 Differential Comment SEE COMMENT Atypical Lymphocytes 2+ Reactive Lymphocytes 1+ Platelet Estimate ADEQUATE RBC Morphology N CHROM Anisocytosis RARE Sodium 138 Potassium 4.3 Chloride 105 Carbon Dioxide 24.0 Anion Gap 9 BUN 18 Creatinine 1.51 H Estim Creat Clear Calc 25.82 Est GFR (MDRD) Af Amer 43 L Est GFR (MDRD) Non-Af 36 L BUN/Creatinine Ratio 11.9 Glucose 153 H Lactic Acid 3.0 H* Calcium 9.2 Total Bilirubin 0.20 Direct Bilirubin < 0.05 AST 46 H ALT 53 Alkaline Phosphatase 156 H Total Protein 6.9 Albumin 3.1 L Globulin 3.8 Urine Color Urine Clarity Urine pH Ur Specific [place] Urine Protein Urine Glucose (UA) Urine Ketones Urine Occult Blood Urine Nitrite Urine Bilirubin Urine Urobilinogen Ur Leukocyte Esterase Urine RBC Urine WBC Ur Squamous Epith Cells Urine Bacteria Urine Mucus 07/01/22 07/01/22 18:45 22:30 WBC RBC Hgb Hct MCV MCH MCHC RDW Std Deviation RDW Coeff of Fadumo Plt Count MPV Immature Gran % (Auto) Neut % (Auto) Lymph % (Auto) [place] % (Auto) Eos % (Auto) Baso % (Auto) Absolute Neuts (auto) Absolute Lymphs (auto) Nucleated RBC % Differential Comment Atypical Lymphocytes Reactive Lymphocytes Platelet Estimate RBC Morphology Anisocytosis Sodium 142 Potassium 3.8 Chloride 107 Carbon Dioxide 28.0 Anion Gap 7 BUN 17 Creatinine 1.20 H Estim Creat Clear Calc 32.48 Est GFR (MDRD) Af Amer 56 L Est GFR (MDRD) Non-Af 47 L BUN/Creatinine Ratio 14.2 Glucose 126 H Lactic Acid Calcium 9.1 Total Bilirubin Direct Bilirubin AST ALT Alkaline Phosphatase Total Protein Albumin Globulin Urine Color Yellow Urine Clarity Clear Urine pH 5.0 Ur Specific [place] 1.015 Urine Protein 15 H Urine Glucose (UA) Normal Urine Ketones Negative Urine Occult Blood 25 H Urine Nitrite Negative Urine Bilirubin Negative Urine Urobilinogen Normal Ur Leukocyte Esterase 25 H Urine RBC 0-5 SEEN Urine WBC 0-5 SEEN Ur Squamous Epith Cells 0-5 SEEN Urine Bacteria 0 SEEN Urine Mucus 0 SEEN Radiography Diagnostic Testing: Clinical Impression(s) from Imaging Studies Abdomen/Pelvis CT 07/01/22 18:54 IMPRESSION: No acute abnormal finding the abdomen or pelvis. No inflammatory stranding about the kidneys. This does not strictly exclude pyelonephritis, particularly given lack of IV contrast. Electronically Signed: Jareth Garcia MD at 19:21 EDT , Treatment and Re-Evaluation :: CBC was white count 11.2 and hemoglobin 9.8. Normal differential noted. Chemistry studies reveal a BUN of 18 and a creatinine 1.51. Appears her normal creatinine is around 0.87. Lactic acid is 3.0. LFTs are unremarkable. Urinalysis actually looks improved with 0 bacteria and 0-5 white cells. Nitrites are negative. CT scan of the flank is obtained and reveals no acute abnormal finding. No inflammatory stranding noted around the kidney. Patient is given a liter of IV fluids. 1 hour after fluids are completed a repeat BMP is drawn and creatinine is now improved to 1.2. Her lactic acid is gone from 3-2.4. Patient clinically does not look ill. Given her seizure history and multitude of other comorbidities I will not write her anything stronger for pain at home. She will continue Tylenol. She will increase fluids. She is to continue her full course of antibiotics. Discharge Plan Triage Chief Complaint: Flank Pain ED Provider: Ana Maria Dunn Dx/Rx/DC Orders Clinical Impression: Right flank pain, Dehydration Instructions: ED Dehydration (Adult), ED Flank Pain, Uncertain Cause Prescriptions: No Action metformin [Glucophage] 1,000 MG tablet 1,000 mg PO BID Label Comments: BLOOD SUGAR-Diabetic aspirin 81 MG tablet,chewable 81 mg PO DAILY@0800 Label Comments: Blood Thinner gabapentin 100 MG capsule 100 mg PO TID Label Comments: NERVE PAIN venlafaxine 75 MG tablet 75 mg PO BID Label Comments: Antidepressant clonazepam 0.5 MG tablet 0.5 mg PO BID Label Comments: ANXIETY omeprazole 20 MG capsule 40 mg PO DAILY Label Comments: HEART BURN olanzapine [Zyprexa] 5 MG tablet 10 mg PO QHS Label Comments: Depression albuterol sulfate [Ventolin HFA] 1 INHALER inhaler 1 puff inhalation Q4H PRN PRN (Reason: Wheezing) Label Comments: Helps with breathing rosuvastatin [Crestor] 20 MG tablet 20 mg PO QHS cholecalciferol (vitamin D3) [Vitamin D3] 1,000 tablet 25 mcg PO DAILY Label Comments: calcium carbonate 500 MG tablet 500 mg PO PRN PRN (Reason: Indigestion) hydrocortisone 1 APPLIC cream 1 applic topical BID PRN (Reason: Dry Skin) memantine 5 MG tablet 10 mg PO BID acetaminophen 500 MG tablet 1,000 mg PO Q8H PRN PRN (Reason: Pain) Qty: 20 0RF levetiracetam 500 mg Tablet 500 mg PO BID methylprednisolone [Methylprednisone] 4 mg Tablet 4 mg PO DAILY Lantus Solostar U-100 Insulin 100 unit/mL (3 mL) Insulin Pen 16 unit SUBCUT QPM Lantus Solostar U-100 Insulin 100 unit/mL (3 mL) Insulin Pen 6 unit SUBCUT DAILY magnesium oxide 400 mg magnesium Capsule 400 mg PO DAILY Humalog KwikPen Insulin 200 unit/mL (3 mL) Insulin Pen 0 unit SUBCUT TID Rx Instructions: sliding scale Breo Ellipta 100-25 mcg/dose Blister With Device 1 inh INHALATION DAILY Primary Care Provider: Jh Hewitt Referrals: Jh Hewitt MD [Primary Care Provider] - Activity Restrictions/Additional Instructions: Please complete the full course of antibiotics you are prescribed. Please increase p.o. fluids to maintain hydration status. Disposition Disposition: Home, Self Care
[2022-07-01 18:25] LABS: Absolute Lymphocyte Count 5.03 X10^3/uL (0.83-4.51); Absolute Neutrophil Count 5.2 X10^3/uL (2.0-7.7); Basophil# 0.05 X10^3/uL; Basophil% 0.4 % (0-1); Eosinophil# 0.24 X10^3/uL; Eosinophils% 2.1 % (0-5); Hematocrit 33.4 % (37-47); Hemoglobin 9.8 g/dL (12.0-15.0); Lymphocyte # 5.03 X10^3/ul (0.83-4.51); Lymphocyte % 44.9 % (19-41); Mean Corp Hgb Conc 29.3 g/dL (32-36); Mean Corpuscular Hgb 24.5 pg (27.0-32.0); Mean Corpuscular Volume 83.5 fL (81-99); Mean Platelet Vol. 11.4 fl (6.2-12.0); Monocyte# 0.67 X10^3/uL; NRBC Flagged by Analyzer 0 % (0-5); Neutrophil # 5.19 X10^3/uL (2.7-7.7); Neutrophil % 46.4 % (47-70); POSITIVE DIFFERENTIAL YES; POSITIVE MORPHOLOGY YES; Platelet Count 270 K/mm3 (150-450); RBC Distribution Width SD 48.7 fl (35.1-43.9); White Blood Count 11.2 K/mm3 (4.4-11.0)
[2022-07-01 18:27] LABS: Differential Indicated SCAN CRITERIA MET
[2022-07-01] MEDS: fentaNYL 100 MCG/2 ML Ampul 25 MCG IV (18:32)
[2022-07-01] MEDS: 0.9% Normal Saline 1,000 ML 150 ML IV (18:32)
[2022-07-01 18:41] LABS: AST(SGOT) 46 U/L (15-37); Alanine Aminotransfer ALT/SGPT 53 U/L (13-56); Albumin, Serum 3.1 g/dL (3.2-5.0); Alkaline Phosphatase 156 U/L (45-117); Anion Gap 9 (5-15); BUN 18 mg/dL (7-18); BUN/Creat Ratio 11.9 RATIO (10-20); Bilirubin, Direct < 0.05 mg/dL (0.00-0.30); Calcium,Total 9.2 mg/dL (8.5-10.1); Chloride 105 mmol/L (98-107); Creatinine, Serum 1.51 mg/dL (0.55-1.02); EST Glomerular Filtration Rate 36 mL/min (>60); Est Glom Filt Rate - Afr Amer 43 mL/min (>60); Estimated Creatinine Clearance 25.82 ml/min; Globulin 3.8 g/dL (2.2-4.2); Glucose 153 mg/dL (74-106); Potassium 4.3 mmol/L (3.5-5.1); Protein, Total 6.9 g/dL (6.4-8.2); Sodium Level 138 mmol/L (136-145)
[2022-07-01 18:42] VITALS: BP 125/65; PULSE 99; RESP 20; TEMP 36.9; O2SAT 92
--- NOTE | 2022-07-01 18:54 | CT_ITS ---
INDICATION: Pyelonephritis EXAMINATION: CT ABDOMEN AND PELVIS WITHOUT CONTRAST - CT Abdomen And Pelvis W/O Contrast Injection TECHNIQUE: Helically acquired images were obtained of the abdomen and pelvis without oral or IV contrast. A radiation dose optimization technique was used for this scan. IV Contrast dosage and agent: None. Oral contrast: None. RADIATION DOSAGE (If Supplied By Facility): CTDIvol = ( 15.80 ) mGy, DLP = ( 852.68 ) mGycm COMPARISON: 05/04/2014 FINDINGS: LOWER CHEST: Chronic lung disease progressed compared to 05/04/2014. No cardiomegaly or pericardial effusion. LIVER: Homogeneous. No focal mass. GALLBLADDER AND BILIARY TREE: No calcified gallstones. No gallbladder distension or wall edema. No intra- or extrahepatic biliary ductal dilation. PANCREAS: No focal cystic or solid mass. SPLEEN: Normal size without focal cystic or solid mass. ADRENAL GLANDS: No nodules. KIDNEYS AND URETERS: Normal renal size and position. No hydronephrosis. PERITONEUM: No ascites or free air. No other fluid collection. BOWEL: No evidence of acute appendicitis. No stomach or bowel distension. No focal inflammatory change. LYMPH NODES: No enlarged mesenteric or retroperitoneal lymph nodes. VESSELS: Aorta is non-dilated. URINARY BLADDER: Unremarkable. REPRODUCTIVE ORGANS: No pelvic masses. ABDOMINAL WALL: No discrete abdominal or pelvic wall hernia. BONES: Extensive thoracolumbar degenerative change. CT/Abdomen/Pelvis without Cont IMPRESSION: No acute abnormal finding the abdomen or pelvis. No inflammatory stranding about the kidneys. This does not strictly exclude pyelonephritis, particularly given lack of IV contrast. Electronically Signed: Jareth Garcia MD at 19:21 EDT ,
[2022-07-01 18:58] LABS: Bacteria 0 SEEN /hpf (None Seen); Mucous, Urine 0 SEEN /hpf (<or=2+)
[2022-07-01 19:02] LABS: Color, Urine Yellow (Yellow); Glucose, Dipstick Normal (Normal); Ketone-Dipstick Negative (Negative); Leukocyte Esterase-Dipstick 25 /ul (Negative); Nitrite-Dipstick Negative (Negative); Occult Blood-Urine 25 /ul (Negative); Protein-Dipstick 15 mg/dl (Negative); Specific Gravity, Urine 1.015 (1.002-1.030); Urine Bilirubin Dipstick Negative (Negative); Urine Clarity Clear (Clear); Urine Urobilinogen Normal (Normal)
[2022-07-01 19:19] LABS: Red Blood Cells-Urine 0-5 SEEN /hpf (0-5); Squamous Epithelial Cells - UA 0-5 SEEN /hpf (5-10); White Blood Cells 0-5 SEEN /hpf (0-5)
[2022-07-01 19:28] LABS: Anisocytosis RARE; Atypical Lymphocyte 2+ %; Platelet Estimate ADEQUATE (ADEQ); Reactive Lymphocyte 1+; Red Cell Morphology N CHROM NORMAL (NORM C&C)
[2022-07-01] MEDS: 0.9% Normal Saline 1,000 ML 999 ML IV (19:48)
[2022-07-01 19:51] VITALS: BP 112/65
[2022-07-01 21:00] VITALS: PULSE 98; O2SAT 92
[2022-07-01 22:54] LABS: Reflex Lactate? Y
[2022-07-01 22:57] LABS: Anion Gap 7 (5-15); BUN 17 mg/dL (7-18); BUN/Creat Ratio 14.2 RATIO (10-20); Calcium,Total 9.1 mg/dL (8.5-10.1); Chloride 107 mmol/L (98-107); EST Glomerular Filtration Rate 47 mL/min (>60); Est Glom Filt Rate - Afr Amer 56 mL/min (>60); Estimated Creatinine Clearance 32.48 ml/min; Glucose 126 mg/dL (74-106); Potassium 3.8 mmol/L (3.5-5.1); Sodium Level 142 mmol/L (136-145)
[2022-07-01 23:00] VITALS: PULSE 82; O2SAT 92
[2022-07-01 23:12] LABS: Lactic Acid 2.4 mmol/L (0.4-1.9)
[2022-07-01 23:18] LABS: Reflex Lactate? N
== END 2022-07-01 23:32 | disposition home or self-care (01) ==
PROVIDERS: Emergency Provider Emergency Medicine; PCP Internal Medicine; Visit Provider Emergency Medicine
DX: R10.9 Unspecified abdominal pain (principal); J44.9 Chronic obstructive pulmonary disease, unspecified; E11.40 Type 2 diabetes mellitus with diabetic neuropathy, unspecified; Z79.4 Long term (current) use of insulin; E86.0 Dehydration; E78.00 Pure hypercholesterolemia, unspecified; K21.9 Gastro-esophageal reflux disease without esophagitis; F17.210 Nicotine dependence, cigarettes, uncomplicated; Z79.82 Long term (current) use of aspirin; Z79.84 Long term (current) use of oral hypoglycemic drugs; Z79.899 Other long term (current) drug therapy
CPT/HCPCS: 74176; 80048; 80076; 81001; 83605; 85025; 87040; 87086; 96361; 96374; 99285

== ENCOUNTER 2022-09-11 20:17 | Emergency (ER) | payer MEDICARE, MEDICAID, SELFPAY ==
[2022-09-11 20:18] VITALS: BP 136/57; PULSE 94; RESP 14; TEMP 36.8; O2SAT 90; BMI 35.6
--- NOTE | 2022-09-11 20:34 | EX.ED.DYSGE1 ---
HPI History of Present Illness Chief Complaint: Abd Pain Informant: patient, EMS and SNF Narrative Narrative: 77-year-old female presenting to the emergency department chief complaint of diarrhea and abdominal pain. Patient states that approximately 3 weeks ago she finished an antibiotic for urinary tract infection. She states she really did not have too much symptomology with that. 1 week ago she began to have diarrhea and states that all week long she has been taking antidiarrheal medication. Today she notes that she has had an increase in the amount of diarrhea. She describes it as watery and brown with a foul smell. She states she was unable to control her bowels today. She is also developed a right sided abdominal pain which she describes as sharp and constant. She denies any fever nausea or vomiting. She has been afraid to eat much out of concerns of making the diarrhea worse. She denies history of colitis inflammatory bowel disease colitis or IBS. She has had prior cholecystectomy. She does not believe anybody has checked her stool this week. [facility] Medical History Anxiety Arthritis Back pain Bladder disease Cardiology follow-up encounter COPD (chronic obstructive pulmonary disease) Dementia Depression Dietary restriction DVT (deep venous thrombosis) Gastric reflux High cholesterol History of echocardiogram History of edema History of hypotension History of pain when walking History of steroid therapy History of stress test Hx of diabetic neuropathy Injury of back Insulin dependent diabetes mellitus Leg cramps Loss of consciousness Low iron Restless legs Seizures Shortness of breath on exertion Smoker Stroke/cerebrovascular accident Syncope Uses wheelchair Wears dentures Wears glasses Home Medications aspirin 81 mg chewable tablet 81 mg PO DAILY@0800 heart health 03/09/13 [History Last Taken 11/16/18] gabapentin 100 mg capsule 100 mg PO TID neuropathy 03/09/13 [History Last Taken 11/16/18] metformin 1,000 mg tablet (Glucophage) 1,000 mg PO BID diabetes 03/09/13 [History Last Taken 11/16/18] clonazepam 0.5 mg tablet 0.5 mg PO BID 10/19/13 [History Last Taken 11/16/18] omeprazole 20 mg capsule,delayed release 40 mg PO DAILY gerd 10/19/13 [History Last Taken 11/16/18] venlafaxine 75 mg tablet 75 mg PO BID depression 10/19/13 [History Last Taken 11/16/18] albuterol sulfate 90 mcg/actuation aerosol inhaler (Ventolin HFA) 1 puff inhalation Q4H PRN PRN Wheezing 01/03/14 [History Last Taken 05/14/14] olanzapine 5 mg tablet (Zyprexa) 10 mg PO QHS depression 01/03/14 [History Last Taken 11/15/18] cholecalciferol (vitamin D3) 25 mcg (1,000 unit) tablet (Vitamin D3) 25 mcg PO DAILY supplement 01/06/17 [History Last Taken 11/16/18] rosuvastatin 20 mg tablet (Crestor) 20 mg PO QHS cholesterol 01/06/17 [History Last Taken 11/15/18] calcium carbonate 500 mg calcium (1,250 mg) tablet 500 mg PO PRN PRN Indigestion 11/16/18 [History Last Taken 11/16/18] hydrocortisone 2.5 % topical cream 1 applic topical BID PRN Dry Skin 11/16/18 [History Last Taken 11/16/18] memantine 5 mg tablet 10 mg PO BID 11/16/18 [History Last Taken 11/16/18] acetaminophen 500 mg tablet 1,000 mg (2 x 500 mg) PO Q8H PRN PRN Pain #20 tabs 11/18/18 [Rx Last Taken Unknown] fluticasone furoate 100 mcg-vilanterol 25 mcg/dose inhalation powder (Breo Ellipta) 1 inh inhalation DAILY 10/22/20 [History Last Taken Unknown] insulin glargine 100 unit/mL (3 mL) subcutaneous pen (Lantus Solostar U-100 Insulin) 6 unit subcut DAILY 10/22/20 [History Last Taken Unknown] insulin glargine 100 unit/mL (3 mL) subcutaneous pen (Lantus Solostar U-100 Insulin) 16 unit subcut QPM 10/22/20 [History Last Taken Unknown] insulin lispro 200 unit/mL (3 mL) subcutaneous pen (Humalog KwikPen U-200 Insulin) 0 unit subcut TID sliding scale 10/22/20 [History Last Taken Unknown] levetiracetam 500 mg tablet 500 mg PO BID 10/22/20 [History Last Taken Unknown] magnesium oxide 400 mg PO DAILY 10/22/20 [History Last Taken Unknown] methylprednisolone 4 mg tablet 4 mg PO DAILY 10/22/20 [History Last Taken Unknown] dicyclomine 10 mg capsule 20 mg (2 x 10 mg) PO TIDAC PRN Abdominal Pain #20 CAPSULES 09/11/22 [Rx Last Taken Unknown] Allergy/AdvReac Type Severity Reaction Status Date / Time atorvastatin calcium Allergy Unknown Verified 09/11/22 20:19 [From Lipitor] calcium Allergy Unknown Verified 09/11/22 20:19 ibuprofen [From Motrin] Allergy Unknown Verified 09/11/22 20:19 Surgical History History of angioplasty of peripheral vessel History of esophagogastroduodenoscopy (EGD) Hx laparoscopic cholecystectomy Hx of breast biopsy Hx of cataract extraction Hx of colonoscopy Social History (Updated 09/11/22 @ 20:[address] Efra Borjas DO) Smoking Status: Smoker, status unknown substance use type: does not use ROS ROS ED Constitutional Constitutional ED: Denies chills, fever(s) or weight loss Eyes Eyes: Denies change in vision or diplopia ENT ENT ED: Denies ear pain, rhinorrhea or sore throat Cardiovascular Cardiovascular: Denies chest pain, orthopnea, palpitations or racing heartbeat Respiratory/Chest Respiratory/Chest: Denies cough, dyspnea or orthopnea Gastrointestinal Gastrointestinal: Reports abdominal pain and diarrhea; Denies nausea or vomiting Genitourinary Genitourinary ED: Denies dysuria, hematuria or urinary frequency Musculoskeletal Musculoskeletal: Denies arthralgias or myalgias Integumentary Denies abscess or rash Neurologic Neurologic: Denies headache(s) or weakness Psychiatric Psychiatric: Denies anxiety, depression, suicidal ideation or suicidal thoughts Endocrine Endocrinology: Denies polydipsia, polyphagia or polyuria Allergic/Immunologic Allergic/Immunologic ED: Denies mouth swelling, tongue swelling or urticaria EXAM Physical Exam Const Vital Signs: 09/11/22 20:18 09/11/22 22:25 Temperature 98.3 F Temperature Source Temporal Pulse Rate 94 Respiratory Rate 14 16 Blood Pressure 136/57 H Blood Pressure Mean 83 Pulse Ox 90 Oxygen Delivery Method Room Air Positive well nourished and well developed General Appearance ED: well developed HEENT Reports normocephalic, head/scalp atraumatic and moist mucous membranes Eyes PERRL and EOMs intact bilaterally Neck no lymphadenopathy, supple and no JVD Resp normal respiratory effort and clear to auscultation bilaterally Cardio regular rate, regular rhythm and no murmurs GI non-distended and no masses Auscultation: normoactive bowel sounds Palpation: soft and tender RLQ and RUQ; Negative for guarding or rebound tenderness present Back/Spine no CVA tenderness and normal ROM Extremity normal to inspection General Extremety ED: Negative for edema General Extremity: Negative for edema Neuro oriented x3 Neuro Narrative: Chronic changes associated with prior stroke Sensorium / Orientation: alert Motor Exam: strength 5/5 throughout Psych mental status grossly normal Mood & Affect: Negative for depressed or tearful Skin no rashes or lesions noted and no wounds MDM MDM MDM Narrative Medical decision making narrative: White count 13.3. Normal electrolytes and BUN and creatinine. Patient received 500 cc of normal saline. CT the abdomen pelvis with IV contrast does not demonstrate any significant colitis or appendicitis. Stool was positive for fecal leukocytes. I will not be getting the C. difficile or enteric pathogen's back for some time. I do not think that these will require admission if positive. Given her normal vital signs and labs think she can be treated as an outpatient. I will write for some Bentyl for pain. Patient and family were notified of the results and plan and are comfortable with the Lab Data Attestation: I reviewed the patient's lab results. Labs: Laboratory Results - last 24 hr 09/11/22 20:27 WBC 13.3 H RBC 4.00 L Hgb 9.8 L Hct 33.2 L MCV 83.0 MCH 24.5 L MCHC 29.5 L RDW Std Deviation 47.8 H RDW Coeff of Fadumo 15.7 H Plt Count 275 MPV 11.1 Immature Gran % (Auto) 0.300 Neut % (Auto) 55.6 Lymph % (Auto) 37.0 Sargent % (Auto) 5.0 Eos % (Auto) 1.8 Baso % (Auto) 0.3 Absolute Neuts (auto) 7.4 Absolute Lymphs (auto) 4.91 H Nucleated RBC % 0 Differential Comment SCANNED Sodium 140 Potassium 4.1 Chloride 107 Carbon Dioxide 26.0 Anion Gap 7 BUN 25 H Creatinine 1.08 H Estim Creat Clear Calc 37.23 Est GFR (MDRD) Af Amer 64 Est GFR (MDRD) Non-Af 53 L BUN/Creatinine Ratio 23.1 H Glucose 141 H Calcium 9.0 Total Bilirubin 0.20 Direct Bilirubin 0.08 AST 51 H ALT 48 Alkaline Phosphatase 169 H Total Protein 7.1 Albumin 3.2 Globulin 3.9 Lipase 223 H Radiography Diagnostic Testing: Clinical Impression(s) from Imaging Studies Abdomen/Pelvis CT 09/11/22 21:10 IMPRESSION: Limited study of the bowel without contrast no evidence for small bowel obstruction or inflammatory bowel disease. No evidence for acute appendicitis Postop changes status post cholecystectomy.. Nonspecific concentric thickening of the jack of bladder. Possibility of cystitis not entirely excluded Electronically Signed: Tanner Ruiz MD at 22:11 EDT , Discharge Plan Triage Chief Complaint: Abd Pain ED Provider: Efra Borjas Dx/Rx/DC Orders Clinical Impression: Diarrhea, Abdominal pain Instructions: Abdominal Pain, ED Diarrhea, Unknown Cause Prescriptions: New dicyclomine 10 mg capsule 20 mg PO TIDAC PRN (Reason: Abdominal Pain) Qty: 20 0RF No Action metformin [Glucophage] 1,000 MG tablet 1,000 mg PO BID Patient Comments: BLOOD SUGAR-Diabetic aspirin 81 MG tablet,chewable 81 mg PO DAILY@0800 Patient Comments: Blood Thinner gabapentin 100 MG capsule 100 mg PO TID Patient Comments: NERVE PAIN venlafaxine 75 MG tablet 75 mg PO BID Patient Comments: Antidepressant clonazepam 0.5 MG tablet 0.5 mg PO BID Patient Comments: ANXIETY omeprazole 20 MG capsule 40 mg PO DAILY Patient Comments: HEART BURN olanzapine [Zyprexa] 5 MG tablet 10 mg PO QHS Patient Comments: Depression albuterol sulfate [Ventolin HFA] 1 INHALER inhaler 1 puff inhalation Q4H PRN PRN (Reason: Wheezing) Patient Comments: Helps with breathing rosuvastatin [Crestor] 20 MG tablet 20 mg PO QHS cholecalciferol (vitamin D3) [Vitamin D3] 1,000 tablet 25 mcg PO DAILY Patient Comments: calcium carbonate 500 MG tablet 500 mg PO PRN PRN (Reason: Indigestion) hydrocortisone 1 APPLIC cream 1 applic topical BID PRN (Reason: Dry Skin) memantine 5 MG tablet 10 mg PO BID acetaminophen 500 MG tablet 1,000 mg PO Q8H PRN PRN (Reason: Pain) Qty: 20 0RF levetiracetam 500 mg Tablet 500 mg PO BID methylprednisolone [Methylprednisone] 4 mg Tablet 4 mg PO DAILY Lantus Solostar U-100 Insulin 100 unit/mL (3 mL) Insulin Pen 16 unit SUBCUT QPM Lantus Solostar U-100 Insulin 100 unit/mL (3 mL) Insulin Pen 6 unit SUBCUT DAILY magnesium oxide 400 mg magnesium Capsule 400 mg PO DAILY Humalog KwikPen Insulin 200 unit/mL (3 mL) Insulin Pen 0 unit SUBCUT TID Rx Instructions: sliding scale Breo Ellipta 100-25 mcg/dose Blister With Device 1 inh INHALATION DAILY Primary Care Provider: Jh Hewitt Referrals: Jh Hewitt MD [Primary Care Provider] - 1-2 Days if not improving Activity Restrictions/Additional Instructions: The results of your C. difficile and enteric pathogens are still pending. If these are positive we will be in contact with you. Disposition Disposition: Assisted Living Discharge Location: [facility]
[2022-09-11 20:48] LABS: Absolute Lymphocyte Count 4.91 X10^3/uL (0.83-4.51); Absolute Neutrophil Count 7.4 X10^3/uL (2.0-7.7); Basophil# 0.04 X10^3/uL; Basophil% 0.3 % (0-1); Eosinophil# 0.24 X10^3/uL; Eosinophils% 1.8 % (0-5); Hematocrit 33.2 % (37-47); Hemoglobin 9.8 g/dL (12.0-15.0); Lymphocyte # 4.91 X10^3/ul (0.83-4.51); Mean Corp Hgb Conc 29.5 g/dL (32-36); Mean Corpuscular Hgb 24.5 pg (27.0-32.0); Mean Platelet Vol. 11.1 fl (6.2-12.0); Monocyte# 0.66 X10^3/uL; NRBC Flagged by Analyzer 0 % (0-5); Neutrophil # 7.39 X10^3/uL (2.7-7.7); Neutrophil % 55.6 % (47-70); POSITIVE MORPHOLOGY YES; Platelet Count 275 K/mm3 (150-450); RBC Distribution Width CV 15.7 % (11.6-14.6); RBC Distribution Width SD 47.8 fl (35.1-43.9); White Blood Count 13.3 K/mm3 (4.4-11.0)
[2022-09-11 20:50] LABS: Differential Indicated SCAN CRITERIA MET
[2022-09-11 21:07] LABS: AST(SGOT) 51 U/L (15-37); Alanine Aminotransfer ALT/SGPT 48 U/L (13-56); Albumin, Serum 3.2 g/dL (3.2-5.0); Alkaline Phosphatase 169 U/L (45-117); Anion Gap 7 (5-15); BUN 25 mg/dL (7-18); BUN/Creat Ratio 23.1 RATIO (10-20); Bilirubin, Direct 0.08 mg/dL (0.00-0.30); Chloride 107 mmol/L (98-107); Creatinine, Serum 1.08 mg/dL (0.55-1.02); EST Glomerular Filtration Rate 53 mL/min (>60); Est Glom Filt Rate - Afr Amer 64 mL/min (>60); Estimated Creatinine Clearance 37.23 ml/min; Globulin 3.9 g/dL (2.2-4.2); Glucose 141 mg/dL (74-106); Lipase 223 U/L (13-75); Potassium 4.1 mmol/L (3.5-5.1); Protein, Total 7.1 g/dL (6.4-8.2); Sodium Level 140 mmol/L (136-145)
--- NOTE | 2022-09-11 21:10 | CT_ITS ---
STUDY: CT ABDOMEN AND PELVIS WITH CONTRAST REASON FOR EXAM: Female, 77 years old. abdominal pain RADIATION DOSAGE (If Supplied By Facility): CTDIvol = ( 16.06 ) mGy, DLP = ( 2162.08 ) mGycm TECHNIQUE: Transaxial images were obtained from the dome of the diaphragm to the symphysis pubis without oral contrast. IV 100mL Isovue-370 was administered. Sagittal and coronal images were reconstructed. Individualized dose optimization techniques were used for this CT. COMPARISON: July 01, 2022 FINDINGS: Diffuse bibasilar interstitial thickening of uncertain etiology.. The visualized portions of the heart are within normal limits. Liver is normal in size and homogeneous without space-occupying lesion.. Mild biliary distention status post prior cholecystectomy. Normal gallbladder and extrahepatic biliary system. Normal spleen. Mildly atrophic pancreas.. Normal bilateral adrenal glands. Normal right kidney. Normal left kidney. Normal visualized stomach. Limited evaluation of the small bowel and colon without oral contrast but no evidence for small bowel obstruction or definitive evidence for acute inflammatory bowel disease. . No evidence for acute appendicitis Atherosclerotic changes of the aorta without evidence for aneurysm. Normal inferior vena cava. Normal retroperitoneum. Nonspecific concentric thickening of the bladder possibly due to cystitis.. Normal abdominal wall. Lumbar spine demonstrates scoliosis and degenerative change.. Old compression fracture of L1 status post kyphoplasty CT/Abdomen/Pelvis W IV Cont ONLY IMPRESSION: Limited study of the bowel without contrast no evidence for small bowel obstruction or inflammatory bowel disease. No evidence for acute appendicitis Postop changes status post cholecystectomy.. Nonspecific concentric thickening of the jack of bladder. Possibility of cystitis not entirely excluded Electronically Signed: Tanner Ruiz MD at 22:11 EDT ,
[2022-09-11 21:13] LABS: Differential Comment SCANNED
[2022-09-11] MEDS: Dicyclomine 10 MG Capsule 20 MG PO (22:23)
[2022-09-11 22:25] VITALS: RESP 16
[2022-09-11 22:28] VITALS: BP 141/72; PULSE 74; RESP 16; O2SAT 95
== END 2022-09-11 22:47 | disposition home or self-care (01) ==
PROVIDERS: Emergency Provider Emergency Medicine; PCP Internal Medicine; Visit Provider Emergency Medicine
DX: R19.7 Diarrhea, unspecified (principal); J44.9 Chronic obstructive pulmonary disease, unspecified; E11.40 Type 2 diabetes mellitus with diabetic neuropathy, unspecified; Z79.4 Long term (current) use of insulin; E78.00 Pure hypercholesterolemia, unspecified; Z90.49 Acquired absence of other specified parts of digestive tract; Z79.82 Long term (current) use of aspirin; Z79.84 Long term (current) use of oral hypoglycemic drugs; Z79.899 Other long term (current) drug therapy; Z86.73 Personal history of transient ischemic attack (TIA), and cerebral infarction without residual deficits
CPT/HCPCS: 74177; 80048; 80076; 83630; 83690; 85025; 87177; 87209; 87493; 87506; 99284; J7040; Q9967; A4216

== ENCOUNTER 2022-11-10 13:21 | Emergency (ER) | payer MEDICARE, MEDICAID, SELFPAY ==
[2022-11-10 13:22] VITALS: BP 133/72; PULSE 89; RESP 14; TEMP 36; O2SAT 94; BMI 34.7
[2022-11-10] MEDS: Acetaminophen 325 MG Tablet 650 MG PO (13:34)
--- NOTE | 2022-11-10 13:35 | RAD_ITS ---
STUDY: X-RAY - RIGHT KNEE REASON FOR EXAM: Female, 77 years old. Knee pain. No known injury. TECHNIQUE: 3 view(s) of the knee. COMPARISON: None. FINDINGS: Normal visualized distal femur. Normal visualized proximal tibia and fibula. Normal proximal tibiofibular articulation. Normal medial femorotibial compartment. Normal lateral femorotibial compartment. Normal patellofemoral articulation. The soft tissue structures are unremarkable. RAD/Knee 3 Views IMPRESSION: Normal x-ray examination of the knee. Electronically Signed: Joaquín Kirby MD at 13:56 EDT ,
--- NOTE | 2022-11-10 13:38 | ED.VIS.LOWEX ---
HPI <ROSA Brantley - Last Filed: 11/10/22 15:09> History of Present Illness Chief Complaint: Lower Extremity Injury Narrative Narrative: Patient presenting today with pain to her right knee that she has had for the past week. She reports that it all started when she was standing up from her dining room table and felt a sudden pain in her knee. She did not twist her knee at that time nor did she fall. She denies any injury to the knee. She does have a history of osteoarthritis to her knees bilaterally. Shorts that yesterday she was trying to walk and her right knee gave out causing her to fall to her bottom. She did not hit her head during that fall or injure herself. She has been using ice and Tylenol with minimal relief. PFSH <ROSA Brantley - Last Filed: 11/10/22 15:09> [facility] Medical History Anxiety Arthritis Back pain Bladder disease Cardiology follow-up encounter COPD (chronic obstructive pulmonary disease) Dementia Depression Dietary restriction DVT (deep venous thrombosis) Gastric reflux High cholesterol History of echocardiogram History of edema History of hypotension History of pain when walking History of steroid therapy History of stress test Hx of diabetic neuropathy Injury of back Insulin dependent diabetes mellitus Leg cramps Loss of consciousness Low iron Restless legs Seizures Shortness of breath on exertion Smoker Stroke/cerebrovascular accident Syncope Uses wheelchair Wears dentures Wears glasses Home Medications aspirin 81 mg chewable tablet 81 mg PO DAILY@0800 heart health 03/09/13 [History Last Taken 11/16/18] gabapentin 100 mg capsule 100 mg PO TID neuropathy 03/09/13 [History Last Taken 11/16/18] metformin 1,000 mg tablet (Glucophage) 1,000 mg PO BID diabetes 03/09/13 [History Last Taken 11/16/18] clonazepam 0.5 mg tablet 0.5 mg PO BID 10/19/13 [History Last Taken 11/16/18] omeprazole 20 mg capsule,delayed release 40 mg PO DAILY gerd 10/19/13 [History Last Taken 11/16/18] venlafaxine 75 mg tablet 75 mg PO BID depression 10/19/13 [History Last Taken 11/16/18] albuterol sulfate 90 mcg/actuation aerosol inhaler (Ventolin HFA) 1 puff inhalation Q4H PRN PRN Wheezing 01/03/14 [History Last Taken 05/14/14] olanzapine 5 mg tablet (Zyprexa) 10 mg PO QHS depression 01/03/14 [History Last Taken 11/15/18] cholecalciferol (vitamin D3) 25 mcg (1,000 unit) tablet (Vitamin D3) 25 mcg PO DAILY supplement 01/06/17 [History Last Taken 11/16/18] rosuvastatin 20 mg tablet (Crestor) 20 mg PO QHS cholesterol 01/06/17 [History Last Taken 11/15/18] calcium carbonate 500 mg calcium (1,250 mg) tablet 500 mg PO PRN PRN Indigestion 11/16/18 [History Last Taken 11/16/18] hydrocortisone 2.5 % topical cream 1 applic topical BID PRN Dry Skin 11/16/18 [History Last Taken 11/16/18] memantine 5 mg tablet 10 mg PO BID 11/16/18 [History Last Taken 11/16/18] acetaminophen 500 mg tablet 1,000 mg (2 x 500 mg) PO Q8H PRN PRN Pain #20 tabs 11/18/18 [Rx Last Taken Unknown] fluticasone furoate 100 mcg-vilanterol 25 mcg/dose inhalation powder (Breo Ellipta) 1 inh inhalation DAILY 10/22/20 [History Last Taken Unknown] insulin glargine 100 unit/mL (3 mL) subcutaneous pen (Lantus Solostar U-100 Insulin) 6 unit subcut DAILY 10/22/20 [History Last Taken Unknown] insulin glargine 100 unit/mL (3 mL) subcutaneous pen (Lantus Solostar U-100 Insulin) 16 unit subcut QPM 10/22/20 [History Last Taken Unknown] insulin lispro 200 unit/mL (3 mL) subcutaneous pen (Humalog KwikPen U-200 Insulin) 0 unit subcut TID sliding scale 10/22/20 [History Last Taken Unknown] levetiracetam 500 mg tablet 500 mg PO BID 10/22/20 [History Last Taken Unknown] magnesium oxide 400 mg PO DAILY 10/22/20 [History Last Taken Unknown] methylprednisolone 4 mg tablet 4 mg PO DAILY 10/22/20 [History Last Taken Unknown] dicyclomine 10 mg capsule 20 mg (2 x 10 mg) PO TIDAC PRN Abdominal Pain #20 CAPSULES 09/11/22 [Rx Last Taken Unknown] Allergy/AdvReac Type Severity Reaction Status Date / Time atorvastatin calcium Allergy Unknown Verified 11/10/22 13:22 [From Lipitor] calcium Allergy Unknown Verified 11/10/22 13:22 ibuprofen [From Motrin] Allergy Unknown Verified 11/10/22 13:22 Surgical History History of angioplasty of peripheral vessel History of esophagogastroduodenoscopy (EGD) Hx laparoscopic cholecystectomy Hx of breast biopsy Hx of cataract extraction Hx of colonoscopy Social History Smoking Status: Current every day smoker tobacco type: cigarettes substance use type: does not use ROS <ROSA Brantley - Last Filed: 11/10/22 15:09> ROS ED Constitutional Constitutional ED: Denies chills or fever(s) Cardiovascular Cardiovascular: Denies chest pain Respiratory/Chest Respiratory/Chest: Denies cough or dyspnea Gastrointestinal Gastrointestinal: Denies abdominal pain, nausea or vomiting Musculoskeletal Musculoskeletal: Reports arthralgias; Denies myalgias Integumentary Denies Abrasions Neurologic Neurologic: Denies paresthesias or weakness EXAM <ROSA Brantley - Last Filed: 11/10/22 15:09> Physical Exam Const Vital Signs: 11/10/22 13:22 11/10/22 14:57 Temperature 96.8 F L 97.6 F L Temperature Source Temporal Pulse Rate 89 64 Respiratory Rate 14 14 Blood Pressure 133/72 H 156/78 H Blood Pressure Mean 92 Pulse Ox 94 99 Oxygen Delivery Method Room Air Positive well nourished, well developed and no apparent distress General Appearance ED: well developed HEENT Reports normocephalic and head/scalp atraumatic Mouth ED: Yes moist mucous membranes normal Eyes PERRL and EOMs intact bilaterally Neck full ROM and supple Chest Wall inspection of chest normal Resp normal respiratory effort and clear to auscultation bilaterally Cardio regular rate and regular rhythm GI soft to palpation, non-tender, non-distended and no masses Back/Spine normal ROM and normal to inspection Extremity normal to inspection and full ROM Extremity Narrative: Generalized pain palpation to the right knee without any erythema or effusion. Negative anterior and posterior drawer test. Intact flexion and extension of the right knee. General Extremety ED: Yes weight-bearing difficulty General Extremity: weight-bearing difficulty Neuro oriented x3, CN's II-XII intact bilaterally, moves all extremities, no focal motor deficits and no sensory deficits noted Sensorium / Orientation: awake and alert Psych mental status grossly normal and thought process normal Skin no rashes or lesions noted and no wounds <Dr. Karl Jacques DO - Last Filed: 11/10/22 15:41> Physical Exam Const Vital Signs: 11/10/22 13:22 11/10/22 14:57 Temperature 96.8 F L 97.6 F L Temperature Source Temporal Pulse Rate 89 64 Respiratory Rate 14 14 Blood Pressure 133/72 H 156/78 H Blood Pressure Mean 92 Pulse Ox 94 99 Oxygen Delivery Method Room Air MDM <ROSA Brantley - Last Filed: 11/10/22 15:09> MDM MDM Narrative Medical decision making narrative: Patient presenting today with pain to her right knee that she has had for the past week. She is well-appearing and in no acute distress, vitals are unremarkable. There is no visible edema to the knee or signs of infection or septic joint. She has pain to palpation that is generalized to her knee without any laxity noted. She does have pain with varus stress to the knee, I suspect that this may be meniscal in nature. However, she has a history of osteoarthritis to her knees bilaterally, x-ray will be obtained of the knee to rule out bony abnormality and is negative for any acute findings. She was given Tylenol here for pain. Attending did perform a joint injection with Kenalog and bupivacaine. She reports improvement of her symptoms, she was able to ambulate without difficulty. Following up with her PCP on Wednesday. She will be discharged home in stable condition and is comfortable with plan. Interventions / MDM: Differential diagnosis: Internal derangement right knee, Diagnosis considered but do not suspect: No clinical septic knee My EKG interpretation: N/A Imaging independently reviewed and interpreted by myself: 4 views right knee x-ray: Minimal arthritic changes and good spacing. No fracture or dislocation. External documents reviewed: N/A Test considered but not ordered:N/A ED course: Attending note: Patient seen and evaluated with real estate operations manager. I perform my own [id number] evaluation. I agree with the plan of work-up. Pain right knee a week ago after getting up from a table. No direct injuries. Pain worse with weightbearing. She ambulates with a walker at baseline. She is a diabetic. Does not see an orthopedist. Has appointment with her PCP office in 3 days. Exam knee extensor is intact on the right. No redness no warmth no swelling. Negative varus and valgus. Positive Aline's test with varus stress concerning for meniscus injury. Knee x-ray obtained and negative. Discussed joint injection with steroids and bupivacaine which she agreed to perform without complications. She is able to ambulate with her walker in the ED. She will keep her follow-up with her PCP. Joint injection: Verbal consent. Patient's right knee placed in 30 degree position. Medial aspect isolated, alcohol prep of the skin. 22-gauge needle directed medially into the joint, no bloody aspirate, joint injection a total of 5 cc bupivacaine with 2 cc of Kenalog. Needle removed no active bleeding. Bandage was placed. Patient tolerated procedure well. Re-evaluation: stable Disposition discussed with patient/family/significant other: Patient and family Case discussed with consulting clinician: N/A This note was generated with [employer] dictation software. It may contain incorrect words, spelling, and punctuation that were not noted in checking the note before signing. Radiography X-Ray: Read by ED Physician and Read by Radiologist Diagnostic Testing: Clinical Impression(s) from Imaging Studies Knee X-Ray 11/10/22 13:35 IMPRESSION: Normal x-ray examination of the knee. Electronically Signed: Joaquín Kirby MD at 13:56 EDT , <Dr. Karl Jacques, DO - Last Filed: 11/10/22 15:41> [facility] Narrative Medical decision making narrative: Patient presenting today with pain to her right knee that she has had for the past week. She is well-appearing and in no acute distress, vitals are unremarkable. There is no visible edema to the knee or signs of infection or septic joint. She has pain to palpation that is generalized to her knee without any laxity noted. She does have pain with varus and valgus stress to the knee, I suspect that this may be meniscal in nature. However, she has a history of osteoarthritis to her knees bilaterally, x-ray will be obtained of the knee to rule out bony abnormality and is negative for any acute findings. She was given Tylenol here for pain Interventions / MDM: Differential diagnosis: Internal derangement right knee, Diagnosis considered but do not suspect: No clinical septic knee My EKG interpretation: N/A Imaging independently reviewed and interpreted by myself: 4 views right knee x-ray: Minimal arthritic changes and good spacing. No fracture or dislocation. External documents reviewed: N/A Test considered but not ordered:N/A ED course: Attending note: Patient seen and evaluated with real estate operations manager. I perform my own [id number] evaluation. I agree with the plan of work-up. Pain right knee a week ago after getting up from a table. No direct injuries. Pain worse with weightbearing. She ambulates with a walker at baseline. She is a diabetic. Does not see an orthopedist. Has appointment with her PCP office in 3 days. Exam knee extensor is intact on the right. No redness no warmth no swelling. Negative varus and valgus. Positive Aline's test with varus stress concerning for meniscus injury. Knee x-ray obtained and negative. Discussed joint injection with steroids and bupivacaine which she agreed to perform without complications. She is able to ambulate with her walker in the ED. She will keep her follow-up with her PCP. Joint injection: Verbal consent. Patient's right knee placed in 30 degree position. Medial aspect isolated, alcohol prep of the skin. 22-gauge needle directed medially into the joint, no bloody aspirate, joint injection a total of 5 cc bupivacaine with 2 cc of Kenalog. Needle removed no active bleeding. Bandage was placed. Patient tolerated procedure well. Re-evaluation: stable Disposition discussed with patient/family/significant other: Patient and family Case discussed with consulting clinician: N/A This note was generated with [employer] dictation software. It may contain incorrect words, spelling, and punctuation that were not noted in checking the note before signing. Radiography Diagnostic Testing: Clinical Impression(s) from Imaging Studies Knee X-Ray 11/10/22 13:35 IMPRESSION: Normal x-ray examination of the knee. Electronically Signed: Joaquín Kirby MD at 13:56 EDT , Discharge Plan Triage Chief Complaint: Lower Extremity Injury ED Midlevel Provider: Haven Watson ED Provider: Karl Jacques Dx/Rx/DC Orders Clinical Impression: Meniscus, medial, derangement, Knee pain, right Instructions: ED Meniscal Injury Knee Poss Prescriptions: No Action metformin [Glucophage] 1,000 MG tablet 1,000 mg PO BID Patient Comments: BLOOD SUGAR-Diabetic aspirin 81 MG tablet,chewable 81 mg PO DAILY@0800 Patient Comments: Blood Thinner gabapentin 100 MG capsule 100 mg PO TID Patient Comments: NERVE PAIN venlafaxine 75 MG tablet 75 mg PO BID Patient Comments: Antidepressant clonazepam 0.5 MG tablet 0.5 mg PO BID Patient Comments: ANXIETY omeprazole 20 MG capsule 40 mg PO DAILY Patient Comments: HEART BURN olanzapine [Zyprexa] 5 MG tablet 10 mg PO QHS Patient Comments: Depression albuterol sulfate [Ventolin HFA] 1 INHALER inhaler 1 puff inhalation Q4H PRN PRN (Reason: Wheezing) Patient Comments: Helps with breathing rosuvastatin [Crestor] 20 MG tablet 20 mg PO QHS cholecalciferol (vitamin D3) [Vitamin D3] 1,000 tablet 25 mcg PO DAILY Patient Comments: calcium carbonate 500 MG tablet 500 mg PO PRN PRN (Reason: Indigestion) hydrocortisone 1 APPLIC cream 1 applic topical BID PRN (Reason: Dry Skin) memantine 5 MG tablet 10 mg PO BID acetaminophen 500 MG tablet 1,000 mg PO Q8H PRN PRN (Reason: Pain) Qty: 20 0RF levetiracetam 500 mg Tablet 500 mg PO BID methylprednisolone [Methylprednisone] 4 mg Tablet 4 mg PO DAILY Lantus Solostar U-100 Insulin 100 unit/mL (3 mL) Insulin Pen 16 unit SUBCUT QPM Lantus Solostar U-100 Insulin 100 unit/mL (3 mL) Insulin Pen 6 unit SUBCUT DAILY magnesium oxide 400 mg magnesium Capsule 400 mg PO DAILY Humalog KwikPen Insulin 200 unit/mL (3 mL) Insulin Pen 0 unit SUBCUT TID Rx Instructions: sliding scale Breo Ellipta 100-25 mcg/dose Blister With Device 1 inh INHALATION DAILY dicyclomine 10 mg capsule 20 mg PO TIDAC PRN (Reason: Abdominal Pain) Qty: 20 0RF Primary Care Provider: Jh Hewitt Referrals: Jh Hewitt MD [Primary Care Provider] - Keep [facility] appointment Activity Restrictions/Additional Instructions: Knee x-ray negative.Very little arthritic changes. Exam consistent with meniscus inflammation injury. You were given mixed dose of bupivacaine and Kenalog steroid injection in the ED. Keep your follow-up with your doctor in 3 days. Disposition Disposition: Home, Self Care Discharge Date/Time: 11/10/22 14:58
[2022-11-10] MEDS: Bupivacaine 0.5% PF 10 ML VIAL 5 ML IJ (14:44)
[2022-11-10] MEDS: Triamcinolone Acetonide 40 MG/ML Vial INTRAARTIC (14:45)
[2022-11-10 14:57] VITALS: BP 156/78; PULSE 64; RESP 14; TEMP 36.4; O2SAT 99
== END 2022-11-10 14:58 | disposition home or self-care (01) ==
PROVIDERS: Emergency Provider Emergency Medicine; PCP Internal Medicine; Visit Provider Emergency Medicine
DX: M23.303 Other meniscus derangements, unspecified medial meniscus, right knee (principal); J44.9 Chronic obstructive pulmonary disease, unspecified; E11.40 Type 2 diabetes mellitus with diabetic neuropathy, unspecified; F17.210 Nicotine dependence, cigarettes, uncomplicated; E78.00 Pure hypercholesterolemia, unspecified; M17.0 Bilateral primary osteoarthritis of knee
CPT/HCPCS: 73562; 99284

== ENCOUNTER 2022-12-05 13:20 | Emergency (ER) | payer MEDICARE, MEDICAID, SELFPAY ==
[2022-12-05 13:21] VITALS: BP 128/66; PULSE 90; RESP 27; TEMP 36.4; O2SAT 96; BMI 35.4
--- NOTE | 2022-12-05 13:59 | EDS_ITS ---
HPI History of Present Illness Chief Complaint: Shortness of Breath Informant: patient and EMS Narrative Narrative: 77-year-old female from assisted living presenting to the emergency department with a chief complaint of right hip pain. Patient states for the past week she has had pain in the right hip radiating down into the leg. It is worse with movement. It is forced her to have to start using a walker. She states today she was sitting on the couch and it took her over 30 minutes to get up because of the pain. This resulted in her having some incontinence. She was diagnosed with COVID-19 2 weeks ago and states that 1 week ago she developed some sh ortness of breath. She denies any significant cough or sputum production. No recent fever. She has a history of peripheral vascular disease, remote DVT, dyslipidemia diabetes and stroke. She states over the past week she has been using a ointment on her hip a pain pill and aspirin. She cannot be more specific than that. [facility] Medical History Anxiety Arthritis Back pain Bladder disease Cardiology follow-up encounter COPD (chronic obstructive pulmonary disease) Dementia Depression Dietary restriction DVT (deep venous thrombosis) Gastric reflux High cholesterol History of echocardiogram History of edema History of hypotension History of pain when walking History of steroid therapy History of stress test Hx of diabetic neuropathy Injury of back Insulin dependent diabetes mellitus Leg cramps Loss of consciousness Low iron Restless legs Seizures Shortness of breath on exertion Smoker Stroke/cerebrovascular accident Syncope Uses wheelchair Wears dentures Wears glasses Home Medications aspirin 81 mg chewable tablet 81 mg PO DAILY@0800 heart health 03/09/13 [History Last Taken 11/16/18] gabapentin 100 mg capsule 200 mg PO TID neuropathy 03/09/13 [History Last Taken 11/16/18] metformin 1,000 mg tablet (Glucophage) 1,000 mg PO BID diabetes 03/09/13 [History Last Taken 11/16/18] clonazepam 0.5 mg tablet 0.5 mg PO BID 10/19/13 [History Last Taken 11/16/18] omeprazole 20 mg capsule,delayed release 40 mg PO DAILY gerd 10/19/13 [History Last Taken 11/16/18] venlafaxine 75 mg tablet 75 mg PO BID depression 10/19/13 [History Last Taken 11/16/18] albuterol sulfate 90 mcg/actuation aerosol inhaler (Ventolin HFA) 1 puff inhalation Q4H PRN PRN Wheezing 01/03/14 [History Last Taken 05/14/14] olanzapine 5 mg tablet (Zyprexa) 10 mg PO QHS depression 01/03/14 [History Last Taken 11/15/18] cholecalciferol (vitamin D3) 25 mcg (1,000 unit) tablet (Vitamin D3) 25 mcg PO DAILY supplement 01/06/17 [History Last Taken 11/16/18] rosuvastatin 20 mg tablet (Crestor) 20 mg PO QHS cholesterol 01/06/17 [History Last Taken 11/15/18] calcium carbonate 500 mg calcium (1,250 mg) tablet 500 mg PO BID Indigestion 11/16/18 [History Last Taken 11/16/18] hydrocortisone 2.5 % topical cream 1 applic topical BID PRN Dry Skin 11/16/18 [History Last Taken 11/16/18] memantine 5 mg tablet 10 mg PO BID 11/16/18 [History Last Taken 11/16/18] acetaminophen 500 mg tablet 1,000 mg (2 x 500 mg) PO Q8H PRN PRN Pain #20 tabs 11/18/18 [Rx Last Taken Unknown] fluticasone furoate 100 mcg-vilanterol 25 mcg/dose inhalation powder (Breo Ellipta) 1 inh inhalation DAILY 10/22/20 [History Last Taken Unknown] insulin glargine 100 unit/mL (3 mL) subcutaneous pen (Lantus Solostar U-100 Insulin) 10 unit subcut DAILY 10/22/20 [History Last Taken Unknown] insulin glargine 100 unit/mL (3 mL) subcutaneous pen (Lantus Solostar U-100 In sulin) 16 unit subcut QPM 10/22/20 [History Last Taken Unknown] insulin lispro 200 unit/mL (3 mL) subcutaneous pen (Humalog KwikPen U-200 Insulin) See Protocol subcut TID sliding scale 10/22/20 [History Last Taken Unknown] levetiracetam 500 mg tablet 500 mg PO BID 10/22/20 [History Last Taken Unknown] magnesium oxide 400 mg PO DAILY 10/22/20 [History Last Taken Unknown] methylprednisolone 4 mg tablet 4 mg PO DAILY 10/22/20 [History Last Taken Unknown] alendronate 70 mg tablet 70 mg PO FR 12/05/22 [History Last Taken Unknown] artificial tears(hypromellose) 0.3 % eye gel (Systane Gel) 1 drp EACH EYE Q6H 12/05/22 [History Last Taken Unknown] dicyclomine 10 mg capsule 20 mg PO TIDAC Abdominal Pain 12/05/22 [History Last Taken Unknown] fluticasone propionate 50 mcg/actuation nasal spray,suspension 2 spray intranasal DAILY 12/05/22 [History Last Taken Unknown] guaifenesin 1,200 mg tablet, extended release 12 hr (Mucus Relief ER) 1,200 mg PO BID 12/05/22 [History Last Taken Unknown] naproxen 500 mg tablet 500 mg PO BID 12/05/22 [History Last Taken Unknown] vibegron 75 mg tablet (Gemtesa) 75 mg PO DAILY 12/05/22 [History Last Taken Unknown] Allergy/AdvReac Type Severity Reaction Status Date / Time atorvastatin calcium Allergy Unknown Verified 12/05/22 13:25 [From Lipitor] calcium Allergy Unknown Verified 12/05/22 13:25 ibuprofen [From Motrin] Allergy Unknown Verified 12/05/22 13:25 Surgical History History of angioplasty of peripheral vessel History of esophagogastroduodenoscopy (EGD) Hx laparoscopic cholecystectomy Hx of breast biopsy Hx of cataract extraction Hx of colonoscopy Social History Smoking Status: Current every day smoker tobacco type: cigarettes substance use type: does not use ROS ROS ED Constitutional Constitutional ED: Denies chills, fever(s) or weight loss Eyes Eyes: Denies change in vision or diplopia ENT ENT ED: Denies ear pain, rhinorrhea or sore throat Cardiovascular Cardiovascular: Denies chest pain, orthopnea, palpitations or racing heartbeat Respiratory/Chest Respiratory/Chest: Reports dyspnea and dyspnea on exertion; Denies cough or orthopnea Gastrointestinal Gastrointestinal: Denies abdominal pain, diarrhea, nausea or vomiting Genitourinary Genitourinary ED: Denies dysuria, hematuria or urinary frequency Musculoskeletal Musculoskeletal: Reports other Details: Right hip and leg pain ; Denies arthralgias or myalgias Integumentary Denies abscess or rash Neurologic Neurologic: Denies headache(s) or weakness Psychiatric Psychiatric: Denies anxiety, depression, suicidal ideation or suicidal thoughts Endocrine Endocrinology: Denies polydipsia, polyphagia or polyuria Allergic/Immunologic Allergic/Immunologic ED: Denies mouth swelling, tongue swelling or urticaria EXAM Physical Exam Const Vital Signs: 12/05/22 13:21 12/05/22 14:05 Temperature 97.6 F L Temperature Source Oral Pulse Rate 90 Respiratory Rate 27 H Respiratory Effort Short of Breath Respiratory Depth Shallow Respiratory Pattern Tachypnea Blood Pressure 128/66 H Blood Pressure Mean 86 Pulse Ox 96 Oxygen Delivery Method Room Air Room Air Positive well nourished, well developed and obese General Appearance ED: well developed Nutritional Appearance: obese HEENT Reports normocephalic, head/scalp atraumatic and moist mucous membranes Eyes PERRL and EOMs intact bilaterally Neck no lymphadenopathy, supple and no JVD Resp normal respiratory effort and clear to auscultation bilaterally Cardio regular rate, regular rhythm and no murmurs GI normal to inspection, nondistended, normoactive bowel sounds and non-tender Palpation: soft Back/Spine no CVA tenderness and normal ROM Extremity Extremity Narrative: Patient is tenderness palpation over the greater trochanter on the right. I do not appreciate muscle wasting. No foot drop. Sensation is preserved. +2 patellar and Achilles reflex. General Extremety ED: Negative for edema General Extremity: Negative for edema Neuro oriented x3 and CN's II-XII intact bilaterally Sensorium / Orientation: alert Motor Exam: strength 5/5 throughout Psych mental status grossly normal Mood & Affect: Negative for depressed or tearful Skin no rashes or lesions noted and no wounds MDM MDM MDM Narrative Medical decision making narrative: My independent interpretation of the chest x-ray is no consolidation. Interstitial changes noted. My independent interpretation of the plain films of the right hip and pelvis is no acute fracture. Mild arthritic changes noted EKG was obtained which shows a sinus rhythm. Is normal. This represents 1 week of dyspnea so I do not believe that this is cardiac ischemia in nature. Not see any evidence of pericarditis/effusion at this time. Her D-dimer is elevated does not correct for age. White count 13.4 hemoglobin 10.2 with a platelet count of 307. Creatinine 1.39 with a BUN of 36. Glucose of 188. Patient received a dose of Toradol and Norflex. She also received. CTA of the chest was obtained due to the patient's dyspnea and elevated D-dimer. After CTA the patient will attempt to ambulate with nursing. The care of the patient will be checked out to the oncoming physician Dr. March for check of CTA ambulation test pain medication effectiveness and final disposition. History & Record Review Discussion w/independent historian: EMS personnel, Patient and Family Lab Data Attestation: I reviewed the patient's lab results. Labs: Laboratory Results - last 24 hr 12/05/22 13:50 WBC 13.4 H RBC 4.24 Hgb 10.2 L Hct 34.7 L MCV 81.8 MCH 24.1 L MCHC 29.4 L RDW Std Deviation 48.3 H RDW Coeff of Fadumo 16.2 H Plt Count 307 MPV 11.2 Immature Gran % (Auto) 0.400 Neut % (Auto) 52.5 Lymph % (Auto) 38.7 [place] % (Auto) 6.3 Eos % (Auto) 1.6 Baso % (Auto) 0.5 Absolute Neuts (auto) 7.0 Absolute Lymphs (auto) 5.17 H Nucleated RBC % 0 Differential Comment SCANNED D-Dimer Quant (PE/DVT) 1.40 H* Sodium 139 Potassium 4.9 Chloride 105 Carbon Dioxide 26.0 Anion Gap 8 BUN 36 H Creatinine 1.39 H Estim Creat Clear Calc 28.93 Est GFR (MDRD) Af Amer 48 L Est GFR (MDRD) Non-Af 39 L BUN/Creatinine Ratio 25.9 H Glucose 188 H Calcium 8.8 Troponin I High Sens 8 Radiography Diagnostic Testing: Clinical Impression(s) from Imaging Studies Chest X-Ray 12/05/22 14:30 IMPRESSION: Bilateral pneumonitis new since prior study. Electronically Signed: Pablo Louis MD at 14:57 EDT , Hip/Pelvis X-Ray 12/05/22 14:30 IMPRESSION: Osteoarthritis of both hips. Electronically Signed: Pablo Louis MD at 14:57 EDT , EKG Initial EKG: Attestation: I personally reviewed and interpreted this EKG as follows: Comments: Sinus rhythm with a ventricular rate of 84 bpm. No definitive features of ACS noted Discharge Plan Triage Chief Complaint: Shortness of Breath ED Provider: Efra Borjas Dx/Rx/DC Orders Prescriptions: No Action metformin [Glucophage] 1,000 MG tablet 1,000 mg PO BID Patient Comments: BLOOD SUGAR-Diabetic aspirin 81 MG tablet,chewable 81 mg PO DAILY@0800 Patient Comments: Blood Thinner gabapentin 100 MG capsule 200 mg PO TID Patient Comments: NERVE PAIN venlafaxine 75 MG tablet 75 mg PO BID Patient Comments: Antidepressant clonazepam 0.5 MG tablet 0.5 mg PO BID Patient Comments: ANXIETY omeprazole 20 MG capsule 40 mg PO DAILY Patient Comments: HEART BURN olanzapine [Zyprexa] 5 MG tablet 10 mg PO QHS Patient Comments: Depression albuterol sulfate [Ventolin HFA] 1 INHALER inhaler 1 puff inhalation Q4H PRN PRN (Reason: Wheezing) Patient Comments: Helps with breathing rosuvastatin [Crestor] 20 MG tablet 20 mg PO QHS cholecalciferol (vitamin D3) [Vitamin D3] 1,000 tablet 25 mcg PO DAILY Patient Comments: calcium carbonate 500 MG tablet 500 mg PO BID hydrocortisone 1 APPLIC cream 1 applic topical BID PRN (Reason: Dry Skin) memantine 5 MG tablet 10 mg PO BID acetaminophen 500 MG tablet 1,000 mg PO Q8H PRN PRN (Reason: Pain) Qty: 20 0RF levetiracetam 500 mg Tablet 500 mg PO BID methylprednisolone [Methylprednisone] 4 mg Tablet 4 mg PO DAILY insulin glargine [Lantus Solostar U-100 Insulin] 100 unit/mL (3 mL) Insulin Pen 16 unit SUBCUT QPM insulin glargine [Lantus Solostar U-100 Insulin] 100 unit/mL (3 mL) Insulin Pen 10 unit SUBCUT DAILY magnesium oxide 400 mg magnesium Capsule 400 mg PO DAILY Humalog KwikPen Insulin 200 unit/mL (3 mL) Insulin Pen See Protocol SUBCUT TID Protocol: 4. Sliding Scale Insulin High-Med Dosing Condition: 150-199 mg/dl = 2 units Condition: 200-259 mg/dl = 4 units Condition: 260-324 mg/dl = 6 units Condition: 325-374 mg/dl = 8 units Condition: 375-409 mg/dl = 10 units Condition: 410-449 mg/dl = 11 units Condition: Greater than 449 call physician Protocol Text: - Use for Total Daily Dose of Insulin 56-80 units - Patient who are insulin resistant or septic HIGH MEDIUM DOSING ALGORITHM Rx Instructions: sliding scale fluticasone furoate-vilanterol [Breo Ellipta] 100-25 mcg/dose Blister With Device 1 inh INHALATION DAILY alendronate 70 mg tablet 70 mg PO FR fluticasone propionate 50 mcg/actuation spray,suspension 2 spray INTRANASAL DAILY Gemtesa 75 mg tablet 75 mg PO DAILY Systane Gel 0.3 % gel 1 drp EACH EYE Q6H naproxen 500 mg tablet 500 mg PO BID guaifenesin [Mucus Relief ER] 1,200 mg tablet extended release 12hr 1,200 mg PO BID dicyclomine 10 mg capsule 20 mg PO TIDAC Primary Care Provider: Jh Hewitt Referrals: Jh Hewitt MD [Primary Care Provider] -
[2022-12-05 14:05] VITALS: O2SAT 94
[2022-12-05] MEDS: HYDROcodone Bitartrate/Apap 5/325 Tablet PO (14:12)
[2022-12-05] MEDS: Ketorolac 15 MG/ML Vial IV (14:13)
[2022-12-05 14:17] LABS: Absolute Lymphocyte Count 5.17 X10^3/uL (0.83-4.51); Basophil# 0.07 X10^3/uL; Basophil% 0.5 % (0-1); Eosinophil# 0.22 X10^3/uL; Eosinophils% 1.6 % (0-5); Hematocrit 34.7 % (37-47); Hemoglobin 10.2 g/dL (12.0-15.0); Lymphocyte # 5.17 X10^3/ul (0.83-4.51); Lymphocyte % 38.7 % (19-41); Mean Corp Hgb Conc 29.4 g/dL (32-36); Mean Corpuscular Hgb 24.1 pg (27.0-32.0); Mean Corpuscular Volume 81.8 fL (81-99); Mean Platelet Vol. 11.2 fl (6.2-12.0); Monocyte# 0.84 X10^3/uL; Monocyte% 6.3 % (0-10); NRBC Flagged by Analyzer 0 % (0-5); Neutrophil % 52.5 % (47-70); POSITIVE DIFFERENTIAL YES; Platelet Count 307 K/mm3 (150-450); RBC Distribution Width CV 16.2 % (11.6-14.6); RBC Distribution Width SD 48.3 fl (35.1-43.9); Red Blood Count 4.24 M/mm3 (4.2-5.4); White Blood Count 13.4 K/mm3 (4.4-11.0)
--- NOTE | 2022-12-05 14:30 | RAD_ITS ---
INDICATION: pain EXAMINATION/TECHNIQUE: X-RAY - XR Hip Unilateral with Pelvis when performed; 2-3 Views COMPARISON: FINDINGS: PELVIC BONES: No displaced fracture, destructive or sclerotic lesions. Note that overlapping bowel shadows may however obscure fine detail. Sacroiliac joints are unremarkable. No widening of the pubic symphysis. HIPS: Moderate bilateral hip joint space narrowing. No displaced fracture seen in this frontal view. SOFT TISSUES: No soft tissue swelling or gas. RAD/HIP, UNI W/ Pelvis 2-3 Views IMPRESSION: Osteoarthritis of both hips. Electronically Signed: Pablo Louis MD at 14:57 EDT ,
--- NOTE | 2022-12-05 14:30 | RAD_ITS ---
INDICATION: dyspnea EXAMINATION/TECHNIQUE: X-RAY - XR Chest 1 View COMPARISON: C-arm 01/06/2017 FINDINGS: LINES/DEVICES: None. LUNGS: Moderate bilateral perihilar and bibasilar infiltrates. MEDIASTINUM AND CARDIOVASCULAR STRUCTURES: Cardiac silhouette not enlarged. Central airways and mediastinal contour are unremarkable. BONES AND SOFT TISSUES: Unremarkable. RAD/Chest 1 View (Portable) IMPRESSION: Bilateral pneumonitis new since prior study. Electronically Signed: Pablo Louis MD at 14:57 EDT ,
[2022-12-05 14:37] LABS: Differential Indicated SCAN CRITERIA MET
[2022-12-05 14:43] LABS: Anion Gap 8 (5-15); BUN 36 mg/dL (7-18); BUN/Creat Ratio 25.9 RATIO (10-20); Calcium,Total 8.8 mg/dL (8.5-10.1); Chloride 105 mmol/L (98-107); Creatinine, Serum 1.39 mg/dL (0.55-1.02); EST Glomerular Filtration Rate 39 mL/min (>60); Est Glom Filt Rate - Afr Amer 48 mL/min (>60); Estimated Creatinine Clearance 28.93 ml/min; Glucose 188 mg/dL (74-106); Potassium 4.9 mmol/L (3.5-5.1); Sodium Level 139 mmol/L (136-145); Troponin-I HS 8 pg/mL (3.0-54.0)
[2022-12-05 14:57] LABS: Differential Comment SCANNED
--- NOTE | 2022-12-05 15:02 | CT_ITS ---
EXAM: CT ANGIOGRAPHY CHEST WITH INTRAVENOUS CONTRAST CLINICAL INDICATION: pulmonary embolism tachypnea TECHNIQUE: Helically acquired angiography images were obtained of the chest with intravenous contrast. This CT exam was performed using one or more of the following dose reduction techniques: automated exposure control, adjustment of the mA and/or kV according to patient size, and/or use of iterative reconstruction technique. MIP reconstructed images were created and reviewed. CONTRAST: IV 75mL [id number] COMPARISON: Chest radiograph on the same date. CT abdomen and pelvis, 09/11/2022. FINDINGS: PULMONARY ARTERIES: No significant abnormality. Normal in caliber. No evidence of pulmonary embolism. AORTA: No significant abnormality. Normal in caliber. No evidence of dissection. GREAT VESSELS OF AORTIC ARCH: No significant abnormality. Normal in caliber. No evidence of dissection. LUNGS AND PLEURAL SPACES: Diffuse patchy groundglass and consolidative pulmonary opacities are identified throughout both lungs likely secondary to multifocal pneumonia and/or pulmonary edema. There are multiple pulmonary nodules mostly in the right upper and lower lobes, the largest measuring up to 9 mm. No pleural effusion or thickening. HEART: No significant abnormality. Heart size is normal. No pericardial effusion. There are coronary artery calcifications. MEDIASTINUM: Mediastinal and bilateral hilar lymphadenopathy is present. Esophagus is unremarkable. Small hiatal hernia. Atherosclerosis of the aorta and its branch vessels. THYROID: No significant abnormality. No thyroid lesions. BONES/JOINTS: Multilevel degenerative changes in the spine. No suspicious lytic or blastic abnormality. CT/CTA Chest W/WO Contrast IMPRESSION: 1. No evidence of pulmonary artery embolus. 2. Diffuse patchy groundglass and consolidative pulmonary opacities are identified throughout both lungs likely secondary to multifocal pneumonia and/or pulmonary edema. 3. There are multiple pulmonary nodules mostly in the right upper and lower lobes, the largest measuring up to 9 mm. Fleischner Society Guidelines (MacMahon, et al. Radiology 2017; 284(1):228-43) suggest the following. For low-risk patients recommend follow-up chest CT at 3-6 months. If unchanged consider an additional follow-up CT at 18-24 months. For high-risk patients initial follow-up chest CT at 3-6 months and if unchanged, 18-24 months. 4. Mediastinal and bilateral hilar lymphadenopathy is present. Electronically Signed: Sergo Morgan DO at 16:26 EDT ,
[2022-12-05 15:21] VITALS: BP 125/64; PULSE 86; RESP 16; O2SAT 16
[2022-12-05] MEDS: Ipratropium/Albuterol Sulfate 3 ML AMPUL.NEB INHALATION (15:22)
[2022-12-05 15:31] VITALS: PULSE 89; RESP 18
[2022-12-05 16:49] VITALS: BP 92/61; PULSE 102; RESP 21; O2SAT 98
== END 2022-12-05 16:58 | disposition home or self-care (01) ==
PROVIDERS: Emergency Provider Emergency Medicine; PCP Internal Medicine; Visit Provider Emergency Medicine
DX: R06.02 Shortness of breath (principal); E11.51 Type 2 diabetes mellitus with diabetic peripheral angiopathy without gangrene; F03.90 Unspecified dementia, unspecified severity, without behavioral disturbance, psychotic disturbance, mood disturbance, and anxiety; E11.40 Type 2 diabetes mellitus with diabetic neuropathy, unspecified; R56.9 Unspecified convulsions; Z79.4 Long term (current) use of insulin; E78.00 Pure hypercholesterolemia, unspecified; F17.210 Nicotine dependence, cigarettes, uncomplicated; Z86.73 Personal history of transient ischemic attack (TIA), and cerebral infarction without residual deficits; Z79.899 Other long term (current) drug therapy; Z79.82 Long term (current) use of aspirin; Z79.84 Long term (current) use of oral hypoglycemic drugs; F41.9 Anxiety disorder, unspecified; K21.9 Gastro-esophageal reflux disease without esophagitis; F32.A Depression, unspecified; Z90.49 Acquired absence of other specified parts of digestive tract; Z98.49 Cataract extraction status, unspecified eye
CPT/HCPCS: 71045; 71275; 73502; 80048; 84484; 85025; 85379; 93005; 94640; 96374; 99285; Q9967; A4216

== ENCOUNTER 2022-12-19 09:57 | Emergency (ER) | payer MEDICARE, MEDICAID, SELFPAY ==
[2022-12-19 09:58] VITALS: BP 103/37; PULSE 94; RESP 18; TEMP 36.4; O2SAT 92; BMI 33.5
[2022-12-19 10:16] VITALS: O2SAT 94
--- NOTE | 2022-12-19 10:25 | CT_ITS ---
STUDY: CT CERVICAL SPINE WITHOUT CONTRAST REASON FOR EXAM: Female, 77 years old. Headache and neck pain after trauma RADIATION DOSAGE (If Supplied By Facility): CTDIvol = ( 24.95 ) mGy, DLP = ( 506.18 ) mGycm TECHNIQUE: High resolution transaxial imaging was performed without contrast material. Sagittal and coronal images were reconstructed. Individualized dose optimization techniques were used for this CT. COMPARISON: None FINDINGS: Normal craniovertebral junction. There are degenerative changes of the anterior atlantoaxial articulation. Normal odontoid process. There is straightening of the normal cervical lordosis. Bones are demineralized. C2-3: Normal endplates. Mild disc space narrowing.. Normal central canal and intervertebral neuroforamina. C3-4: Normal endplates. Disc space narrowing with posterior uncovertebral spurs. No central canal narrowing, there is bilateral foraminal narrowing due to facet joint hypertrophy left greater than right. C4-5: Normal endplates. Disc space narrowing without central canal stenosis. Bilateral foraminal narrowing due to facet joint hypertrophy. C5-6: Normal endplates. Mild disc space narrowing. Normal central canal and intervertebral neuroforamina. C6-7: Normal endplates. Normal disc height and morphology. Normal central canal and intervertebral neuroforamina. C7-T1: Normal endplates. Normal disc height and morphology. Normal central canal and intervertebral neuroforamina. Prevertebral soft tissues show evidence of chronic right mastoiditis. Dense calcifications noted in the carotid artery bulbs. Thyroid gland is unremarkable chronic interstitial changes noted in both upper lung licea. CT/Spine Cervical without Contras IMPRESSION: Multilevel degenerative changes, as described above. Electronically Signed: Al Norwood MD at 11:44 EST ,
--- NOTE | 2022-12-19 10:25 | CT_ITS ---
STUDY: CT BRAIN WITHOUT CONTRAST REASON FOR EXAM: Female, 77 years old. Headache after trauma RADIATION DOSAGE (If Supplied By Facility): CTDIvol = ( ) mGy, DLP = ( ) mGycm TECHNIQUE: Transaxial CT imaging of the brain was performed without administration of intravenous contrast material. Individualized dose optimization techniques were used for this CT. COMPARISON: 11/15/2019 FINDINGS: Normal soft tissue structures. Normal calvarium. There is mild cerebral atrophy with widening of the extra-axial spaces and ventricular dilatation. There are areas of decreased attenuation within the white matter tracts of the supratentorial brain, consistent with microvascular disease changes. Normal basal ganglia and thalami. Normal brainstem. Normal cerebellum. There is no intracranial hemorrhage. There are no findings of an acute ischemic infarction. Normal visualized paranasal sinuses. Evidence of previous cataract surgery CT/Brain/Head without Contrast IMPRESSION: Chronic involutional changes of the brain. No acute hemorrhage or significant interval change Electronically Signed: Al Norwood MD at 11:41 EST ,
--- NOTE | 2022-12-19 10:25 | RAD_ITS ---
STUDY: X-RAY - PELVIS AND RIGHT HIP REASON FOR EXAM: Female, 77 years old. Fall TECHNIQUE: 3 views of the pelvis and hip. COMPARISON: 12/05/2022 FINDINGS: There is a non-specific bowel gas pattern. Normal visualized soft tissue structures. There is diffuse demineralization of the osseous structures. There is narrowing with cortical sclerosis and osteophyte formation of the sacroiliac joint consistent with degenerative osteoarthritic changes. Normal bilateral superior and inferior pubic rami. Normal pubic symphysis. Normal bilateral ischial tuberosities. Normal visualized femoral head. Normal acetabulum. There is mild articular joint space narrowing of the hip. Similar arthritic changes noted in the left hip RAD/HIP, UNI W/ Pelvis 2-3 Views IMPRESSION: Age consistent degenerative changes, no acute findings. Electronically Signed: Al Norwood MD at 11:09 EST ,
--- NOTE | 2022-12-19 10:26 | EDS_ITS ---
HPI HPI - Fall History of Present Illness Chief Complaint: Fall Informant: patient Occured/Mechanism Occurred: Today Narrative Narrative: Patient presents after a fall at [facility]. Patient reportedly had difficulty sleeping last night and has been up since 3 AM. She was medicated with her Klonopin and tramadol which she recently started. When she got up to ambulate with her walker this morning she states it took off on her and she fell. She complains of right hip pain, but states she has chronic right hip pain and it is not significantly worse than previous. She is not on blood thinners. PFSH PFS Medical History Anxiety Arthritis Back pain Bladder disease Cardiology follow-up encounter COPD (chronic obstructive pulmonary disease) Dementia Depression Dietary restriction DVT (deep venous thrombosis) Gastric reflux High cholesterol History of echocardiogram History of edema History of hypotension History of pain when walking History of steroid therapy History of stress test Hx of diabetic neuropathy Injury of back Insulin dependent diabetes mellitus Leg cramps Loss of consciousness Low iron Restless legs Seizures Shortness of breath on exertion Smoker Stroke/cerebrovascular accident Syncope Uses wheelchair Wears dentures Wears glasses Home Medications aspirin 81 mg chewable tablet 81 mg PO DAILY@0800 heart health 03/09/13 [History Last Taken 12/19/22] gabapentin 100 mg capsule 200 mg PO TID neuropathy 03/09/13 [History Last Taken 12/19/22] metformin 1,000 mg tablet (Glucophage) 1,000 mg PO BID diabetes 03/09/13 [History Last Taken 12/19/22] clonazepam 0.5 mg tablet 0.5 mg PO BID 10/19/13 [History Last Taken 12/19/22] omeprazole 20 mg capsule,delayed release 40 mg PO DAILY gerd 10/19/13 [History Last Taken 12/19/22] venlafaxine 75 mg tablet 75 mg PO BID depression 10/19/13 [History Last Taken 12/19/22] albuterol sulfate 90 mcg/actuation aerosol inhaler (Ventolin HFA) 1 puff inhalation Q4H PRN PRN Wheezing 01/03/14 [History Last Taken 05/14/14] olanzapine 5 mg tablet (Zyprexa) 10 mg PO QHS depression 01/03/14 [History Last Taken 12/18/22] cholecalciferol (vitamin D3) 25 mcg (1,000 unit) tablet (Vitamin D3) 25 mcg PO DAILY supplement 01/06/17 [History Last Taken 12/19/22] rosuvastatin 20 mg tablet (Crestor) 20 mg PO QHS cholesterol 01/06/17 [History Last Taken 12/18/22] calcium carbonate 500 mg calcium (1,250 mg) tablet 500 mg PO BID Indigestion 11/16/18 [History Last Taken 12/19/22] memantine 5 mg tablet 10 mg PO BID 11/16/18 [History Last Taken 12/19/22] acetaminophen 500 mg tablet 1,000 mg (2 x 500 mg) PO Q8H PRN PRN Pain #20 tabs 11/18/18 [Rx Last Taken 12/18/22] fluticasone furoate 100 mcg-vilanterol 25 mcg/dose inhalation powder (Breo Ellipta) 1 inh inhalation DAILY 10/22/20 [History Last Taken 12/19/22] insulin glargine 100 unit/mL (3 mL) subcutaneous pen (Lantus Solostar U-100 Insulin) 10 unit subcut DAILY 10/22/20 [History Last Taken 12/19/22] insulin glargine 100 unit/mL (3 mL) subcutaneous pen (Lantus Solostar U-100 Insulin) 16 unit subcut QPM 10/22/20 [History Last Taken 12/18/22] insulin lispro 200 unit/mL (3 mL) subcutaneous pen (Humalog KwikPen U-200 Insulin) See Protocol subcut TID sliding scale 10/22/20 [History Last Taken 12/19/22] levetiracetam 500 mg tablet 500 mg PO BID 10/22/20 [History Last Taken 12/19/22] magnesium oxide 400 mg PO DAILY 10/22/20 [History Last Taken 12/19/22] alendronate 70 mg tablet 70 mg PO FR 12/05/22 [History Last Taken 12/18/22] artificial tears(hypromellose) 0.3 % eye gel (Systane Gel) 1 drp EACH EYE Q6H 12/05/22 [History Last Taken 12/19/22] dicyclomine 10 mg capsule 20 mg PO TIDAC Abdominal Pain 12/05/22 [History Last Taken 12/19/22] fluticasone propionate 50 mcg/actuation nasal spray,suspension 2 spray intranasal DAILY 12/05/22 [History Last Taken 12/19/22] guaifenesin 1,200 mg tablet, extended release 12 hr (Mucus Relief ER) 1,200 mg PO BID 12/05/22 [History Last Taken 12/19/22] vibegron 75 mg tablet (Gemtesa) 75 mg PO DAILY 12/05/22 [History Last Taken 12/19/22] tramadol 50 mg tablet 50 mg PO TID PRN pain 12/19/22 [History Last Taken 12/19/22] Allergy/AdvReac Type Severity Reaction Status Date / Time atorvastatin calcium Allergy Unknown Verified 12/19/22 10:18 [From Lipitor] calcium Allergy Unknown Verified 12/19/22 10:18 ibuprofen [From Motrin] Allergy Unknown Verified 12/19/22 10:18 Surgical History History of angioplasty of peripheral vessel History of esophagogastroduodenoscopy (EGD) Hx laparoscopic cholecystectomy Hx of breast biopsy Hx of cataract extraction Hx of colonoscopy Social History Smoking Status: Current every day smoker tobacco type: cigarettes substance use type: does not use ROS ROS ED Constitutional Constitutional ED: Denies chills or fever(s) Eyes Eyes: Denies change in vision ENT ENT ED: Denies rhinorrhea or sore throat Cardiovascular Cardiovascular: Denies chest pain Respiratory/Chest Respiratory/Chest: Denies cough or dyspnea Gastrointestinal Gastrointestinal: Denies abdominal pain, nausea or vomiting Musculoskeletal Musculoskeletal: Reports extremity pain; Denies back pain Integumentary Denies Abrasions or rash Neurologic Neurologic: Denies headache(s) or weakness Psychiatric Psychiatric: Denies anxiety or depression Allergic/Immunologic Allergic/Immunologic ED: Denies lip swelling or urticaria EXAM Physical Exam Const Vital Signs: 12/19/22 09:58 12/19/22 10:16 12/19/22 11:14 Temperature 97.5 F L Temperature Source Temporal Pulse Rate 94 Respiratory Rate 18 Respiratory Effort Normal Non-Labored Respiratory Depth Normal Respiratory Pattern Normal Blood Pressure 103/37 L 125/65 H Blood Pressure Mean 59 85 Pulse Ox 92 94 Oxygen Delivery Method Room Air Room Air Positive well nourished and well developed General Appearance ED: well developed HEENT Reports normocephalic atraumatic Eyes PERRL and EOMs intact bilaterally Neck full ROM Neck Narrative: No C-spine tenderness. Chest Wall inspection of chest normal and palpation of chest normal Resp normal respiratory effort and clear to auscultation bilaterally Cardio regular rate and regular rhythm GI non-tender and no masses Extremity Extremity Narrative: Mild tenderness over the greater trochanter of the right hip. No pain with logroll of the leg. Equal leg lengths. Neuro Neuro Narrative: Patient alert and appropriate. Answers questions. Psych mental status grossly normal Skin Trauma: Negative for abrasion MDM MDM MDM Narrative Medical decision making narrative: Patient appears well but is slightly sleepy, likely from not sleeping and being medicated with tramadol and Klonopin. However, given her fall and history of dementia she will undergo a head and C-spine CT to rule out any evidence of trauma. Right hip and pelvis x-rays will also be obtained to evaluate for fracture. Radiography Diagnostic Testing: Clinical Impression(s) from Imaging Studies Brain CT 12/19/22 10:25 IMPRESSION: Chronic involutional changes of the brain. No acute hemorrhage or significant interval change Electronically Signed: Al Norwood MD at 11:41 EST , Cervical Spine CT 12/19/22 10:25 IMPRESSION: Multilevel degenerative changes, as described above. Electronically Signed: Al Norwood MD at 11:44 EST , Hip/Pelvis X-Ray 12/19/22 10:25 IMPRESSION: Age consistent degenerative changes, no acute findings. Electronically Signed: Al Norwood MD at 11:09 EST , Treatment and Re-Evaluation Narrative: On repeat evaluation patient resting comfortably. Daughter is now at bedside. CT scan of the head and C-spine revealed chronic changes with no acute findings. Pelvis and right hip x-ray per my interpretation reveals chronic changes with no evidence of fracture. Radiology interpretation is reviewed and agrees. Test results are discussed with patient as well as her daughter. She is sleepy at this time, however I believe this is likely because she has been up half the night and was given Klonopin and tramadol. She will be discharged back to [facility]. Discharge Plan Triage Chief Complaint: Fall ED Provider: Ana Maria Dunn Dx/Rx/DC Orders Clinical Impression: Contusion of hip, Fall Instructions: ED Contusion, Lower Extremity, ED Mechanical Fall Prescriptions: No Action metformin [Glucophage] 1,000 MG tablet 1,000 mg PO BID Patient Comments: BLOOD SUGAR-Diabetic aspirin 81 MG tablet,chewable 81 mg PO DAILY@0800 Patient Comments: Blood Thinner gabapentin 100 MG capsule 200 mg PO TID Patient Comments: NERVE PAIN venlafaxine 75 MG tablet 75 mg PO BID Patient Comments: Antidepressant clonazepam 0.5 MG tablet 0.5 mg PO BID Patient Comments: ANXIETY omeprazole 20 MG capsule 40 mg PO DAILY Patient Comments: HEART BURN olanzapine [Zyprexa] 5 MG tablet 10 mg PO QHS Patient Comments: Depression albuterol sulfate [Ventolin HFA] 1 INHALER inhaler 1 puff inhalation Q4H PRN PRN (Reason: Wheezing) Patient Comments: Helps with breathing rosuvastatin [Crestor] 20 MG tablet 20 mg PO QHS cholecalciferol (vitamin D3) [Vitamin D3] 1,000 tablet 25 mcg PO DAILY Patient Comments: calcium carbonate 500 MG tablet 500 mg PO BID memantine 5 MG tablet 10 mg PO BID acetaminophen 500 MG tablet 1,000 mg PO Q8H PRN PRN (Reason: Pain) Qty: 20 0RF levetiracetam 500 mg Tablet 500 mg PO BID insulin glargine [Lantus Solostar U-100 Insulin] 100 unit/mL (3 mL) Insulin Pen 16 unit SUBCUT QPM insulin glargine [Lantus Solostar U-100 Insulin] 100 unit/mL (3 mL) Insulin Pen 10 unit SUBCUT DAILY magnesium oxide 400 mg magnesium Capsule 400 mg PO DAILY Humalog KwikPen Insulin 200 unit/mL (3 mL) Insulin Pen See Protocol SUBCUT TID Protocol: 4. Sliding Scale Insulin High-Med Dosing Condition: 150-199 mg/dl = 2 units Condition: 200-259 mg/dl = 4 units Condition: 260-324 mg/dl = 6 units Condition: 325-374 mg/dl = 8 units Condition: 375-409 mg/dl = 10 units Condition: 410-449 mg/dl = 11 units Condition: Greater than 449 call physician Protocol Text: - Use for Total Daily Dose of Insulin 56-80 units - Patient who are insulin resistant or septic HIGH MEDIUM DOSING ALGORITHM Rx Instructions: sliding scale fluticasone furoate-vilanterol [Breo Ellipta] 100-25 mcg/dose Blister With Device 1 inh INHALATION DAILY tramadol 50 mg tablet 50 mg PO TID PRN (Reason: pain) alendronate 70 mg tablet 70 mg PO FR fluticasone propionate 50 mcg/actuation spray,suspension 2 spray INTRANASAL DAILY Gemtesa 75 mg tablet 75 mg PO DAILY Systane Gel 0.3 % gel 1 drp EACH EYE Q6H guaifenesin [Mucus Relief ER] 1,200 mg tablet extended release 12hr 1,200 mg PO BID dicyclomine 10 mg capsule 20 mg PO TIDAC Primary Care Provider: Jh Hewitt Referrals: Jh Hewitt MD [Primary Care Provider] - 1 Week
[2022-12-19 11:14] VITALS: BP 125/65
--- NOTE | 2022-12-19 12:02 | ED.RN ---
kim gates called in for pt update
== END 2022-12-19 12:40 | disposition home or self-care (01) ==
PROVIDERS: Emergency Provider Emergency Medicine; PCP Internal Medicine; Visit Provider Emergency Medicine
DX: S70.01XA Contusion of right hip, initial encounter (principal); J44.9 Chronic obstructive pulmonary disease, unspecified; E11.40 Type 2 diabetes mellitus with diabetic neuropathy, unspecified; Z79.4 Long term (current) use of insulin; W19.XXXA Unspecified fall, initial encounter; E78.00 Pure hypercholesterolemia, unspecified; G89.29 Other chronic pain; F17.210 Nicotine dependence, cigarettes, uncomplicated; Z79.82 Long term (current) use of aspirin; Z79.84 Long term (current) use of oral hypoglycemic drugs; Z79.899 Other long term (current) drug therapy; Y92.099 Unspecified place in other non-institutional residence as the place of occurrence of the external cause
CPT/HCPCS: 70450; 72125; 73502; 99284; A4216

== ENCOUNTER 2023-01-25 00:07 | Inpatient (IN) | payer MEDICARE, MEDICAID, SELFPAY ==
[2023-01-25] VITALS (10 sets, daily range): BP systolic 105–159; BP diastolic 58–99; PULSE 74–94; RESP 16–28; TEMP 36–36.6; O2SAT 86–98; BMI 33.1; BMI 34.0; BMI 34.1
--- NOTE | 2023-01-25 00:34 | EKG12_ITS ---
Test Reason : DYSRHYTHMIA Blood Pressure : / mmHG Vent. Rate : 089 BPM Atrial Rate : 089 BPM P-R Int : 164 ms QRS Dur : 076 ms QT Int : 358 ms P-R-T Axes : 033 004 059 degrees QTc Int : 435 ms Normal sinus rhythm Low voltage QRS Borderline ECG Confirmed by CHIN FELICIANO, CONSUELO ([id number]), editor index AUDELIA PRASAD ([id number]) on 01/25/2023 1:13:31 PM Referred By: Garrett De Guzman Confirmed By:CONSUELO NEELY MD
--- NOTE | 2023-01-25 00:36 | EX.ED.DYSGE1 ---
HPI History of Present Illness Chief Complaint: Nausea/Vomiting/Diarrhea Informant: patient and EMS Narrative Narrative: Patient in assisted living and about 1.5 hours prior to evaluation she states she woke up sweating from her face and head. She noticed headache, it was not severe it is still there, myalgias, and feeling weird all over. Nausea no vomiting. She had a bout of diarrhea earlier in the day. Staff did a COVID swab that was negative according to the patient and sent her here to the ER for evaluation. She does not feel sweaty anymore. She fell like she had a fever when this happened. She does not have one here now. She denies any chest discomfort, trouble breathing, abdominal pain, but she has had some coughing for the last day. [facility] Medical History Anxiety Arthritis Back pain Bladder disease Cardiology follow-up encounter COPD (chronic obstructive pulmonary disease) Dementia Depression Dietary restriction DVT (deep venous thrombosis) Gastric reflux High cholesterol History of echocardiogram History of edema History of hypotension History of pain when walking History of steroid therapy History of stress test Hx of diabetic neuropathy Injury of back Insulin dependent diabetes mellitus Leg cramps Loss of consciousness Low iron Restless legs Seizures Shortness of breath on exertion Smoker Stroke/cerebrovascular accident Syncope Uses wheelchair Wears dentures Wears glasses Home Medications aspirin 81 mg chewable tablet 81 mg PO DAILY@0800 heart health 03/09/13 [History Last Taken 12/19/22] gabapentin 100 mg capsule 200 mg PO TID neuropathy 03/09/13 [History Last Taken 12/19/22] metformin 1,000 mg tablet (Glucophage) 1,000 mg PO BID diabetes 03/09/13 [History Last Taken 12/19/22] clonazepam 0.5 mg tablet 0.5 mg PO BID 10/19/13 [History Last Taken 12/19/22] omeprazole 20 mg capsule,delayed release 40 mg PO DAILY gerd 10/19/13 [History Last Taken 12/19/22] venlafaxine 75 mg tablet 75 mg PO BID depression 10/19/13 [History Last Taken 12/19/22] albuterol sulfate 90 mcg/actuation aerosol inhaler (Ventolin HFA) 1 puff inhalation Q4H PRN PRN Wheezing 01/03/14 [History Last Taken 05/14/14] olanzapine 5 mg tablet (Zyprexa) 10 mg PO QHS depression 01/03/14 [History Last Taken 12/18/22] cholecalciferol (vitamin D3) 25 mcg (1,000 unit) tablet (Vitamin D3) 25 mcg PO DAILY supplement 01/06/17 [History Last Taken 12/19/22] rosuvastatin 20 mg tablet (Crestor) 20 mg PO QHS cholesterol 01/06/17 [History Last Taken 12/18/22] calcium carbonate 500 mg calcium (1,250 mg) tablet 500 mg PO BID Indigestion 11/16/18 [History Last Taken 12/19/22] memantine 5 mg tablet 10 mg PO BID 11/16/18 [History Last Taken 12/19/22] acetaminophen 500 mg tablet 1,000 mg (2 x 500 mg) PO Q8H PRN PRN Pain #20 tabs 11/18/18 [Rx Last Taken 12/18/22] fluticasone furoate 100 mcg-vilanterol 25 mcg/dose inhalation powder (Breo Ellipta) 1 inh inhalation DAILY 10/22/20 [History Last Taken 12/19/22] insulin glargine 100 unit/mL (3 mL) subcutaneous pen (Lantus Solostar U-100 Insulin) 10 unit subcut DAILY 10/22/20 [History Last Taken 12/19/22] insulin glargine 100 unit/mL (3 mL) subcutaneous pen (Lantus Solostar U-100 Insulin) 16 unit subcut QPM 10/22/20 [History Last Taken 12/18/22] insulin lispro 200 unit/mL (3 mL) subcutaneous pen (Humalog KwikPen U-200 Insulin) See Protocol subcut TID sliding scale 10/22/20 [History Last Taken 12/19/22] levetiracetam 500 mg tablet 500 mg PO BID 10/22/20 [History Last Taken 12/19/22] magnesium oxide 400 mg PO DAILY 10/22/20 [History Last Taken 12/19/22] alendronate 70 mg tablet 70 mg PO FR 12/05/22 [History Last Taken 12/18/22] artificial tears(hypromellose) 0.3 % eye gel (Systane Gel) 1 drp EACH EYE Q6H 12/05/22 [History Last Taken 12/19/22] dicyclomine 10 mg capsule 20 mg PO TIDAC Abdominal Pain 12/05/22 [History Last Taken 12/19/22] fluticasone propionate 50 mcg/actuation nasal spray,suspension 2 spray intranasal DAILY 12/05/22 [History Last Taken 12/19/22] guaifenesin 1,200 mg tablet, extended release 12 hr (Mucus Relief ER) 1,200 mg PO BID 12/05/22 [History Last Taken 12/19/22] vibegron 75 mg tablet (Gemtesa) 75 mg PO DAILY 12/05/22 [History Last Taken 12/19/22] tramadol 50 mg tablet 50 mg PO TID PRN pain 12/19/22 [History Last Taken 12/19/22] Allergy/AdvReac Type Severity Reaction Status Date / Time atorvastatin calcium Allergy Unknown Verified 12/19/22 10:18 [From Lipitor] calcium Allergy Unknown Verified 12/19/22 10:18 ibuprofen [From Motrin] Allergy Unknown Verified 12/19/22 10:18 Surgical History History of angioplasty of peripheral vessel History of esophagogastroduodenoscopy (EGD) Hx laparoscopic cholecystectomy Hx of breast biopsy Hx of cataract extraction Hx of colonoscopy Social History Smoking Status: Current every day smoker tobacco type: cigarettes substance use type: does not use ROS ROS ED Constitutional Constitutional ED: Reports body ache(s), malaise and sweats; Denies chills Eyes Eyes: Denies change in vision or diplopia ENT ENT ED: Denies rhinorrhea or sore throat Cardiovascular Cardiovascular: Denies chest pain or palpitations Respiratory/Chest Respiratory/Chest: Reports cough; Denies dyspnea Gastrointestinal Gastrointestinal: Reports nausea; Denies abdominal pain, diarrhea or vomiting Genitourinary Genitourinary ED: Denies dysuria or hematuria Musculoskeletal Musculoskeletal: Denies back pain or neck pain Integumentary Denies abscess or rash Neurologic Neurologic: Reports headache(s); Denies paresthesias or weakness Psychiatric Psychiatric: Denies anxiety or suicidal thoughts EXAM Physical Exam Const Vital Signs: 01/25/23 00:07 01/25/23 02:32 01/25/23 02:33 Temperature 96.9 F L Temperature Source Temporal Pulse Rate 94 87 Respiratory Rate 16 26 H Blood Pressure 159/82 H 151/73 H Blood Pressure Mean 107 99 Pulse Ox 95 86 94 Oxygen Delivery Method Room Air Room Air Nasal Cannula Oxygen Flow Rate (L/min) 2 Positive well nourished and well developed General Appearance ED: well developed and NAD HEENT Reports moist mucous membranes normocephalic and atraumatic Eyes PERRL and EOMs intact bilaterally Neck full ROM, no lymphadenopathy and supple Chest Wall inspection of chest normal and palpation of chest normal Resp normal respiratory effort and clear to auscultation bilaterally Cardio regular rate, regular rhythm and no murmurs Rate: Negative for tachycardic GI non-tender and non-distended Auscultation: normoactive bowel sounds Palpation: soft Back/Spine no CVA tenderness General Back: other FROM Extremity normal to inspection General Extremety ED: Negative for edema, pulses abnormal or tenderness General Extremity: Negative for edema or pulses abnormal Neuro oriented x3, CN's II-XII intact bilaterally and no sensory deficits noted Sensorium / Orientation: awake and alert Motor Exam: strength 5/5 throughout Psych mental status grossly normal Skin no rashes or lesions noted and no wounds MDM MDM MDM Narrative Medical decision making narrative: Workup obtained looking for infectious etiology, cardiac etiologies, metabolic such as blood sugar or electrolyte disturbance. Her symptoms are concerning for an illness/infection. Viral etiologies are certainly in the differential, she was already tested for COVID albeit early in negative and it is possible this is a false negative, but I added influenza and RSV and those are negative, chest x-ray 2 views shows what appears to be basilar infiltrates, she is not having chest discomfort or dyspnea or severe hypertension to suggest pulmonary etiology nor does she have edema in her legs or JVD clinically. She has a white blood count that is about 13, there is not a leftward shift, but we will treat these as bacterial until proven otherwise with antibiotics. Zosyn and Zithromax given in the ER, and while performing a workup her oxygen saturations were 86% on room air while resting in bed so she was placed on 2 L and due to this we will admit her to the hospital. She does not appear septic. Her vital signs are stable otherwise. EKG is normal on my interpretation and unchanged compared with her prior. Lab Data Attestation: I reviewed the patient's lab results. Labs: Laboratory Results - last 24 hr 01/25/23 01/25/23 00:52 01:39 WBC 12.9 H RBC 4.14 L Hgb 9.7 L Hct 33.1 L MCV 80.0 L MCH 23.4 L MCHC 29.3 L RDW Std Deviation 47.3 H RDW Coeff of Fadumo 16.4 H Plt Count 279 MPV 11.1 Immature Gran % (Auto) 0.500 Neut % (Auto) 50.9 Lymph % (Auto) 39.9 [place] % (Auto) 7.3 Eos % (Auto) 0.9 Baso % (Auto) 0.5 Absolute Neuts (auto) 6.6 Absolute Lymphs (auto) 5.14 H Nucleated RBC % 0 Differential Comment SCANNED Atypical Lymphocytes 2+ Sodium 138 Potassium 4.3 Chloride 106 Carbon Dioxide 28.0 Anion Gap 4 L BUN 24 H Creatinine 1.09 H Estim Creat Clear Calc 40.13 Est GFR (MDRD) Af Amer 63 Est GFR (MDRD) Non-Af 52 L BUN/Creatinine Ratio 22.0 H Glucose 198 H Calcium 9.8 Total Bilirubin 0.20 AST 19 ALT 19 Alkaline Phosphatase 109 Troponin I High Sens 8 Total Protein 7.1 Albumin 3.1 L Globulin 4.0 Albumin/Globulin Ratio 0.8 L Urine Color Yellow Urine Clarity Clear Urine pH 7.0 Ur Specific [place] 1.015 Urine Protein 30 H Urine Glucose (UA) 50 H Urine Ketones Negative Urine Occult Blood 10 H Urine Nitrite Negative Urine Bilirubin Negative Urine Urobilinogen Normal Ur Leukocyte Esterase 25 H Urine RBC 0 SEEN Urine WBC 0-5 SEEN Ur Squamous Epith Cells 0 SEEN Urine Bacteria 0 SEEN Urine Mucus 0 SEEN Radiography Diagnostic Testing: Clinical Impression(s) from Imaging Studies Chest X-Ray 01/25/23 00:50 IMPRESSION: Bilateral pulmonary opacities could represent infection or mild pulmonary edema/volume overload. Electronically Signed: Johnson Mesa MD at 2:15 EST , Rhythm Strip Rhythm Strip: Sinus Rhythm Rate: 90 Ectopy: None EKG Initial EKG: Attestation: I personally reviewed and interpreted this EKG as follows: Interpretation: Sinus Rhythm and No Acute Injury Pattern Prior EKG tracings: available for review Prior: Unchanged Management Discussion w/another healthcare provider: Hospitalist Discharge Plan Triage Chief Complaint: Nausea/Vomiting/Diarrhea ED Provider: Garrett De Guzman Dx/Rx/DC Orders Clinical Impression: Hypoxemia, Pneumonia of both lower lobes Prescriptions: No Action metformin [Glucophage] 1,000 MG tablet 1,000 mg PO BID Patient Comments: BLOOD SUGAR-Diabetic aspirin 81 MG tablet,chewable 81 mg PO DAILY@0800 Patient Comments: Blood Thinner gabapentin 100 MG capsule 200 mg PO TID Patient Comments: NERVE PAIN venlafaxine 75 MG tablet 75 mg PO BID Patient Comments: Antidepressant clonazepam 0.5 MG tablet 0.5 mg PO BID Patient Comments: ANXIETY omeprazole 20 MG capsule 40 mg PO DAILY Patient Comments: HEART BURN olanzapine [Zyprexa] 5 MG tablet 10 mg PO QHS Patient Comments: Depression albuterol sulfate [Ventolin HFA] 1 INHALER inhaler 1 puff inhalation Q4H PRN PRN (Reason: Wheezing) Patient Comments: Helps with breathing rosuvastatin [Crestor] 20 MG tablet 20 mg PO QHS cholecalciferol (vitamin D3) [Vitamin D3] 1,000 tablet 25 mcg PO DAILY Patient Comments: calcium carbonate 500 MG tablet 500 mg PO BID memantine 5 MG tablet 10 mg PO BID acetaminophen 500 MG tablet 1,000 mg PO Q8H PRN PRN (Reason: Pain) Qty: 20 0RF levetiracetam 500 mg Tablet 500 mg PO BID insulin glargine [Lantus Solostar U-100 Insulin] 100 unit/mL (3 mL) Insulin Pen 16 unit SUBCUT QPM insulin glargine [Lantus Solostar U-100 Insulin] 100 unit/mL (3 mL) Insulin Pen 10 unit SUBCUT DAILY magnesium oxide 400 mg magnesium Capsule 400 mg PO DAILY Humalog KwikPen Insulin 200 unit/mL (3 mL) Insulin Pen See Protocol SUBCUT TID Protocol: 4. Sliding Scale Insulin High-Med Dosing Condition: 150-199 mg/dl = 2 units Condition: 200-259 mg/dl = 4 units Condition: 260-324 mg/dl = 6 units Condition: 325-374 mg/dl = 8 units Condition: 375-409 mg/dl = 10 units Condition: 410-449 mg/dl = 11 units Condition: Greater than 449 call physician Protocol Text: - Use for Total Daily Dose of Insulin 56-80 units - Patient who are insulin resistant or septic HIGH MEDIUM DOSING ALGORITHM Rx Instructions: sliding scale fluticasone furoate-vilanterol [Breo Ellipta] 100-25 mcg/dose Blister With Device 1 inh INHALATION DAILY tramadol 50 mg tablet 50 mg PO TID PRN (Reason: pain) alendronate 70 mg tablet 70 mg PO FR fluticasone propionate 50 mcg/actuation spray,suspension 2 spray INTRANASAL DAILY Gemtesa 75 mg tablet 75 mg PO DAILY Systane Gel 0.3 % gel 1 drp EACH EYE Q6H guaifenesin [Mucus Relief ER] 1,200 mg tablet extended release 12hr 1,200 mg PO BID dicyclomine 10 mg capsule 20 mg PO TIDAC Primary Care Provider: Jh Hewitt Referrals: Jh Hewitt MD [Primary Care Provider] - Disposition [facility]
--- NOTE | 2023-01-25 00:50 | RAD_ITS ---
INDICATION: cough EXAMINATION: Frontal and lateral views of the chest. COMPARISON: Chest x-ray December 05, 2022. FINDINGS: Frontal and lateral views of the chest were obtained. The cardiac silhouette is not enlarged. Interstitial and hazy opacities throughout the lungs bilaterally, similar to the prior study. No pleural effusion or pneumothorax. RAD/Chest PA and Lateral IMPRESSION: Bilateral pulmonary opacities could represent infection or mild pulmonary edema/volume overload. Electronically Signed: Johnson Mesa MD at 2:15 EST ,
[2023-01-25] MEDS: Ondansetron 4 MG/2 ML Vial IV (01:10)
[2023-01-25] MEDS: 0.9% Normal Saline (1000mL) 1,000 ML 150 ML IV (01:10)
[2023-01-25 01:31] LABS: ALB/GLOB Ratio 0.8 RATIO (0.9-2.4); AST(SGOT) 19 U/L (15-37); Alanine Aminotransfer ALT/SGPT 19 U/L (13-56); Albumin, Serum 3.1 g/dL (3.2-5.0); Alkaline Phosphatase 109 U/L (45-117); Anion Gap 4 (5-15); BUN 24 mg/dL (7-18); Calcium,Total 9.8 mg/dL (8.5-10.1); Chloride 106 mmol/L (98-107); Creatinine, Serum 1.09 mg/dL (0.55-1.02); EST Glomerular Filtration Rate 52 mL/min (>60); Est Glom Filt Rate - Afr Amer 63 mL/min (>60); Estimated Creatinine Clearance 40.13 ml/min; Glucose 198 mg/dL (74-106); Potassium 4.3 mmol/L (3.5-5.1); Protein, Total 7.1 g/dL (6.4-8.2); Sodium Level 138 mmol/L (136-145); Troponin-I HS (w/2H Reflex) 8 pg/mL (3.0-54.0)
[2023-01-25 01:43] LABS: Bacteria 0 SEEN /hpf (None Seen); Mucous, Urine 0 SEEN /hpf (<or=2+); Red Blood Cells-Urine 0 SEEN /hpf (0-5); Squamous Epithelial Cells - UA 0 SEEN /hpf (5-10)
[2023-01-25 01:49] LABS: Color, Urine Yellow (Yellow); Glucose, Dipstick 50 mg/dl (Normal); Ketone-Dipstick Negative (Negative); Leukocyte Esterase-Dipstick 25 /ul (Negative); Nitrite-Dipstick Negative (Negative); Occult Blood-Urine 10 /ul (Negative); Protein-Dipstick 30 mg/dl (Negative); Specific Gravity, Urine 1.015 (1.002-1.030); Urine Bilirubin Dipstick Negative (Negative); Urine Clarity Clear (Clear); Urine Urobilinogen Normal (Normal)
[2023-01-25 01:51] LABS: Absolute Lymphocyte Count 5.14 X10^3/uL (0.83-4.51); Absolute Neutrophil Count 6.6 X10^3/uL (2.0-7.7); Basophil# 0.06 X10^3/uL; Basophil% 0.5 % (0-1); Eosinophil# 0.12 X10^3/uL; Eosinophils% 0.9 % (0-5); Hematocrit 33.1 % (37-47); Hemoglobin 9.7 g/dL (12.0-15.0); Lymphocyte # 5.14 X10^3/ul (0.83-4.51); Lymphocyte % 39.9 % (19-41); Mean Corp Hgb Conc 29.3 g/dL (32-36); Mean Corpuscular Hgb 23.4 pg (27.0-32.0); Mean Platelet Vol. 11.1 fl (6.2-12.0); Monocyte# 0.94 X10^3/uL; Monocyte% 7.3 % (0-10); NRBC Flagged by Analyzer 0 % (0-5); Neutrophil # 6.55 X10^3/uL (2.7-7.7); Neutrophil % 50.9 % (47-70); POSITIVE DIFFERENTIAL YES; POSITIVE MORPHOLOGY YES; Platelet Count 279 K/mm3 (150-450); RBC Distribution Width CV 16.4 % (11.6-14.6); RBC Distribution Width SD 47.3 fl (35.1-43.9); Red Blood Count 4.14 M/mm3 (4.2-5.4); White Blood Count 12.9 K/mm3 (4.4-11.0)
[2023-01-25 01:53] LABS: Differential Indicated SCAN CRITERIA MET
[2023-01-25 02:07] LABS: White Blood Cells 0-5 SEEN /hpf (0-5)
[2023-01-25 02:36] LABS: Atypical Lymphocyte 2+ %; Differential Comment SCANNED
[2023-01-25 03:06] LABS: Reflex Troponin-HS? (from REC) Y
[2023-01-25] MEDS: Acetaminophen 500 MG Tablet 1000 MG PO (03:19)
--- NOTE | 2023-01-25 03:35 | HP.PCM.HOS_ITS ---
HPI - General General Date of Admission: 01/25/23 Date of Service: 01/25/23 Chief Complaint: Fatigue, malaise, diaphoresis, cough, dyspnea, hypoxia. HPI Narrative The patient is a 77 y/o F w/ PMHx: CKD stage III unclear subtype per GFR trend ing, Hx CVA, HLD, Dementia unclear type with unclear behavioral disturbance history, Anxiety and Depression, Diabetes mellitus type II with chronic neuropathy, Chronic anemia, Hx VTE, Seizure disorder, Tobacco use, Allergic rhinitis, GERD who presents to the [facility] ED on 01/25/2023 with history of appr oximately 2 hours prior to ED arrival patient noted she woke with diaphoresis with mild frontal throbbing headache, myalgias, fatigue, malaise as well as mild nausea without emesis at that time with loose stools earlier in the day with COVID testing at her facility which was reportedly negative with nonproductive cough and admission that she does have coughing occasionally with food and liquid intake with no specific tested fever or chills but noted hypoxia upon their evaluation prompting referral to the ED for further assessment. Workup in the ED included T96.9, heart rate 94, BP 159/82, respiratory rate 16, 95% on room air however patient respiratory rate increased and patient desaturated to 86% on room air improving to 94% on 2 L nasal cannula, CBC with WBC 12.9, hemoglobin 9.7, MCV 80, platelet 279 with lymphocytosis, CMP with BUN/creatinine 24/1.09, glucose 198, troponin 8.0, urinalysis with no obvious evidence of UTI or marked dehydration, rapid influenza antigen and RSV antigen all negative, chest x-ray with bilateral pulmonary opacities concerning for infection, EKG was sinus rhythm with no acute evidence of ischemia. In the ED patient administered normal saline maintenance fluids, Tylenol 1000 mg p.o. x 1, Zithromax 500 mg IV x 1, Zofran 4 mg IV x 1 as well as IV Zosyn. [facility] Medical History Anxiety Arthritis Back pain Bladder disease Cardiology follow-up encounter COPD (chronic obstructive pulmonary disease) Dementia Depression Dietary restriction DVT (deep venous thrombosis) Gastric reflux High cholesterol History of echocardiogram History of edema History of hypotension History of pain when walking History of steroid therapy History of stress test Hx of diabetic neuropathy Injury of back Insulin dependent diabetes mellitus Leg cramps Loss of consciousness Low iron Restless legs Seizures Shortness of breath on exertion Smoker Stroke/cerebrovascular accident Syncope Uses wheelchair Wears dentures Wears glasses Home Medications aspirin 81 mg chewable tablet 81 mg PO DAILY@0800 heart health 03/09/13 [History Last Taken 12/19/22] gabapentin 100 mg capsule 200 mg PO TID neuropathy 03/09/13 [History Last Taken 12/19/22] metformin 1,000 mg tablet (Glucophage) 1,000 mg PO BID diabetes 03/09/13 [Hi story Last Taken 12/19/22] clonazepam 0.5 mg tablet 0.5 mg PO BID 10/19/13 [History Last Taken 12/19/22] omeprazole 20 mg capsule,delayed release 40 mg PO DAILY gerd 10/19/13 [History Last Taken 12/19/22] venlafaxine 75 mg tablet 75 mg PO BID depression 10/19/13 [History Last Taken 12/19/22] albuterol sulfate 90 mcg/actuation aerosol inhaler (Ventolin HFA) 1 puff inhalation Q4H PRN PRN Wheezing 01/03/14 [History Last Taken 05/14/14] olanzapine 5 mg tablet (Zyprexa) 10 mg PO QHS depression 01/03/14 [History Last Taken 12/18/22] cholecalciferol (vitamin D3) 25 mcg (1,000 unit) tablet (Vitamin D3) 25 mcg PO DAILY supplement 01/06/17 [History Last Taken 12/19/22] rosuvastatin 20 mg tablet (Crestor) 20 mg PO QHS cholesterol 01/06/17 [History Last Taken 12/18/22] calcium carbonate 500 mg calcium (1,250 mg) tablet 500 mg PO BID Indigestion 11/16/18 [History Last Taken 12/19/22] memantine 5 mg tablet 10 mg PO BID 11/16/18 [History Last Taken 12/19/22] acetaminophen 500 mg tablet 1,000 mg (2 x 500 mg) PO Q8H PRN PRN Pain #20 tabs 11/18/18 [Rx Last Taken 12/18/22] insulin glargine 100 unit/mL (3 mL) subcutaneous pen (Lantus Solostar U-100 Insulin) 10 unit subcut DAILY 10/22/20 [History Last Taken 12/19/22] insulin glargine 100 unit/mL (3 mL) subcutaneous pen (Lantus Solostar U-100 Insulin) 16 unit subcut QPM 10/22/20 [History Last Taken 12/18/22] insulin lispro 200 unit/mL (3 mL) subcutaneous pen (Humalog KwikPen U-200 Insulin) See Protocol subcut TID sliding scale 10/22/20 [History Last Taken 12/19/22] levetiracetam 500 mg tablet 500 mg PO BID 10/22/20 [History Last Taken 12/19/22] magnesium oxide 400 mg PO DAILY 10/22/20 [History Last Taken 12/19/22] artificial tears(hypromellose) 0.3 % eye gel (Systane Gel) 1 drp EACH EYE Q6H 12/05/22 [History Last Taken 12/19/22] dicyclomine 10 mg capsule 20 mg PO TIDAC Abdominal Pain 12/05/22 [History Last Taken 12/19/22] fluticasone propionate 50 mcg/actuation nasal spray,suspension 2 spray intranasal DAILY 12/05/22 [History Last Taken 12/19/22] guaifenesin 1,200 mg tablet, extended release 12 hr (Mucus Relief ER) 1,200 mg PO BID 12/05/22 [History Last Taken 12/19/22] vibegron 75 mg tablet (Gemtesa) 75 mg PO DAILY 12/05/22 [History Last Taken 12/19/22] tramadol 50 mg tablet 50 mg PO TID PRN pain 12/19/22 [History Last Taken ] Allergy/AdvReac Type Severity Reaction Status Date / Time atorvastatin calcium Allergy Unknown Verified 12/19/22 10:18 [From Lipitor] calcium Allergy Unknown Verified 12/19/22 10:18 ibuprofen [From Motrin] Allergy Unknown Verified 12/19/22 10:18 Family History (Updated 01/25/23 @ 03:[address] Marleni Handy MD) Mother Heart disease Hypertension Myocardial infarction Diabetes Father Heart disease Hypertension Myocardial infarction Surgical History History of angioplasty of peripheral vessel History of esophagogastroduodenoscopy (EGD) Hx laparoscopic cholecystectomy Hx of breast biopsy Hx of cataract extraction Hx of colonoscopy Social History (Updated 01/25/23 @ 03:[address] Marleni Handy MD) household members: none housing: assisted living facility Smoking Status: Current every day smoker tobacco type: cigarettes alcohol intake: never substance use type: does not use ROS ROS Narrative Admission Review of Systems: CONSTITUTIONAL: No weight loss, fever, chills, + weakness or fatigue. HEENT: Eyes: No visual loss, blurred vision, double vision or yellow sclerae. Ears, Nose, Throat: No hearing loss, sneezing, congestion, runny nose or sore throat. SKIN: No rash or itching, lesions, wounds. CARDIOVASCULAR: No chest pain, chest pressure or chest discomfort, palpitations, edema, orthopnea, syncopal events. RESPIRATORY: + Shortness of breath, cough without marked sputum. No wheezing, hemoptysis. GASTROINTESTINAL: + Nausea, loose stool, No anorexia, vomiting, abdominal pain, melena, BRBPR. GENITOURINARY: No dysuria, frequency, urgency or retention. NEUROLOGICAL: + Hx CVA with R sided weakness/speech deficits. No headache, dizziness, syncope, paralysis, ataxia, numbness or tingling in the extremities, change in bowel or bladder control, seizure. MUSCULOSKELETAL: + muscle, back pain, joint pain or stiffness. HEMATOLOGIC: + anemia, easy/bruising. LYMPHATICS: No enlarged nodes. No history of splenectomy. PSYCHIATRIC: + History of anxiety and depression. ENDOCRINOLOGIC: + Reports of sweating, cold or heat intolerance. No polyuria or polydipsia. ALLERGIES: No history of asthma, hives, eczema or rhinitis. Vital Signs Vital Signs Vital Signs: 01/25/23 00:07 01/25/23 02:32 01/25/23 02:33 Temperature 96.9 F L Temperature Source Temporal Pulse Rate 94 87 Respiratory Rate 16 26 H Blood Pressure 159/82 H 151/73 H Blood Pressure Mean 107 99 Pulse Ox 95 86 94 Oxygen Delivery Method Room Air Room Air Nasal Cannula Oxygen Flow Rate (L/min) 2 01/25/23 03:30 01/25/23 03:30 Temperature Temperature Source Pulse Rate 86 Respiratory Rate 28 H Blood Pressure 155/80 H Blood Pressure Mean 105 Pulse Ox 95 Oxygen Delivery Method Nasal Cannula Oxygen Flow Rate (L/min) 2 Weight Weight: 199 lb 4.766 oz Body Mass Index (BMI) 33.1 Physical Exam Narrative Physical Examination: General: Awake, alert, oriented x 3 and cooperative, seated upright in the ED bed, fatigued but no acute distress. Skin: Normal color, normal turgor, no icterus, no cyanosis. HEENT: AT/NC, EOMI, PERRLA, mildly dry MM, no carotid bruits or JVD noted. Lungs: Diminished, greater bases, mildly increased respiratory rate but no distr ess, despite chest x-ray currently no appreciated rales, ronchi or wheezing. Heart: Regular rate and rhythm; no gallop, rub audible. Abdomen: Soft, obese, NTTP, ND, mildly hyperactive BS, no HSM. Extremities: No cyanosis, clubbing, or edema. Neurological: Patient awake, alert, oriented as noted, cognitive function intact but patient has suffered from previous stroke with chronic speech deficits; p upils equally reactive to light and accommodation, cranial nerves grossly normal, moving all 4 extremities with chronic mild right hand and foot subjectively reported weakness/spasms, strength currently moderately to severely globally decreased secondary to acute presentation complicated by underlying comorbidities. Psychiatric: Affect appears flat, fatigued, no acute evidence of depressive or anxiety feelings but does have underlying history. Results Lab / Micro Data 01/25/23 00:52 01/25/23 00:52 Labs: Laboratory Results - last 24 hr 01/25/23 00:52: WBC 12.9 H, RBC 4.14 L, Hgb 9.7 L, Hct 33.1 L, MCV 80.0 L, MCH 23.4 L, MCHC 29.3 L, RDW Std Deviation 47.3 H, RDW Coeff of Fadumo 16.4 H, Plt Count 279, MPV 11.1, Immature Gran % (Auto) 0.500, Neut % (Auto) 50.9, Lymph % (Auto) 39.9, Mccracken % (Auto) 7.3, Eos % (Auto) 0.9, Baso % (Auto) 0.5, Absolute Neuts (auto) 6.6, Absolute Lymphs (auto) 5.14 H, Nucleated RBC % 0, Differential Comment SCANNED, Atypical Lymphocytes 2+, Sodium 138, Potassium 4.3, Chloride 106, Carbon Dioxide 28.0, Anion Gap 4 L, BUN 24 H, Creatinine 1.09 H, Estim Creat Clear Calc 40.13, Est GFR (MDRD) Af Amer 63, Est GFR (MDRD) Non-Af 52 L, BUN/Creatinine Ratio 22.0 H, Glucose 198 H, Calcium 9.8, Total Bilirubin 0.20, AST 19, ALT 19, Alkaline Phosphatase 109, Troponin I High Sens 8, Total Protein 7.1, Albumin 3.1 L, Globulin 4.0, Albumin/Globulin Ratio 0.8 L 01/25/23 01:39: Urine Color Yellow, Urine Clarity Clear, Urine pH 7.0, Ur Specific Bristow 1.015, Urine Protein 30 H, Urine Glucose (UA) 50 H, Urine Ketones Negative, Urine Occult Blood 10 H, Urine Nitrite Negative, Urine Bilirubin Negative, Urine Urobilinogen Normal, Ur Leukocyte Esterase 25 H, Urine RBC 0 SEEN, Urine WBC 0-5 SEEN, Ur Squamous Epith Cells 0 SEEN, Urine Bacteria 0 SEEN, Urine Mucus 0 SEEN Micro: Microbiology 01/25/23 00:45 Interface Orders Rapid RSV (DFA) - Final 01/25/23 00:45 Mucosa - Nasopharyngeal Influenza Types A,B Direct FA (ANAMARIA) - Final Rhythm Strip Rhythm Strip: Sinus Rhythm Rate: 90 Ectopy: None Imagaing Radiology Impression Chest X-Ray 01/25/23 00:50 IMPRESSION: Bilateral pulmonary opacities could represent infection or mild pulmonary edema/volume overload. Electronically Signed: Johnson Mesa MD at 2:15 EST Reading Location ID and State: [address] [place] [address] Tel , Service support , Assessment & Plan Assessment/Plan (1) Pneumonia of both lower lobes: (2) Hypoxemia: PLAN: Plan The patient is a 77 y/o F w/ PMHx: CKD stage III unclear subtype per GFR trending, Hx CVA, HLD, Dementia unclear type with unclear behavioral disturbance history, Anxiety and Depression, Diabetes mellitus type II with chronic neuropathy, Chronic anemia, Hx VTE, Seizure disorder, Tobacco use, Allergic rhinitis, GERD who presents to the [facility] ED on 01/25/2023 with history of approximately 2 hours prior to ED arrival patient noted she woke with diaphoresis with mild frontal throbbing headache, myalgias, fatigue, malaise as well as mild nausea without emesis at that time with loose stools earlier in the day with COVID testing at her facility which was reportedly negative with nonproductive cough and admission that she does have coughing occasionally with food and liquid intake with no specific tested fever or chills but noted hypoxia upon their evaluation prompting referral to the ED for further assessment. #1. Bilateral pneumonia with acute hypoxia, do suspect possibly a component of aspiration given prior history and patient does admit to coughing when she eats food/drink with concurrent reported history of nausea//loose stool x 1: Will admit to MS, maintain on oxygen with wean as tolerated to room air, continue ATC budesonide, PRN albuterol, maintained on IV Zosyn, IV azithromycin with MRSA screen request, HOB, IS parameters w/ pending sputum cultures, full respiratory viral panel, unclear if facility was rapid or PCR COVID testing thus to be cautious will repeat as records not sent with her and urine antigens. To be cautious if recurrent diarrhea will obtain enteric and C. difficile. PT/OT/ST/CM consultation for discharge planning. #2. Elevated BP without HTN diagnosis: Patient with elevated BP in the ED without previous diagnosis even through perusal of previous records, potentially related with her acute presentation, continue to closely monitor and if remains elevated may necessitate oral regimen addition, as needed IV hydralazine in the interim. #3. Diabetes mellitus type II with chronic neuropathy: Hold oral home regimen, continue home insulin regimen, ADA diet however ST consultation requested as patient does admit to coughing when she eats, accu checks w/ ISS, continue chronic gabapentin regimen. #4. Dementia, unclear type with unclear behavioral disturbance history: We will continue patient home memantine home regimen, complicates presentation, maintain on fall and aspiration precautions, PT/OT consulted for discharge planning. #5. Anxiety and depression: We will continue patient on venlafaxine and Zyprexa regimen as well as low-dose twice daily clonazepam regimen.. #6. History CVA: Patient with history of remote stroke with per her report right hand and right foot weakness still and sometimes spasms but also suspect some chronic speech impairment associated, will continue patient aspirin, statin, not on hypertensive regimen, continue to monitor with addition of regimen if appropriate, continue diabetic treatment with at home insulin therapy as noted. #7. History of VTE: Patient with previous history of DVT, not currently chronically anticoagulated note but does have significantly documented recurrent fall history. #8. Hyperlipidemia: We will continue patient on statin therapy. #9. Chronic anemia, MCV currently microcytic however normally MCV is normocytic in range per record trending: Admission CBC with hemoglobin 9.7, MCV 80.0, baseline hemoglobin appears primarily 9-10, stable, continue to trend with further evaluation outpatient. #10. Chronic Kidney Disease Stage III, unclear subtype per GFR trending: Admission BUN/Cr 24/1.09, baseline renal function 1.0-1.3, repeat BMP in AM. #11. Tobacco Abuse: Patient with ongoing approximate 7 cigarettes/day, encouraged cessation, inpatient consultation per RT, NR if desired. Patient started smoking when she was approximately 30 years old and increased in her lifetime up to 1 pack/day but is trended down over the years to her current 1/4 pack/day. #12. Seizure disorder: We will continue patient home levetiracetam regimen. #13. Allergic rhinitis: We will continue patient on fluticasone regimen. #14. GERD: We will continue patient on PPI. #15. DVT prophylaxis: Lovenox. #16. CODE status: Patient MELLISSA is her son and living will is currently in place. Discussed CODE status at length including difference between FULL code, DNR-CCA and DNR-CC status. Following discussions about the differences in these status, requested DNR-CCA, no intubation status. Advanced Care Planning Face to Face Time: 16 minutes. Charges/Coding Visit Charges Inpatient E&M: 69224 Init Hosp L3 Procedures Hospitalists Procedures: 95508 Advncd Care Plan 30 Min
[2023-01-25 03:50] LABS: Troponin-I HS 9 pg/mL (3.0-54.0)
[2023-01-25] MEDS: Piperacil/Tazobactam 4.5 GM in 0.9% Normal Saline (100mL MB+) 100 ML IV (03:59)
[2023-01-25] MEDS: 0.9% Normal Saline (1000mL) 1,000 ML 100 ML IV (05:02)
[2023-01-25] MEDS: Azithromycin 500 MG in Dextrose 5%-Water (250mL Bag) 250 ML 250 MG IV ×2 (05:02→21:10)
[2023-01-25 05:21] LABS: ALB/GLOB Ratio 0.9 RATIO (0.9-2.4); AST(SGOT) 16 U/L (15-37); Alanine Aminotransfer ALT/SGPT 18 U/L (13-56); Alkaline Phosphatase 100 U/L (45-117); Anion Gap 4 (5-15); BUN 22 mg/dL (7-18); BUN/Creat Ratio 23.9 RATIO (10-20); Calcium,Total 8.7 mg/dL (8.5-10.1); Chloride 108 mmol/L (98-107); Creatinine, Serum 0.92 mg/dL (0.55-1.02); EST Glomerular Filtration Rate 63 mL/min (>60); Est Glom Filt Rate - Afr Amer 76 mL/min (>60); Estimated Creatinine Clearance 43.71 ml/min; Globulin 3.5 g/dL (2.2-4.2); Glucose 200 mg/dL (74-106); Potassium 4.4 mmol/L (3.5-5.1); Protein, Total 6.5 g/dL (6.4-8.2); Sodium Level 141 mmol/L (136-145)
[2023-01-25 05:34] LABS: Absolute Lymphocyte Count 4.91 X10^3/uL (0.83-4.51); Absolute Neutrophil Count 5.7 X10^3/uL (2.0-7.7); Basophil# 0.06 X10^3/uL; Basophil% 0.5 % (0-1); Eosinophil# 0.13 X10^3/uL; Eosinophils% 1.1 % (0-5); Hemoglobin 9.1 g/dL (12.0-15.0); Lymphocyte # 4.91 X10^3/ul (0.83-4.51); Lymphocyte % 42.5 % (19-41); Mean Corp Hgb Conc 29.4 g/dL (32-36); Mean Corpuscular Hgb 23.8 pg (27.0-32.0); Mean Corpuscular Volume 80.9 fL (81-99); Mean Platelet Vol. 10.3 fl (6.2-12.0); Monocyte# 0.71 X10^3/uL; Monocyte% 6.1 % (0-10); NRBC Flagged by Analyzer 0 % (0-5); Neutrophil # 5.72 X10^3/uL (2.7-7.7); Neutrophil % 49.6 % (47-70); POSITIVE MORPHOLOGY YES; Platelet Count 231 K/mm3 (150-450); RBC Distribution Width CV 16.3 % (11.6-14.6); RBC Distribution Width SD 47.8 fl (35.1-43.9); Red Blood Count 3.83 M/mm3 (4.2-5.4); White Blood Count 11.6 K/mm3 (4.4-11.0)
[2023-01-25 06:17] LABS: Differential Indicated SCAN CRITERIA MET
[2023-01-25] MEDS: Gabapentin 100 MG Capsule 200 MG PO ×3 (06:45→21:10)
[2023-01-25] MEDS: Dicyclomine 10 MG Capsule 20 MG PO ×3 (06:45→16:17)
[2023-01-25] MEDS: Insulin Lispro 100 UNIT/ML INSULN.PEN SC ×4 (06:48→20:53)
[2023-01-25 07:04] LABS: Bedside Glucose 235 mg/dL (74-106)
[2023-01-25] MEDS: Budesonide Respules 0.5 MG/2 ML AMPUL.NEB. INHALATION ×2 (07:56→20:51)
[2023-01-25 08:33] LABS: Differential Comment SCANNED; Reactive Lymphocyte 1+
[2023-01-25 09:00] LABS: M R Staph aureus DNA By PCR Negative (Negative); Probe Check PASS; Specimen Processing Control PASS
[2023-01-25] MEDS: Aspirin 81 MG TAB.CHEW PO (09:37)
[2023-01-25] MEDS: Magnesium Chloride 64 MG Delay Rel.Tablet 128 MG PO (09:37)
[2023-01-25] MEDS: levETIRAcetam 500 MG Tablet PO ×2 (09:37→20:59)
[2023-01-25] MEDS: Memantine Hydrochloride 10 MG Tablet PO ×2 (09:38→20:59)
[2023-01-25] MEDS: Venlafaxine HCl 75 MG Tablet PO ×2 (09:38→21:01)
[2023-01-25] MEDS: Pantoprazole Sodium 40 MG Tablet PO (09:38)
[2023-01-25] MEDS: guaiFENesin 1,200 MG Tablet 1200 MG PO ×2 (09:38→21:01)
[2023-01-25] MEDS: Calcium (Elemental) 500 MG Tablet PO ×2 (09:38→20:59)
[2023-01-25] MEDS: Vibegron 75 MG TABLET PO (09:38)
[2023-01-25] MEDS: Enoxaparin 40 MG/0.4 ML Syringe SC (09:38)
[2023-01-25] MEDS: Insulin Glargine-YFGN 100 UNIT/ML Pen 10 UNIT SC (09:39)
[2023-01-25] MEDS: Fluticasone 0.05% 1 SPRAY NASAL.SRY 2 SPRAY NASAL (09:39)
[2023-01-25] MEDS: clonazePAM 0.5 MG Tablet PO ×2 (09:45→20:59)
[2023-01-25] MEDS: Glycerin/Hypromellose/PEG400 15 ml Bottle 1 DRP EACH EYE (11:50)
[2023-01-25 12:07] LABS: Bedside Glucose 206 mg/dL (74-106)
[2023-01-25] MEDS: Piperacil/Tazobactam 3.375 GM in 0.9% Normal Saline (50mL MB+) 50 ML IV ×2 (13:11→21:11)
[2023-01-25] MEDS: traMADol 50 MG Tablet PO (13:12)
[2023-01-25] MEDS: Menthol/Lanolin/Calamine/Znox 113 GM Tube 1 APPLIC TOPICAL ×2 (16:21→20:53)
[2023-01-25 16:45] LABS: Bedside Glucose 161 mg/dL (74-106)
--- NOTE | 2023-01-25 18:14 | CASEMGMT ---
Social Work Received notice from RN ANAHY, that patient is from [facility]. Met with patient in room, but before entering the room patient's daughter Ami was also entering the room. Ami shared with this specifications writer, outside of patient's room, that patient's children are unhappy with the communications have been receiving from the assisted living. The children did not know until today of patient's transfer to the hospital. Ami reports patient's son Scott is the [facility], lives in [place], so Ami is the most local and able to check on the patient. Upon meeting with patient in room, introducing to self and social work role, patient shared she has been at [facility] since November 2021. Patient reports to like this facility, and wants to return there if able. Let patient know that would be sending updates to [facility], to ensure the AL can meet patient's needs. Patient does use a walker to ambulate. Does not use O2 at the AL. Sent updates via [facility] to [facility]. Will send PT/OT evals when available. Also inquired with [facility] whether the facility has POAHC and LW in file. If so, will have paperwork sent over the [facility] for patient's EMR. Plan: Anticipate return to [facility]. Need to sent PT/OT evals to the AL, to ensure AL is able to meet patient's needs. -ANNELISE Barroso
[2023-01-25] MEDS: Insulin Glargine-YFGN 100 UNIT/ML Pen 16 UNIT SC (20:52)
[2023-01-25] MEDS: Rosuvastatin 20 MG Tablet PO (21:09)
[2023-01-25] MEDS: OLANZapine 2.5 MG Tablet 10 MG PO (21:10)
[2023-01-25 21:47] LABS: Bedside Glucose 175 mg/dL (74-106)
[2023-01-26] VITALS (7 sets, daily range): BP systolic 109–151; BP diastolic 57–76; PULSE 76–95; RESP 16–18; TEMP 36.3–36.8; O2SAT 91–98; BMI 34.2
[2023-01-26] MEDS: Gabapentin 100 MG Capsule 200 MG PO ×3 (06:04→21:37)
[2023-01-26] MEDS: Piperacil/Tazobactam 3.375 GM in 0.9% Normal Saline (50mL MB+) 50 ML IV ×3 (06:05→22:49)
[2023-01-26] MEDS: Budesonide Respules 0.5 MG/2 ML AMPUL.NEB. INHALATION (07:11)
[2023-01-26] MEDS: Aspirin 81 MG TAB.CHEW PO (09:07)
[2023-01-26] MEDS: Dicyclomine 10 MG Capsule 20 MG PO ×2 (09:07→16:09)
[2023-01-26] MEDS: levETIRAcetam 500 MG Tablet PO ×2 (09:08→21:37)
[2023-01-26] MEDS: Enoxaparin 40 MG/0.4 ML Syringe SC (09:08)
[2023-01-26] MEDS: guaiFENesin 1,200 MG Tablet 1200 MG PO ×2 (09:08→21:23)
[2023-01-26] MEDS: Venlafaxine HCl 75 MG Tablet PO ×2 (09:08→21:21)
[2023-01-26] MEDS: Vibegron 75 MG TABLET PO (09:08)
[2023-01-26] MEDS: Magnesium Chloride 64 MG Delay Rel.Tablet 128 MG PO (09:08)
[2023-01-26] MEDS: Insulin Glargine-YFGN 100 UNIT/ML Pen 10 UNIT SC (09:09)
[2023-01-26] MEDS: Pantoprazole Sodium 40 MG Tablet PO (09:09)
[2023-01-26] MEDS: Insulin Lispro 100 UNIT/ML INSULN.PEN SC ×3 (09:09→21:23)
[2023-01-26] MEDS: Memantine Hydrochloride 10 MG Tablet PO ×2 (09:09→21:24)
[2023-01-26] MEDS: Calcium (Elemental) 500 MG Tablet PO ×2 (09:09→21:24)
[2023-01-26] MEDS: Fluticasone 0.05% 1 SPRAY NASAL.SRY 2 SPRAY NASAL (09:10)
--- NOTE | 2023-01-26 09:36 | PN.HOSP_ITS ---
Subjective Subjective Doing well, no issues overnight. She is currently off of oxygen however will have an ambulatory pulse ox done today Objective Data Objective Data Vital Signs: Vital Signs Temp Pulse Resp BP Pulse Ox O2 Del Method O2 Flow Rate 97.3 F L 95 16 149/71 H 93 Room Air 2 01/26/23 09:02 01/26/23 09:02 01/26/23 09:02 01/26/23 09:02 01/26/23 09:02 01/26/23 09:02 01/26/23 04:00 Oxygen Flow Rate (L/min) 2 Oxygen Delivery Method Room Air Weight: 192 lb 14.472 oz Body Mass Index (BMI) 34.2 Intake & Output: Intake and Output for Last 24 Hours 01/25/23 01/26/23 01/27/23 03:59 03:59 03:59 Intake Total 417.5 / 417.5 1618.33 / 1618.33 Output Total 1050 / 1050 1200 / 1200 Balance 417.5 / 417.5 568.33 / 568.33 -1200 / -1200 Lab / Micro Data 01/25/23 04:50 01/25/23 04:50 Labs: Laboratory Results - last 24 hr 01/25/23 11:47: POC Glucose 206 H 01/25/23 16:16: POC Glucose 161 H 01/25/23 20:50: POC Glucose 175 H Micro: Microbiology 01/25/23 04:50 Mucosa - Nasopharyngeal Coronavirus COVID-19 PCR - Final 01/25/23 01:39 Urine Catheter - Catheter Legionella Antigen - Final 01/25/23 01:39 Urine Catheter - Catheter Streptococcus pneumoniae Antigen (M - Final 01/25/23 00:45 Interface Orders Rapid RSV (DFA) - Final 01/25/23 00:45 Mucosa - Nasopharyngeal Influenza Types A,B Direct FA (ANAMARIA) - Final Rhythm Strip Rhythm Strip: Sinus Rhythm Rate: 90 Ectopy: None Physical Exam Narrative General: Alert, Oriented x3, Cooperative, No apparent distress HEENT: Atraumatic, PERRLA, EOMI, Normocephalic Oral: Moist Mucosa Neck: Supple, No JVD Lungs: Diminished, Normal air movement, No rhonchi, No wheeze, No rales Cardiovascular: Regular rate, Regular Rhythm, Normal S1, Normal S2, No murmurs Abdomen: Soft, Non Tender, Non-Distended, No Hepato-splenomegaly Extremities: No edema, Capillary Refill Less than 3 Seconds Skin: No rashes, No breakdown Musculoskeletal: No Tenderness to Palpation of Joints or Extremities Neurological: Moves all extremities, Sensory exam intact to light touch and pain Psych/Mental Status: Normal Affect, Appropriate Assessment & Plan Assessment/Plan (1) Pneumonia of both lower lobes: (2) Hypoxemia: PLAN: Plan #1. Bilateral pneumonia with acute hypoxia, do suspect possibly a component of aspiration given prior history and patient does admit to coughing when she eats food/drink with concurrent reported history of nausea//loose stool x 1: Will admit to MS, maintain on oxygen with wean as tolerated to room air, continue ATC budesonide, PRN albuterol, maintained on IV Zosyn, IV azithromycin with MRSA screen request, HOB, IS parameters w/ pending sputum cultures, full respiratory viral panel, unclear if facility was rapid or PCR COVID testing thus to be cautious will repeat as records not sent with her and urine antigens. To be cautious if recurrent diarrhea will obtain enteric and C. difficile. PT/OT/ST/CM consultation for discharge planning. 01/26/2023: Continue with antibiotics, will obtain an ambulatory pulse ox today for discharge planning #2. Elevated BP without HTN diagnosis: Patient with elevated BP in the ED without previous diagnosis even through perusal of previous records, potentially related with her acute presentation, continue to closely monitor and if remains elevated may necessitate oral regimen addition, as needed IV hydralazine in the interim. #3. Diabetes mellitus type II with chronic neuropathy: Hold oral home regimen, continue home insulin regimen, ADA diet however ST consultation requested as patient does admit to coughing when she eats, accu checks w/ ISS, continue wharf tender alla gabapentin regimen. #4. Dementia, unclear type with unclear behavioral disturbance history: We will continue patient home memantine home regimen, complicates presentation, maintain on fall and aspiration precautions, PT/OT consulted for discharge planning. #5. Anxiety and depression: We will continue patient on venlafaxine and Zyprexa regimen as well as low-dose twice daily clonazepam regimen.. #6. History CVA: Patient with history of remote stroke with per her report right hand and right foot weakness still and sometimes spasms but also suspect some chronic speech impairment associated, will continue patient aspirin, statin, not on hypertensive regimen, continue to monitor with addition of regimen if appropriate, continue diabetic treatment with at home insulin therapy as noted. #7. History of VTE: Patient with previous history of DVT, not currently chronically anticoagulated note but does have significantly documented recurrent fall history. #8. Hyperlipidemia: We will continue patient on statin therapy. #9. Chronic anemia, MCV currently microcytic however normally MCV is normocytic in range per record trending: Admission CBC with hemoglobin 9.7, MCV 80.0, baseline hemoglobin appears primarily 9-10, stable, continue to trend with further evaluation outpatient. #10. Chronic Kidney Disease Stage III, unclear subtype per GFR trending: Admission BUN/Cr 24/1.09, baseline renal function 1.0-1.3, repeat BMP in AM. #11. Tobacco Abuse: Patient with ongoing approximate 7 cigarettes/day, encouraged cessation, inpatient consultation per RT, NR if desired. Patient started smoking when she was approximately 30 years old and increased in her lifetime up to 1 pack/day but is trended down over the years to her current 1/4 pack/day. #12. Seizure disorder: We will continue patient home levetiracetam regimen. #13. Allergic rhinitis: We will continue patient on fluticasone regimen. #14. GERD: We will continue patient on PPI. DVT: Lovenox
[2023-01-26] MEDS: clonazePAM 0.5 MG Tablet PO ×2 (10:46→21:36)
--- NOTE | 2023-01-26 13:21 | CASEMGMT ---
Discharge Planning Updates faxed to [facility]. Hansa Lindsey, Discharge Planning Asst.
[2023-01-26] MEDS: Menthol/Lanolin/Calamine/Znox 113 GM Tube 1 APPLIC TOPICAL ×2 (14:22→21:20)
[2023-01-26] MEDS: CARBOXYMETHYLCELLULOSE SODIUM 1 DRP DROPS OPHTHALMIC ×3 (14:23→22:26)
[2023-01-26 17:00] LABS: Bedside Glucose 324 mg/dL (74-106)
--- NOTE | 2023-01-26 18:00 | CASEMGMT ---
Social work -Advance Directive Validation/Discharge Planning This public relations writer called [facility] where patient is a resident and spoke with Ophelia.? This public relations writer inquired whether the facility had any type of power of director of marketing for healthcare on file or living will.? Ophelia faxed to this public relations writer the power of director of marketing healthcare.? Noted that this document is a general power of director of marketing though there is a section indicating personal care.? In the personal care section it does indicate the power of director of marketing can consent to any type of hospital treatment or nursing facility treatment that the patient may need.? This power of director of marketing placed on chart. Called patient's son Scott at [phone].? Son reports belief that patient has a specific power of director of marketing for healthcare and that there are [address].? Son will be in to visit patient on 01/27/2023 and can bring the documents and at that time.? Son reports belief that patient will be ready for discharge on 1220 and that can provide patient discharged back to [facility]. This public relations writer did review patient's chart and noted that patient did well with PT and OT, with no indication for additional skilled skilled therapy.? However did review speech therapy notes and unclear whether this will be needed at discharge or whether will be DC'd before patient is discharged from the hospital. Plan: Son to bring in additional advance directive documents for review and placement in chart.? Patient will return back to assisted living.? Monitor for need for outpatient versus home health speech therapy. -PAUL Barroso, HEALTH TECHNICAL WRITER
[2023-01-26] MEDS: Insulin Glargine-YFGN 100 UNIT/ML Pen 16 UNIT SC (21:19)
[2023-01-26] MEDS: OLANZapine 2.5 MG Tablet 10 MG PO (21:25)
[2023-01-26] MEDS: MELATONIN 3 MG TABLET PO (22:19)
[2023-01-26] MEDS: Acetaminophen 325 MG Tablet 650 MG PO (22:19)
[2023-01-26] MEDS: Azithromycin 500 MG in Dextrose 5%-Water (250mL Bag) 250 ML 250 MG IV (22:24)
[2023-01-26] MEDS: Rosuvastatin 20 MG Tablet PO (22:49)
[2023-01-26 23:02] LABS: Bedside Glucose 256 mg/dL (74-106)
[2023-01-27] VITALS (7 sets, daily range): BP systolic 103–165; BP diastolic 58–75; PULSE 73–87; RESP 16–18; TEMP 36.7–36.8; O2SAT 92–96; BMI 33.7
[2023-01-27] MEDS: Gabapentin 100 MG Capsule 200 MG PO ×2 (05:48→14:15)
[2023-01-27] MEDS: Piperacil/Tazobactam 3.375 GM in 0.9% Normal Saline (50mL MB+) 50 ML IV ×2 (05:48→14:09)
[2023-01-27] MEDS: CARBOXYMETHYLCELLULOSE SODIUM 1 DRP DROPS OPHTHALMIC ×2 (05:48→11:28)
[2023-01-27] MEDS: Dicyclomine 10 MG Capsule 20 MG PO ×2 (05:51→11:28)
[2023-01-27] MEDS: Insulin Lispro 100 UNIT/ML INSULN.PEN SC ×2 (05:51→11:27)
[2023-01-27 06:31] LABS: Bedside Glucose 229 mg/dL (74-106)
[2023-01-27 06:41] LABS: Absolute Neutrophil Count 4.6 X10^3/uL (2.0-7.7); Basophil# 0.05 X10^3/uL; Basophil% 0.5 % (0-1); Eosinophil# 0.18 X10^3/uL; Eosinophils% 1.9 % (0-5); Hematocrit 31.8 % (37-47); Hemoglobin 9.5 g/dL (12.0-15.0); Lymphocyte % 41.8 % (19-41); Mean Corp Hgb Conc 29.9 g/dL (32-36); Mean Corpuscular Hgb 23.8 pg (27.0-32.0); Mean Corpuscular Volume 79.7 fL (81-99); Mean Platelet Vol. 10.7 fl (6.2-12.0); Monocyte# 0.61 X10^3/uL; Monocyte% 6.5 % (0-10); NRBC Flagged by Analyzer 0 % (0-5); Neutrophil # 4.56 X10^3/uL (2.7-7.7); Neutrophil % 48.9 % (47-70); Platelet Count 243 K/mm3 (150-450); RBC Distribution Width CV 16.2 % (11.6-14.6); RBC Distribution Width SD 46.4 fl (35.1-43.9); Red Blood Count 3.99 M/mm3 (4.2-5.4); White Blood Count 9.3 K/mm3 (4.4-11.0)
[2023-01-27] MEDS: Budesonide Respules 0.5 MG/2 ML AMPUL.NEB. INHALATION (06:49)
[2023-01-27 07:12] LABS: Anion Gap 3 (5-15); BUN 22 mg/dL (7-18); BUN/Creat Ratio 25.3 RATIO (10-20); Calcium,Total 9.3 mg/dL (8.5-10.1); Chloride 105 mmol/L (98-107); Creatinine, Serum 0.87 mg/dL (0.55-1.02); EST Glomerular Filtration Rate 68 mL/min (>60); Est Glom Filt Rate - Afr Amer 82 mL/min (>60); Estimated Creatinine Clearance 46.22 ml/min; Glucose 226 mg/dL (74-106); Potassium 3.9 mmol/L (3.5-5.1); Sodium Level 138 mmol/L (136-145)
[2023-01-27] MEDS: Fluticasone 0.05% 1 SPRAY NASAL.SRY 2 SPRAY NASAL (08:34)
[2023-01-27] MEDS: guaiFENesin 1,200 MG Tablet 1200 MG PO (08:35)
[2023-01-27] MEDS: levETIRAcetam 500 MG Tablet PO (08:35)
[2023-01-27] MEDS: Enoxaparin 40 MG/0.4 ML Syringe SC (08:36)
[2023-01-27] MEDS: Aspirin 81 MG TAB.CHEW PO (08:36)
[2023-01-27] MEDS: Memantine Hydrochloride 10 MG Tablet PO (08:36)
[2023-01-27] MEDS: Pantoprazole Sodium 40 MG Tablet PO (08:37)
[2023-01-27] MEDS: Calcium (Elemental) 500 MG Tablet PO (08:37)
[2023-01-27] MEDS: Magnesium Chloride 64 MG Delay Rel.Tablet 128 MG PO (08:37)
[2023-01-27] MEDS: Vibegron 75 MG TABLET PO (08:37)
[2023-01-27] MEDS: Venlafaxine HCl 75 MG Tablet PO (08:38)
[2023-01-27] MEDS: Menthol/Lanolin/Calamine/Znox 113 GM Tube 1 APPLIC TOPICAL ×2 (08:38→14:10)
[2023-01-27] MEDS: clonazePAM 0.5 MG Tablet PO (08:50)
[2023-01-27] MEDS: Insulin Glargine-YFGN 100 UNIT/ML Pen 10 UNIT SC (08:53)
--- NOTE | 2023-01-27 12:19 | DCINST_ITS ---
Discharge Instructions Diet Discharge Diet: Carb Control Diet Activity Discharge Activity: Return to Normal Activity Dressing / Incision Call your doctor if you observe: Fever of 101 or Higher, Shortness of breath, Dizziness, Fainting spells, Swelling in the ankles, Chest pain and Increased palpitations (irregular heartbeat) Follow Up Care Test Results: Test results from this visit will be discussed in further detail at your follow- up appointment, if applicable. Discharge Plan Admission Admit Date/Time: 01/25/23 03:36 Attending Provider: Ermias Woods Primary Care Provider: Jh Hewitt Consulting Providers: Marleni Handy Discharge Orders/Prescriptions Prescriptions: New azithromycin 500 mg tablet 500 mg PO DAILY 2 Days Qty: 2 0RF Rx Instructions: start on day 2 of therapy amoxicillin-pot clavulanate 875-125 mg tablet 1 tab PO BID 5 Days Qty: 10 0RF Continued metformin [Glucophage] 1,000 MG tablet 1,000 mg PO BID Patient Comments: BLOOD SUGAR-Diabetic aspirin 81 MG tablet,chewable 81 mg PO DAILY@0800 Patient Comments: Blood Thinner gabapentin 100 MG capsule 200 mg PO TID Patient Comments: NERVE PAIN venlafaxine 75 MG tablet 75 mg PO BID Patient Comments: Antidepressant clonazepam 0.5 MG tablet 0.5 mg PO BID Patient Comments: ANXIETY omeprazole 20 MG capsule 40 mg PO DAILY Patient Comments: HEART BURN olanzapine [Zyprexa] 5 MG tablet 10 mg PO QHS Patient Comments: Depression albuterol sulfate [Ventolin HFA] 1 INHALER inhaler 1 puff inhalation Q4H PRN PRN (Reason: Wheezing) Patient Comments: Helps with breathing rosuvastatin [Crestor] 20 MG tablet 20 mg PO QHS cholecalciferol (vitamin D3) [Vitamin D3] 1,000 tablet 25 mcg PO DAILY Patient Comments: calcium carbonate 500 MG tablet 500 mg PO BID memantine 5 MG tablet 10 mg PO BID acetaminophen 500 MG tablet 1,000 mg PO Q8H PRN PRN (Reason: Pain) Qty: 20 0RF levetiracetam 500 mg Tablet 500 mg PO BID insulin glargine [Lantus Solostar U-100 Insulin] 100 unit/mL (3 mL) Insulin Pen 16 unit SUBCUT QPM insulin glargine [Lantus Solostar U-100 Insulin] 100 unit/mL (3 mL) Insulin Pen 10 unit SUBCUT DAILY magnesium oxide 400 mg magnesium Capsule 400 mg PO DAILY Humalog KwikPen Insulin 200 unit/mL (3 mL) Insulin Pen See Protocol SUBCUT TID Protocol: 4. Sliding Scale Insulin High-Med Dosing Condition: 150-199 mg/dl = 2 units Condition: 200-259 mg/dl = 4 units Condition: 260-324 mg/dl = 6 units Condition: 325-374 mg/dl = 8 units Condition: 375-409 mg/dl = 10 units Condition: 410-449 mg/dl = 11 units Condition: Greater than 449 call physician Protocol Text: - Use for Total Daily Dose of Insulin 56-80 units - Patient who are insulin resistant or septic HIGH MEDIUM DOSING ALGORITHM Rx Instructions: sliding scale tramadol 50 mg tablet 50 mg PO TID PRN (Reason: pain) fluticasone propionate 50 mcg/actuation spray,suspension 2 spray INTRANASAL DAILY Gemtesa 75 mg tablet 75 mg PO DAILY Systane Gel 0.3 % gel 1 drp EACH EYE Q6H guaifenesin [Mucus Relief ER] 1,200 mg tablet extended release 12hr 1,200 mg PO BID dicyclomine 10 mg capsule 20 mg PO TIDAC Referrals / Follow Up: Jh Hewitt MD [Primary Care Provider] - Within 1 Week Disposition Disposition (needs filled in before D/C Order can be placed): Home, Self Care
[2023-01-27] MEDS: 0.9% Saline Lock 10 ML Syringe IV (14:27)
--- NOTE | 2023-01-27 15:03 | DS.PCM_ITS ---
Providers Date of Admission: 01/25/23 Primary Care Physician: Dr. Jh Hewitt MD Reason For Visit: BL,PNA,HYPOXIA Diagnosis Discharge Diagnosis (1) Pneumonia of both lower lobes: Status: Acute Code(s): J18.9 - Pneumonia, unspecified organism (2) Hypoxemia: Status: Acute Code(s): R09.02 - Hypoxemia Medications at Discharge Home Medications aspirin 81 mg chewable tablet 81 mg PO DAILY@0800 heart health 03/09/13 gabapentin 100 mg capsule 200 mg PO TID neuropathy 03/09/13 metformin 1,000 mg tablet (Glucophage) 1,000 mg PO BID diabetes 03/09/13 clonazepam 0.5 mg tablet 0.5 mg PO BID 10/19/13 omeprazole 20 mg capsule,delayed release 40 mg PO DAILY gerd 10/19/13 venlafaxine 75 mg tablet 75 mg PO BID depression 10/19/13 albuterol sulfate 90 mcg/actuation aerosol inhaler (Ventolin HFA) 1 puff inhalation Q4H PRN PRN Wheezing 01/03/14 olanzapine 5 mg tablet (Zyprexa) 10 mg PO QHS depression 01/03/14 cholecalciferol (vitamin D3) 25 mcg (1,000 unit) tablet (Vitamin D3) 25 mcg PO DAILY supplement 01/06/17 rosuvastatin 20 mg tablet (Crestor) 20 mg PO QHS cholesterol 01/06/17 calcium carbonate 500 mg calcium (1,250 mg) tablet 500 mg PO BID Indigestion 11/16/18 memantine 5 mg tablet 10 mg PO BID 11/16/18 acetaminophen 500 mg tablet 1,000 mg (2 x 500 mg) PO Q8H PRN PRN Pain #20 tabs 11/18/18 insulin glargine 100 unit/mL (3 mL) subcutaneous pen (Lantus Solostar U-100 Insulin) 10 unit subcut DAILY 10/22/20 insulin glargine 100 unit/mL (3 mL) subcutaneous pen (Lantus Solostar U-100 Insulin) 16 unit subcut QPM 10/22/20 insulin lispro 200 unit/mL (3 mL) subcutaneous pen (Humalog KwikPen U-200 Insulin) See Protocol subcut TID sliding scale 10/22/20 levetiracetam 500 mg tablet 500 mg PO BID 10/22/20 magnesium oxide 400 mg PO DAILY 10/22/20 artificial tears(hypromellose) 0.3 % eye gel (Systane Gel) 1 drp EACH EYE Q6H 12/05/22 dicyclomine 10 mg capsule 20 mg PO TIDAC Abdominal Pain 12/05/22 fluticasone propionate 50 mcg/actuation nasal spray,suspension 2 spray intranasal DAILY 12/05/22 guaifenesin 1,200 mg tablet, extended release 12 hr (Mucus Relief ER) 1,200 mg PO BID 12/05/22 vibegron 75 mg tablet (Gemtesa) 75 mg PO DAILY 12/05/22 tramadol 50 mg tablet 50 mg PO TID PRN pain 12/19/22 amoxicillin 875 mg-potassium clavulanate 125 mg tablet 1 tab PO BID 5 days #10 tabs 01/27/23 azithromycin 500 mg tablet 500 mg PO DAILY 2 days #2 tabs 01/27/23 Hospital Course Operations None Procedures None Summary of Care Provided Minutes Spent on Discharge: 32 Hospital Course: Per HPI: The patient is a 77 y/o F w/ PMHx: CKD stage III unclear subtype per GFR trending, Hx CVA, HLD, Dementia unclear type with unclear behavioral disturbance history, Anxiety and Depression, Diabetes mellitus type II with chronic neuropathy, Chronic anemia, Hx VTE, Seizure disorder, Tobacco use, Allergic rhinitis, GERD who presents to the [facility] ED on 01/25/2023 with history of approximately 2 hours prior to ED arrival patient noted she woke with diaphoresis with mild frontal throbbing headache, myalgias, fatigue, malaise as well as mild nausea without emesis at that time with loose stools earlier in the day with COVID testing at her facility which was reportedly negative with nonproductive cough and admission that she does have coughing occasionally with food and liquid intake with no specific tested fever or chills but noted hypoxia upon their evaluation prompting referral to the ED for further assessment. Wor kup in the ED included T96.9, heart rate 94, BP 159/82, respiratory rate 16, 95% on room air however patient respiratory rate increased and patient desaturated to 86% on room air improving to 94% on 2 L nasal cannula, CBC with WBC 12.9, hemoglobin 9.7, MCV 80, platelet 279 with lymphocytosis, CMP with BUN/creatinine 24/1.09, glucose 198, troponin 8.0, urinalysis with no obvious evidence of UTI or marked dehydration, rapid influenza antigen and RSV antigen all negative, chest x-ray with bilateral pulmonary opacities concerning for infection, EKG was sinus rhythm with no acute evidence of ischemia. In the ED patient administered normal saline maintenance fluids, Tylenol 1000 mg p.o. x 1, Zithromax 500 mg IV x 1, Zofran 4 mg IV x 1 as well as IV Zosyn. Hospital Course: 1. Bilateral pneumonia with acute hypoxia?77-year-old female presented to the hospital hypoxia. She was found to have bilateral pneumonia and was started on azithromycin and Zosyn. She had an ambulatory pulse ox yesterday that did not demonstrate any need for oxygen with ambulation and she has maintained her oxygen saturations on room air for over 24 hours at this point. I discussed with her the possibility for discharge today on 2 more days of p.o. azithromycin at 500 mg as well as p.o. Augmentin twice daily. She expressed understanding of the risk benefits going home and would like to go home today. I do recommend that she follow-up with her PCP in 3 to 5 days, she was endorsing a few episodes of diarrhea that did not appear to have increased while here however given the antibiotic she will be on if she does continue to have worsening diarrhea may need outpatient enteric antigen testing. 2. Type 2 diabetes, anxiety, depression, history of CVA, hyperlipidemia, dementia, chronic anemia, CKD 3, seizure disorder all chronic medical conditions which complicate her care. Her home medications were continued where appropriate Physical Exam Narrative General: Alert, Oriented x3, Cooperative, No apparent distress HEENT: Atraumatic, PERRLA, EOMI, Normocephalic Oral: Moist Mucosa Neck: Supple, No JVD Lungs: Diminished, Normal air movement, No rhonchi, No wheeze, No rales Cardiovascular: Regular rate, Regular Rhythm, Normal S1, Normal S2, No murmurs Abdomen: Soft, Non Tender, Non-Distended, No Hepato-splenomegaly Extremities: No edema, Capillary Refill Less than 3 Seconds Skin: No rashes, No breakdown Musculoskeletal: No Tenderness to Palpation of Joints or Extremities Neurological: Moves all extremities, Sensory exam intact to light touch and pain Psych/Mental Status: Normal Affect, Appropriate Weight / BMI Weight Weight: 190 lb 4.143 oz Body Mass Index (BMI) 33.7 ABG / Lab / Microbiology Data 01/27/23 05:51 01/27/23 05:51 Laboratory: Laboratory Results - last 24 hr 01/26/23 16:08: POC Glucose 324 H 01/26/23 21:18: POC Glucose 256 H 01/27/23 05:47: POC Glucose 229 H 01/27/23 05:51: WBC 9.3, RBC 3.99 L, Hgb 9.5 L, Hct 31.8 L, MCV 79.7 L, MCH 23.8 L, MCHC 29.9 L, RDW Std Deviation 46.4 H, RDW Coeff of [place]ad[place] 16.2 H, Plt Count 243, MPV 10.7, Immature Gran % (Auto) 0.400, Neut % (Auto) 48.9, Lymph % (Auto) 41.8 H, [place] % (Auto) 6.5, Eos % (Auto) 1.9, Baso % (Auto) 0.5, Absolute Neuts (auto) 4.6, Absolute Lymphs (auto) 3.90, Nucleated RBC % 0, Sodium 138, Potassium 3.9, Chloride 105, Carbon Dioxide 30.0, Anion Gap 3 L, BUN 22 H, Creatinine 0.87, Estim Creat Clear Calc 46.22, Est GFR (MDRD) Af Amer 82, Est GFR (MDRD) Non-Af 68, BUN/Creatinine Ratio 25.3 H, Glucose 226 H, Calcium 9.3 Microbiology: Microbiology 01/25/23 05:25 Mucosa - Nasopharyngeal Respiratory Panel (PCR) - Final 01/25/23 04:50 Mucosa - Nasopharyngeal Coronavirus COVID-19 PCR - Final 01/25/23 01:39 Urine Catheter - Catheter Legionella Antigen - Final 01/25/23 01:39 Urine Catheter - Catheter Streptococcus pneumoniae Antigen (M - Final 01/25/23 00:45 Interface Orders Rapid RSV (DFA) - Final 01/25/23 00:45 Mucosa - Nasopharyngeal Influenza Types A,B Direct FA (ANAMARIA) - Final D/C Instructions Discharge Diet: Carb Control Diet Call your doctor if you observe: Fever of 101 or Higher, Shortness of breath, Dizziness, Fainting spells, Swelling in the ankles, Chest pain and Increased palpitations (irregular heartbeat) Meaningful Use Info Meaningful Use Diagnoses (Choose all that apply): None applicable Discharge Plan Admission Admit Date/Time: 01/25/23 03:36 Attending Provider: Ermias Woods Primary Care Provider: Jh Hewitt Consulting Providers: Marleni Handy Discharge Orders/Prescriptions Prescriptions: New azithromycin 500 mg tablet 500 mg PO DAILY 2 Days Qty: 2 0RF Rx Instructions: start on day 2 of therapy amoxicillin-pot clavulanate 875-125 mg tablet 1 tab PO BID 5 Days Qty: 10 0RF Continued metformin [Glucophage] 1,000 MG tablet 1,000 mg PO BID Patient Comments: BLOOD SUGAR-Diabetic aspirin 81 MG tablet,chewable 81 mg PO DAILY@0800 Patient Comments: Blood Thinner gabapentin 100 MG capsule 200 mg PO TID Patient Comments: NERVE PAIN venlafaxine 75 MG tablet 75 mg PO BID Patient Comments: Antidepressant clonazepam 0.5 MG tablet 0.5 mg PO BID Patient Comments: ANXIETY omeprazole 20 MG capsule 40 mg PO DAILY Patient Comments: HEART BURN olanzapine [Zyprexa] 5 MG tablet 10 mg PO QHS Patient Comments: Depression albuterol sulfate [Ventolin HFA] 1 INHALER inhaler 1 puff inhalation Q4H PRN PRN (Reason: Wheezing) Patient Comments: Helps with breathing rosuvastatin [Crestor] 20 MG tablet 20 mg PO QHS cholecalciferol (vitamin D3) [Vitamin D3] 1,000 tablet 25 mcg PO DAILY Patient Comments: calcium carbonate 500 MG tablet 500 mg PO BID memantine 5 MG tablet 10 mg PO BID acetaminophen 500 MG tablet 1,000 mg PO Q8H PRN PRN (Reason: Pain) Qty: 20 0RF levetiracetam 500 mg Tablet 500 mg PO BID insulin glargine [Lantus Solostar U-100 Insulin] 100 unit/mL (3 mL) Insulin Pen 16 unit SUBCUT QPM insulin glargine [Lantus Solostar U-100 Insulin] 100 unit/mL (3 mL) Insulin Pen 10 unit SUBCUT DAILY magnesium oxide 400 mg magnesium Capsule 400 mg PO DAILY Humalog KwikPen Insulin 200 unit/mL (3 mL) Insulin Pen See Protocol SUBCUT TID Protocol: 4. Sliding Scale Insulin High-Med Dosing Condition: 150-199 mg/dl = 2 units Condition: 200-259 mg/dl = 4 units Condition: 260-324 mg/dl = 6 units Condition: 325-374 mg/dl = 8 units Condition: 375-409 mg/dl = 10 units Condition: 410-449 mg/dl = 11 units Condition: Greater than 449 call physician Protocol Text: - Use for Total Daily Dose of Insulin 56-80 units - Patient who are insulin resistant or septic HIGH MEDIUM DOSING ALGORITHM Rx Instructions: sliding scale tramadol 50 mg tablet 50 mg PO TID PRN (Reason: pain) fluticasone propionate 50 mcg/actuation spray,suspension 2 spray INTRANASAL DAILY Gemtesa 75 mg tablet 75 mg PO DAILY Systane Gel 0.3 % gel 1 drp EACH EYE Q6H guaifenesin [Mucus Relief ER] 1,200 mg tablet extended release 12hr 1,200 mg PO BID dicyclomine 10 mg capsule 20 mg PO TIDAC Referrals / Follow Up: hJ Hewitt MD [Primary Care Provider] - Within 1 Week Disposition Disposition (needs filled in before D/C Order can be placed): Home, Self Care Charges/Coding Visit Charges Inpatient E&M: 61039 Disch Hosp >30min
--- NOTE | 2023-01-27 15:13 | CHAPLAIN ---
Type of Pastoral Visit ___ Initial Visit ___ Follow-up Visit ___ On-call Visit ___ General Patient Visit ___ Spiritual Assessment ___ Family Conference ___ Bereavement ___ Rapid Response ___ Code Blue ___ Other (describe below) Pastoral Care Referral From ___ Patient ___ Family ___ Nurse ___ Physician ___ Hydroelectric Plant Mechanical Engineer ___ Paper Processing Machine Helper ___ Other (describe below) Sacrament/Intervention ___ Active listening ___ Anointing ___ Advent ___ Bereavement ___ Communion ___ Francy exploration ___ ___ Life review ___ Prayer ___ Reconciliation ___ Sacrament of Sick ___ Supportive presence ___ Wedding ___ Other (describe below) Pastoral Comments patient was sound asleep and did not stir even when her name was called out
--- NOTE | 2023-01-27 15:18 | CASEMGMT ---
Social Work Per physician pt is ready for discharge today. SW spoke with speech therapy and no further ST is recommended at this time. SW met with pt and pt is agreeable to return to [facility] today and her dgt is in the room and will be transporting pt back. Discharge orders faxed to [facility] and VM left informing of discharge today. Nursing updated that pt is ready for dc. Disposition: Return to [facility] YULISSA Ingram
[2023-01-27 17:01] LABS: Bedside Glucose 319 mg/dL (74-106)
== END 2023-01-27 16:00 | disposition home or self-care (01) | DRG 178 ==
LOC: ED 03:21 → ICU 03:47 → MS3 01-26 16:41
PROVIDERS: Admitting Provider Family Medicine; Emergency Provider Emergency Medicine; PCP Internal Medicine; Referring Provider Emergency Medicine; Visit Provider Family Medicine
DX: J69.0 Pneumonitis due to inhalation of food and vomit (principal); I69.351 Hemiplegia and hemiparesis following cerebral infarction affecting right dominant side; F03.93 Unspecified dementia, unspecified severity, with mood disturbance; F03.94 Unspecified dementia, unspecified severity, with anxiety; E11.22 Type 2 diabetes mellitus with diabetic chronic kidney disease; E11.40 Type 2 diabetes mellitus with diabetic neuropathy, unspecified; N18.30 Chronic kidney disease, stage 3 unspecified; G40.909 Epilepsy, unspecified, not intractable, without status epilepticus; J44.9 Chronic obstructive pulmonary disease, unspecified; Z79.4 Long term (current) use of insulin; F32.A Depression, unspecified; K21.9 Gastro-esophageal reflux disease without esophagitis; E78.00 Pure hypercholesterolemia, unspecified; J30.9 Allergic rhinitis, unspecified; F17.210 Nicotine dependence, cigarettes, uncomplicated; F41.9 Anxiety disorder, unspecified; R19.7 Diarrhea, unspecified; I69.328 Other speech and language deficits following cerebral infarction; R03.0 Elevated blood-pressure reading, without diagnosis of hypertension; Z66 Do not resuscitate; R09.02 Hypoxemia; Z11.52 Encounter for screening for COVID-19; Z79.82 Long term (current) use of aspirin; Z79.899 Other long term (current) drug therapy
CPT/HCPCS: 36415; 71046; 80048; 80053; 81001; 82962; 84484; 85025; 87449; 87633; 87635; 87641; 87804; 87807; 92526; 92610; 93005; 94640; 94668; 97161; 97166; 99285; 99406; J7030; J7040; A4216; J2405

== ENCOUNTER 2023-04-21 08:53 | Inpatient (IN) | payer MEDICARE, MEDICAID, SELFPAY ==
[2023-04-21] VITALS (18 sets, daily range): BP systolic 94–140; BP diastolic 51–86; PULSE 81–113; RESP 16–26; TEMP 36.4–37.2; O2SAT 3–96; BMI 36.3; BMI 35.2
--- NOTE | 2023-04-21 09:15 | RAD_ITS ---
STUDY: X-RAY CHEST REASON FOR EXAM: Female, 78 years old. dyspnea TECHNIQUE: Two AP portable view of the chest. COMPARISON: None. FINDINGS: Mild to moderate patchy consolidation is present in bilateral lower lobes. The lung volumes are also small. There is no demonstrated pleural abnormality. Normal size heart. Normal mediastinum and kwasi. Normal visualized pulmonary arteries. There is atherosclerotic calcification of the aortic arch with tortuosity. There are diffuse degenerative changes of the visualized thoracic spine. Normal visualized ribs, clavicles, and shoulders. There is no demonstrated abnormality of the visualized soft tissue structures of the upper abdomen. RAD/Chest 1 View (Portable) IMPRESSION: 1. Mild to moderate bilateral lower lobe pneumonia Electronically Signed: Loc Ching MD at 10:19 EDT ,
--- NOTE | 2023-04-21 09:15 | EKG12_ITS ---
Test Reason : SOB Blood Pressure : / mmHG Vent. Rate : 107 BPM Atrial Rate : 107 BPM P-R Int : 148 ms QRS Dur : 084 ms QT Int : 360 ms P-R-T Axes : 039 009 050 degrees QTc Int : 480 ms Sinus tachycardia Otherwise normal ECG Confirmed by CHIN FELICIANO, CONSUELO ([id number]), video tape editor MARY LOU HINOJOSA ([id number]) on 04/22/2023 6:24:45 AM Referred By: EULA Confirmed By:CONSUELO NEELY MD
--- NOTE | 2023-04-21 09:17 | EDS_ITS ---
HPI History of Present Illness Chief Complaint: Shortness of Breath Detail of Chief Complaint: Shortness of breath Informant: patient Narrative Narrative: Patient presents to the emergency department complaint of shortness of breath. Patient states that she has not felt well for the last 3 days. Patient describes a cough that is bringing up some white phlegm. She denies fever. Also has pain in both lungs with breathing and coughing. She denies recent travel or surgery. She does have history remotely of DVT but currently not anticoagulated. She is never had a PE. She denies sick contacts. Patient does describe some mild increase swelling of both legs. She denies significant weight gain. [facility] Medical History Anxiety Arthritis Back pain Bladder disease Cardiology follow-up encounter COPD (chronic obstructive pulmonary disease) Dementia Depression Dietary restriction DVT (deep venous thrombosis) Gastric reflux High cholesterol History of echocardiogram History of edema History of hypotension History of pain when walking History of steroid therapy History of stress test Hx of diabetic neuropathy Injury of back Insulin dependent diabetes mellitus Leg cramps Loss of consciousness Low iron Restless legs Seizures Shortness of breath on exertion Smoker Stroke/cerebrovascular accident Syncope Uses wheelchair Wears dentures Wears glasses Home Medications aspirin 81 mg chewable tablet 81 mg PO DAILY@0800 heart health 03/09/13 [History Last Taken 04/21/23] gabapentin 100 mg capsule 200 mg PO TID neuropathy 03/09/13 [History Last Taken 04/21/23] clonazepam 0.5 mg tablet 0.5 mg PO BID 10/19/13 [History Last Taken 04/21/23] venlafaxine 75 mg tablet 75 mg PO BID depression 10/19/13 [History Last Taken 04/21/23] albuterol sulfate 90 mcg/actuation aerosol inhaler (Ventolin HFA) 1 puff inhalation Q4H PRN Wheezing 01/03/14 [History Last Taken 05/14/14] cholecalciferol (vitamin D3) 25 mcg (1,000 unit) tablet (Vitamin D3) 25 mcg PO DAILY supplement 01/06/17 [History Last Taken 04/21/23] rosuvastatin 20 mg tablet (Crestor) 20 mg PO QHS cholesterol 01/06/17 [History Last Taken 04/20/23] insulin glargine 100 unit/mL (3 mL) subcutaneous pen (Lantus Solostar U-100 Insulin) 16 unit subcut QHS 10/22/20 [History Last Taken 04/20/23] insulin glargine 100 unit/mL (3 mL) subcutaneous pen (Lantus Solostar U-100 Insulin) 36 unit subcut DAILY 10/22/20 [History Last Taken 04/20/23] insulin lispro 200 unit/mL (3 mL) subcutaneous pen (Humalog KwikPen U-200 Insulin) See Protocol subcut TID sliding scale 10/22/20 [History Last Taken 04/20/23] levetiracetam 500 mg tablet 500 mg PO BID 10/22/20 [History Last Taken 04/21/23] magnesium oxide 400 mg PO DAILY 10/22/20 [History Last Taken 04/21/23] artificial tears(hypromellose) 0.3 % eye gel (Systane Gel) 1 drp EACH EYE Q6H 12/05/22 [History Last Taken 04/21/23] fluticasone propionate 50 mcg/actuation nasal spray,suspension 2 spray intranasal DAILY 12/05/22 [History Last Taken 04/21/23] guaifenesin 1,200 mg tablet, extended release 12 hr (Mucus Relief ER) 1,200 mg PO BID 12/05/22 [History Last Taken 04/11/23] vibegron 75 mg tablet (Gemtesa) 75 mg PO DAILY 12/05/22 [History Last Taken 04/21/23] acetaminophen 500 mg tablet 1,000 mg PO Q8H PRN Pain 04/21/23 [History Last Taken 04/20/23] albuterol sulfate 2.5 mg/3 mL (0.083 %) solution for nebulization 2.5 mg inhalation Q6H PRN shortness of breath or wheezing 04/21/23 [History Last Taken Unknown] alendronate 70 mg tablet 70 mg PO FR 04/21/23 [History Last Taken 04/16/23] calcium carbonate 500 mg-vitamin D3 5 mcg (200 unit) tablet (Oyster Shell Calcium-Vitamin D3) 1 tab PO BIDCM 04/21/23 [History Last Taken 04/21/23] dicyclomine 20 mg tablet 20 mg PO TID 04/21/23 [History Last Taken 04/21/23] dulaglutide 0.75 mg/0.5 mL subcutaneous pen injector (Trulicity) 0.75 mg subcut MO 04/21/23 [History Last Taken 04/19/23] fluticasone furoate 100 mcg-vilanterol 25 mcg/dose inhalation powder (Breo Ellipta) 1 ea inhalation DAILY 04/21/23 [History Last Taken 04/20/23] memantine 10 mg tablet 10 mg PO BID 04/21/23 [History Last Taken Unknown] metformin 1,000 mg tablet 1,000 mg PO BID 04/21/23 [History Last Taken 04/21/23] omeprazole 40 mg capsule,delayed release 40 mg PO DAILY 04/21/23 [History Last Taken 04/21/23] peg 400-propylene glycol 0.4 %-0.3 % eye gel drops (Systane Gel) 1 drp ophthalmic (eye) 4X/DAY 04/21/23 [History Last Taken 04/21/23] Allergy/AdvReac Type Severity Reaction Status Date / Time atorvastatin calcium Allergy Unknown Verified 04/21/23 08:57 [From Lipitor] calcium Allergy Unknown Verified 04/21/23 08:57 ibuprofen [From Motrin] Allergy Unknown Verified 04/21/23 08:57 Family History (Updated 01/25/23 @ 03:[address] Marleni Handy MD) Mother Heart disease Hypertension Myocardial infarction Diabetes Father Heart disease Hypertension Myocardial infarction Surgical History History of angioplasty of peripheral vessel History of esophagogastroduodenoscopy (EGD) Hx laparoscopic cholecystectomy Hx of breast biopsy Hx of cataract extraction Hx of colonoscopy Social History (Updated 01/25/23 @ 03:[address] Marleni Handy MD) household members: none housing: assisted living facility Smoking Status: Light Smoker (<10/day) alcohol intake: never substance use type: does not use ROS ROS ED Review of Systems ROS Unobtainable: other Constitutional Constitutional ED: Reports lethargy; Denies chills, fever(s), sweats or weight loss Eyes Eyes: Denies blurry vision, change in vision or diplopia ENT ENT ED: Denies rhinorrhea or sore throat Cardiovascular Cardiovascular: Reports chest pain; Denies orthopnea or racing heartbeat Respiratory/Chest Respiratory/Chest: Reports cough, dyspnea and dyspnea on exertion; Denies orthopnea or sputum Gastrointestinal Gastrointestinal: Denies abdominal pain, diarrhea, nausea or vomiting Genitourinary Genitourinary ED: Denies dysuria, hematuria or urinary frequency Musculoskeletal Musculoskeletal: Denies arthralgias, back pain, myalgias or neck pain Integumentary Denies abscess, Abrasions or rash Neurologic Neurologic: Denies headache(s) or weakness Psychiatric Psychiatric: Denies anxiety, depression or suicidal thoughts Endocrine Endocrinology: Denies polydipsia, polyphagia or polyuria Hematologic/Lymphatic Hematologic/Lymphatic: Denies easy bleeding, easy bruising or lymphadenopathy Allergic/Immunologic Allergic/Immunologic ED: Denies mouth swelling, tongue swelling or urticaria EXAM Physical Exam Const Vital Signs: 04/21/23 08:54 04/21/23 08:57 04/21/23 09:49 Temperature 97.6 F L Temperature Source Temporal Pulse Rate 112 H Respiratory Rate 20 H Respiratory Effort Respiratory Depth Respiratory Pattern Blood Pressure 120/54 L Blood Pressure Mean 76 Pulse Ox 96 91 93 Oxygen Delivery Method Nasal Cannula Nasal Cannula Oxygen Flow Rate (L/min) 2 2 04/21/23 09:55 04/21/23 09:56 04/21/23 10:09 Temperature Temperature Source Pulse Rate 98 100 Respiratory Rate 19 H 26 H Respiratory Effort Short of Breath Respiratory Depth Normal Respiratory Pattern Tachypnea Blood Pressure 122/86 H 113/60 Blood Pressure Mean 98 77 Pulse Ox 93 95 Oxygen Delivery Method Nasal Cannula Nasal Cannula Oxygen Flow Rate (L/min) 2 2 04/21/23 11:05 Temperature Temperature Source Pulse Rate 95 Respiratory Rate 17 Respiratory Effort Respiratory Depth Respiratory Pattern Blood Pressure 111/56 L Blood Pressure Mean 74 Pulse Ox 93 Oxygen Delivery Method Nasal Cannula Oxygen Flow Rate (L/min) 2 Positive well nourished and well developed General Appearance ED: well developed and NAD HEENT Reports TM's clear and moist mucous membranes normocephalic and atraumatic; Negative for trauma or tenderness Tympanic Membrane ED: Yes TM's clear Eyes PERRL and EOMs intact bilaterally General Eye ED: Negative for pale conjunctiva or scleral icterus Neck no lymphadenopathy, supple and no JVD General: Negative for tenderness Chest Wall inspection of chest normal and palpation of chest normal Chest: Negative for tenderness Resp normal respiratory effort Resp Narrative: Patient with few rhonchi and rales in both bases. No conversational dyspnea. No significant tachypnea. Effort and Inspection: Negative for respiratory distress or pain with movement Auscultation: Negative for rhonchi, wheezes or diminished lung sounds Cardio regular rate, regular rhythm, S1 normal heart sound, S2 normal heart sound and no murmurs Peripheral Pulses: pulses 2+ throughout GI normal to inspection, nondistended, normoactive bowel sounds, soft to palpation, non-tender, non-distended and no masses Back/Spine no CVA tenderness and no thoracic nor lumbar tenderness Extremity normal to inspection General Extremety ED: Negative for edema General Extremity: Negative for edema Neuro oriented x3, CN's II-XII intact bilaterally, no sensory deficits noted and gait normal Sensorium / Orientation: awake, alert, oriented to person, oriented to place and oriented to time Motor Exam: strength 5/5 throughout and strength abnormal Psych mental status grossly normal Skin no rashes or lesions noted and no wounds MDM MDM MDM Narrative Medical decision making narrative: Patient presents with cough and dyspnea. IV line established. CBC with differential count of 23,000 with hemoglobin of 8.9 and platelet count 272. Chemistries unremarkable. D-dimer was elevated 2.38. BUN 17 and creatinine 1.21. BNP was minimally elevated 106. Troponin was normal at 13. Lactate was elevated 3.2. Blood cultures ordered. Patient was started on Rocephin and Zithromax IV. Chest x-ray showed bilateral lower lobe infiltrates. CT of the chest was ordered results which are currently pending but on my interpretation it appears she has pneumonia but I do not appreciate any obvious evidence of PE. Will discuss case with hospitalist to evaluate patient for admission Lab Data Attestation: I reviewed the patient's lab results. Labs: Laboratory Results - last 24 hr 04/21/23 09:25 WBC 23.4 H RBC 3.89 L Hgb 8.9 L Hct 30.4 L MCV 78.1 L MCH 22.9 L MCHC 29.3 L RDW Std Deviation 46.5 H RDW Coeff of Fadumo 16.6 H Plt Count 272 MPV 11.2 Immature Gran % (Auto) 1.000 H Neut % (Auto) 80.4 H Lymph % (Auto) 13.0 L [place] % (Auto) 5.0 Eos % (Auto) 0.3 Baso % (Auto) 0.3 Absolute Neuts (auto) 18.8 H Absolute Lymphs (auto) 3.04 Nucleated RBC % 0 D-Dimer Quant (PE/DVT) 2.38 H* Sodium 135 L Potassium 3.5 Chloride 100 Carbon Dioxide 25.0 Anion Gap 10 BUN 17 Creatinine 1.21 H Estim Creat Clear Calc 42.89 Est GFR (MDRD) Af Amer 56 L Est GFR (MDRD) Non-Af 46 L BUN/Creatinine Ratio 14.0 Glucose 339 H Lactic Acid 3.2 H* Calcium 9.1 Troponin I High Sens 13 B-Natriuretic Peptide 106.6 H Radiography Diagnostic Testing: Clinical Impression(s) from Imaging Studies Chest X-Ray 04/21/23 09:15 IMPRESSION: 1. Mild to moderate bilateral lower lobe pneumonia Electronically Signed: Loc Ching MD at 10:19 EDT , 1 view chest x-ray obtained interpreted by myself as bilateral lower lobe infiltrates without pneumothorax or acute process otherwise. Radiology in agreement. EKG Initial EKG: Attestation: I personally reviewed and interpreted this EKG as follows: Comments: Sinus rhythm with rate of 107 bpm with no acute ST segment changes Critical Care Time Critical care time (excluding procedures): 30-74 minutes, Discussing w/Patient &/or Family/Pointer Helper, Discussing w/Consultants, Arranging Admission or Transfer, Performing Direct Patient Care at Bedside and - (30 minutes) Discharge Plan Dx/Rx/DC Orders Clinical Impression: Acute dyspnea, Sepsis, Pneumonia, Acidosis, lactic Disposition Disposition: [facility]
[2023-04-21 09:39] LABS: Absolute Lymphocyte Count 3.04 X10^3/uL (0.83-4.51); Absolute Neutrophil Count 18.8 X10^3/uL (2.0-7.7); Basophil# 0.08 X10^3/uL; Basophil% 0.3 % (0-1); Eosinophil# 0.06 X10^3/uL; Eosinophils% 0.3 % (0-5); Hematocrit 30.4 % (37-47); Hemoglobin 8.9 g/dL (12.0-15.0); Lymphocyte # 3.04 X10^3/ul (0.83-4.51); Mean Corp Hgb Conc 29.3 g/dL (32-36); Mean Corpuscular Hgb 22.9 pg (27.0-32.0); Mean Corpuscular Volume 78.1 fL (81-99); Mean Platelet Vol. 11.2 fl (6.2-12.0); Monocyte# 1.18 X10^3/uL; NRBC Flagged by Analyzer 0 % (0-5); Neutrophil # 18.77 X10^3/uL (2.7-7.7); Neutrophil % 80.4 % (47-70); Platelet Count 272 K/mm3 (150-450); RBC Distribution Width CV 16.6 % (11.6-14.6); RBC Distribution Width SD 46.5 fl (35.1-43.9); Red Blood Count 3.89 M/mm3 (4.2-5.4); White Blood Count 23.4 K/mm3 (4.4-11.0)
[2023-04-21] MEDS: 0.9% Normal Saline (1000mL) 1,000 ML 150 ML IV (09:51)
[2023-04-21 09:55] LABS: D-Dimer Quantitative (DVT/PE) 2.38 FEU/ug/m (0.27-0.49)
--- NOTE | 2023-04-21 09:59 | CT_ITS ---
STUDY: CTA CHEST REASON FOR EXAM: Female, 78 years old. dyspnea, elevated d-dimer RADIATION DOSAGE (If Supplied By Facility): CTDIvol = ( 10.94 ) mGy, DLP = ( 393.02 ) mGycm TECHNIQUE: The examination was performed with the intravenous administration of IV 100mL [id number]-370. Post-processing of the angiographic images was performed, with multiplanar reformation and 3D reconstruction. Individualized dose optimization techniques were used for this CT. COMPARISON: Chest x-ray dated April 21, 2023. CT of the chest dated December 05, 2022 FINDINGS: Redemonstration of chronic mediastinal reactive subcentimeter lymphadenopathy. The hilar adenopathy is also stable/unchanged. Redemonstration of diffuse interstitial thickening with groundglass edema throughout both lungs as well as mild patchy infiltrates versus chronic fibrosis in the bilateral lung bases. The process appears similar to what was seen on November 2022 exam likely due to acute on chronic disease/exacerbation. Small subpleural area of thickening/nodularity in the lateral aspect of the right middle lobe redemonstrated and best seen on image 95/192 series 2. No focal consolidation is present. Multiple paraseptal cysts in the bilateral upper lobes are reidentified. Normal enhancement of the main pulmonary artery and right and left pulmonary arteries. Normal enhancement of the bilateral peripheral pulmonary arteries. There is no demonstrated pulmonary embolism. There is atherosclerotic calcification of the aortic arch with tortuosity. There is no demonstrated aortic dissection. Normal heart and pericardium. There are calcifications of the coronary arteries. Normal visualized trachea and bronchi. The lungs are well expanded. No pleural effusion is present. Normal chest wall structures. There are degenerative changes of thoracic spine. Normal visualized upper abdomen. CT/CTA Chest W/WO Contrast IMPRESSION: 1. Redemonstration of chronic mediastinal reactive subcentimeter lymphadenopathy. The hilar adenopathy is also stable/unchanged. Redemonstration of diffuse interstitial thickening with groundglass edema throughout both lungs as well as mild patchy infiltrates versus chronic fibrosis in the bilateral lung bases. The process appears similar to what was seen on November 2022 exam likely due to acute on chronic disease/exacerbation. Underlying interstitial lung disease with superimposed acute pneumonitis is suspected 2. No pulmonary embolism or arterial dissection. Electronically Signed: Loc Ching MD at 12:01 EDT ,
[2023-04-21 10:01] LABS: Anion Gap 10 (5-15); BNP,B-Type NATRIURETIC PEPTIDE 106.6 pg/mL (0-100); BUN 17 mg/dL (7-18); Calcium,Total 9.1 mg/dL (8.5-10.1); Chloride 100 mmol/L (98-107); Creatinine, Serum 1.21 mg/dL (0.55-1.02); EST Glomerular Filtration Rate 46 mL/min (>60); Est Glom Filt Rate - Afr Amer 56 mL/min (>60); Estimated Creatinine Clearance 42.89 ml/min; Glucose 339 mg/dL (74-106); Potassium 3.5 mmol/L (3.5-5.1); Sodium Level 135 mmol/L (136-145); Troponin-I HS 13 pg/mL (3.0-54.0)
[2023-04-21 10:20] LABS: Lactic Acid 3.2 mmol/L (0.4-1.9)
[2023-04-21] MEDS: Ceftriaxone 1 GM/50 ML BAG IV (10:54)
[2023-04-21] MEDS: Azithromycin 500 MG in Dextrose 5%-Water (250mL Bag) 250 ML 250 MG IV (11:41)
--- NOTE | 2023-04-21 11:48 | PCM.HP.STD ---
HPI - General General Date of Admission: 04/21/23 Date of Service: 04/21/23 Chief Complaint: Shortness of breath and hypoxia HPI Narrative PETE SCHUMACHER, is a 78 F who presented to the emergency department at [facility] on 04/21/2023 from local assisted living due to worsening shortness of breath at rest and with exertion over the last 3 days. The patient states she has a mild cough which is new and productive of clear phlegm. She denies fever, chills, nausea, vomiting, diarrhea or constipation, she has had no chest pain but does complain that she has had some generalized weakness and fatigue associated with this over the last 3 days. She also complained of pain with deep breathing and her lungs. She has had no recent travel or surgery and has a remote history of DVT with no history of PE and has never been anticoagulated. She denies any known sick contacts but does state her legs have been more swollen lately. She has had no significant weight gain of which she is aware. She lives alone in assisted living and typically ambulates with a wheeled walker. She does have a history of tobacco abuse and still smokes about 3 cigarettes a day. 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 Vital signs on admission show temperature of 97.6, heart rate 112, blood pressure was 120/54, respiratory rate was 20 and oxygen saturations were 91% on room air. During ambulation on room air she desatted to 85% per discussion with the ER physician. Her CBC shows a marked leukocytosis with a white count of 23.4 and a left shift with an 80.4% neutrophilia. She has anemia with a hemoglobin of 8.9 which appears to be chronic but has trended down over the last several years. A D-dimer was done and found to be elevated at 2.38. Chemistry panel showed mild hyponatremia with a sodium of 135, mildly elevated serum creatinine 1.21 a glucose of 339, normal troponin and a mildly elevated BNP at 106.6. Her initial lactic acid was 3.9 with a repeat of 2.3. We I suspect that her lactic acidosis was related to her hypoxemia. Chest x-ray showed mild to moderate bilateral lower lobe pneumonia and a CTA was performed due to her elevated D-dimer which demonstrated chronic mediastinal subcentimeter lymphadenopathy, hilar lymphadenopathy and diffuse interstitial thickening with groundglass edema in bilateral lungs as well as patchy infiltrates versus chronic fibrosis in the bilateral lung bases. Upon review her CT appears to be similar to CT done in 2022. She had no PE or arterial dissection. Rapid COVID/flu/RSV was unremarkable. Blood cultures were obtained in the emergency department and she was started on ceftriaxone and azithromycin. With her living in an assisted living facility that is associated with a nursing facility I did broaden her coverage to cover Pseudomonas and MRSA for the short-term. [facility] Medical History Anxiety Arthritis Back pain Bladder disease Cardiology follow-up encounter COPD (chronic obstructive pulmonary disease) Dementia Depression Dietary restriction DVT (deep venous thrombosis) Gastric reflux High cholesterol History of echocardiogram History of edema History of hypotension History of pain when walking History of steroid therapy History of stress test Hx of diabetic neuropathy Injury of back Insulin dependent diabetes mellitus Leg cramps Loss of consciousness Low iron Microcytic anemia Restless legs Seizures Shortness of breath on exertion Smoker Stroke/cerebrovascular accident Syncope Uses wheelchair Wears dentures Wears glasses Home Medications aspirin 81 mg chewable tablet 81 mg PO DAILY@0800 heart health 03/09/13 [History Last Taken 04/21/23] gabapentin 100 mg capsule 200 mg PO TID neuropathy 03/09/13 [History Last Taken 04/21/23] clonazepam 0.5 mg tablet 0.5 mg PO BID 10/19/13 [History Last Taken 04/21/23] venlafaxine 75 mg tablet 75 mg PO BID depression 10/19/13 [History Last Taken 04/21/23] albuterol sulfate 90 mcg/actuation aerosol inhaler (Ventolin HFA) 1 puff inhalation Q4H PRN Wheezing 01/03/14 [History Last Taken 05/14/14] cholecalciferol (vitamin D3) 25 mcg (1,000 unit) tablet (Vitamin D3) 25 mcg PO DAILY supplement 01/06/17 [History Last Taken 04/21/23] rosuvastatin 20 mg tablet (Crestor) 20 mg PO QHS cholesterol 01/06/17 [History Last Taken 04/20/23] insulin glargine 100 unit/mL (3 mL) subcutaneous pen (Lantus Solostar U-100 Insulin) 16 unit subcut QHS 10/22/20 [History Last Taken 04/20/23] insulin glargine 100 unit/mL (3 mL) subcutaneous pen (Lantus Solostar U-100 Insulin) 36 unit subcut DAILY 10/22/20 [History Last Taken 04/20/23] insulin lispro 200 unit/mL (3 mL) subcutaneous pen (Humalog KwikPen U-200 Insulin) See Protocol subcut TID sliding scale 10/22/20 [History Last Taken 04/20/23] levetiracetam 500 mg tablet 500 mg PO BID 10/22/20 [History Last Taken 04/21/23] magnesium oxide 400 mg PO DAILY 10/22/20 [History Last Taken 04/21/23] artificial tears(hypromellose) 0.3 % eye gel (Systane Gel) 1 drp EACH EYE Q6H 12/05/22 [History Last Taken 04/21/23] fluticasone propionate 50 mcg/actuation nasal spray,suspension 2 spray intranasal DAILY 12/05/22 [History Last Taken 04/21/23] guaifenesin 1,200 mg tablet, extended release 12 hr (Mucus Relief ER) 1,200 mg PO BID 12/05/22 [History Last Taken 04/11/23] vibegron 75 mg tablet (Gemtesa) 75 mg PO DAILY 12/05/22 [History Last Taken 04/21/23] acetaminophen 500 mg tablet 1,000 mg PO Q8H PRN Pain 04/21/23 [History Last Taken 04/20/23] albuterol sulfate 2.5 mg/3 mL (0.083 %) solution for nebulization 2.5 mg inhalation Q6H PRN shortness of breath or wheezing 04/21/23 [History Last Taken Unknown] alendronate 70 mg tablet 70 mg PO FR 04/21/23 [History Last Taken 04/16/23] calcium carbonate 500 mg-vitamin D3 5 mcg (200 unit) tablet (Oyster Shell Calcium-Vitamin D3) 1 tab PO BIDCM 04/21/23 [History Last Taken 04/21/23] dicyclomine 20 mg tablet 20 mg PO TID 04/21/23 [History Last Taken 04/21/23] dulaglutide 0.75 mg/0.5 mL subcutaneous pen injector (Trulicity) 0.75 mg subcut MO 04/21/23 [History Last Taken 04/19/23] fluticasone furoate 100 mcg-vilanterol 25 mcg/dose inhalation powder (Breo Ellipta) 1 ea inhalation DAILY 04/21/23 [History Last Taken 04/20/23] memantine 10 mg tablet 10 mg PO BID 04/21/23 [History Last Taken Unknown] metformin 1,000 mg tablet 1,000 mg PO BID 04/21/23 [History Last Taken 04/21/23] omeprazole 40 mg capsule,delayed release 40 mg PO DAILY 04/21/23 [History Last Taken 04/21/23] peg 400-propylene glycol 0.4 %-0.3 % eye gel drops (Systane Gel) 1 drp ophthalmic (eye) 4X/DAY 04/21/23 [History Last Taken 04/21/23] Allergy/AdvReac Type Severity Reaction Status Date / Time atorvastatin calcium Allergy Unknown Verified 04/21/23 08:57 [From Lipitor] calcium Allergy Unknown Verified 04/21/23 08:57 ibuprofen [From Motrin] Allergy Unknown Verified 04/21/23 08:57 Family History Mother Heart disease Hypertension Myocardial infarction Diabetes Father Heart disease Hypertension Myocardial infarction Surgical History History of angioplasty of peripheral vessel History of esophagogastroduodenoscopy (EGD) Hx laparoscopic cholecystectomy Hx of breast biopsy Hx of cataract extraction Hx of colonoscopy Social History household members: none housing: assisted living facility Smoking Status: Light Smoker (<10/day) alcohol intake: never substance use type: does not use ROS Constitutional Constitutional: Reports fatigue and weakness; Denies anorexia, change in weight, chills, fever(s), malaise, night sweats or other Eyes Eyes: Denies blurry vision, change in eye color, change in vision, discharge from eye(s), double vision, erythema, eye pain, loss of vision or other ENT HEENT: Reports abnormal hearing and hearing loss; Denies dysphagia, ear pain, epistaxis, headache(s), nasal congestion, nasal discharge, post nasal drip, sinus pressure, sore throat or other Cardiovascular Cardiovascular: Reports chest pain, dyspnea on exertion and edema; Denies claudication, lightheadedness, orthopnea, palpitations, paroxysmal nocturnal dyspnea, rapid heart rate, syncope or other Respiratory/Chest Respiratory/Chest: Reports cough, dyspnea, shortness of breath at rest and shortness of breath with exertion Gastrointestinal Gastrointestinal: Denies abdominal pain, coffee ground emesis, constipation, diarrhea, dyspepsia, hematemesis, hematochezia, loose stools, melena, nausea, vomiting or other Genitourinary Genitourinary: Reports urinary incontinence; Denies burning urination, difficulty urinating, dysuria, hematuria, nocturia, urinary frequency, urinary hesitancy, urinary urgency or other Musculoskeletal Musculoskeletal: Denies arthralgias, back pain, joint pain, joint stiffness, joint swelling, myalgias, neck pain or other Neurologic Neurologic: Denies abnormal gait, abnormal speech, confusion, disequilibrium, dizziness, focal weakness, headache(s), numbness, paresthesias, seizure-like activity, seizures, syncope, tingling, tremor(s) or other Psychiatric Psychiatric: Denies anxiety, depression, homicidal ideation, suicidal ideation or other Endocrine Endocrinology: Denies change in body appearance, cold intolerance, excessive sweating, heat intolerance, polydipsia, polyuria or other Hematologic/Lymphatic Hematologic/Lymphatic: Denies anemia, easy bleeding, easy bruising, lymphadenopathy or other Allergic/Immunologic Allergic/Immunologic: Denies rhinitis, hives, eczemia, asthma or other Vital Signs Vital Signs Vital Signs: 04/21/23 08:54 04/21/23 08:57 04/21/23 09:49 Temperature 97.6 F L Temperature Source Temporal Pulse Rate 112 H Respiratory Rate 20 H Respiratory Effort Respiratory Depth Respiratory Pattern Blood Pressure 120/54 L Blood Pressure Mean 76 Pulse Ox 96 91 93 Oxygen Delivery Method Nasal Cannula Nasal Cannula Oxygen Flow Rate (L/min) 2 2 04/21/23 09:55 04/21/23 09:56 04/21/23 10:09 Temperature Temperature Source Pulse Rate 98 100 Respiratory Rate 19 H 26 H Respiratory Effort Short of Breath Respiratory Depth Normal Respiratory Pattern Tachypnea Blood Pressure 122/86 H 113/60 Blood Pressure Mean 98 77 Pulse Ox 93 95 Oxygen Delivery Method Nasal Cannula Nasal Cannula Oxygen Flow Rate (L/min) 2 2 04/21/23 11:05 Temperature Temperature Source Pulse Rate 95 Respiratory Rate 17 Respiratory Effort Respiratory Depth Respiratory Pattern Blood Pressure 111/56 L Blood Pressure Mean 74 Pulse Ox 93 Oxygen Delivery Method Nasal Cannula Oxygen Flow Rate (L/min) 2 Weight Weight: 93.1 kg Body Mass Index (BMI) 36.3 Physical Exam Const alert, oriented x3, no apparent distress and well nourished; Negative for average body habitus or healthy appearing Constitutional Narrative: Morbidly obese, older, white female, sitting up in bed, nursing at bedside, patient appears comfortable and nontoxic however she does have some mild conversational dyspnea with associated mild tachypnea General Appearance: cooperative HEENT normocephalic, head/scalp atraumatic and moist oral mucous membranes HEENT Narrative: Mild to moderate hearing loss, Mallampati is 3, no thrush Eyes PERRL and EOMs intact bilaterally Eyes Narrative: Mild conjunctival pallor with no scleral icterus Neck Neck Narrative: Trachea midline, no thyroid enlargement Resp No normal respiratory effort, no retractions, no use of accessory muscles and No clear to auscultation bilaterally Resp Narrative: Mild tachypnea with no signs of extremis, scattered wheeze and inspiratory rhonchi both of which improved with cough and otherwise is diffusely diminished Auscultation: rhonchi and wheezes; Negative for rales Cardio regular rhythm, S1 normal heart sound, S2 normal heart sound, no murmurs, no rub, no gallops and no clicks Cardio Narrative: Mild tachycardia GI normal to inspection, nondistended, normoactive bowel sounds, soft to palpation and non-tender Extremity no clubbing, cyanosis or edema Extremity Narrative: Trace bilateral lower extremity edema, no cyanosis or clubbing Skin no rashes or lesions noted, no wounds, skin turgor normal, no jaundice, no petechiae and no mottling Neuro oriented x3, CN's II-XII intact bilaterally, moves all extremities and no focal motor deficits Speech: speech normal Psych affect normal Psych Narrative: Very pleasant, eye contact is good, patient interacts appropriately Results Medical Records Data Attestation: I reviewed the patient's medical records Lab / Micro Data 04/21/23 09:25 04/21/23 09:25 Labs: Laboratory Results - last 24 hr 04/21/23 09:25: WBC 23.4 H, RBC 3.89 L, Hgb 8.9 L, Hct 30.4 L, MCV 78.1 L, MCH 22.9 L, MCHC 29.3 L, RDW Std Deviation 46.5 H, RDW Coeff of Fadumo 16.6 H, Plt Count 272, MPV 11.2, Immature Gran % (Auto) 1.000 H, Neut % (Auto) 80.4 H, Lymph % (Auto) 13.0 L, [place] % (Auto) 5.0, Eos % (Auto) 0.3, Baso % (Auto) 0.3, Absolute Neuts (auto) 18.8 H, Absolute Lymphs (auto) 3.04, Nucleated RBC % 0, D-Dimer Quant (PE/DVT) 2.38 H*, Sodium 135 L, Potassium 3.5, Chloride 100, Carbon Dioxide 25.0, Anion Gap 10, BUN 17, Creatinine 1.21 H, Estim Creat Clear Calc 42.89, Est GFR (MDRD) Af Amer 56 L, Est GFR (MDRD) Non-Af 46 L, BUN/Creatinine Ratio 14.0, Glucose 339 H, Lactic Acid 3.2 H*, Calcium 9.1, Troponin I High Sens 13, B-Natriuretic Peptide 106.6 H Micro: Microbiology 04/21/23 09:50 Mucosa - Nose SARS-CoV-2, Influenza & RSV (PCR) - Final Imaging Radiology Impression Chest X-Ray 04/21/23 09:15 IMPRESSION: 1. Mild to moderate bilateral lower lobe pneumonia Electronically Signed: Loc Ching MD at 10:19 EDT Reading Location ID and State: [address] [place] [address] , Service support , Assessment & Plan Assessment/Plan (1) Acidosis, lactic: (2) Pneumonia: (3) Hypoxia: (4) Elevated serum creatinine: (5) Hyperglycemia: (6) Leukocytosis: (7) Elevated d-dimer: PLAN: Plan Acute hypoxic respiratory failure secondary to suspected pneumonia viral versus bacterial -Patient with tachycardia, tachypnea, and hypoxia -Currently stabilized on 2 L of nasal cannula -CT is overall unchanged but respiratory status is worse -Check sputum culture -Check strep pneumo and Legionella antigens -Check respiratory viral panel -Will cover broadly for now as she does live in assisted living facility with [facility] and utilize azithromycin for atypicals, Zosyn, and vancomycin -Check MRSA PCR and if negative will be able to discontinue vancomycin -Aggressive pulmonary toilet -I-S and incentive spirometry -IV steroids 40 every 8 with plan to taper at discharge -BNP is mildly elevated however patient does not appear to be in fulminant failure however will check echocardiogram as her last one was 4 years ago--> EF was 60% at that time -May need to consider pulmonary medicine consult is pending on course -Will make pulmonary referral at discharge Elevated D-dimer -CTA was negative for PE Microcytic anemia -Hemoglobin has slowly been trending down -Check iron studies -Check guaiac stool -Repeat CBC in a.m. Lactic acidosis -I do not believe sepsis is present -Likely related to hypoxia -Is improving overall DM-2 with hyperglycemia -Hold home metformin -Continue subcu insulin -SSI -Check A1c -Acute elevation may be due to the above Elevated serum creatinine -Baseline appears to run between 0.8 and 1.0 -1.2 on admission -Patient was hydrated gently in the emergency department -Repeat in a.m. History of dementia -Continue home medication Generalized weakness/debility -PT/OT consultation -Case management/social work consultation for assistance with discharge planning -Patient is currently in assisted living History of DVT -Patient is not anticoagulated History of stroke -Patient with some mild right hand and foot weakness -Continue baby aspirin -Uses a wheeled walker at baseline -Continue modification of secondary risk factors Hyperlipidemia -Continue statin GERD -Continue PPI Seizure disorder -Continue home Keppra Anxiety/depression -Continue home medication regimen with venlafaxine, Zyprexa and clonazepam DVT prophylaxis -Subcu Lovenox CODE STATUS -DNR CCA with no intubation as per discussion on admission Charges/Coding Visit Charges Inpatient E&M: 27193 Init Hosp L2
--- NOTE | 2023-04-21 11:51 | NURSING ---
MED SURG MICHAEL PNEUMONIA, DYPSNEA, LACTIC ACIDOSIS, LEUKOCYTOSIS
[2023-04-21 13:05] LABS: Ferritin 10 ng/mL (8-252); Iron 20 ug/dL (50-170); Iron Binding Capacity,Total 310 ug/dL (250-450); PERCENT IRON SATURATION 6.5 % (15.0-55.0)
[2023-04-21 13:33] LABS: Reflex Lactate? Y
[2023-04-21 15:49] LABS: Lactic Acid 2.3 mmol/L (0.4-1.9)
[2023-04-21 17:10] LABS: Bedside Glucose 179 mg/dL (74-106)
[2023-04-21] MEDS: Piperacil/Tazobactam 3.375 GM in 0.9% Normal Saline (50mL MB+) 50 ML IV ×2 (17:37→22:23)
[2023-04-21] MEDS: Vancomycin HCl 1,500 MG in 0.9% Normal Saline (500mL Bag) 500 ML 250 MG IV (17:37)
[2023-04-21] MEDS: Gabapentin 100 MG Capsule 200 MG PO ×2 (17:50→20:48)
[2023-04-21] MEDS: Calcium Carb/Vitamin D 1 TABLET Tablet PO (17:50)
[2023-04-21] MEDS: Insulin Lispro 100 UNIT/ML INSULN.PEN SC (17:54)
--- NOTE | 2023-04-21 17:55 | ECHOD_ITS ---
Reason For Study: CHF Procedure This was a 2D Doppler, Color Flow transthoracic echocardiogram. Exam performed portable in patient room. Left Ventricle Normal LV size. Moderate concentric left ventricular hypertrophy. Left ventricular systolic function is normal. The estimated ejection fraction is 65 %. Stage 1 diastolic dysfunction. No regional wall motion abnormalities noted. Right Ventricle Normal RV size. Normal systolic function. Atria Normal left atrium. Normal right atrium. Mitral Valve There is mild to moderate mitral annular calcification. Mild (1+) eccentric mitral valve insufficiency. Tricuspid Valve Normal tricuspid valve. Mild (1+) tricuspid valve insufficiency. Pulmonary artery systolic pressure is 30 mmHg. Aortic Valve Trisinus/trileaflet aortic valve. Mild focal aortic valve calcification. Pulmonic Valve Normal pulmonic valve. Great Vessels Normal aortic root. The pulmonary artery is normal size. Inferior vena cava collapse with respiration. Pericardium/Pleural No pericardial effusion. MMode/2D Measurements & Calculations LVIDd: 3.1 cm IVSd: 1.6 cm Ao root diam: 3.2 cm LVIDs: 1.8 cm LVPWd: 1.2 cm LA dimension: 4.7 cm RVDd: 4.2 cm FS: 43.9 % LAV(MOD-bp): 62.8 ml LVAd ap4: 21.1 cm2 SV(MOD-sp4): 30.9 ml LAV(MOD-bp) Indexed: 32.6 ml/m2 LVLd ap4: 7.0 cm LAV(MOD-sp2): 65.2 ml EDV(MOD-sp4): 49.7 ml LAV(MOD-sp4): 57.5 ml EDV(sp4-el): 53.8 ml LVAs ap4: 11.9 cm2 LVLs ap4: 6.1 cm ESV(MOD-sp4): 18.8 ml ESV(sp4-el): 19.7 ml EF(MOD-sp4): 62.1 % EF(sp4-el): 63.4 % SV(sp4-el): 34.1 ml LA A4 area: 20.1 cm2 RA A4 area: 13.6 cm2 TAPSE: 2.8 cm Time Measurements MV dec time: 0.26 sec Doppler Measurements & Calculations MV E max rubio: 150.9 cm/sec Lat Peak E' Rubio: 12.4 cm/sec Med Peak E' Rubio: 8.5 cm/sec MV A max rubio: 187.8 cm/sec E/E' lat: 12.1 E/E' med: 17.8 MV E/A: 0.80 MV V2 max: 213.2 cm/sec MV P1/2t max rubio: 172.4 cm/sec Ao V2 max: 124.7 cm/sec MV max P.2 mmHg MV P1/2t: 95.8 msec Ao max P.2 mmHg MV V2 mean: 133.5 cm/sec MV dec slope: 526.9 cm/sec2 Ao V2 mean: 92.5 cm/sec MV mean P.4 mmHg Ao mean P.8 mmHg MV V2 VTI: 47.7 cm MVA(P1/2t): 2.3 cm2 Ao V2 VTI: 24.9 cm AV (velocity ratio): 1.1 LV V1 max: 118.1 cm/sec PA V2 max: 102.2 cm/sec TR max rubio: 264.2 cm/sec LV V1 max P.6 mmHg TR max P.9 mmHg LV V1 mean P.0 mmHg LV V1 mean: 81.6 cm/sec LV V1 VTI: 26.6 cm ECHO/Echo Complete Interpretation Summary Normal LV size. Moderate concentric left ventricular hypertrophy. Left ventricular systolic function is normal. The estimated ejection fraction is 65 %. Stage 1 diastolic dysfunction. Ordering Physician: Jessi Heath Performed By: Tony Ruano RCS
--- NOTE | 2023-04-21 18:12 | PCM.RX.CS ---
Consult Antibiotic Management Pharmacy has been consulted to manage selected antibiotic: Vancomycin Type of Intervention Type of Consult: New start Suspected Infection Suspected Infection: Pneumonia Labs Labs: Sodium 135 mmol/L (136-145) L 04/21/23 09:25 Potassium 3.5 mmol/L (3.5-5.1) 04/21/23 09:25 Chloride 100 mmol/L (98-107) 04/21/23 09:25 Carbon Dioxide 25.0 mmol/L (21.0-32.0) 04/21/23 09:25 Anion Gap 10 (5-15) 04/21/23 09:25 BUN 17 mg/dL (7-18) 04/21/23 09:25 Creatinine 1.21 mg/dL (0.55-1.02) H 04/21/23 09:25 Est GFR (MDRD) Af Amer 56 mL/min (>60) L 04/21/23 09:25 Est GFR (MDRD) Non-Af 46 mL/min (>60) L 04/21/23 09:25 BUN/Creatinine Ratio 14.0 RATIO (10-20) 04/21/23 09:25 Glucose 339 mg/dL (74-106) H 04/21/23 09:25 Microbiology Microbiology: Microbiology 04/21/23 09:50 Mucosa - Nose SARS-CoV-2, Influenza & RSV (PCR) - Final Goal Trough Goal Trough: 15-20 mcg/mL Pharmacy Plan for Drug Dosing Pharmacy Plan for Drug Dosing: NEW START IV VANCOMYCIN Consulting Physician: Dr. Heath Indication: Pneumonia Goal Trough: 15-20 SrCr: 1.21 CrCl: 43 mL/min Comments: Patient had initial dose of vancomycin 1500mg IV x1 ordered and administered 04/21/23 @1737 Vancomycin Dose: 750mg IV Q12hr to start 04/22/23 @0500 Pending Level: 04/23/23 @0430, prior to 4th total dose of vancomycin per protocol Pharmacy Service will continue to monitor and adjust dosing as required.
[2023-04-21] MEDS: Ipratropium/Albuterol Sulfate 3 ML AMPUL.NEB INHALATION ×2 (19:30→23:10)
[2023-04-21] MEDS: Dicyclomine 10 MG Capsule 20 MG PO (20:37)
[2023-04-21] MEDS: Memantine Hydrochloride 10 MG Tablet PO (20:38)
[2023-04-21] MEDS: Rosuvastatin 20 MG Tablet PO (20:38)
[2023-04-21] MEDS: levETIRAcetam 500 MG Tablet PO (20:39)
[2023-04-21] MEDS: Venlafaxine HCl 75 MG Tablet PO (20:39)
[2023-04-21] MEDS: guaiFENesin 1,200 MG Tablet 1200 MG PO (20:40)
[2023-04-21] MEDS: clonazePAM 0.5 MG Tablet PO (20:48)
[2023-04-21] MEDS: Insulin Glargine-YFGN 100 UNIT/ML Pen 16 UNIT SC (20:48)
[2023-04-21 21:26] LABS: Bedside Glucose 307 mg/dL (74-106)
[2023-04-21 21:42] LABS: Hemoglobin A1c 7.8 % (3.8-5.6)
[2023-04-22] VITALS (19 sets, daily range): BP systolic 111–139; BP diastolic 55–77; PULSE 96–107; RESP 18–22; TEMP 36.4–37.2; O2SAT 89–97
[2023-04-22] MEDS: Glycerin/Hypromellose/PEG400 15 ml Bottle 1 DRP EACH EYE ×5 (00:22→23:20)
[2023-04-22] MEDS: Ipratropium/Albuterol Sulfate 3 ML AMPUL.NEB INHALATION ×6 (03:40→22:57)
[2023-04-22] MEDS: Vancomycin HCl 750 MG in 0.9% Normal Saline (250mL Bag) 250 ML 250 MG IV ×2 (05:20→17:34)
[2023-04-22] MEDS: Piperacil/Tazobactam 3.375 GM in 0.9% Normal Saline (50mL MB+) 50 ML IV ×3 (05:20→23:50)
[2023-04-22] MEDS: Dicyclomine 10 MG Capsule 20 MG PO ×3 (05:25→23:19)
[2023-04-22] MEDS: Gabapentin 100 MG Capsule 200 MG PO ×3 (05:25→21:59)
[2023-04-22] MEDS: Insulin Lispro 100 UNIT/ML INSULN.PEN SC ×3 (06:42→16:19)
[2023-04-22 07:01] LABS: Bedside Glucose 291 mg/dL (74-106)
[2023-04-22 08:18] LABS: Absolute Lymphocyte Count 1.23 X10^3/uL (0.83-4.51); Absolute Neutrophil Count 18.5 X10^3/uL (2.0-7.7); Basophil# 0.04 X10^3/uL; Basophil% 0.2 % (0-1); Hematocrit 28.4 % (37-47); Hemoglobin 8.3 g/dL (12.0-15.0); Lymphocyte # 1.23 X10^3/ul (0.83-4.51); Lymphocyte % 6.1 % (19-41); Mean Corp Hgb Conc 29.2 g/dL (32-36); Mean Corpuscular Hgb 22.9 pg (27.0-32.0); Mean Corpuscular Volume 78.5 fL (81-99); Mean Platelet Vol. 10.5 fl (6.2-12.0); Monocyte# 0.21 X10^3/uL; NRBC Flagged by Analyzer 0 % (0-5); Neutrophil # 18.46 X10^3/uL (2.7-7.7); Neutrophil % 91.4 % (47-70); Platelet Count 292 K/mm3 (150-450); RBC Distribution Width CV 16.4 % (11.6-14.6); RBC Distribution Width SD 46.7 fl (35.1-43.9); Red Blood Count 3.62 M/mm3 (4.2-5.4); White Blood Count 20.2 K/mm3 (4.4-11.0)
[2023-04-22] MEDS: Magnesium Chloride 64 MG Delay Rel.Tablet 128 MG PO (09:00)
[2023-04-22] MEDS: Cholecalciferol (VIT D3) 25 MCG TABLET (1,000 UNITS) PO (09:00)
[2023-04-22] MEDS: Pantoprazole Sodium 40 MG Tablet PO (09:00)
[2023-04-22] MEDS: Aspirin 81 MG TAB.CHEW PO (09:00)
[2023-04-22] MEDS: Calcium Carb/Vitamin D 1 TABLET Tablet PO ×2 (09:00→17:35)
[2023-04-22] MEDS: Venlafaxine HCl 75 MG Tablet PO ×2 (09:01→22:03)
[2023-04-22] MEDS: Memantine Hydrochloride 10 MG Tablet PO ×2 (09:01→22:03)
[2023-04-22] MEDS: levETIRAcetam 500 MG Tablet PO ×2 (09:01→22:03)
[2023-04-22] MEDS: Enoxaparin 40 MG/0.4 ML Syringe SC (09:01)
[2023-04-22] MEDS: Vibegron 75 MG TABLET PO (09:01)
[2023-04-22] MEDS: guaiFENesin 1,200 MG Tablet 1200 MG PO ×2 (09:01→22:03)
[2023-04-22] MEDS: Insulin Glargine-YFGN 100 UNIT/ML Pen 36 UNIT SC (09:02)
[2023-04-22] MEDS: Fluticasone 0.05% 1 SPRAY NASAL.SRY 2 SPRAY NASAL (09:03)
[2023-04-22] MEDS: clonazePAM 0.5 MG Tablet PO ×2 (09:12→22:00)
[2023-04-22] MEDS: Azithromycin 500 MG in Dextrose 5%-Water (250mL Bag) 250 ML 250 MG IV (09:12)
[2023-04-22 09:16] LABS: ALB/GLOB Ratio 0.7 RATIO (0.9-2.4); AST(SGOT) 24 U/L (15-37); Alanine Aminotransfer ALT/SGPT 33 U/L (13-56); Albumin, Serum 2.7 g/dL (3.2-5.0); Alkaline Phosphatase 209 U/L (45-117); Anion Gap 10 (5-15); BUN 17 mg/dL (7-18); Calcium,Total 8.2 mg/dL (8.5-10.1); Chloride 105 mmol/L (98-107); EST Glomerular Filtration Rate 65 mL/min (>60); Est Glom Filt Rate - Afr Amer 79 mL/min (>60); Estimated Creatinine Clearance 56.63 ml/min; Globulin 4.1 g/dL (2.2-4.2); Glucose 290 mg/dL (74-106); Magnesium 1.6 mg/dL (1.6-2.6); Phosphorus 3.6 mg/dL (2.5-4.9); Potassium 4.2 mmol/L (3.5-5.1); Protein, Total 6.8 g/dL (6.4-8.2); Sodium Level 140 mmol/L (136-145); Thyroid Stim Hormone (TSH) 0.41 uIU/mL (0.358-3.74)
[2023-04-22] MEDS: Furosemide 40 MG/4 ML Vial IV (10:59)
--- NOTE | 2023-04-22 11:32 | CASEMGMT ---
Discharge Planning Updates faxed to [facility] and confirmation received. Hansa Lindsey, Discharge Planning Asst.
--- NOTE | 2023-04-22 11:40 | EX.PCM.CON.G ---
HPI Consult Data Date of Consult: 04/22/23 HPI Narrative Reason for Consultation: Anemia HPI Narrative: PETE SCHUMACHER, is a 78 F who presented to the emergency department at [facility] on 04/21/2023 from local assisted living due to worsening shortness of breath at rest and with exertion over the last 3 days. The patient states she has a mild cough which is new and productive of clear phlegm. She has had no recent travel or surgery and has a remote history of DVT with no history of PE and has never been anticoagulated. She does have a history of tobacco abuse and still smokes about 3 cigarettes a day. She was identified as having possible pneumonia versus chronic fibrosis with COPD. I was consulted to see her due to worsening anemia and intermittent abdominal pain. Chest x-ray showed mild to moderate bilateral lower lobe pneumonia and a CTA was performed due to her elevated D-dimer which demonstrated chronic mediastinal subcentimeter lymphadenopathy, hilar lymphadenopathy and diffuse interstitial thickening with groundglass edema in bilateral lungs as well as patchy infiltrates versus chronic fibrosis in the bilateral lung bases. Upon review her CT appears to be similar to CT done in 2022. She had no PE or arterial dissection. Rapid COVID/flu/RSV was unremarkable. She has continued to improve from a respiratory standpoint but still does have some abdominal pain. She takes an 81 mg aspirin on a daily basis. She also has a past medical history of diabetes mellitus and mild dementia. REPLACED BY [facility] Medical History Anxiety Arthritis Back pain Bladder disease Cardiology follow-up encounter COPD (chronic obstructive pulmonary disease) Dementia Depression Dietary restriction DVT (deep venous thrombosis) Gastric reflux High cholesterol History of echocardiogram History of edema History of hypotension History of pain when walking History of steroid therapy History of stress test Hx of diabetic neuropathy Injury of back Insulin dependent diabetes mellitus Leg cramps Loss of consciousness Low iron Microcytic anemia Restless legs Seizures Shortness of breath on exertion Smoker Stroke/cerebrovascular accident Syncope Uses wheelchair Wears dentures Wears glasses Home Medications aspirin 81 mg chewable tablet 81 mg PO DAILY@0800 heart health 03/09/13 [History Last Taken 04/21/23] gabapentin 100 mg capsule 200 mg PO TID neuropathy 03/09/13 [History Last Taken 04/21/23] clonazepam 0.5 mg tablet 0.5 mg PO BID 10/19/13 [History Last Taken 04/21/23] venlafaxine 75 mg tablet 75 mg PO BID depression 10/19/13 [History Last Taken 04/21/23] albuterol sulfate 90 mcg/actuation aerosol inhaler (Ventolin HFA) 1 puff inhalation Q4H PRN Wheezing 01/03/14 [History Last Taken 05/14/14] cholecalciferol (vitamin D3) 25 mcg (1,000 unit) tablet (Vitamin D3) 25 mcg PO DAILY supplement 01/06/17 [History Last Taken 04/21/23] rosuvastatin 20 mg tablet (Crestor) 20 mg PO QHS cholesterol 01/06/17 [History Last Taken 04/20/23] insulin glargine 100 unit/mL (3 mL) subcutaneous pen (Lantus Solostar U-100 Insulin) 16 unit subcut QHS 10/22/20 [History Last Taken 04/20/23] insulin glargine 100 unit/mL (3 mL) subcutaneous pen (Lantus Solostar U-100 Insulin) 36 unit subcut DAILY 10/22/20 [History Last Taken 04/20/23] insulin lispro 200 unit/mL (3 mL) subcutaneous pen (Humalog KwikPen U-200 Insulin) See Protocol subcut TID sliding scale 10/22/20 [History Last Taken 04/20/23] levetiracetam 500 mg tablet 500 mg PO BID 10/22/20 [History Last Taken 04/21/23] magnesium oxide 400 mg PO DAILY 10/22/20 [History Last Taken 04/21/23] artificial tears(hypromellose) 0.3 % eye gel (Systane Gel) 1 drp EACH EYE Q6H 12/05/22 [History Last Taken 04/21/23] fluticasone propionate 50 mcg/actuation nasal spray,suspension 2 spray intranasal DAILY 12/05/22 [History Last Taken 04/21/23] guaifenesin 1,200 mg tablet, extended release 12 hr (Mucus Relief ER) 1,200 mg PO BID 12/05/22 [History Last Taken 04/11/23] vibegron 75 mg tablet (Gemtesa) 75 mg PO DAILY 12/05/22 [History Last Taken 04/21/23] acetaminophen 500 mg tablet 1,000 mg PO Q8H PRN Pain 04/21/23 [History Last Taken 04/20/23] albuterol sulfate 2.5 mg/3 mL (0.083 %) solution for nebulization 2.5 mg inhalation Q6H PRN shortness of breath or wheezing 04/21/23 [History Last Taken Unknown] alendronate 70 mg tablet 70 mg PO FR 04/21/23 [History Last Taken 04/16/23] calcium carbonate 500 mg-vitamin D3 5 mcg (200 unit) tablet (Oyster Shell Calcium-Vitamin D3) 1 tab PO BIDCM 04/21/23 [History Last Taken 04/21/23] dicyclomine 20 mg tablet 20 mg PO TID 04/21/23 [History Last Taken 04/21/23] dulaglutide 0.75 mg/0.5 mL subcutaneous pen injector (Trulicity) 0.75 mg subcut MO 04/21/23 [History Last Taken 04/19/23] fluticasone furoate 100 mcg-vilanterol 25 mcg/dose inhalation powder (Breo Ellipta) 1 ea inhalation DAILY 04/21/23 [History Last Taken 04/20/23] memantine 10 mg tablet 10 mg PO BID 04/21/23 [History Last Taken Unknown] metformin 1,000 mg tablet 1,000 mg PO BID 04/21/23 [History Last Taken 04/21/23] omeprazole 40 mg capsule,delayed release 40 mg PO DAILY 04/21/23 [History Last Taken 04/21/23] peg 400-propylene glycol 0.4 %-0.3 % eye gel drops (Systane Gel) 1 drp ophthalmic (eye) 4X/DAY 04/21/23 [History Last Taken 04/21/23] Allergy/AdvReac Type Severity Reaction Status Date / Time atorvastatin calcium Allergy Unknown Verified 04/21/23 08:57 [From Lipitor] ibuprofen [From Motrin] Allergy Unknown Verified 04/21/23 08:57 Family History Mother Heart disease Hypertension Myocardial infarction Diabetes Father Heart disease Hypertension Myocardial infarction Surgical History History of angioplasty of peripheral vessel History of esophagogastroduodenoscopy (EGD) Hx laparoscopic cholecystectomy Hx of breast biopsy Hx of cataract extraction Hx of colonoscopy Social History household members: none housing: assisted living facility Smoking Status: Light Smoker (<10/day) alcohol intake: never substance use type: does not use ROS Constitutional Constitutional: Reports fatigue and weakness; Denies anorexia, change in weight, chills, fever(s), malaise, night sweats or other Eyes Eyes: Denies blurry vision, change in eye color, change in vision, discharge from eye(s), double vision, erythema, eye pain, loss of vision or other ENT HEENT: Reports abnormal hearing and hearing loss; Denies dysphagia, ear pain, epistaxis, headache(s), nasal congestion, nasal discharge, post nasal drip, sinus pressure, sore throat or other Cardiovascular Cardiovascular: Reports chest pain, dyspnea on exertion and edema; Denies claudication, lightheadedness, orthopnea, palpitations, paroxysmal nocturnal dyspnea, rapid heart rate, syncope or other Respiratory/Chest Respiratory/Chest: Reports cough, dyspnea, shortness of breath at rest and shortness of breath with exertion Gastrointestinal Gastrointestinal: Denies abdominal pain, coffee ground emesis, constipation, diarrhea, dyspepsia, hematemesis, hematochezia, loose stools, melena, nausea, vomiting or other Genitourinary Genitourinary: Reports urinary incontinence; Denies burning urination, difficulty urinating, dysuria, hematuria, nocturia, urinary frequency, urinary hesitancy, urinary urgency or other Musculoskeletal Musculoskeletal: Denies arthralgias, back pain, joint pain, joint stiffness, joint swelling, myalgias, neck pain or other Neurologic Neurologic: Denies abnormal gait, abnormal speech, confusion, disequilibrium, dizziness, focal weakness, headache(s), numbness, paresthesias, seizure-like activity, seizures, syncope, tingling, tremor(s) or other Psychiatric Psychiatric: Denies anxiety, depression, homicidal ideation, suicidal ideation or other Endocrine Endocrinology: Denies change in body appearance, cold intolerance, excessive sweating, heat intolerance, polydipsia, polyuria or other Hematologic/Lymphatic Hematologic/Lymphatic: Denies anemia, easy bleeding, easy bruising, lymphadenopathy or other Allergic/Immunologic Allergic/Immunologic: Denies rhinitis, hives, eczemia, asthma or other Physical Exam Const alert, oriented x3, no apparent distress and well nourished General Appearance: cooperative HEENT normocephalic, head/scalp atraumatic and moist oral mucous membranes Eyes PERRL and EOMs intact bilaterally Eyes Narrative: Mild conjunctival pallor with no scleral icterus Neck full ROM, no lymphadenopathy and supple Neck Narrative: Trachea midline General: trachea midline Resp normal respiratory effort, no retractions and no use of accessory muscles Auscultation: wheezes; Negative for rales or rhonchi Cardio regular rate, regular rhythm, S1 normal heart sound, S2 normal heart sound, no murmurs, no rub, no gallops and no clicks GI normal to inspection, nondistended, normoactive bowel sounds, soft to palpation and non-tender Extremity no clubbing, cyanosis or edema Extremity Narrative: Feet elevated, but no edema noted Neuro oriented x3, moves all extremities and no focal motor deficits Speech: speech normal Psych affect normal Psych Narrative: Very pleasant, eye contact is good, patient interacts appropriately Lab / Micro Data 04/23/23 04:34 04/23/23 04:34 Labs: Laboratory Results - last 24 hr 04/22/23 11:49: POC Glucose 429 H 04/22/23 15:30: MRSA (PCR) Negative 04/22/23 16:18: POC Glucose 383 H 04/23/23 04:34: WBC 21.1 H, RBC 3.52 L, Hgb 8.3 L, Hct 27.7 L, MCV 78.7 L, MCH 23.6 L, MCHC 30.0 L, RDW Std Deviation 46.7 H, RDW Coeff of Fadumo 16.5 H, Plt Count 298, MPV 10.3, Immature Gran % (Auto) 1.900 H, Neut % (Auto) 87.5 H, Lymph % (Auto) 7.3 L, [place] % (Auto) 3.2, Eos % (Auto) 0.0, Baso % (Auto) 0.1, Absolute Neuts (auto) 18.4 H, Absolute Lymphs (auto) 1.53, Nucleated RBC % 0, Sodium 140, Potassium 4.4, Chloride 103, Carbon Dioxide 29.0, Anion Gap 8, BUN 26 H, Creatinine 1.19 H, Estim Creat Clear Calc 42.83, Est GFR (MDRD) Af Amer 57 L, Est GFR (MDRD) Non-Af 47 L, BUN/Creatinine Ratio 21.8 H, Glucose 442 H, Calcium 8.8, Vancomycin Trough 13.3 04/23/23 06:28: POC Glucose 407 H Micro: Microbiology 04/22/23 10:40 Sputum, Expectorated/Coughed Gram Stain - Final 04/22/23 10:40 Sputum, Expectorated/Coughed Respiratory Culture - Preliminary Appears to be normal respiratory светлана. Further studies to follow. 04/21/23 10:29 Blood Culture (Wb) #2 - Right Wrist Blood Culture - Preliminary No growth in 48 hours. 04/21/23 09:25 Blood Culture (Wb) - Left Hand Blood Culture - Preliminary No growth in 48 hours. 04/22/23 21:50 Stool Stool Occult Blood (ANAMARIA) - Final Imaging Radiology Impression Echocardiogram 04/21/23 17:55 Interpretation Summary Normal LV size. Moderate concentric left ventricular hypertrophy. Left ventricular systolic function is normal. The estimated ejection fraction is 65 %. Stage 1 diastolic dysfunction. Ordering Physician: Jessi Heath Performed By: Tony Ruano RCS Assessment & Plan Assessment/Plan (1) Pneumonia of both lower lobes: (2) Hypoxemia: PLAN: Plan The patient is a 77 y/o F with past medical history of CKD stage III , Hx CVA, HLD, Dementia unclear type with unclear behavioral disturbance history, Anxiety and Depression, Diabetes mellitus type II with chronic neuropathy, Chronic anemia, Hx VTE, who presents to the [facility] ED with worsening shortness of breath, cough and was discovered to have significant iron deficiency anemia. #1. Patient currently being seen by pulmonology and primary team for possible pneumonia versus bronchiectasis with pulmonary fibrosis. She is stable from a respiratory standpoint. #2. Chronic anemia, MCV currently microcytic. It is not known she has had any GI evaluation in the past including colonoscopy. She is a smoker so that increase her risk of malignancy. Differential diagnosis does include peptic ulcer disease, celiac disease, gastritis, H. pylori associated inflammation involving upper GI tract. She should undergo an upper endoscopy and if negative she may need to have a colonoscopy inpatient or outpatient. She was explained alternatives, risk, benefits including outstanding bleeding, infection, sepsis, perforation, need for emergent surgery and . She will an ASA of 3. Charges/Coding Visit Charges Inpatient E&M: 29707 Init Hosp L3
[2023-04-22 12:26] LABS: Bedside Glucose 429 mg/dL (74-106)
--- NOTE | 2023-04-22 15:16 | PCM.PN.HOSP ---
Reason for Visit Reason for Visit: Shortness of breath Subjective Subjective Patient states she definitely is feeling better today, but patient states she is has not been out of bed yet. Family states she sounds and looks better since yesterday. Family states she had been complaining of leg pain that was her whole legs. Upon questioning today she states the leg pain has resolved. Objective Data Objective Data Vital Signs: Vital Signs Temp Pulse Resp BP Pulse Ox O2 Del Method O2 Flow Rate 98.3 F 97 18 137/77 H 94 Room Air 2 04/22/23 09:00 04/22/23 11:25 04/22/23 11:25 04/22/23 09:00 04/22/23 12:00 04/22/23 09:00 04/22/23 12:00 Oxygen Flow Rate (L/min) 2 Oxygen Delivery Method Room Air Weight: 90.038 kg Body Mass Index (BMI) 35.2 Intake & Output: Intake and Output for Last 24 Hours 04/20/23 04/21/23 04/22/23 23:59 23:59 23:59 Intake Total 2585 / 2885 1820 / 1820 Balance 2585 / 2885 1820 / 1820 Lab / Micro Data 04/22/23 06:41 04/22/23 06:41 Labs: Laboratory Results - last 24 hr 04/21/23 15:00: Lactic Acid 2.3 H* 04/21/23 16:51: POC Glucose 179 H 04/21/23 20:51: POC Glucose 307 H 04/21/23 21:10: Hemoglobin A1c 7.8 H 04/22/23 06:41: WBC 20.2 H, RBC 3.62 L, Hgb 8.3 L, Hct 28.4 L, MCV 78.5 L, MCH 22.9 L, MCHC 29.2 L, RDW Std Deviation 46.7 H, RDW Coeff of Fadumo 16.4 H, Plt Count 292, MPV 10.5, Immature Gran % (Auto) 1.300 H, Neut % (Auto) 91.4 H, Lymph % (Auto) 6.1 L, [place] % (Auto) 1.0, Eos % (Auto) 0.0, Baso % (Auto) 0.2, Absolute Neuts (auto) 18.5 H, Absolute Lymphs (auto) 1.23, Nucleated RBC % 0, Sodium 140, Potassium 4.2, Chloride 105, Carbon Dioxide 25.0, Anion Gap 10, BUN 17, Creatinine 0.90, Estim Creat Clear Calc 56.63, Est GFR (MDRD) Af Amer 79, Est GFR (MDRD) Non-Af 65, BUN/Creatinine Ratio 19.0, Glucose 290 H, Calcium 8.2 L, Phosphorus 3.6, Magnesium 1.6, Total Bilirubin 0.30, AST 24, ALT 33, Alkaline Phosphatase 209 H, Total Protein 6.8, Albumin 2.7 L, Globulin 4.1, Albumin/Globulin Ratio 0.7 L, TSH 0.41, POC Glucose 291 H 04/22/23 11:49: POC Glucose 429 H Micro: Microbiology 04/22/23 10:40 Sputum, Expectorated/Coughed Gram Stain - Final 04/21/23 16:15 Mucosa - Nasopharyngeal Respiratory Panel (PCR) - Final 04/21/23 19:30 Urine, Random Legionella Antigen - Final 04/21/23 19:30 Urine, Random Streptococcus pneumoniae Antigen (M - Final 04/21/23 09:50 Mucosa - Nose SARS-CoV-2, Influenza & RSV (PCR) - Final Radiography Diagnostic Testing: Radiology Impression Chest X-Ray 04/21/23 09:15 IMPRESSION: 1. Mild to moderate bilateral lower lobe pneumonia Electronically Signed: Loc Ching MD at 10:19 EDT , Chest CTA 04/21/23 09:59 IMPRESSION: 1. Redemonstration of chronic mediastinal reactive subcentimeter lymphadenopathy. The hilar adenopathy is also stable/unchanged. Redemonstration of diffuse interstitial thickening with groundglass edema throughout both lungs as well as mild patchy infiltrates versus chronic fibrosis in the bilateral lung bases. The process appears similar to what was seen on November 2022 exam likely due to acute on chronic disease/exacerbation. Underlying interstitial lung disease with superimposed acute pneumonitis is suspected 2. No pulmonary embolism or arterial dissection. Electronically Signed: Loc Ching MD at 12:01 EDT , Physical Exam Const alert, oriented x3, no apparent distress and well nourished; Negative for average body habitus or healthy appearing Constitutional Narrative: Morbidly obese, older, white female, lying in bed, family is at bedside, patient appears comfortable and nontoxic, breathing appears much more comfortable today and no conversational dyspnea noted General Appearance: cooperative HEENT normocephalic, head/scalp atraumatic and moist oral mucous membranes HEENT Narrative: Dentition is poor, Mallampati is 3, no thrush Eyes PERRL and EOMs intact bilaterally Eyes Narrative: Mild conjunctival pallor with no scleral icterus Neck no lymphadenopathy and supple Neck Narrative: Trachea midline, no thyroid enlargement Resp normal respiratory effort, no retractions, no use of accessory muscles and No clear to auscultation bilaterally Resp Narrative: Much more comfortable breathing today, still with scattered wheezes, rhonchi have resolved, tachypnea has resolved Auscultation: wheezes; Negative for rales or rhonchi Cardio regular rate, regular rhythm, S1 normal heart sound, S2 normal heart sound, no murmurs, no rub, no gallops and no clicks GI normal to inspection, nondistended, normoactive bowel sounds, soft to palpation and non-tender Extremity no clubbing, cyanosis or edema Extremity Narrative: Trace bilateral lower extremity edema, no cyanosis or clubbing Skin no wounds, no jaundice and no petechiae Neuro oriented x3, moves all extremities and no focal motor deficits Speech: speech normal Psych affect normal Psych Narrative: Very pleasant, eye contact is good, patient interacts appropriately Assessment & Plan Assessment/Plan (1) Acidosis, lactic: (2) Pneumonia: (3) Hypoxia: (4) Elevated serum creatinine: (5) Hyperglycemia: (6) Leukocytosis: (7) Elevated d-dimer: PLAN: Plan Acute hypoxic respiratory failure secondary to suspected pneumonia viral versus bacterial -Patient with tachycardia, tachypnea, and hypoxia -Was uptitrated to 3 L at maximum but now down to 2 L and weaning throughout the day -CT is overall unchanged but respiratory status is worse -Sputum culture was obtained and pending -Strep pneumo and Legionella antigens are negative -Respiratory viral panel was unremarkable -Will discontinue azithromycin with a negative Legionella antigen and continue Zosyn and vancomycin for now -MRSA PCR remains pending so we will continue Vanco for now -Aggressive pulmonary toilet -I-S and incentive spirometry -Continue IV steroids 40 every 8 with plan to taper at discharge -BNP is mildly elevated however patient does not appear to be in fulminant failure however will check echocardiogram as her last one was 4 years ago--> EF was 60% at that time -Echocardiogram remains pending -Will make pulmonary referral at discharge Elevated D-dimer -CTA was negative for PE Microcytic anemia secondary to iron deficiency -Hemoglobin has slowly been trending down -Iron studies appear to be consistent with blood loss anemia -Guaiac is pending -Start IV Protonix every 12 hours -Stop oral Protonix -IV iron 200 mg IV x 3 days if she is here if not we will transition to iron tablets -Will consult GI for consideration of EGD -Repeat CBC in a.m. Lactic acidosis -Resolved DM-2 with hyperglycemia -Hold home metformin -Blood sugars up so we will uptitrate basal insulin some and continue sliding scale -Elevation is related to steroid use -Continue subcu insulin -SSI -A1c was 7.4 -Acute elevation may be due to the above Elevated serum creatinine -Resolved. History of dementia -Continue home medication Generalized weakness/debility -PT/OT following -Case management/social work consultation for assistance with discharge planning -Patient is currently in assisted living History of DVT -Patient is not anticoagulated History of stroke -Patient with some mild right hand and foot weakness -Continue baby aspirin -Uses a wheeled walker at baseline -Continue modification of secondary risk factors Hyperlipidemia -Continue statin GERD -Continue PPI Seizure disorder -Continue home Keppra Anxiety/depression -Continue home medication regimen with venlafaxine, Zyprexa and clonazepam DVT prophylaxis -Subcu Lovenox CODE STATUS -DNR CCA with no intubation as per discussion on admission Charges/Coding Visit Charges Inpatient E&M: 51061 [facility] Hosp L3
--- NOTE | 2023-04-22 15:18 | CASEMGMT ---
Social Work SW met with pt and son to discuss advance directives. HCPOA is on file naming pt's son Ferdinand Vanessa. Living will is not on file. SW requested it be brought in for scanning into medical record. YULISSA Ingram
--- NOTE | 2023-04-22 15:31 | CASEMGMT ---
Social Work SW met with pt, pt's son Velia and dgt Ami. Pt is admitted from [facility] [place][Note 2]. Pt was able to ambulate independently while at [facility]. She did receive geriatric nursing assistant with showers and IADLs from the staff. Pt plans to return to [facility] upon discharge from the hospital. SW will continue to follow for dc planning. Plan: Return to [facility], when medically ready YULISSA Ingram
[2023-04-22 16:53] LABS: Bedside Glucose 383 mg/dL (74-106)
[2023-04-22 17:35] LABS: M R Staph aureus DNA By PCR Negative (Negative); Probe Check PASS; Specimen Processing Control PASS
[2023-04-22] MEDS: Sodium Ferric Gluconat/Sucrose 250 MG in 0.9% Normal Saline (250mL Bag) 250 ML 135 MG IV (20:11)
[2023-04-22] MEDS: Insulin Glargine-YFGN 100 UNIT/ML Pen 20 UNIT SC (22:09)
[2023-04-22] MEDS: Rosuvastatin 20 MG Tablet PO (22:10)
[2023-04-22] MEDS: Pantoprazole Sodium 40 MG in 0.9% Normal Saline (100mL MB+) 100 ML 330 MG IV (23:18)
[2023-04-23] VITALS (22 sets, daily range): BP systolic 104–158; BP diastolic 56–82; PULSE 86–100; RESP 16–28; TEMP 36.2–36.9; O2SAT 89–99
--- NOTE | 2023-04-23 | EGD_PTH ---
PATIENT: PETE SCHUMACHER LOC: MS3 U#:[id number] AGE/SX: 78/F ROOM: [facility] RE04/21/[address]: Dr. Pablo Salas DO : 1945 BED: 1 DIS: 04/26/2023 SPEC #: [id number] RECD: 04/23/23 13:18 STATUS: DOMI REQ #: [id number] TIA: 04/23/23 00:[address]: Pablo Salas DEPT: SURGICAL PATHOLOGY RECD BY: Dwight Vasques ENTERED: 04/26/23 10:35 SP TYPE: EGD BIOPSY OTHR DR: MD Dr. Haseeb Bell MD Dr. Derek Brown, MD Dr. Yola Morrell Dr., MD Dr. Hemant Dand, MD Dr. Kimber Foust, MD Dr. Kathryn Lee, MD Dr. Everardo Sandhu Dr., MD Dr. Rahsaan Friend, DO MD Dr. Mert Persaud MD Dr. Victor Velasquez, MD Dr. William Haden, MD Tissues: Duodenum, NOS Procedures: Surgery Specimen Level IV HEADER OPERATION: EGD with biopsy PRE-OP DIAGNOSIS: Anemia TISSUE SUBMITTED: Duodenum biopsy MICROSCOPIC DIAGNOSIS Duodenum biopsy; No pathologic change. /mr 04/27/23 MICROSCOPIC DESCRIPTION Slides are reviewed. GROSS DESCRIPTION Received in fixative is one container labeled with the patient's name and designated Duodenum biopsy. The specimen consists of multiple irregular fragments of light [place] soft tissue that in aggregate measure 0.6 x 0.5 x 0.1 cm. The specimen is totally submitted in one cassette. / 04/26/23 TC:5 CPT: 41745
[2023-04-23] MEDS: Ipratropium/Albuterol Sulfate 3 ML AMPUL.NEB INHALATION ×4 (02:37→19:48)
--- NOTE | 2023-04-23 02:42 | NURSING ---
RN went in to check blood sugar as it was high earlier this shift. Patient said my blood sugar is fine and pulled finger away. RN reminded patient that her sugar was high, and she said I know, but it's fine. Rn will attempt to check later in am.
[2023-04-23 04:46] LABS: Absolute Lymphocyte Count 1.53 X10^3/uL (0.83-4.51); Absolute Neutrophil Count 18.4 X10^3/uL (2.0-7.7); Basophil# 0.02 X10^3/uL; Basophil% 0.1 % (0-1); Hematocrit 27.7 % (37-47); Hemoglobin 8.3 g/dL (12.0-15.0); Lymphocyte # 1.53 X10^3/ul (0.83-4.51); Lymphocyte % 7.3 % (19-41); Mean Corpuscular Hgb 23.6 pg (27.0-32.0); Mean Corpuscular Volume 78.7 fL (81-99); Mean Platelet Vol. 10.3 fl (6.2-12.0); Monocyte# 0.68 X10^3/uL; Monocyte% 3.2 % (0-10); NRBC Flagged by Analyzer 0 % (0-5); Neutrophil # 18.43 X10^3/uL (2.7-7.7); Neutrophil % 87.5 % (47-70); Platelet Count 298 K/mm3 (150-450); RBC Distribution Width CV 16.5 % (11.6-14.6); RBC Distribution Width SD 46.7 fl (35.1-43.9); Red Blood Count 3.52 M/mm3 (4.2-5.4); White Blood Count 21.1 K/mm3 (4.4-11.0)
[2023-04-23 05:01] LABS: Anion Gap 8 (5-15); BUN 26 mg/dL (7-18); BUN/Creat Ratio 21.8 RATIO (10-20); Calcium,Total 8.8 mg/dL (8.5-10.1); Chloride 103 mmol/L (98-107); Creatinine, Serum 1.19 mg/dL (0.55-1.02); EST Glomerular Filtration Rate 47 mL/min (>60); Est Glom Filt Rate - Afr Amer 57 mL/min (>60); Estimated Creatinine Clearance 42.83 ml/min; Glucose 442 mg/dL (74-106); Potassium 4.4 mmol/L (3.5-5.1); Sodium Level 140 mmol/L (136-145)
[2023-04-23 05:04] LABS: Vancomycin, Trough Level 13.3 ug/mL (5.0-15.0)
--- NOTE | 2023-04-23 05:12 | PCM.RX.CS ---
Consult Antibiotic Management Pharmacy has been consulted to manage selected antibiotic: Vancomycin Type of Intervention Type of Consult: Follow-up Suspected Infection Suspected Infection: Pneumonia Labs Labs: Sodium 140 mmol/L (136-145) 04/23/23 04:34 Potassium 4.4 mmol/L (3.5-5.1) 04/23/23 04:34 Chloride 103 mmol/L (98-107) 04/23/23 04:34 Carbon Dioxide 29.0 mmol/L (21.0-32.0) 04/23/23 04:34 Anion Gap 8 (5-15) 04/23/23 04:34 BUN 26 mg/dL (7-18) H 04/23/23 04:34 Creatinine 1.19 mg/dL (0.55-1.02) H 04/23/23 04:34 Est GFR (MDRD) Af Amer 57 mL/min (>60) L 04/23/23 04:34 Est GFR (MDRD) Non-Af 47 mL/min (>60) L 04/23/23 04:34 BUN/Creatinine Ratio 21.8 RATIO (10-20) H 04/23/23 04:34 Glucose 442 mg/dL (74-106) H 04/23/23 04:34 Vancomycin Trough 13.3 ug/mL (5.0-15.0) 04/23/23 04:34 Microbiology Microbiology: Microbiology 04/22/23 21:50 Stool Stool Occult Blood (ANAMARIA) - Final 04/22/23 10:40 Sputum, Expectorated/Coughed Gram Stain - Final 04/21/23 16:15 Mucosa - Nasopharyngeal Respiratory Panel (PCR) - Final 04/21/23 19:30 Urine, Random Legionella Antigen - Final 04/21/23 19:30 Urine, Random Streptococcus pneumoniae Antigen (M - Final 04/21/23 09:50 Mucosa - Nose SARS-CoV-2, Influenza & RSV (PCR) - Final Dosing Weight Weight used for dosin kg Estimated Creatinine Clearance Estimated Creatinine Clearance: 43 Goal Trough Goal Trough: 15-20 mcg/mL Pharmacy Plan for Drug Dosing Pharmacy Plan for Drug Dosing: Vancomycin trough level of 13.3, drawn 11 hours post-dose, was below the target range of 15-20. Dose will be increased to 1000mg q12h, and another trough will be drawn in four doses. Pharmacy Service will continue to monitor and adjust dosing as required. Follow-Up Labs Follow-Up Labs: Trough: Vancomycin Date/Time Labs Ordered Labs to be done on [date and time ordered]: 04/24/23 @0387
[2023-04-23] MEDS: Vancomycin Trough/Random Due 1 LAB MC (05:13)
[2023-04-23] MEDS: Vancomycin IV 1,000 MG/200 ML BAG 200 MG IV ×2 (05:13→17:08)
[2023-04-23] MEDS: Piperacil/Tazobactam 3.375 GM in 0.9% Normal Saline (50mL MB+) 50 ML IV (06:17)
[2023-04-23] MEDS: Glycerin/Hypromellose/PEG400 15 ml Bottle 1 DRP EACH EYE ×4 (06:17→23:45)
[2023-04-23] MEDS: Alendronate Sodium 70 MG Tablet PO (06:17)
[2023-04-23] MEDS: Dicyclomine 10 MG Capsule 20 MG PO ×3 (06:17→20:50)
[2023-04-23] MEDS: Gabapentin 100 MG Capsule 200 MG PO ×3 (06:17→20:50)
[2023-04-23] MEDS: Insulin Lispro 100 UNIT/ML INSULN.PEN SC ×3 (06:28→16:23)
[2023-04-23 07:18] LABS: Bedside Glucose 407 mg/dL (74-106)
--- NOTE | 2023-04-23 10:29 | CASEMGMT ---
RN CM into pt room to discuss dc planning, pt ready to be taken down for a procedure. RN CM to check back.
--- NOTE | 2023-04-23 10:57 | EX.PCM.CONCC ---
Assessment & Plan Assessment/Plan (1) Pneumonia: QUALIFIERS: Pneumonia type: due to unspecified organism Laterality: bilateral Lung location: lower lobe of lung Qualified Code(s): J18.9 - Pneumonia, unspecified organism (2) Hypoxia: (3) Aspiration pneumonia: QUALIFIERS: Aspiration pneumonia type: unspecified Laterality: unspecified laterality Lung location: unspecified part of lung Qualified Code(s): J69.0 - Pneumonitis due to inhalation of food and vomit (4) Bronchiectasis: QUALIFIERS: Bronchiectasis type: with acute exacerbation Qualified Code(s): J47.1 - Bronchiectasis with (acute) exacerbation PLAN: Plan RECOMMENDATIONS: 1. Continue empiric antibiotics and steroids 2. Continue Acapella. This should be continued at least twice daily on discharge 3. Swallow evaluation for possible aspiration 4. Walking oximetry prior to discharge 5. Repeat CT scan in 4 to 6 weeks 6. Close follow-up with reinforced concrete inspector as an outpatient IMPRESSIONS: 1. Acute hypoxic respiratory insufficiency in the setting of bronchiectasis and possible pulmonary fibrosis Patient does have significant bronchiectatic changes noted on CT scan of the chest. Patient has multiple thickened areas of parenchyma making it difficult to assess for fibrosis versus pulmonary edema. Infectious workup has been relatively unimpressive. Patient may have an element of aspiration as son reports choking with drinking water quickly. Patient would benefit from an outpatient CT scan in 4 to 6 weeks to see if lung nodule is still present. Patient will need close follow-up with reinforced concrete inspector. If patient is verified to have rheumatoid arthritis, NSIP would also be a consideration. 2. Microcytic anemia with iron deficiency and possible GI bleed Patient is no longer menstruating, but does have significant anemia. Gastroenterology has been consulted for possible evaluation. Patient gives a variable story of abdominal pain 3. Diabetes mellitus type 2/dementia/debility/history of CVA/seizure disorder/anxiety/depression/advanced age/tobacco abuse Complicates care, management, recovery and prognosis. Will need to be aggressive with insulin therapy given the need for steroids secondary to problem #1. Okay to continue other medications from my perspective. Low clinical suspicion for pulmonary embolism as an etiology. Patient was counseled on the importance of complete smoking cessation to avoid progression of disease HPI Consult Data Date of Consult: 04/23/23 HPI Narrative Reason for Consultation: Hypoxia/abnormal PFT HPI Narrative: PETE SCHUMACHER is a 78 F, with past medical history listed below, who presents to [facility] on 04/21/2023 secondary to progressive shortness of breath. Patient reportedly has not felt well for 3 days prior to presentation and had been coughing up some white phlegm. Patient had denied any fever, but felt that she had worsening shortness of breath with exertion. Patient did have a history of DVT in the past, but has not had recent anticoagulation. Patient had thought she had some increase in lower extremity edema, but did not report any change in weight. In the ER, patient was afebrile, but tachycardic at 112 bpm. Patient was initially on room air, but then transitioned to nasal cannula secondary to hypoxia. Laboratory data showed a white blood cell count of 23.4, hemoglobin of 8.9 and platelets of 272. Patient did have a left shift and a D-dimer of 2.38. Creatinine was slightly elevated at 1.2 along with a lactate of 3.2 and a glucose of 339. BNP was slightly elevated at 106. Chest x-ray showed bilateral infiltrates. Patient was given Rocephin and Zithromax and admitted to the floor for further evaluation. Since being on the floor, patient feels subjectively slightly improved compared to previous. Patient is still requiring supplemental oxygen to maintain saturations. Patient does have some bedside family members that were able to add to her history. Patient reportedly follows with Dr. Sanders at the [facility] at baseline. Patient states that she knows that she should be using her Acapella twice daily, but states that she rarely uses it. Patient also tends to smoke between 6 and 8 cigarettes/day. Patient believes that she has COPD, but is never been told about interstitial lung disease. Patient does state that she has a diagnosis of rheumatoid arthritis. Patient's son reports that she tends to eat quickly and cough. Patient's son also reports that she has had a nodule approximately 2 years ago and was sent to [facility] for possible biopsy. This was never completed. Patient reportedly does get mammograms and routine screenings. Review of systems otherwise negative from a constitutional, HEENT, respiratory, cardiovascular, GI, genitourinary, musculoskeletal, skin, neurologic, psychiatric and hematologic system unless stated above. [facility] Medical History Anxiety Arthritis Back pain Bladder disease Cardiology follow-up encounter COPD (chronic obstructive pulmonary disease) Dementia Depression Dietary restriction DVT (deep venous thrombosis) Gastric reflux High cholesterol History of echocardiogram History of edema History of hypotension History of pain when walking History of steroid therapy History of stress test Hx of diabetic neuropathy Injury of back Insulin dependent diabetes mellitus Leg cramps Loss of consciousness Low iron Microcytic anemia Restless legs Seizures Shortness of breath on exertion Smoker Stroke/cerebrovascular accident Syncope Uses wheelchair Wears dentures Wears glasses Home Medications aspirin 81 mg chewable tablet 81 mg PO DAILY@0800 heart health 03/09/13 [History Last Taken 04/21/23] gabapentin 100 mg capsule 200 mg PO TID neuropathy 03/09/13 [History Last Taken 04/21/23] clonazepam 0.5 mg tablet 0.5 mg PO BID 10/19/13 [History Last Taken 04/21/23] venlafaxine 75 mg tablet 75 mg PO BID depression 10/19/13 [History Last Taken 04/21/23] albuterol sulfate 90 mcg/actuation aerosol inhaler (Ventolin HFA) 1 puff inhalation Q4H PRN Wheezing 01/03/14 [History Last Taken 05/14/14] cholecalciferol (vitamin D3) 25 mcg (1,000 unit) tablet (Vitamin D3) 25 mcg PO DAILY supplement 01/06/17 [History Last Taken 04/21/23] rosuvastatin 20 mg tablet (Crestor) 20 mg PO QHS cholesterol 01/06/17 [History Last Taken 04/20/23] insulin glargine 100 unit/mL (3 mL) subcutaneous pen (Lantus Solostar U-100 Insulin) 16 unit subcut QHS 10/22/20 [History Last Taken 04/20/23] insulin glargine 100 unit/mL (3 mL) subcutaneous pen (Lantus Solostar U-100 Insulin) 36 unit subcut DAILY 10/22/20 [History Last Taken 04/20/23] insulin lispro 200 unit/mL (3 mL) subcutaneous pen (Humalog KwikPen U-200 Insulin) See Protocol subcut TID sliding scale 10/22/20 [History Last Taken 04/20/23] levetiracetam 500 mg tablet 500 mg PO BID 10/22/20 [History Last Taken 04/21/23] magnesium oxide 400 mg PO DAILY 10/22/20 [History Last Taken 04/21/23] artificial tears(hypromellose) 0.3 % eye gel (Systane Gel) 1 drp EACH EYE Q6H 12/05/22 [History Last Taken 04/21/23] fluticasone propionate 50 mcg/actuation nasal spray,suspension 2 spray intranasal DAILY 12/05/22 [History Last Taken 04/21/23] guaifenesin 1,200 mg tablet, extended release 12 hr (Mucus Relief ER) 1,200 mg PO BID 12/05/22 [History Last Taken 04/11/23] vibegron 75 mg tablet (Gemtesa) 75 mg PO DAILY 12/05/22 [History Last Taken 04/21/23] acetaminophen 500 mg tablet 1,000 mg PO Q8H PRN Pain 04/21/23 [History Last Taken 04/20/23] albuterol sulfate 2.5 mg/3 mL (0.083 %) solution for nebulization 2.5 mg inhalation Q6H PRN shortness of breath or wheezing 04/21/23 [History Last Taken Unknown] alendronate 70 mg tablet 70 mg PO FR 04/21/23 [History Last Taken 04/16/23] calcium carbonate 500 mg-vitamin D3 5 mcg (200 unit) tablet (Oyster Shell Calcium-Vitamin D3) 1 tab PO BIDCM 04/21/23 [History Last Taken 04/21/23] dicyclomine 20 mg tablet 20 mg PO TID 04/21/23 [History Last Taken 04/21/23] dulaglutide 0.75 mg/0.5 mL subcutaneous pen injector (Trulicity) 0.75 mg subcut MO 04/21/23 [History Last Taken 04/19/23] fluticasone furoate 100 mcg-vilanterol 25 mcg/dose inhalation powder (Breo Ellipta) 1 ea inhalation DAILY 04/21/23 [History Last Taken 04/20/23] memantine 10 mg tablet 10 mg PO BID 04/21/23 [History Last Taken Unknown] metformin 1,000 mg tablet 1,000 mg PO BID 04/21/23 [History Last Taken 04/21/23] omeprazole 40 mg capsule,delayed release 40 mg PO DAILY 04/21/23 [History Last Taken 04/21/23] peg 400-propylene glycol 0.4 %-0.3 % eye gel drops (Systane Gel) 1 drp ophthalmic (eye) 4X/DAY 04/21/23 [History Last Taken 04/21/23] Allergy/AdvReac Type Severity Reaction Status Date / Time atorvastatin calcium Allergy Unknown Verified 04/21/23 08:57 [From Lipitor] ibuprofen [From Motrin] Allergy Unknown Verified 04/21/23 08:57 Family History Mother Heart disease Hypertension Myocardial infarction Diabetes Father Heart disease Hypertension Myocardial infarction Surgical History History of angioplasty of peripheral vessel History of esophagogastroduodenoscopy (EGD) Hx laparoscopic cholecystectomy Hx of breast biopsy Hx of cataract extraction Hx of colonoscopy Social History household members: none housing: assisted living facility Smoking Status: Light Smoker (<10/day) alcohol intake: never substance use type: does not use ROS ROS Narrative See HPI Physical Exam Const alert, oriented x3, no apparent distress and well nourished Constitutional Narrative: Sitting in armchair on my evaluation General Appearance: cooperative HEENT normocephalic, head/scalp atraumatic and moist oral mucous membranes Eyes PERRL and EOMs intact bilaterally Eyes Narrative: Mild conjunctival pallor with no scleral icterus Neck full ROM, no lymphadenopathy and supple Neck Narrative: Trachea midline General: trachea midline Resp normal respiratory effort, no retractions and no use of accessory muscles Auscultation: wheezes; Negative for rales or rhonchi Cardio regular rate, regular rhythm, S1 normal heart sound, S2 normal heart sound, no murmurs, no rub, no gallops and no clicks GI normal to inspection, nondistended, normoactive bowel sounds, soft to palpation and non-tender Extremity no clubbing, cyanosis or edema Extremity Narrative: Feet elevated, but no edema noted Neuro oriented x3, moves all extremities and no focal motor deficits Speech: speech normal Psych affect normal Psych Narrative: Very pleasant, eye contact is good, patient interacts appropriately Medical Records Data Attestation: I reviewed the patient's medical records Medical records narrative: Echocardiogram shows moderate LVH with stage I diastolic dysfunction and an EF of 65%. PASP is slightly elevated at 30 mmHg. No PFTs available for review. Lab / Micro Data Attestation: I reviewed the patient's lab results. Lab results narrative: Patient does have a history of Enterobacter and Klebsiella UTIs, pneumococcal pneumonia, but no MDRO 04/23/23 04:34 04/23/23 04:34 Labs: Laboratory Results - last 24 hr 04/22/23 11:49: POC Glucose 429 H 04/22/23 15:30: MRSA (PCR) Negative 04/22/23 16:18: POC Glucose 383 H 04/23/23 04:34: WBC 21.1 H, RBC 3.52 L, Hgb 8.3 L, Hct 27.7 L, MCV 78.7 L, MCH 23.6 L, MCHC 30.0 L, RDW Std Deviation 46.7 H, RDW Coeff of Fadumo 16.5 H, Plt Count 298, MPV 10.3, Immature Gran % (Auto) 1.900 H, Neut % (Auto) 87.5 H, Lymph % (Auto) 7.3 L, [place] % (Auto) 3.2, Eos % (Auto) 0.0, Baso % (Auto) 0.1, Absolute Neuts (auto) 18.4 H, Absolute Lymphs (auto) 1.53, Nucleated RBC % 0, Sodium 140, Potassium 4.4, Chloride 103, Carbon Dioxide 29.0, Anion Gap 8, BUN 26 H, Creatinine 1.19 H, Estim Creat Clear Calc 42.83, Est GFR (MDRD) Af Amer 57 L, Est GFR (MDRD) Non-Af 47 L, BUN/Creatinine Ratio 21.8 H, Glucose 442 H, Calcium 8.8, Vancomycin Trough 13.3 04/23/23 06:28: POC Glucose 407 H Micro: Microbiology 04/22/23 10:40 Sputum, Expectorated/Coughed Gram Stain - Final 04/22/23 10:40 Sputum, Expectorated/Coughed Respiratory Culture - Preliminary Appears to be normal respiratory светлана. Further studies to follow. 04/21/23 10:29 Blood Culture (Wb) #2 - Right Wrist Blood Culture - Preliminary No growth in 48 hours. 04/21/23 09:25 Blood Culture (Wb) - Left Hand Blood Culture - Preliminary No growth in 48 hours. 04/22/23 21:50 Stool Stool Occult Blood (ANAMARIA) - Final Imaging Radiology Impression Echocardiogram 04/21/23 17:55 Interpretation Summary Normal LV size. Moderate concentric left ventricular hypertrophy. Left ventricular systolic function is normal. The estimated ejection fraction is 65 %. Stage 1 diastolic dysfunction. Ordering Physician: Jessi Heath Performed By: Tony Ruano RCS I did personally review patient's CT scan of the chest. Patient appears to have a peripherally located nodule in the right upper lobe on image 127 and bronchiectasis, best seen on image 89 Charges/Coding Visit Charges Inpatient E&M: 55517 Init Hosp L3
--- NOTE | 2023-04-23 12:03 | OP.EGD_ITS ---
Patient Name: Vicki Vanessa Procedure Date: 04/23/2023 11:30 AM Date of : 1945 Age: 78 Procedure: Upper GI endoscopy Indications: Epigastric abdominal pain, Iron deficiency anemia Providers: Babatunde Machado DO Medicines: Monitored Anesthesia Care Patient Profile: This is a 78 year old female. Refer to note in patient chart for documentation of history and physical. Patient has symptoms of chronic epigastric abdominal pain. Complications: No immediate complications. Procedure: Pre-Anesthesia Assessment: - Prior to the procedure, a History and Physical was performed, and patient medications and allergies were reviewed. The patient is competent. The risks and benefits of the procedure and the sedation options and risks were discussed with the patient. All questions were answered and informed consent was obtained. Patient identification and proposed procedure were verified by the physician. Mental Status Examination: alert and oriented. Airway Examination: normal oropharyngeal airway and neck mobility. Prophylactic Antibiotics: The patient does not require prophylactic antibiotics. Prior Anticoagulants: The patient has taken no anticoagulant or antiplatelet agents. After reviewing the risks and benefits, the patient was deemed in satisfactory condition to undergo the procedure. The anesthesia plan was to use monitored anesthesia care (MAC). Immediately prior to administration of medications, the patient was re-assessed for adequacy to receive sedatives. The heart rate, respiratory rate, oxygen saturations, blood pressure, adequacy of pulmonary ventilation, and response to care were monitored throughout the procedure. The physical status of the patient was re-assessed after the procedure. After obtaining informed consent, the endoscope was passed under direct vision. Throughout the procedure, the patient's blood pressure, pulse, and oxygen saturations were monitored continuously. The Endoscope was introduced through the mouth, and advanced to the second part of duodenum. The upper GI endoscopy was accomplished without difficulty. The patient tolerated the procedure well. Scope In: 11:44:59 AM Scope Out: 11:49:25 AM Total Procedure Duration Time 0 hours 4 minutes 26 seconds Findings: LA Grade B (one or more mucosal breaks greater than 5 mm, not extending between the tops of two mucosal folds) esophagitis with no bleeding was found 36 to 40 cm from the incisors. No gross lesions were noted in the entire examined stomach. Atrophic gastritis and a dilated stomach was seen possibly secondary to gastroparesis. Localized mild inflammation characterized by congestion (edema) and friability was found in the duodenal bulb. Biopsies were taken with a cold forceps for histology. Verification of patient identification for the specimen was done. Estimated blood loss was minimal. Food (residue) was found in the duodenal bulb, in the first portion of the duodenum and in the second portion of the duodenum. A small amount of food (residue) was found in the gastric antrum. Impression: - LA Grade B chronic esophagitis with no bleeding. - No gross lesions in the entire stomach. - Chronic duodenitis. Biopsied. - Retained food in the duodenum. - A small amount of food (residue) in the stomach. Possibly secondary to gastroparesis. Recommendation: - Return patient to [facility] for ongoing care. - Full liquid diet. - Continue present medications. -Gastric emptying study inpatient versus outpatient. Procedure Code(s): --- Professional --- 83564, Esophagogastroduodenoscopy, flexible, transoral; with biopsy, single or multiple CPT copyright 2021 [employer]. All rights reserved. The codes documented in this report are preliminary and upon timber cruiser review may be revised to meet current compliance requirements. Babatunde Machado DO 04/23/2023 12:02:08 PM This report has been signed electronically. Number of Addenda: 0 Note Initiated On: 04/23/2023 11:30 AM
--- NOTE | 2023-04-23 12:03 | OP.CCLET_ITS ---
04/23/2023 Jh Hewitt [address] [place] [address] Re : Upper GI endoscopy procedure for Vicki Vanessa Dear Dr. Hewitt This procedure was performed on Sunday, April 23, 2023. My impressions and recommendations are as follows: Impressions : - LA Grade B chronic esophagitis with no bleeding. - No gross lesions in the entire stomach. - Chronic duodenitis. Biopsied. - Retained food in the duodenum. - A small amount of food (residue) in the stomach. Possibly secondary to gastroparesis. Recommendations : - Return patient to [facility] for ongoing care. - Full liquid diet. - Continue present medications. -Gastric emptying study inpatient versus outpatient. My findings are described in the full procedure note, which is enclosed. If I can be of further assistance, please feel free to contact me at . Sincerely, Babatunde Machado, 04/23/2023 12:02:08 PM This report has been signed electronically.
--- NOTE | 2023-04-23 12:21 | CASEMGMT ---
Addendum entered by Hansa Lindsey 04/23/23 13:40: Per Minerva brenner/TVT, patient can return. SW updated. Hansa Lindsey, Discharge Planning Asst. Original Note: Discharge Planning Updates faxed to [facility]. Requested confirmation that she is able to return. Awaiting response. Hansa Lindsey, Discharge Planning Asst.
[2023-04-23] MEDS: Pantoprazole Sodium 40 MG in 0.9% Normal Saline (100mL MB+) 100 ML 330 MG IV ×2 (12:43→20:51)
[2023-04-23] MEDS: 0.9% Saline Lock 10 ML Syringe IV (12:45)
[2023-04-23] MEDS: Insulin Glargine-YFGN 100 UNIT/ML Pen 36 UNIT SC (12:58)
[2023-04-23] MEDS: Fluticasone 0.05% 1 SPRAY NASAL.SRY 2 SPRAY NASAL (12:58)
[2023-04-23] MEDS: Memantine Hydrochloride 10 MG Tablet PO ×2 (13:07→20:38)
[2023-04-23] MEDS: Magnesium Chloride 64 MG Delay Rel.Tablet 128 MG PO (13:08)
[2023-04-23] MEDS: Vibegron 75 MG TABLET PO (13:08)
[2023-04-23] MEDS: Cholecalciferol (VIT D3) 25 MCG TABLET (1,000 UNITS) PO (13:09)
[2023-04-23] MEDS: Aspirin 81 MG TAB.CHEW PO (13:09)
[2023-04-23] MEDS: levETIRAcetam 500 MG Tablet PO ×2 (13:11→20:37)
[2023-04-23 13:16] LABS: Bedside Glucose 312 mg/dL (74-106)
--- NOTE | 2023-04-23 13:54 | CASEMGMT ---
RAFAT CM into pt room, pt lying in bed in no distress. Pt with multiple family members at bedside. Pt agreeable to discussion with family present. Pt plans to return home to assisted living. Discussed home health therapy, pt states she would like therapy and she can get it at the assisted living. Placed order and printed and given to SW for packet. Discussed homegoing oxygen instruction and that pt will be tested to see if she qualifies prior to leaving. Provided pt with a local in network list of DME companies, pt chose [employer]. Green sheet on the chart for this. Pt family in room who states they will be transporting pt home and will also make sure they call [employer] for oxygen delivery if needed. They are aware the number is on the pink tag. No further questions or needs.
[2023-04-23] MEDS: Sodium Ferric Gluconat/Sucrose 250 MG in 0.9% Normal Saline (250mL Bag) 250 ML 135 MG IV (14:17)
--- NOTE | 2023-04-23 15:07 | CASEMGMT ---
Social Work Plan for pt to return to [facility] when medically ready. Green sheet placed on pt chart to facility weekend discharge. Home health PT/OT orders faxed to [facility]. YULISSA Ingram
--- NOTE | 2023-04-23 15:41 | PN.HOSP_ITS ---
Reason for Visit Reason for Visit: Shortness of breath at rest and with exertion Subjective Subjective Patient states she overall is feeling much better today. Still having shortness of breath more notably with exertion. Family think she is feeling better and looks better overall. Objective Data Objective Data Vital Signs: Vital Signs Temp Pulse Resp BP Pulse Ox O2 Del Method O2 Flow Rate 97.8 F 86 19 H 158/78 H 97 Nasal Cannula 2 04/23/23 13:00 04/23/23 15:20 04/23/23 15:20 04/23/23 13:00 04/23/23 14:45 04/23/23 13:00 04/23/23 14:45 FiO2 92 04/22/23 21:29 Oxygen Flow Rate (L/min) 2 Oxygen Delivery Method Nasal Cannula Weight: 90.038 kg Body Mass Index (BMI) 35.2 Intake & Output: Intake and Output for Last 24 Hours 04/21/23 04/22/23 04/23/23 23:59 23:59 23:59 Intake Total 2585 / 2885 3115 / 3115 510 / 510 Balance 2585 / 2885 3115 / 3115 510 / 510 Lab / Micro Data 04/23/23 04:34 04/23/23 04:34 Labs: Laboratory Results - last 24 hr 04/22/23 15:30: MRSA (PCR) Negative 04/22/23 16:18: POC Glucose 383 H 04/23/23 04:34: WBC 21.1 H, RBC 3.52 L, Hgb 8.3 L, Hct 27.7 L, MCV 78.7 L, MCH 23.6 L, MCHC 30.0 L, RDW Std Deviation 46.7 H, RDW Coeff of Fadumo 16.5 H, Plt Count 298, MPV 10.3, Immature Gran % (Auto) 1.900 H, Neut % (Auto) 87.5 H, Lymph % (Auto) 7.3 L, [place] % (Auto) 3.2, Eos % (Auto) 0.0, Baso % (Auto) 0.1, Absolute Neuts (auto) 18.4 H, Absolute Lymphs (auto) 1.53, Nucleated RBC % 0, Sodium 140, Potassium 4.4, Chloride 103, Carbon Dioxide 29.0, Anion Gap 8, BUN 26 H, Creatinine 1.19 H, Estim Creat Clear Calc 42.83, Est GFR (MDRD) Af Amer 57 L, Est GFR (MDRD) Non-Af 47 L, BUN/Creatinine Ratio 21.8 H, Glucose 442 H, Calcium 8.8, Vancomycin Trough 13.3 04/23/23 06:28: POC Glucose 407 H 04/23/23 12:50: POC Glucose 312 H Micro: Microbiology 04/22/23 10:40 Sputum, Expectorated/Coughed Gram Stain - Final 04/22/23 10:40 Sputum, Expectorated/Coughed Respiratory Culture - Preliminary Appears to be normal respiratory светлана. Further studies to follow. 04/21/23 10:29 Blood Culture (Wb) #2 - Right Wrist Blood Culture - Preliminary No growth in 48 hours. 04/21/23 09:25 Blood Culture (Wb) - Left Hand Blood Culture - Preliminary No growth in 48 hours. 04/22/23 21:50 Stool Stool Occult Blood (ANAMARIA) - Final 04/21/23 16:15 Mucosa - Nasopharyngeal Respiratory Panel (PCR) - Final 04/21/23 19:30 Urine, Random Legionella Antigen - Final 04/21/23 19:30 Urine, Random Streptococcus pneumoniae Antigen (M - Final 04/21/23 09:50 Mucosa - Nose SARS-CoV-2, Influenza & RSV (PCR) - Final Radiography Diagnostic Testing: Radiology Impression Echocardiogram 04/21/23 17:55 Interpretation Summary Normal LV size. Moderate concentric left ventricular hypertrophy. Left ventricular systolic function is normal. The estimated ejection fraction is 65 %. Stage 1 diastolic dysfunction. Ordering Physician: Jessi Heath Performed By: Tony Ruano RCS Physical Exam Const alert, oriented x3, no apparent distress and well nourished; Negative for average body habitus or healthy appearing Constitutional Narrative: Morbidly obese, older, white female, sitting up in a chair at the bedside, appears comfortable, family at bedside, nontoxic and very pleasant General Appearance: cooperative HEENT normocephalic, head/scalp atraumatic and moist oral mucous membranes HEENT Narrative: Dentures in place, Mallampati 3, no thrush Resp normal respiratory effort, no retractions, no use of accessory muscles and clear to auscultation bilaterally Resp Narrative: Scattered diffuse fine crackles Auscultation: crackles; Negative for rhonchi or wheezes Cardio regular rate, regular rhythm, S1 normal heart sound, S2 normal heart sound, no murmurs, no rub, no gallops and no clicks Cardio Narrative: Mild tachycardia GI normal to inspection, nondistended, normoactive bowel sounds, soft to palpation and non-tender Extremity no clubbing, cyanosis or edema Skin no rashes or lesions noted Neuro oriented x3, moves all extremities and no focal motor deficits Speech: speech normal Psych affect normal Psych Narrative: Very pleasant, eye contact is good, patient interacts appropriately Assessment & Plan Assessment/Plan (1) Acidosis, lactic: (2) Pneumonia: QUALIFIERS: Pneumonia type: due to unspecified organism Laterality: bilateral Lung location: lower lobe of lung Qualified Code(s): J18.9 - Pneumonia, unspecified organism (3) Hypoxia: (4) Elevated serum creatinine: (5) Hyperglycemia: (6) Leukocytosis: (7) Elevated d-dimer: PLAN: Plan Acute hypoxic respiratory failure secondary to suspected pneumonia viral versus bacterial -Patient with tachycardia, tachypnea, and hypoxia -Was uptitrated to 3 L at maximum but now down to 2 L and weaning throughout the day -CT is overall unchanged but respiratory status is worse -Sputum culture so far appears to be normal светлана -Will narrow to Unasyn and per discussion with son there is concern for aspiration -Speech therapy is consulted -Strep pneumo and Legionella antigens are negative -Respiratory viral panel was unremarkable -Continue Zosyn -MRSA PCR negative so we will discontinue vancomycin -Aggressive pulmonary toilet -I-S and incentive spirometry -Continue IV steroids 40 every 8 with plan to taper at discharge -Echo showed an stable ejection fraction with stage I diastolic dysfunction and moderate concentric LVH -Pulmonary medicine consulted and has appointment to follow-up with Elevated D-dimer -CTA was negative for PE Microcytic anemia secondary to iron deficiency -Hemoglobin has slowly been trending down -Iron studies appear to be consistent with blood loss anemia -Guaiac was negative -Continue IV Protonix every 12 hours until EGD is completed -IV iron 200 mg IV x 3 days if she is here if not we will transition to iron tablets--> day 2 of 3 -GI following with plans for EGD today-appreciate input -Repeat CBC in a.m. DM-2 with hyperglycemia -Hold home metformin -Blood sugars up so we will uptitrate basal insulin some and continue sliding scale -Elevation is related to steroid use -Continue subcu insulin -SSI -A1c was 7.4 -Acute elevation may be due to the above History of dementia -Continue home medication Generalized weakness/debility -PT/OT following -Case management/social work consultation for assistance with discharge planning -Patient is currently in assisted living History of DVT -Patient is not anticoagulated History of stroke -Patient with some mild right hand and foot weakness -Continue baby aspirin -Uses a wheeled walker at baseline -Continue modification of secondary risk factors Hyperlipidemia -Continue statin GERD -Continue PPI Seizure disorder -Continue home Keppra Anxiety/depression -Continue home medication regimen with venlafaxine, Zyprexa and clonazepam DVT prophylaxis -Subcu Lovenox CODE STATUS -DNR CCA with no intubation as per discussion on admission Charges/Coding Visit Charges Inpatient E&M: 10415 Subs Hosp L2
[2023-04-23] MEDS: Calcium Carb/Vitamin D 1 TABLET Tablet PO (16:23)
[2023-04-23 16:27] LABS: Bedside Glucose 317 mg/dL (74-106)
[2023-04-23] MEDS: 0.9% Normal Saline (250mL Bag) 250 ML 15 ML IV ×2 (17:08→19:26)
[2023-04-23] MEDS: Ampicillin/Sulbactam 3 GM in 0.9% Normal Saline (100mL MB+) 100 ML IV ×2 (19:26→23:45)
[2023-04-23] MEDS: Rosuvastatin 20 MG Tablet PO (20:38)
[2023-04-23] MEDS: guaiFENesin 1,200 MG Tablet 1200 MG PO (20:39)
[2023-04-23] MEDS: Venlafaxine HCl 75 MG Tablet PO (20:40)
[2023-04-23] MEDS: Insulin Glargine-YFGN 100 UNIT/ML Pen 20 UNIT SC (20:42)
[2023-04-23] MEDS: clonazePAM 0.5 MG Tablet PO (20:50)
[2023-04-23 21:15] LABS: Bedside Glucose 307 mg/dL (74-106)
[2023-04-24] VITALS (14 sets, daily range): BP systolic 130–148; BP diastolic 55–77; PULSE 82–93; RESP 16–24; TEMP 36.4–36.9; O2SAT 88–99
[2023-04-24] MEDS: Vancomycin IV 1,000 MG/200 ML BAG 200 MG IV (04:36)
[2023-04-24] MEDS: Ampicillin/Sulbactam 3 GM in 0.9% Normal Saline (100mL MB+) 100 ML IV ×3 (06:27→18:35)
[2023-04-24] MEDS: Glycerin/Hypromellose/PEG400 15 ml Bottle 1 DRP EACH EYE ×4 (06:27→22:22)
[2023-04-24] MEDS: Gabapentin 100 MG Capsule 200 MG PO ×3 (06:28→22:22)
[2023-04-24] MEDS: Dicyclomine 10 MG Capsule 20 MG PO ×3 (06:40→22:37)
[2023-04-24] MEDS: Insulin Lispro 100 UNIT/ML INSULN.PEN SC ×3 (06:41→18:27)
[2023-04-24 07:22] LABS: Bedside Glucose 284 mg/dL (74-106)
[2023-04-24] MEDS: Ipratropium/Albuterol Sulfate 3 ML AMPUL.NEB INHALATION ×5 (07:33→23:30)
[2023-04-24 07:48] LABS: Absolute Neutrophil Count 19.3 X10^3/uL (2.0-7.7); Basophil# 0.06 X10^3/uL; Basophil% 0.3 % (0-1); Hematocrit 28.5 % (37-47); Hemoglobin 8.1 g/dL (12.0-15.0); Lymphocyte % 11.4 % (19-41); Mean Corp Hgb Conc 28.4 g/dL (32-36); Mean Corpuscular Hgb 22.5 pg (27.0-32.0); Mean Corpuscular Volume 79.2 fL (81-99); Mean Platelet Vol. 10.5 fl (6.2-12.0); Monocyte# 0.69 X10^3/uL; Monocyte% 2.9 % (0-10); NRBC Flagged by Analyzer 0 % (0-5); Neutrophil # 19.27 X10^3/uL (2.7-7.7); Neutrophil % 81.1 % (47-70); Platelet Count 332 K/mm3 (150-450); RBC Distribution Width CV 16.6 % (11.6-14.6); RBC Distribution Width SD 46.8 fl (35.1-43.9); White Blood Count 23.7 K/mm3 (4.4-11.0)
[2023-04-24] MEDS: Pantoprazole Sodium 40 MG in 0.9% Normal Saline (100mL MB+) 100 ML 330 MG IV (08:01)
[2023-04-24] MEDS: guaiFENesin 1,200 MG Tablet 1200 MG PO ×2 (08:02→22:24)
[2023-04-24] MEDS: Magnesium Chloride 64 MG Delay Rel.Tablet 128 MG PO (08:03)
[2023-04-24] MEDS: levETIRAcetam 500 MG Tablet PO ×2 (08:03→22:26)
[2023-04-24] MEDS: Aspirin 81 MG TAB.CHEW PO (08:04)
[2023-04-24] MEDS: Fluticasone 0.05% 1 SPRAY NASAL.SRY 2 SPRAY NASAL (08:04)
[2023-04-24] MEDS: Calcium Carb/Vitamin D 1 TABLET Tablet PO ×2 (08:04→18:28)
[2023-04-24] MEDS: Venlafaxine HCl 75 MG Tablet PO ×2 (08:05→22:24)
[2023-04-24] MEDS: Enoxaparin 40 MG/0.4 ML Syringe SC (08:05)
[2023-04-24] MEDS: Memantine Hydrochloride 10 MG Tablet PO ×2 (08:06→22:25)
[2023-04-24] MEDS: Vibegron 75 MG TABLET PO (08:06)
[2023-04-24] MEDS: Cholecalciferol (VIT D3) 25 MCG TABLET (1,000 UNITS) PO (08:07)
[2023-04-24] MEDS: Acetaminophen 500 MG Tablet 1000 MG PO ×2 (08:10→18:33)
[2023-04-24] MEDS: clonazePAM 0.5 MG Tablet PO ×2 (08:11→22:22)
[2023-04-24 08:26] LABS: Anion Gap 5 (5-15); BUN 27 mg/dL (7-18); BUN/Creat Ratio 30.2 RATIO (10-20); Calcium,Total 8.6 mg/dL (8.5-10.1); Chloride 104 mmol/L (98-107); Creatinine, Serum 0.89 mg/dL (0.55-1.02); EST Glomerular Filtration Rate 65 mL/min (>60); Est Glom Filt Rate - Afr Amer 79 mL/min (>60); Estimated Creatinine Clearance 57.27 ml/min; Glucose 328 mg/dL (74-106); Potassium 4.3 mmol/L (3.5-5.1); Sodium Level 137 mmol/L (136-145)
[2023-04-24] MEDS: Insulin Glargine-YFGN 100 UNIT/ML Pen 36 UNIT SC (10:19)
[2023-04-24] MEDS: Sodium Ferric Gluconat/Sucrose 250 MG in 0.9% Normal Saline (250mL Bag) 250 ML 135 MG IV (10:19)
[2023-04-24 12:32] LABS: Bedside Glucose 382 mg/dL (74-106)
[2023-04-24] MEDS: 0.9% Normal Saline (250mL Bag) 250 ML 15 ML IV (14:29)
[2023-04-24 16:44] LABS: Bedside Glucose 454 mg/dL (74-106)
[2023-04-24 16:44] LABS: Bedside Glucose > 500 mg/dL (74-106)
[2023-04-24 17:55] LABS: Bedside Glucose 421 mg/dL (74-106)
--- NOTE | 2023-04-24 18:18 | PCM.PN.HOSP ---
Reason for Visit Reason for Visit: Diagnoses Elevated white blood cell count, unspecified (04/21/23) Acidosis, unspecified (04/21/23) Pneumonia, unspecified organism (04/21/23) Bronchiectasis with (acute) exacerbation (04/21/23) Pneumonitis due to inhalation of food and vomit (04/21/23) Hypoxemia (04/21/23) Hyperglycemia, unspecified (04/21/23) Other specified abnormal findings of blood chemistry (04/21/23) Subjective Subjective Patient was seen and examined today, she remains on low-flow nasal cannula oxygen. Patient is still coughing and bringing up green sputum. Objective Data Objective Data Vital Signs: Vital Signs Temp Pulse Resp BP Pulse Ox O2 Del Method O2 Flow Rate 98.5 F 82 18 148/77 H 95 Nasal Cannula 2 04/24/23 15:27 04/24/23 16:06 04/24/23 16:06 04/24/23 15:27 04/24/23 15:27 04/24/23 15:27 04/24/23 14:10 FiO2 92 04/22/23 21:29 Oxygen Flow Rate (L/min) 2 Oxygen Delivery Method Nasal Cannula Weight: 90.038 kg Body Mass Index (BMI) 35.2 Intake & Output: Intake and Output for Last 24 Hours 04/22/23 04/23/23 04/24/23 23:59 23:59 23:59 Intake Total 3115 / 3115 1217.5 / 1417.5 1433.75 / 1433.75 Balance 3115 / 3115 1217.5 / 1417.5 1433.75 / 1433.75 Lab / Micro Data 04/24/23 06:41 04/24/23 06:41 Labs: Laboratory Results - last 24 hr 04/22/23 22:06: POC Glucose > 500 H* 04/22/23 22:07: POC Glucose 454 H* 04/23/23 20:42: POC Glucose 307 H 04/24/23 06:41: WBC 23.7 H, RBC 3.60 L, Hgb 8.1 L, Hct 28.5 L, MCV 79.2 L, MCH 22.5 L, MCHC 28.4 L D, RDW Std Deviation 46.8 H, RDW Coeff of Fadumo 16.6 H, Plt Count 332, MPV 10.5, Immature Gran % (Auto) 4.300 H, Neut % (Auto) 81.1 H, Lymph % (Auto) 11.4 L, [place] % (Auto) 2.9, Eos % (Auto) 0.0, Baso % (Auto) 0.3, Absolute Neuts (auto) 19.3 H, Absolute Lymphs (auto) 2.70, Nucleated RBC % 0, Sodium 137, Potassium 4.3, Chloride 104, Carbon Dioxide 28.0, Anion Gap 5, BUN 27 H, Creatinine 0.89, Estim Creat Clear Calc 57.27, Est GFR (MDRD) Af Amer 79, Est GFR (MDRD) Non-Af 65, BUN/Creatinine Ratio 30.2 H, Glucose 328 H, Calcium 8.6, POC Glucose 284 H 04/24/23 12:06: POC Glucose 382 H 04/24/23 17:22: POC Glucose 421 H Micro: Microbiology 04/22/23 10:40 Sputum, Expectorated/Coughed Gram Stain - Final 04/22/23 10:40 Sputum, Expectorated/Coughed Respiratory Culture - Final 04/21/23 10:29 Blood Culture (Wb) #2 - Right Wrist Blood Culture - Preliminary No growth in 48 hours. 04/21/23 09:25 Blood Culture (Wb) - Left Hand Blood Culture - Preliminary No growth in 48 hours. 04/22/23 21:50 Stool Stool Occult Blood (ANAMARIA) - Final 04/21/23 16:15 Mucosa - Nasopharyngeal Respiratory Panel (PCR) - Final 04/21/23 19:30 Urine, Random Legionella Antigen - Final 04/21/23 19:30 Urine, Random Streptococcus pneumoniae Antigen (M - Final 04/21/23 09:50 Mucosa - Nose SARS-CoV-2, Influenza & RSV (PCR) - Final Physical Exam Const alert and no apparent distress General Appearance: cooperative, well kempt and well developed Orientation / Consciousness: awake, oriented to person and oriented to place HEENT normocephalic, head/scalp atraumatic and moist oral mucous membranes Eyes PERRL, EOMs intact bilaterally and conjunctivae normal Neck supple, no JVD, thyroid normal and no carotid bruits General: trachea midline Resp normal respiratory effort Resp Narrative: Scattered expiratory rhonchi are noted bilaterally Auscultation: rhonchi; Negative for rales or wheezes Cardio regular rate, regular rhythm, S1 normal heart sound, S2 normal heart sound, no murmurs, no rub and no gallops GI normal to inspection, nondistended, normoactive bowel sounds, soft to palpation, non-tender and non-distended Extremity no clubbing, cyanosis or edema Skin no rashes or lesions noted General Skin Exam: no breakdown Neuro CN's II-XII intact bilaterally, moves all extremities, no focal motor deficits and no sensory deficits noted Sensorium / Orientation: awake, alert, oriented to person and oriented to place Speech: speech normal Psych affect normal Assessment & Plan Assessment/Plan (1) Respiratory failure: PLAN: Plan 1. Acute hypoxic respiratory failure secondary to community-acquired pneumonia and underlying interstitial lung disease-patient's pulse ox will be monitored oxygen will be titrated if possible, patient will remain on antibiotics-I will change this to oral antibiotics, aerosol treatments will continue, patient may need oxygen set up as an outpatient, she currently lives in assisted living #2 community-acquired pneumonia-patient will remain on antibiotics for now, I have elected to change her to Levaquin, Unasyn will be discontinued #3 interstitial lung disease-complicates care, medical course, recovery, and prognosis, patient may benefit from follow-up with pulmonary medicine as an outpatient #4 exacerbation of COPD-I have elected to change the patient to oral prednisone at this time #5 dementia-complicates care, medical course, recovery, and prognosis #6 bronchiectasis-continue aerosol treatments and monitor pulse ox Total clinical time spent by myself addressing the patient's medical issues, reviewing all of her data, and collaborating with patient's care team: 35 minutes Charges/Coding Visit Charges Inpatient E&M: 17827 Subs Hosp L2
[2023-04-24] MEDS: Furosemide 40 MG Tablet PO (19:41)
[2023-04-24] MEDS: Rosuvastatin 20 MG Tablet PO (22:27)
[2023-04-24] MEDS: Insulin Glargine-YFGN 100 UNIT/ML Pen 20 UNIT SC (22:39)
[2023-04-24 23:46] LABS: Bedside Glucose 456 mg/dL (74-106)
[2023-04-25] VITALS (11 sets, daily range): BP systolic 110–151; BP diastolic 62–79; PULSE 76–95; RESP 12–18; TEMP 36.6–37.2; O2SAT 93–97
[2023-04-25] MEDS: Ipratropium/Albuterol Sulfate 3 ML AMPUL.NEB INHALATION ×5 (02:30→23:25)
[2023-04-25] MEDS: Glycerin/Hypromellose/PEG400 15 ml Bottle 1 DRP EACH EYE ×4 (05:33→22:02)
[2023-04-25] MEDS: Dicyclomine 10 MG Capsule 20 MG PO ×3 (05:33→21:58)
[2023-04-25] MEDS: Gabapentin 100 MG Capsule 200 MG PO ×3 (05:33→21:53)
[2023-04-25] MEDS: levoFLOXacin 500 MG Tablet PO (05:33)
[2023-04-25] MEDS: Insulin Lispro 100 UNIT/ML INSULN.PEN SC ×3 (05:38→16:50)
[2023-04-25 06:41] LABS: Bedside Glucose 249 mg/dL (74-106)
[2023-04-25] MEDS: Venlafaxine HCl 75 MG Tablet PO ×2 (09:54→21:54)
[2023-04-25] MEDS: predniSONE 20 MG Tablet PO (09:54)
[2023-04-25] MEDS: Pantoprazole Sodium 40 MG Tablet PO (09:54)
[2023-04-25] MEDS: Furosemide 40 MG Tablet PO (09:54)
[2023-04-25] MEDS: Calcium Carb/Vitamin D 1 TABLET Tablet PO ×2 (09:54→16:50)
[2023-04-25] MEDS: Memantine Hydrochloride 10 MG Tablet PO ×2 (09:54→21:54)
[2023-04-25] MEDS: Cholecalciferol (VIT D3) 25 MCG TABLET (1,000 UNITS) PO (09:54)
[2023-04-25] MEDS: Aspirin 81 MG TAB.CHEW PO (09:54)
[2023-04-25] MEDS: levETIRAcetam 500 MG Tablet PO ×2 (09:55→21:53)
[2023-04-25] MEDS: Potassium Chloride Oral Tablet 20 MEQ PO ×2 (09:55→16:50)
[2023-04-25] MEDS: Enoxaparin 40 MG/0.4 ML Syringe SC (09:55)
[2023-04-25] MEDS: Vibegron 75 MG TABLET PO (09:55)
[2023-04-25] MEDS: guaiFENesin 1,200 MG Tablet 1200 MG PO ×2 (09:55→21:55)
[2023-04-25] MEDS: Magnesium Chloride 64 MG Delay Rel.Tablet 128 MG PO (09:56)
[2023-04-25] MEDS: Fluticasone 0.05% 1 SPRAY NASAL.SRY 2 SPRAY NASAL (09:56)
[2023-04-25] MEDS: clonazePAM 0.5 MG Tablet PO ×2 (10:01→21:57)
[2023-04-25] MEDS: Insulin Glargine-YFGN 100 UNIT/ML Pen 36 UNIT SC (10:07)
[2023-04-25] MEDS: Sodium Ferric Gluconat/Sucrose 250 MG in 0.9% Normal Saline (250mL Bag) 250 ML 135 MG IV (10:21)
[2023-04-25] MEDS: 0.9% Normal Saline (250mL Bag) 250 ML 15 ML IV (10:21)
[2023-04-25 11:45] LABS: Bedside Glucose 228 mg/dL (74-106)
--- NOTE | 2023-04-25 16:09 | PCM.PN.TICU ---
Objective Data Objective Data Vital Signs: Vital Signs Last response Temperature 36.6 C 04/25/23 11:44 Temperature Source Oral 04/25/23 11:44 Pulse Rate 82 04/25/23 11:44 Pulse Strength Normal (2+) 04/25/23 10:00 Respiratory Rate 14 04/25/23 11:44 Respiratory Effort Normal, Non-Labored 04/25/23 11:00 Respiratory Depth Normal 04/25/23 11:00 Respiratory Pattern Normal 04/25/23 11:21 Blood Pressure 144/78 H 04/25/23 11:44 Blood Pressure Mean 100 04/25/23 11:44 Blood Pressure Source Monitor 04/25/23 11:44 Blood Pressure Position Semi-Fowlers 04/25/23 11:44 Blood Pressure Location Right Arm 04/25/23 11:44 Baseline BP 147/71 04/23/23 12:10 Pulse Ox 95 04/25/23 11:44 Oxygen Delivery Method Nasal Cannula 04/25/23 11:44 Oxygen Flow Rate (L/min) 2 04/25/23 11:44 Fraction of Inspired Oxygen (FIO2) 92 04/22/23 21:29 I&O: I&O Last 24 Hours 04/24/23 04/25/23 04/25/23 23:59 11:59 23:59 Intake Total 1414 / 2865.75 1050.25 / 1800.25 750 / 1800.25 Balance 1414 / 2865.75 1050.25 / 1800.25 750 / 1800.25 I&O: Total Stay 04/21/23 08:53 thru 04/25/23 12:39 Intake Total 35677.50 Balance 25528.50 Current Meds Ordered / Administered: Current meds ordered / Administered Generic Name Dose Route Start Last Admin Trade Name Freq PRN Reason Stop Dose Admin Acetaminophen 1,000 mg 04/21/23 16:09 04/24/23 18:33 Acetaminophen 500 Mg Tablet PO 1,000 mg Q8H PRN Administration Pain 1-1010 Albuterol Sulfate 2.5 mg 04/21/23 16:09 Albuterol 2.5 Mg/3 Ml Vial.Neb. INHALATION Q2H PRN PRN SHORTNESS OF BREATH Albuterol/Ipratropium 3 ml 04/21/23 16:09 04/25/23 11:20 Ipratropium/Albuterol Sulfate 3 Ml Ampul.Neb INHALATION 3 ml Q4H.RT JOCELINE Administration Alendronate Sodium 70 mg 04/23/23 06:00 04/23/23 06:17 Alendronate Sodium 70 Mg Tablet PO 70 mg FR JOCELINE Administration Aspirin 81 mg 04/22/23 08:00 04/25/23 09:54 Aspirin 81 Mg Tab.Chew PO 81 mg DAILY@0800 JOCELINE Administration Calcium/Vitamin D 1 tablet 04/21/23 17:00 04/25/23 09:54 Calcium Carb/Vitamin D 1 Tablet Tablet PO 1 tablet BIDCM JOCELINE Administration Cholecalciferol 25 mcg 04/22/23 08:00 04/25/23 09:54 Cholecalciferol (Vit D3) 25 Mcg Tablet (1,000 Units) PO 25 mcg DAILYCM JOCELINE Administration Clonazepam 0.5 mg 04/21/23 22:00 04/25/23 10:01 Clonazepam 0.5 Mg Tablet PO 0.5 mg BID JOCELINE Administration Dextrose 0 gm 04/21/23 16:09 Dextrose 50%-Water 25 Gm/50 Ml Disp.Syrin IV X1 PRN HYPOGLYCEMIA Protocol Dicyclomine HCl 20 mg 04/21/23 22:00 04/25/23 14:43 Dicyclomine 10 Mg Capsule PO 20 mg TID JOCELINE Administration Enoxaparin Sodium 40 mg 04/22/23 10:00 04/25/23 09:55 Enoxaparin 40 Mg/0.4 Ml Syringe SC 40 mg DAILY JOCELINE Administration Fluticasone Propionate 2 spray 04/22/23 10:00 04/25/23 09:56 Fluticasone 0.05% 1 [place] Nasal.Sry NASAL 2 spray DAILY JOCELINE Administration Furosemide 40 mg 04/25/23 10:00 04/25/23 09:54 Furosemide 40 Mg Tablet PO 40 mg DAILY JOCELINE Administration Protocol Gabapentin 200 mg 04/21/23 16:09 04/25/23 14:43 Gabapentin 100 Mg Capsule PO 200 mg TID JOCELINE Administration Glucagon 1 mg 04/21/23 16:09 Glucagon 1 Mg/Ml Syringe IM X1 PRN HYPOGLYCEMIA Glycerin/Hypromellose/Polyethylene 1 drp 04/21/23 18:00 04/25/23 11:27 Glycerin/Hypromellose/[id number] 15 Ml Bottle EACH EYE 1 drp Q6H JOCELINE Administration Guaifenesin 1,200 mg 04/21/23 22:00 04/25/23 09:55 Guaifenesin 1,200 Mg Tablet PO 1,200 mg BID JOCELINE Administration Ferric Sodium Gluconate 270 mls @ 135 mls/hr 04/22/23 16:00 04/25/23 12:39 Complex 250 mg/ Sodium IV Infused Chloride DAILY JOCELINE Infusion Sodium Chloride 250 mls @ 15 mls/hr 04/23/23 07:15 04/25/23 10:22 IV 0 mls/hr .[id number] PRN Infusion Additional IVPB Infusion Sodium Chloride 250 mls @ 15 mls/hr 04/23/23 07:15 IV .[id number] PRN Saline Flush Insulin Glargine 36 unit 04/22/23 10:00 04/25/23 10:07 Insulin Glargine-Yfgn 100 Unit/Ml Pen SC 36 unit DAILY JOCELINE Administration Insulin Glargine 20 unit 04/22/23 22:00 04/24/23 22:39 Insulin Glargine-Yfgn 100 Unit/Ml Pen SC 20 unit QHS JOCELINE Administration Insulin Human Lispro 0 unit 04/21/23 16:09 04/25/23 11:26 Insulin Lispro 100 Unit/Ml Insuln.Pen SC 2 unit TIDAC JOCELINE Administration Protocol Levetiracetam 500 mg 04/21/23 22:00 04/25/23 09:55 Levetiracetam 500 Mg Tablet PO 500 mg BID JOCELINE Administration Levofloxacin 500 mg 04/25/23 06:00 04/25/23 05:33 Levofloxacin 500 Mg Tablet PO 500 mg DAILY@0600 JOCELINE Administration Magnesium Chloride 128 mg 04/22/23 10:00 04/25/23 09:56 Magnesium Chloride 64 Mg Delay Rel.Tablet PO 128 mg DAILY JOCELINE Administration Melatonin 3 mg 04/21/23 16:09 Melatonin 3 Mg Tablet PO QHS PRN PRN INSOMNIA Memantine 10 mg 04/21/23 22:00 04/25/23 09:54 Memantine Hydrochloride 10 Mg Tablet PO 10 mg BID JOCELINE Administration Ondansetron HCl 4 mg 04/21/23 16:09 Ondansetron 4 Mg/2 Ml Vial IV Q8H PRN PRN NAUSEA/VOMITING Pantoprazole Sodium 40 mg 04/25/23 10:00 04/25/23 09:54 Pantoprazole Sodium 40 Mg Tablet PO 40 mg DAILY JOCELINE Administration Potassium Chloride 20 meq 04/25/23 08:00 04/25/23 09:55 Potassium Chloride Oral Tablet 20 Meq PO 20 meq BIDCM JOCELINE Administration Prednisone 20 mg 04/25/23 08:00 04/25/23 09:54 Prednisone 20 Mg Tablet PO 20 mg BREAKFAST JOCELINE Administration Rosuvastatin Calcium 20 mg 04/21/23 22:00 04/24/23 22:27 Rosuvastatin 20 Mg Tablet PO 20 mg QHS JOCELINE Administration Senna/Docusate Sodium 2 tablet 04/21/23 16:09 Senna/Docusate Sodium 1 Tablet PO BID PRN PRN Constipation Sodium Chloride 10 - 40 ml 04/23/23 07:15 04/23/23 12:45 0.9% Saline Lock 10 Ml Syringe IV 10 ml UD PRN Administration SALINE FLUSH Throat Lozenges 1 lozenge 04/21/23 16:09 Benzocaine/Menthol 1 Lozenge MUCOUS MEM Q2H PRN PRN SORE THROAT Venlafaxine HCl 75 mg 04/21/23 22:00 04/25/23 09:54 Venlafaxine Hcl 75 Mg Tablet PO 75 mg BID JOCELINE Administration Lab / Micro Data 04/24/23 06:41 04/24/23 06:41 Labs: Laboratory Results - last 24 hr 04/22/23 22:06: POC Glucose > 500 H* 04/22/23 22:07: POC Glucose 454 H* 04/24/23 17:22: POC Glucose 421 H 04/24/23 22:39: POC Glucose 456 H* 04/25/23 05:36: POC Glucose 249 H 04/25/23 11:11: POC Glucose 228 H Assessment and Plan . Assessment and plan: Critical Care Time: The entirety of this encounter was done via Telemedicine
[2023-04-25 17:10] LABS: Bedside Glucose 348 mg/dL (74-106)
--- NOTE | 2023-04-25 17:56 | PCM.PN.HOSP ---
Reason for Visit Reason for Visit: Diagnoses Elevated white blood cell count, unspecified (04/21/23) Acidosis, unspecified (04/21/23) Pneumonia, unspecified organism (04/21/23) Bronchiectasis with (acute) exacerbation (04/21/23) Pneumonitis due to inhalation of food and vomit (04/21/23) Respiratory failure, unspecified, unspecified whether with hypoxia or hypercapnia (04/21/23) Hypoxemia (04/21/23) Hyperglycemia, unspecified (04/21/23) Other specified abnormal findings of blood chemistry (04/21/23) Subjective Subjective Patient was seen and examined today, her blood sugars have been running high, I will adjust her long-acting insulin. Objective Data Objective Data Vital Signs: Vital Signs Temp Pulse Resp BP Pulse Ox O2 Del Method O2 Flow Rate 97.8 F 78 12 122/78 H 96 Nasal Cannula 2 04/25/23 17:23 04/25/23 17:23 04/25/23 17:23 04/25/23 17:23 04/25/23 17:23 04/25/23 17:23 04/25/23 17:23 FiO2 92 04/22/23 21:29 Oxygen Flow Rate (L/min) 2 Oxygen Delivery Method Nasal Cannula Weight: 90.038 kg Body Mass Index (BMI) 35.2 Intake & Output: Intake and Output for Last 24 Hours 04/23/23 04/24/23 04/25/23 23:59 23:59 23:59 Intake Total 1217.5 / 1417.5 2465.75 / 2865.75 2160.25 / 2160.25 Balance 1217.5 / 1417.5 2465.75 / 2865.75 2160.25 / 2160.25 Lab / Micro Data 04/24/23 06:41 04/24/23 06:41 Labs: Laboratory Results - last 24 hr 04/24/23 22:39: POC Glucose 456 H* 04/25/23 05:36: POC Glucose 249 H 04/25/23 11:11: POC Glucose 228 H 04/25/23 16:48: POC Glucose 348 H Micro: Microbiology 04/22/23 10:40 Sputum, Expectorated/Coughed Gram Stain - Final 04/22/23 10:40 Sputum, Expectorated/Coughed Respiratory Culture - Final 04/21/23 10:29 Blood Culture (Wb) #2 - Right Wrist Blood Culture - Preliminary No growth in 48 hours. 04/21/23 09:25 Blood Culture (Wb) - Left Hand Blood Culture - Preliminary No growth in 48 hours. 04/22/23 21:50 Stool Stool Occult Blood (ANAMARIA) - Final 04/21/23 16:15 Mucosa - Nasopharyngeal Respiratory Panel (PCR) - Final 04/21/23 19:30 Urine, Random Legionella Antigen - Final 04/21/23 19:30 Urine, Random Streptococcus pneumoniae Antigen (M - Final 04/21/23 09:50 Mucosa - Nose SARS-CoV-2, Influenza & RSV (PCR) - Final Physical Exam Narrative alert and no apparent distress General Appearance: cooperative, well kempt and well developed Orientation / Consciousness: awake, oriented to person and oriented to place HEENT normocephalic, head/scalp atraumatic and moist oral mucous membranes Eyes PERRL, EOMs intact bilaterally and conjunctivae normal Neck supple, no JVD, thyroid normal and no carotid bruits General: trachea midline Resp normal respiratory effort Resp Narrative: Scattered expiratory rhonchi are noted bilaterally Auscultation: rhonchi; Negative for rales or wheezes Cardio regular rate, regular rhythm, S1 normal heart sound, S2 normal heart sound, no murmurs, no rub and no gallops GI normal to inspection, nondistended, normoactive bowel sounds, soft to palpation, non-tender and non-distended Extremity no clubbing, cyanosis or edema Skin no rashes or lesions noted General Skin Exam: no breakdown Neuro CN's II-XII intact bilaterally, moves all extremities, no focal motor deficits and no sensory deficits noted Sensorium / Orientation: awake, alert, oriented to person and oriented to place Speech: speech normal Psych affect normal Assessment & Plan Assessment/Plan (1) Bronchiectasis: QUALIFIERS: Bronchiectasis type: with acute exacerbation Qualified Code(s): J47.1 - Bronchiectasis with (acute) exacerbation (2) Respiratory failure: PLAN: Plan 1. Acute hypoxic respiratory failure secondary to community-acquired pneumonia and underlying interstitial lung disease-patient's pulse ox will be monitored oxygen will be titrated if possible, patient will remain on antibiotics-I decreased the patient's corticosteroid dosage yesterday, she is now on oral antibiotics, it is likely that arrangements will have to be made to set her up for oxygen at her assisted living facility. #2 community-acquired pneumonia-patient is currently on oral Levaquin, she will complete a 7 to 10-day course #3 interstitial lung disease-complicates care, medical course, recovery, and prognosis, patient may benefit from follow-up with pulmonary medicine as an outpatient #4 exacerbation of COPD-patient is on oral prednisone #5 dementia-complicates care, medical course, recovery, and prognosis #6 bronchiectasis-continue aerosol treatments and monitor pulse ox #7 type 2 diabetes-patient's blood sugars have been running high due to the corticosteroid usage, I have elected to increase her basal insulin. She is on sliding scale insulin per fingerstick blood sugars. Total clinical time spent by myself addressing the patient's medical issues, reviewing all of her data, and collaborating with patient's care team: 35 minutes Charges/Coding Visit Charges Inpatient E&M: 56230 Subs Hosp L2
--- NOTE | 2023-04-25 18:21 | NURSING ---
This RN is aware of charting and vital signs by Nick MCKENNA.
[2023-04-25] MEDS: Insulin Glargine-YFGN 100 UNIT/ML Pen 30 UNIT SC (21:53)
[2023-04-25] MEDS: Rosuvastatin 20 MG Tablet PO (21:54)
[2023-04-25] MEDS: Acetaminophen 500 MG Tablet 1000 MG PO (22:52)
[2023-04-26] VITALS (8 sets, daily range): BP systolic 113–130; BP diastolic 51–76; PULSE 77–102; RESP 16–20; TEMP 36.7–37.1; O2SAT 2–97
[2023-04-26 01:04] LABS: Bedside Glucose 405 mg/dL (74-106)
[2023-04-26] MEDS: Ipratropium/Albuterol Sulfate 3 ML AMPUL.NEB INHALATION ×4 (03:55→14:27)
[2023-04-26] MEDS: Dicyclomine 10 MG Capsule 20 MG PO ×2 (04:29→15:25)
[2023-04-26] MEDS: Glycerin/Hypromellose/PEG400 15 ml Bottle 1 DRP EACH EYE ×2 (04:29→12:01)
[2023-04-26] MEDS: Gabapentin 100 MG Capsule 200 MG PO ×2 (04:30→15:23)
[2023-04-26] MEDS: levoFLOXacin 500 MG Tablet PO (04:30)
[2023-04-26] MEDS: Insulin Lispro 100 UNIT/ML INSULN.PEN SC ×2 (06:32→12:01)
[2023-04-26] MEDS: Acetaminophen 500 MG Tablet 1000 MG PO (06:36)
[2023-04-26 06:52] LABS: Bedside Glucose 195 mg/dL (74-106)
[2023-04-26] MEDS: Potassium Chloride Oral Tablet 20 MEQ PO (08:43)
[2023-04-26] MEDS: Aspirin 81 MG TAB.CHEW PO (08:43)
[2023-04-26] MEDS: Cholecalciferol (VIT D3) 25 MCG TABLET (1,000 UNITS) PO (08:44)
[2023-04-26] MEDS: Calcium Carb/Vitamin D 1 TABLET Tablet PO (08:44)
[2023-04-26] MEDS: predniSONE 20 MG Tablet PO (08:45)
[2023-04-26] MEDS: Magnesium Chloride 64 MG Delay Rel.Tablet 128 MG PO (10:33)
[2023-04-26] MEDS: Venlafaxine HCl 75 MG Tablet PO (10:33)
[2023-04-26] MEDS: Pantoprazole Sodium 40 MG Tablet PO (10:33)
[2023-04-26] MEDS: Vibegron 75 MG TABLET PO (10:34)
[2023-04-26] MEDS: Enoxaparin 40 MG/0.4 ML Syringe SC (10:34)
[2023-04-26] MEDS: Memantine Hydrochloride 10 MG Tablet PO (10:34)
[2023-04-26] MEDS: Fluticasone 0.05% 1 SPRAY NASAL.SRY 2 SPRAY NASAL (10:34)
[2023-04-26] MEDS: levETIRAcetam 500 MG Tablet PO (10:34)
[2023-04-26] MEDS: guaiFENesin 1,200 MG Tablet 1200 MG PO (10:35)
[2023-04-26] MEDS: clonazePAM 0.5 MG Tablet PO (10:38)
[2023-04-26] MEDS: Sodium Ferric Gluconat/Sucrose 250 MG in 0.9% Normal Saline (250mL Bag) 250 ML 135 MG IV (10:38)
[2023-04-26] MEDS: 0.9% Saline Lock 10 ML Syringe IV (10:38)
[2023-04-26] MEDS: Furosemide 40 MG Tablet PO (10:38)
[2023-04-26] MEDS: Insulin Glargine-YFGN 100 UNIT/ML Pen 42 UNIT SC (10:55)
[2023-04-26 11:19] LABS: Bedside Glucose 189 mg/dL (74-106)
--- NOTE | 2023-04-26 12:44 | CASEMGMT ---
Addendum entered by Agueda Tian 04/26/23 14:55: Pt qual[place]. [place] [facility] [place] [facility] [place] this [place]. Original Note: RN CM into pt room, pt and son aware of dc plan of HH and oxygen. Reviewed homegoing oxygen instructions with both pt and son at this time. They deny further needs at this time.
--- NOTE | 2023-04-26 16:21 | DCINST_ITS ---
Discharge Instructions Diet Discharge Diet: 1800 Calorie Control Diet Activity Discharge Activity: Return to Normal Activity Weight Bearing Status: Full weight bearing Follow Up Care Test Results: Test results from this visit will be discussed in further detail at your follow- up appointment, if applicable. Discharge Plan Admission Admit Date/Time: 04/21/23 11:39 Primary Reason for Your Visit: Pneumonia, exacerbation of COPD Attending Provider: Pablo Salas Primary Care Provider: Jh Hewitt Consulting Providers: Babatunde Machado; Juan Diaz; Haseeb Vela; Rajendra Sanders; Roney Ceron; Yola Wasserman; Lobo Marks; Sandra Bryant; Ignacia Membreno; Everardo Fiore; Donis Peters; Mert Pike; Dev Noe; Jessi Heath Instructions Additional Instructions / Restrictions: Wear oxygen at 2 L/min while ambulating, you will not need oxygen at rest Discharge Orders/Prescriptions Prescriptions: New furosemide 40 mg Tablet 40 mg PO DAILY Qty: 30 0RF prednisone 20 mg Tablet 20 mg PO BREAKFAST Qty: 4 0RF Rx Instructions: Take 1 daily for 4 days starting on 04/27/2023 and then discontinue potassium chloride 20 mEq Tablet,Er Particles/Crystals 20 meq PO BIDCM Qty: 60 0RF levofloxacin 500 mg Tablet 500 mg PO DAILY@0600 Qty: 2 0RF Rx Instructions: Start on 04/27/2023 ferrous sulfate 325 mg (65 mg iron) tablet 325 mg PO DAILY Qty: 30 0RF Continued aspirin 81 MG tablet,chewable 81 mg PO DAILY@0800 gabapentin 100 MG capsule 200 mg PO TID venlafaxine 75 MG tablet 75 mg PO BID clonazepam 0.5 MG tablet 0.5 mg PO BID albuterol sulfate [Ventolin HFA] 1 INHALER inhaler 1 puff inhalation Q4H PRN (Reason: Wheezing) rosuvastatin [Crestor] 20 MG tablet 20 mg PO QHS cholecalciferol (vitamin D3) [Vitamin D3] 1,000 tablet 25 mcg PO DAILY Patient Comments: levetiracetam 500 mg Tablet 500 mg PO BID insulin glargine [Lantus Solostar U-100 Insulin] 100 unit/mL (3 mL) Insulin Pen 16 unit SUBCUT QHS insulin glargine [Lantus Solostar U-100 Insulin] 100 unit/mL (3 mL) Insulin Pen 36 unit SUBCUT DAILY magnesium oxide 400 mg magnesium Capsule 400 mg PO DAILY Humalog KwikPen Insulin 200 unit/mL (3 mL) Insulin Pen See Protocol SUBCUT TID Protocol: 6. Sliding Scale Insulin Custom Condition: mg/dl range Dose/Route: Number of Units Condition: 200-249 Dose/Route: 2 Condition: 250-299 Dose/Route: 4 Condition: 300-349 Dose/Route: 6 Condition: 350-399 Dose/Route: 8 Condition: 400-449 Dose/Route: 10 Condition: 450-499 Dose/Route: 12 Condition: 500+ Dose/Route: CALL MD Protocol Text: Custom Sliding Scale Rx Instructions: sliding scale fluticasone propionate 50 mcg/actuation spray,suspension 2 spray INTRANASAL DAILY Gemtesa 75 mg tablet 75 mg PO DAILY guaifenesin [Mucus Relief ER] 1,200 mg tablet extended release 12hr 1,200 mg PO BID Trulicity 0.75 mg/0.5 mL pen injector 0.75 mg subcut MO alendronate 70 mg tablet 70 mg PO FR dicyclomine 20 mg tablet 20 mg PO TID fluticasone furoate-vilanterol [Breo Ellipta] 100-25 mcg/dose blister with device 1 ea inhalation DAILY memantine 10 mg tablet 10 mg PO BID metformin 1,000 mg tablet 1,000 mg PO BID omeprazole 40 mg capsule,delayed release(DR/EC) 40 mg PO DAILY calcium carbonate-vitamin D3 [Oyster Shell Calcium-Vit D3] 500 mg-5 mcg (200 unit) tablet 1 tab PO BIDCM Systane Gel 0.4-0.3 % drops,gel 1 drp ophthalmic (eye) 4X/DAY Rx Instructions: EACH EYE albuterol sulfate 2.5 mg /3 mL (0.083 %) solution for nebulization 2.5 mg inhalation Q6H PRN (Reason: shortness of breath or wheezing) acetaminophen 500 MG tablet 1,000 mg PO Q8H PRN (Reason: Pain) Discontinued Systane Gel 0.3 % gel 1 drp EACH EYE Q6H Referrals / Follow Up: Jh Hewitt MD [Primary Care Provider] - Within 2 Weeks Disposition Disposition (needs filled in before D/C Order can be placed): Assisted Living
--- NOTE | 2023-04-26 16:35 | DS.PCM_ITS ---
Providers Date of Admission: 04/21/23 Date of Discharge: 04/26/23 Primary Care Physician: Dr. hJ Hewitt MD Consultations 04/22/23 15:25 Consult: Gastroenterology Routine Consulting Provider: JeannetteBabatunde Reason for Consult: Fe deficiency anemia EMERGENT Consult: No Notified: Yes Date Notified: 04/22/23 Time Notified: 15:25 Method of Notification: Text 04/23/23 07:17 Consult: Chiropractor Assistant / Pulmonary Medicine Routine Consulting Provider: Intensivists/Pulmonary Med Reason for Consult: SOB/Hypoxia EMERGENT Consult: No Notified: Yes Date Notified: 04/23/23 Time Notified: 07:17 Method of Notification: Verbal Reason For Visit: HYPOXIA 2/2 PNA Diagnosis Discharge Diagnosis (1) Bronchiectasis: Status: Acute Code(s): J47.9 - Bronchiectasis, uncomplicated Qualifiers: Bronchiectasis type: with acute exacerbation Qualified Code(s): J47.1 - Bronchiectasis with (acute) exacerbation (2) Respiratory failure: Status: Acute Code(s): J96.90 - Respiratory failure, unspecified, unspecified whether with hypoxia or hypercapnia Plan 1. Acute hypoxic respiratory failure secondary to community-acquired pneumonia and underlying interstitial lung disease-patient's pulse ox will be monitored oxygen will be titrated if possible, patient will remain on antibiotics-I decreased the patient's corticosteroid dosage yesterday, she is now on oral antibiotics, it is likely that arrangements will have to be made to set her up for oxygen at her assisted living facility. #2 community-acquired pneumonia-patient is currently on oral Levaquin, she will complete a 7 to 10-day course #3 interstitial lung disease-complicates care, medical course, recovery, and prognosis, patient may benefit from follow-up with pulmonary medicine as an outpatient #4 exacerbation of COPD-patient is on oral prednisone #5 dementia-complicates care, medical course, recovery, and prognosis #6 bronchiectasis-continue aerosol treatments and monitor pulse ox #7 type 2 diabetes-patient's blood sugars have been running high due to the corticosteroid usage, I have elected to increase her basal insulin. She is on sliding scale insulin per fingerstick blood sugars. Total clinical time spent by myself addressing the patient's medical issues, reviewing all of her data, and collaborating with patient's care team: 35 minutes Medications at Discharge Home Medications aspirin 81 mg chewable tablet 81 mg PO DAILY@0800 heart health 03/09/13 gabapentin 100 mg capsule 200 mg PO TID neuropathy 03/09/13 clonazepam 0.5 mg tablet 0.5 mg PO BID 10/19/13 venlafaxine 75 mg tablet 75 mg PO BID depression 10/19/13 albuterol sulfate 90 mcg/actuation aerosol inhaler (Ventolin HFA) 1 puff inhalation Q4H PRN Wheezing 01/03/14 cholecalciferol (vitamin D3) 25 mcg (1,000 unit) tablet (Vitamin D3) 25 mcg PO DAILY supplement 01/06/17 rosuvastatin 20 mg tablet (Crestor) 20 mg PO QHS cholesterol 01/06/17 insulin glargine 100 unit/mL (3 mL) subcutaneous pen (Lantus Solostar U-100 Insulin) 16 unit subcut QHS 10/22/20 insulin glargine 100 unit/mL (3 mL) subcutaneous pen (Lantus Solostar U-100 Insulin) 36 unit subcut DAILY 10/22/20 insulin lispro 200 unit/mL (3 mL) subcutaneous pen (Humalog KwikPen U-200 Insulin) See Protocol subcut TID sliding scale 10/22/20 levetiracetam 500 mg tablet 500 mg PO BID 10/22/20 magnesium oxide 400 mg PO DAILY 10/22/20 fluticasone propionate 50 mcg/actuation nasal spray,suspension 2 spray intranasal DAILY 12/05/22 guaifenesin 1,200 mg tablet, extended release 12 hr (Mucus Relief ER) 1,200 mg PO BID 12/05/22 vibegron 75 mg tablet (Gemtesa) 75 mg PO DAILY 12/05/22 acetaminophen 500 mg tablet 1,000 mg PO Q8H PRN Pain 04/21/23 albuterol sulfate 2.5 mg/3 mL (0.083 %) solution for nebulization 2.5 mg inhalation Q6H PRN shortness of breath or wheezing 04/21/23 alendronate 70 mg tablet 70 mg PO FR 04/21/23 calcium carbonate 500 mg-vitamin D3 5 mcg (200 unit) tablet (Oyster Shell Calcium-Vitamin D3) 1 tab PO BIDCM 04/21/23 dicyclomine 20 mg tablet 20 mg PO TID 04/21/23 dulaglutide 0.75 mg/0.5 mL subcutaneous pen injector (Trulicity) 0.75 mg subcut MO 04/21/23 fluticasone furoate 100 mcg-vilanterol 25 mcg/dose inhalation powder (Breo Ellipta) 1 ea inhalation DAILY 04/21/23 memantine 10 mg tablet 10 mg PO BID 04/21/23 metformin 1,000 mg tablet 1,000 mg PO BID 04/21/23 omeprazole 40 mg capsule,delayed release 40 mg PO DAILY 04/21/23 peg 400-propylene glycol 0.4 %-0.3 % eye gel drops (Systane Gel) 1 drp ophthalmic (eye) 4X/DAY 04/21/23 ferrous sulfate 325 mg (65 mg iron) tablet 325 mg PO DAILY #30 tabs 04/26/23 furosemide 40 mg tablet 40 mg PO DAILY #30 tabs 04/26/23 levofloxacin 500 mg tablet 500 mg PO DAILY@0600 #2 tabs 04/26/23 potassium chloride 20 mEq tablet,extended release(part/cryst) 20 meq PO BIDCM #60 tabs 04/26/23 prednisone 20 mg tablet 20 mg PO BREAKFAST #4 tabs 04/26/23 Hospital Course Operations None Procedures None Summary of Care Provided Minutes Spent on Discharge: 32 Hospital Course: This 78-year-old white female was seen in the emergency room at [facility] with complaints of feeling unwell x 3 days, she also complained of shortness of breath and a cough productive of white phlegm. Patient currently lives in assisted living, CBC showed an elevated white blood cell count at 23.4, chemistries were unremarkable, D-dimer was elevated at 2.38, CT of the chest was ordered which showed infiltrates suggestive of pneumonia but no PE. Patient was started on Rocephin and Zithromax IV and she was admitted to [facility]. Patient required supplemental oxygen to maintain her pulse ox above 90%, she was treated with aerosol treatments, IV corticosteroids, and IV antibiotics. Patient made slow progress during her hospitalization and could not be weaned off of oxygen. Home O2 qualification documentation was reviewed, patient needed 2 L of oxygen while ambulating to maintain a pulse ox of 92%, at rest patient did not require any oxygen and was 95% on room air. Patient requires portable oxygen due to the fact she is ambulatory within and outside the home. On 04/26/2023, patient was seen and examined: On examination she appeared in good health and spirits, she does not appear to be in any distress. Vital signs as documented. Skin warm and dry and without overt rashes. Neck without JVD, thyroid appears normal, trachea is midline, neck is supple. Lungs clear, normal air movement was noted. Heart exam notable for regular rhythm, normal sounds and absence of murmurs, rubs or gallops. Abdomen unremarkable and without evidence of organomegaly, masses, or abdominal aortic enlargement, bowel sounds are present in all 4 quadrants, no abdominal tenderness was noted. Extremities nonedematous, no cyanosis was noted, no clubbing was noted. Neuro: Cranial nerves II through XII are grossly intact, no focal motor deficits were noted, sensation to light touch and pinprick is intact, motor exam 5/5 throughout. Psych: Patient is alert and oriented x3, she does not appear anxious or depressed, she does not appear agitated. Patient was discharged to her assisted living facility on 04/26/2023 in stable condition Weight / BMI Weight Weight: 90.038 kg Body Mass Index (BMI) 35.2 ABG / Lab / Microbiology Data 04/24/23 06:41 04/24/23 06:41 Laboratory: Laboratory Results - last 24 hr 04/25/23 16:48: POC Glucose 348 H 04/25/23 21:51: POC Glucose 405 H 04/26/23 06:32: POC Glucose 195 H 04/26/23 10:58: POC Glucose 189 H Microbiology: Microbiology 04/21/23 10:29 Blood Culture (Wb) #2 - Right Wrist Blood Culture - Final No growth in 5 days. 04/21/23 09:25 Blood Culture (Wb) - Left Hand Blood Culture - Final No growth in 5 days. 04/22/23 10:40 Sputum, Expectorated/Coughed Gram Stain - Final 04/22/23 10:40 Sputum, Expectorated/Coughed Respiratory Culture - Final 04/22/23 21:50 Stool Stool Occult Blood (ANAMARIA) - Final 04/21/23 16:15 Mucosa - Nasopharyngeal Respiratory Panel (PCR) - Final 04/21/23 19:30 Urine, Random Legionella Antigen - Final 04/21/23 19:30 Urine, Random Streptococcus pneumoniae Antigen (M - Final 04/21/23 09:50 Mucosa - Nose SARS-CoV-2, Influenza & RSV (PCR) - Final D/C Instructions Discharge Diet: 1800 Calorie Control Diet Weight Bearing Status: Full weight bearing Meaningful Use Info Meaningful Use Diagnoses (Choose all that apply): None applicable Discharge Plan Admission Admit Date/Time: 04/21/23 11:39 Primary Reason for Your Visit: Pneumonia, exacerbation of COPD Attending Provider: Pablo Salas Primary Care Provider: Jh Hewitt Consulting Providers: Babatunde Machado; Juan Diaz; Haseeb Vela; Rajendra Sanders; Roney Ceron; Yola Wasserman; Lobo Marks; Sandra Bryant; Ignacia Membreno; Everardo Fiore; Donis Peters; Mert Pike; Dev Noe; Jessi Heath Instructions Additional Instructions / Restrictions: Wear oxygen at 2 L/min while ambulating, you will not need oxygen at rest Discharge Orders/Prescriptions Prescriptions: New furosemide 40 mg Tablet 40 mg PO DAILY Qty: 30 0RF prednisone 20 mg Tablet 20 mg PO BREAKFAST Qty: 4 0RF Rx Instructions: Take 1 daily for 4 days starting on 04/27/2023 and then discontinue potassium chloride 20 mEq Tablet,Er Particles/Crystals 20 meq PO BIDCM Qty: 60 0RF levofloxacin 500 mg Tablet 500 mg PO DAILY@0600 Qty: 2 0RF Rx Instructions: Start on 04/27/2023 ferrous sulfate 325 mg (65 mg iron) tablet 325 mg PO DAILY Qty: 30 0RF Continued aspirin 81 MG tablet,chewable 81 mg PO DAILY@0800 gabapentin 100 MG capsule 200 mg PO TID venlafaxine 75 MG tablet 75 mg PO BID clonazepam 0.5 MG tablet 0.5 mg PO BID albuterol sulfate [Ventolin HFA] 1 INHALER inhaler 1 puff inhalation Q4H PRN (Reason: Wheezing) rosuvastatin [Crestor] 20 MG tablet 20 mg PO QHS cholecalciferol (vitamin D3) [Vitamin D3] 1,000 tablet 25 mcg PO DAILY Patient Comments: levetiracetam 500 mg Tablet 500 mg PO BID insulin glargine [Lantus Solostar U-100 Insulin] 100 unit/mL (3 mL) Insulin P en 16 unit SUBCUT QHS insulin glargine [Lantus Solostar U-100 Insulin] 100 unit/mL (3 mL) Insulin Pen 36 unit SUBCUT DAILY magnesium oxide 400 mg magnesium Capsule 400 mg PO DAILY Humalog KwikPen Insulin 200 unit/mL (3 mL) Insulin Pen See Protocol SUBCUT TID Protocol: 6. Sliding Scale Insulin Custom Condition: mg/dl range Dose/Route: Number of Units Condition: 200-249 Dose/Route: 2 Condition: 250-299 Dose/Route: 4 Condition: 300-349 Dose/Route: 6 Condition: 350-399 Dose/Route: 8 Condition: 400-449 Dose/Route: 10 Condition: 450-499 Dose/Route: 12 Condition: 500+ Dose/Route: CALL Protocol Text: Custom Sliding Scale Rx Instructions: sliding scale fluticasone propionate 50 mcg/actuation spray,suspension 2 spray INTRANASAL DAILY Gemtesa 75 mg tablet 75 mg PO DAILY guaifenesin [Mucus Relief ER] 1,200 mg tablet extended release 12hr 1,200 mg PO BID Trulicity 0.75 mg/0.5 mL pen injector 0.75 mg subcut MO alendronate 70 mg tablet 70 mg PO FR dicyclomine 20 mg tablet 20 mg PO TID fluticasone furoate-vilanterol [Breo Ellipta] 100-25 mcg/dose blister with device 1 ea inhalation DAILY memantine 10 mg tablet 10 mg PO BID metformin 1,000 mg tablet 1,000 mg PO BID omeprazole 40 mg capsule,delayed release(DR/EC) 40 mg PO DAILY calcium carbonate-vitamin D3 [Oyster Shell Calcium-Vit D3] 500 mg-5 mcg (200 unit) tablet 1 tab PO BIDCM Systane Gel 0.4-0.3 % drops,gel 1 drp ophthalmic (eye) 4X/DAY Rx Instructions: EACH EYE albuterol sulfate 2.5 mg /3 mL (0.083 %) solution for nebulization 2.5 mg inhalation Q6H PRN (Reason: shortness of breath or wheezing) acetaminophen 500 MG tablet 1,000 mg PO Q8H PRN (Reason: Pain) Discontinued Systane Gel 0.3 % gel 1 drp EACH EYE Q6H Referrals / Follow Up: Jh Hewitt MD [Primary Care Provider] - Within 2 Weeks Disposition Disposition (needs filled in before D/C Order can be placed): Assisted Living Charges/Coding Visit Charges Inpatient E&M: 39643 Disch Hosp >30min
--- NOTE | 2023-04-26 16:35 | PCM.HOSP.N ---
Hospitalist Note Patient is ambulatory in the home and community and requires home oxygen with portability, patient will need 2 L of oxygen while ambulating only, she will not need any oxygen at rest, she is expected to use oxygen in the home and community
--- NOTE | 2023-04-26 16:51 | CASEMGMT ---
Social Work Per aditya pt is ready for discharge back to [facility] today. Phone call to Janie at [facility] and updated on return. DC orders faxed. YULISSA Vee
== END 2023-04-26 16:53 | disposition home or self-care (01) | DRG 193 ==
LOC: ED 13:40 → MS3 15:43
PROVIDERS: Internal Medicine Gastroenterology; Admitting Provider Internal Medicine; Emergency Provider Emergency Medicine; PCP Internal Medicine; Visit Provider Internal Medicine
PROC: 0DJ08ZZ Inspection of Upper Intestinal Tract, Via Natural or Artificial Opening Endoscopic (ICD-10-PCS; CPT 43235; principal; 2023-04-23 11:25)
DX: J18.9 Pneumonia, unspecified organism (principal); J96.01 Acute respiratory failure with hypoxia; K21.01 Gastro-esophageal reflux disease with esophagitis, with bleeding; E87.20 Acidosis, unspecified; J44.0 Chronic obstructive pulmonary disease with (acute) lower respiratory infection; J44.1 Chronic obstructive pulmonary disease with (acute) exacerbation; J47.0 Bronchiectasis with acute lower respiratory infection; E11.22 Type 2 diabetes mellitus with diabetic chronic kidney disease; G40.909 Epilepsy, unspecified, not intractable, without status epilepticus; F03.90 Unspecified dementia, unspecified severity, without behavioral disturbance, psychotic disturbance, mood disturbance, and anxiety; N18.30 Chronic kidney disease, stage 3 unspecified; E11.40 Type 2 diabetes mellitus with diabetic neuropathy, unspecified; Z79.4 Long term (current) use of insulin; E11.65 Type 2 diabetes mellitus with hyperglycemia; J84.10 Pulmonary fibrosis, unspecified; J69.0 Pneumonitis due to inhalation of food and vomit; M06.9 Rheumatoid arthritis, unspecified; D50.0 Iron deficiency anemia secondary to blood loss (chronic); F32.A Depression, unspecified; K21.9 Gastro-esophageal reflux disease without esophagitis; F17.210 Nicotine dependence, cigarettes, uncomplicated; E78.00 Pure hypercholesterolemia, unspecified; K29.80 Duodenitis without bleeding; F41.9 Anxiety disorder, unspecified; Z66 Do not resuscitate; R53.81 Other malaise; Z79.51 Long term (current) use of inhaled steroids; Z79.82 Long term (current) use of aspirin; Z79.899 Other long term (current) drug therapy
CPT/HCPCS: 36415; 71045; 71275; 80048; 80053; 80202; 82274; 82728; 82962; 83036; 83540; 83550; 83605; 83735; 83880; 84100; 84443; 84484; 85025; 85379; 87040; 87070; 87205; 87449; 87631; 87633; 87641; 88305; 92526; 92610; 93005; 93306; 94640; 94668; 97110; 97116; 97162; 97530; 97802; 99252; 99285; 99406; J7030; J7040; J7050; Q9957; Q9967; A4216; G0463; J0295; J1940; J2405; J2916

== ENCOUNTER 2023-05-04 12:45 | Observation (INO) | payer MEDICARE, MEDICAID, SELFPAY ==
[2023-05-04] VITALS (20 sets, daily range): BP systolic 97–151; BP diastolic 50–72; PULSE 87–103; RESP 16–27; TEMP 36.3–37.1; O2SAT 85–98; BMI 34.9; BMI 33.7
--- NOTE | 2023-05-04 12:55 | CT_ITS ---
STUDY: CT BRAIN WITHOUT CONTRAST REASON FOR EXAM: Female, 78 years old. Altered mental status. RADIATION DOSAGE (If Supplied By Facility): CTDIvol = ( 44.99 ) mGy, DLP = ( 796.11 ) mGycm TECHNIQUE: Transaxial CT imaging of the brain was performed without administration of intravenous contrast material. Individualized dose optimization techniques were used for this CT. COMPARISON: Comparison is made with prior study dated December 19, 2022. FINDINGS: Normal soft tissue structures. Normal calvarium. There is mild cerebral atrophy with widening of the extra-axial spaces and ventricular dilatation. There are areas of decreased attenuation within the white matter tracts of the supratentorial brain, consistent with microvascular disease changes. Normal basal ganglia and thalami. Normal brainstem. There is mild cerebellar atrophy. There is no intracranial hemorrhage. There are no findings of an acute ischemic infarction. Normal visualized paranasal sinuses. CT/Brain/Head without Contrast IMPRESSION: Chronic involutional changes of the brain. Electronically Signed: Joaquín Kirby MD at 13:44 EDT ,
--- NOTE | 2023-05-04 12:55 | EKG12_ITS ---
Test Reason : UNRESPONSIVE Blood Pressure : / mmHG Vent. Rate : 088 BPM Atrial Rate : 088 BPM P-R Int : 154 ms QRS Dur : 078 ms QT Int : 356 ms P-R-T Axes : 045 015 063 degrees QTc Int : 430 ms Normal sinus rhythm Normal ECG Confirmed by CONSUELO NEELY MD ([id number]), online editor MARY LOU HINOJOSA ([id number]) on 05/05/2023 9:39:03 AM Referred By: Confirmed By:CONSUELO NEELY MD
[2023-05-04 13:14] LABS: Absolute Neutrophil Count 10.3 X10^3/uL (2.0-7.7); Basophil# 0.05 X10^3/uL; Basophil% 0.3 % (0-1); Eosinophil# 0.13 X10^3/uL; Eosinophils% 0.9 % (0-5); Hematocrit 32.4 % (37-47); Hemoglobin 9.6 g/dL (12.0-15.0); Mean Corp Hgb Conc 29.6 g/dL (32-36); Mean Corpuscular Hgb 24.2 pg (27.0-32.0); Mean Corpuscular Volume 81.8 fL (81-99); Mean Platelet Vol. 10.8 fl (6.2-12.0); Monocyte# 0.78 X10^3/uL; Monocyte% 5.5 % (0-10); NRBC Flagged by Analyzer 0 % (0-5); Neutrophil # 10.26 X10^3/uL (2.7-7.7); Neutrophil % 71.7 % (47-70); POSITIVE MORPHOLOGY YES; Platelet Count 281 K/mm3 (150-450); RBC Distribution Width CV 21.4 % (11.6-14.6); RBC Distribution Width SD 54.5 fl (35.1-43.9); Red Blood Count 3.96 M/mm3 (4.2-5.4); White Blood Count 14.3 K/mm3 (4.4-11.0)
[2023-05-04 13:16] LABS: Differential Indicated SCAN CRITERIA MET
[2023-05-04] MEDS: Naloxone 2 MG/2 ML Syringe NASAL (13:16)
--- NOTE | 2023-05-04 13:20 | RAD_ITS ---
STUDY: X-RAY CHEST REASON FOR EXAM: Female, 78 years old. Cough. Unresponsive. TECHNIQUE: Single AP portable view of the chest. COMPARISON: Comparison is made with prior study April 21, 2023. FINDINGS: EKG electrodes are seen. Stable increased bilateral interstitial reticular nodular pattern suggestive of scarring. There is no demonstrated pleural abnormality. Normal size heart. Normal mediastinum and kwasi. Normal visualized pulmonary arteries. There is atherosclerotic calcification of the aortic arch with tortuosity. There are diffuse degenerative changes of the visualized thoracic spine. Prior vertebroplasty of the L1 vertebrae. Normal visualized ribs, clavicles, and shoulders. There is no demonstrated abnormality of the visualized soft tissue structures of the upper abdomen. RAD/Chest 1 View (Portable) IMPRESSION: Stable increased reticular nodular pattern in both lungs worse at the lung bases suggestive of chronic scarring. Electronically Signed: Joaquín Kirby MD at 13:46 EDT ,
[2023-05-04 13:23] LABS: Alcohol, Blood (Medical)-Serum < 3.0 mg/dL
[2023-05-04 13:31] LABS: AST(SGOT) 28 U/L (15-37); Alanine Aminotransfer ALT/SGPT 37 U/L (13-56); Albumin, Serum 2.4 g/dL (3.2-5.0); Alkaline Phosphatase 154 U/L (45-117); Anion Gap 7 (5-15); BUN 21 mg/dL (7-18); BUN/Creat Ratio 16.8 RATIO (10-20); Bilirubin, Direct 0.13 mg/dL (0.00-0.30); Calcium,Total 8.4 mg/dL (8.5-10.1); Chloride 102 mmol/L (98-107); Creatinine, Serum 1.25 mg/dL (0.55-1.02); EST Glomerular Filtration Rate 44 mL/min (>60); Est Glom Filt Rate - Afr Amer 54 mL/min (>60); Estimated Creatinine Clearance 40.67 ml/min; Globulin 4.3 g/dL (2.2-4.2); Glucose 199 mg/dL (74-106); Potassium 4.2 mmol/L (3.5-5.1); Protein, Total 6.7 g/dL (6.4-8.2); Sodium Level 137 mmol/L (136-145); Troponin-I HS 11 pg/mL (3.0-54.0)
--- NOTE | 2023-05-04 13:31 | EX.ED.DYSGE1 ---
HPI History of Present Illness Chief Complaint: Unresponsive Informant: patient and EMS Narrative Narrative: 78-year-old female presenting to the emergency room with a chief complaint of unresponsive. EMS was called to [facility] for an unresponsive female. Reportedly the patient was recently admitted into the hospital with pneumonia. She was checked on by staff around 0900 hrs. and seem to be doing fine. Staff checked on her again just after the noon hour and found her unresponsive. EMS notes that her vital signs seems stable. They looked at her medication list did not see any narcotics on it. She is prescribed clonazepam. EMS and nursing both mention to me that her pupils seem smaller than would be expected. Business Technology Architect notes that when her arm is dropped near her head it does miss her head. Later in her initial evaluation the patient was awake and talking. She is currently denying any pain chest pain shortness of breath headache. She does not know what happened. She states the last thing she remembers was being in her recliner. [facility] Medical History Acidosis, lactic Acute dyspnea Anxiety Arthritis Aspiration pneumonia Back pain Bladder disease Bronchiectasis Cardiology follow-up encounter COPD (chronic obstructive pulmonary disease) Dementia Depression Dietary restriction DVT (deep venous thrombosis) Elevated d-dimer Elevated serum creatinine Gastric reflux High cholesterol History of echocardiogram History of edema History of hypotension History of pain when walking History of steroid therapy History of stress test Hx of diabetic neuropathy Hyperglycemia Hypoxia Injury of back Insulin dependent diabetes mellitus Leg cramps Leukocytosis Loss of consciousness Low iron Microcytic anemia Pneumonia Respiratory failure Restless legs Seizures Shortness of breath on exertion Smoker Stroke/cerebrovascular accident Syncope Uses wheelchair Wears dentures Wears glasses Home Medications aspirin 81 mg chewable tablet 81 mg PO DAILY@0800 heart health 03/09/13 [History Last Taken 04/21/23] gabapentin 100 mg capsule 200 mg PO TID neuropathy 03/09/13 [History Last Taken 04/21/23] clonazepam 0.5 mg tablet 0.5 mg PO BID 10/19/13 [History Last Taken 04/21/23] venlafaxine 75 mg tablet 75 mg PO BID depression 10/19/13 [History Last Taken 04/21/23] albuterol sulfate 90 mcg/actuation aerosol inhaler (Ventolin HFA) 1 puff inhalation Q4H PRN Wheezing 01/03/14 [History Last Taken 05/14/14] cholecalciferol (vitamin D3) 25 mcg (1,000 unit) tablet (Vitamin D3) 25 mcg PO DAILY supplement 01/06/17 [History Last Taken 04/21/23] rosuvastatin 20 mg tablet (Crestor) 20 mg PO QHS cholesterol 01/06/17 [History Last Taken 04/20/23] insulin glargine 100 unit/mL (3 mL) subcutaneous pen (Lantus Solostar U-100 Insulin) 16 unit subcut QHS 10/22/20 [History Last Taken 04/20/23] insulin glargine 100 unit/mL (3 mL) subcutaneous pen (Lantus Solostar U-100 Insulin) 36 unit subcut DAILY 10/22/20 [History Last Taken 04/20/23] insulin lispro 200 unit/mL (3 mL) subcutaneous pen (Humalog KwikPen U-200 Insulin) See Protocol subcut TID sliding scale 10/22/20 [History Last Taken 04/20/23] levetiracetam 500 mg tablet 500 mg PO BID 10/22/20 [History Last Taken 04/21/23] magnesium oxide 400 mg PO DAILY 10/22/20 [History Last Taken 04/21/23] fluticasone propionate 50 mcg/actuation nasal spray,suspension 2 spray intranasal DAILY 12/05/22 [History Last Taken 04/21/23] guaifenesin 1,200 mg tablet, extended release 12 hr (Mucus Relief ER) 1,200 mg PO BID 12/05/22 [History Last Taken 04/11/23] vibegron 75 mg tablet (Gemtesa) 75 mg PO DAILY 12/05/22 [History Last Taken 04/21/23] acetaminophen 500 mg tablet 1,000 mg PO Q8H PRN Pain 04/21/23 [History Last Taken 04/20/23] albuterol sulfate 2.5 mg/3 mL (0.083 %) solution for nebulization 2.5 mg inhalation Q6H PRN shortness of breath or wheezing 04/21/23 [History Last Taken Unknown] alendronate 70 mg tablet 70 mg PO FR 04/21/23 [History Last Taken 04/16/23] calcium carbonate 500 mg-vitamin D3 5 mcg (200 unit) tablet (Oyster Shell Calcium-Vitamin D3) 1 tab PO BIDCM 04/21/23 [History Last Taken 04/21/23] dicyclomine 20 mg tablet 20 mg PO TID 04/21/23 [History Last Taken 04/21/23] dulaglutide 0.75 mg/0.5 mL subcutaneous pen injector (Trulicity) 0.75 mg subcut MO 04/21/23 [History Last Taken 04/19/23] fluticasone furoate 100 mcg-vilanterol 25 mcg/dose inhalation powder (Breo Ellipta) 1 ea inhalation DAILY 04/21/23 [History Last Taken 04/20/23] memantine 10 mg tablet 10 mg PO BID 04/21/23 [History Last Taken Unknown] metformin 1,000 mg tablet 1,000 mg PO BID 04/21/23 [History Last Taken 04/21/23] omeprazole 40 mg capsule,delayed release 40 mg PO DAILY 04/21/23 [History Last Taken 04/21/23] peg 400-propylene glycol 0.4 %-0.3 % eye gel drops (Systane Gel) 1 drp ophthalmic (eye) 4X/DAY 04/21/23 [History Last Taken 04/21/23] ferrous sulfate 325 mg (65 mg iron) tablet 325 mg PO DAILY #30 tabs 04/26/23 [Rx Last Taken Unknown] furosemide 40 mg tablet 40 mg PO DAILY #30 tabs 04/26/23 [Rx Last Taken Unknown] levofloxacin 500 mg tablet 500 mg PO DAILY@0600 #2 tabs 04/26/23 [Rx Last Taken Unknown] potassium chloride 20 mEq tablet,extended release(part/cryst) 20 meq PO BIDCM #60 tabs 04/26/23 [Rx Last Taken Unknown] prednisone 20 mg tablet 20 mg PO BREAKFAST #4 tabs 04/26/23 [Rx Last Taken Unknown] Allergy/AdvReac Type Severity Reaction Status Date / Time atorvastatin calcium Allergy Unknown Verified 05/04/23 12:54 [From Lipitor] ibuprofen [From Motrin] Allergy Unknown Verified 05/04/23 12:54 Family History Mother Heart disease Hypertension Myocardial infarction Diabetes Father Heart disease Hypertension Myocardial infarction Surgical History History of angioplasty of peripheral vessel History of esophagogastroduodenoscopy (EGD) Hx laparoscopic cholecystectomy Hx of breast biopsy Hx of cataract extraction Hx of colonoscopy Social History household members: none housing: assisted living facility Smoking Status: Light Smoker (<10/day) alcohol intake: never substance use type: does not use ROS ROS ED Constitutional Constitutional ED: Denies chills, fever(s) or weight loss Eyes Eyes: Denies change in vision or diplopia ENT ENT ED: Denies ear pain, rhinorrhea or sore throat Cardiovascular Cardiovascular: Denies chest pain, orthopnea, palpitations or racing heartbeat Respiratory/Chest Respiratory/Chest: Reports cough; Denies dyspnea or orthopnea Gastrointestinal Gastrointestinal: Denies abdominal pain, diarrhea, nausea or vomiting Genitourinary Genitourinary ED: Denies dysuria, hematuria or urinary frequency Musculoskeletal Musculoskeletal: Denies arthralgias or myalgias Integumentary Denies abscess or rash Neurologic Neurologic: Denies headache(s) or weakness Psychiatric Psychiatric: Denies anxiety, depression, suicidal ideation or suicidal thoughts Endocrine Endocrinology: Denies polydipsia, polyphagia or polyuria Allergic/Immunologic Allergic/Immunologic ED: Denies mouth swelling, tongue swelling or urticaria EXAM Physical Exam Narrative Exam Narrative: Patient will awaken and speak and then go back to being unconscious. However her vital signs appear quite stable. Const Vital Signs: 05/04/23 12:46 05/04/23 13:45 05/04/23 14:26 Temperature 97.3 F L 98.1 F 98.1 F Temperature Source Temporal Temporal Oral Pulse Rate 87 90 87 Respiratory Rate 18 23 H 20 H Blood Pressure 101/68 112/50 L 99/51 L Blood Pressure Mean 79 70 67 Pulse Ox 93 98 98 Oxygen Delivery Method Room Air Room Air Room Air 05/04/23 17:22 05/04/23 13:09 05/04/23 13:15 Temperature 98.1 F Temperature Source Pulse Rate 98 92 Respiratory Rate 20 H 21 H Blood Pressure 128/65 H 113/51 L Blood Pressure Mean 86 69 Pulse Ox 94 90 Oxygen Delivery Method 05/04/23 13:15 05/04/23 13:30 05/04/23 13:45 Temperature Temperature Source Pulse Rate 92 93 91 Respiratory Rate 16 20 H 22 H Blood Pressure 113/51 L 97/52 L 102/59 L Blood Pressure Mean 69 67 73 Pulse Ox 90 85 Oxygen Delivery Method 05/04/23 14:00 05/04/23 14:15 05/04/23 14:45 Temperature Temperature Source Pulse Rate 91 90 90 Respiratory Rate 22 H 20 H 21 H Blood Pressure 112/50 L 99/51 L 99/52 L Blood Pressure Mean 69 65 68 Pulse Ox 92 Oxygen Delivery Method 05/04/23 15:00 05/04/23 16:00 05/04/23 16:00 Temperature Temperature Source Pulse Rate 88 93 94 Respiratory Rate 20 H 23 H 18 Blood Pressure 111/55 L 133/69 H 133/69 H Blood Pressure Mean 71 90 88 Pulse Ox 93 90 89 Oxygen Delivery Method Nasal Cannula 05/04/23 16:30 05/04/23 17:00 Temperature Temperature Source Pulse Rate 95 96 Respiratory Rate 25 H 25 H Blood Pressure 136/61 H 126/58 H Blood Pressure Mean 79 80 Pulse Ox 95 96 Oxygen Delivery Method Positive well nourished, well developed and obese General Appearance ED: well developed Nutritional Appearance: obese HEENT Reports normocephalic, head/scalp atraumatic and moist mucous membranes Eyes PERRL and EOMs intact bilaterally Neck no lymphadenopathy, supple and no JVD Resp normal respiratory effort and clear to auscultation bilaterally Cardio regular rate, regular rhythm and no murmurs GI normal to inspection, nondistended, normoactive bowel sounds and non-tender Palpation: soft Back/Spine no CVA tenderness and normal ROM Extremity normal to inspection General Extremety ED: Negative for edema General Extremity: Negative for edema Neuro oriented x3 and CN's II-XII intact bilaterally Sensorium / Orientation: alert Motor Exam: strength 5/5 throughout Psych mental status grossly normal Mood & Affect: Negative for depressed or tearful Skin no rashes or lesions noted and no wounds MDM MDM MDM Narrative Medical decision making narrative: Initially the patient would respond to sternal rub and would say a few words. Nursing administered intranasal Narcan and the patient is now awake and talking. Patient is amnestic to all events of the day and the last thing she remembers was yesterday evening. She has been able to ambulate in the department without any desaturation. Nursing spoke with the assisted living center and they are going to reevaluate her for potential to be moving to more the custodial/side. As far as her workup here today white count 14.3 which is improved from her discharge white count. Hemoglobin 9.6 platelet count of 281. No bandemia. INR PTT within normal limits. BMP showed a BUN of 21 and a creatinine of 1.25. Glucose 199. 2 sets of cardiac enzymes are normal. Toxicology workup is negative. Urinalysis does not show overt infection. Her EKG is a normal sinus rhythm with no definitive features of ACS. No significant QT prolongation or QRS widening. My independent interpretation of her chest x-ray is no acute process. CT the brain shows no acute process. Patient received a liter of IV fluids. This point I do not see an obvious cause for what happened to the patient today. Her toxicology workup was negative but it apparently she responded well to the Narcan. I do not see evidence of aspiration at this time. The patient prior hospitalization was reviewed. She was to be set up for home oxygen. At times her oxygenation has been normal and at times her oxygenation has been around 90%. This seems consistent with the patient's hospitalization recently. I doubt a clinically significant pulmonary embolism given the lack of symptomology consistent with that. The lactic acid initially elevated 2.3. Upon arrival the patient did not had any evidence of shock. EMS did not see hypotension. She is on metformin. Second lactic acid is normal. I went back spoke with the patient and the family with the above workup. Patient has a doctors order to move her to rehab/custodial facility instead of assisted living however this will not happen until tomorrow. Family is concerned about the patient's wellbeing tonight as the staff will only check on her once or twice. History & Record Review Discussion w/independent historian: Patient and Family Additional record(s) reviewed:: Prior inpatient record, Prior ED visit and Prior labs Lab Data Attestation: I reviewed the patient's lab results. Labs: Laboratory Results - last 24 hr 05/04/23 05/04/23 05/04/23 13:04 13:43 16:20 WBC 14.3 H RBC 3.96 L Hgb 9.6 L Hct 32.4 L MCV 81.8 MCH 24.2 L MCHC 29.6 L RDW Std Deviation 54.5 H RDW Coeff of Fadumo 21.4 H Plt Count 281 MPV 10.8 Immature Gran % (Auto) 0.600 Neut % (Auto) 71.7 H Lymph % (Auto) 21.0 [place] % (Auto) 5.5 Eos % (Auto) 0.9 Baso % (Auto) 0.3 Absolute Neuts (auto) 10.3 H Absolute Lymphs (auto) 3.00 Nucleated RBC % 0 Differential Comment SCANNED Anisocytosis 2+ Microcytosis 1+ Macrocytosis 1+ PT 13.6 INR 1.0 APTT 30.6 Sodium 137 Potassium 4.2 Chloride 102 Carbon Dioxide 28.0 Anion Gap 7 BUN 21 H Creatinine 1.25 H Estim Creat Clear Calc 40.67 Est GFR (MDRD) Af Amer 54 L Est GFR (MDRD) Non-Af 44 L BUN/Creatinine Ratio 16.8 Glucose 199 H Lactic Acid 2.3 H* 1.5 Calcium 8.4 L Total Bilirubin 0.30 Direct Bilirubin 0.13 AST 28 ALT 37 Alkaline Phosphatase 154 H Troponin I High Sens 11 13 Total Protein 6.7 Albumin 2.4 L Globulin 4.3 H Urine Color Yellow Urine Clarity Sl. Cloudy Urine pH 7.0 Ur Specific Gay 1.005 Urine Protein 30 H Urine Glucose (UA) Normal Urine Ketones Negative Urine Occult Blood Negative Urine Nitrite Negative Urine Bilirubin Negative Urine Urobilinogen Normal Ur Leukocyte Esterase Negative Urine RBC 0 SEEN Urine WBC 0 SEEN Ur Squamous Epith Cells 0 SEEN Urine Bacteria 0 SEEN Urine Mucus 0 SEEN Urine Opiates Screen NEGATIVE Urine Methadone Screen NEGATIVE Ur Barbiturates Screen NEGATIVE Ur Phencyclidine Scrn NEGATIVE Ur Amphetamines Screen NEGATIVE MDMA (Ecstasy) Screen NEGATIVE U Benzodiazepines Scrn NEGATIVE Urine Cocaine Screen NEGATIVE U Cannabinoids Screen NEGATIVE Ur Drug Screen Comment Ethyl Alcohol < 3.0 Radiography Diagnostic Testing: Clinical Impression(s) from Imaging Studies Brain CT 05/04/23 12:55 IMPRESSION: Chronic involutional changes of the brain. Electronically Signed: Joaquín Kirby MD at 13:44 EDT , Chest X-Ray 05/04/23 13:20 IMPRESSION: Stable increased reticular nodular pattern in both lungs worse at the lung bases suggestive of chronic scarring. Electronically Signed: Joaquín Kirby MD at 13:46 EDT , EKG Initial EKG: Attestation: I personally reviewed and interpreted this EKG as follows: Comments: Normal sinus rhythm ventricular rate of 88 bpm Discharge Plan Dx/Rx/DC Orders Clinical Impression: Type 2 diabetes mellitus, Unresponsive episode Disposition Disposition: Acute Care Hospital [facility]
[2023-05-04 13:42] LABS: Prothrombin Time (Protime)PT. 13.6 SECONDS (11.7-14.9)
[2023-05-04 13:43] LABS: Lactic Acid 2.3 mmol/L (0.4-1.9); Partial Thromboplast Time 30.6 Seconds (24.1-36.2)
[2023-05-04 13:48] LABS: Bacteria 0 SEEN /hpf (None Seen); Mucous, Urine 0 SEEN /hpf (<or=2+); Red Blood Cells-Urine 0 SEEN /hpf (0-5); Squamous Epithelial Cells - UA 0 SEEN /hpf (5-10); White Blood Cells 0 SEEN /hpf (0-5)
[2023-05-04 14:09] LABS: Color, Urine Yellow (Yellow); Glucose, Dipstick Normal (Normal); Ketone-Dipstick Negative (Negative); Leukocyte Esterase-Dipstick Negative /ul (Negative); Nitrite-Dipstick Negative (Negative); Occult Blood-Urine Negative /ul (Negative); Protein-Dipstick 30 mg/dl (Negative); Specific Gravity, Urine 1.005 (1.002-1.030); Urine Bilirubin Dipstick Negative (Negative); Urine Clarity Sl. Cloudy (Clear); Urine Urobilinogen Normal (Normal)
[2023-05-04 14:14] LABS: Anisocytosis 2+; Differential Comment SCANNED; Macrocytosis 1+; Microcytosis 1+
[2023-05-04 14:34] LABS: Amphetamine Urine VISTA NEGATIVE (<1000 ng/mL); Barbiturate Urine VISTA NEGATIVE (< 200 ng/mL); Benzodiazepine Urine VISTA NEGATIVE (< 200 ng/mL); Cocaine Urine VISTA NEGATIVE (< 300 ng/mL); Ecstacy Urine VISTA NEGATIVE (< 500 ng/mL); Methadone Urine VISTA NEGATIVE (< 300 ng/mL); PCP Urine VISTA NEGATIVE (< 25 ng/mL); THC Urine VISTA NEGATIVE (< 50 ng/mL); Vista UDS pH Range 7
--- NOTE | 2023-05-04 15:42 | NURSING ---
Nurse walked patient 25 ft. Oxygen fluctuated between 91 and 92% on room air.
--- NOTE | 2023-05-04 15:50 | ED.RN ---
Called [facility] and they stated that she is okay to be sent back their facility.
[2023-05-04] MEDS: 0.9% Normal Saline (1000mL) 1,000 ML 999 ML IV (16:12)
[2023-05-04 17:01] LABS: Troponin-I HS 13 pg/mL (3.0-54.0)
[2023-05-04 17:08] LABS: Reflex Lactate? Y
[2023-05-04 17:16] LABS: Lactic Acid 1.5 mmol/L (0.4-1.9)
--- NOTE | 2023-05-04 18:09 | PCM.HP.STD ---
[facility] - General General Date of Service: 05/04/23 Chief Complaint: Unresponsiveness HPI Narrative PETE SCHUMACHER, is a 78 F who presents unresponsive. Patient was found unresponsive at her assisted living. Brought to the emergency room and received a dose of Narcan. Patient did come to was completely alert. Patient denies any opiates. Drug screen is negative. Workup was unremarkable. Patient was straight cathed and was noted to have copious vaginal discharge. Patient denies any dysuria or notes any concern about discharge. Patient states that she does periodically get yeast infections when she is on antibiotics. Patient was just discharged on the with a pneumonia. Patient has similar history in the past where she was having issues with hypoglycemia had to be intubated being transferred but then came to safely extubated. Patient saw a neurologist over in [place], Dr. Clemons, was concerned that her episode may have been due to hypoglycemia, however, patient is on levetiracetam. [facility] Medical History Acidosis, lactic Acute dyspnea Anxiety Arthritis Aspiration pneumonia Back pain Bladder disease Bronchiectasis Cardiology follow-up encounter COPD (chronic obstructive pulmonary disease) Dementia Depression Dietary restriction DVT (deep venous thrombosis) Elevated d-dimer Elevated serum creatinine Gastric reflux High cholesterol History of echocardiogram History of edema History of hypotension History of pain when walking History of steroid therapy History of stress test Hx of diabetic neuropathy Hyperglycemia Hypoxia Injury of back Insulin dependent diabetes mellitus Leg cramps Leukocytosis Loss of consciousness Low iron Microcytic anemia Pneumonia Respiratory failure Restless legs Seizures Shortness of breath on exertion Smoker Stroke/cerebrovascular accident Syncope Uses wheelchair Wears dentures Wears glasses Home Medications aspirin 81 mg chewable tablet 81 mg PO DAILY@0800 heart health 03/09/13 [History Last Taken 05/04/23] gabapentin 100 mg capsule 200 mg PO TID NEUROPATHY 03/09/13 [History Last Taken 05/04/23] clonazepam 0.5 mg tablet 0.5 mg PO BID ANXIETY 10/19/13 [History Last Taken 05/04/23] venlafaxine 75 mg tablet 75 mg PO BID DEPRESSION 10/19/13 [History Last Taken 05/04/23] albuterol sulfate 90 mcg/actuation aerosol inhaler (Ventolin HFA) 2 puff inhalation Q6H PRN WHEEZING/SHORTNESS OF BREATH 01/03/14 [History Last Taken 04/21/23] cholecalciferol (vitamin D3) 25 mcg (1,000 unit) tablet (Vitamin D3) 25 mcg PO DAILY SUPPLEMENT 01/06/17 [History Last Taken 05/02/23] rosuvastatin 20 mg tablet (Crestor) 20 mg PO QHS CHOLESTEROL 01/06/17 [History Last Taken 05/03/23] insulin glargine 100 unit/mL (3 mL) subcutaneous pen (Lantus Solostar U-100 Insulin) 16 unit subcut QHS DIABETES 10/22/20 [History Last Taken 05/03/23] insulin glargine 100 unit/mL (3 mL) subcutaneous pen (Lantus Solostar U-100 Insulin) 36 unit subcut DAILY DIABETES 10/22/20 [History Last Taken 05/04/23] insulin lispro 200 unit/mL (3 mL) subcutaneous pen (Humalog KwikPen U-200 Insulin) See Protocol subcut TID sliding scale 10/22/20 [History Last Taken 05/04/23] levetiracetam 500 mg tablet 500 mg PO BID SEIZURES 10/22/20 [History Last Taken 05/04/23] magnesium oxide 400 mg PO DAILY SUPPLEMENT 10/22/20 [History Last Taken 05/04/23] fluticasone propionate 50 mcg/actuation nasal spray,suspension 2 spray intranasal DAILY nasal congestion 12/05/22 [History Last Taken 05/04/23] vibegron 75 mg tablet (Gemtesa) 75 mg PO DAILY OVERACTIVE BLADDER 12/05/22 [History Last Taken 05/04/23] albuterol sulfate 2.5 mg/3 mL (0.083 %) solution for nebulization 2.5 mg inhalation Q6H PRN WHEEZING/SHORTNESS OF BREATH 04/21/23 [History Last Taken Unknown] alendronate 70 mg tablet 70 mg PO BONE HEALTH 04/21/23 [History Last Taken 04/30/23] calcium carbonate 500 mg-vitamin D3 5 mcg (200 unit) tablet (Oyster Shell Calcium-Vitamin D3) 1 tab PO BIDCM SUPPLEMENT 04/21/23 [History Last Taken 05/04/23] dicyclomine 20 mg tablet 20 mg PO TID abdominal pain 04/21/23 [History Last Taken 05/04/23] dulaglutide 0.75 mg/0.5 mL subcutaneous pen injector (Trulicity) 0.75 mg subcut MO DIABETES 04/21/23 [History Last Taken 05/03/23] fluticasone furoate 100 mcg-vilanterol 25 mcg/dose inhalation powder (Breo Ellipta) 1 ea inhalation DAILY SHORTNESS OF BREATH 04/21/23 [History Last Taken 05/02/23] memantine 10 mg tablet 10 mg PO BID MEMORY 04/21/23 [History Last Taken 05/04/23] omeprazole 40 mg capsule,delayed release 40 mg PO DAILY GERD 04/21/23 [History Last Taken 05/04/23] peg 400-propylene glycol 0.4 %-0.3 % eye gel drops (Systane Gel) 1 drp ophthalmic (eye) 4X/DAY DRY EYE RELIEF 04/21/23 [History Last Taken 05/04/23] ferrous sulfate 325 mg (65 mg iron) tablet 325 mg PO DAILY ANEMIA #30 tabs 04/26/23 [Rx Last Taken 05/02/23] furosemide 40 mg tablet 40 mg PO DAILY EDEMA #30 tabs 04/26/23 [Rx Last Taken 05/04/23] potassium chloride 20 mEq tablet,extended release(part/cryst) 20 meq PO BIDCM SUPPLEMENT #60 tabs 04/26/23 [Rx Last Taken 05/04/23] acetaminophen 325 mg tablet 650 mg PO Q6H PRN PAIN/FEVER 05/04/23 [History Last Taken 05/04/23] glucagon 3 mg/actuation nasal spray (Baqsimi) 3 mg intranasal DAILY PRN LOW BLOOD SUGAR 05/04/23 [History Last Taken Unknown] guaifenesin 600 mg tablet, extended release 12 hr 600 mg PO BID CONGESTION 05/04/23 [History Last Taken 05/04/23] loperamide 2 mg capsule 2 mg PO TID PRN DIARRHEA 05/04/23 [History Last Taken Unknown] metformin 500 mg tablet 500 mg PO BID DIABETES 05/04/23 [History Last Taken 05/04/23] olanzapine 7.5 mg tablet 7.5 mg PO QHS MOOD 05/04/23 [History Last Taken 05/03/23] Allergy/AdvReac Type Severity Reaction Status Date / Time atorvastatin calcium Allergy Unknown Verified 05/04/23 12:54 [From Lipitor] ibuprofen [From Motrin] Allergy Unknown Verified 05/04/23 12:54 Family History Mother Heart disease Hypertension Myocardial infarction Diabetes Father Heart disease Hypertension Myocardial infarction Surgical History History of angioplasty of peripheral vessel History of esophagogastroduodenoscopy (EGD) Hx laparoscopic cholecystectomy Hx of breast biopsy Hx of cataract extraction Hx of colonoscopy Social History household members: none housing: assisted living facility Smoking Status: Light Smoker (<10/day) alcohol intake: never substance use type: does not use ROS ROS Narrative All review of systems were negative except as mentioned above in the history of present illness and the other review of systems. Vital Signs Vital Signs Vital Signs: 05/04/23 12:46 05/04/23 13:45 05/04/23 14:26 Temperature 36.3 C L 36.7 C 36.7 C Temperature Source Temporal Temporal Oral Pulse Rate 87 90 87 Respiratory Rate 18 23 H 20 H Blood Pressure 101/68 112/50 L 99/51 L Blood Pressure Mean 79 70 67 Pulse Ox 93 98 98 Oxygen Delivery Method Room Air Room Air Room Air 05/04/23 17:22 05/04/23 13:09 05/04/23 13:15 Temperature 36.7 C Temperature Source Pulse Rate 98 92 Respiratory Rate 20 H 21 H Blood Pressure 128/65 H 113/51 L Blood Pressure Mean 86 69 Pulse Ox 94 90 Oxygen Delivery Method 05/04/23 13:15 05/04/23 13:30 05/04/23 13:45 Temperature Temperature Source Pulse Rate 92 93 91 Respiratory Rate 16 20 H 22 H Blood Pressure 113/51 L 97/52 L 102/59 L Blood Pressure Mean 69 67 73 Pulse Ox 90 85 Oxygen Delivery Method 05/04/23 14:00 05/04/23 14:15 05/04/23 14:45 Temperature Temperature Source Pulse Rate 91 90 90 Respiratory Rate 22 H 20 H 21 H Blood Pressure 112/50 L 99/51 L 99/52 L Blood Pressure Mean 69 65 68 Pulse Ox 92 Oxygen Delivery Method 05/04/23 15:00 05/04/23 16:00 05/04/23 16:00 Temperature Temperature Source Pulse Rate 88 93 94 Respiratory Rate 20 H 23 H 18 Blood Pressure 111/55 L 133/69 H 133/69 H Blood Pressure Mean 71 90 88 Pulse Ox 93 90 89 Oxygen Delivery Method Nasal Cannula 05/04/23 16:30 05/04/23 17:00 05/04/23 17:00 Temperature Temperature Source Pulse Rate 95 96 96 Respiratory Rate 25 H 25 H 25 H Blood Pressure 136/61 H 126/58 H 132/65 H Blood Pressure Mean 79 80 81 Pulse Ox 95 96 96 Oxygen Delivery Method 05/04/23 17:15 05/04/23 17:30 05/04/23 17:45 Temperature Temperature Source Pulse Rate 98 97 99 Respiratory Rate 27 H 20 H 24 H Blood Pressure 128/65 H 135/65 H 151/72 H Blood Pressure Mean 84 86 95 Pulse Ox 96 96 94 Oxygen Delivery Method 05/04/23 18:00 Temperature Temperature Source Pulse Rate 97 Respiratory Rate 20 H Blood Pressure 150/64 H Blood Pressure Mean 90 Pulse Ox 94 Oxygen Delivery Method Weight Weight: 89.6 kg Body Mass Index (BMI) 34.9 Physical Exam Narrative .- Physical Exam General: Alert, Oriented x3, Cooperative HEENT: Atraumatic, PERRLA, EOMI, Normocephalic Oral: Dry Mucosa, No Gingival or Mucosal Lesions/ Ulcerations Neck: Supple, No JVD, Negative Carotid Bruits Lungs: Clear to auscultation, Normal air movement Cardiovascular: Regular rate, Normal S1, Normal S2, No murmurs Abdomen: Bowel Sounds Present, Soft, Non Tender, Non-Distended, No Hepato-splenomegaly Extremities: No clubbing, No cyanosis, No edema, Capillary Refill Less than 3 Seconds Skin: No rashes, No breakdown Musculoskeletal: No Tenderness to Palpation of Joints or Extremities Neurological: Neuro grossly intact Psych/Mental Status: Normal Affect, Appropriate Results Lab / Micro Data Attestation: I reviewed the patient's lab results. 05/04/23 13:04 05/04/23 13:04 Labs: Laboratory Results - last 24 hr 05/04/23 13:04: WBC 14.3 H, RBC 3.96 L, Hgb 9.6 L, Hct 32.4 L, MCV 81.8, MCH 24.2 L, MCHC 29.6 L, RDW Std Deviation 54.5 H, RDW Coeff of Fadumo 21.4 H, Plt Count 281, MPV 10.8, Immature Gran % (Auto) 0.600, Neut % (Auto) 71.7 H, Lymph % (Auto) 21.0, [place] % (Auto) 5.5, Eos % (Auto) 0.9, Baso % (Auto) 0.3, Absolute Neuts (auto) 10.3 H, Absolute Lymphs (auto) 3.00, Nucleated RBC % 0, Differential Comment SCANNED, Anisocytosis 2+, Microcytosis 1+, Macrocytosis 1+, PT 13.6, INR 1.0, APTT 30.6, Sodium 137, Potassium 4.2, Chloride 102, Carbon Dioxide 28.0, Anion Gap 7, BUN 21 H, Creatinine 1.25 H, Estim Creat Clear Calc 40.67, Est GFR (MDRD) Af Amer 54 L, Est GFR (MDRD) Non-Af 44 L, BUN/Creatinine Ratio 16.8, Glucose 199 H, Lactic Acid 2.3 H*, Calcium 8.4 L, Total Bilirubin 0.30, Direct Bilirubin 0.13, AST 28, ALT 37, Alkaline Phosphatase 154 H, Troponin I High Sens 11, Total Protein 6.7, Albumin 2.4 L, Globulin 4.3 H, Ethyl Alcohol < 3.0 05/04/23 13:43: Urine Color Yellow, Urine Clarity Sl. Cloudy, Urine pH 7.0, Ur Specific [place] 1.005, Urine Protein 30 H, Urine Glucose (UA) Normal, Urine Ketones Negative, Urine Occult Blood Negative, Urine Nitrite Negative, Urine Bilirubin Negative, Urine Urobilinogen Normal, Ur Leukocyte Esterase Negative, Urine RBC 0 SEEN, Urine WBC 0 SEEN, Ur Squamous Epith Cells 0 SEEN, Urine Bacteria 0 SEEN, Urine Mucus 0 SEEN, Urine Opiates Screen NEGATIVE, Urine Methadone Screen NEGATIVE, Ur Barbiturates Screen NEGATIVE, Ur Phencyclidine Scrn NEGATIVE, Ur Amphetamines Screen NEGATIVE, MDMA (Ecstasy) Screen NEGATIVE, U Benzodiazepines Scrn NEGATIVE, Urine Cocaine Screen NEGATIVE, U Cannabinoids Screen NEGATIVE, Ur Drug Screen Comment 05/04/23 16:20: Lactic Acid 1.5, Troponin I High Sens 13 EKG Initial EKG: Attestation: I personally reviewed and interpreted this EKG as follows: Prior EKG tracings: available for review EKG Rhythm Intrepretation: Sinus Rhythm Imaging Radiology Impression Brain CT 05/04/23 12:55 IMPRESSION: Chronic involutional changes of the brain. Electronically Signed: Joaquín Kirby MD at 13:44 EDT , Chest X-Ray 05/04/23 13:20 IMPRESSION: Stable increased reticular nodular pattern in both lungs worse at the lung bases suggestive of chronic scarring. Electronically Signed: Joaquín Kirby MD at 13:46 EDT , Assessment & Plan Assessment/Plan (1) Unresponsive episode: PLAN: Plan Unresponsiveness Resolved Etiology is unclear. Could be breakthrough seizure versus vasovagal syncope versus iatrogenic. Patient did receive a dose of Narcan but her OARRS report was reviewed and showed no evidence of narcotics but does take Klonopin and gabapentin. As she resides in assisted living the patient administered her medications by staff so the likelihood of overdose would be low. Glucose was 199 so not due to hypoglycemia. Plan is to monitor here. Not planning on doing additional neurologic workup at this time but patient does have a recurrent event I would recommend additional workup and neurology consultation. Patient does look dry though her specific gravity was abnormal on her urinalysis. Will give her IV fluids. Vulvovaginal candidiasis I do not think that this is the culprit of her episode but we will give her one-time dose of fluconazole 150 Patient had completed antibiotics for. Dehydration IV fluids Hold her furosemide without her potassium for now. Chronic conditions Seizure disorder: According to family this was refuted by the neurologist, Dr. Clemons, in [place]. He was concerned that may have been due to hypoglycemia. Patient did have an EEG in 2019 that was abnormal but optic activity noted continue with levetiracetam. Follow-up with Dr. Clemons as outpatient. Diabetes mellitus type 2: Basal insulin. Sign scale insulin. Hold metformin for now. VTE prophylaxis: Low risk indicated at this time given observation status. CODE STATUS: Addressed with the patient. Patient wishes to be DNR Comfort Care arrest no intubation. Patient she can she does so. Disposition: Facility was uncomfortable with patient returning to assisted senior living facility which may change starting . But in the meantime, patient could return to assist. Family was concerned so patient being brought to the hospital for monitoring potential transfer to go to a senior living facility side . Will have physical, occupational therapy see her. Case management to assist. Charges/Coding Visit Charges Inpatient E&M: 80490 Init Hosp L3
[2023-05-04] MEDS: 0.9% Normal Saline (1000mL) 1,000 ML 150 ML IV (20:04)
[2023-05-04] MEDS: Glycerin/Hypromellose/PEG400 15 ml Bottle 1 DRP EACH EYE (20:32)
[2023-05-04] MEDS: Dicyclomine 10 MG Capsule 20 MG PO (20:32)
[2023-05-04] MEDS: FLUCONAZOLE 150 MG TABLET PO (20:32)
[2023-05-04] MEDS: Venlafaxine HCl 75 MG Tablet PO (20:33)
[2023-05-04] MEDS: Insulin Glargine-YFGN 100 UNIT/ML Pen 16 UNIT SC (20:33)
[2023-05-04] MEDS: Rosuvastatin 20 MG Tablet PO (20:33)
[2023-05-04] MEDS: Gabapentin 100 MG Capsule 200 MG PO (20:34)
[2023-05-04] MEDS: levETIRAcetam 500 MG Tablet PO (20:34)
[2023-05-04] MEDS: Memantine Hydrochloride 10 MG Tablet PO (20:34)
[2023-05-04] MEDS: guaiFENesin 600 MG Tablet PO (20:34)
[2023-05-04] MEDS: OLANZapine 2.5 MG Tablet 7.5 MG PO (20:34)
[2023-05-04] MEDS: clonazePAM 0.5 MG Tablet PO (20:34)
[2023-05-04 21:10] LABS: Bedside Glucose 191 mg/dL (74-106)
[2023-05-05] VITALS (9 sets, daily range): BP systolic 107–128; BP diastolic 57–74; PULSE 82–102; RESP 16–20; TEMP 36.7–37.1; O2SAT 92–96
[2023-05-05] MEDS: Gabapentin 100 MG Capsule 200 MG PO ×3 (06:27→21:03)
[2023-05-05] MEDS: Dicyclomine 10 MG Capsule 20 MG PO ×3 (06:27→21:05)
[2023-05-05 06:46] LABS: Bedside Glucose 112 mg/dL (74-106)
[2023-05-05] MEDS: Albuterol 2.5 MG/3 ML VIAL.NEB. INHALATION ×2 (07:03→19:11)
[2023-05-05] MEDS: Budesonide Respules 0.5 MG/2 ML AMPUL.NEB. INHALATION ×2 (07:03→19:11)
[2023-05-05 07:32] LABS: Absolute Lymphocyte Count 2.14 X10^3/uL (0.83-4.51); Absolute Neutrophil Count 8.5 X10^3/uL (2.0-7.7); Basophil# 0.04 X10^3/uL; Basophil% 0.3 % (0-1); Eosinophil# 0.11 X10^3/uL; Hematocrit 31.3 % (37-47); Hemoglobin 9.2 g/dL (12.0-15.0); Lymphocyte # 2.14 X10^3/ul (0.83-4.51); Lymphocyte % 18.7 % (19-41); Mean Corp Hgb Conc 29.4 g/dL (32-36); Mean Corpuscular Hgb 24.5 pg (27.0-32.0); Mean Corpuscular Volume 83.2 fL (81-99); Mean Platelet Vol. 11.3 fl (6.2-12.0); Monocyte# 0.62 X10^3/uL; Monocyte% 5.4 % (0-10); NRBC Flagged by Analyzer 0 % (0-5); Neutrophil % 74.1 % (47-70); POSITIVE MORPHOLOGY YES; Platelet Count 293 K/mm3 (150-450); RBC Distribution Width CV 21.7 % (11.6-14.6); RBC Distribution Width SD 58.5 fl (35.1-43.9); Red Blood Count 3.76 M/mm3 (4.2-5.4); White Blood Count 11.5 K/mm3 (4.4-11.0)
[2023-05-05 07:34] LABS: Differential Indicated SCAN CRITERIA MET
[2023-05-05 07:54] LABS: Anion Gap 6 (5-15); BUN 13 mg/dL (7-18); BUN/Creat Ratio 15.4 RATIO (10-20); Calcium,Total 7.8 mg/dL (8.5-10.1); Chloride 108 mmol/L (98-107); Creatinine, Serum 0.84 mg/dL (0.55-1.02); EST Glomerular Filtration Rate 70 mL/min (>60); Est Glom Filt Rate - Afr Amer 84 mL/min (>60); Estimated Creatinine Clearance 59.31 ml/min; Glucose 111 mg/dL (74-106); Potassium 3.5 mmol/L (3.5-5.1); Sodium Level 141 mmol/L (136-145)
[2023-05-05 08:04] LABS: Microcytosis 1+
--- NOTE | 2023-05-05 09:35 | CASEMGMT ---
RAFAT HIGGINBOTHAM NOTE: RN CM to room. Intro role of CM to pt and family and [facility] form explained re: Observation status for treatment of unresponsiveness.? Explained hospitalization will be paid per?her insurance policy for Outpatient billing?and condition will continue to be evaluated for Inpt necessity. Also let pt and family know that [facility] sends paper in the billing packet with their phone number if questions arise. Son verbalizes understanding and does not have further questions. ?Form signed, copy made and placed in chart, and original given to son. Emilia ESQUEDA RN CM
--- NOTE | 2023-05-05 09:50 | PCM.PN.HOSP ---
Subjective Subjective Doing well, no issues overnight Objective Data Objective Data Vital Signs: Vital Signs Temp Pulse Resp BP Pulse Ox O2 Del Method O2 Flow Rate 98.5 F 82 20 H 125/63 H 92 Nasal Cannula 3 05/05/23 04:03 05/05/23 07:05 05/05/23 07:05 05/05/23 04:03 05/05/23 07:59 05/05/23 07:59 05/05/23 07:59 Oxygen Flow Rate (L/min) 3 Oxygen Delivery Method Nasal Cannula Weight: 190 lb 2 oz Body Mass Index (BMI) 33.7 Intake & Output: Intake and Output for Last 24 Hours 05/04/23 05/05/23 05/06/23 03:59 03:59 03:59 Intake Total 1050 / 1050 1050 / 1050 Balance 1050 / 1050 1050 / 1050 Lab / Micro Data 05/05/23 06:44 05/05/23 06:44 Labs: Laboratory Results - last 24 hr 05/04/23 13:04: WBC 14.3 H, RBC 3.96 L, Hgb 9.6 L, Hct 32.4 L, MCV 81.8, MCH 24.2 L, MCHC 29.6 L, RDW Std Deviation 54.5 H, RDW Coeff of Fadumo 21.4 H, Plt Count 281, MPV 10.8, Immature Gran % (Auto) 0.600, Neut % (Auto) 71.7 H, Lymph % (Auto) 21.0, [place] % (Auto) 5.5, Eos % (Auto) 0.9, Baso % (Auto) 0.3, Absolute Neuts (auto) 10.3 H, Absolute Lymphs (auto) 3.00, Nucleated RBC % 0, Differential Comment SCANNED, Anisocytosis 2+, Microcytosis 1+, Macrocytosis 1+, PT 13.6, INR 1.0, APTT 30.6, Sodium 137, Potassium 4.2, Chloride 102, Carbon Dioxide 28.0, Anion Gap 7, BUN 21 H, Creatinine 1.25 H, Estim Creat Clear Calc 40.67, Est GFR (MDRD) Af Amer 54 L, Est GFR (MDRD) Non-Af 44 L, BUN/Creatinine Ratio 16.8, Glucose 199 H, Lactic Acid 2.3 H*, Calcium 8.4 L, Total Bilirubin 0.30, Direct Bilirubin 0.13, AST 28, ALT 37, Alkaline Phosphatase 154 H, Troponin I High Sens 11, Total Protein 6.7, Albumin 2.4 L, Globulin 4.3 H, Ethyl Alcohol < 3.0 05/04/23 13:43: Urine Color Yellow, Urine Clarity Sl. Cloudy, Urine pH 7.0, Ur Specific [place] 1.005, Urine Protein 30 H, Urine Glucose (UA) Normal, Urine Ketones Negative, Urine Occult Blood Negative, Urine Nitrite Negative, Urine Bilirubin Negative, Urine Urobilinogen Normal, Ur Leukocyte Esterase Negative, Urine RBC 0 SEEN, Urine WBC 0 SEEN, Ur Squamous Epith Cells 0 SEEN, Urine Bacteria 0 SEEN, Urine Mucus 0 SEEN, Urine Opiates Screen NEGATIVE, Urine Methadone Screen NEGATIVE, Ur Barbiturates Screen NEGATIVE, Ur Phencyclidine Scrn NEGATIVE, Ur Amphetamines Screen NEGATIVE, MDMA (Ecstasy) Screen NEGATIVE, U Benzodiazepines Scrn NEGATIVE, Urine Cocaine Screen NEGATIVE, U Cannabinoids Screen NEGATIVE, Ur Drug Screen Comment 05/04/23 16:20: Lactic Acid 1.5, Troponin I High Sens 13 05/04/23 20:30: POC Glucose 191 H 05/05/23 06:27: POC Glucose 112 H 05/05/23 06:44: WBC 11.5 H, RBC 3.76 L, Hgb 9.2 L, Hct 31.3 L, MCV 83.2, MCH 24.5 L, MCHC 29.4 L, RDW Std Deviation 58.5 H, RDW Coeff of Fadumo 21.7 H, Plt Count 293, MPV 11.3, Immature Gran % (Auto) 0.500, Neut % (Auto) 74.1 H, Lymph % (Auto) 18.7 L, [place] % (Auto) 5.4, Eos % (Auto) 1.0, Baso % (Auto) 0.3, Absolute Neuts (auto) 8.5 H, Absolute Lymphs (auto) 2.14, Nucleated RBC % 0, Microcytosis 1+, Sodium 141, Potassium 3.5, Chloride 108 H, Carbon Dioxide 27.0, Anion Gap 6, BUN 13, Creatinine 0.84, Estim Creat Clear Calc 59.31, Est GFR (MDRD) Af Amer 84, Est GFR (MDRD) Non-Af 70, BUN/Creatinine Ratio 15.4, Glucose 111 H, Calcium 7.8 L Radiography Diagnostic Testing: Radiology Impression Brain CT 05/04/23 12:55 IMPRESSION: Chronic involutional changes of the brain. Electronically Signed: Joaquín Kirby MD at 13:44 EDT , Chest X-Ray 05/04/23 13:20 IMPRESSION: Stable increased reticular nodular pattern in both lungs worse at the lung bases suggestive of chronic scarring. Electronically Signed: Joaquín Kirby MD at 13:46 EDT , Physical Exam Narrative General: Alert, Oriented x3, Cooperative, No apparent distress HEENT: Atraumatic, PERRLA, EOMI, Normocephalic Oral: Moist Mucosa Neck: Supple, No JVD Lungs: Diminished, Normal air movement, No rhonchi, No wheeze, No rales Cardiovascular: Regular rate, Regular Rhythm, Normal S1, Normal S2, No murmurs Abdomen: Soft, Non Tender, Non-Distended, No Hepato-splenomegaly Extremities: No edema, Capillary Refill Less than 3 Seconds Skin: No rashes, No breakdown Musculoskeletal: No Tenderness to Palpation of Joints or Extremities Neurological: No focal neurological deficits, Motor Exam 5/5 strength throughout, Sensory exam intact to light touch and pain Psych/Mental Status: Normal Affect, Appropriate Assessment & Plan Assessment/Plan (1) Unresponsive episode: PLAN: Plan 1. Unresponsiveness/dehydration ? Unclear as to where the unresponsiveness came from, she did improve with Narcan however there is no opiates in your urine drug screen ? She does take Klonopin and gabapentin but unlikely to overdose in the setting of an assisted living ? She has been monitored overnight without any repeat in her unresponsiveness ? Renal function has returned to baseline with IV fluids ? Blood sugars are stable 2. Vulvovaginal candidiasis ? She does not get this issue after antibiotics and she was recently completing a course of antibiotics for pneumonia ? She received a one-time dose of Diflucan 150 mg 3. DM2 ? Continue with her home insulin, will hold metformin ? Accu-Cheks ACHS ? Will monitor make adjustments as necessary 4. Seizure disorder ? It does not appear that she had a seizure at the half-way ? Continue with her home Keppra 5. Anxiety/depression ? Stable ? Continue with her home medications 6. Hyperlipidemia ? Stable ? Continue with Crestor 7. COPD ? Not in exacerbation ? Continue with her home inhalers 8. Osteoporosis ? Continue with her weekly alendronate DVT: Ambulation Charges/Coding Visit Charges Inpatient E&M: 05939 Subs Hosp L2
--- NOTE | 2023-05-05 10:14 | CASEMGMT ---
RN ANAHY NOTE: A list of SNF providers including quality and resource use data and consistent with the patient?s preferred geographic region, medical needs, and insurance network [facility] given to [facility]. Emilia HammerN RN CM
[2023-05-05] MEDS: Calcium Carb/Vitamin D 1 TABLET Tablet PO ×2 (10:27→18:40)
[2023-05-05] MEDS: Aspirin 81 MG TAB.CHEW PO (10:27)
[2023-05-05] MEDS: Ferrous Sulfate 325 MG Tablet PO (10:27)
[2023-05-05] MEDS: Fluticasone 0.05% 1 SPRAY NASAL.SRY 2 SPRAY NASAL (10:28)
[2023-05-05] MEDS: Glycerin/Hypromellose/PEG400 15 ml Bottle 1 DRP EACH EYE ×4 (10:28→21:05)
[2023-05-05] MEDS: Venlafaxine HCl 75 MG Tablet PO ×2 (10:28→21:07)
[2023-05-05] MEDS: Vibegron 75 MG TABLET PO (10:30)
[2023-05-05] MEDS: Insulin Glargine-YFGN 100 UNIT/ML Pen 16 UNIT SC ×2 (10:32→21:04)
[2023-05-05] MEDS: Insulin Glargine-YFGN 100 UNIT/ML Pen 36 UNIT SC (10:32)
[2023-05-05] MEDS: guaiFENesin 600 MG Tablet PO ×2 (10:33→21:04)
[2023-05-05] MEDS: levETIRAcetam 500 MG Tablet PO ×2 (10:33→21:06)
[2023-05-05] MEDS: Memantine Hydrochloride 10 MG Tablet PO ×2 (10:34→21:04)
[2023-05-05] MEDS: Pantoprazole Sodium 40 MG Tablet PO (10:34)
[2023-05-05] MEDS: Magnesium Chloride 64 MG Delay Rel.Tablet 128 MG PO (10:34)
[2023-05-05] MEDS: Cholecalciferol (VIT D3) 25 MCG TABLET (1,000 UNITS) PO (10:34)
[2023-05-05] MEDS: clonazePAM 0.5 MG Tablet PO ×2 (10:39→21:03)
--- NOTE | 2023-05-05 11:46 | CASEMGMT ---
Social Work SW met with pt and son Clifford and introduced self and role of SW. Pt known to this SW from previous visit. Pt is a current resident at [facility]. SW spoke with Minerva at [facility] who states pt cannot return to [facility] at this time and will need some custodial care and rehab prior to returning to [facility]. SW met with pt and son Clifford and introduced self and role of SW. Pt known to this SW from previous visit. Pt acknowledging that she is weaker than normal and that [facility] cannot provide the amount of care she needs. Pt is agreeable to go to SNF. A list of SNF providers including quality and resource use data and consistent with the patient?s preferred geographic region, medical needs, and insurance network [facility]. [facility] and son preferred facility is [facility]. Referral sent to [facility] at this time. Will await determination of acceptance. Precert will be needed prior to discharge. Plan: [facility], pending acceptance and precert YULISSA Ingarm
[2023-05-05] MEDS: Insulin Lispro 100 UNIT/ML INSULN.PEN SC ×2 (12:28→18:40)
[2023-05-05 13:06] LABS: Bedside Glucose 288 mg/dL (74-106)
--- NOTE | 2023-05-05 14:27 | CHAPLAIN ---
Type of Pastoral Visit _x__ Initial Visit ___ Follow-up Visit ___ On-call Visit ___ General Patient Visit ___ Spiritual Assessment ___ Family Conference ___ Bereavement ___ Rapid Response ___ Code Blue ___ Other (describe below) Pastoral Care Referral From ___ Patient _x__ Family ___ Nurse ___ Physician ___ Habilitation Training Specialist ___ Jewelry Department Supervisor ___ Other (describe below) Sacrament/Intervention ___ Active listening ___ Anointing ___ Islam ___ Bereavement ___ Communion ___ Francy exploration ___ ___ Life review ___ Prayer ___ Reconciliation ___ Sacrament of Sick _x__ Supportive presence ___ Wedding ___ Other (describe below) Pastoral Comments son and daughter in law are in the room as patient is sleeping; pt does not stir and family prefers that she is able to sleep now; offer of support to family and they decline needs or concerns; offer of future support to patient as she may desire is given
[2023-05-05 17:41] LABS: Bedside Glucose 199 mg/dL (74-106)
[2023-05-05] MEDS: Rosuvastatin 20 MG Tablet PO (21:06)
[2023-05-05] MEDS: OLANZapine 2.5 MG Tablet 7.5 MG PO (21:06)
[2023-05-05] MEDS: Nystatin Powder 15gm Bottle 1 APPLIC TOPICAL (21:14)
[2023-05-05] MEDS: Menthol/Lanolin/Calamine/Znox 113 GM Tube 1 APPLIC TOPICAL (21:14)
[2023-05-05 23:27] LABS: Bedside Glucose 197 mg/dL (74-106)
[2023-05-06] VITALS (9 sets, daily range): BP systolic 104–141; BP diastolic 49–69; PULSE 80–107; RESP 18–20; TEMP 36.8–37.2; O2SAT 91–95
[2023-05-06] MEDS: Budesonide Respules 0.5 MG/2 ML AMPUL.NEB. INHALATION ×2 (06:50→17:46)
[2023-05-06] MEDS: Albuterol 2.5 MG/3 ML VIAL.NEB. INHALATION ×3 (06:50→17:46)
[2023-05-06] MEDS: Dicyclomine 10 MG Capsule 20 MG PO ×3 (06:58→21:36)
[2023-05-06] MEDS: Gabapentin 100 MG Capsule 200 MG PO ×3 (06:58→21:37)
[2023-05-06 07:09] LABS: Bedside Glucose 79 mg/dL (74-106)
[2023-05-06 08:06] LABS: Absolute Lymphocyte Count 1.83 X10^3/uL (0.83-4.51); Basophil# 0.04 X10^3/uL; Basophil% 0.3 % (0-1); Eosinophil# 0.09 X10^3/uL; Eosinophils% 0.8 % (0-5); Hematocrit 30.7 % (37-47); Hemoglobin 9.1 g/dL (12.0-15.0); Lymphocyte # 1.83 X10^3/ul (0.83-4.51); Lymphocyte % 15.5 % (19-41); Mean Corp Hgb Conc 29.6 g/dL (32-36); Mean Corpuscular Hgb 24.3 pg (27.0-32.0); Mean Corpuscular Volume 81.9 fL (81-99); Mean Platelet Vol. 10.6 fl (6.2-12.0); Monocyte# 0.76 X10^3/uL; Monocyte% 6.4 % (0-10); NRBC Flagged by Analyzer 0 % (0-5); Neutrophil # 9.04 X10^3/uL (2.7-7.7); Neutrophil % 76.5 % (47-70); POSITIVE MORPHOLOGY YES; Platelet Count 285 K/mm3 (150-450); RBC Distribution Width CV 21.8 % (11.6-14.6); RBC Distribution Width SD 59.8 fl (35.1-43.9); Red Blood Count 3.75 M/mm3 (4.2-5.4); White Blood Count 11.8 K/mm3 (4.4-11.0)
[2023-05-06 08:12] LABS: Differential Indicated SCAN CRITERIA MET
[2023-05-06 08:39] LABS: Anion Gap 5 (5-15); BUN 12 mg/dL (7-18); BUN/Creat Ratio 15.4 RATIO (10-20); Chloride 105 mmol/L (98-107); Creatinine, Serum 0.78 mg/dL (0.55-1.02); EST Glomerular Filtration Rate 76 mL/min (>60); Est Glom Filt Rate - Afr Amer 92 mL/min (>60); Estimated Creatinine Clearance 62.27 ml/min; Glucose 73 mg/dL (74-106); Potassium 3.3 mmol/L (3.5-5.1); Sodium Level 137 mmol/L (136-145)
[2023-05-06 08:48] LABS: Anisocytosis 3+; Differential Comment SCANNED
[2023-05-06] MEDS: Pantoprazole Sodium 40 MG Tablet PO (08:52)
[2023-05-06] MEDS: Glycerin/Hypromellose/PEG400 15 ml Bottle 1 DRP EACH EYE ×4 (08:52→21:36)
[2023-05-06] MEDS: Memantine Hydrochloride 10 MG Tablet PO ×2 (08:52→21:37)
[2023-05-06] MEDS: Calcium Carb/Vitamin D 1 TABLET Tablet PO ×2 (08:52→17:00)
[2023-05-06] MEDS: Venlafaxine HCl 75 MG Tablet PO ×2 (08:52→21:36)
[2023-05-06] MEDS: Magnesium Chloride 64 MG Delay Rel.Tablet 128 MG PO (08:52)
[2023-05-06] MEDS: levETIRAcetam 500 MG Tablet PO ×2 (08:53→21:36)
[2023-05-06] MEDS: Menthol/Lanolin/Calamine/Znox 113 GM Tube 1 APPLIC TOPICAL ×2 (08:53→21:36)
[2023-05-06] MEDS: guaiFENesin 600 MG Tablet PO ×2 (08:53→21:37)
[2023-05-06] MEDS: Ferrous Sulfate 325 MG Tablet PO (08:53)
[2023-05-06] MEDS: Aspirin 81 MG TAB.CHEW PO (08:53)
[2023-05-06] MEDS: Fluticasone 0.05% 1 SPRAY NASAL.SRY 2 SPRAY NASAL (08:53)
[2023-05-06] MEDS: Nystatin Powder 15gm Bottle 1 APPLIC TOPICAL ×2 (08:54→21:37)
[2023-05-06] MEDS: Cholecalciferol (VIT D3) 25 MCG TABLET (1,000 UNITS) PO (08:54)
[2023-05-06] MEDS: clonazePAM 0.5 MG Tablet PO ×2 (08:58→21:37)
--- NOTE | 2023-05-06 09:54 | CASEMGMT ---
Social Work [facility] is able to accept pt. A bed will be available on Wednesday. Precert will be needed prior to discharge and SW requested it be started at this time. PASRR completed in [place]. Pt will required a level II determination from the [place] Department [employer] Developmental Disabilities due to seizure disorder prior to discharge. BRAYAN met with pt's son and updated on this. Plan: [facility], pending precert and Level II determination from YULISSA Burnette
[2023-05-06 12:18] LABS: Bedside Glucose 274 mg/dL (74-106)
[2023-05-06] MEDS: Vibegron 75 MG TABLET PO (12:41)
[2023-05-06] MEDS: Insulin Glargine-YFGN 100 UNIT/ML Pen 36 UNIT SC (12:42)
[2023-05-06] MEDS: Insulin Lispro 100 UNIT/ML INSULN.PEN SC ×2 (12:45→16:59)
--- NOTE | 2023-05-06 14:07 | CHAPLAIN ---
Type of Pastoral Visit ___ Initial Visit _x__ Follow-up Visit ___ On-call Visit ___ General Patient Visit ___ Spiritual Assessment ___ Family Conference ___ Bereavement ___ Rapid Response ___ Code Blue ___ Other (describe below) Pastoral Care Referral From _x__ Patient ___ Family ___ Nurse ___ Physician ___ Medical Device Sales Representative ___ Lead Nitrate Processor ___ Other (describe below) Sacrament/Intervention _x__ Active listening ___ Anointing ___ Jew ___ Bereavement ___ Communion ___ Francy exploration ___ ___ Life review _x__ Prayer ___ Reconciliation ___ Sacrament of Sick ___ Supportive presence ___ Wedding ___ Other (describe below) Pastoral Comments patient is awake this time, son is sitting in the chair in the corner of the room; pt states that she is doing 'pretty good'; pt is hopeful for better health; pt can describe where she lives and asks for a prayer; pt is limited in conversation and the visit ends
--- NOTE | 2023-05-06 15:25 | PCM.PN.HOSP ---
Subjective Subjective Doing well, no issues overnight. Feels back to baseline. Objective Data Objective Data Vital Signs: Vital Signs Temp Pulse Resp BP Pulse Ox O2 Del Method O2 Flow Rate 98.5 F 98 18 104/49 L 93 Room Air 1.5 05/06/23 09:18 05/06/23 14:15 05/06/23 14:15 05/06/23 09:18 05/06/23 11:07 05/06/23 09:18 05/06/23 11:07 Oxygen Flow Rate (L/min) 1.5 Oxygen Delivery Method Room Air Weight: 190 lb 2 oz Body Mass Index (BMI) 33.7 Intake & Output: Intake and Output for Last 24 Hours 05/05/23 05/06/23 05/07/23 03:59 03:59 03:59 Intake Total 1050 / 1050 1350 / 1350 Balance 1050 / 1050 1350 / 1350 Lab / Micro Data 05/06/23 06:47 05/06/23 06:47 Labs: Laboratory Results - last 24 hr 05/05/23 17:21: POC Glucose 199 H 05/05/23 21:02: POC Glucose 197 H 05/06/23 06:47: WBC 11.8 H, RBC 3.75 L, Hgb 9.1 L, Hct 30.7 L, MCV 81.9, MCH 24.3 L, MCHC 29.6 L, RDW Std Deviation 59.8 H, RDW Coeff of Faduom 21.8 H, Plt Count 285, MPV 10.6, Immature Gran % (Auto) 0.500, Neut % (Auto) 76.5 H, Lymph % (Auto) 15.5 L, [place] % (Auto) 6.4, Eos % (Auto) 0.8, Baso % (Auto) 0.3, Absolute Neuts (auto) 9.0 H, Absolute Lymphs (auto) 1.83, Nucleated RBC % 0, Differential Comment SCANNED, Anisocytosis 3+, Sodium 137, Potassium 3.3 L, Chloride 105, Carbon Dioxide 27.0, Anion Gap 5, BUN 12, Creatinine 0.78, Estim Creat Clear Calc 62.27, Est GFR (MDRD) Af Amer 92, Est GFR (MDRD) Non-Af 76, BUN/Creatinine Ratio 15.4, Glucose 73 L, Calcium 8.0 L 05/06/23 06:50: POC Glucose 79 05/06/23 12:01: POC Glucose 274 H Physical Exam Narrative General: Alert, Oriented x3, Cooperative, No apparent distress HEENT: Atraumatic, PERRLA, EOMI, Normocephalic Oral: Moist Mucosa Neck: Supple, No JVD Lungs: Diminished, Normal air movement, No rhonchi, No wheeze, No rales Cardiovascular: Regular rate, Regular Rhythm, Normal S1, Normal S2, No murmurs Abdomen: Soft, Non Tender, Non-Distended, No Hepato-splenomegaly Extremities: No edema, Capillary Refill Less than 3 Seconds Skin: No rashes, No breakdown Musculoskeletal: No Tenderness to Palpation of Joints or Extremities Neurological: No focal neurological deficits, Motor Exam 5/5 strength throughout, Sensory exam intact to light touch and pain Psych/Mental Status: Normal Affect, Appropriate Assessment & Plan Assessment/Plan (1) Unresponsive episode: PLAN: Plan 1. Unresponsiveness/dehydration ? Unclear as to where the unresponsiveness came from, she did improve with Narcan however there is no opiates in your urine drug screen ? She does take Klonopin and gabapentin but unlikely to overdose in the setting of an assisted living ? She has been monitored overnight without any repeat in her unresponsiveness, currently awaiting placement to skilled ? Renal function has returned to baseline with IV fluids ? Blood sugars are stable 2. Vulvovaginal candidiasis ? She does not get this issue after antibiotics and she was recently completing a course of antibiotics for pneumonia ? She received a one-time dose of Diflucan 150 mg 3. DM2 ? Continue with her home insulin, will hold metformin ? Accu-Cheks ACHS ? Will monitor make adjustments as necessary 4. Seizure disorder ? It does not appear that she had a seizure at the retirement ? Continue with her home Keppra 5. Anxiety/depression ? Stable ? Continue with her home medications 6. Hyperlipidemia ? Stable ? Continue with Crestor 7. COPD ? Not in exacerbation ? Continue with her home inhalers 8. Osteoporosis ? Continue with her weekly alendronate DVT: Ambulation Charges/Coding Visit Charges Inpatient E&M: 62134 Subs Hosp L2
[2023-05-06 17:22] LABS: Bedside Glucose 286 mg/dL (74-106)
[2023-05-06] MEDS: Rosuvastatin 20 MG Tablet PO (21:36)
[2023-05-06] MEDS: OLANZapine 2.5 MG Tablet 7.5 MG PO (21:37)
[2023-05-06 21:59] LABS: Bedside Glucose 213 mg/dL (74-106)
[2023-05-07] VITALS (11 sets, daily range): BP systolic 102–125; BP diastolic 51–62; PULSE 96–106; RESP 16–25; TEMP 36.6–37.6; O2SAT 92–96
[2023-05-07] MEDS: Gabapentin 100 MG Capsule 200 MG PO ×3 (06:37→21:34)
[2023-05-07] MEDS: Insulin Lispro 100 UNIT/ML INSULN.PEN SC ×3 (06:37→16:27)
[2023-05-07] MEDS: Dicyclomine 10 MG Capsule 20 MG PO ×3 (06:37→21:35)
[2023-05-07] MEDS: Albuterol 2.5 MG/3 ML VIAL.NEB. INHALATION ×2 (06:51→19:15)
[2023-05-07] MEDS: Budesonide Respules 0.5 MG/2 ML AMPUL.NEB. INHALATION ×2 (06:51→19:15)
[2023-05-07 07:03] LABS: Bedside Glucose 163 mg/dL (74-106)
[2023-05-07] MEDS: Ferrous Sulfate 325 MG Tablet PO (07:48)
[2023-05-07] MEDS: Aspirin 81 MG TAB.CHEW PO (07:48)
--- NOTE | 2023-05-07 09:12 | CASEMGMT ---
[facility]charge Planning [facility] that updates be sent Wednesday so that precert can be submitted. Hansa Lindsey, Discharge Planning Asst.
--- NOTE | 2023-05-07 09:18 | MRI_ITS ---
STUDY: MRI BRAIN WITHOUT CONTRAST REASON FOR EXAM: Female, 78 years old. rule out stroke -- stent in arm TECHNIQUE: Standardized multiplanar fat and water weighted pulse sequences were obtained. COMPARISON: CT of the brain May 04, 2023 FINDINGS: There is mild cerebral atrophy and minor periventricular white matter hyperintensity which may be due to normal aging.. There is no significant white matter disease or evidence for acute infarct . Normal bilateral basal ganglia. Normal thalami. There is no extra-axial fluid accumulation. Normal flow voids within the major intracranial circulation suggesting patency by spin echo criteria. Normal sella turcica, pituitary gland, infundibular stalk, optic chiasm and hypothalamus. Normal tectal plate and pineal gland. Normal midbrain, octavio and medulla. Normal cerebellum. Normal basal cisterns. Normal bilateral temporal bones. Normal bilateral internal auditory canals. Mild increased signal within the right mastoid which may be due to chronic inflammatory changes. Postsurgical changes of the orbits.. Minor mucosal thickening of left maxillary and bilateral ethmoid sinuses. Normal calvarium and skull base. Normal visualized soft tissue structures. Normal visualized upper cervical spine. MRI/Brain without Contrast IMPRESSION: Mild atrophy and minor periventricular white matter changes.. No significant white matter disease or evidence for acute infarct Electronically Signed: Tanner Ruiz MD at 18:19 EDT ,
[2023-05-07] MEDS: Calcium Carb/Vitamin D 1 TABLET Tablet PO ×2 (10:27→16:30)
[2023-05-07] MEDS: Cholecalciferol (VIT D3) 25 MCG TABLET (1,000 UNITS) PO (10:27)
[2023-05-07] MEDS: Magnesium Chloride 64 MG Delay Rel.Tablet 128 MG PO (10:27)
[2023-05-07] MEDS: Pantoprazole Sodium 40 MG Tablet PO (10:27)
[2023-05-07] MEDS: Memantine Hydrochloride 10 MG Tablet PO ×2 (10:27→21:36)
[2023-05-07] MEDS: guaiFENesin 600 MG Tablet PO ×2 (10:27→21:35)
[2023-05-07] MEDS: clonazePAM 0.5 MG Tablet PO ×2 (10:27→21:34)
[2023-05-07] MEDS: Venlafaxine HCl 75 MG Tablet PO ×2 (10:28→21:34)
[2023-05-07] MEDS: Vibegron 75 MG TABLET PO (10:28)
[2023-05-07] MEDS: levETIRAcetam 500 MG Tablet PO ×2 (10:28→21:35)
[2023-05-07] MEDS: Insulin Glargine-YFGN 100 UNIT/ML Pen 36 UNIT SC (10:29)
[2023-05-07] MEDS: Glycerin/Hypromellose/PEG400 15 ml Bottle 1 DRP EACH EYE ×4 (10:30→21:35)
[2023-05-07] MEDS: Menthol/Lanolin/Calamine/Znox 113 GM Tube 1 APPLIC TOPICAL ×2 (10:32→21:35)
[2023-05-07] MEDS: Nystatin Powder 15gm Bottle 1 APPLIC TOPICAL ×2 (10:34→21:42)
--- NOTE | 2023-05-07 11:23 | PN.HOSP_ITS ---
Subjective Subjective Doing well, no issues overnight Objective Data Objective Data Vital Signs: Vital Signs Temp Pulse Resp BP Pulse Ox O2 Del Method O2 Flow Rate 97.8 F 98 18 111/51 L 92 Nasal Cannula 2 05/07/23 09:27 05/07/23 09:27 05/07/23 09:27 05/07/23 09:27 05/07/23 09:40 05/07/23 09:27 05/07/23 09:40 Oxygen Flow Rate (L/min) 2 Oxygen Delivery Method Nasal Cannula Weight: 190 lb 2 oz Body Mass Index (BMI) 33.7 Intake & Output: Intake and Output for Last 24 Hours 05/06/23 05/07/23 05/08/23 03:59 03:59 03:59 Intake Total 1350 / 1350 1000 / 1000 140 / 140 Balance 1350 / 1350 1000 / 1000 140 / 140 Lab / Micro Data 05/06/23 06:47 05/06/23 06:47 Labs: Laboratory Results - last 24 hr 05/06/23 12:01: POC Glucose 274 H 05/06/23 16:57: POC Glucose 286 H 05/06/23 21:33: POC Glucose 213 H 05/07/23 06:36: POC Glucose 163 H Physical Exam Narrative General: Alert, Oriented x3, Cooperative, No apparent distress HEENT: Atraumatic, PERRLA, EOMI, Normocephalic Oral: Moist Mucosa Neck: Supple, No JVD Lungs: Diminished, Normal air movement, No rhonchi, No wheeze, No rales Cardiovascular: Regular rate, Regular Rhythm, Normal S1, Normal S2, No murmurs Abdomen: Soft, Non Tender, Non-Distended, No Hepato-splenomegaly Extremities: No edema, Capillary Refill Less than 3 Seconds Skin: No rashes, No breakdown Musculoskeletal: No Tenderness to Palpation of Joints or Extremities Neurological: No focal neurological deficits, Motor Exam 5/5 strength throughout, Sensory exam intact to light touch and pain Psych/Mental Status: Normal Affect, Appropriate Assessment & Plan Assessment/Plan (1) Unresponsive episode: PLAN: Plan 1. Unresponsiveness/dehydration ? Unclear as to where the unresponsiveness came from, she did improve with Narcan however there is no opiates in your urine drug screen ? She does take Klonopin and gabapentin but unlikely to overdose in the setting of an assisted living ? She has not had any further episodes ? Renal function has returned to baseline with IV fluids ? Blood sugars are stable ? PT/OT for evaluation and discharge planning 2. Vulvovaginal candidiasis ? She does not get this issue after antibiotics and she was recently completing a course of antibiotics for pneumonia ? She received a one-time dose of Diflucan 150 mg 3. DM2 ? Continue with her home insulin, will hold metformin ? Accu-Cheks ACHS ? Will monitor make adjustments as necessary 4. Seizure disorder ? It does not appear that she had a seizure at the [facility] ? Continue with her home Keppra 5. Anxiety/depression ? Stable ? Continue with her home medications 6. Hyperlipidemia ? Stable ? Continue with Crestor 7. COPD ? Not in exacerbation ? Continue with her home inhalers 8. Osteoporosis ? Continue with her weekly alendronate DVT: Ambulation Charges/Coding Visit Charges Inpatient E&M: 14141 Subs Hosp L2
[2023-05-07 12:41] LABS: Bedside Glucose 446 mg/dL (74-106)
[2023-05-07] MEDS: Fluticasone 0.05% 1 SPRAY NASAL.SRY 2 SPRAY NASAL (14:18)
[2023-05-07 14:52] LABS: Bedside Glucose 321 mg/dL (74-106)
[2023-05-07 16:50] LABS: Bedside Glucose 383 mg/dL (74-106)
[2023-05-07] MEDS: Alendronate Sodium 70 MG Tablet PO (17:49)
--- NOTE | 2023-05-07 17:55 | NURSING ---
MRI called- awaiting results.
[2023-05-07] MEDS: Rosuvastatin 20 MG Tablet PO (21:34)
[2023-05-07] MEDS: OLANZapine 2.5 MG Tablet 7.5 MG PO (21:36)
[2023-05-07] MEDS: Insulin Glargine-YFGN 100 UNIT/ML Pen 16 UNIT SC (21:40)
[2023-05-07] MEDS: Acetaminophen 325 MG Tablet 650 MG PO (21:58)
[2023-05-07 22:40] LABS: Bedside Glucose 267 mg/dL (74-106)
[2023-05-08] VITALS (9 sets, daily range): BP systolic 104–128; BP diastolic 53–66; PULSE 88–100; RESP 16–20; TEMP 36.3–37.3; O2SAT 90–96
[2023-05-08] MEDS: Dicyclomine 10 MG Capsule 20 MG PO ×3 (06:22→21:18)
[2023-05-08] MEDS: Insulin Lispro 100 UNIT/ML INSULN.PEN SC ×3 (06:22→16:41)
[2023-05-08] MEDS: Gabapentin 100 MG Capsule 200 MG PO ×3 (06:22→21:15)
[2023-05-08 06:30] LABS: Absolute Lymphocyte Count 1.58 X10^3/uL (0.83-4.51); Basophil# 0.04 X10^3/uL; Basophil% 0.4 % (0-1); Eosinophil# 0.13 X10^3/uL; Eosinophils% 1.4 % (0-5); Hematocrit 30.8 % (37-47); Hemoglobin 9.2 g/dL (12.0-15.0); Lymphocyte # 1.58 X10^3/ul (0.83-4.51); Lymphocyte % 16.9 % (19-41); Mean Corp Hgb Conc 29.9 g/dL (32-36); Mean Corpuscular Hgb 24.7 pg (27.0-32.0); Mean Corpuscular Volume 82.8 fL (81-99); Mean Platelet Vol. 10.5 fl (6.2-12.0); Monocyte# 0.61 X10^3/uL; Monocyte% 6.5 % (0-10); NRBC Flagged by Analyzer 0 % (0-5); Neutrophil # 6.95 X10^3/uL (2.7-7.7); Neutrophil % 74.3 % (47-70); POSITIVE MORPHOLOGY YES; Platelet Count 248 K/mm3 (150-450); RBC Distribution Width CV 22.4 % (11.6-14.6); RBC Distribution Width SD 61.9 fl (35.1-43.9); Red Blood Count 3.72 M/mm3 (4.2-5.4); White Blood Count 9.4 K/mm3 (4.4-11.0)
[2023-05-08 06:34] LABS: Differential Indicated SCAN CRITERIA MET
[2023-05-08 06:44] LABS: Anion Gap 4 (5-15); BUN 13 mg/dL (7-18); BUN/Creat Ratio 14.8 RATIO (10-20); Calcium,Total 7.8 mg/dL (8.5-10.1); Chloride 107 mmol/L (98-107); Creatinine, Serum 0.88 mg/dL (0.55-1.02); EST Glomerular Filtration Rate 67 mL/min (>60); Est Glom Filt Rate - Afr Amer 80 mL/min (>60); Estimated Creatinine Clearance 56.61 ml/min; Glucose 225 mg/dL (74-106); Potassium 3.5 mmol/L (3.5-5.1); Sodium Level 139 mmol/L (136-145)
[2023-05-08] MEDS: Albuterol 2.5 MG/3 ML VIAL.NEB. INHALATION ×3 (06:53→20:42)
[2023-05-08] MEDS: Budesonide Respules 0.5 MG/2 ML AMPUL.NEB. INHALATION ×2 (06:53→20:42)
[2023-05-08 06:56] LABS: Bedside Glucose 208 mg/dL (74-106)
[2023-05-08 07:46] LABS: Anisocytosis 2+
[2023-05-08] MEDS: Aspirin 81 MG TAB.CHEW PO (10:02)
[2023-05-08] MEDS: Glycerin/Hypromellose/PEG400 15 ml Bottle 1 DRP EACH EYE ×4 (10:02→21:19)
[2023-05-08] MEDS: Ferrous Sulfate 325 MG Tablet PO (10:02)
[2023-05-08] MEDS: Calcium Carb/Vitamin D 1 TABLET Tablet PO ×2 (10:02→16:42)
[2023-05-08] MEDS: Fluticasone 0.05% 1 SPRAY NASAL.SRY 2 SPRAY NASAL (10:03)
[2023-05-08] MEDS: Vibegron 75 MG TABLET PO (10:07)
[2023-05-08] MEDS: Venlafaxine HCl 75 MG Tablet PO ×2 (10:07→21:18)
[2023-05-08] MEDS: Insulin Glargine-YFGN 100 UNIT/ML Pen 36 UNIT SC (10:08)
[2023-05-08] MEDS: Magnesium Chloride 64 MG Delay Rel.Tablet 128 MG PO (10:08)
[2023-05-08] MEDS: levETIRAcetam 500 MG Tablet PO ×2 (10:08→21:18)
[2023-05-08] MEDS: guaiFENesin 600 MG Tablet PO ×2 (10:09→21:18)
[2023-05-08] MEDS: Nystatin Powder 15gm Bottle 1 APPLIC TOPICAL ×2 (10:09→21:18)
[2023-05-08] MEDS: Pantoprazole Sodium 40 MG Tablet PO (10:10)
[2023-05-08] MEDS: Memantine Hydrochloride 10 MG Tablet PO ×2 (10:10→21:18)
[2023-05-08] MEDS: Cholecalciferol (VIT D3) 25 MCG TABLET (1,000 UNITS) PO (10:10)
[2023-05-08] MEDS: clonazePAM 0.5 MG Tablet PO (10:15)
--- NOTE | 2023-05-08 11:52 | CASEMGMT ---
Social Work Checked the [employer] and PASRR is still pending for the Level II MARCUS review. Plan: Lindsey Ray, pending results of PASRR and precert with insurance. -ANNELISE Barroso
[2023-05-08 12:16] LABS: Bedside Glucose 370 mg/dL (74-106)
--- NOTE | 2023-05-08 13:08 | PN.HOSP_ITS ---
Subjective Subjective Doing well, little bit sleepy today. Objective Data Objective Data Vital Signs: Vital Signs Temp Pulse Resp BP Pulse Ox O2 Del Method O2 Flow Rate 98.6 F 97 16 127/55 H 95 Nasal Cannula 2 05/08/23 07:43 05/08/23 07:43 05/08/23 07:43 05/08/23 07:43 05/08/23 07:43 05/08/23 07:43 05/08/23 07:43 Oxygen Flow Rate (L/min) 2 Oxygen Delivery Method Nasal Cannula Weight: 190 lb 2 oz Body Mass Index (BMI) 33.7 Intake & Output: Intake and Output for Last 24 Hours 05/07/23 05/08/23 05/09/23 03:59 03:59 03:59 Intake Total 1000 / 1000 1040 / 1040 100 / 100 Balance 1000 / 1000 1040 / 1040 100 / 100 Lab / Micro Data 05/08/23 05:49 05/08/23 05:49 Labs: Laboratory Results - last 24 hr 05/07/23 14:14: POC Glucose 321 H 05/07/23 16:25: POC Glucose 383 H 05/07/23 21:40: POC Glucose 267 H 05/08/23 05:49: WBC 9.4, RBC 3.72 L, Hgb 9.2 L, Hct 30.8 L, MCV 82.8, MCH 24.7 L , MCHC 29.9 L, RDW Std Deviation 61.9 H, RDW Coeff of Fadumo 22.4 H, Plt Count 248, MPV 10.5, Immature Gran % (Auto) 0.500, Neut % (Auto) 74.3 H, Lymph % (Auto) 16.9 L, [place] % (Auto) 6.5, Eos % (Auto) 1.4, Baso % (Auto) 0.4, Absolute Neuts (auto) 7.0, Absolute Lymphs (auto) 1.58, Nucleated RBC % 0, Anisocytosis 2+, Sodium 139, Potassium 3.5, Chloride 107, Carbon Dioxide 28.0, Anion Gap 4 L, BUN 13, Creatinine 0.88, Estim Creat Clear Calc 56.61, Est GFR (MDRD) Af Amer 80, Est GFR (MDRD) Non-Af 67, BUN/Creatinine Ratio 14.8, Glucose 225 H, Calcium 7.8 L 05/08/23 06:21: POC Glucose 208 H 05/08/23 11:52: POC Glucose 370 H Radiography Diagnostic Testing: Radiology Impression Brain MRI 05/07/23 09:18 IMPRESSION: Mild atrophy and minor periventricular white matter changes.. No significant white matter disease or evidence for acute infarct Electronically Signed: Tanner Ruiz MD at 18:19 EDT Reading Location ID and State: [facility] / [place] Tel , Service support , Physical Exam Narrative General: Alert, Oriented, Cooperative, No apparent distress HEENT: Atraumatic, PERRLA, EOMI, Normocephalic Oral: Moist Mucosa Neck: Supple, No JVD Lungs: Diminished, Normal air movement, No rhonchi, No wheeze, No rales Cardiovascular: Regular rate, Regular Rhythm, Normal S1, Normal S2, No murmurs Abdomen: Soft, Non Tender, Non-Distended, No Hepato-splenomegaly Extremities: No edema, Capillary Refill Less than 3 Seconds Skin: No rashes, No breakdown Musculoskeletal: No Tenderness to Palpation of Joints or Extremities Neurological: No focal neurological deficits, Motor Exam 5/5 strength throughou t, Sensory exam intact to light touch and pain Psych/Mental Status: Normal Affect, Appropriate Assessment & Plan Assessment/Plan (1) Unresponsive episode: PLAN: Plan 1. Unresponsiveness/dehydration ? Unclear as to where the unresponsiveness came from, she did improve with Narcan however there is no opiates in your urine drug screen ? She does take Klonopin and gabapentin but unlikely to overdose in the setting of an assisted living ? She has not had any further episodes ? Renal function has returned to baseline with IV fluids ? Blood sugars are stable ? PT/OT for evaluation and discharge planning to SNF when able to get pre-CERT ?MRI per family request was negative for stroke 2. Vulvovaginal candidiasis ? She does not get this issue after antibiotics and she was recently completing a course of antibiotics for pneumonia ? She received a one-time dose of Diflucan 150 mg 3. DM2 ? Continue with her home insulin, will hold metformin ? Accu-Cheks ACHS ? Will monitor make adjustments as necessary 4. Seizure disorder ? [facility] ? Continue with her home Keppra 5. Anxiety/depression ? Stable ? Continue with her home medications 6. Hyperlipidemia ? Stable ? Continue with Crestor 7. COPD ? Not in exacerbation ? Continue with her home inhalers 8. Osteoporosis ? Continue with her weekly alendronate DVT: Ambulation Charges/Coding Visit Charges Inpatient E&M: 26369 Subs Hosp L2
[2023-05-08] MEDS: Menthol/Lanolin/Calamine/Znox 113 GM Tube 1 APPLIC TOPICAL ×2 (14:51→21:21)
[2023-05-08] MEDS: Acetaminophen 325 MG Tablet 650 MG PO (15:43)
[2023-05-08 17:06] LABS: Bedside Glucose 233 mg/dL (74-106)
[2023-05-08] MEDS: OLANZapine 2.5 MG Tablet 7.5 MG PO (21:18)
[2023-05-08] MEDS: Rosuvastatin 20 MG Tablet PO (21:18)
[2023-05-08] MEDS: Insulin Glargine-YFGN 100 UNIT/ML Pen 16 UNIT SC (21:20)
[2023-05-08 21:47] LABS: Bedside Glucose 240 mg/dL (74-106)
[2023-05-09] VITALS (9 sets, daily range): BP systolic 119–133; BP diastolic 53–73; PULSE 94–107; RESP 16–26; TEMP 36.6–37.2; O2SAT 90–97
[2023-05-09] MEDS: Dicyclomine 10 MG Capsule 20 MG PO ×3 (06:07→22:39)
[2023-05-09] MEDS: Gabapentin 100 MG Capsule 200 MG PO ×3 (06:07→22:45)
[2023-05-09 06:46] LABS: Bedside Glucose 124 mg/dL (74-106)
[2023-05-09] MEDS: Albuterol 2.5 MG/3 ML VIAL.NEB. INHALATION ×3 (07:07→20:46)
[2023-05-09] MEDS: Budesonide Respules 0.5 MG/2 ML AMPUL.NEB. INHALATION ×2 (07:07→20:46)
[2023-05-09] MEDS: Aspirin 81 MG TAB.CHEW PO (08:09)
[2023-05-09] MEDS: Calcium Carb/Vitamin D 1 TABLET Tablet PO ×2 (08:09→16:29)
[2023-05-09] MEDS: Ferrous Sulfate 325 MG Tablet PO (08:09)
[2023-05-09] MEDS: Glycerin/Hypromellose/PEG400 15 ml Bottle 1 DRP EACH EYE ×4 (10:21→22:38)
[2023-05-09] MEDS: Menthol/Lanolin/Calamine/Znox 113 GM Tube 1 APPLIC TOPICAL ×2 (10:22→22:42)
[2023-05-09] MEDS: Fluticasone 0.05% 1 SPRAY NASAL.SRY 2 SPRAY NASAL (10:22)
[2023-05-09] MEDS: Venlafaxine HCl 75 MG Tablet PO ×2 (10:23→22:40)
[2023-05-09] MEDS: Insulin Glargine-YFGN 100 UNIT/ML Pen 36 UNIT SC (10:24)
[2023-05-09] MEDS: Vibegron 75 MG TABLET PO (10:24)
[2023-05-09] MEDS: levETIRAcetam 500 MG Tablet PO ×2 (10:25→22:39)
[2023-05-09] MEDS: Cholecalciferol (VIT D3) 25 MCG TABLET (1,000 UNITS) PO (10:26)
[2023-05-09] MEDS: Magnesium Chloride 64 MG Delay Rel.Tablet 128 MG PO (10:26)
[2023-05-09] MEDS: guaiFENesin 600 MG Tablet PO ×2 (10:26→22:39)
[2023-05-09] MEDS: Nystatin Powder 15gm Bottle 1 APPLIC TOPICAL ×2 (10:26→22:40)
[2023-05-09] MEDS: Memantine Hydrochloride 10 MG Tablet PO ×2 (10:27→22:40)
[2023-05-09] MEDS: Pantoprazole Sodium 40 MG Tablet PO (10:27)
[2023-05-09] MEDS: clonazePAM 0.5 MG Tablet PO ×2 (10:35→22:44)
--- NOTE | 2023-05-09 10:44 | PCM.PN.HOSP ---
Subjective Subjective Doing well, more alert. She states that she got a little bit more rest yesterday Objective Data Objective Data Vital Signs: Vital Signs Temp Pulse Resp BP Pulse Ox O2 Del Method O2 Flow Rate 98.3 F 105 H 16 133/73 H 90 Nasal Cannula 2 05/09/23 07:58 05/09/23 07:58 05/09/23 07:58 05/09/23 07:58 05/09/23 08:26 05/09/23 07:58 05/09/23 08:26 Oxygen Flow Rate (L/min) 2 Oxygen Delivery Method Nasal Cannula Weight: 190 lb 2 oz Body Mass Index (BMI) 33.7 Intake & Output: Intake and Output for Last 24 Hours 05/08/23 05/09/23 05/10/23 03:59 03:59 03:59 Intake Total 1040 / 1040 100 / 100 100 / 100 Balance 1040 / 1040 100 / 100 100 / 100 Lab / Micro Data 05/08/23 05:49 05/08/23 05:49 Labs: Laboratory Results - last 24 hr 05/08/23 11:52: POC Glucose 370 H 05/08/23 16:40: POC Glucose 233 H 05/08/23 21:13: POC Glucose 240 H 05/09/23 06:09: POC Glucose 124 H Physical Exam Narrative General: Alert, Oriented, Cooperative, No apparent distress HEENT: Atraumatic, PERRLA, EOMI, Normocephalic Oral: Moist Mucosa Neck: Supple, No JVD Lungs: Diminished, Normal air movement, No rhonchi, No wheeze, No rales Cardiovascular: Regular rate, Regular Rhythm, Normal S1, Normal S2, No murmurs Abdomen: Soft, Non Tender, Non-Distended, No Hepato-splenomegaly Extremities: No edema, Capillary Refill Less than 3 Seconds Skin: No rashes, No breakdown Musculoskeletal: No Tenderness to Palpation of Joints or Extremities Neurological: No focal neurological deficits, Motor Exam 5/5 strength throughout, Sensory exam intact to light touch and pain Psych/Mental Status: Normal Affect, Appropriate Assessment & Plan Assessment/Plan (1) Unresponsive episode: PLAN: Plan 1. Unresponsiveness/dehydration ? Unclear as to where the unresponsiveness came from, she did improve with Narcan however there is no opiates in your urine drug screen ? She does take Klonopin and gabapentin but unlikely to overdose in the setting of an assisted living ? She has not had any further episodes ? Renal function has returned to baseline with IV fluids ? Blood sugars are stable ? PT/OT for evaluation and discharge planning to SNF when able to get pre-CERT ?MRI per family request was negative for stroke 2. Vulvovaginal candidiasis?resolved ? She does not get this issue after antibiotics and she was recently completing a course of antibiotics for pneumonia ? She received a one-time dose of Diflucan 150 mg 3. DM2 ? Continue with her home insulin, will hold metformin ? Accu-Cheks ACHS ? Will monitor make adjustments as necessary 4. Seizure disorder ? It does not appear that she [facility] a [facility] ? Continue with her home Keppra 5. Anxiety/depression ? Stable ? Continue with her home medications 6. Hyperlipidemia ? Stable ? Continue with Crestor 7. COPD ? Not in exacerbation ? Continue with her home inhalers 8. Osteoporosis ? Continue with her weekly alendronate DVT: Lovenox Charges/Coding Visit Charges Inpatient E&M: 60397 Subs Hosp L2
[2023-05-09] MEDS: Enoxaparin 40 MG/0.4 ML Syringe SC (11:35)
[2023-05-09] MEDS: Insulin Lispro 100 UNIT/ML INSULN.PEN SC ×2 (11:38→16:26)
[2023-05-09 12:00] LABS: Bedside Glucose 327 mg/dL (74-106)
[2023-05-09 16:51] LABS: Bedside Glucose 208 mg/dL (74-106)
[2023-05-09] MEDS: OLANZapine 2.5 MG Tablet 7.5 MG PO (22:39)
[2023-05-09] MEDS: Rosuvastatin 20 MG Tablet PO (22:40)
[2023-05-09] MEDS: Insulin Glargine-YFGN 100 UNIT/ML Pen 16 UNIT SC (22:47)
[2023-05-10] VITALS (10 sets, daily range): BP systolic 108–154; BP diastolic 49–74; PULSE 74–110; RESP 16–24; TEMP 36.7–37.3; O2SAT 91–97
[2023-05-10 00:41] LABS: Bedside Glucose 214 mg/dL (74-106)
[2023-05-10] MEDS: Budesonide Respules 0.5 MG/2 ML AMPUL.NEB. INHALATION ×2 (06:56→19:01)
[2023-05-10] MEDS: Albuterol 2.5 MG/3 ML VIAL.NEB. INHALATION ×3 (06:56→19:01)
[2023-05-10] MEDS: Dicyclomine 10 MG Capsule 20 MG PO ×3 (06:59→20:37)
[2023-05-10] MEDS: Gabapentin 100 MG Capsule 200 MG PO ×3 (06:59→20:36)
[2023-05-10 07:04] LABS: Absolute Lymphocyte Count 2.21 X10^3/uL (0.83-4.51); Absolute Neutrophil Count 8.4 X10^3/uL (2.0-7.7); Basophil# 0.06 X10^3/uL; Basophil% 0.5 % (0-1); Eosinophil# 0.16 X10^3/uL; Eosinophils% 1.4 % (0-5); Hematocrit 29.5 % (37-47); Hemoglobin 8.8 g/dL (12.0-15.0); Lymphocyte # 2.21 X10^3/ul (0.83-4.51); Lymphocyte % 19.2 % (19-41); Mean Corp Hgb Conc 29.8 g/dL (32-36); Mean Corpuscular Hgb 24.5 pg (27.0-32.0); Mean Corpuscular Volume 82.2 fL (81-99); Monocyte# 0.65 X10^3/uL; Monocyte% 5.6 % (0-10); NRBC Flagged by Analyzer 0 % (0-5); Neutrophil # 8.39 X10^3/uL (2.7-7.7); Neutrophil % 72.8 % (47-70); POSITIVE MORPHOLOGY YES; Platelet Count 263 K/mm3 (150-450); RBC Distribution Width CV 22.9 % (11.6-14.6); Red Blood Count 3.59 M/mm3 (4.2-5.4); White Blood Count 11.5 K/mm3 (4.4-11.0)
[2023-05-10 07:21] LABS: Differential Indicated SCAN CRITERIA MET
[2023-05-10 07:22] LABS: Bedside Glucose 132 mg/dL (74-106)
[2023-05-10 07:41] LABS: Anion Gap 6 (5-15); BUN 12 mg/dL (7-18); Chloride 105 mmol/L (98-107); Creatinine, Serum 0.71 mg/dL (0.55-1.02); EST Glomerular Filtration Rate 86 mL/min (>60); Est Glom Filt Rate - Afr Amer 104 mL/min (>60); Estimated Creatinine Clearance 62.27 ml/min; Glucose 131 mg/dL (74-106); Potassium 3.4 mmol/L (3.5-5.1); Sodium Level 137 mmol/L (136-145)
[2023-05-10] MEDS: Aspirin 81 MG TAB.CHEW PO (08:49)
[2023-05-10] MEDS: Calcium Carb/Vitamin D 1 TABLET Tablet PO ×2 (08:50→17:08)
[2023-05-10] MEDS: Ferrous Sulfate 325 MG Tablet PO (08:50)
[2023-05-10] MEDS: clonazePAM 0.5 MG Tablet PO ×2 (10:57→20:36)
[2023-05-10] MEDS: guaiFENesin 600 MG Tablet PO ×2 (10:58→20:38)
[2023-05-10] MEDS: levETIRAcetam 500 MG Tablet PO ×2 (10:58→20:40)
[2023-05-10] MEDS: Cholecalciferol (VIT D3) 25 MCG TABLET (1,000 UNITS) PO (10:58)
[2023-05-10] MEDS: Venlafaxine HCl 75 MG Tablet PO ×2 (10:58→20:37)
[2023-05-10] MEDS: Vibegron 75 MG TABLET PO (10:58)
[2023-05-10] MEDS: Pantoprazole Sodium 40 MG Tablet PO (10:58)
[2023-05-10] MEDS: Magnesium Chloride 64 MG Delay Rel.Tablet 128 MG PO (10:58)
[2023-05-10] MEDS: Memantine Hydrochloride 10 MG Tablet PO ×2 (10:58→20:39)
[2023-05-10] MEDS: Nystatin Powder 15gm Bottle 1 APPLIC TOPICAL ×2 (10:59→20:36)
[2023-05-10] MEDS: Glycerin/Hypromellose/PEG400 15 ml Bottle 1 DRP EACH EYE ×4 (11:00→20:39)
[2023-05-10] MEDS: Menthol/Lanolin/Calamine/Znox 113 GM Tube 1 APPLIC TOPICAL ×2 (11:01→21:43)
[2023-05-10] MEDS: Fluticasone 0.05% 1 SPRAY NASAL.SRY 2 SPRAY NASAL (11:02)
[2023-05-10] MEDS: Insulin Glargine-YFGN 100 UNIT/ML Pen 36 UNIT SC (11:05)
[2023-05-10] MEDS: Enoxaparin 40 MG/0.4 ML Syringe SC (11:07)
[2023-05-10] MEDS: Insulin Lispro 100 UNIT/ML INSULN.PEN SC ×2 (12:02→17:07)
[2023-05-10 12:17] LABS: Bedside Glucose 350 mg/dL (74-106)
--- NOTE | 2023-05-10 13:42 | CASEMGMT ---
Social Work Updated clinicals sent to Lindsey Ray for precert. Phone call to Department of DD. Level II review has not yet be completed but Romario states will be done in the next day or 2. Plan: Lindsey Ray, pending precert and Level II determination YULISSA Ingram
--- NOTE | 2023-05-10 14:53 | PN.HOSP_ITS ---
Reason for Visit Reason for Visit: Diagnoses Transient alteration of awareness (05/04/23) Subjective Subjective No acute events overnight. Patient seen at bedside this morning. Sitting comfortably in bedside chair, no acute distress. Answering questions appropriately for me today. Denies any acute pain or discomfort. No other acute concerns this time. Objective Data Objective Data Vital Signs: Vital Signs Temp Pulse Resp BP Pulse Ox O2 Del Method O2 Flow Rate 98.6 F 87 16 108/49 L 91 Nasal Cannula 2.5 05/10/23 08:30 05/10/23 13:06 05/10/23 13:06 05/10/23 08:30 05/10/23 13:06 05/10/23 13:06 05/10/23 13:06 Oxygen Flow Rate (L/min) 2.5 Oxygen Delivery Method Nasal Cannula Weight: 86.239 kg Body Mass Index (BMI) 33.7 Intake & Output: Intake and Output for Last 24 Hours 05/08/23 05/09/23 05/10/23 23:59 23:59 23:59 Intake Total 400 / 400 100 / 300 1000 / 1000 Balance 400 / 400 100 / 300 1000 / 1000 Lab / Micro Data 05/10/23 06:47 05/10/23 06:47 Labs: Laboratory Results - last 24 hr 05/09/23 16:24: POC Glucose 208 H 05/09/23 22:46: POC Glucose 214 H 05/10/23 06:47: WBC 11.5 H, RBC 3.59 L, Hgb 8.8 L, Hct 29.5 L, MCV 82.2, MCH 24.5 L, MCHC 29.8 L, RDW Std Deviation 65.0 H, RDW Coeff of Fadumo 22.9 H, Plt Count 263, MPV 10.0, Immature Gran % (Auto) 0.500, Neut % (Auto) 72.8 H, Lymph % (Auto) 19.2, [place] % (Auto) 5.6, Eos % (Auto) 1.4, Baso % (Auto) 0.5, Absolute Neuts (auto) 8.4 H, Absolute Lymphs (auto) 2.21, Nucleated RBC % 0, Sodium 137, Potassium 3.4 L, Chloride 105, Carbon Dioxide 26.0, Anion Gap 6, BUN 12, Creatinine 0.71, Estim Creat Clear Calc 62.27, Est GFR (MDRD) Af Amer 104, Est GFR (MDRD) Non-Af 86, BUN/Creatinine Ratio 17.0, Glucose 131 H, Calcium 8.0 L 05/10/23 06:56: POC Glucose 132 H 05/10/23 11:59: POC Glucose 350 H Physical Exam Const alert, oriented x3 and no apparent distress Constitutional Narrative: Pleasant elderly female, obese, sitting up comfortably in bedside chair, conversing normally, no acute distress. General Appearance: cooperative and comfortable HEENT normocephalic, head/scalp atraumatic, hearing grossly normal bilaterally, nasal mucous membranes and turbinates normal and moist oral mucous membranes Eyes PERRL, EOMs intact bilaterally and conjunctivae normal Neck full ROM Chest inspection of chest normal Resp normal respiratory effort, normal air movement, no use of accessory muscles and clear to auscultation bilaterally Cardio regular rate, regular rhythm, no murmurs and peripheral pulses 2+ throughout GI normal to inspection, nondistended, normoactive bowel sounds, soft to palpation, non-tender and non-distended Back/Spine normal ROM Extremity normal to inspection, full ROM and no pedal edema Skin no rashes or lesions noted Neuro moves all extremities and no focal motor deficits Speech: speech normal Psych mental status grossly normal Assessment & Plan Assessment/Plan (1) Unresponsive episode: PLAN: Plan Patient is a 78-year-old female who presented to [facility] ED on 05/04/2023 after an unresponsive episode at her assisted living facility. 1. Unresponsive episode, debility ? Unclear as to where the unresponsiveness came from, she did improve with Narcan however there is no opiates in your urine drug screen. She does take Klonopin and gabapentin but unlikely to overdose in the setting of an assisted living. ? Had SD on admission that resolved with IV fluids. Labs were otherwise fairly benign. CT head on admit nonacute. MRI brain on 05/06 per family request also with no acute findings. ? Notably has not had any further episodes since admission. ? PT/OT/case management following. Lives in an assisted living, qualified for SNF on discharge. Medically for discharge on 05/09, awaiting placement. 2. Full vaginal candidiasis, resolved ? Patient noted that she has this issue often after antibiotics and she recently completed a course of antibiotics for pneumonia. ? Received a one-time dose of Diflucan 150 mg. Chronic medical conditions: ? Type 2 diabetes mellitus with neuropathy: Continue home Lantus 36 units in the morning and 16 units at night, Humalog sliding scale insulin with meals as needed. Accu-Cheks ACHS, adjust regimen as needed. Continue home gabapentin. Will likely be fine to resume home metformin on discharge. ? Seizure disorder: Continue home Keppra. ? Anxiety/depression: Stable. Continue home clonazepam, olanzapine, venlafaxine. ? Hyperlipidemia: Continue statin. ? COPD: Stable, not on supplemental O2. Continue home inhalers. ? Osteoporosis: Continue home alendronate. ? Cognitive impairment: Continue home memantine. ? GERD: Continue home PPI. DVT prophylaxis: Lovenox CODE STATUS: DNR CCA, DNI Expected disposition: SNF, medically ready for discharge on 05/09, awaiting placement Total clinical time spent by myself addressing the patient's medical issues, reviewing all the data, and collaborating with patient's care team: 35 minutes. Charges/Coding Visit Charges Inpatient E&M: 76863 Subs Hosp L2
[2023-05-10 17:17] LABS: Bedside Glucose 174 mg/dL (74-106)
[2023-05-10] MEDS: Rosuvastatin 20 MG Tablet PO (20:36)
[2023-05-10] MEDS: Insulin Glargine-YFGN 100 UNIT/ML Pen 16 UNIT SC (20:38)
[2023-05-10] MEDS: OLANZapine 2.5 MG Tablet 7.5 MG PO (20:39)
[2023-05-10 22:38] LABS: Bedside Glucose 173 mg/dL (74-106)
[2023-05-11] VITALS (12 sets, daily range): BP systolic 107–136; BP diastolic 47–91; PULSE 88–110; RESP 17–28; TEMP 36.6–37.1; O2SAT 90–100
[2023-05-11] MEDS: Dicyclomine 10 MG Capsule 20 MG PO ×3 (05:26→21:45)
[2023-05-11] MEDS: FLUCONAZOLE 150 MG TABLET PO (05:26)
[2023-05-11] MEDS: Gabapentin 100 MG Capsule 200 MG PO ×3 (05:26→21:46)
[2023-05-11] MEDS: Dextrose 50%-Water 25 GM/50 ML DISP.SYRIN IV (06:48)
[2023-05-11] MEDS: Budesonide Respules 0.5 MG/2 ML AMPUL.NEB. INHALATION ×2 (07:05→20:08)
[2023-05-11] MEDS: Albuterol 2.5 MG/3 ML VIAL.NEB. INHALATION ×3 (07:05→20:08)
--- NOTE | 2023-05-11 07:25 | NURSING ---
This RN checked BS this am around 0630 and it was 69. Tried to give 4oz OJ but although patient responding, was not awake enough to drink it. Called charge nurse who came in and also could not wake up patient enough. An IV was quickly inserted and a full ampule of IV glucagon was given. Patient seemed to wake up more and after 15 minutes, her BS was 192. Still drowsy, but patient's baseline is awakens to voice to answer questions, but closes eyes once conversation is over. Breakfast was ordered for her.
[2023-05-11 08:10] LABS: Bedside Glucose 69 mg/dL (74-106)
[2023-05-11 08:10] LABS: Bedside Glucose 192 mg/dL (74-106)
[2023-05-11] MEDS: Magnesium Chloride 64 MG Delay Rel.Tablet 128 MG PO (08:55)
[2023-05-11] MEDS: levETIRAcetam 500 MG Tablet PO ×2 (08:55→21:47)
[2023-05-11] MEDS: Cholecalciferol (VIT D3) 25 MCG TABLET (1,000 UNITS) PO (08:55)
[2023-05-11] MEDS: Calcium Carb/Vitamin D 1 TABLET Tablet PO ×2 (08:55→16:48)
[2023-05-11] MEDS: Aspirin 81 MG TAB.CHEW PO (08:55)
[2023-05-11] MEDS: guaiFENesin 600 MG Tablet PO ×2 (08:56→21:46)
[2023-05-11] MEDS: Menthol/Lanolin/Calamine/Znox 113 GM Tube 1 APPLIC TOPICAL ×2 (08:56→21:44)
[2023-05-11] MEDS: Pantoprazole Sodium 40 MG Tablet PO (08:56)
[2023-05-11] MEDS: Vibegron 75 MG TABLET PO (08:56)
[2023-05-11] MEDS: Memantine Hydrochloride 10 MG Tablet PO ×2 (08:56→21:46)
[2023-05-11] MEDS: Venlafaxine HCl 75 MG Tablet PO ×2 (08:56→21:46)
[2023-05-11] MEDS: Ferrous Sulfate 325 MG Tablet PO (08:57)
[2023-05-11] MEDS: Nystatin Powder 15gm Bottle 1 APPLIC TOPICAL ×2 (08:57→21:44)
[2023-05-11 08:58] LABS: Bedside Glucose 133 mg/dL (74-106)
[2023-05-11 09:26] LABS: Absolute Lymphocyte Count 1.97 X10^3/uL (0.83-4.51); Absolute Neutrophil Count 9.4 X10^3/uL (2.0-7.7); Basophil# 0.04 X10^3/uL; Basophil% 0.3 % (0-1); Eosinophil# 0.12 X10^3/uL; Hematocrit 31.4 % (37-47); Hemoglobin 9.4 g/dL (12.0-15.0); Lymphocyte # 1.97 X10^3/ul (0.83-4.51); Mean Corp Hgb Conc 29.9 g/dL (32-36); Mean Corpuscular Hgb 24.9 pg (27.0-32.0); Mean Corpuscular Volume 83.1 fL (81-99); Mean Platelet Vol. 9.9 fl (6.2-12.0); Monocyte# 0.75 X10^3/uL; Monocyte% 6.1 % (0-10); NRBC Flagged by Analyzer 0 % (0-5); Neutrophil # 9.36 X10^3/uL (2.7-7.7); POSITIVE MORPHOLOGY YES; Platelet Count 284 K/mm3 (150-450); RBC Distribution Width CV 23.3 % (11.6-14.6); RBC Distribution Width SD 64.8 fl (35.1-43.9); Red Blood Count 3.78 M/mm3 (4.2-5.4); White Blood Count 12.3 K/mm3 (4.4-11.0)
[2023-05-11 09:33] LABS: Differential Indicated SCAN CRITERIA MET
[2023-05-11 09:36] LABS: Anion Gap 6 (5-15); BUN 11 mg/dL (7-18); BUN/Creat Ratio 12.1 RATIO (10-20); Calcium,Total 8.6 mg/dL (8.5-10.1); Chloride 105 mmol/L (98-107); Creatinine, Serum 0.91 mg/dL (0.55-1.02); EST Glomerular Filtration Rate 64 mL/min (>60); Est Glom Filt Rate - Afr Amer 78 mL/min (>60); Estimated Creatinine Clearance 54.75 ml/min; Glucose 132 mg/dL (74-106); Potassium 3.7 mmol/L (3.5-5.1); Sodium Level 136 mmol/L (136-145)
[2023-05-11 10:17] LABS: Differential Comment SCANNED
[2023-05-11 10:18] LABS: Anisocytosis 2+; Macrocytosis 1+; Microcytosis 1+
[2023-05-11] MEDS: Enoxaparin 40 MG/0.4 ML Syringe SC (10:25)
[2023-05-11] MEDS: Fluticasone 0.05% 1 SPRAY NASAL.SRY 2 SPRAY NASAL (10:26)
[2023-05-11] MEDS: Glycerin/Hypromellose/PEG400 15 ml Bottle 1 DRP EACH EYE ×4 (10:26→21:45)
[2023-05-11 11:38] LABS: Allen Test Positive; Base Excess 1 mmol/L (-2 to +2); Bicarbonate 24.3 mmol/L (22-26); Blood Gas Specimen Type ART; Mode Not entered; O2 Delivery Device Cannula; PO2 75 mmHG (75-100); SITE L Radial; SO2 96 % (95-99); Total Carbon Dioxide 25 mmol/L; pCO2 33.6 mmHg (35-45); pH 7.47 (7.35-7.45)
[2023-05-11] MEDS: Insulin Lispro 100 UNIT/ML INSULN.PEN SC ×2 (11:45→16:48)
[2023-05-11 12:35] LABS: Bedside Glucose 263 mg/dL (74-106)
--- NOTE | 2023-05-11 13:04 | CASEMGMT ---
Social Work Pt has a HCPOA on file naming her son Clifford Vanessa. Pt does not have a living will and is not interested in completing at this time. YULISSA Ingram
--- NOTE | 2023-05-11 14:14 | CASEMGMT ---
Discharge Planning Precert expires today. Most recent therapy notes sent as requested to extend precert. SW updated. Hansa Lindsey, Discharge Planning Asst.
--- NOTE | 2023-05-11 15:16 | PCM.PN.HOSP ---
Reason for Visit Reason for Visit: Diagnoses Transient alteration of awareness (05/04/23) Subjective Subjective No acute events overnight. Noted by nursing staff this morning that patient appeared to be harder to awaken and previous days. However, when patient's son arrived she awoke very easily and her mentation was similar to previous days. When I saw her this morning she was sleeping when I arrived to the room but when she awakened she had normal mentation. Son was present at bedside and noted that when awake patient seemed about back to her baseline. Patient denied any acute pain or discomfort this morning. No other acute concerns. Objective Data Objective Data Vital Signs: Vital Signs Temp Pulse Resp BP Pulse Ox O2 Del Method O2 Flow Rate 98.7 F 95 18 121/91 H 94 Room Air 2 05/11/23 14:05 05/11/23 14:05 05/11/23 14:05 05/11/23 14:05 05/11/23 14:05 05/11/23 14:05 05/11/23 09:14 Oxygen Flow Rate (L/min) 2 Oxygen Delivery Method Room Air Weight: 86.239 kg Body Mass Index (BMI) 33.7 Intake & Output: Intake and Output for Last 24 Hours 05/09/23 05/10/23 05/11/23 23:59 23:59 23:59 Intake Total 100 / 300 1850 / 2150 400 / 400 Balance 100 / 300 1850 / 2150 400 / 400 Lab / Micro Data 05/11/23 09:07 05/11/23 09:07 Labs: Laboratory Results - last 24 hr 05/10/23 17:00: POC Glucose 174 H 05/10/23 20:35: POC Glucose 173 H 05/11/23 06:30: POC Glucose 69 L 05/11/23 06:55: POC Glucose 192 H 05/11/23 08:40: POC Glucose 133 H 05/11/23 09:07: WBC 12.3 H, RBC 3.78 L, Hgb 9.4 L, Hct 31.4 L, MCV 83.1, MCH 24.9 L, MCHC 29.9 L, RDW Std Deviation 64.8 H, RDW Coeff of Fadumo 23.3 H, Plt Count 284, MPV 9.9, Immature Gran % (Auto) 0.600, Neut % (Auto) 76.0 H, Lymph % (Auto) 16.0 L, [place] % (Auto) 6.1, Eos % (Auto) 1.0, Baso % (Auto) 0.3, Absolute Neuts (auto) 9.4 H, Absolute Lymphs (auto) 1.97, Nucleated RBC % 0, Differential Comment SCANNED, Anisocytosis 2+, Microcytosis 1+, Macrocytosis 1+, Sodium 136, Potassium 3.7, Chloride 105, Carbon Dioxide 25.0, Anion Gap 6, BUN 11, Creatinine 0.91, Estim Creat Clear Calc 54.75, Est GFR (MDRD) Af Amer 78, Est GFR (MDRD) Non-Af 64, BUN/Creatinine Ratio 12.1, Glucose 132 H, Calcium 8.6 05/11/23 11:43: POC Glucose 263 H ABG Data ABG results: ABG 05/11/23 11:35 Specimen Type ART Sample Site L Radial pH 7.47 H Bicarbonate Actual 24.3 Total CO2 25 Base Excess 1 O2 Saturation 96 O2 % 2.0 ABG pCO2 33.6 L ABG pO2 75 Christofer Test Positive O2 Delivery Device Cannula Vent Mode Not entered Physical Exam Const alert, oriented x3 and no apparent distress Constitutional Narrative: Pleasant elderly female, obese, sitting up comfortably in bedside chair, conversing normally, no acute distress. General Appearance: cooperative and comfortable HEENT normocephalic, head/scalp atraumatic, hearing grossly normal bilaterally, nasal mucous membranes and turbinates normal and moist oral mucous membranes Eyes PERRL, EOMs intact bilaterally and conjunctivae normal Neck full ROM Chest inspection of chest normal Resp normal respiratory effort, normal air movement, no use of accessory muscles and clear to auscultation bilaterally Cardio regular rate, regular rhythm, no murmurs and peripheral pulses 2+ throughout GI normal to inspection, nondistended, normoactive bowel sounds, soft to palpation, non-tender and non-distended Back/Spine normal ROM Extremity normal to inspection, full ROM and no pedal edema Skin no rashes or lesions noted Neuro moves all extremities and no focal motor deficits Speech: speech normal Psych mental status grossly normal Assessment & Plan Assessment/Plan (1) Unresponsive episode: PLAN: Plan Patient is a 78-year-old female who presented to [facility] ED on 05/04/2023 after an unresponsive episode at her assisted living facility. 1. Unresponsive episode, debility Unclear as to where the unresponsiveness came from, she did improve with Narcan however there is no opiates in your urine drug screen. She does take Klonopin and gabapentin but unlikely to overdose in the setting of an assisted living. Had SD on admission that resolved with IV fluids. Labs were otherwise fairly benign. CT head on admit nonacute. MRI brain on 05/06 per family request also with no acute findings. Notably has not had any further episodes since admission. ? PT/OT/case management following. Lives in an assisted living, qualified for SNF on discharge. Medically for discharge on 05/09, awaiting placement. 2. Full vaginal candidiasis, resolved ? Patient noted that she has this issue often after antibiotics and she recently completed a course of antibiotics for pneumonia. Received a one-time dose of Diflucan 150 mg. Chronic medical conditions: ? Type 2 diabetes mellitus with neuropathy: Continue home Lantus 36 units in the morning and 16 units at night, Humalog sliding scale insulin with meals as needed. Accu-Cheks ACHS, adjust regimen as needed. Continue home gabapentin. Will likely be fine to resume home metformin on discharge. ? Seizure disorder: Continue home Keppra. ? Anxiety/depression: Stable. Continue home clonazepam, olanzapine, venlafaxine. ? Hyperlipidemia: Continue statin. ? COPD: Stable, not on supplemental O2. Continue home inhalers. ? Osteoporosis: Continue home alendronate. ? Cognitive impairment: Continue home memantine. ? GERD: Continue home PPI. DVT prophylaxis: Lovenox CODE STATUS: DNR CCA, DNI Expected disposition: SNF, medically ready for discharge on 05/09, awaiting placement Total clinical time spent by myself addressing the patient's medical issues, reviewing all the data, and collaborating with patient's care team: 25 minutes. Charges/Coding Visit Charges Inpatient E&M: 30774 [facility] Hosp L1
--- NOTE | 2023-05-11 16:02 | CASEMGMT ---
Social Work Level II evaluation by [place] Department of has not yet been completed. Precert has been obtained but does tonight. DC program assistant sent additional clinicals to [facility] and requested extension of precert. Plan: [facility], pending precert and Level II determination YULISSA Ingram
[2023-05-11 17:07] LABS: Bedside Glucose 311 mg/dL (74-106)
[2023-05-11] MEDS: clonazePAM 0.5 MG Tablet PO (21:46)
[2023-05-11] MEDS: Rosuvastatin 20 MG Tablet PO (21:46)
[2023-05-11] MEDS: OLANZapine 2.5 MG Tablet 7.5 MG PO (21:46)
[2023-05-11 23:01] LABS: Bedside Glucose 274 mg/dL (74-106)
[2023-05-11] MEDS: Insulin Glargine-YFGN 100 UNIT/ML Pen 15 UNIT SC (23:08)
[2023-05-12] VITALS (11 sets, daily range): BP systolic 104–123; BP diastolic 55–64; PULSE 87–104; RESP 18–20; TEMP 36.6–36.9; O2SAT 86–97
[2023-05-12] MEDS: Gabapentin 100 MG Capsule 200 MG PO ×3 (05:12→20:29)
[2023-05-12] MEDS: Dicyclomine 10 MG Capsule 20 MG PO ×3 (05:12→20:24)
[2023-05-12] MEDS: Insulin Lispro 100 UNIT/ML INSULN.PEN SC ×3 (06:15→16:20)
[2023-05-12 06:48] LABS: Bedside Glucose 192 mg/dL (74-106)
[2023-05-12] MEDS: Budesonide Respules 0.5 MG/2 ML AMPUL.NEB. INHALATION ×2 (07:07→19:57)
[2023-05-12] MEDS: Albuterol 2.5 MG/3 ML VIAL.NEB. INHALATION ×3 (07:07→19:57)
[2023-05-12] MEDS: Aspirin 81 MG TAB.CHEW PO (08:43)
[2023-05-12] MEDS: Ferrous Sulfate 325 MG Tablet PO (08:43)
[2023-05-12] MEDS: Calcium Carb/Vitamin D 1 TABLET Tablet PO ×2 (08:43→16:20)
--- NOTE | 2023-05-12 08:44 | CASEMGMT ---
Social Work Level II evaluation by [facility] has not yet been obtained. SW sent additional clinical information to [facility] for precert extension. Pt to dc to [facility] with Level II evaluation is complete and Precert is obtained. YULISSA Ingram
[2023-05-12] MEDS: Fluticasone 0.05% 1 SPRAY NASAL.SRY 2 SPRAY NASAL (09:54)
[2023-05-12] MEDS: Glycerin/Hypromellose/PEG400 15 ml Bottle 1 DRP EACH EYE ×4 (09:57→20:41)
[2023-05-12] MEDS: levETIRAcetam 500 MG Tablet PO ×2 (09:58→20:24)
[2023-05-12] MEDS: Memantine Hydrochloride 10 MG Tablet PO ×2 (09:58→20:25)
[2023-05-12] MEDS: Magnesium Chloride 64 MG Delay Rel.Tablet 128 MG PO (09:58)
[2023-05-12] MEDS: Pantoprazole Sodium 40 MG Tablet PO (09:58)
[2023-05-12] MEDS: Vibegron 75 MG TABLET PO (09:58)
[2023-05-12] MEDS: Menthol/Lanolin/Calamine/Znox 113 GM Tube 1 APPLIC TOPICAL ×2 (09:58→20:33)
[2023-05-12] MEDS: Enoxaparin 40 MG/0.4 ML Syringe SC (09:59)
[2023-05-12] MEDS: guaiFENesin 600 MG Tablet PO ×2 (09:59→20:26)
[2023-05-12] MEDS: Venlafaxine HCl 75 MG Tablet PO ×2 (09:59→20:25)
[2023-05-12] MEDS: Cholecalciferol (VIT D3) 25 MCG TABLET (1,000 UNITS) PO (09:59)
[2023-05-12] MEDS: Nystatin Powder 15gm Bottle 1 APPLIC TOPICAL ×2 (10:00→20:26)
[2023-05-12] MEDS: clonazePAM 0.5 MG Tablet PO ×2 (10:06→20:24)
[2023-05-12 12:03] LABS: Bedside Glucose 368 mg/dL (74-106)
--- NOTE | 2023-05-12 12:41 | PN.HOSP_ITS ---
Reason for Visit Reason for Visit: Diagnoses Transient alteration of awareness (05/04/23) Subjective Subjective No acute events overnight. Patient seen at bedside this morning, son present. Patient was sitting up comfortably in bedside chair, conversing normally, in no acute distress. Appears similar to previous days. No other acute concerns this morning. Objective Data Objective Data Vital Signs: Vital Signs Temp Pulse Resp BP Pulse Ox O2 Del Method O2 Flow Rate 98.2 F 100 18 104/55 L 96 Nasal Cannula 2 05/12/23 08:31 05/12/23 08:31 05/12/23 08:31 05/12/23 08:31 05/12/23 08:31 05/12/23 08:35 05/12/23 08:31 Oxygen Flow Rate (L/min) 2 Oxygen Delivery Method Nasal Cannula Weight: 86.239 kg Body Mass Index (BMI) 33.7 Intake & Output: Intake and Output for Last 24 Hours 05/10/23 05/11/23 05/12/23 23:59 23:59 23:59 Intake Total 1850 / 2150 600 / 600 300 / 300 Output Total 600 / 600 Balance 1850 / 2150 600 / 600 -300 / -300 Lab / Micro Data 05/11/23 09:07 05/11/23 09:07 Labs: Laboratory Results - last 24 hr 05/11/23 16:44: POC Glucose 311 H 05/11/23 22:00: POC Glucose 274 H 05/12/23 06:14: POC Glucose 192 H 05/12/23 11:24: POC Glucose 368 H Physical Exam Const alert, oriented x3 and no apparent distress Constitutional Narrative: Pleasant elderly female, obese, sitting up comfortably in bedside chair, conversing normally, no acute distress. General Appearance: cooperative and comfortable HEENT normocephalic, head/scalp atraumatic, hearing grossly normal bilaterally, nasal mucous membranes and turbinates normal and moist oral mucous membranes Eyes PERRL, EOMs intact bilaterally and conjunctivae normal Neck full ROM Chest inspection of chest normal Resp normal respiratory effort, normal air movement, no use of accessory muscles and clear to auscultation bilaterally Cardio regular rate, regular rhythm, no murmurs and peripheral pulses 2+ throughout GI normal to inspection, nondistended, normoactive bowel sounds, soft to palpation, non-tender and non-distended Back/Spine normal ROM Extremity normal to inspection, full ROM and no pedal edema Skin no rashes or lesions noted Neuro moves all extremities and no focal motor deficits Speech: speech normal Psych mental status grossly normal Assessment & Plan Assessment/Plan (1) Unresponsive episode: PLAN: Plan Patient is a 78-year-old female who presented to [facility] ED on 05/04/2023 after an unresponsive episode at her assisted living facility. 1. Unresponsive episode, debility Unclear as to where the unresponsiveness came from, she did improve with Narcan however there is no opiates in your urine drug screen. She does take Klonopin and gabapentin but unlikely to overdose in the setting of an assisted living. Had SD on admission that resolved with IV fluids. Labs were otherwise fairly benign. CT head on admit nonacute. MRI brain on 05/06 per family request also with no acute findings. Notably has not had any further episodes since admission. ? PT/OT/case management following. Lives in an assisted living, qualified for SNF on discharge. Medically for discharge on 05/09, awaiting placement. 2. Full vaginal candidiasis, resolved ? Patient noted that she has this issue often after antibiotics and she recently completed a course of antibiotics for pneumonia. Received a one-time dose of Diflucan 150 mg. Chronic medical conditions: ? Type 2 diabetes mellitus with neuropathy: Continue home Lantus 36 units in the morning and 16 units at night, Humalog sliding scale insulin with meals as needed. Accu-Cheks ACHS, adjust regimen as needed. Continue home gabapentin. Will likely be fine to resume home metformin on discharge. ? Seizure disorder: Continue home Keppra. ? Anxiety/depression: Stable. Continue home clonazepam, olanzapine, venlafaxine. ? Hyperlipidemia: Continue statin. ? COPD: Stable, not on supplemental O2. Continue home inhalers. ? Osteoporosis: Continue home alendronate. ? Cognitive impairment: Continue home memantine. ? GERD: Continue home PPI. DVT prophylaxis: Lovenox CODE STATUS: DNR CCA, DNI Expected disposition: SNF, medically ready for discharge on 05/09, awaiting placement Total clinical time spent by myself addressing the patient's medical issues, reviewing all the data, and collaborating with patient's care team: 25 minutes. Charges/Coding Visit Charges Inpatient E&M: [id number] [facility] Hosp L1
[2023-05-12 17:10] LABS: Bedside Glucose 273 mg/dL (74-106)
[2023-05-12] MEDS: OLANZapine 2.5 MG Tablet 7.5 MG PO (20:25)
[2023-05-12] MEDS: Rosuvastatin 20 MG Tablet PO (20:27)
[2023-05-12] MEDS: Insulin Glargine-YFGN 100 UNIT/ML Pen 15 UNIT SC (20:42)
[2023-05-12 21:02] LABS: Bedside Glucose 274 mg/dL (74-106)
[2023-05-13] VITALS (8 sets, daily range): BP systolic 109–152; BP diastolic 54–73; PULSE 96–108; RESP 16–18; TEMP 36.6–36.9; O2SAT 92–96
--- NOTE | 2023-05-13 04:06 | PCM.HOSP.N ---
Hospitalist Note Patient per staff with ongoing vaginal discharge. Not currently from description consistent with candidiasis, had 1x treatment with diflucan. Staff noting more green tinged discharge. Will obtain genital comprehensive culture.
[2023-05-13] MEDS: Gabapentin 100 MG Capsule 200 MG PO ×3 (05:06→20:13)
[2023-05-13] MEDS: Dicyclomine 10 MG Capsule 20 MG PO ×3 (05:06→20:13)
[2023-05-13] MEDS: Insulin Lispro 100 UNIT/ML INSULN.PEN SC ×3 (05:12→16:38)
[2023-05-13 05:36] LABS: Bedside Glucose 214 mg/dL (74-106)
[2023-05-13] MEDS: Calcium Carb/Vitamin D 1 TABLET Tablet PO ×2 (10:13→16:38)
[2023-05-13] MEDS: Ferrous Sulfate 325 MG Tablet PO (10:13)
[2023-05-13] MEDS: Aspirin 81 MG TAB.CHEW PO (10:13)
[2023-05-13] MEDS: Glycerin/Hypromellose/PEG400 15 ml Bottle 1 DRP EACH EYE ×4 (10:14→20:12)
[2023-05-13] MEDS: Fluticasone 0.05% 1 SPRAY NASAL.SRY 2 SPRAY NASAL (10:14)
[2023-05-13] MEDS: Venlafaxine HCl 75 MG Tablet PO ×2 (10:14→20:14)
[2023-05-13] MEDS: Enoxaparin 40 MG/0.4 ML Syringe SC (10:15)
[2023-05-13] MEDS: levETIRAcetam 500 MG Tablet PO ×2 (10:15→20:14)
[2023-05-13] MEDS: guaiFENesin 600 MG Tablet PO ×2 (10:15→20:15)
[2023-05-13] MEDS: Vibegron 75 MG TABLET PO (10:15)
[2023-05-13] MEDS: Magnesium Chloride 64 MG Delay Rel.Tablet 128 MG PO (10:15)
[2023-05-13] MEDS: Memantine Hydrochloride 10 MG Tablet PO ×2 (10:16→20:16)
[2023-05-13] MEDS: Nystatin Powder 15gm Bottle 1 APPLIC TOPICAL ×2 (10:16→20:15)
[2023-05-13] MEDS: Cholecalciferol (VIT D3) 25 MCG TABLET (1,000 UNITS) PO (10:16)
[2023-05-13] MEDS: Pantoprazole Sodium 40 MG Tablet PO (10:16)
[2023-05-13] MEDS: Menthol/Lanolin/Calamine/Znox 113 GM Tube 1 APPLIC TOPICAL ×2 (10:24→20:21)
[2023-05-13] MEDS: clonazePAM 0.5 MG Tablet PO ×2 (10:24→20:13)
[2023-05-13 11:51] LABS: Bedside Glucose 335 mg/dL (74-106)
--- NOTE | 2023-05-13 12:19 | PCM.PN.HOSP ---
Reason for Visit Reason for Visit: Diagnoses Transient alteration of awareness (05/04/23) Subjective Subjective Patient was noted to have continued vaginal discharge overnight, notably had been given a dose of Diflucan earlier in this hospitalization. Swab was obtained at that time. Patient seen at bedside this morning, son present. Patient states her vaginal discharge has remained stable from previous days. She denies any pain or discomfort in that region. No other acute concerns morning. Objective Data Objective Data Vital Signs: Vital Signs Temp Pulse Resp BP Pulse Ox O2 Del Method O2 Flow Rate 97.8 F 99 16 110/62 94 Nasal Cannula 2 05/13/23 09:59 05/13/23 09:59 05/13/23 09:59 05/13/23 09:59 05/13/23 09:59 05/13/23 10:07 05/13/23 11:32 Oxygen Flow Rate (L/min) 2 Oxygen Delivery Method Nasal Cannula Weight: 86.239 kg Body Mass Index (BMI) 33.7 Intake & Output: Intake and Output for Last 24 Hours 05/11/23 05/12/23 05/13/23 23:59 23:59 23:59 Intake Total 600 / 600 300 / 300 Output Total 600 / 600 Balance 600 / 600 -300 / -300 Lab / Micro Data 05/11/23 09:07 05/11/23 09:07 Labs: Laboratory Results - last 24 hr 05/12/23 16:14: POC Glucose 273 H 05/12/23 20:39: POC Glucose 274 H 05/13/23 05:11: POC Glucose 214 H 05/13/23 11:26: POC Glucose 335 H Micro: Microbiology 05/13/23 06:45 Other - Vaginal Gram Stain - Final Physical Exam Const alert, oriented x3 and no apparent distress Constitutional Narrative: Pleasant elderly female, obese, sitting up comfortably in bedside chair, conversing normally, no acute distress. General Appearance: cooperative and comfortable HEENT normocephalic, head/scalp atraumatic, hearing grossly normal bilaterally, nasal mucous membranes and turbinates normal and moist oral mucous membranes Eyes PERRL, EOMs intact bilaterally and conjunctivae normal Neck full ROM Chest inspection of chest normal Resp normal respiratory effort, normal air movement, no use of accessory muscles and clear to auscultation bilaterally Cardio regular rate, regular rhythm, no murmurs and peripheral pulses 2+ throughout GI normal to inspection, nondistended, normoactive bowel sounds, soft to palpation, non-tender and non-distended Back/Spine normal ROM Extremity normal to inspection, full ROM and no pedal edema Skin no rashes or lesions noted Neuro moves all extremities and no focal motor deficits Speech: speech normal Psych mental status grossly normal Assessment & Plan Assessment/Plan (1) Unresponsive episode: PLAN: Plan Patient is a 78-year-old female who presented to [facility] ED on 05/04/2023 after an unresponsive episode at her assisted living facility. 1. Unresponsive episode, debility Unclear as to where the unresponsiveness came from, she did improve with Narcan however there is no opiates in your urine drug screen. She does take Klonopin and gabapentin but unlikely to overdose in the setting of an assisted living. Had SD on admission that resolved with IV fluids. Labs were otherwise fairly benign. CT head on admit nonacute. MRI brain on 05/06 per family request also with no acute findings. Notably has not had any further episodes since admission. ? PT/OT/case management following. Lives in an assisted living, qualified for SNF on discharge. Medically for discharge on 05/09, awaiting placement. 2. Full vaginal candidiasis, resolved ? Patient noted that she has this issue often after antibiotics and she recently completed a course of antibiotics for pneumonia. Received a one-time dose of Diflucan 150 mg. Chronic medical conditions: ? Type 2 diabetes mellitus with neuropathy: Continue home Lantus 36 units in the morning and 16 units at night, Humalog sliding scale insulin with meals as needed. Accu-Cheks ACHS, adjust regimen as needed. Continue home gabapentin. Will likely be fine to resume home metformin on discharge. ? Seizure disorder: Continue home Keppra. ? Anxiety/depression: Stable. Continue home clonazepam, olanzapine, venlafaxine. ? Hyperlipidemia: Continue statin. ? COPD: Stable, not on supplemental O2. Continue home inhalers. ? Osteoporosis: Continue home alendronate. ? Cognitive impairment: Continue home memantine. ? GERD: Continue home PPI. DVT prophylaxis: Lovenox CODE STATUS: DNR CCA, DNI Expected disposition: SNF, medically ready for discharge on 05/09, awaiting placement Total clinical time spent by myself addressing the patient's medical issues, reviewing all the data, and collaborating with patient's care team: 25 minutes. Charges/Coding Visit Charges Inpatient E&M: 18450 [facility] Hosp L1
[2023-05-13] MEDS: Budesonide Respules 0.5 MG/2 ML AMPUL.NEB. INHALATION ×2 (13:01→19:37)
[2023-05-13] MEDS: Albuterol 2.5 MG/3 ML VIAL.NEB. INHALATION ×2 (13:01→19:36)
[2023-05-13 17:15] LABS: Bedside Glucose 355 mg/dL (74-106)
[2023-05-13] MEDS: Rosuvastatin 20 MG Tablet PO (20:13)
[2023-05-13] MEDS: OLANZapine 2.5 MG Tablet 7.5 MG PO (20:15)
[2023-05-13 22:31] LABS: Bedside Glucose 306 mg/dL (74-106)
[2023-05-13] MEDS: Insulin Glargine-YFGN 100 UNIT/ML Pen 15 UNIT SC (22:55)
[2023-05-14 04:35] VITALS: BP 118/66; PULSE 91; RESP 16; TEMP 36.6; O2SAT 94
[2023-05-14] MEDS: Gabapentin 100 MG Capsule 200 MG PO (05:49)
[2023-05-14] MEDS: Insulin Lispro 100 UNIT/ML INSULN.PEN SC ×2 (05:50→12:05)
[2023-05-14] MEDS: Dicyclomine 10 MG Capsule 20 MG PO (05:50)
[2023-05-14 06:26] LABS: Bedside Glucose 287 mg/dL (74-106)
[2023-05-14 07:11] VITALS: PULSE 90; RESP 18; O2SAT 93
[2023-05-14] MEDS: Budesonide Respules 0.5 MG/2 ML AMPUL.NEB. INHALATION (07:11)
[2023-05-14] MEDS: Albuterol 2.5 MG/3 ML VIAL.NEB. INHALATION (07:11)
[2023-05-14] MEDS: Ferrous Sulfate 325 MG Tablet PO (08:52)
[2023-05-14] MEDS: Pantoprazole Sodium 40 MG Tablet PO (08:52)
[2023-05-14] MEDS: Calcium Carb/Vitamin D 1 TABLET Tablet PO (08:52)
[2023-05-14] MEDS: Aspirin 81 MG TAB.CHEW PO (08:52)
[2023-05-14] MEDS: Cholecalciferol (VIT D3) 25 MCG TABLET (1,000 UNITS) PO (08:52)
[2023-05-14 08:55] LABS: Hematocrit 30.9 % (37-47); Hemoglobin 9.3 g/dL (12.0-15.0); Mean Corp Hgb Conc 30.1 g/dL (32-36); Mean Corpuscular Hgb 25.1 pg (27.0-32.0); Mean Corpuscular Volume 83.5 fL (81-99); Mean Platelet Vol. 9.9 fl (6.2-12.0); POSITIVE MORPHOLOGY YES; Platelet Count 273 K/mm3 (150-450); RBC Distribution Width CV 23.6 % (11.6-14.6); RBC Distribution Width SD 68.8 fl (35.1-43.9); White Blood Count 13.1 K/mm3 (4.4-11.0)
[2023-05-14 09:02] LABS: Scan Indicated on CBC? Y/N YES- FLAGS NOTED
[2023-05-14 09:11] LABS: Anion Gap 6 (5-15); BUN 13 mg/dL (7-18); BUN/Creat Ratio 15.6 RATIO (10-20); Calcium,Total 8.4 mg/dL (8.5-10.1); Chloride 104 mmol/L (98-107); Creatinine, Serum 0.83 mg/dL (0.55-1.02); EST Glomerular Filtration Rate 71 mL/min (>60); Est Glom Filt Rate - Afr Amer 86 mL/min (>60); Estimated Creatinine Clearance 60.02 ml/min; Glucose 242 mg/dL (74-106); Potassium 3.6 mmol/L (3.5-5.1); Sodium Level 137 mmol/L (136-145)
[2023-05-14] MEDS: Menthol/Lanolin/Calamine/Znox 113 GM Tube 1 APPLIC TOPICAL (10:02)
[2023-05-14] MEDS: Glycerin/Hypromellose/PEG400 15 ml Bottle 1 DRP EACH EYE (10:02)
[2023-05-14] MEDS: Fluticasone 0.05% 1 SPRAY NASAL.SRY 2 SPRAY NASAL (10:03)
[2023-05-14] MEDS: Magnesium Chloride 64 MG Delay Rel.Tablet 128 MG PO (10:03)
[2023-05-14] MEDS: levETIRAcetam 500 MG Tablet PO (10:03)
--- NOTE | 2023-05-14 10:17 | PCM.TXEXTCAR ---
Diet Diet Order/Speech Therapy: 05/04/23 18:44 Diet: Consistent Carb - Calorie Controlled Food consistency:: Regular Liquid Consistency:: Regular/Thin How many daily calories?: 2000 calorie Routine Orders/Code Status O2 Frequency: Continuous Keep PO Greater than or Equal to (%): 90 Code Status: DNRCC-A (do not intubate) Therapies Weight Bearing: Full weight bearing Physical Therapy: Eval and Treat Occupational Therapy: Eval and Treat Problem/Diagnosis (1) Unresponsive episode: Status: Acute Code(s): R40.4 - Transient alteration of awareness Plan Patient is a 78-year-old female who presented to [facility] ED on 05/04/2023 after an unresponsive episode at her assisted living facility. Possible course as noted below. Patient discharged to SNF in stable condition on 05/13. 1. Unresponsive episode, debility Unclear as to where the unresponsiveness came from, she did improve with Narcan however there is no opiates in your urine drug screen. She does take Klonopin and gabapentin but unlikely to overdose in the setting of an assisted living. Had SD on admission that resolved with IV fluids. Labs were otherwise fairly benign. CT head on admit nonacute. MRI brain on 05/06 per family request also with no acute findings. Notably has not had any further episodes since admission. ? PT/OT/case management followed. Lives in an assisted living, qualified for SNF on discharge. Medically for discharge on 05/09, discharged to SNF in stable condition on 05/13. 2. Full vaginal candidiasis, resolved ? Patient noted that she has this issue often after antibiotics and she recently completed a course of antibiotics for pneumonia. Received a one-time dose of Diflucan 150 mg. Chronic medical conditions: ? Type 2 diabetes mellitus with neuropathy: Continue home Lantus 36 units in the morning and 16 units at night, Humalog sliding scale insulin with meals as needed. Accu-Cheks ACHS, adjust regimen as needed. Continue home gabapentin. Will likely be fine to resume home metformin on discharge. ? Seizure disorder: Continue home Keppra. ? Anxiety/depression: Stable. Continue home clonazepam, olanzapine, venlafaxine. ? Hyperlipidemia: Continue statin. ? COPD: Stable, not on supplemental O2. Continue home inhalers. ? Osteoporosis: Continue home alendronate. ? Cognitive impairment: Continue home memantine. ? GERD: Continue home PPI. Total clinical time spent by myself addressing the patient's medical issues, reviewing all the data, and collaborating with patient's care team: 35 minutes. Allergies/Procedures Done in Hospital Allergies atorvastatin calcium [From Lipitor] Allergy (Verified 05/04/23 12:54) Unknown ibuprofen [From Motrin] Allergy (Verified 05/04/23 12:54) Unknown Procedures: EKG and - (CT brain without contrast, chest x-ray, MRI brain without contrast) Type of Care/Length of Stay Estimated LOS: Convalescent Care Less Than 30 days Type of Care Needed: Skilled Rehab Potential: Fair Prognosis: Fair Additional Orders/Day of Discharge H&P will serve as current which was dated: 04/05/23 Day of Discharge: 05/14/23 Discharge Plan Admission Admit Date/Time: 05/04/23 18:00 Primary Reason for Your Visit: Unresponsive episode Attending Provider: Humza Edge Primary Care Provider: Jh Hewitt Consulting Providers: Delano Tamayo; Ermias Woods Discharge Orders/Prescriptions Prescriptions: Continued aspirin 81 MG tablet,chewable 81 mg PO DAILY@0800 gabapentin 100 MG capsule 200 mg PO TID venlafaxine 75 MG tablet 75 mg PO BID clonazepam 0.5 MG tablet 0.5 mg PO BID albuterol sulfate [Ventolin HFA] 1 INHALER inhaler 2 puff inhalation Q6H PRN (Reason: WHEEZING/SHORTNESS OF BREATH) rosuvastatin [Crestor] 20 MG tablet 20 mg PO QHS cholecalciferol (vitamin D3) [Vitamin D3] 1,000 tablet 25 mcg PO DAILY Patient Comments: levetiracetam 500 mg Tablet 500 mg PO BID insulin glargine [Lantus Solostar U-100 Insulin] 100 unit/mL (3 mL) Insulin Pen 16 unit SUBCUT QHS insulin glargine [Lantus Solostar U-100 Insulin] 100 unit/mL (3 mL) Insulin Pen 36 unit SUBCUT DAILY magnesium oxide 400 mg magnesium Capsule 400 mg PO DAILY Humalog KwikPen Insulin 200 unit/mL (3 mL) Insulin Pen See Protocol SUBCUT TID Protocol: 6. Sliding Scale Insulin Custom Condition: mg/dl range Dose/Route: Number of Units Condition: 200-249 Dose/Route: 2 Condition: 250-299 Dose/Route: 4 Condition: 300-349 Dose/Route: 6 Condition: 350-399 Dose/Route: 8 Condition: 400-449 Dose/Route: 10 Condition: 450-499 Dose/Route: 12 Condition: 500+ Dose/Route: CALL Protocol Text: Custom Sliding Scale Rx Instructions: sliding scale fluticasone propionate 50 mcg/actuation spray,suspension 2 spray INTRANASAL DAILY Gemtesa 75 mg tablet 75 mg PO DAILY olanzapine 7.5 mg tablet 7.5 mg PO QHS metformin 500 mg tablet 500 mg PO BID guaifenesin 600 mg tablet extended release 12hr 600 mg PO BID acetaminophen 325 mg tablet 650 mg PO Q6H PRN (Reason: PAIN/FEVER ) Baqsimi 3 mg/actuation spray,non-aerosol 3 mg intranasal DAILY PRN (Reason: LOW BLOOD SUGAR) loperamide 2 mg capsule 2 mg PO TID PRN (Reason: DIARRHEA ) Rx Instructions: administer after each loose stool until symptoms controlled; do not exceed 8 mg per 24 hrs Trulicity 0.75 mg/0.5 mL pen injector 0.75 mg subcut MO alendronate 70 mg tablet 70 mg PO FR dicyclomine 20 mg tablet 20 mg PO TID fluticasone furoate-vilanterol [Breo Ellipta] 100-25 mcg/dose blister with device 1 ea inhalation DAILY memantine 10 mg tablet 10 mg PO BID omeprazole 40 mg capsule,delayed release(DR/EC) 40 mg PO DAILY calcium carbonate-vitamin D3 [Oyster Shell Calcium-Vit D3] 500 mg-5 mcg (200 unit) tablet 1 tab PO BIDCM Systane Gel 0.4-0.3 % drops,gel 1 drp ophthalmic (eye) 4X/DAY Rx Instructions: INSTILL ONE DROP INTO EACH EYE FOUR TIMES A DAY. albuterol sulfate 2.5 mg /3 mL (0.083 %) solution for nebulization 2.5 mg inhalation Q6H PRN (Reason: WHEEZING/SHORTNESS OF BREATH ) furosemide 40 mg Tablet 40 mg PO DAILY Qty: 30 0RF potassium chloride 20 mEq Tablet,Er Particles/Crystals 20 meq PO BIDCM Qty: 60 0RF ferrous sulfate 325 mg (65 mg iron) tablet 325 mg PO DAILY Qty: 30 0RF Referrals / Follow Up: Jh Hewitt MD [Primary Care Provider] - As soon as possible Disposition Disposition (needs filled in before D/C Order can be placed): [facility]
--- NOTE | 2023-05-14 10:27 | DS.PCM_ITS ---
Providers Date of Admission: 05/04/23 Date of Discharge: 05/14/23 Primary Care Physician: Dr. Jh Hewitt MD Reason For Visit: unresposive Diagnosis Discharge Diagnosis (1) Unresponsive episode: Status: Acute Code(s): R40.4 - Transient alteration of awareness Medications at Discharge Home Medications aspirin 81 mg chewable tablet 81 mg PO DAILY@0800 heart health 03/09/13 gabapentin 100 mg capsule 200 mg PO TID NEUROPATHY 03/09/13 clonazepam 0.5 mg tablet 0.5 mg PO BID ANXIETY 10/19/13 venlafaxine 75 mg tablet 75 mg PO BID DEPRESSION 10/19/13 albuterol sulfate 90 mcg/actuation aerosol inhaler (Ventolin HFA) 2 puff inhalation Q6H PRN WHEEZING/SHORTNESS OF BREATH 01/03/14 cholecalciferol (vitamin D3) 25 mcg (1,000 unit) tablet (Vitamin D3) 25 mcg PO DAILY SUPPLEMENT 01/06/17 rosuvastatin 20 mg tablet (Crestor) 20 mg PO QHS CHOLESTEROL 01/06/17 insulin glargine 100 unit/mL (3 mL) subcutaneous pen (Lantus Solostar U-100 Insulin) 16 unit subcut QHS DIABETES 10/22/20 insulin glargine 100 unit/mL (3 mL) subcutaneous pen (Lantus Solostar U-100 Insulin) 36 unit subcut DAILY DIABETES 10/22/20 insulin lispro 200 unit/mL (3 mL) subcutaneous pen (Humalog KwikPen U-200 I nsulin) See Protocol subcut TID sliding scale 10/22/20 levetiracetam 500 mg tablet 500 mg PO BID SEIZURES 10/22/20 magnesium oxide 400 mg PO DAILY SUPPLEMENT 10/22/20 fluticasone propionate 50 mcg/actuation nasal spray,suspension 2 spray intranasal DAILY nasal congestion 12/05/22 vibegron 75 mg tablet (Gemtesa) 75 mg PO DAILY OVERACTIVE BLADDER 12/05/22 albuterol sulfate 2.5 mg/3 mL (0.083 %) solution for nebulization 2.5 mg inhalation Q6H PRN WHEEZING/SHORTNESS OF BREATH 04/21/23 alendronate 70 mg tablet 70 mg PO FR BONE HEALTH 04/21/23 calcium carbonate 500 mg-vitamin D3 5 mcg (200 unit) tablet (Oyster Shell Calcium-Vitamin D3) 1 tab PO BIDCM SUPPLEMENT 04/21/23 dicyclomine 20 mg tablet 20 mg PO TID abdominal pain 04/21/23 dulaglutide 0.75 mg/0.5 mL subcutaneous pen injector (Trulicity) 0.75 mg subcut MO DIABETES 04/21/23 fluticasone furoate 100 mcg-vilanterol 25 mcg/dose inhalation powder (Breo Ellipta) 1 ea inhalation DAILY SHORTNESS OF BREATH 04/21/23 memantine 10 mg tablet 10 mg PO BID MEMORY 04/21/23 omeprazole 40 mg capsule,delayed release 40 mg PO DAILY GERD 04/21/23 peg 400-propylene glycol 0.4 %-0.3 % eye gel drops (Systane Gel) 1 drp ophthalmic (eye) 4X/DAY DRY EYE RELIEF 04/21/23 ferrous sulfate 325 mg (65 mg iron) tablet 325 mg PO DAILY ANEMIA #30 tabs 04/26/23 furosemide 40 mg tablet 40 mg PO DAILY EDEMA #30 tabs 04/26/23 potassium chloride 20 mEq tablet,extended release(part/cryst) 20 meq PO BIDCM SUPPLEMENT #60 tabs 04/26/23 acetaminophen 325 mg tablet 650 mg PO Q6H PRN PAIN/FEVER 05/04/23 glucagon 3 mg/actuation nasal spray (Baqsimi) 3 mg intranasal DAILY PRN LOW BLOOD SUGAR 05/04/23 guaifenesin 600 mg tablet, extended release 12 hr 600 mg PO BID CONGESTION 05/04/23 loperamide 2 mg capsule 2 mg PO TID PRN DIARRHEA 05/04/23 metformin 500 mg tablet 500 mg PO BID DIABETES 05/04/23 olanzapine 7.5 mg tablet 7.5 mg PO QHS MOOD 05/04/23 Hospital Course Operations None Procedures EKG and - (CT brain without contrast, MRI brain without contrast, chest x-ray) Summary of Care Provided Minutes Spent on Discharge: 35 Hospital Course: Patient is a 78-year-old female who presented to [facility] ED on 05/04/2023 after an unresponsive episode at her assisted living facility. Possible course as noted below. Patient discharged to SNF in stable condition on 05/13. 1. Unresponsive episode, debility Unclear as to where the unresponsiveness came from, she did improve with Narcan however there is no opiates in your urine drug screen. She does take Klonopin and gabapentin but unlikely to overdose in the setting of an assisted living. Had SD on admission that resolved with IV fluids. Labs were otherwise fairly benign. CT head on admit nonacute. MRI brain on 05/06 per family request also with no acute findings. Notably has not had any further episodes since admission. ? PT/OT/case management followed. Lives in an assisted living, qualified for SNF on discharge. Medically for discharge on 05/09, discharged to SNF in stable condition on 05/13. 2. Full vaginal candidiasis, resolved ? Patient noted that she has this issue often after antibiotics and she recently completed a course of antibiotics for pneumonia. Received a one-time dose of Diflucan 150 mg. Chronic medical conditions: ? Type 2 diabetes mellitus with neuropathy: Continue home Lantus 36 units in the morning and 16 units at night, Humalog sliding scale insulin with meals as n eeded. Accu-Cheks ACHS, adjust regimen as needed. Continue home gabapentin. Will likely be fine to resume home metformin on discharge. ? Seizure disorder: Continue home Keppra. ? Anxiety/depression: Stable. Continue home clonazepam, olanzapine, venlafaxine. ? Hyperlipidemia: Continue statin. ? COPD: Stable, not on supplemental O2. Continue home inhalers. ? Osteoporosis: Continue home alendronate. ? Cognitive impairment: Continue home memantine. ? GERD: Continue home PPI. Total clinical time spent by myself addressing the patient's medical issues, reviewing all the data, and collaborating with patient's care team: 35 minutes. Physical Exam Const alert, oriented x3 and no apparent distress Constitutional Narrative: Pleasant elderly female, obese, sitting up comfortably in bedside chair, conversing normally, no acute distress. General Appearance: cooperative and comfortable HEENT normocephalic, head/scalp atraumatic, hearing grossly normal bilaterally, nasal mucous membranes and turbinates normal and moist oral mucous membranes Eyes PERRL, EOMs intact bilaterally and conjunctivae normal Neck full ROM Chest inspection of chest normal Resp normal respiratory effort, normal air movement, no use of accessory muscles and clear to auscultation bilaterally Cardio regular rate, regular rhythm, no murmurs and peripheral pulses 2+ throughout GI normal to inspection, nondistended, normoactive bowel sounds, soft to palpation, non-tender and non-distended Back/Spine normal ROM Extremity normal to inspection, full ROM and no pedal edema Skin no rashes or lesions noted Neuro moves all extremities and no focal motor deficits Speech: speech normal Psych mental status grossly normal Weight / BMI Weight Weight: 86.239 kg Body Mass Index (BMI) 33.7 ABG / Lab / Microbiology Data 05/14/23 08:46 05/14/23 08:46 Laboratory: Laboratory Results - last 24 hr 05/13/23 11:26: POC Glucose 335 H 05/13/23 16:35: POC Glucose 355 H 05/13/23 22:12: POC Glucose 306 H 05/14/23 05:49: POC Glucose 287 H 05/14/23 08:46: WBC 13.1 H, RBC 3.70 L, Hgb 9.3 L, Hct 30.9 L, MCV 83.5, MCH 25.1 L, MCHC 30.1 L, RDW Std Deviation 68.8 H, RDW Coeff of Fadumo 23.6 H, Plt Count 273, MPV 9.9, Differential Comment COMMENT, Sodium 137, Potassium 3.6, Chloride 104, Carbon Dioxide 27.0, Anion Gap 6, BUN 13, Creatinine 0.83, Estim Creat Clear Calc 60.02, Est GFR (MDRD) Af Amer 86, Est GFR (MDRD) Non-Af 71, BUN/Creatinine Ratio 15.6, Glucose 242 H, Calcium 8.4 L Microbiology: Microbiology 05/13/23 06:45 Other - Vaginal Gram Stain - Final Meaningful Use Info Meaningful Use Diagnoses (Choose all that apply): None applicable Discharge Plan Admission Admit Date/Time: 05/04/23 18:00 Primary Reason for Your Visit: Unresponsive episode Attending Provider: Humza Edge Primary Care Provider: Jh Hewitt Consulting Providers: Delano Tamayo; Ermias Woods Discharge Orders/Prescriptions Prescriptions: Continued aspirin 81 MG tablet,chewable 81 mg PO DAILY@0800 gabapentin 100 MG capsule 200 mg PO TID venlafaxine 75 MG tablet 75 mg PO BID clonazepam 0.5 MG tablet 0.5 mg PO BID albuterol sulfate [Ventolin HFA] 1 INHALER inhaler 2 puff inhalation Q6H PRN (Reason: WHEEZING/SHORTNESS OF BREATH) rosuvastatin [Crestor] 20 MG tablet 20 mg PO QHS cholecalciferol (vitamin D3) [Vitamin D3] 1,000 tablet 25 mcg PO DAILY Patient Comments: levetiracetam 500 mg Tablet 500 mg PO BID insulin glargine [Lantus Solostar U-100 Insulin] 100 unit/mL (3 mL) Insulin Pen 16 unit SUBCUT QHS insulin glargine [Lantus Solostar U-100 Insulin] 100 unit/mL (3 mL) Insulin Pen 36 unit SUBCUT DAILY magnesium oxide 400 mg magnesium Capsule 400 mg PO DAILY Humalog KwikPen Insulin 200 unit/mL (3 mL) Insulin Pen See Protocol SUBCUT TID Protocol: 6. Sliding Scale Insulin Custom Condition: mg/dl range Dose/Route: Number of Units Condition: 200-249 Dose/Route: 2 Condition: 250-299 Dose/Route: 4 Condition: 300-349 Dose/Route: 6 Condition: 350-399 Dose/Route: 8 Condition: 400-449 Dose/Route: 10 Condition: 450-499 Dose/Route: 12 Condition: 500+ Dose/Route: CALL MD Protocol Text: Custom Sliding Scale Rx Instructions: sliding scale fluticasone propionate 50 mcg/actuation spray,suspension 2 spray INTRANASAL DAILY Gemtesa 75 mg tablet 75 mg PO DAILY olanzapine 7.5 mg tablet 7.5 mg PO QHS metformin 500 mg tablet 500 mg PO BID guaifenesin 600 mg tablet extended release 12hr 600 mg PO BID acetaminophen 325 mg tablet 650 mg PO Q6H PRN (Reason: PAIN/FEVER ) Baqsimi 3 mg/actuation spray,non-aerosol 3 mg intranasal DAILY PRN (Reason: LOW BLOOD SUGAR) loperamide 2 mg capsule 2 mg PO TID PRN (Reason: DIARRHEA ) Rx Instructions: administer after each loose stool until symptoms controlled; do not exceed 8 mg per 24 hrs Trulicity 0.75 mg/0.5 mL pen injector 0.75 mg subcut MO alendronate 70 mg tablet 70 mg PO FR dicyclomine 20 mg tablet 20 mg PO TID fluticasone furoate-vilanterol [Breo Ellipta] 100-25 mcg/dose blister with device 1 ea inhalation DAILY memantine 10 mg tablet 10 mg PO BID omeprazole 40 mg capsule,delayed release(DR/EC) 40 mg PO DAILY calcium carbonate-vitamin D3 [Oyster Shell Calcium-Vit D3] 500 mg-5 mcg (200 unit) tablet 1 tab PO BIDCM Systane Gel 0.4-0.3 % drops,gel 1 drp ophthalmic (eye) 4X/DAY Rx Instructions: INSTILL ONE DROP INTO EACH EYE FOUR TIMES A DAY. albuterol sulfate 2.5 mg /3 mL (0.083 %) solution for nebulization 2.5 mg inhalation Q6H PRN (Reason: WHEEZING/SHORTNESS OF BREATH ) furosemide 40 mg Tablet 40 mg PO DAILY Qty: 30 0RF potassium chloride 20 mEq Tablet,Er Particles/Crystals 20 meq PO BIDCM Qty: 60 0RF ferrous sulfate 325 mg (65 mg iron) tablet 325 mg PO DAILY Qty: 30 0RF Referrals / Follow Up: Jh Hewitt MD [Primary Care Provider] - As soon as possible Disposition Disposition (needs filled in before D/C Order can be placed): Care Home Facility Charges/Coding Visit Charges Inpatient E&M: 89075 Disch Hosp >30min
[2023-05-14] MEDS: Venlafaxine HCl 75 MG Tablet PO (10:47)
[2023-05-14] MEDS: Vibegron 75 MG TABLET PO (10:47)
[2023-05-14] MEDS: guaiFENesin 600 MG Tablet PO (10:47)
[2023-05-14] MEDS: Nystatin Powder 15gm Bottle 1 APPLIC TOPICAL (10:47)
[2023-05-14] MEDS: Memantine Hydrochloride 10 MG Tablet PO (10:47)
[2023-05-14] MEDS: Enoxaparin 40 MG/0.4 ML Syringe SC (10:48)
--- NOTE | 2023-05-14 10:58 | PHA.DC.MR.R ---
Pharmacy [place] Med Reconciliation Pharmacy Service has performed discharge medication reconciliation for this patient. The patient's discharge medication list was reviewed for discrepancies and discrepancies were resolved. Medications at Discharge Home Medications aspirin 81 mg chewable tablet 81 mg PO DAILY@0800 heart health 03/09/13 gabapentin 100 mg capsule 200 mg PO TID NEUROPATHY 03/09/13 clonazepam 0.5 mg tablet 0.5 mg PO BID ANXIETY 10/19/13 venlafaxine 75 mg tablet 75 mg PO BID DEPRESSION 10/19/13 albuterol sulfate 90 mcg/actuation aerosol inhaler (Ventolin HFA) 2 puff inhalation Q6H PRN WHEEZING/SHORTNESS OF BREATH 01/03/14 cholecalciferol (vitamin D3) 25 mcg (1,000 unit) tablet (Vitamin D3) 25 mcg PO DAILY SUPPLEMENT 01/06/17 rosuvastatin 20 mg tablet (Crestor) 20 mg PO QHS CHOLESTEROL 01/06/17 insulin glargine 100 unit/mL (3 mL) subcutaneous pen (Lantus Solostar U-100 Insulin) 16 unit subcut QHS DIABETES 10/22/20 insulin glargine 100 unit/mL (3 mL) subcutaneous pen (Lantus Solostar U-100 Insulin) 36 unit subcut DAILY DIABETES 10/22/20 insulin lispro 200 unit/mL (3 mL) subcutaneous pen (Humalog KwikPen U-200 Insulin) See Protocol subcut TID sliding scale 10/22/20 levetiracetam 500 mg tablet 500 mg PO BID SEIZURES 10/22/20 magnesium oxide 400 mg PO DAILY SUPPLEMENT 10/22/20 fluticasone propionate 50 mcg/actuation nasal spray,suspension 2 spray intranasal DAILY nasal congestion 12/05/22 vibegron 75 mg tablet (Gemtesa) 75 mg PO DAILY OVERACTIVE BLADDER 12/05/22 albuterol sulfate 2.5 mg/3 mL (0.083 %) solution for nebulization 2.5 mg inhalation Q6H PRN WHEEZING/SHORTNESS OF BREATH 04/21/23 alendronate 70 mg tablet 70 mg PO FR BONE HEALTH 04/21/23 calcium carbonate 500 mg-vitamin D3 5 mcg (200 unit) tablet (Oyster Shell Calcium-Vitamin D3) 1 tab PO BIDCM SUPPLEMENT 04/21/23 dicyclomine 20 mg tablet 20 mg PO TID abdominal pain 04/21/23 dulaglutide 0.75 mg/0.5 mL subcutaneous pen injector (Trulicity) 0.75 mg subcut MO DIABETES 04/21/23 fluticasone furoate 100 mcg-vilanterol 25 mcg/dose inhalation powder (Breo Ellipta) 1 ea inhalation DAILY SHORTNESS OF BREATH 04/21/23 memantine 10 mg tablet 10 mg PO BID MEMORY 04/21/23 omeprazole 40 mg capsule,delayed release 40 mg PO DAILY GERD 04/21/23 peg 400-propylene glycol 0.4 %-0.3 % eye gel drops (Systane Gel) 1 drp ophthalmic (eye) 4X/DAY DRY EYE RELIEF 04/21/23 ferrous sulfate 325 mg (65 mg iron) tablet 325 mg PO DAILY ANEMIA #30 tabs 04/26/23 furosemide 40 mg tablet 40 mg PO DAILY EDEMA #30 tabs 04/26/23 potassium chloride 20 mEq tablet,extended release(part/cryst) 20 meq PO BIDCM SUPPLEMENT #60 tabs 04/26/23 acetaminophen 325 mg tablet 650 mg PO Q6H PRN PAIN/FEVER 05/04/23 glucagon 3 mg/actuation nasal spray (Baqsimi) 3 mg intranasal DAILY PRN LOW BLOOD SUGAR 05/04/23 guaifenesin 600 mg tablet, extended release 12 hr 600 mg PO BID CONGESTION 05/04/23 loperamide 2 mg capsule 2 mg PO TID PRN DIARRHEA 05/04/23 metformin 500 mg tablet 500 mg PO BID DIABETES 05/04/23 olanzapine 7.5 mg tablet 7.5 mg PO QHS MOOD 05/04/23
[2023-05-14 11:13] VITALS: BP 116/58; PULSE 105; RESP 18; TEMP 36.6; O2SAT 94
--- NOTE | 2023-05-14 11:15 | CASEMGMT ---
Social Work Level II determination from [facility] has been completed and pt is cleared for dc to [facility]. [facility] notified and precert has been obtained. Physician notified and pt is ready for dc at this time. DC orders sent to [facility] via [facility]. Transportation arranged with Physician ambulance for 1200 pe[address] picker via cot. Pt, Pt's son, bedside nurse and [facility] notified of dc time. VM left with pt's [facility] at [facility] and notified of discharge. Phone call to Minerva at [facility] and notified of discharge to [facility] for therapy prior to return to [facility]. Disposition: [facility], skilled level of care YULISSA Ingram
[2023-05-14] MEDS: clonazePAM 0.5 MG Tablet PO (11:17)
--- NOTE | 2023-05-14 11:38 | NURSING ---
Report called to Lindsey burleson and gave report to Tiffanie self
[2023-05-14 12:25] LABS: Bedside Glucose 380 mg/dL (74-106)
== END 2023-05-14 12:33 | disposition skilled nursing facility (03) ==
LOC: ED 18:20 → MS3 18:21
PROVIDERS: Family Medicine; Emergency Provider Emergency Medicine; PCP Internal Medicine; Visit Provider Hospitalist
DX: R41.82 Altered mental status, unspecified (principal); J44.9 Chronic obstructive pulmonary disease, unspecified; G40.909 Epilepsy, unspecified, not intractable, without status epilepticus; E11.40 Type 2 diabetes mellitus with diabetic neuropathy, unspecified; Z79.4 Long term (current) use of insulin; F17.200 Nicotine dependence, unspecified, uncomplicated; E78.00 Pure hypercholesterolemia, unspecified; F41.9 Anxiety disorder, unspecified; R53.81 Other malaise; R41.89 Other symptoms and signs involving cognitive functions and awareness; Z79.51 Long term (current) use of inhaled steroids; D50.9 Iron deficiency anemia, unspecified; B37.31 Acute candidiasis of vulva and vagina; Z79.82 Long term (current) use of aspirin; K21.9 Gastro-esophageal reflux disease without esophagitis; F32.A Depression, unspecified; M81.0 Age-related osteoporosis without current pathological fracture; Z79.899 Other long term (current) drug therapy; Z86.718 Personal history of other venous thrombosis and embolism; Z79.84 Long term (current) use of oral hypoglycemic drugs; Z87.01 Personal history of pneumonia (recurrent); E86.0 Dehydration
CPT/HCPCS: 36415; 36600; 70450; 70551; 71045; 80048; 80076; 80307; 80320; 81001; 82803; 82962; 83605; 84484; 85025; 85027; 85610; 85730; 87070; 87077; 87205; 93005; 94640; 94668; 96361; 96372; 96374; 97110; 97116; 97162; 97166; 97530; 97535; 99221; 99285; J7030; A4216; G0378; G0480

== ENCOUNTER → 2024-08-04 | Outpatient (CLI) | payer MEDICARE, MEDICAID, SELFPAY | END | disposition home or self-care (01) | LOC: MTLAB 10:01 | PROVIDERS: PCP Internal Medicine; Referring Provider Physician Assistant; Visit Provider Physician Assistant | DX: L40.0 Psoriasis vulgaris (principal) | CPT/HCPCS: 36415; 86480 ==